=== PATIENT | female | born 1995 | race Caucasian/White ===

== ENCOUNTER 2016-11-04 08:51 | Emergency (ER) | payer OTHER ==
[2016-11-04 08:57] VITALS: RESP 16; TEMP 98.1
[2016-11-04] MEDS ORDERED: SODIUM CHLORIDE 0.9% 500 ML IV STA (09:45)
--- NOTE | 2016-11-04 09:51 | ED ---
General Adult HPI - General Chief complaint: Allergic Reaction Stated complaint: poss allergic reaction, feet turning purple Time Seen by Provider: 11/04/16 09:09 Source: patient, RN notes reviewed, old records reviewed Mode of arrival: wheelchair Limitations: no limitations - History of Present Illness Initial comments: This is a 21-year-old female ER for evaluation. This patient presents for evaluation of leg numbness and tingling and pain. She has bilateral lower foot pain. She has history of Crohn's IBD and irritable bowel disease currently taking infusions from [facility]. Patient had recent infusion last week. She denies any fevers. No other issues. No recent nausea vomiting or diarrhea denies blood in her stool. Patient's that she's had leg pain and feet numbness and tingling on and off for 2 days but worsening last night. Her feet feel very cold bilaterally. - Related Data Home Medications Medication Instructions Recorded Confirmed inFLIXimab [Remicade] 500 mg IVPB Q56D 03/31/14 11/04/16 Medroxyprogesterone Acetate 150 mg IM Q90D 05/12/15 11/04/16 [Depo-Provera] HYDROcodone/APAP 5-325MG [[place] 1 tab PO Q8H PRN 11/04/16 11/04/16 5-325] Omeprazole 20 mg PO DAILY PRN 11/04/16 11/04/16 Previous Rx's Medication Instructions Recorded Ondansetron [Zofran] 4 mg PO Q8HR PRN #12 tab 05/13/15 Allergies Allergy/AdvReac Type Severity Reaction Status Date / Time amoxicillin trihydrate Allergy Unknown Verified 11/04/16 09:24 [From Augmentin] potassium clavulanate Allergy Unknown Verified 11/04/16 09:24 [From Augmentin] Review of Systems ROS Statement: Those systems with pertinent positive or pertinent negative responses have been documented in the HPI. ROS Other: All systems not noted in ROS Statement are negative. Past Medical History Additional Past Medical History / Comment(s): crohns, IBD, colitis History of Any Multi-Drug Resistant Organisms: MRSA Date of last positivie culture/infection: 2002 MDRO Source:: Hip Past Surgical History: No Surgical Hx Reported Additional Past Surgical History / Comment(s): PMH Chrons Past Psychological History: No Psychological Hx Reported Smoking Status: Never smoker Past Alcohol Use History: None Reported Past Drug Use History: None Reported General Exam - General Exam Comments Initial Comments: Sluggish capillary refill bilateral lower extremity Limitations: no limitations General appearance: alert, in no apparent distress Head exam: Present: atraumatic, normocephalic, normal inspection Eye exam: Present: normal appearance, PERRL, EOMI. Absent: scleral icterus, conjunctival injection, periorbital swelling ENT exam: Present: normal exam, mucous membranes moist Neck exam: Present: normal inspection. Absent: tenderness, meningismus, lymphadenopathy Respiratory exam: Present: normal lung sounds bilaterally. Absent: respiratory distress, wheezes, rales, rhonchi, stridor Cardiovascular Exam: Present: regular rate, normal rhythm, normal heart sounds. Absent: systolic murmur, diastolic murmur, rubs, gallop, clicks GI/Abdominal exam: Present: soft, normal bowel sounds. Absent: distended, tenderness, guarding, rebound, rigid Extremities exam: Present: normal inspection, full ROM, normal capillary refill. Absent: tenderness, pedal edema, joint swelling, calf tenderness Back exam: Present: normal inspection Neurological exam: Present: alert, oriented X3, CN II-XII intact Psychiatric exam: Present: normal affect, normal mood Skin exam: Present: warm, dry, intact, normal color. Absent: rash Course Vital Signs 11/04/16 11/04/16 08:53 10:55 Temperature 98.1 F Pulse Rate 88 70 Respiratory 16 16 Rate Blood Pressure 112/70 101/53 O2 Sat by Pulse 98 Oximetry Medical Decision Making - Medical Decision Making Plan and female seen and evaluated for feet coldness and pallor. Patient does have good Doppler pulses good palpable pulses on both feet. He will with his normal will follow up with family care for evaluation regarding possible medication reaction versus earlier and on syndrome - Lab Data Result diagrams: 11/04/16 10:05 11/04/16 10:05 Lab Results 11/04/16 11/04/16 11/04/16 Range/Units 10:05 10:05 10:05 WBC 8.8 (3.8-10.6) k/uL RBC 4.77 (3.80-5.40) m/uL Hgb 14.6 (11.4-16.0) gm/dL Hct 44.0 (34.0-46.0) % MCV 92.1 (80.0-100.0) fL MCH 30.6 (25.0-35.0) pg MCHC 33.2 (31.0-37.0) g/dL RDW 12.6 (11.5-15.5) % Plt Count 231 (150-450) k/uL Neutrophils % 63 % Lymphocytes % 30 % Monocytes % 4 % Eosinophils % 0 % Basophils % 0 % Neutrophils # 5.6 (1.3-7.7) k/uL Lymphocytes # 2.6 (1.0-4.8) k/uL Monocytes # 0.4 (0-1.0) k/uL Eosinophils # 0.0 (0-0.7) k/uL Basophils # 0.0 (0-0.2) k/uL PT 11.2 (9.0-12.0) sec INR 1.1 (<1.1) APTT 23.5 (22.0-30.0) sec Sodium 142 (137-145) mmol/L Potassium 4.1 (3.5-5.1) mmol/L Chloride 104 (98-107) mmol/L Carbon Dioxide 23 (22-30) mmol/L Anion Gap 15 mmol/L BUN 8 (7-17) mg/dL Creatinine 0.68 (0.52-1.04) mg/dL Est GFR (MDRD) Af Amer >60 (>60 ml/min/1.73 sqM) Est GFR (MDRD) Non-Af >60 (>60 ml/min/1.73 sqM) Glucose 84 (74-99) mg/dL Calcium 10.0 (8.4-10.2) mg/dL Magnesium 2.1 (1.6-2.3) mg/dL Total Bilirubin 0.7 (0.2-1.3) mg/dL AST 23 (14-36) U/L ALT 26 (9-52) U/L Alkaline Phosphatase 75 (38-126) U/L Total Protein 9.4 H (6.3-8.2) g/dL Albumin 4.9 (3.5-5.0) g/dL Blood Type Blood Type Recheck Antibody Screen Spec Expiration Date 11/04/16 Range/Units 10:05 WBC (3.8-10.6) k/uL RBC (3.80-5.40) m/uL Hgb (11.4-16.0) gm/dL Hct (34.0-46.0) % MCV (80.0-100.0) fL MCH (25.0-35.0) pg MCHC (31.0-37.0) g/dL RDW (11.5-15.5) % Plt Count (150-450) k/uL Neutrophils % % Lymphocytes % % Monocytes % % Eosinophils % % Basophils % % Neutrophils # (1.3-7.7) k/uL Lymphocytes # (1.0-4.8) k/uL Monocytes # (0-1.0) k/uL Eosinophils # (0-0.7) k/uL Basophils # (0-0.2) k/uL PT (9.0-12.0) sec INR (<1.1) APTT (22.0-30.0) sec Sodium (137-145) mmol/L Potassium (3.5-5.1) mmol/L Chloride (98-107) mmol/L Carbon Dioxide (22-30) mmol/L Anion Gap mmol/L BUN (7-17) mg/dL Creatinine (0.52-1.04) mg/dL Est GFR (MDRD) Af Amer (>60 ml/min/1.73 sqM) Est GFR (MDRD) Non-Af (>60 ml/min/1.73 sqM) Glucose (74-99) mg/dL Calcium (8.4-10.2) mg/dL Magnesium (1.6-2.3) mg/dL Total Bilirubin (0.2-1.3) mg/dL AST (14-36) U/L ALT (9-52) U/L Alkaline Phosphatase (38-126) U/L Total Protein (6.3-8.2) g/dL Albumin (3.5-5.0) g/dL Blood Type O Positive Blood Type Recheck No Antibody Screen NEGATIVE Spec Expiration Date 11/07/2016 - 2304 Disposition Clinical Impression: Paresthesia of foot, bilateral Disposition: HOME SELF-CARE Condition: Good Instructions: Paresthesia (ED) Referrals: Donavan Guzman DO [Primary Care Provider] - 1-2 days
[2016-11-04 10:25] LABS: Basophils % (A) 0 %; CH 31.3; CHCM 34.1; Eosinophils % (A) 0 %; HDW 2.04; HGB 14.6 gm/dL (11.4-16.0); Luc # (Auto) 0.19; Luc % (Auto) 2; Lymphocytes # (A) 2.6 k/uL (1.0-4.8); Lymphocytes % (A) 30 %; MCH 30.6 pg (25.0-35.0); MCHC 33.2 g/dL (31.0-37.0); MCV 92.1 fL (80.0-100.0); Mean Platelet Volume 7.4; Monocytes # (A) 0.4 k/uL (0-1.0); Monocytes % (A) 4 %; Neutrophils # (A) 5.6 k/uL (1.3-7.7); Neutrophils % (A) 63 %; RBC 4.77 m/uL (3.80-5.40); RDW 12.6 % (11.5-15.5); WBC 8.8 k/uL (3.8-10.6); WBC (Perox) 9.05
[2016-11-04 10:32] LABS: INR 1.1 (<1.1); Partial Thromboplastin Time 23.5 sec (22.0-30.0); Prothrombin Time 11.2 sec (9.0-12.0)
[2016-11-04 10:39] LABS: ALT 26 U/L (9-52); AST 23 U/L (14-36); Alkaline Phosphatase 75 U/L (38-126); Anion Gap 15 mmol/L; Blood Urea Nitrogen 8 mg/dL (7-17); Carbon Dioxide 23 mmol/L (22-30); Chloride 104 mmol/L (98-107); Glucose 84 mg/dL (74-99); Magnesium 2.1 mg/dL (1.6-2.3); Non-African American GFR(MDRD) >60 (>60 ml/min/1.73 sqM); Potassium 4.1 mmol/L (3.5-5.1); Sodium 142 mmol/L (137-145); Total Bilirubin 0.7 mg/dL (0.2-1.3); Total Protein 9.4 g/dL (6.3-8.2)
[2016-11-04 10:57] VITALS: BP 101/53; PULSE 70
== END 2016-11-04 10:56 | disposition home or self-care (01) ==
LOC: EC 08:51
DX: R20.8 Other disturbances of skin sensation (principal); K50.90 Crohn's disease, unspecified, without complications; K52.3 Indeterminate colitis; Z86.14 Personal history of Methicillin resistant Staphylococcus aureus infection; Z88.0 Allergy status to penicillin; Z79.899 Other long term (current) drug therapy
CPT/HCPCS: 36415; 80053; 83735; 85025; 85610; 85730; 86850; 86900; 86901; 96360; 99283

== ENCOUNTER 2017-03-14 18:55 | Emergency (ER) | payer OTHER ==
[2017-03-14] MEDS ORDERED: RX INFO: IV CONTRAST WAS GIVEN 1 EACH MISC MISCELLANE PRN (19:41)
[2017-03-14] MEDS ORDERED: SODIUM CHLORIDE 0.9% 1,000 ML IV STA (19:42)
[2017-03-14] MEDS ORDERED: FAMOTIDINE 20 MG/2 ML VIAL IV STA (19:42)
[2017-03-14] MEDS ORDERED: ONDANSETRON 4 MG/2 ML VIAL IVP STA (19:42)
[2017-03-14] MEDS ORDERED: HYDROmorphone 1 MG/ML 1 ML SYRINGE IVP STA (19:42)
[2017-03-14] MEDS ORDERED: KETOROLAC 30 MG/ML 1 ML VIAL IVP STA (19:42)
--- NOTE | 2017-03-14 19:45 | ED ---
General Adult HPI - General Chief complaint: Abdominal Pain Stated complaint: poss bowel obstruction Time Seen by Provider: 03/14/17 19:28 Source: patient, RN notes reviewed Mode of arrival: ambulatory Limitations: no limitations - History of Present Illness Initial comments: 21-year-old female presents to the emergency Department chief complaint of concern for obstruction. Patient suffers from Crohn's disease. She was discharged on Friday after small bowel obstruction at [facility]. Patient states today she started to develop lower abdominal pain nausea vomiting to the bowel movement this morning but has not passed gas since. Patient states it feels much like the obstruction that she was diagnosed with a week ago. Patient states that she did not know she had a fever prior to arrival. Patient states she's not been feeling well for the past few days. They're concerned due to the patient's symptoms so they thought that they should be seen. Patient denies any recent shortness of breath, chest pain, back pain, numbness or tingling, dysuria or hematuria, constipation or diarrhea , headaches or visual changes, or any other current symptoms. - Related Data Home Medications Medication Instructions Recorded Confirmed Medroxyprogesterone Acetate 150 mg IM Q90D 05/12/15 03/14/17 [Depo-Provera] Aspirin/Acetaminophen/Caffeine 2 tab PO ONCE PRN 03/14/17 03/14/17 [Excedrin Migraine Caplet] Budesonide [Entocort EC] 3 mg PO TID 03/14/17 03/14/17 Dicyclomine [Bentyl] 20 mg PO DAILY PRN 03/14/17 03/14/17 Fluticasone Nasal [place] [Flonase 1 spray EA NOSTRIL DAILY PRN 03/14/17 03/14/17 Nasal [place]] Loratadine [Claritin] 10 mg PO DAILY 03/14/17 03/14/17 Lurasidone [Latuda] 40 mg PO HS 03/14/17 03/14/17 Prednisone (Unknown Dose) 1 tab PO DAILY 03/14/17 03/14/17 diphenhydrAMINE HCL [Benadryl] 25 mg PO TID PRN 03/14/17 03/14/17 Previous Rx's Medication Instructions Recorded Ondansetron [Zofran] 4 mg PO Q8HR PRN #12 tab 05/13/15 Allergies Allergy/AdvReac Type Severity Reaction Status Date / Time amoxicillin trihydrate Allergy Rash/Hives Verified 03/14/17 20:36 [From Augmentin] potassium clavulanate Allergy Rash/Hives Verified 03/14/17 20:36 [From Augmentin] Review of Systems ROS Statement: Those systems with pertinent positive or pertinent negative responses have been documented in the HPI. ROS Other: All systems not noted in ROS Statement are negative. Past Medical History Additional Past Medical History / Comment(s): crohns, IBD, colitis History of Any Multi-Drug Resistant Organisms: MRSA Date of last positivie culture/infection: 2002 MDRO Source:: Hip Past Surgical History: No Surgical Hx Reported Additional Past Surgical History / Comment(s): wisdom teeth Past Psychological History: No Psychological Hx Reported Smoking Status: Never smoker Past Alcohol Use History: None Reported Past Drug Use History: None Reported General Exam - General Exam Comments Initial Comments: General: The patient is awake and alert, in no distress, and does not appear acutely ill. Eye: Pupils are equal, round and reactive to light, extra-ocular movements are intact; there is normal conjunctiva bilaterally. No signs of icterus. Ears, nose, mouth and throat: There are moist mucous membranes. Neck: The neck is supple, there is no tenderness. Cardiovascular: There is a regular rate and rhythm. No murmur, rub or gallop is appreciated. Respiratory: Lungs are clear to auscultation, respirations are non-labored, breath sounds are equal. No wheezes, stridor, rales, or rhonchi. Gastrointestinal: Hard and distended non-tender abdomen without masses or organomegaly noted. There is no rebound or guarding present. No CVA tenderness. Bowel sounds are unremarkable. Back: There is no tenderness to palpation in the midline. There is no obvious deformity. No rashes noted. Musculoskeletal: Normal ROM, no tenderness, There is no pedal edema. There is no calf tenderness or swelling. Sensation intact. Pulses equal bilaterally 2+. Neurological: CN II-XII intact, There are no obvious motor or sensory deficits. Coordination appears grossly intact. Speech is normal. Skin: Skin is warm and dry and no rashes or lesions are noted. Psychiatric: Cooperative, appropriate mood & affect, normal judgment. Limitations: no limitations Course Vital Signs 03/14/17 19:20 Temperature 101.7 F H Pulse Rate 117 H Respiratory 20 Rate Blood Pressure 111/70 O2 Sat by Pulse 98 Oximetry Medical Decision Making - Medical Decision Making 21-year-old female presents emergency Department chief complaint of abdominal pain nausea vomiting. Patient does have a history of small bowel obstruction that has resolved unless she was discharged on Friday. At this time CAT scan and blood work is reviewed. She does appear to have an elevated white blood cell count. However this is most likely due to steroid. This time patient is reassessed and abdomen is soft and nontender and she states that she is feeling better. At this time we will send the urine for culture. 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 We did discuss return parameters and all the patient's questions. She stated that she understood and she is in agreement with this plan. This time they will be discharged home. - Lab Data Result diagrams: 03/14/17 20:00 03/14/17 20:00 Lab Results 03/14/17 03/14/17 03/14/17 Range/Units 20:00 20:00 20:00 WBC 16.7 H (3.8-10.6) k/uL RBC 4.92 (3.80-5.40) m/uL Hgb 15.4 (11.4-16.0) gm/dL Hct 44.1 (34.0-46.0) % MCV 89.8 (80.0-100.0) fL MCH 31.4 (25.0-35.0) pg MCHC 35.0 (31.0-37.0) g/dL RDW 12.7 (11.5-15.5) % Plt Count 222 (150-450) k/uL Neutrophils % 83 % Lymphocytes % 10 % Monocytes % 6 % Eosinophils % 1 % Basophils % 0 % Neutrophils # 13.9 H (1.3-7.7) k/uL Lymphocytes # 1.6 (1.0-4.8) k/uL Monocytes # 0.9 (0-1.0) k/uL Eosinophils # 0.2 (0-0.7) k/uL Basophils # 0.0 (0-0.2) k/uL PT (9.0-12.0) sec INR (<1.2) APTT (22.0-30.0) sec Sodium 139 (137-145) mmol/L Potassium 4.0 (3.5-5.1) mmol/L Chloride 104 (98-107) mmol/L Carbon Dioxide 21 L (22-30) mmol/L Anion Gap 14 mmol/L BUN 8 (7-17) mg/dL Creatinine 0.70 (0.52-1.04) mg/dL Est GFR (MDRD) Af Amer >60 (>60 ml/min/1.73 sqM) Est GFR (MDRD) Non-Af >60 (>60 ml/min/1.73 sqM) Glucose 90 (74-99) mg/dL Plasma Lactic Acid Rehan (0.7-2.0) mmol/L Calcium 9.7 (8.4-10.2) mg/dL Phosphorus 3.8 (2.5-4.5) mg/dL Magnesium 2.0 (1.6-2.3) mg/dL Total Bilirubin 0.3 (0.2-1.3) mg/dL AST 17 (14-36) U/L ALT 30 (9-52) U/L Alkaline Phosphatase 91 (38-126) U/L Total Protein 8.4 H (6.3-8.2) g/dL Albumin 4.8 (3.5-5.0) g/dL Amylase 65 (30-110) U/L Lipase 73 (23-300) U/L Urine Color Urine Appearance (Clear) Urine pH (5.0-8.0) Ur Specific [place] (1.001-1.035) Urine Protein (Negative) Urine Glucose (UA) (Negative) Urine Ketones (Negative) Urine Blood (Negative) Urine Nitrite (Negative) Urine Bilirubin (Negative) Urine Urobilinogen (<2.0) mg/dL Ur Leukocyte Esterase (Negative) Urine RBC (0-5) /hpf Urine WBC (0-5) /hpf Ur Squamous Epith Cells (0-4) /hpf Urine Mucus (None) /hpf Urine HCG, Qual Not Detected (Not Detectd) 03/14/17 03/14/17 03/14/17 Range/Units 20:00 20:00 20:00 WBC (3.8-10.6) k/uL RBC (3.80-5.40) m/uL Hgb (11.4-16.0) gm/dL Hct (34.0-46.0) % MCV (80.0-100.0) fL MCH (25.0-35.0) pg MCHC (31.0-37.0) g/dL RDW (11.5-15.5) % Plt Count (150-450) k/uL Neutrophils % % Lymphocytes % % Monocytes % % Eosinophils % % Basophils % % Neutrophils # (1.3-7.7) k/uL Lymphocytes # (1.0-4.8) k/uL Monocytes # (0-1.0) k/uL Eosinophils # (0-0.7) k/uL Basophils # (0-0.2) k/uL PT 10.6 (9.0-12.0) sec INR 1.1 (<1.2) APTT 23.7 (22.0-30.0) sec Sodium (137-145) mmol/L Potassium (3.5-5.1) mmol/L Chloride (98-107) mmol/L Carbon Dioxide (22-30) mmol/L Anion Gap mmol/L BUN (7-17) mg/dL Creatinine (0.52-1.04) mg/dL Est GFR (MDRD) Af Amer (>60 ml/min/1.73 sqM) Est GFR (MDRD) Non-Af (>60 ml/min/1.73 sqM) Glucose (74-99) mg/dL Plasma Lactic Acid Rehan 1.5 (0.7-2.0) mmol/L Calcium (8.4-10.2) mg/dL Phosphorus (2.5-4.5) mg/dL Magnesium (1.6-2.3) mg/dL Total Bilirubin (0.2-1.3) mg/dL AST (14-36) U/L ALT (9-52) U/L Alkaline Phosphatase (38-126) U/L Total Protein (6.3-8.2) g/dL Albumin (3.5-5.0) g/dL Amylase (30-110) U/L Lipase (23-300) U/L Urine Color Yellow Urine Appearance Clear (Clear) Urine pH 7.0 (5.0-8.0) Ur Specific [place] 1.014 (1.001-1.035) Urine Protein Negative (Negative) Urine Glucose (UA) Negative (Negative) Urine Ketones Negative (Negative) Urine Blood Trace H (Negative) Urine Nitrite Negative (Negative) Urine Bilirubin Negative (Negative) Urine Urobilinogen <2.0 (<2.0) mg/dL Ur Leukocyte Esterase Large H (Negative) Urine RBC 6 H (0-5) /hpf Urine WBC 38 H (0-5) /hpf Ur Squamous Epith Cells 4 (0-4) /hpf Urine Mucus Rare H (None) /hpf Urine HCG, Qual (Not Detectd) - Radiology Data Radiology results: report reviewed, image reviewed Disposition Clinical Impression: Abdominal pain Disposition: HOME SELF-CARE Condition: Stable Instructions: Abdominal Pain (ED) Additional Instructions: Please use medication as discussed. Please follow up with family doctor if symptoms have not improved over the next two days. Please return to the emergency room if your symptoms increase or worsen or for any other concerns. Referrals: Donavan Guzman DO [Primary Care Provider] - 1-2 days Time of Disposition: 21:17
[2017-03-14 20:17] LABS: Basophils % (A) 0 %; CH 30.8; CHCM 34.5; Eosinophils # (A) 0.2 k/uL (0-0.7); Eosinophils % (A) 1 %; HCT 44.1 % (34.0-46.0); HDW 2.26; HGB 15.4 gm/dL (11.4-16.0); Luc # (Auto) 0.14; Luc % (Auto) 1; Lymphocytes # (A) 1.6 k/uL (1.0-4.8); Lymphocytes % (A) 10 %; MCH 31.4 pg (25.0-35.0); MCV 89.8 fL (80.0-100.0); Mean Platelet Volume 7.4; Monocytes # (A) 0.9 k/uL (0-1.0); Monocytes % (A) 6 %; Neutrophils # (A) 13.9 k/uL (1.3-7.7); Neutrophils % (A) 83 %; RBC 4.92 m/uL (3.80-5.40); RDW 12.7 % (11.5-15.5); WBC 16.7 k/uL (3.8-10.6); WBC (Perox) 16.86
[2017-03-14 20:27] LABS: Appearance,Urine Clear (Clear); Bilirubin,Urine Negative (Negative); Glucose,Urine (UA) Negative (Negative); Ketones,Urine Negative (Negative); Protein,Urine Negative (Negative); Specific Gravity,Urine 1.014 (1.001-1.035)
[2017-03-14 20:28] LABS: ALT 30 U/L (9-52); AST 17 U/L (14-36); Alkaline Phosphatase 91 U/L (38-126); Amylase 65 U/L (30-110); Anion Gap 14 mmol/L; Blood Urea Nitrogen 8 mg/dL (7-17); Calcium 9.7 mg/dL (8.4-10.2); Carbon Dioxide 21 mmol/L (22-30); Chloride 104 mmol/L (98-107); Glucose 90 mg/dL (74-99); Leukocyte Esterase,Urine Large (Negative); Mucus,Urine Rare /hpf; Nitrite,Urine Negative (Negative); Non-African American GFR(MDRD) >60 (>60 ml/min/1.73 sqM); Particle Count 2832; Phosphorous 3.8 mg/dL (2.5-4.5); RBC,Urine 6 /hpf (0-5); Sodium 139 mmol/L (137-145); Squamous Epithelial Cell,Urine 4 /hpf (0-4); Total Bilirubin 0.3 mg/dL (0.2-1.3); Total Protein 8.4 g/dL (6.3-8.2); UA Billing (MACRO vs. MICRO) MICRO; Urobilinogen,Urine <2.0 mg/dL (<2.0); WBC,Urine 38 /hpf (0-5)
[2017-03-14 21:01] LABS: INR 1.1 (<1.2); Partial Thromboplastin Time 23.7 sec (22.0-30.0); Prothrombin Time 10.6 sec (9.0-12.0)
--- NOTE | 2017-03-14 21:03 | CT ---
EXAMINATION TYPE: CT abdomen pelvis w con DATE OF EXAM: 03/14/2017 COMPARISON: 12/21/2014 HISTORY: Generalized pain with nausea. Recent bowel obstruction CT DLP: 435.2 mGycm Automated exposure control for dose reduction was used. TECHNIQUE: Helical acquisition of images was performed from the lung bases through the pelvis. CONTRAST: Performed without Oral Contrast and with IV Contrast, patient injected with 100 mL of Omnipaque 300. FINDINGS: Lung bases are clear. There is no pleural effusion. Heart size is normal. Liver spleen pancreas appear normal. Bile ducts are not dilated. Gallbladder appears normal. There is no adrenal mass. Kidneys show satisfactory contrast opacification. There is no hydronephrosi s. There is no retroperitoneal adenopathy. There is no ascites. Bladder distends smoothly. I see no p elvic mass. There is no intestinal wall thickening. There are no dilated loops. Appendix is not seen. There is no sign of appendicitis. There is no sign of a hernia. Bony structures are intact. Uterus is retroverted. IMPRESSION: NEGATIVE CT SCAN OF THE ABDOMEN AND PELVIS. NO ADVERSE CHANGE COMPARED TO OLD EXAM. NO EVIDENCE OF IN FLAMMATORY BOWEL DISEASE.
[2017-03-14 21:19] VITALS: BP 101/59; PULSE 89; RESP 18; TEMP 98.2
== END 2017-03-14 21:29 | disposition home or self-care (01) ==
LOC: EC 18:55
DX: R10.30 Lower abdominal pain, unspecified (principal); D72.829 Elevated white blood cell count, unspecified; R11.2 Nausea with vomiting, unspecified; R50.9 Fever, unspecified; K50.90 Crohn's disease, unspecified, without complications; Z79.3 Long term (current) use of hormonal contraceptives; Z79.52 Long term (current) use of systemic steroids; Z79.899 Other long term (current) drug therapy; Z88.0 Allergy status to penicillin; Z87.19 Personal history of other diseases of the digestive system
CPT/HCPCS: 36415; 80053; 82150; 83605; 83690; 83735; 84100; 85025; 85610; 85730; 81001; 81025; 87040; 87086; 74177; 99284; 96374; 96375 ×3; 96361; J2405; J1885; J1170; Q9967

== ENCOUNTER 2017-11-19 22:09 | Emergency (ER) | payer OTHER ==
[2017-11-19 22:23] VITALS: RESP 18
[2017-11-19] MEDS ORDERED: METOCLOPRAMIDE 5 MG/ML 2 ML VIAL IVP STA (22:28)
[2017-11-19] MEDS ORDERED: SODIUM CHLORIDE 0.9% 1,000 ML IV STA (22:28)
[2017-11-19] MEDS ORDERED: MORPHINE SULFATE/PF 10MG/10ML VL IV STA (22:28)
[2017-11-19] MEDS ORDERED: RX INFO: IV CONTRAST WAS GIVEN 1 EACH MISC MISCELLANE PRN (22:28)
[2017-11-19] MEDS ORDERED: PANTOPRAZOLE 40 MG/10 ML VIAL IVP STA (22:28)
--- NOTE | 2017-11-19 22:32 | ED ---
General Adult HPI - General Chief complaint: Abdominal Pain Stated complaint: Abdominal pain Time Seen by Provider: 11/19/17 22:24 Source: patient, family, RN notes reviewed Mode of arrival: ambulatory Limitations: no limitations - History of Present Illness Initial comments: Patient is a pleasant 22-year-old female presenting to the emergency department complaining of abdominal discomfort. Symptoms started 2 days ago. Patient has discomfort somewhat in the epigastrium however more in the left lower quadrant. Patient has had some nausea without vomiting. Patient has had some diarrhea. Patient has had temperature at home up to 99. Patient does have a history of Crohn's disease. Patient does have a history of previous bowel resection secondary to obstruction. This was complicated with sepsis and patient had secondary resection because of this. - Related Data Home Medications Medication Instructions Recorded Confirmed Medroxyprogesterone Acetate 150 mg IM Q90D 05/12/15 11/19/17 [Depo-Provera] Fluticasone Nasal [place] [Flonase 1 spray EA NOSTRIL DAILY PRN 03/14/17 11/19/17 Nasal [place]] Loratadine [Claritin] 10 mg PO DAILY PRN 03/14/17 11/19/17 Dicyclomine [Bentyl] 10 mg PO BID 06/05/17 11/19/17 Lurasidone HCl [Latuda] 60 mg PO HS 06/05/17 11/19/17 Mirtazapine [Remeron] 15 mg PO HS 11/19/17 11/19/17 Omeprazole 40 mg PO DAILY 11/19/17 11/19/17 Previous Rx's Medication Instructions Recorded Hydrocodone/Acetaminophen [[place] 1 each PO Q4HR PRN #15 tab 11/20/17 5-325] Allergies Allergy/AdvReac Type Severity Reaction Status Date / Time adalimumab [From Humira] Allergy RASH/NAUSEA/VOMITING/JOINT Verified 11/19/17 22:44 PAIN amoxicillin trihydrate Allergy Rash/Hives Verified 11/19/17 22:44 [From Augmentin] potassium clavulanate Allergy Rash/Hives Verified 11/19/17 22:44 [From Augmentin] Review of Systems ROS Statement: Those systems with pertinent positive or pertinent negative responses have been documented in the HPI. ROS Other: All systems not noted in ROS Statement are negative. Constitutional: Reports: fever (Up to 99) Eyes: Denies: eye pain ENT: Denies: ear pain Respiratory: Denies: cough Cardiovascular: Denies: chest pain Endocrine: Denies: fatigue Gastrointestinal: Reports: abdominal pain, nausea, diarrhea. Denies: vomiting, constipation Genitourinary: Denies: dysuria Musculoskeletal: Denies: back pain Skin: Denies: rash Neurological: Denies: weakness Past Medical History Additional Past Medical History / Comment(s): crohns, IBD, colitis History of Any Multi-Drug Resistant Organisms: MRSA Date of last positivie culture/infection: 2002 MDRO Source:: Hip Additional Past Surgical History / Comment(s): wisdom teeth, bowel resection x 2 , sepsis Past Psychological History: No Psychological Hx Reported Smoking Status: Never smoker Past Alcohol Use History: Occasional Past Drug Use History: None Reported General Exam Limitations: no limitations General appearance: alert, in no apparent distress Head exam: Present: atraumatic Eye exam: Present: normal appearance, PERRL ENT exam: Present: normal oropharynx Neck exam: Present: normal inspection Respiratory exam: Present: normal lung sounds bilaterally Cardiovascular Exam: Present: regular rate, normal rhythm Expanded Peripheral pulses: 2+: Posterior Tibialis (R), Posterior Tibialis (L) GI/Abdominal exam: Present: soft, tenderness (Mild epigastric tenderness to palpation. Moderate left sided abdominal tenderness), guarding (Mild left-sided ), normal bowel sounds. Absent: distended, rebound, rigid, pulsatile mass Extremities exam: Present: normal inspection Neurological exam: Present: alert Psychiatric exam: Present: normal affect, normal mood Skin exam: Present: normal color Course Vital Signs 11/19/17 22:21 Temperature 98.4 F Pulse Rate 89 Respiratory 18 Rate Blood Pressure 114/69 O2 Sat by Pulse 98 Oximetry Medical Decision Making - Medical Decision Making Patient reevaluated and resting comfortably in bed. Patient is updated on results and is comfortable with discharge home. Mother does request patient have a few pain pills for home. - Lab Data Result diagrams: 11/19/17 22:56 11/19/17 22:56 Lab Results 11/19/17 11/19/17 11/19/17 Range/Units 22:56 22:56 23:03 WBC 8.5 (3.8-10.6) k/uL RBC 4.37 (3.80-5.40) m/uL Hgb 12.0 (11.4-16.0) gm/dL Hct 37.6 (34.0-46.0) % MCV 86.2 (80.0-100.0) fL MCH 27.4 (25.0-35.0) pg MCHC 31.8 (31.0-37.0) g/dL RDW 15.2 (11.5-15.5) % Plt Count 251 (150-450) k/uL Neutrophils % 57 % Lymphocytes % 32 % Monocytes % 6 % Eosinophils % 2 % Basophils % 1 % Neutrophils # 4.9 (1.3-7.7) k/uL Lymphocytes # 2.7 (1.0-4.8) k/uL Monocytes # 0.5 (0-1.0) k/uL Eosinophils # 0.2 (0-0.7) k/uL Basophils # 0.0 (0-0.2) k/uL PT (9.0-12.0) sec INR (<1.2) APTT (22.0-30.0) sec Sodium 142 (137-145) mmol/L Potassium 4.4 (3.5-5.1) mmol/L Chloride 108 H (98-107) mmol/L Carbon Dioxide 21 L (22-30) mmol/L Anion Gap 13 mmol/L BUN 11 (7-17) mg/dL Creatinine 0.50 L (0.52-1.04) mg/dL Est GFR (CKD-EPI)AfAm >90 (>60 ml/min/1.73 sqM) Est GFR (CKD-EPI)NonAf >90 (>60 ml/min/1.73 sqM) Glucose 89 (74-99) mg/dL Calcium 9.2 (8.4-10.2) mg/dL Total Bilirubin 0.2 (0.2-1.3) mg/dL AST 20 (14-36) U/L ALT 18 (9-52) U/L Alkaline Phosphatase 61 (38-126) U/L Total Protein 7.4 (6.3-8.2) g/dL Albumin 3.9 (3.5-5.0) g/dL Amylase 82 (30-110) U/L Lipase 167 (23-300) U/L Urine Color Light Yellow Urine Appearance Clear (Clear) Urine pH 6.0 (5.0-8.0) Ur Specific [place] 1.013 (1.001-1.035) Urine Protein Negative (Negative) Urine Glucose (UA) Negative (Negative) Urine Ketones Negative (Negative) Urine Blood Negative (Negative) Urine Nitrite Negative (Negative) Urine Bilirubin Negative (Negative) Urine Urobilinogen <2.0 (<2.0) mg/dL Ur Leukocyte Esterase Moderate H (Negative) Urine RBC 1 (0-5) /hpf Urine WBC 2 (0-5) /hpf Ur Squamous Epith Cells 2 (0-4) /hpf Urine Mucus Rare H (None) /hpf Urine HCG, Qual (Not Detectd) 11/19/17 11/19/17 Range/Units 23:03 23:19 WBC (3.8-10.6) k/uL RBC (3.80-5.40) m/uL Hgb (11.4-16.0) gm/dL Hct (34.0-46.0) % MCV (80.0-100.0) fL MCH (25.0-35.0) pg MCHC (31.0-37.0) g/dL RDW (11.5-15.5) % Plt Count (150-450) k/uL Neutrophils % % Lymphocytes % % Monocytes % % Eosinophils % % Basophils % % Neutrophils # (1.3-7.7) k/uL Lymphocytes # (1.0-4.8) k/uL Monocytes # (0-1.0) k/uL Eosinophils # (0-0.7) k/uL Basophils # (0-0.2) k/uL PT 9.6 (9.0-12.0) sec INR 1.0 (<1.2) APTT 21.6 L (22.0-30.0) sec Sodium (137-145) mmol/L Potassium (3.5-5.1) mmol/L Chloride (98-107) mmol/L Carbon Dioxide (22-30) mmol/L Anion Gap mmol/L BUN (7-17) mg/dL Creatinine (0.52-1.04) mg/dL Est GFR (CKD-EPI)AfAm (>60 ml/min/1.73 sqM) Est GFR (CKD-EPI)NonAf (>60 ml/min/1.73 sqM) Glucose (74-99) mg/dL Calcium (8.4-10.2) mg/dL Total Bilirubin (0.2-1.3) mg/dL AST (14-36) U/L ALT (9-52) U/L Alkaline Phosphatase (38-126) U/L Total Protein (6.3-8.2) g/dL Albumin (3.5-5.0) g/dL Amylase (30-110) U/L Lipase (23-300) U/L Urine Color Urine Appearance (Clear) Urine pH (5.0-8.0) Ur Specific [place] (1.001-1.035) Urine Protein (Negative) Urine Glucose (UA) (Negative) Urine Ketones (Negative) Urine Blood (Negative) Urine Nitrite (Negative) Urine Bilirubin (Negative) Urine Urobilinogen (<2.0) mg/dL Ur Leukocyte Esterase (Negative) Urine RBC (0-5) /hpf Urine WBC (0-5) /hpf Ur Squamous Epith Cells (0-4) /hpf Urine Mucus (None) /hpf Urine HCG, Qual Not Detected (Not Detectd) - Radiology Data Radiology results: report reviewed (Computed tomography scan abdomen pelvis shows previous surgery. Clearing of previous inflammatory changes. No evidence of obstruction. No free air or fluid.) Disposition Clinical Impression: Abdominal pain Disposition: HOME SELF-CARE Condition: Stable Instructions: Abdominal Pain (ED) Additional Instructions: Please follow-up with your primary care physician as well as fur blower operator and surgeon in the next couple days for recheck. Return for fever, vomiting, increased pain, worsening symptoms or other concerns. Prescriptions: Hydrocodone/Acetaminophen [[place] 5-325] 1 each PO Q4HR PRN #15 tab PRN Reason: Pain Referrals: Donavan Guzman DO [Primary Care Provider] - 1-2 days Time of Disposition: 00:15
[2017-11-19 23:11] LABS: Basophils % (A) 1 %; Eosinophils # (A) 0.2 k/uL (0-0.7); Eosinophils % (A) 2 %; HCT 37.6 % (34.0-46.0); Lymphocytes # (A) 2.7 k/uL (1.0-4.8); Lymphocytes % (A) 32 %; MCH 27.4 pg (25.0-35.0); MCHC 31.8 g/dL (31.0-37.0); MCV 86.2 fL (80.0-100.0); Mean Platelet Volume 7.8; Monocytes # (A) 0.5 k/uL (0-1.0); Monocytes % (A) 6 %; Neutrophils # (A) 4.9 k/uL (1.3-7.7); Neutrophils % (A) 57 %; Platelet Count 251 k/uL (150-450); RBC 4.37 m/uL (3.80-5.40); RDW 15.2 % (11.5-15.5); WBC 8.5 k/uL (3.8-10.6)
[2017-11-19 23:14] LABS: Appearance,Urine Clear (Clear); Bilirubin,Urine Negative (Negative); Blood,Urine Negative (Negative); Color,Urine Light Yellow; Glucose,Urine (UA) Negative (Negative); Ketones,Urine Negative (Negative); Leukocyte Esterase,Urine Moderate (Negative); Mucus,Urine Rare /hpf; Nitrite,Urine Negative (Negative); Protein,Urine Negative (Negative); RBC,Urine 1 /hpf (0-5); Specific Gravity,Urine 1.013 (1.001-1.035); Squamous Epithelial Cell,Urine 2 /hpf (0-4); Urobilinogen,Urine <2.0 mg/dL (<2.0); WBC,Urine 2 /hpf (0-5)
[2017-11-19 23:20] LABS: ALT 18 U/L (9-52); AST 20 U/L (14-36); Albumin 3.9 g/dL (3.5-5.0); Alkaline Phosphatase 61 U/L (38-126); Amylase 82 U/L (30-110); Anion Gap 13 mmol/L; Blood Urea Nitrogen 11 mg/dL (7-17); Calcium 9.2 mg/dL (8.4-10.2); Carbon Dioxide 21 mmol/L (22-30); Chloride 108 mmol/L (98-107); Glucose 89 mg/dL (74-99); Lipase 167 U/L (23-300); Potassium 4.4 mmol/L (3.5-5.1); Sodium 142 mmol/L (137-145); Total Bilirubin 0.2 mg/dL (0.2-1.3); Total Protein 7.4 g/dL (6.3-8.2)
[2017-11-19 23:41] LABS: Prothrombin Time 9.6 sec (9.0-12.0)
[2017-11-19 23:42] LABS: Partial Thromboplastin Time 21.6 sec (22.0-30.0)
--- NOTE | 2017-11-20 | CT ---
EXAMINATION TYPE: CT abdomen pelvis w con DATE OF EXAM: 11/19/2017 COMPARISON: 06/05/2017 HISTORY: Prior on synapse, abd pain, hx of Crohn's, IBS and colitis, and bowel resection x2, IV only CT DLP: 428.90 mGycm Automated exposure control for dose reduction was used. TECHNIQUE: Helical acquisition of images was performed from the lung bases through the pelvis. CONTRAST: Performed without Oral Contrast and with IV Contrast, patient injected with 100 mL of Isovue 300. FINDINGS: Lung bases are clear. There is no pleural effusion. There is no pericardial effusion. Liver spleen pancreas gallbladder appear normal. Bile ducts are not dilated. There is no adrenal mass . Kidneys show satisfactory contrast opacification. There is no hydronephrosis. There is no retroperi toneal adenopathy. There is no ascites. There are numerous surgical clips in the right lower quadrant with apparent resection of the right colon. There is no free fluid in the pelvis. Bladder distends s moothly. Uterus is tilted to the left side. I see no pelvic mass. I see no bony destructive process. IMPRESSION: THERE IS RIGHT SIDE ABDOMINAL SURGERY WITH RESECTION OF THE RIGHT COLON AND ILEOCOLIC ANASTOMOSIS. TH ERE IS CLEARING OF THE INFLAMMATORY CHANGES IN THE RIGHT MID ABDOMEN COMPARED TO OLD CT SCAN OF 06/05. NO EVIDENCE OF A BOWEL OBSTRUCTION. NO FREE AIR OR FLUID.
[2017-11-20 00:34] VITALS: BP 102/58; PULSE 75; TEMP 97.9
== END 2017-11-20 00:34 | disposition home or self-care (01) ==
LOC: EC 22:09
DX: R10.13 Epigastric pain (principal); R10.32 Left lower quadrant pain; R11.0 Nausea; R19.7 Diarrhea, unspecified; Z86.14 Personal history of Methicillin resistant Staphylococcus aureus infection; Z90.49 Acquired absence of other specified parts of digestive tract; Z88.0 Allergy status to penicillin; Z88.1 Allergy status to other antibiotic agents; Z88.8 Allergy status to other drugs, medicaments and biological substances; Z79.3 Long term (current) use of hormonal contraceptives; Z79.899 Other long term (current) drug therapy
CPT/HCPCS: 99284; 96374; 96375 ×2; 96361 ×2; 36415; 80053; 82150; 83690; 85025; 85610; 85730; 81001; 81025; 74177; J2765; C9113; Q9967; J2270

== ENCOUNTER 2017-12-21 11:51 | Emergency (ER) | payer OTHER ==
[2017-12-21 12:13] VITALS: TEMP 97.6
[2017-12-21] MEDS ORDERED: SODIUM CHLORIDE 0.9% 1,000 ML IV STA (12:54)
[2017-12-21] MEDS ORDERED: MORPHINE SULFATE 4 MG/0.8 ML SYRINGE (INJ) IVP STA (12:54)
[2017-12-21] MEDS ORDERED: ONDANSETRON 4 MG/2 ML VIAL IVP STA (12:54)
[2017-12-21 13:11] LABS: Basophils % (A) 0 %; Eosinophils # (A) 0.1 k/uL (0-0.7); Eosinophils % (A) 2 %; HCT 37.5 % (34.0-46.0); Lymphocytes # (A) 2.1 k/uL (1.0-4.8); Lymphocytes % (A) 43 %; MCH 27.7 pg (25.0-35.0); MCV 86.4 fL (80.0-100.0); Mean Platelet Volume 7.5; Monocytes # (A) 0.2 k/uL (0-1.0); Monocytes % (A) 5 %; Neutrophils # (A) 2.5 k/uL (1.3-7.7); Neutrophils % (A) 49 %; Platelet Count 231 k/uL (150-450); RBC 4.34 m/uL (3.80-5.40); RDW 13.7 % (11.5-15.5)
[2017-12-21 13:22] VITALS: RESP 16
[2017-12-21 13:22] LABS: ALT 17 U/L (9-52); AST 21 U/L (14-36); Albumin 3.9 g/dL (3.5-5.0); Alkaline Phosphatase 59 U/L (38-126); Amylase 65 U/L (30-110); Anion Gap 17 mmol/L; Blood Urea Nitrogen 10 mg/dL (7-17); Calcium 8.6 mg/dL (8.4-10.2); Carbon Dioxide 19 mmol/L (22-30); Chloride 112 mmol/L (98-107); Glucose 87 mg/dL (74-99); Lipase 63 U/L (23-300); Potassium 4.4 mmol/L (3.5-5.1); Sodium 148 mmol/L (137-145); Total Bilirubin 0.3 mg/dL (0.2-1.3); Total Protein 7.1 g/dL (6.3-8.2)
[2017-12-21 13:27] LABS: Bacteria,Urine Rare /hpf; Mucus,Urine Few /hpf; Squamous Epithelial Cell,Urine 5 /hpf (0-4); WBC,Urine 2 /hpf (0-5)
[2017-12-21 13:58] LABS: Bilirubin,Urine Negative (Negative); Blood,Urine Negative (Negative); Glucose,Urine (UA) Negative (Negative); Ketones,Urine Negative (Negative); Nitrite,Urine Negative (Negative); Urobilinogen,Urine <2.0 mg/dL (<2.0)
--- NOTE | 2017-12-21 13:58 | XR ---
EXAMINATION TYPE: XR KUB , 2 VIEWS DATE OF EXAM ORDERED: 12/21/2017 HISTORY: abdominal pain. COMPARISON: Previous study dated 05/23/2015. FINDINGS: Lung bases are clear. The abdominal gas pattern is normal. There is no evidence of obstruction or free air. No unusual calc ifications are seen. IMPRESSION: NORMAL ABDOMEN.
[2017-12-21 14:07] LABS: Color,Urine Yellow
[2017-12-21 14:08] LABS: Appearance,Urine Cloudy (Clear)
[2017-12-21 14:12] LABS: Leukocyte Esterase,Urine Trace (Negative); PH, Urine 5.5 (5.0-8.0); Protein,Urine Trace (Negative); Specific Gravity,Urine 1.023 (1.001-1.035)
[2017-12-21] MEDS ORDERED: DICYCLOMINE 10 MG/ML 2 ML AMP IM STA (14:14)
--- NOTE | 2017-12-21 14:14 | ED ---
Nausea/Vomiting/Diarrhea HPI - General Chief complaint: Nausea/Vomiting/Diarrhea Stated complaint: Crohn's flare Time Seen by Provider: 12/21/17 12:43 Source: patient Mode of arrival: ambulatory Limitations: no limitations - History of Present Illness Initial comments: 22-year-old female patient with past medical history significant for Crohn's colitis presented to the emergency department today for evaluation of increased abdominal pain and vomiting. Patient states that she has been having increased abdominal pain over the last month. Pain has worsened significantly over the last week. She describes the pain as sharp in nature and located mostly in the left lower quadrant. Patient states that she is unable to stop vomiting today. Unable to keep down any food or fluids. Patient denies any fever or chills. She states that she has been having diarrhea but denies any hematochezia or melena. She denies any hematuria, dysuria, urinary frequency, urinary urgency. She denies any chance of . Patient is currently taking 5 mg of prednisone daily. Patient denies any recent rash, shortness breath, chest pain, back pain, numbness, tingling, dizziness, weakness, headache, visual changes, or any other complaints. - Related Data Home Medications Medication Instructions Recorded Confirmed Loratadine [Claritin] 10 mg PO DAILY 03/14/17 12/21/17 Dicyclomine [Bentyl] 10 mg PO BID 06/05/17 12/21/17 Lurasidone HCl [Latuda] 60 mg PO HS 06/05/17 12/21/17 Mirtazapine [Remeron] 15 mg PO HS 11/19/17 12/21/17 Omeprazole 40 mg PO DAILY 11/19/17 12/21/17 predniSONE 5 mg PO DAILY 12/12/17 12/21/17 Previous Rx's Medication Instructions Recorded HYDROcodone/APAP 5-325MG [[place] 1 - 2 tab PO Q6HR PRN #12 tab 12/12/17 5-325] Sulfamethox-Tmp 800-160Mg [Bactrim 1 tab PO Q12HR 5 Days #10 tab 12/12/17 DS 800-160 mg] Ondansetron [Zofran ODT] 4 mg PO Q8HR PRN #10 tab 12/21/17 predniSONE 50 mg PO DAILY #5 tablet 12/21/17 Allergies Allergy/AdvReac Type Severity Reaction Status Date / Time adalimumab [From Humira] Allergy RASH/NAUSEA/VOMITING/JOINT Verified 12/21/17 12:12 PAIN amoxicillin trihydrate Allergy Rash/Hives Verified 12/21/17 12:12 [From Augmentin] potassium clavulanate Allergy Rash/Hives Verified 12/21/17 12:12 [From Augmentin] Review of Systems ROS Statement: Those systems with pertinent positive or pertinent negative responses have been documented in the HPI. ROS Other: All systems not noted in ROS Statement are negative. Past Medical History Past Medical History: No Reported History Additional Past Medical History / Comment(s): crohns, IBD, colitis History of Any Multi-Drug Resistant Organisms: MRSA Date of last positivie culture/infection: 2002 MDRO Source:: Hip Past Surgical History: No Surgical Hx Reported Additional Past Surgical History / Comment(s): wisdom teeth, bowel resection x 2 , sepsis Past Psychological History: Anxiety, Depression Smoking Status: Never smoker Past Alcohol Use History: None Reported Past Drug Use History: None Reported General Exam Limitations: no limitations General appearance: alert, other (This is a well-developed, well-nourished adult female patient in mild distress related to pain. Vital signs upon presentation are temperature 97.6F, pulse 101, respirations 18, blood pressure 108/74, pulse ox 98% on room air.) Eye exam: Present: normal appearance, PERRL, EOMI. Absent: scleral icterus, conjunctival injection, periorbital swelling ENT exam: Present: normal exam, normal oropharynx, mucous membranes moist Respiratory exam: Present: normal lung sounds bilaterally. Absent: respiratory distress, wheezes, rales, rhonchi, stridor Cardiovascular Exam: Present: regular rate, normal rhythm, normal heart sounds. Absent: systolic murmur, diastolic murmur, rubs, gallop, clicks GI/Abdominal exam: Present: soft, tenderness (Mild left lower quadrant tenderness), normal bowel sounds. Absent: distended, guarding, rebound, rigid Neurological exam: Present: alert, oriented X3, CN II-XII intact Psychiatric exam: Present: normal affect, normal mood Skin exam: Present: warm, dry, intact, normal color. Absent: rash Course Vital Signs 12/21/17 12/21/17 12/21/17 12:10 13:21 14:34 Temperature 97.6 F Pulse Rate 101 H 84 86 Respiratory 18 16 16 Rate Blood Pressure 108/74 101/69 82/47 O2 Sat by Pulse 98 97 99 Oximetry Medical Decision Making - Medical Decision Making 22-year-old female patient was in to to the emergency department today for evaluation of increased abdominal pain, she has a history of Crohn's colitis. States her symptoms are consistent with her usual flareups. She is having pain mostly in left lower quadrant. Physical examination did reveal some mild left lower quadrant tenderness. Labs reviewed and white blood cell count is normal. Sodium is 148, chloride 112. Urinalysis showed cloudy urine appearance, trace protein, trace leukocyte esterase, 5 squamous epithelial cells, rare bacteria, few mucus, negative hCG. She is currently being treated with Bactrim. Urinary tract infection. Patient is feeling better after receiving fluids and medications here in the department. We will give her a burst of steroids 50 mg daily for the next 5 days. She is urged to continue taking her Bentyl. She is also given Zofran. She is instructed to follow-up with her GI specialist for recheck in 1-2 days patient is instructed to return here immediately for any new, worsening, or concerning symptoms. She verbalizes understanding and agrees with this plan. - Lab Data Result diagrams: 12/21/17 12:46 12/21/17 12:46 Lab Results 12/21/17 12/21/17 12/21/17 Range/Units 12:46 12:46 13:18 WBC 5.0 (3.8-10.6) k/uL RBC 4.34 (3.80-5.40) m/uL Hgb 12.0 (11.4-16.0) gm/dL Hct 37.5 (34.0-46.0) % MCV 86.4 (80.0-100.0) fL MCH 27.7 (25.0-35.0) pg MCHC 32.0 (31.0-37.0) g/dL RDW 13.7 (11.5-15.5) % Plt Count 231 (150-450) k/uL Neutrophils % 49 % Lymphocytes % 43 % Monocytes % 5 % Eosinophils % 2 % Basophils % 0 % Neutrophils # 2.5 (1.3-7.7) k/uL Lymphocytes # 2.1 (1.0-4.8) k/uL Monocytes # 0.2 (0-1.0) k/uL Eosinophils # 0.1 (0-0.7) k/uL Basophils # 0.0 (0-0.2) k/uL Sodium 148 H (137-145) mmol/L Potassium 4.4 (3.5-5.1) mmol/L Chloride 112 H (98-107) mmol/L Carbon Dioxide 19 L (22-30) mmol/L Anion Gap 17 mmol/L BUN 10 (7-17) mg/dL Creatinine 0.61 (0.52-1.04) mg/dL Est GFR (CKD-EPI)AfAm >90 (>60 ml/min/1.73 sqM) Est GFR (CKD-EPI)NonAf >90 (>60 ml/min/1.73 sqM) Glucose 87 (74-99) mg/dL Calcium 8.6 (8.4-10.2) mg/dL Total Bilirubin 0.3 (0.2-1.3) mg/dL AST 21 (14-36) U/L ALT 17 (9-52) U/L Alkaline Phosphatase 59 (38-126) U/L Total Protein 7.1 (6.3-8.2) g/dL Albumin 3.9 (3.5-5.0) g/dL Amylase 65 (30-110) U/L Lipase 63 (23-300) U/L Urine Color Urine Appearance (Clear) Urine pH (5.0-8.0) Ur Specific [place] (1.001-1.035) Urine Protein (Negative) Urine Glucose (UA) (Negative) Urine Ketones (Negative) Urine Blood (Negative) Urine Nitrite (Negative) Urine Bilirubin (Negative) Urine Urobilinogen (<2.0) mg/dL Ur Leukocyte Esterase (Negative) Urine WBC (0-5) /hpf Ur Squamous Epith Cells (0-4) /hpf Urine Bacteria (None) /hpf Urine Mucus (None) /hpf Urine HCG, Qual Not Detected (Not Detectd) 12/21/17 Range/Units 13:18 WBC (3.8-10.6) k/uL RBC (3.80-5.40) m/uL Hgb (11.4-16.0) gm/dL Hct (34.0-46.0) % MCV (80.0-100.0) fL MCH (25.0-35.0) pg MCHC (31.0-37.0) g/dL RDW (11.5-15.5) % Plt Count (150-450) k/uL Neutrophils % % Lymphocytes % % Monocytes % % Eosinophils % % Basophils % % Neutrophils # (1.3-7.7) k/uL Lymphocytes # (1.0-4.8) k/uL Monocytes # (0-1.0) k/uL Eosinophils # (0-0.7) k/uL Basophils # (0-0.2) k/uL Sodium (137-145) mmol/L Potassium (3.5-5.1) mmol/L Chloride (98-107) mmol/L Carbon Dioxide (22-30) mmol/L Anion Gap mmol/L BUN (7-17) mg/dL Creatinine (0.52-1.04) mg/dL Est GFR (CKD-EPI)AfAm (>60 ml/min/1.73 sqM) Est GFR (CKD-EPI)NonAf (>60 ml/min/1.73 sqM) Glucose (74-99) mg/dL Calcium (8.4-10.2) mg/dL Total Bilirubin (0.2-1.3) mg/dL AST (14-36) U/L ALT (9-52) U/L Alkaline Phosphatase (38-126) U/L Total Protein (6.3-8.2) g/dL Albumin (3.5-5.0) g/dL Amylase (30-110) U/L Lipase (23-300) U/L Urine Color Yellow Urine Appearance Cloudy H (Clear) Urine pH 5.5 (5.0-8.0) Ur Specific [place] 1.023 (1.001-1.035) Urine Protein Trace H (Negative) Urine Glucose (UA) Negative (Negative) Urine Ketones Negative (Negative) Urine Blood Negative (Negative) Urine Nitrite Negative (Negative) Urine Bilirubin Negative (Negative) Urine Urobilinogen <2.0 (<2.0) mg/dL Ur Leukocyte Esterase Trace H (Negative) Urine WBC 2 (0-5) /hpf Ur Squamous Epith Cells 5 H (0-4) /hpf Urine Bacteria Rare H (None) /hpf Urine Mucus Few H (None) /hpf Urine HCG, Qual (Not Detectd) - Radiology Data Radiology results: report reviewed, image reviewed KUB x-ray was obtained the abdominal gas pattern is normal. There is no evidence of obstruction or free air. No unusual calcifications are seen. Impression by Dr. Wynne shows normal abdomen. Disposition Clinical Impression: Exacerbation of Crohn's disease Disposition: HOME SELF-CARE Condition: Good Instructions: Crohn Disease (ED) Additional Instructions: Take medications as directed. Follow-up with her GI specialist and her primary care physician for reevaluation in 1-2 days. Return here immediately for any new, worsening, or concerning symptoms. Prescriptions: Ondansetron [Zofran ODT] 4 mg PO Q8HR PRN #10 tab PRN Reason: Nausea predniSONE 50 mg PO DAILY #5 tablet Is patient prescribed a controlled substance at d/c from ED?: No Referrals: Donavan Guzman DO [Primary Care Provider] - 1-2 days Time of Disposition: 14:14
[2017-12-21] MEDS ORDERED: methylPREDNISolone SOD SUCCI 125 MG/2 ML VIAL IV STA (14:15)
[2017-12-21 14:34] VITALS: BP 82/47; PULSE 86
== END 2017-12-21 14:52 | disposition home or self-care (01) ==
LOC: EC 11:51
DX: K50.90 Crohn's disease, unspecified, without complications (principal); F32.9 Major depressive disorder, single episode, unspecified; Z86.14 Personal history of Methicillin resistant Staphylococcus aureus infection; Z79.899 Other long term (current) drug therapy; Z79.52 Long term (current) use of systemic steroids; Z88.8 Allergy status to other drugs, medicaments and biological substances; Z88.0 Allergy status to penicillin
CPT/HCPCS: 36415; 80053; 82150; 83690; 85025; 81003; 81001; 81025; 74018; 99284; 96374; 96375 ×2; 96361; 96372; J0500; J2930; J2405; J2270

== ENCOUNTER → 2018-01-02 | Outpatient (CLI) | payer OTHER ==
[2018-01-02 13:23] VITALS: BP 109/66; PULSE 76; RESP 16; TEMP 98.6
== END | disposition home or self-care (01) ==
LOC: PROCWHC3 12:56
PROVIDERS: ATTEND Internal Medicine Infectious Disease
DX: K50.90 Crohn's disease, unspecified, without complications (principal)
CPT/HCPCS: 96523

== ENCOUNTER 2018-01-04 21:09 | Emergency (ER) | payer OTHER ==
[2018-01-04] MEDS ORDERED: SODIUM CHLORIDE 0.9% 1,000 ML IV ONE (21:58)
[2018-01-04] MEDS ORDERED: MORPHINE SULFATE 4 MG/ML SYRINGE IVP STA ×2 (21:58→23:45)
[2018-01-04] MEDS ORDERED: ONDANSETRON 4 MG/2 ML VIAL IVP STA (21:58)
--- NOTE | 2018-01-04 22:18 | ED ---
General Adult HPI - General Chief complaint: Allergic Reaction Stated complaint: med reaction Time Seen by Provider: 01/04/18 21:34 Source: patient, family Mode of arrival: ambulatory Limitations: no limitations - History of Present Illness Initial comments: 22-year-old female patient presents to the emergency department today for evaluation of right lower quadrant abdominal pain with vomiting and diarrhea. Patient has also been having low-grade fevers. States that symptoms started approximately 3 days ago after receiving an infusion of Stolera a medication for her Crohn's disease. Patient states that the pain in her right lower quadrant is the same as her usual Crohn's flareups. Patient has had two bowel resections previously and did have appendectomy as well during one of the surgeries. Patient states that she has chronic diarrhea. Patient states that she did have some hematochezia yesterday, states it was a very small amount streaking over the surface of the stool. Patient denies any cough, congestion, or sore throat. Denies any hematuria, dysuria, urinary frequency, or urinary urgency. Patient denies any recent rash, shortness breath, chest pain, back pain , numbness, tingling, dizziness, weakness, headache, visual changes, or any other complaints. - Related Data Home Medications Medication Instructions Recorded Confirmed Loratadine [Claritin] 10 mg PO DAILY 03/14/17 01/02/18 Dicyclomine [Bentyl] 10 mg PO BID 06/05/17 01/02/18 Lurasidone HCl [Latuda] 60 mg PO HS 06/05/17 01/02/18 Mirtazapine [Remeron] 15 mg PO HS 11/19/17 01/02/18 Omeprazole 40 mg PO DAILY 11/19/17 01/02/18 Ustekinumab [Stelara] 45 mg SQ 01/04/18 Previous Rx's Medication Instructions Recorded HYDROcodone/APAP 5-325MG [[place] 1 - 2 tab PO Q6HR PRN #12 tab 12/12/17 5-325] Ondansetron [Zofran ODT] 4 mg PO Q8HR PRN #10 tab 12/21/17 Hydrocodone/Acetaminophen [[place] 1 tab PO Q6HR PRN #12 tab 01/04/18 5-325] Allergies Allergy/AdvReac Type Severity Reaction Status Date / Time adalimumab [From Humira] Allergy RASH/NAUSEA/VOMITING/JOINT Verified 01/04/18 21:15 PAIN amoxicillin trihydrate Allergy Rash/Hives Verified 01/04/18 21:15 [From Augmentin] potassium clavulanate Allergy Rash/Hives Verified 01/04/18 21:15 [From Augmentin] Review of Systems ROS Statement: Those systems with pertinent positive or pertinent negative responses have been documented in the HPI. ROS Other: All systems not noted in ROS Statement are negative. Past Medical History Past Medical History: No Reported History Additional Past Medical History / Comment(s): crohns, IBD, colitis History of Any Multi-Drug Resistant Organisms: MRSA Date of last positivie culture/infection: 2002 MDRO Source:: Hip Past Surgical History: No Surgical Hx Reported Additional Past Surgical History / Comment(s): wisdom teeth, bowel resection x 2 , sepsis Past Psychological History: Anxiety, Depression Smoking Status: Never smoker Past Alcohol Use History: Occasional Past Drug Use History: None Reported General Exam Limitations: no limitations General appearance: alert, in no apparent distress, other (This is a well- developed, nourished adult female patient. Vital signs upon presentation are temperature 100.0F, pulse 91, respirations 20, blood pressure 120/78, pulse ox 98% on room air.) Eye exam: Present: normal appearance, PERRL, EOMI. Absent: scleral icterus, conjunctival injection, periorbital swelling ENT exam: Present: normal exam, normal oropharynx, mucous membranes moist Respiratory exam: Present: normal lung sounds bilaterally. Absent: respiratory distress, wheezes, rales, rhonchi, stridor Cardiovascular Exam: Present: regular rate, normal rhythm, normal heart sounds. Absent: systolic murmur, diastolic murmur, rubs, gallop, clicks GI/Abdominal exam: Present: soft, tenderness (Right lower quadrant tenderness), normal bowel sounds. Absent: distended, guarding, rebound, rigid Neurological exam: Present: alert, oriented X3, CN II-XII intact Psychiatric exam: Present: normal affect, normal mood Skin exam: Present: warm, dry, intact, normal color. Absent: rash Course Vital Signs 01/04/18 01/04/18 21:12 23:40 Temperature 100 F H 98.6 F Pulse Rate 91 72 Respiratory 20 16 Rate Blood Pressure 120/78 114/55 O2 Sat by Pulse 98 99 Oximetry Medical Decision Making - Medical Decision Making 22-year-old female patient presented to the emergency department today for evaluation of vomiting, right lower quadrant pain, and diarrhea following infusion of Stelara. Physical examination did reveal some mild right lower quadrant abdominal tenderness. Patient does have a history of Crohn's disease and states this is her usual pain location. Patient did receive IV fluids, nausea medication and pain medication here in the department. She is feeling somewhat improved. I did offer CT scanning for abdominal pain and tenderness however patient refuses at this time stating that her pain symptoms are consistent with her usual Crohn's flare. Patient also did have low-grade fever , we did perform labs which showed no elevated white blood cell count, urinalysis negative for infection. We did want to perform influenza testing however patient refused due to nasal passage issues. I we did discuss Stelara infusion as a possible cause for an increase in her symptoms. She is instructed to follow-up with the primary care physician as well as her cctv technician for further evaluation. We will provide a short course of [place] for pain management. She is advised to use these carefully. Return parameters discussed in detail. She verbalizes understanding and agrees with this plan. - Lab Data Result diagrams: 01/04/18 21:16 01/04/18 21:16 Lab Results 01/04/18 01/04/18 01/04/18 Range/Units 21:16 21:16 21:16 WBC 7.2 (3.8-10.6) k/uL RBC 4.44 (3.80-5.40) m/uL Hgb 12.6 (11.4-16.0) gm/dL Hct 38.1 (34.0-46.0) % MCV 85.9 (80.0-100.0) fL MCH 28.5 (25.0-35.0) pg MCHC 33.2 (31.0-37.0) g/dL RDW 13.0 (11.5-15.5) % Plt Count 222 (150-450) k/uL Neutrophils % 63 % Lymphocytes % 25 % Monocytes % 7 % Eosinophils % 2 % Basophils % 0 % Neutrophils # 4.6 (1.3-7.7) k/uL Lymphocytes # 1.8 (1.0-4.8) k/uL Monocytes # 0.5 (0-1.0) k/uL Eosinophils # 0.1 (0-0.7) k/uL Basophils # 0.0 (0-0.2) k/uL Sodium 144 (137-145) mmol/L Potassium 4.2 (3.5-5.1) mmol/L Chloride 108 H (98-107) mmol/L Carbon Dioxide 20 L (22-30) mmol/L Anion Gap 16 mmol/L BUN 9 (7-17) mg/dL Creatinine 0.80 (0.52-1.04) mg/dL Est GFR (CKD-EPI)AfAm >90 (>60 ml/min/1.73 sqM) Est GFR (CKD-EPI)NonAf >90 (>60 ml/min/1.73 sqM) Glucose 87 (74-99) mg/dL Plasma Lactic Acid Rehan 1.2 (0.7-2.0) mmol/L Calcium 9.4 (8.4-10.2) mg/dL Total Bilirubin 0.2 (0.2-1.3) mg/dL AST 21 (14-36) U/L ALT 27 (9-52) U/L Alkaline Phosphatase 61 (38-126) U/L Total Protein 7.6 (6.3-8.2) g/dL Albumin 4.2 (3.5-5.0) g/dL Amylase 80 (30-110) U/L Lipase 114 (23-300) U/L Urine Color Urine Appearance (Clear) Urine pH (5.0-8.0) Ur Specific [place] (1.001-1.035) Urine Protein (Negative) Urine Glucose (UA) (Negative) Urine Ketones (Negative) Urine Blood (Negative) Urine Nitrite (Negative) Urine Bilirubin (Negative) Urine Urobilinogen (<2.0) mg/dL Ur Leukocyte Esterase (Negative) Urine RBC (0-5) /hpf Urine WBC (0-5) /hpf Ur Squamous Epith Cells (0-4) /hpf Urine HCG, Qual (Not Detectd) 01/04/18 01/04/18 Range/Units 21:16 21:16 WBC (3.8-10.6) k/uL RBC (3.80-5.40) m/uL Hgb (11.4-16.0) gm/dL Hct (34.0-46.0) % MCV (80.0-100.0) fL MCH (25.0-35.0) pg MCHC (31.0-37.0) g/dL RDW (11.5-15.5) % Plt Count (150-450) k/uL Neutrophils % % Lymphocytes % % Monocytes % % Eosinophils % % Basophils % % Neutrophils # (1.3-7.7) k/uL Lymphocytes # (1.0-4.8) k/uL Monocytes # (0-1.0) k/uL Eosinophils # (0-0.7) k/uL Basophils # (0-0.2) k/uL Sodium (137-145) mmol/L Potassium (3.5-5.1) mmol/L Chloride (98-107) mmol/L Carbon Dioxide (22-30) mmol/L Anion Gap mmol/L BUN (7-17) mg/dL Creatinine (0.52-1.04) mg/dL Est GFR (CKD-EPI)AfAm (>60 ml/min/1.73 sqM) Est GFR (CKD-EPI)NonAf (>60 ml/min/1.73 sqM) Glucose (74-99) mg/dL Plasma Lactic Acid Rehan (0.7-2.0) mmol/L Calcium (8.4-10.2) mg/dL Total Bilirubin (0.2-1.3) mg/dL AST (14-36) U/L ALT (9-52) U/L Alkaline Phosphatase (38-126) U/L Total Protein (6.3-8.2) g/dL Albumin (3.5-5.0) g/dL Amylase (30-110) U/L Lipase (23-300) U/L Urine Color Light Yellow Urine Appearance Clear (Clear) Urine pH 6.0 (5.0-8.0) Ur Specific [place] 1.013 (1.001-1.035) Urine Protein Negative (Negative) Urine Glucose (UA) Negative (Negative) Urine Ketones Negative (Negative) Urine Blood Negative (Negative) Urine Nitrite Negative (Negative) Urine Bilirubin Negative (Negative) Urine Urobilinogen <2.0 (<2.0) mg/dL Ur Leukocyte Esterase Small H (Negative) Urine RBC 1 (0-5) /hpf Urine WBC 2 (0-5) /hpf Ur Squamous Epith Cells 1 (0-4) /hpf Urine HCG, Qual Not Detected (Not Detectd) - Radiology Data Radiology results: report reviewed, image reviewed Two-view x-ray of the abdomen shows bowel gas pattern is normal. No sign of intestinal obstruction or pneumoperitoneum. Fecal pattern is normal. Lung bases are clear. There are no pathologic calcifications over the kidneys. Impression by Dr. Sanford shows nonacute abdomen with no change. Disposition Clinical Impression: Crohn's colitis, Medication side effects Disposition: HOME SELF-CARE Condition: Good Instructions: Crohn Disease (ED), Acute Nausea and Vomiting (ED) Additional Instructions: Increase fluids. Follow-up with her GI specialist as soon as possible. Take medications as directed. Use opiate medication with caution. Return here immediately for any new, worsening, or concerning symptoms. Prescriptions: Hydrocodone/Acetaminophen [[place] 5-325] 1 tab PO Q6HR PRN #12 tab PRN Reason: Pain Is patient prescribed a controlled substance at d/c from ED?: Yes When asked, does pt state using other controlled substances?: No Referrals: Donavan Guzman DO [Primary Care Provider] - 1-2 days Time of Disposition: 23:46
[2018-01-04 22:37] LABS: Appearance,Urine Clear (Clear); Bilirubin,Urine Negative (Negative); Blood,Urine Negative (Negative); Color,Urine Light Yellow; Glucose,Urine (UA) Negative (Negative); Ketones,Urine Negative (Negative); Leukocyte Esterase,Urine Small (Negative); Nitrite,Urine Negative (Negative); Protein,Urine Negative (Negative); RBC,Urine 1 /hpf (0-5); Specific Gravity,Urine 1.013 (1.001-1.035); Squamous Epithelial Cell,Urine 1 /hpf (0-4); Urobilinogen,Urine <2.0 mg/dL (<2.0); WBC,Urine 2 /hpf (0-5)
[2018-01-04 22:39] LABS: Basophils % (A) 0 %; Eosinophils # (A) 0.1 k/uL (0-0.7); Eosinophils % (A) 2 %; HCT 38.1 % (34.0-46.0); HGB 12.6 gm/dL (11.4-16.0); Lymphocytes # (A) 1.8 k/uL (1.0-4.8); Lymphocytes % (A) 25 %; MCH 28.5 pg (25.0-35.0); MCHC 33.2 g/dL (31.0-37.0); MCV 85.9 fL (80.0-100.0); Monocytes # (A) 0.5 k/uL (0-1.0); Monocytes % (A) 7 %; Neutrophils # (A) 4.6 k/uL (1.3-7.7); Neutrophils % (A) 63 %; Platelet Count 222 k/uL (150-450); RBC 4.44 m/uL (3.80-5.40); WBC 7.2 k/uL (3.8-10.6)
[2018-01-04 22:42] LABS: ALT 27 U/L (9-52); AST 21 U/L (14-36); Albumin 4.2 g/dL (3.5-5.0); Alkaline Phosphatase 61 U/L (38-126); Amylase 80 U/L (30-110); Anion Gap 16 mmol/L; Blood Urea Nitrogen 9 mg/dL (7-17); Calcium 9.4 mg/dL (8.4-10.2); Carbon Dioxide 20 mmol/L (22-30); Chloride 108 mmol/L (98-107); Glucose 87 mg/dL (74-99); Lipase 114 U/L (23-300); Potassium 4.2 mmol/L (3.5-5.1); Sodium 144 mmol/L (137-145); Total Bilirubin 0.2 mg/dL (0.2-1.3); Total Protein 7.6 g/dL (6.3-8.2)
--- NOTE | 2018-01-04 23:07 | XR ---
EXAMINATION TYPE: XR KUB DATE OF EXAM: 01/04/2018 COMPARISON: 12/21/2017 HISTORY: Right lower quadrant pain TECHNIQUE: 2 views FINDINGS: Bowel gas pattern is normal. There is no sign of intestinal obstruction or pneumoperitoneum . Fecal pattern is normal. Lung bases are clear. There are no pathologic calcifications over the kidn eys. IMPRESSION: Nonacute abdomen. No change.
[2018-01-04 23:41] VITALS: BP 114/55; PULSE 72; RESP 16; TEMP 98.6
== END 2018-01-05 00:09 | disposition home or self-care (01) ==
LOC: EC 21:09
DX: K50.10 Crohn's disease of large intestine without complications (principal); T50.995A Adverse effect of other drugs, medicaments and biological substances, initial encounter; F32.9 Major depressive disorder, single episode, unspecified; Z79.899 Other long term (current) drug therapy; Z88.0 Allergy status to penicillin; Z88.8 Allergy status to other drugs, medicaments and biological substances; Z86.14 Personal history of Methicillin resistant Staphylococcus aureus infection; Z90.49 Acquired absence of other specified parts of digestive tract
CPT/HCPCS: 36415; 80053; 82150; 83605; 83690; 85025; 81001; 81025; 87040; 87086; 74018; 99284; 96374; 96375; 96376; 96361; J2270; J2405

== ENCOUNTER 2018-02-08 21:50 | Emergency (ER) | payer OTHER ==
[2018-02-08] MEDS ORDERED: HYDROmorphone 0.5 MG/0.5 ML SYRINGE IVP STA ×2 (22:40→23:50)
[2018-02-08] MEDS ORDERED: ONDANSETRON 4 MG/2 ML VIAL IVP STA (22:40)
[2018-02-08] MEDS ORDERED: methylPREDNISolone SOD SUCCI 125 MG/2 ML VIAL IV STA (22:40)
--- NOTE | 2018-02-08 22:40 | ED ---
General Adult HPI - General Chief complaint: Abdominal Pain Stated complaint: GI Bleed Time Seen by Provider: 02/08/18 22:00 Source: patient, RN notes reviewed Mode of arrival: ambulatory Limitations: no limitations - History of Present Illness Initial comments: This is a 22-year-old female who has Crohn's disease. Patient has had multiple surgeries removing part of her intestines. 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 Patient is on a immunologic and steroids at this time. Patient comes in today with significant right upper quadrant abdominal pain and epigastric abdominal pain. Patient also is having blood per rectum she 's had 5 bloody bowel movements. Patient denies any fever chills. Patient states she gets all of her treatment at which is where she like to go if she needs to be admitted today. Patient denies any nausea vomiting. - Related Data Home Medications Medication Instructions Recorded Confirmed Loratadine [Claritin] 10 mg PO DAILY 03/14/17 01/02/18 Dicyclomine [Bentyl] 10 mg PO BID 06/05/17 01/02/18 Lurasidone HCl [Latuda] 60 mg PO HS 06/05/17 01/02/18 Mirtazapine [Remeron] 15 mg PO HS 11/19/17 01/02/18 Omeprazole 40 mg PO DAILY 11/19/17 01/02/18 Ustekinumab [Stelara] 45 mg SQ 01/04/18 Previous Rx's Medication Instructions Recorded HYDROcodone/APAP 5-325MG [[place] 1 - 2 tab PO Q6HR PRN #12 tab 12/12/17 5-325] Ondansetron [Zofran ODT] 4 mg PO Q8HR PRN #10 tab 12/21/17 Hydrocodone/Acetaminophen [[place] 1 tab PO Q6HR PRN #12 tab 01/04/18 5-325] Allergies Allergy/AdvReac Type Severity Reaction Status Date / Time adalimumab [From Humira] Allergy RASH/NAUSEA/VOMITING/JOINT Verified 02/08/18 22:01 PAIN amoxicillin trihydrate Allergy Rash/Hives Verified 02/08/18 22:01 [From Augmentin] potassium clavulanate Allergy Rash/Hives Verified 02/08/18 22:01 [From Augmentin] Review of Systems ROS Statement: Those systems with pertinent positive or pertinent negative responses have been documented in the HPI. ROS Other: All systems not noted in ROS Statement are negative. Past Medical History Past Medical History: No Reported History Additional Past Medical History / Comment(s): crohns, IBD, colitis History of Any Multi-Drug Resistant Organisms: MRSA Date of last positivie culture/infection: 2002 MDRO Source:: Hip Past Surgical History: Bowel Resection Additional Past Surgical History / Comment(s): wisdom teeth, bowel resection x 2 , sepsis Past Psychological History: Anxiety, Depression Smoking Status: Never smoker Past Alcohol Use History: Occasional Past Drug Use History: None Reported General Exam - General Exam Comments Initial Comments: GENERAL: Patient is well-developed and well-nourished. Patient is nontoxic and well- hydrated and is in moderate distress. ENT: Neck is soft and supple. No significant lymphadenopathy is noted. Oropharynx is clear. Moist mucous membranes. Neck has full range of motion without eliciting any pain. EYES: The sclera were anicteric and conjunctiva were pink and moist. Extraocular movements were intact and pupils were equal round and reactive to light. Eyelids were unremarkable. PULMONARY: Unlabored respirations. Good breath sounds bilaterally. No audible rales rhonchi or wheezing was noted. CARDIOVASCULAR: There is a regular rate and rhythm without any murmurs gallops or rubs. ABDOMEN: Abdomen is tender in the right upper and epigastric area.. No palpable organomegaly was noted. There is no palpable pulsatile mass. SKIN: Skin is clear with no lesions or rashes and otherwise unremarkable. NEUROLOGIC: Patient is alert and oriented x3. Cranial nerves II through XII are grossly intact. Motor and sensory are also intact. Normal speech, volume and content. Symmetrical smile. MUSCULOSKELETAL: Normal extremities with adequate strength and full range of motion. No lower extremity swelling or edema. No calf tenderness. LYMPHATICS: No significant lymphadenopathy is noted PSYCHIATRIC: Normal psychiatric evaluation. Normal interpersonal interactions appears functionally intact in deals appropriately with others. No signs of depression. No signs of anxiety. Limitations: no limitations Course Vital Signs 02/08/18 02/08/18 02/08/18 21:59 22:58 23:49 Temperature 98.7 F Pulse Rate 94 97 78 Respiratory 20 17 18 Rate Blood Pressure 127/83 109/59 101/64 O2 Sat by Pulse 99 97 98 Oximetry Medical Decision Making - Medical Decision Making KUB shows no acute abnormality. Patient continues to have some bloody bowel movement. After the pain medication patient felt a little bit better. I spoke with Soto Ferreira in a Dr. Galeas he agreed to accept the patient. - Lab Data Result diagrams: 02/08/18 22:41 02/08/18 22:41 Lab Results 02/08/18 02/08/18 02/08/18 Range/Units 22:41 22:41 22:41 WBC 14.4 H (3.8-10.6) k/uL RBC 4.05 (3.80-5.40) m/uL Hgb 11.2 L (11.4-16.0) gm/dL Hct 34.7 (34.0-46.0) % MCV 85.7 (80.0-100.0) fL MCH 27.8 (25.0-35.0) pg MCHC 32.4 (31.0-37.0) g/dL RDW 14.5 (11.5-15.5) % Plt Count 290 (150-450) k/uL Neutrophils % 56 % Lymphocytes % 35 % Monocytes % 6 % Eosinophils % 1 % Basophils % 0 % Neutrophils # 8.1 H (1.3-7.7) k/uL Lymphocytes # 5.0 H (1.0-4.8) k/uL Monocytes # 0.9 (0-1.0) k/uL Eosinophils # 0.1 (0-0.7) k/uL Basophils # 0.0 (0-0.2) k/uL Manual Slide Review Performed PT (9.0-12.0) sec INR (<1.2) APTT (22.0-30.0) sec Sodium 139 (137-145) mmol/L Potassium 4.0 (3.5-5.1) mmol/L Chloride 105 (98-107) mmol/L Carbon Dioxide 22 (22-30) mmol/L Anion Gap 12 mmol/L BUN 14 (7-17) mg/dL Creatinine 0.70 (0.52-1.04) mg/dL Est GFR (CKD-EPI)AfAm >90 (>60 ml/min/1.73 sqM) Est GFR (CKD-EPI)NonAf >90 (>60 ml/min/1.73 sqM) Glucose 89 (74-99) mg/dL Calcium 8.8 (8.4-10.2) mg/dL Total Bilirubin 0.1 L (0.2-1.3) mg/dL AST 16 (14-36) U/L ALT 31 (9-52) U/L Alkaline Phosphatase 55 (38-126) U/L Total Protein 6.5 (6.3-8.2) g/dL Albumin 3.6 (3.5-5.0) g/dL Amylase 65 (30-110) U/L Lipase 67 (23-300) U/L Urine Color Urine Appearance (Clear) Urine pH (5.0-8.0) Ur Specific [place] (1.001-1.035) Urine Protein (Negative) Urine Glucose (UA) (Negative) Urine Ketones (Negative) Urine Blood (Negative) Urine Nitrite (Negative) Urine Bilirubin (Negative) Urine Urobilinogen (<2.0) mg/dL Ur Leukocyte Esterase (Negative) Urine RBC (0-5) /hpf Urine WBC (0-5) /hpf Ur Squamous Epith Cells (0-4) /hpf Urine Mucus (None) /hpf Stool Occult Blood Positive H (Negative) 02/08/18 02/08/18 Range/Units 22:41 23:10 WBC (3.8-10.6) k/uL RBC (3.80-5.40) m/uL Hgb (11.4-16.0) gm/dL Hct (34.0-46.0) % MCV (80.0-100.0) fL MCH (25.0-35.0) pg MCHC (31.0-37.0) g/dL RDW (11.5-15.5) % Plt Count (150-450) k/uL Neutrophils % % Lymphocytes % % Monocytes % % Eosinophils % % Basophils % % Neutrophils # (1.3-7.7) k/uL Lymphocytes # (1.0-4.8) k/uL Monocytes # (0-1.0) k/uL Eosinophils # (0-0.7) k/uL Basophils # (0-0.2) k/uL Manual Slide Review PT 9.8 (9.0-12.0) sec INR 1.0 (<1.2) APTT 21.6 L (22.0-30.0) sec Sodium (137-145) mmol/L Potassium (3.5-5.1) mmol/L Chloride (98-107) mmol/L Carbon Dioxide (22-30) mmol/L Anion Gap mmol/L BUN (7-17) mg/dL Creatinine (0.52-1.04) mg/dL Est GFR (CKD-EPI)AfAm (>60 ml/min/1.73 sqM) Est GFR (CKD-EPI)NonAf (>60 ml/min/1.73 sqM) Glucose (74-99) mg/dL Calcium (8.4-10.2) mg/dL Total Bilirubin (0.2-1.3) mg/dL AST (14-36) U/L ALT (9-52) U/L Alkaline Phosphatase (38-126) U/L Total Protein (6.3-8.2) g/dL Albumin (3.5-5.0) g/dL Amylase (30-110) U/L Lipase (23-300) U/L Urine Color Yellow Urine Appearance Clear (Clear) Urine pH 6.5 (5.0-8.0) Ur Specific [place] 1.019 (1.001-1.035) Urine Protein Negative (Negative) Urine Glucose (UA) Negative (Negative) Urine Ketones Negative (Negative) Urine Blood Negative (Negative) Urine Nitrite Negative (Negative) Urine Bilirubin Negative (Negative) Urine Urobilinogen <2.0 (<2.0) mg/dL Ur Leukocyte Esterase Moderate H (Negative) Urine RBC <1 (0-5) /hpf Urine WBC 6 H (0-5) /hpf Ur Squamous Epith Cells 1 (0-4) /hpf Urine Mucus Rare H (None) /hpf Stool Occult Blood (Negative) Disposition Clinical Impression: Exacerbation of Crohn's disease, Rectal bleeding Disposition: OTHER INSTITUTION NOT DEFINED Referrals: Donavan Guzman DO [Primary Care Provider] - 1-2 days Time of Disposition: 23:50 - Out of Hospital Transfer - Req. Specs Out of Hospital Transfer - Requested Specifics: Other Emergency Center ([facility])
[2018-02-08 22:53] LABS: Basophils % (A) 0 %; Eosinophils # (A) 0.1 k/uL (0-0.7); Eosinophils % (A) 1 %; HCT 34.7 % (34.0-46.0); HGB 11.2 gm/dL (11.4-16.0); Lymphocytes % (A) 35 %; MCH 27.8 pg (25.0-35.0); MCHC 32.4 g/dL (31.0-37.0); MCV 85.7 fL (80.0-100.0); Monocytes # (A) 0.9 k/uL (0-1.0); Monocytes % (A) 6 %; Neutrophils # (A) 8.1 k/uL (1.3-7.7); Neutrophils % (A) 56 %; Platelet Count 290 k/uL (150-450); RBC 4.05 m/uL (3.80-5.40); RDW 14.5 % (11.5-15.5); WBC 14.4 k/uL (3.8-10.6)
[2018-02-08 23:13] LABS: ALT 31 U/L (9-52); AST 16 U/L (14-36); Albumin 3.6 g/dL (3.5-5.0); Alkaline Phosphatase 55 U/L (38-126); Amylase 65 U/L (30-110); Anion Gap 12 mmol/L; Blood Urea Nitrogen 14 mg/dL (7-17); Calcium 8.8 mg/dL (8.4-10.2); Carbon Dioxide 22 mmol/L (22-30); Chloride 105 mmol/L (98-107); Glucose 89 mg/dL (74-99); Lipase 67 U/L (23-300); Sodium 139 mmol/L (137-145); Total Bilirubin 0.1 mg/dL (0.2-1.3); Total Protein 6.5 g/dL (6.3-8.2)
[2018-02-08 23:23] LABS: Appearance,Urine Clear (Clear); Bilirubin,Urine Negative (Negative); Blood,Urine Negative (Negative); Color,Urine Yellow; Glucose,Urine (UA) Negative (Negative); Ketones,Urine Negative (Negative); Leukocyte Esterase,Urine Moderate (Negative); Mucus,Urine Rare /hpf; Nitrite,Urine Negative (Negative); PH, Urine 6.5 (5.0-8.0); Protein,Urine Negative (Negative); RBC,Urine <1 /hpf (0-5); Specific Gravity,Urine 1.019 (1.001-1.035); Squamous Epithelial Cell,Urine 1 /hpf (0-4); Urobilinogen,Urine <2.0 mg/dL (<2.0); WBC,Urine 6 /hpf (0-5)
--- NOTE | 2018-02-08 23:27 | XR ---
EXAMINATION TYPE: XR KUB DATE OF EXAM: 02/08/2018 COMPARISON: 01/04/2018 HISTORY: Abdominal pain TECHNIQUE: 2 views FINDINGS: 2 upright views were obtained that show no sign of intestinal obstruction or pneumoperitone um. Fecal pattern is normal. There is no evidence of a mass. Lung bases are clear. There are no patho logic calcifications. IMPRESSION: Nonacute abdomen. No change.
[2018-02-08 23:28] LABS: Prothrombin Time 9.8 sec (9.0-12.0)
[2018-02-08 23:31] LABS: Partial Thromboplastin Time 21.6 sec (22.0-30.0)
[2018-02-08 23:50] VITALS: RESP 18
[2018-02-09 01:07] VITALS: BP 110/65; PULSE 90; TEMP 98
== END 2018-02-09 01:08 | disposition other institution (70) ==
LOC: EC 21:50
DX: K50.911 Crohn's disease, unspecified, with rectal bleeding (principal); F41.9 Anxiety disorder, unspecified; F32.9 Major depressive disorder, single episode, unspecified; Z86.14 Personal history of Methicillin resistant Staphylococcus aureus infection; Z87.19 Personal history of other diseases of the digestive system; Z79.899 Other long term (current) drug therapy; Z88.0 Allergy status to penicillin; Z88.8 Allergy status to other drugs, medicaments and biological substances
CPT/HCPCS: 36415; 80053; 82150; 83690; 85025; 85610; 85730; 82272; 81001; 74018; 99285; 96374; 96375 ×2; 96376; J2930; J2405; J1170

== ENCOUNTER 2018-03-10 18:15 | Emergency (ER) | payer OTHER ==
[2018-03-10 19:35] VITALS: BP 111/68; PULSE 91; RESP 20; TEMP 99.3
[2018-03-10 21:43] LABS: Appearance,Urine Cloudy (Clear); Bilirubin,Urine Negative (Negative); Blood,Urine Negative (Negative); Color,Urine Light Yellow; Glucose,Urine (UA) Negative (Negative); Ketones,Urine Negative (Negative); Leukocyte Esterase,Urine Large (Negative); Mucus,Urine Rare /hpf; Nitrite,Urine Negative (Negative); Protein,Urine Negative (Negative); RBC,Urine 7 /hpf (0-5); Specific Gravity,Urine 1.012 (1.001-1.035); Squamous Epithelial Cell,Urine 3 /hpf (0-4); Urobilinogen,Urine <2.0 mg/dL (<2.0); WBC,Urine 79 /hpf (0-5)
[2018-03-10] MEDS ORDERED: SODIUM CHLORIDE 0.9% 1,000 ML IV STA (21:48)
[2018-03-10] MEDS ORDERED: ONDANSETRON 4 MG/2 ML VIAL IVP STA (21:48)
[2018-03-10] MEDS ORDERED: MORPHINE SULFATE 4 MG/ML SYRINGE IVP STA (21:48)
[2018-03-10 22:03] LABS: Basophils % (A) 0 %; Eosinophils # (A) 0.1 k/uL (0-0.7); Eosinophils % (A) 1 %; HGB 12.4 gm/dL (11.4-16.0); Lymphocytes # (A) 2.1 k/uL (1.0-4.8); Lymphocytes % (A) 24 %; MCH 28.6 pg (25.0-35.0); MCHC 31.9 g/dL (31.0-37.0); MCV 89.4 fL (80.0-100.0); Mean Platelet Volume 7.1; Monocytes # (A) 0.5 k/uL (0-1.0); Monocytes % (A) 6 %; Neutrophils # (A) 5.8 k/uL (1.3-7.7); Neutrophils % (A) 66 %; Platelet Count 233 k/uL (150-450); RBC 4.36 m/uL (3.80-5.40); RDW 15.7 % (11.5-15.5); WBC 8.8 k/uL (3.8-10.6)
--- NOTE | 2018-03-10 22:15 | ED ---
General Adult HPI - General Chief complaint: Abdominal Pain Stated complaint: Abd Pain Time Seen by Provider: 03/10/18 21:18 Source: patient, RN notes reviewed Mode of arrival: ambulatory Limitations: no limitations - History of Present Illness Initial comments: 22-year-old female since to the emergency department for a chief complaint of left lower quadrant pain 3 months. Patient states the pain has been on and off. Patient states today the pain worsened in the past 3 days. - Related Data Home Medications Medication Instructions Recorded Confirmed Loratadine [Claritin] 10 mg PO HS 03/14/17 03/10/18 Dicyclomine [Bentyl] 10 mg PO HS 06/05/17 03/10/18 Lurasidone HCl [Latuda] 60 mg PO HS 06/05/17 03/10/18 Mirtazapine [Remeron] 15 mg PO HS 11/19/17 03/10/18 Omeprazole 40 mg PO HS 11/19/17 03/10/18 Ustekinumab [Stelara] 45 mg SQ Q56D 01/04/18 03/10/18 HYDROcodone/APAP 10-325MG [[place] 1 tab PO HS PRN 03/10/18 03/10/18 10-325] Medroxyprogesterone Acetate 150 mg IM Q90D 03/10/18 03/10/18 [Depo-Provera] Previous Rx's Medication Instructions Recorded Ondansetron [Zofran ODT] 4 mg PO Q8HR PRN #10 tab 12/21/17 Allergies Allergy/AdvReac Type Severity Reaction Status Date / Time adalimumab [From Humira] Allergy RASH/NAUSEA/VOMITING/JOINT Verified 03/10/18 19:25 PAIN amoxicillin trihydrate Allergy Rash/Hives Verified 03/10/18 19:25 [From Augmentin] potassium clavulanate Allergy Rash/Hives Verified 03/10/18 19:25 [From Augmentin] Review of Systems ROS Statement: Those systems with pertinent positive or pertinent negative responses have been documented in the HPI. ROS Other: All systems not noted in ROS Statement are negative. Past Medical History Past Medical History: No Reported History Additional Past Medical History / Comment(s): crohns, IBD, colitis History of Any Multi-Drug Resistant Organisms: MRSA Date of last positivie culture/infection: 2002 MDRO Source:: Hip Past Surgical History: Bowel Resection Additional Past Surgical History / Comment(s): wisdom teeth, bowel resection x 2 , sepsis Past Psychological History: Anxiety, Depression Smoking Status: Never smoker Past Alcohol Use History: Occasional Past Drug Use History: None Reported General Exam Limitations: no limitations Course Vital Signs 03/10/18 03/10/18 18:21 19:33 Temperature 99.8 F H 99.3 F Pulse Rate 105 H 91 Respiratory 18 20 Rate Blood Pressure 109/74 111/68 O2 Sat by Pulse 96 98 Oximetry Medical Decision Making - Medical Decision Making Chart was completed on paper due to down time - Lab Data Result diagrams: 03/10/18 21:20 03/10/18 21:19 Lab Results 03/10/18 03/10/18 03/10/18 Range/Units 21:05 21:05 21:19 WBC (3.8-10.6) k/uL RBC (3.80-5.40) m/uL Hgb (11.4-16.0) gm/dL Hct (34.0-46.0) % MCV (80.0-100.0) fL MCH (25.0-35.0) pg MCHC (31.0-37.0) g/dL RDW (11.5-15.5) % Plt Count (150-450) k/uL Neutrophils % % Lymphocytes % % Monocytes % % Eosinophils % % Basophils % % Neutrophils # (1.3-7.7) k/uL Lymphocytes # (1.0-4.8) k/uL Monocytes # (0-1.0) k/uL Eosinophils # (0-0.7) k/uL Basophils # (0-0.2) k/uL Sodium 138 (137-145) mmol/L Potassium 4.2 (3.5-5.1) mmol/L Chloride 106 (98-107) mmol/L Carbon Dioxide 23 (22-30) mmol/L Anion Gap 9 mmol/L BUN 12 (7-17) mg/dL Creatinine 0.68 (0.52-1.04) mg/dL Est GFR (CKD-EPI)AfAm >90 (>60 ml/min/1.73 sqM) Est GFR (CKD-EPI)NonAf >90 (>60 ml/min/1.73 sqM) Glucose 82 (74-99) mg/dL Calcium 8.9 (8.4-10.2) mg/dL Total Bilirubin 0.1 L (0.2-1.3) mg/dL AST 18 (14-36) U/L ALT 34 (9-52) U/L Alkaline Phosphatase 57 (38-126) U/L Total Protein 6.5 (6.3-8.2) g/dL Albumin 3.7 (3.5-5.0) g/dL Amylase 69 (30-110) U/L Lipase 109 (23-300) U/L Urine Color Light Yellow Urine Appearance Cloudy H (Clear) Urine pH 7.0 (5.0-8.0) Ur Specific [place] 1.012 (1.001-1.035) Urine Protein Negative (Negative) Urine Glucose (UA) Negative (Negative) Urine Ketones Negative (Negative) Urine Blood Negative (Negative) Urine Nitrite Negative (Negative) Urine Bilirubin Negative (Negative) Urine Urobilinogen <2.0 (<2.0) mg/dL Ur Leukocyte Esterase Large H (Negative) Urine RBC 7 H (0-5) /hpf Urine WBC 79 H (0-5) /hpf Ur Squamous Epith Cells 3 (0-4) /hpf Urine Mucus Rare H (None) /hpf Urine HCG, Qual Not Detected (Not Detectd) 03/10/18 Range/Units 21:20 WBC 8.8 (3.8-10.6) k/uL RBC 4.36 (3.80-5.40) m/uL Hgb 12.4 (11.4-16.0) gm/dL Hct 39.0 (34.0-46.0) % MCV 89.4 (80.0-100.0) fL MCH 28.6 (25.0-35.0) pg MCHC 31.9 (31.0-37.0) g/dL RDW 15.7 H (11.5-15.5) % Plt Count 233 (150-450) k/uL Neutrophils % 66 % Lymphocytes % 24 % Monocytes % 6 % Eosinophils % 1 % Basophils % 0 % Neutrophils # 5.8 (1.3-7.7) k/uL Lymphocytes # 2.1 (1.0-4.8) k/uL Monocytes # 0.5 (0-1.0) k/uL Eosinophils # 0.1 (0-0.7) k/uL Basophils # 0.0 (0-0.2) k/uL Sodium (137-145) mmol/L Potassium (3.5-5.1) mmol/L Chloride (98-107) mmol/L Carbon Dioxide (22-30) mmol/L Anion Gap mmol/L BUN (7-17) mg/dL Creatinine (0.52-1.04) mg/dL Est GFR (CKD-EPI)AfAm (>60 ml/min/1.73 sqM) Est GFR (CKD-EPI)NonAf (>60 ml/min/1.73 sqM) Glucose (74-99) mg/dL Calcium (8.4-10.2) mg/dL Total Bilirubin (0.2-1.3) mg/dL AST (14-36) U/L ALT (9-52) U/L Alkaline Phosphatase (38-126) U/L Total Protein (6.3-8.2) g/dL Albumin (3.5-5.0) g/dL Amylase (30-110) U/L Lipase (23-300) U/L Urine Color Urine Appearance (Clear) Urine pH (5.0-8.0) Ur Specific [place] (1.001-1.035) Urine Protein (Negative) Urine Glucose (UA) (Negative) Urine Ketones (Negative) Urine Blood (Negative) Urine Nitrite (Negative) Urine Bilirubin (Negative) Urine Urobilinogen (<2.0) mg/dL Ur Leukocyte Esterase (Negative) Urine RBC (0-5) /hpf Urine WBC (0-5) /hpf Ur Squamous Epith Cells (0-4) /hpf Urine Mucus (None) /hpf Urine HCG, Qual (Not Detectd) Disposition Clinical Impression: Urinary tract infection, Abdominal pain Disposition: HOME SELF-CARE Condition: Poor Is patient prescribed a controlled substance at d/c from ED?: No Referrals: Donavan Guzman DO [Primary Care Provider] - 1-2 days Time of Disposition: 17:18
[2018-03-10 22:17] LABS: ALT 34 U/L (9-52); AST 18 U/L (14-36); Albumin 3.7 g/dL (3.5-5.0); Alkaline Phosphatase 57 U/L (38-126); Amylase 69 U/L (30-110); Anion Gap 9 mmol/L; Blood Urea Nitrogen 12 mg/dL (7-17); Calcium 8.9 mg/dL (8.4-10.2); Carbon Dioxide 23 mmol/L (22-30); Chloride 106 mmol/L (98-107); Glucose 82 mg/dL (74-99); Lipase 109 U/L (23-300); Potassium 4.2 mmol/L (3.5-5.1); Sodium 138 mmol/L (137-145); Total Bilirubin 0.1 mg/dL (0.2-1.3); Total Protein 6.5 g/dL (6.3-8.2)
--- NOTE | 2018-03-11 16:05 | CT ---
EXAM: CT Abdomen and Pelvis With Intravenous Contrast CLINICAL HISTORY: RLQ abd pain, Crohn's flare up, Mdz958/100ml, hx: bowel resection, DLP: 695.40 TECHNIQUE: Axial computed tomography images of the abdomen and pelvis with intravenous contrast. CTDI is 18.40 mGy and DLP is 695.40 mGy-cm. This CT exam was performed using one or more of the following dose reduction techniques: automated exposure control, adjustment of the mA and/or kV according to patient size, and/or use of iterative reconstruction technique. COMPARISON: CT abdomen/pelvis on 11/19/2017 FINDINGS: Liver: Hepatic steatosis. Stable mild hepatomegaly. No focal lesion. Spleen: Normal. No focal lesion. Gallbladder: Normal. No stones or biliary dilatation. Pancreas: Normal. No mass. Adrenal glands: Normal. No mass. Kidneys: Normal. No hydronephrosis or stone. No mass. Bowel: Ileal colostomy changes are again noted. No bowel obstruction. Mild prominence of the wall of the distal ileum near the anastomosis may be accentuated by underdistention, but may represent area of active inflammation in the setting of Crohn's disease. Urinary bladder: Mild prominence of the bladder wall. Reproductive organs: Normal. Muscles: No mass. Subcutaneous tissues: Diastases of the rectus abdominis muscles with mild protrusion of bowel. Postsurgical changes of the anterior abdominal wall. Peritoneal space: Normal. No free fluid. Lymph nodes: Similar mildly prominent mesenteric lymph nodes are nonspecific but may be reactive. Vessels: Normal. No aneurysm or dissection. Bones: Normal. No acute fracture or bony lesion. Lung bases: Minimal dependent atelectasis bilaterally. IMPRESSION: 1. Mild prominence of the wall of the distal ileum near the anastomosis may be accentuated by underdistention, but may represent area of active inflammation in the setting of Crohn's disease. 2. No bowel obstruction. 3. Mild nonspecific prominence of the bladder wall. Please correlate with urinalysis if concerned for cystitis.
== END 2018-03-11 01:11 | disposition home or self-care (01) ==
LOC: EC 18:15
DX: K50.90 Crohn's disease, unspecified, without complications (principal); N39.0 Urinary tract infection, site not specified; F32.9 Major depressive disorder, single episode, unspecified; F41.9 Anxiety disorder, unspecified; Z86.14 Personal history of Methicillin resistant Staphylococcus aureus infection; Z79.3 Long term (current) use of hormonal contraceptives; Z79.899 Other long term (current) drug therapy; Z88.0 Allergy status to penicillin; Z88.8 Allergy status to other drugs, medicaments and biological substances
CPT/HCPCS: 99284; 96374; 96375; 36415; 80053; 82150; 83690; 85025; 81001; 81025; 87086; 74177; J2270; J2405; Q9967

== ENCOUNTER → 2018-04-02 | Outpatient (CLI) | payer OTHER ==
[2018-04-02 11:48] VITALS: BP 106/73; PULSE 74; BMI 26.6
--- NOTE | 2018-04-02 12:26 | P.GSHP ---
History of Present Illness H&P Date: 04/02/18 Chief Complaint: patient complains of lumpy breast The patient is a 22-year-old white female who presents with a complaint of a lumpy feeling in bilateral breasts. Additionally the breasts feel tender in this is not cyclical in nature. The patient has no dominant discrete lumps in her breasts. She has no history of any trauma to her breast. She has no history of any infection in her breast. She has no history of any nipple discharge or changes of concern. The patient drinks one cup of coffee per day or if not may have a cold. The patient does not smoke however lives with her mother who does smoke. The patient does not eat chocolate. family history: 1. Mother: Cervical cancer 2. Maternal grandmother: Breast cancer stage IV menarche: 12 : none BCP: depo provera shot to regulate periods hormones: none Past surgical history: 1. Colon resection 2 for Crohn's disease Past medical history: 1. Crohn's disease with multiple prior hospital admissions, [facility] 2. IBD Medications: 1. steriods 2. antidepressants 3. clariton Social history: Smoking: Negative Alcohol: Occasional Drugs: Negative - Constitutional Constitutional: Reports sweats - EENT Eyes: denies blurred vision, denies pain Ears: deny: tinnitus Ears, nose, mouth and throat: Reports headache, Denies sore throat - Breasts Breasts: bilateral: as per HPI - Cardiovascular Cardiovascular: Denies chest pain, Denies shortness of breath - Respiratory Respiratory: Denies cough, Denies 7 - Gastrointestinal Gastrointestinal: Reports as per HPI - Genitourinary (Female) Comment: does not have periods secondary to DEPO, used to have heavy bleeding - Menstruation Comment: on depo - Musculoskeletal Comment: arthritis in hands - Integumentary Integumentary: Denies pruritus, Denies rash - Neurological Neurological: Denies numbness, Denies weakness - Psychiatric Psychiatric: Reports anxiety, Reports depression - Endocrine Endocrine: Reports weight change - Hematologic/Lymphatic Comment: none - Allergic/Immunologic Comment: none Past Medical History Past Medical History: No Reported History Additional Past Medical History / Comment(s): crohns, IBD, colitis History of Any Multi-Drug Resistant Organisms: MRSA Date of last positivie culture/infection: 2002 MDRO Source:: Hip Past Surgical History: Bowel Resection Additional Past Surgical History / Comment(s): wisdom teeth, bowel resection x 2 , sepsis Past Psychological History: Anxiety, Depression Smoking Status: Never smoker Past Alcohol Use History: Occasional Past Drug Use History: None Reported Medications and Allergies Home Medications Medication Instructions Recorded Confirmed Type Loratadine [Claritin] 10 mg PO HS 03/14/17 04/02/18 History Dicyclomine [Bentyl] 10 mg PO HS 06/05/17 04/02/18 History Lurasidone HCl [Latuda] 60 mg PO HS 06/05/17 04/02/18 History Mirtazapine [Remeron] 15 mg PO HS 11/19/17 04/02/18 History Omeprazole 40 mg PO HS 11/19/17 04/02/18 History Ondansetron [Zofran ODT] 4 mg PO Q8HR PRN #10 tab 12/21/17 04/02/18 Rx Ustekinumab [Stelara] 45 mg SQ Q56D 01/04/18 04/02/18 History HYDROcodone/APAP 10-325MG [[place] 1 tab PO HS PRN 03/10/18 04/02/18 History 10-325] Medroxyprogesterone Acetate 150 mg IM Q90D 03/10/18 04/02/18 History [Depo-Provera] Allergies Allergy/AdvReac Type Severity Reaction Status Date / Time adalimumab [From Humira] Allergy RASH/NAUSEA/VOMITING/JOINT Verified 03/10/18 19:25 PAIN amoxicillin trihydrate Allergy Rash/Hives Verified 03/10/18 19:25 [From Augmentin] potassium clavulanate Allergy Rash/Hives Verified 03/10/18 19:25 [From Augmentin] Surgical - Exam Vital Signs Pulse BP Pulse Ox 74 106/73 98 04/02/18 11:43 04/02/18 11:43 04/02/18 11:43 - General obese - Eyes normal ocular movement, no icteric - ENT no hearing loss, no congestion - Neck no masses, trachea midline - Respiratory normal respiratory effort, clear to auscultation - Cardiovascular Rhythm: regular Heart Sounds: normal: S1, S2 - Abdomen Abdomen: soft, non tender, no guarding, no rigid, no rebound - Neurologic no disoriented, no combative - Musculoskeletal normal gait, normal posture - Psychiatric oriented to time, oriented to person, oriented to place, speech is normal, memory intact Breast examination: Right breast: Multiple positional exam no dominant masses or nodules of concern Right axilla: No adenopathy of concern Left breast: Multi-positional exam the dominant masses or nodules of concern Left axilla: No adenopathy of concern Both breasts are full and consistent with fibrocystic changes but no dominant masses were appreciated Assessment and Plan Assessment: Impression/plan: 1. Bilateral fibrocystic breast changes 2. Inflammatory bowel disease/Crohn's status post colon resection 2 3. Irritable bowel syndrome 4. Patient on steroids and biologic for Crohn's disease Plan: 1. Review ultrasound of the breast if this shows fibrocystic change continue follow conservatively 2. Have discussed the effective caffeine and nicotine on fibrocystic disease and patient is aware 3. Continued management of inflammatory bowel disease as per medicine CC: Dr. Guzman
== END ==
LOC: WWCWWP 11:00
PROVIDERS: ATTEND Surgery
DX: Z53.9 Procedure and treatment not carried out, unspecified reason (principal)

== ENCOUNTER → 2018-04-02 | Outpatient (CLI) | payer OTHER ==
--- NOTE | 2018-04-02 16:04 | USB ---
Reason for exam: screening (asymptomatic). History: Taking hormonal contraceptives. Physical Findings: Nurse did not find any significant physical abnormalities on exam. US Breast BILAT Bilateral complete breast ultrasound includes all four quadrants, the retroareolar region and axilla. Finding demonstrates a 0..5 x 0.6 x 0.6 cm oval hypoechoic lesion with inhancement post nipple in the right breast to small to characterize. These results were verbally communicated with the patient and result sheet given to the patient on 04/02/18 ASSESSMENT: Probably benign, BI-RAD 3 RECOMMENDATION: Ultrasound of the right breast in 3 months. Ultrasound of the right breast in 3-6 months. Manage on a clinical basis "fatty tumors bilateral breast"
== END | disposition home or self-care (01) ==
LOC: RADUSWWP 10:58
PROVIDERS: ATTEND Surgery
DX: N63.0 Unspecified lump in unspecified breast (principal)

== ENCOUNTER 2018-04-09 03:32 | Emergency (ER) | payer OTHER ==
--- NOTE | 2018-04-09 03:44 | ED ---
General Adult HPI - General Chief complaint: Nausea/Vomiting/Diarrhea Stated complaint: CROHNS FLARE Time Seen by Provider: 04/09/18 03:44 Source: patient Mode of arrival: ambulatory Limitations: no limitations - History of Present Illness Initial comments: Toy 2-year-old female with history of Crohn's with 2 bowel resections in the past presenting today with persistent nausea, vomiting and diarrhea. Patient reports that she has been experiencing intermittent nausea vomiting diarrhea for approximately year but over the past 3 days it has gotten acutely worse. She reports that she has vomited after every meal. She feels as though her stomach is inflamed, she states that this is similar to previous episodes of gastritis great. Rest is concerned that she is becoming dehydrated because she is not able to keep anything down. She rates her abdominal pain is an 8 out of 10, worse in the epigastrium, worse after vomiting. She has not identified any relieving factors. She has tried to sleep but the pain kept her awake throughout the night which prompted her come to the ER for evaluation. Patient follows closely with gastroenterology Dr. Nicholas at [facility] she reports that since she has had 4 CT scans in a colonoscopy due to the progressively worsening pain with no definitive diagnosis aside from Crohn's exacerbation. She is currently getting injections of medication for Crohn's and based on her last biopsy told that her medication seems to be working well. - Related Data Home Medications Medication Instructions Recorded Confirmed Loratadine [Claritin] 10 mg PO HS 03/14/17 04/02/18 Dicyclomine [Bentyl] 10 mg PO HS 06/05/17 04/02/18 Lurasidone HCl [Latuda] 60 mg PO HS 06/05/17 04/02/18 Mirtazapine [Remeron] 15 mg PO HS 11/19/17 04/02/18 Omeprazole 40 mg PO HS 11/19/17 04/02/18 Ustekinumab [Stelara] 45 mg SQ Q56D 01/04/18 04/02/18 HYDROcodone/APAP 10-325MG [[place] 1 tab PO HS PRN 03/10/18 04/02/18 10-325] Medroxyprogesterone Acetate 150 mg IM Q90D 03/10/18 04/02/18 [Depo-Provera] Previous Rx's Medication Instructions Recorded Ondansetron [Zofran ODT] 4 mg PO Q8HR PRN #10 tab 12/21/17 Allergies Allergy/AdvReac Type Severity Reaction Status Date / Time adalimumab [From Humira] Allergy RASH/NAUSEA/VOMITING/JOINT Verified 04/09/18 03:39 PAIN amoxicillin trihydrate Allergy Rash/Hives Verified 04/09/18 03:39 [From Augmentin] potassium clavulanate Allergy Rash/Hives Verified 04/09/18 03:39 [From Augmentin] Review of Systems ROS Statement: Those systems with pertinent positive or pertinent negative responses have been documented in the HPI. ROS Other: All systems not noted in ROS Statement are negative. Past Medical History Past Medical History: No Reported History Additional Past Medical History / Comment(s): crohns, IBD, colitis History of Any Multi-Drug Resistant Organisms: MRSA Date of last positivie culture/infection: 2002 MDRO Source:: Hip Past Surgical History: Bowel Resection Additional Past Surgical History / Comment(s): wisdom teeth, bowel resection x 2 , sepsis Past Psychological History: Anxiety, Depression Smoking Status: Never smoker Past Alcohol Use History: Occasional Past Drug Use History: None Reported General Exam Limitations: no limitations General appearance: alert, other Head exam: Present: atraumatic (Appears uncomfortable), normocephalic Eye exam: Present: PERRL ENT exam: Present: normal exam Neck exam: Present: normal inspection Respiratory exam: Absent: respiratory distress Cardiovascular Exam: Present: regular rate, normal rhythm GI/Abdominal exam: Present: distended, tenderness, normal bowel sounds, other ( Well healed surgical incision in the midline). Absent: guarding, rebound, rigid Rectal exam: Present: deferred Extremities exam: Present: normal inspection Back exam: Present: normal inspection Neurological exam: Present: alert, oriented X3 Psychiatric exam: Present: flat affect Skin exam: Present: warm, dry Course Vital Signs 04/09/18 04/09/18 03:37 06:33 Temperature 98.4 F 98.2 F Pulse Rate 97 76 Respiratory 20 18 Rate Blood Pressure 111/75 114/67 O2 Sat by Pulse 97 97 Oximetry Medical Decision Making - Medical Decision Making Patient was seen and evaluated, history is obtained from the patient as well as her mother bedside. Patient with chronic abdominal pain nausea and vomiting, 3 days of nausea, vomiting and diarrhea. Patient has been evaluated multiple times over the past 4 months, she has had multiple CT scans in a colonoscopy. Her symptoms have all been attributed to Crohn's with Kg colonoscopy and biopsy was told that it 's under better control than previous. Patient has been compliant with her injection medication. Labs reveal leukocytosis with a white count of 11, no other significant Abnormalities, liver profile lipase were normal X-ray reveals no acute evidence of bowel obstruction Results were discussed with the patient and her mother, patient expresses understanding that there are no acute findings. I offered a computed tomography scan however I discussed the risks and benefits of repeated radiation , patient states that her pain is significantly improved after medications and she does not feel there is any indication for CT scanning. Patient is resting comfortably. All questions pertaining to care were answered the best my ability, patient was discharged home. Patient was given referral for multiple gastroenterologists so she can seek a second opinion. In addition I discussed with the patient importance of following up with a pain management doctor and having a multifocal approach to pain management. I discussed with the patient the incidence of depression and patients with chronic disease, patient does seem to have a flat affect and admits to feeling overwhelming. Patient admits to significant stress. - Lab Data Result diagrams: 04/09/18 04:30 04/09/18 04:30 Lab Results 04/09/18 04/09/18 04/09/18 Range/Units 03:45 03:45 04:30 WBC 11.0 H (3.8-10.6) k/uL RBC 4.68 (3.80-5.40) m/uL Hgb 13.5 (11.4-16.0) gm/dL Hct 39.9 (34.0-46.0) % MCV 85.2 (80.0-100.0) fL MCH 28.8 (25.0-35.0) pg MCHC 33.8 (31.0-37.0) g/dL RDW 14.4 (11.5-15.5) % Plt Count 250 (150-450) k/uL Neutrophils % 75 % Lymphocytes % 18 % Monocytes % 5 % Eosinophils % 1 % Basophils % 0 % Neutrophils # 8.3 H (1.3-7.7) k/uL Lymphocytes # 1.9 (1.0-4.8) k/uL Monocytes # 0.5 (0-1.0) k/uL Eosinophils # 0.2 (0-0.7) k/uL Basophils # 0.0 (0-0.2) k/uL Sodium (137-145) mmol/L Potassium (3.5-5.1) mmol/L Chloride (98-107) mmol/L Carbon Dioxide (22-30) mmol/L Anion Gap mmol/L BUN (7-17) mg/dL Creatinine (0.52-1.04) mg/dL Est GFR (CKD-EPI)AfAm (>60 ml/min/1.73 sqM) Est GFR (CKD-EPI)NonAf (>60 ml/min/1.73 sqM) Glucose (74-99) mg/dL Calcium (8.4-10.2) mg/dL Total Bilirubin (0.2-1.3) mg/dL AST (14-36) U/L ALT (9-52) U/L Alkaline Phosphatase (38-126) U/L Total Protein (6.3-8.2) g/dL Albumin (3.5-5.0) g/dL Lipase (23-300) U/L Urine Color Yellow Urine Appearance Clear (Clear) Urine pH 5.5 (5.0-8.0) Ur Specific [place] 1.019 (1.001-1.035) Urine Protein Negative (Negative) Urine Glucose (UA) Negative (Negative) Urine Ketones Negative (Negative) Urine Blood Negative (Negative) Urine Nitrite Negative (Negative) Urine Bilirubin Negative (Negative) Urine Urobilinogen <2.0 (<2.0) mg/dL Ur Leukocyte Esterase Negative (Negative) Urine HCG, Qual Not Detected (Not Detectd) 04/09/18 Range/Units 04:30 WBC (3.8-10.6) k/uL RBC (3.80-5.40) m/uL Hgb (11.4-16.0) gm/dL Hct (34.0-46.0) % MCV (80.0-100.0) fL MCH (25.0-35.0) pg MCHC (31.0-37.0) g/dL RDW (11.5-15.5) % Plt Count (150-450) k/uL Neutrophils % % Lymphocytes % % Monocytes % % Eosinophils % % Basophils % % Neutrophils # (1.3-7.7) k/uL Lymphocytes # (1.0-4.8) k/uL Monocytes # (0-1.0) k/uL Eosinophils # (0-0.7) k/uL Basophils # (0-0.2) k/uL Sodium 139 (137-145) mmol/L Potassium 4.0 (3.5-5.1) mmol/L Chloride 110 H (98-107) mmol/L Carbon Dioxide 18 L (22-30) mmol/L Anion Gap 11 mmol/L BUN 12 (7-17) mg/dL Creatinine 0.70 (0.52-1.04) mg/dL Est GFR (CKD-EPI)AfAm >90 (>60 ml/min/1.73 sqM) Est GFR (CKD-EPI)NonAf >90 (>60 ml/min/1.73 sqM) Glucose 92 (74-99) mg/dL Calcium 9.1 (8.4-10.2) mg/dL Total Bilirubin <0.1 L (0.2-1.3) mg/dL AST 16 (14-36) U/L ALT 23 (9-52) U/L Alkaline Phosphatase 57 (38-126) U/L Total Protein 6.8 (6.3-8.2) g/dL Albumin 3.7 (3.5-5.0) g/dL Lipase 120 (23-300) U/L Urine Color Urine Appearance (Clear) Urine pH (5.0-8.0) Ur Specific [place] (1.001-1.035) Urine Protein (Negative) Urine Glucose (UA) (Negative) Urine Ketones (Negative) Urine Blood (Negative) Urine Nitrite (Negative) Urine Bilirubin (Negative) Urine Urobilinogen (<2.0) mg/dL Ur Leukocyte Esterase (Negative) Urine HCG, Qual (Not Detectd) Disposition Clinical Impression: Abdominal pain, Nausea vomiting and diarrhea Disposition: HOME SELF-CARE Instructions: Acute Nausea and Vomiting (ED), Abdominal Pain (ED) Is patient prescribed a controlled substance at d/c from ED?: No Referrals: Donavan Guzman DO [Primary Care Provider] - 1-2 days Debby Krishnamurthy MD [REFERRING] - 1-2 days Cosmo Menezes DO [REFERRING] - 1-2 days Junior Baron MD [REFERRING] - 1-2 days Josseline Delgadillo MD [STAFF PHYSICIAN] - 1-2 days Time of Disposition: 06:04
[2018-04-09 04:08] LABS: Appearance,Urine Clear (Clear); Bilirubin,Urine Negative (Negative); Blood,Urine Negative (Negative); Color,Urine Yellow; Glucose,Urine (UA) Negative (Negative); Ketones,Urine Negative (Negative); Leukocyte Esterase,Urine Negative (Negative); Nitrite,Urine Negative (Negative); PH, Urine 5.5 (5.0-8.0); Protein,Urine Negative (Negative); Specific Gravity,Urine 1.019 (1.001-1.035); Urobilinogen,Urine <2.0 mg/dL (<2.0)
[2018-04-09] MEDS ORDERED: MORPHINE SULFATE 4 MG/ML SYRINGE IV STA (04:11)
[2018-04-09] MEDS ORDERED: ONDANSETRON 4 MG/2 ML VIAL IVP STA (04:11)
[2018-04-09] MEDS ORDERED: SODIUM CHLORIDE 0.9% 1,000 ML IV STA (04:11)
[2018-04-09] MEDS ORDERED: DICYCLOMINE 10 MG CAP PO STA (04:11)
[2018-04-09] MEDS ORDERED: FAMOTIDINE 20 MG/2 ML VIAL IV STA (04:11)
[2018-04-09 05:01] LABS: Basophils % (A) 0 %; Eosinophils # (A) 0.2 k/uL (0-0.7); Eosinophils % (A) 1 %; HCT 39.9 % (34.0-46.0); HGB 13.5 gm/dL (11.4-16.0); Lymphocytes # (A) 1.9 k/uL (1.0-4.8); Lymphocytes % (A) 18 %; MCH 28.8 pg (25.0-35.0); MCHC 33.8 g/dL (31.0-37.0); MCV 85.2 fL (80.0-100.0); Monocytes # (A) 0.5 k/uL (0-1.0); Monocytes % (A) 5 %; Neutrophils # (A) 8.3 k/uL (1.3-7.7); Neutrophils % (A) 75 %; Platelet Count 250 k/uL (150-450); RBC 4.68 m/uL (3.80-5.40); RDW 14.4 % (11.5-15.5)
[2018-04-09 05:09] LABS: ALT 23 U/L (9-52); AST 16 U/L (14-36); Albumin 3.7 g/dL (3.5-5.0); Alkaline Phosphatase 57 U/L (38-126); Anion Gap 11 mmol/L; Blood Urea Nitrogen 12 mg/dL (7-17); Calcium 9.1 mg/dL (8.4-10.2); Carbon Dioxide 18 mmol/L (22-30); Chloride 110 mmol/L (98-107); Glucose 92 mg/dL (74-99); Lipase 120 U/L (23-300); Sodium 139 mmol/L (137-145); Total Bilirubin <0.1 mg/dL (0.2-1.3); Total Protein 6.8 g/dL (6.3-8.2)
--- NOTE | 2018-04-09 05:54 | XR ---
EXAM: XR Abdomen, 1 View CLINICAL HISTORY: XR Reason: pain TECHNIQUE: Frontal upright views of the abdomen. COMPARISON: CT 03/10/18, XR 02/08/18 FINDINGS: Intraperitoneal space: No free air. Gastrointestinal tract: Air-fluid levels within the colon which may reflect a degree of diarrhea. No abnormal dilatation. Bones/joints: Unremarkable. IMPRESSION: Air-fluid levels within the colon which may reflect a degree of diarrhea. No abnormal dilatation.
[2018-04-09] MEDS ORDERED: MORPHINE SULFATE 4 MG/ML SYRINGE IVP STA (06:03)
[2018-04-09 07:01] VITALS: BP 114/67; PULSE 76; RESP 18; TEMP 98.2
== END 2018-04-09 06:33 | disposition home or self-care (01) ==
LOC: EC 03:32
DX: R10.13 Epigastric pain (principal); G89.29 Other chronic pain; R11.2 Nausea with vomiting, unspecified; R19.7 Diarrhea, unspecified; D72.829 Elevated white blood cell count, unspecified; K50.90 Crohn's disease, unspecified, without complications; F41.9 Anxiety disorder, unspecified; F32.9 Major depressive disorder, single episode, unspecified; Z79.899 Other long term (current) drug therapy; Z88.0 Allergy status to penicillin; Z88.8 Allergy status to other drugs, medicaments and biological substances; Z86.14 Personal history of Methicillin resistant Staphylococcus aureus infection; Z98.890 Other specified postprocedural states
CPT/HCPCS: 99284; 96374; 96375 ×2; 96376; 96361; 36415; 80053; 83690; 85025; 81003; 81025; 74018; J2270; J2405

== ENCOUNTER 2018-04-10 21:52 | Emergency (ER) | payer OTHER ==
[2018-04-10 22:12] VITALS: BP 125/89; PULSE 84; RESP 20; TEMP 99
[2018-04-10] MEDS ORDERED: MORPHINE SULFATE 4 MG/ML SYRINGE IV STA (23:37)
[2018-04-10] MEDS ORDERED: SODIUM CHLORIDE 0.9% 1,000 ML IV STA (23:37)
[2018-04-10] MEDS ORDERED: diphenhydrAMINE 50 MG/ML 1 ML VIAL IVP STA (23:37)
[2018-04-10] MEDS ORDERED: METOCLOPRAMIDE 5 MG/ML 2 ML VIAL IVP STA (23:37)
--- NOTE | 2018-04-10 23:44 | ED ---
Abdominal Pain HPI - General Chief Complaint: Abdominal Pain Stated Complaint: Vomiting Time Seen by Provider: 04/10/18 23:02 Source: patient, family, RN notes reviewed Mode of arrival: ambulatory Limitations: no limitations - History of Present Illness Initial Comments: This is a 22-year-old female with history of Crohn's disease and 2 bowel resections who presents to the emergency department with chief complaint of abdominal pain, nausea and vomiting. Patient was seen here in the emergency department a couple of days ago. She was discharged home and given referrals to multiple other gastroenterologists for a second opinion for chronic pain. She was also referred to chronic pain specialists. Patient reports that when she got home on she slept for most of the day. She states that she was feeling well and was keeping down food and water. She states that when she woke up today she ate a muffin and coffee. She states that she was called in early to work which caught her off guard. She states she does not believe she had enough time to rest. She states that throughout the entire day today she has been vomiting. She reports mid abdominal pain which is where her pain it normally is. She denies any worsening of pain since being seen here a couple of days ago. She states that she tried to take a Zofran and a [place] but threw them back up this evening. She denies fevers or chills, chest pain or shortness of breath, diarrhea. She states that she has not had a bowel movement in the last couple of days but states she believes this is because she has not been eating any solid foods. Patient does see a warehouse checker at [facility] and receives Stelara injections every 8 weeks. - Related Data Home Medications Medication Instructions Recorded Confirmed Loratadine [Claritin] 10 mg PO HS 03/14/17 04/10/18 Dicyclomine [Bentyl] 10 mg PO HS 06/05/17 04/10/18 Lurasidone HCl [Latuda] 60 mg PO HS 06/05/17 04/10/18 Mirtazapine [Remeron] 15 mg PO HS 11/19/17 04/10/18 Omeprazole 40 mg PO HS 11/19/17 04/10/18 Ustekinumab [Stelara] 45 mg SQ Q56D 01/04/18 04/10/18 HYDROcodone/APAP 10-325MG [[place] 1 tab PO HS PRN 03/10/18 04/10/18 10-325] Medroxyprogesterone Acetate 150 mg IM Q90D 03/10/18 04/10/18 [Depo-Provera] Previous Rx's Medication Instructions Recorded Ondansetron [Zofran ODT] 4 mg PO Q8HR PRN #10 tab 12/21/17 Metoclopramide HCl [Reglan] 10 mg PO Q6HR PRN #20 tablet 04/11/18 Allergies Allergy/AdvReac Type Severity Reaction Status Date / Time adalimumab [From Humira] Allergy RASH/NAUSEA/VOMITING/JOINT Verified 04/10/18 22:11 PAIN amoxicillin trihydrate Allergy Rash/Hives Verified 04/10/18 22:11 [From Augmentin] potassium clavulanate Allergy Rash/Hives Verified 04/10/18 22:11 [From Augmentin] Review of Systems ROS Statement: Those systems with pertinent positive or pertinent negative responses have been documented in the HPI. ROS Other: All systems not noted in ROS Statement are negative. Past Medical History Past Medical History: No Reported History Additional Past Medical History / Comment(s): crohns, IBD, colitis History of Any Multi-Drug Resistant Organisms: MRSA Date of last positivie culture/infection: 2002 MDRO Source:: Hip Past Surgical History: Bowel Resection Additional Past Surgical History / Comment(s): wisdom teeth, bowel resection x 2 , sepsis Past Psychological History: Anxiety, Depression Smoking Status: Never smoker Past Alcohol Use History: Occasional Past Drug Use History: None Reported General Exam - General Exam Comments Initial Comments: General: Awake and alert, well-developed; in no apparent distress. HEENT: Head atraumatic, normocephalic. Pupils are equal, round and reactive to light. Extraocular movements intact. Oropharynx moist without erythema or exudate. Neck: Supple. Normal ROM. Cardiovascular: Regular rate and rhythm. No murmurs, rubs or gallops. Chest symmetrical. Respiratory: Lungs clear to auscultation bilaterally. No wheezes, rales or rhonchi. Normal respiratory effort with no use of accessory muscles. Abdomen: Firm, mildly distended. Longitudinal scar noted to the mid abdomen. There is tenderness on palpation of periumbilical, epigastric and left lower quadrant abdomen. No rigidity or rebound. Normal bowel sounds within the left side of the abdomen. Musculoskeletal: Normal ROM, no tenderness bilateral upper and lower extremities. Skin: [place], warm and dry without rashes or lesions. Neurological: Alert and oriented x3. CN II-XII grossly intact. Speech is fluent and answers are appropriate. No focal neuro deficits. Psychiatric: Normal mood and affect. No overt signs of depression or anxiety noted. Limitations: no limitations Course Vital Signs 04/10/18 22:09 Temperature 99 F Pulse Rate 84 Respiratory 20 Rate Blood Pressure 125/89 O2 Sat by Pulse 100 Oximetry Medical Decision Making - Medical Decision Making This is a 22-year-old female with history of Crohn's disease who presents to the emergency department with chief complaint of abdominal pain and vomiting. CBC and CMP revealed no acute abnormalities. UA is contaminated and sent for a culture. This is pending. Patient denies any urinary symptoms including dysuria, hematuria or increased frequency. Patient was given IV fluids, antiemetics and pain medication in the emergency department. She reports significant improvement in her symptoms. She is ready to be discharged home. Vital signs have been stable and she is in no acute distress. Patient will be discharged home at this time. She will be provided with a prescription for Reglan. She is in agreement with plan and voices understanding. All questions answered. - Lab Data Result diagrams: 04/10/18 23:54 04/10/18 23:54 Lab Results 04/10/18 04/10/18 04/10/18 Range/Units 23:54 23:54 23:54 WBC 8.5 (3.8-10.6) k/uL RBC 4.71 (3.80-5.40) m/uL Hgb 13.4 (11.4-16.0) gm/dL Hct 40.2 (34.0-46.0) % MCV 85.5 (80.0-100.0) fL MCH 28.4 (25.0-35.0) pg MCHC 33.3 (31.0-37.0) g/dL RDW 14.5 (11.5-15.5) % Plt Count 236 (150-450) k/uL Neutrophils % 64 % Lymphocytes % 27 % Monocytes % 6 % Eosinophils % 2 % Basophils % 0 % Neutrophils # 5.4 (1.3-7.7) k/uL Lymphocytes # 2.3 (1.0-4.8) k/uL Monocytes # 0.5 (0-1.0) k/uL Eosinophils # 0.2 (0-0.7) k/uL Basophils # 0.0 (0-0.2) k/uL Sodium 140 (137-145) mmol/L Potassium 4.3 (3.5-5.1) mmol/L Chloride 109 H (98-107) mmol/L Carbon Dioxide 19 L (22-30) mmol/L Anion Gap 12 mmol/L BUN 7 (7-17) mg/dL Creatinine 0.60 (0.52-1.04) mg/dL Est GFR (CKD-EPI)AfAm >90 (>60 ml/min/1.73 sqM) Est GFR (CKD-EPI)NonAf >90 (>60 ml/min/1.73 sqM) Glucose 77 (74-99) mg/dL Calcium 9.9 (8.4-10.2) mg/dL Total Bilirubin 0.5 (0.2-1.3) mg/dL AST 32 (14-36) U/L ALT 25 (9-52) U/L Alkaline Phosphatase 73 (38-126) U/L Total Protein 8.1 (6.3-8.2) g/dL Albumin 4.6 (3.5-5.0) g/dL Amylase 71 (30-110) U/L Lipase 73 (23-300) U/L Urine Color Light Yellow Urine Appearance Cloudy H (Clear) Urine pH 5.5 (5.0-8.0) Ur Specific [place] 1.011 (1.001-1.035) Urine Protein Trace H (Negative) Urine Glucose (UA) Negative (Negative) Urine Ketones Negative (Negative) Urine Blood Small H (Negative) Urine Nitrite Negative (Negative) Urine Bilirubin Negative (Negative) Urine Urobilinogen <2.0 (<2.0) mg/dL Ur Leukocyte Esterase Large H (Negative) Urine RBC 3 (0-5) /hpf Urine WBC >182 H (0-5) /hpf Ur Squamous Epith Cells 16 H (0-4) /hpf Urine Mucus Rare H (None) /hpf Urine HCG, Qual (Not Detectd) 04/10/18 Range/Units 23:54 WBC (3.8-10.6) k/uL RBC (3.80-5.40) m/uL Hgb (11.4-16.0) gm/dL Hct (34.0-46.0) % MCV (80.0-100.0) fL MCH (25.0-35.0) pg MCHC (31.0-37.0) g/dL RDW (11.5-15.5) % Plt Count (150-450) k/uL Neutrophils % % Lymphocytes % % Monocytes % % Eosinophils % % Basophils % % Neutrophils # (1.3-7.7) k/uL Lymphocytes # (1.0-4.8) k/uL Monocytes # (0-1.0) k/uL Eosinophils # (0-0.7) k/uL Basophils # (0-0.2) k/uL Sodium (137-145) mmol/L Potassium (3.5-5.1) mmol/L Chloride (98-107) mmol/L Carbon Dioxide (22-30) mmol/L Anion Gap mmol/L BUN (7-17) mg/dL Creatinine (0.52-1.04) mg/dL Est GFR (CKD-EPI)AfAm (>60 ml/min/1.73 sqM) Est GFR (CKD-EPI)NonAf (>60 ml/min/1.73 sqM) Glucose (74-99) mg/dL Calcium (8.4-10.2) mg/dL Total Bilirubin (0.2-1.3) mg/dL AST (14-36) U/L ALT (9-52) U/L Alkaline Phosphatase (38-126) U/L Total Protein (6.3-8.2) g/dL Albumin (3.5-5.0) g/dL Amylase (30-110) U/L Lipase (23-300) U/L Urine Color Urine Appearance (Clear) Urine pH (5.0-8.0) Ur Specific [place] (1.001-1.035) Urine Protein (Negative) Urine Glucose (UA) (Negative) Urine Ketones (Negative) Urine Blood (Negative) Urine Nitrite (Negative) Urine Bilirubin (Negative) Urine Urobilinogen (<2.0) mg/dL Ur Leukocyte Esterase (Negative) Urine RBC (0-5) /hpf Urine WBC (0-5) /hpf Ur Squamous Epith Cells (0-4) /hpf Urine Mucus (None) /hpf Urine HCG, Qual Not Detected (Not Detectd) Disposition Clinical Impression: Abdominal pain, Nausea and vomiting Disposition: HOME SELF-CARE Condition: Good Instructions: Acute Nausea and Vomiting (ED), Crohn Disease (ED), Chronic Abdominal Pain (ED) Additional Instructions: Please take medications as prescribed. Please follow up with primary care provider within 1-2 days. Return to emergency department if symptoms should worsen or any concerns arise. Prescriptions: Metoclopramide HCl [Reglan] 10 mg PO Q6HR PRN #20 tablet PRN Reason: Nausea And Vomiting Is patient prescribed a controlled substance at d/c from ED?: No Referrals: Donavan Guzman DO [Primary Care Provider] - 1-2 days Time of Disposition: 01:27
[2018-04-11 00:28] LABS: Basophils % (A) 0 %; Eosinophils # (A) 0.2 k/uL (0-0.7); Eosinophils % (A) 2 %; HCT 40.2 % (34.0-46.0); HGB 13.4 gm/dL (11.4-16.0); Lymphocytes # (A) 2.3 k/uL (1.0-4.8); Lymphocytes % (A) 27 %; MCH 28.4 pg (25.0-35.0); MCHC 33.3 g/dL (31.0-37.0); MCV 85.5 fL (80.0-100.0); Mean Platelet Volume 6.8; Monocytes # (A) 0.5 k/uL (0-1.0); Monocytes % (A) 6 %; Neutrophils # (A) 5.4 k/uL (1.3-7.7); Neutrophils % (A) 64 %; Platelet Count 236 k/uL (150-450); RBC 4.71 m/uL (3.80-5.40); RDW 14.5 % (11.5-15.5); WBC 8.5 k/uL (3.8-10.6)
[2018-04-11 00:31] LABS: Appearance,Urine Cloudy (Clear); Bilirubin,Urine Negative (Negative); Blood,Urine Small (Negative); Color,Urine Light Yellow; Glucose,Urine (UA) Negative (Negative); Ketones,Urine Negative (Negative); Leukocyte Esterase,Urine Large (Negative); Mucus,Urine Rare /hpf; Nitrite,Urine Negative (Negative); PH, Urine 5.5 (5.0-8.0); Protein,Urine Trace (Negative); RBC,Urine 3 /hpf (0-5); Specific Gravity,Urine 1.011 (1.001-1.035); Squamous Epithelial Cell,Urine 16 /hpf (0-4); Urobilinogen,Urine <2.0 mg/dL (<2.0); WBC,Urine >182 /hpf (0-5)
[2018-04-11 00:41] LABS: ALT 25 U/L (9-52); AST 32 U/L (14-36); Albumin 4.6 g/dL (3.5-5.0); Alkaline Phosphatase 73 U/L (38-126); Amylase 71 U/L (30-110); Anion Gap 12 mmol/L; Blood Urea Nitrogen 7 mg/dL (7-17); Calcium 9.9 mg/dL (8.4-10.2); Carbon Dioxide 19 mmol/L (22-30); Chloride 109 mmol/L (98-107); Glucose 77 mg/dL (74-99); Lipase 73 U/L (23-300); Sodium 140 mmol/L (137-145); Total Bilirubin 0.5 mg/dL (0.2-1.3); Total Protein 8.1 g/dL (6.3-8.2)
[2018-04-11 00:43] LABS: Potassium 4.3 mmol/L (3.5-5.1)
[2018-04-11] MEDS ORDERED: MORPHINE SULFATE 2 MG/ML SYRINGE IVP STA (01:21)
== END 2018-04-11 01:35 | disposition home or self-care (01) ==
LOC: EC 21:52
DX: R10.9 Unspecified abdominal pain (principal); R11.2 Nausea with vomiting, unspecified; F41.9 Anxiety disorder, unspecified; F32.9 Major depressive disorder, single episode, unspecified; Z87.19 Personal history of other diseases of the digestive system; Z86.14 Personal history of Methicillin resistant Staphylococcus aureus infection; Z79.3 Long term (current) use of hormonal contraceptives; Z79.899 Other long term (current) drug therapy; Z88.8 Allergy status to other drugs, medicaments and biological substances; Z88.0 Allergy status to penicillin
CPT/HCPCS: 36415; 80053; 82150; 83690; 85025; 81001; 81025; 87086; 99284; 96374; 96375 ×2; 96376; 96361; J2270 ×2; J1200; J2765

== ENCOUNTER 2018-04-11 17:55 | Observation (INO) | payer OTHER ==
[2018-04-11] MEDS ORDERED: SODIUM CHLORIDE 0.9% 500 ML IV STA (18:44)
[2018-04-11] MEDS ORDERED: METOCLOPRAMIDE 5 MG/ML 2 ML VIAL IVP STA (18:52)
[2018-04-11] MEDS ORDERED: diphenhydrAMINE 50 MG/ML 1 ML VIAL IVP STA (18:52)
--- NOTE | 2018-04-11 18:55 | ED ---
Abdominal Pain HPI - General Chief Complaint: Abdominal Pain Stated Complaint: NVD Source: patient Mode of arrival: ambulatory Limitations: no limitations - History of Present Illness Initial Comments: 22-year-old female presents with ongoing epigastric discomfort she's had for 1 month along with vomiting. Patient patient unable to eat or drink anything without it coming back up. Patient states she's been pounds in a month. Patient states this is different discomfort than her regular Crohn's discomfort. Patient states she did have a loose stool 3 days ago. No recorded fevers. No dysuria or back pain. Patient does see GI specialist she had a colonoscopy one month ago without any abnormalities. She's had 4 CT scans of her abdomen in the last 5 months. Patient states she has specialist is at [place]. Patient states he just tells her to take an antacid. Patient has been to the ER 3 visits this week for the same thing. Patient states the Reglan did help her yesterday. MD Complaint: abdominal pain Location: epigastric Quality: aching Consistency: constant Improves With: nothing Worsens With: nothing, eating Associated Symptoms: nausea, vomiting, diarrhea - Related Data Home Medications Medication Instructions Recorded Confirmed Loratadine [Claritin] 10 mg PO HS 03/14/17 04/10/18 Dicyclomine [Bentyl] 10 mg PO HS 06/05/17 04/10/18 Lurasidone HCl [Latuda] 60 mg PO HS 06/05/17 04/10/18 Mirtazapine [Remeron] 15 mg PO HS 11/19/17 04/10/18 Omeprazole 40 mg PO HS 11/19/17 04/10/18 Ustekinumab [Stelara] 45 mg SQ Q56D 01/04/18 04/10/18 HYDROcodone/APAP 10-325MG [[place] 1 tab PO HS PRN 03/10/18 04/10/18 10-325] Medroxyprogesterone Acetate 150 mg IM Q90D 03/10/18 04/10/18 [Depo-Provera] Previous Rx's Medication Instructions Recorded Ondansetron [Zofran ODT] 4 mg PO Q8HR PRN #10 tab 12/21/17 Metoclopramide HCl [Reglan] 10 mg PO Q6HR PRN #20 tablet 04/11/18 Allergies Allergy/AdvReac Type Severity Reaction Status Date / Time adalimumab [From Humira] Allergy RASH/NAUSEA/VOMITING/JOINT Verified 04/11/18 18:15 PAIN amoxicillin trihydrate Allergy Rash/Hives Verified 04/11/18 18:15 [From Augmentin] potassium clavulanate Allergy Rash/Hives Verified 04/11/18 18:15 [From Augmentin] Review of Systems ROS Statement: Those systems with pertinent positive or pertinent negative responses have been documented in the HPI. ROS Other: All systems not noted in ROS Statement are negative. Constitutional: Denies: fever Gastrointestinal: Reports: abdominal pain, nausea, vomiting. Denies: diarrhea Genitourinary: Denies: urgency, dysuria, frequency, hematuria Past Medical History Past Medical History: No Reported History Additional Past Medical History / Comment(s): crohns, IBD, colitis History of Any Multi-Drug Resistant Organisms: MRSA Date of last positivie culture/infection: 2002 MDRO Source:: Hip Past Surgical History: Bowel Resection Additional Past Surgical History / Comment(s): wisdom teeth, bowel resection x 2 , sepsis Past Psychological History: Anxiety, Depression Smoking Status: Never smoker Past Alcohol Use History: Occasional Past Drug Use History: None Reported General Exam Limitations: no limitations General appearance: alert, in no apparent distress Eye exam: Present: normal appearance, PERRL, EOMI. Absent: scleral icterus, conjunctival injection, periorbital swelling ENT exam: Present: normal exam, mucous membranes moist Respiratory exam: Present: normal lung sounds bilaterally. Absent: respiratory distress, wheezes, rales, rhonchi, stridor Cardiovascular Exam: Present: regular rate, normal rhythm, normal heart sounds. Absent: systolic murmur, diastolic murmur, rubs, gallop, clicks GI/Abdominal exam: Present: soft, tenderness (Epigastric), normal bowel sounds. Absent: distended, guarding, rebound, rigid Neurological exam: Present: alert, oriented X3, CN II-XII intact Psychiatric exam: Present: normal affect, normal mood Skin exam: Present: warm, dry, intact, normal color. Absent: rash Course Vital Signs 04/11/18 04/11/18 18:15 19:33 Temperature 98.4 F 98.6 F Pulse Rate 98 98 Respiratory 18 16 Rate Blood Pressure 119/80 110/74 O2 Sat by Pulse 99 98 Oximetry Medical Decision Making - Medical Decision Making reviewed all labs , except awaiting h.pylori. pt feeling better after reglan and morphine. Discussed with Dr. Hughes. Patient pcp is dr. schmitt and will be admitted to dr. blanton. gi will be consulted as well. await urine culture from yesterday awaiting xray interpretation - Lab Data Result diagrams: 04/11/18 19:23 04/11/18 19:23 Lab Results 04/11/18 04/11/18 Range/Units 19:23 19:23 WBC 6.3 (3.8-10.6) k/uL RBC 4.72 (3.80-5.40) m/uL Hgb 13.4 (11.4-16.0) gm/dL Hct 41.2 (34.0-46.0) % MCV 87.3 (80.0-100.0) fL MCH 28.5 (25.0-35.0) pg MCHC 32.6 (31.0-37.0) g/dL RDW 14.6 (11.5-15.5) % Plt Count 240 (150-450) k/uL Neutrophils % 62 % Lymphocytes % 28 % Monocytes % 6 % Eosinophils % 3 % Basophils % 0 % Neutrophils # 3.8 (1.3-7.7) k/uL Lymphocytes # 1.7 (1.0-4.8) k/uL Monocytes # 0.4 (0-1.0) k/uL Eosinophils # 0.2 (0-0.7) k/uL Basophils # 0.0 (0-0.2) k/uL Sodium 140 (137-145) mmol/L Potassium 3.9 (3.5-5.1) mmol/L Chloride 111 H (98-107) mmol/L Carbon Dioxide 19 L (22-30) mmol/L Anion Gap 10 mmol/L BUN 10 (7-17) mg/dL Creatinine 0.74 (0.52-1.04) mg/dL Est GFR (CKD-EPI)AfAm >90 (>60 ml/min/1.73 sqM) Est GFR (CKD-EPI)NonAf >90 (>60 ml/min/1.73 sqM) Glucose 78 (74-99) mg/dL Calcium 9.3 (8.4-10.2) mg/dL Total Bilirubin 0.2 (0.2-1.3) mg/dL AST 25 (14-36) U/L ALT 29 (9-52) U/L Alkaline Phosphatase 68 (38-126) U/L Total Protein 7.0 (6.3-8.2) g/dL Albumin 3.9 (3.5-5.0) g/dL Disposition Clinical Impression: Intractable vomiting with nausea, Epigastric abdominal pain, Nausea and vomiting, Abdominal pain Disposition: ADMITTED IP TO THIS [facility] Condition: Fair Instructions: Acute Nausea and Vomiting (ED), Abdominal Pain (ED) Referrals: Donavan Schmitt DO [Primary Care Provider] - 1-2 days
[2018-04-11] MEDS ORDERED: MORPHINE SULFATE 4 MG/ML SYRINGE IVP STA (19:36)
[2018-04-11 19:56] LABS: ALT 29 U/L (9-52); AST 25 U/L (14-36); Albumin 3.9 g/dL (3.5-5.0); Alkaline Phosphatase 68 U/L (38-126); Anion Gap 10 mmol/L; Blood Urea Nitrogen 10 mg/dL (7-17); Calcium 9.3 mg/dL (8.4-10.2); Carbon Dioxide 19 mmol/L (22-30); Chloride 111 mmol/L (98-107); Glucose 78 mg/dL (74-99); Potassium 3.9 mmol/L (3.5-5.1); Sodium 140 mmol/L (137-145); Total Bilirubin 0.2 mg/dL (0.2-1.3)
[2018-04-11 20:02] LABS: Basophils % (A) 0 %; Eosinophils # (A) 0.2 k/uL (0-0.7); Eosinophils % (A) 3 %; HCT 41.2 % (34.0-46.0); HGB 13.4 gm/dL (11.4-16.0); Lymphocytes # (A) 1.7 k/uL (1.0-4.8); Lymphocytes % (A) 28 %; MCH 28.5 pg (25.0-35.0); MCHC 32.6 g/dL (31.0-37.0); MCV 87.3 fL (80.0-100.0); Mean Platelet Volume 7.1; Monocytes # (A) 0.4 k/uL (0-1.0); Monocytes % (A) 6 %; Neutrophils # (A) 3.8 k/uL (1.3-7.7); Neutrophils % (A) 62 %; Platelet Count 240 k/uL (150-450); RBC 4.72 m/uL (3.80-5.40); RDW 14.6 % (11.5-15.5); WBC 6.3 k/uL (3.8-10.6)
[2018-04-11] MEDS ORDERED: ACETAMINOPHEN TAB 325 MG TAB PO PRN (20:16)
[2018-04-11] MEDS ORDERED: NALOXONE 0.4 MG/ML 1 ML VIAL IV PRN (20:16)
[2018-04-11] MEDS ORDERED: ONDANSETRON 4 MG/2 ML VIAL IVP PRN (20:16)
[2018-04-11] MEDS ORDERED: MORPHINE SULFATE 2 MG/ML SYRINGE IV PRN (20:16)
[2018-04-11] MEDS ORDERED: SODIUM CHLORIDE 0.9% 1,000 ML IV SCH (20:30)
[2018-04-11 21:24] VITALS: BMI 29.0
--- NOTE | 2018-04-11 21:50 | XR ---
EXAMINATION TYPE: XR abdomen 2V DATE OF EXAM: 04/11/2018 CLINICAL HISTORY: Generalized abdominal pain for one month with nausea and vomiting. TECHNIQUE: Supine and upright views of the abdomen are obtained. COMPARISON: CT abdomen and pelvis March 10, 2018. Most recent abdominal x-ray April 09, 2018 FINDINGS: Scattered gas is seen in non-distended stomach and small bowel loops. Gas is seen in non- distended colon. Interval improvement in colonic air fluid levels. There is no visceromegaly, pneumop eritoneum, or abnormal calcification appreciated. The lung bases are clear and the osseous structur es are intact. IMPRESSION: Overall nonobstructive bowel gas pattern currently.
[2018-04-12] MEDS: MORPHINE SULFATE 2 MG/ML SYRINGE IV PRN ×4 (00:16→13:27)
[2018-04-12 08:08] VITALS: PULSE 66; TEMP 98.3
[2018-04-12 12:29] VITALS: BP 94/58; RESP 16
--- NOTE | 2018-04-12 19:33 | P.HPIM ---
History of Present Illness H&P Date: 04/12/18 Chief Complaint: Abdominal pain Patient is a 28-year-old female with known history of Crohn's disease diagnosed at age 10 came to ER with complaints of abdominal discomfort mainly in the upper abdomen for the past 1 month. Patient says that she had diarrhea about 3 days back. Currently patient denied any bowel movement for the past 3 days. Patient had last colonoscopy 2 months ago without any abnormality.. Patient has been having nausea and vomiting and unable to drink or eat and presented to ER for further evaluation. Denied any fever or chills. No dysuria. No compressive back pain or flank pain. Patient follows with GI physician in [facility]. She's had 4 CT scans of her abdomen in the last 5 months. Patient has been to the ER 3 visits this week for the same thing. Patient states the Reglan did help her yesterday. Patient is being continued on morphine for pain management and nothing by mouth. X-ray of the abdomen showed nonspecific bowel gas pattern Review of Systems Constitutional: Patient denies any fever or chills . No generalized weakness or weight loss. Abdomen: Agent does have abdominal pain nausea vomiting and diarrhea 2 days ago. Cardiovascular: Patient denies any chest pain or short of breath no palpitations. Respiratory: patient denied any cough is from production. No shortness of breath Neurologic: Patient denied any numbness or tingling headache. Musculoskeletal: Patient denies any complaints of joint swelling or deformity. Skin: Negative Psychiatric: Negative Endocrine: No heat or cold intolerance. No recent weight gain. Genitourinary: No dysuria or hematuria. All other 14 point ROS negative except the above Past Medical History Past Medical History: No Reported History Additional Past Medical History / Comment(s): crohns, IBD, colitis dx of crohns at age 10. History of Any Multi-Drug Resistant Organisms: MRSA Date of last positivie culture/infection: 2002 MDRO Source:: Hip Past Surgical History: Bowel Resection Additional Past Surgical History / Comment(s): wisdom teeth, bowel resection x 2 in 2017, sepsis after first surgery Past Psychological History: Anxiety, Depression Smoking Status: Never smoker Past Alcohol Use History: Occasional Past Drug Use History: None Reported - Past Family History Mother Family Medical History: Cancer Medications and Allergies Home Medications Medication Instructions Recorded Confirmed Type Loratadine [Claritin] 10 mg PO HS 03/14/17 04/12/18 History Dicyclomine [Bentyl] 10 mg PO HS 06/05/17 04/12/18 History Lurasidone HCl [Latuda] 60 mg PO HS 06/05/17 04/12/18 History Mirtazapine [Remeron] 15 mg PO HS 11/19/17 04/12/18 History Omeprazole 40 mg PO HS 11/19/17 04/12/18 History Ondansetron [Zofran ODT] 4 mg PO Q8HR PRN #10 tab 12/21/17 04/12/18 Rx Ustekinumab [Stelara] 45 mg SQ Q56D 01/04/18 04/12/18 History HYDROcodone/APAP 10-325MG [[place] 1 tab PO Q6HR PRN 03/10/18 04/12/18 History 10-325] Medroxyprogesterone Acetate 150 mg IM Q90D 03/10/18 04/12/18 History [Depo-Provera] Amitriptyline HCl 10 mg PO HS 04/11/18 04/12/18 History Metoclopramide HCl [Reglan] 10 mg PO Q6HR PRN #20 tablet 04/11/18 04/12/18 Rx Allergies Allergy/AdvReac Type Severity Reaction Status Date / Time adalimumab [From Humira] Allergy RASH/NAUSEA/VOMITING/JOINT Verified 04/12/18 12:05 PAIN amoxicillin trihydrate Allergy Rash/Hives Verified 04/12/18 12:05 [From Augmentin] potassium clavulanate Allergy Rash/Hives Verified 04/12/18 12:05 [From Augmentin] Physical Exam Vitals: Vital Signs Temp Pulse Pulse Resp BP BP Pulse Ox 04/12/18 07:50 98.3 F 66 19 100/67 97 04/12/18 00:30 98.1 F 87 20 107/71 100 04/11/18 21:13 98.2 F 72 18 118/79 100 04/11/18 20:37 80 16 103/65 98 04/11/18 19:33 98.6 F 98 16 110/74 98 04/11/18 18:15 98.4 F 98 18 119/80 99 Intake and Output 04/11/18 04/12/18 04/12/18 22:59 06:59 14:59 Intake Total 0 Output Total 700 Balance -700 0 Intake: Oral 0 Output: Urine 700 Other: # Voids 1 1 Weight 84.1 kg PHYSICAL EXAMINATION: Patient is lying in the bed comfortably, no acute distress, awake alert and oriented.. HEENT: Normocephalic. Neck is supple. Pupils reactive. Nostrils clear. Oral cavity is moist. Ears reveal no drainage. Neck reveals no JVD, carotid bruits, or thyromegaly. CHEST EXAMINATION: Trachea is central. Symmetrical expansion. Lung aquino clear to auscultation and percussion. CARDIAC: Normal S1, S2 with no gallops. No murmurs ABDOMEN: Soft. Mild epigastric tenderness. Bowel sounds normal. No organomegaly. No abdominal bruits. Extremities: reveal no edema. No clubbing or cyanosis Neurologically awake, alert, oriented x3 with well-coordinated movements. No focal deficits noted Skin: No rash or skin lesions. Psychiatric: Coperative. Nonsuicidal Musculoskeletal: No joint swelling or deformity. Normal range of motion. Results CBC & Chem 7: 04/11/18 19:23 04/11/18 19:23 Labs: Abnormal Lab Results - Last 24 Hours (Table) 04/11/18 Range/Units 19:23 Chloride 111 H (98-107) mmol/L Carbon Dioxide 19 L (22-30) mmol/L Thrombosis Risk Factor Assmnt - DVT/VTE Prophylaxis DVT/VTE Prophylaxis: Pharmacologic Prophylaxis ordered - Choose All That Apply Each Factor Represents 1 point: Obesity (BMI >25), Oral contraceptives or hormone replacement therapy Other Risk Factors: No Thrombosis Risk Factor Assessment Total Risk Factor Score: 2 Thrombosis Risk Factor Assessment Level: Low Risk Assessment and Plan Assessment: Abdominal pain mainly in the epigastric region. Gastritis versus Crohn's disease flare. Nausea vomiting and abdominal pain Anxiety and depression DVT prophylaxis Plan: Patient will be continued on pain management with morphine and nothing by mouth controlled with IV hydration and follow closely. GI has been consulted. Further recommendations based on clinical course. Time with Patient: Greater than 30
--- NOTE | 2018-04-12 19:36 | P.DS ---
Providers Date of admission: 04/11/18 20:19 Expected date of discharge: 04/12/18 Attending physician: Inocente Sheets Primary care physician: Donavan [facility] Course: Discharge diagnosis. Abdominal pain mainly in the epigastric region. Gastritis versus Crohn's disease flare. Improving clinically. Nausea vomiting and abdominal pain Anxiety and depression DVT prophylaxis Hospital course Patient is a 28-year-old female with known history of Crohn's disease diagnosed at age 10 came to ER with complaints of abdominal discomfort mainly in the upper abdomen for the past 1 month. Patient says that she had diarrhea about 3 days back. Currently patient denied any bowel movement for the past 3 days. Patient had last colonoscopy 2 months ago without any abnormality.. Patient has been having nausea and vomiting and unable to drink or eat and presented to ER for further evaluation. Denied any fever or chills. No dysuria. No compressive back pain or flank pain. Patient follows with GI physician in [facility]. She's had 4 CT scans of her abdomen in the last 5 months. Patient has been to the ER 3 visits this week for the same thing. Patient states the Reglan did help her yesterday. Patient is being continued on morphine for pain management and nothing by mouth. X-ray of the abdomen showed nonspecific bowel gas pattern Patient was continued on pain management with morphine and nothing by mouth controlled with IV hydration and follow closely. GI has been consulted. Patient will be continued on PPI and otherwise patient did improve clinically with about symptomatic management. Gastroenterology was consulted but patient refuses to take the recommendations from GI and wants to follow-up with her GI physician at [facility]. Otherwise patient did improve symptomatically and alert and oriented 3. Discussed with patient in detail regarding GI follow -up and continue taking her medications. Patient wants to be discharged and says that she will follow with her physician at [facility]. Discharge physical examination was done and vitals reviewed Patient Condition at Discharge: Fair Plan - Discharge Summary New Discharge Prescriptions: Continue Loratadine [Claritin] 10 mg PO HS Lurasidone HCl [Latuda] 60 mg PO HS Dicyclomine [Bentyl] 10 mg PO HS Mirtazapine [Remeron] 15 mg PO HS Omeprazole 40 mg PO HS Ondansetron [Zofran ODT] 4 mg PO Q8HR PRN #10 tab PRN Reason: Nausea Ustekinumab [Stelara] 45 mg SQ Q56D HYDROcodone/APAP 10-325MG [[place] 10-325] 1 tab PO Q6HR PRN PRN Reason: Pain Medroxyprogesterone Acetate [Depo-Provera] 150 mg IM Q90D Metoclopramide HCl [Reglan] 10 mg PO Q6HR PRN #20 tablet PRN Reason: Nausea And Vomiting Amitriptyline HCl 10 mg PO HS Discharge Medication List Loratadine [Claritin] 10 mg PO HS 03/14/17 [History] Dicyclomine [Bentyl] 10 mg PO HS 06/05/17 [History] Lurasidone HCl [Latuda] 60 mg PO HS 06/05/17 [History] Mirtazapine [Remeron] 15 mg PO HS 11/19/17 [History] Omeprazole 40 mg PO HS 11/19/17 [History] Ondansetron [Zofran ODT] 4 mg PO Q8HR PRN #10 tab 12/21/17 [Rx] Ustekinumab [Stelara] 45 mg SQ Q56D 01/04/18 [History] HYDROcodone/APAP 10-325MG [[place] 10-325] 1 tab PO Q6HR PRN 03/10/18 [History] Medroxyprogesterone Acetate [Depo-Provera] 150 mg IM Q90D 03/10/18 [History] Amitriptyline HCl 10 mg PO HS 04/11/18 [History] Metoclopramide HCl [Reglan] 10 mg PO Q6HR PRN #20 tablet 04/11/18 [Rx] Follow up Appointment(s)/Referral(s): Donavan Guzman DO [Primary Care Provider] - 1-2 days Patient Instructions/Handouts: Acute Nausea and Vomiting (ED), Abdominal Pain ( ED) Activity/Diet/Wound Care/Special Instructions: discharge home with family Follow up with your GI specialist at [facility] upon discharge. Last received Morphine 2mg iv at 1:30pm Discharge Disposition: HOME SELF-CARE
== END 2018-04-12 14:05 | disposition home or self-care (01) ==
LOC: EC 17:55 → 6PED 20:19
PROVIDERS: ADMIT Hospitalist; ATTEND Hospitalist
DX: R10.13 Epigastric pain (principal); R11.2 Nausea with vomiting, unspecified; K50.90 Crohn's disease, unspecified, without complications; F41.9 Anxiety disorder, unspecified; F32.9 Major depressive disorder, single episode, unspecified; E66.9 Obesity, unspecified; Z68.29 Body mass index [BMI] 29.0-29.9, adult; Z79.899 Other long term (current) drug therapy; Z88.0 Allergy status to penicillin; Z88.8 Allergy status to other drugs, medicaments and biological substances; Z86.14 Personal history of Methicillin resistant Staphylococcus aureus infection; Z86.19 Personal history of other infectious and parasitic diseases; Z87.19 Personal history of other diseases of the digestive system; Z80.9 Family history of malignant neoplasm, unspecified
CPT/HCPCS: 99285 ×2; 96374 ×2; 96375 ×4; 96361 ×2; 96376; 36415; 80053; 85025; 87040; 74019; G0378 ×2; J2270 ×2; J1200; J2765; J2405

== ENCOUNTER → 2018-05-27 | Outpatient (CLI) | payer OTHER ==
--- NOTE | 2018-05-27 17:43 | US ---
EXAMINATION TYPE: US venous doppler duplex LE DATE OF EXAM: 05/27/2018 5:26 PM COMPARISON: NONE CLINICAL HISTORY: M79.662 Pain in left lower leg, M79.661 Pain in rL. Bilateral ankle and foot swelli ng x 3 months while taking Biologic meds for Crohn's Disease. SIDE PERFORMED: Bilateral TECHNIQUE: The lower extremity deep venous system is examined utilizing real time linear array sonog luis with graded compression, doppler sonography and color-flow sonography. VESSELS IMAGED: Common Femoral Vein Deep Femoral Vein Greater Saphenous Vein * Femoral Vein Popliteal Vein Small Saphenous Vein * Proximal Calf Veins (* superficial vessels) Right Leg: Negative for DVT Left Leg: Negative for DVT IMPRESSION: No evidence of deep venous thrombosis in both legs.
== END | disposition home or self-care (01) ==
LOC: RADUSMAIN 16:56
PROVIDERS: ATTEND Internal Medicine Hematology & Oncology
DX: M79.662 Pain in left lower leg (principal)
CPT/HCPCS: 93970

== ENCOUNTER 2018-12-01 20:23 | Emergency (ER) | payer OTHER ==
[2018-12-01] MEDS ORDERED: SODIUM CHLORIDE 0.9% 1,000 ML IV STA ×2 (20:48)
[2018-12-01 21:19] LABS: Basophils # (A) 0.1 k/uL (0-0.2); Basophils % (A) 1 %; Eosinophils # (A) 0.2 k/uL (0-0.7); Eosinophils % (A) 3 %; HCT 38.2 % (34.0-46.0); HGB 12.8 gm/dL (11.4-16.0); Lymphocytes # (A) 2.9 k/uL (1.0-4.8); Lymphocytes % (A) 39 %; MCHC 33.6 g/dL (31.0-37.0); MCV 86.3 fL (80.0-100.0); Mean Platelet Volume 6.7; Monocytes # (A) 0.4 k/uL (0-1.0); Monocytes % (A) 5 %; Neutrophils # (A) 3.8 k/uL (1.3-7.7); Neutrophils % (A) 51 %; Platelet Count 254 k/uL (150-450); RBC 4.43 m/uL (3.80-5.40); RDW 12.4 % (11.5-15.5); WBC 7.5 k/uL (3.8-10.6)
[2018-12-01 21:27] LABS: Appearance,Urine Cloudy (Clear); Bacteria,Urine Rare /hpf; Bilirubin,Urine Negative (Negative); Blood,Urine Negative (Negative); Color,Urine Yellow; Glucose,Urine (UA) Negative (Negative); Ketones,Urine Negative (Negative); Leukocyte Esterase,Urine Large (Negative); Mucus,Urine Many /hpf; Nitrite,Urine Negative (Negative); Protein,Urine 1+ (Negative); RBC,Urine 10 /hpf (0-5); Specific Gravity,Urine 1.028 (1.001-1.035); Squamous Epithelial Cell,Urine 3 /hpf (0-4); Urobilinogen,Urine <2.0 mg/dL (<2.0); WBC,Urine 51 /hpf (0-5)
[2018-12-01 21:31] LABS: ALT 33 U/L (9-52); AST 19 U/L (14-36); Albumin 4.2 g/dL (3.5-5.0); Alkaline Phosphatase 105 U/L (38-126); Amylase 53 U/L (30-110); Anion Gap 12 mmol/L; Blood Urea Nitrogen 9 mg/dL (7-17); Calcium 9.4 mg/dL (8.4-10.2); Carbon Dioxide 21 mmol/L (22-30); Chloride 107 mmol/L (98-107); Glucose 93 mg/dL (74-99); Lipase 72 U/L (23-300); Potassium 3.3 mmol/L (3.5-5.1); Sodium 140 mmol/L (137-145); Total Bilirubin 0.2 mg/dL (0.2-1.3); Total Protein 7.3 g/dL (6.3-8.2)
[2018-12-01] MEDS ORDERED: HYDROmorphone 1 MG/ML 1 ML SYRINGE IVP STA ×2 (21:31→23:15)
[2018-12-01] MEDS ORDERED: ONDANSETRON 4 MG/2 ML VIAL IVP STA (21:32)
[2018-12-01 21:33] LABS: INR 0.9 (<1.2); Partial Thromboplastin Time 24.7 sec (22.0-30.0); Prothrombin Time 9.7 sec (9.0-12.0)
--- NOTE | 2018-12-01 22:22 | CT ---
EXAM: CT Abdomen and Pelvis With Intravenous Contrast CLINICAL HISTORY: Pain TECHNIQUE: Axial computed tomography images of the abdomen and pelvis with intravenous contrast. CTDI is 0.085, 0.085, 9.1, 7.9 mGy and DLP is 770. 9 mGy-cm. This CT exam was performed using one or more of the following dose reduction techniques: automated exposure control, adjustment of the mA and/or kV according to patient size, and/or use of iterative reconstruction technique. COMPARISON: CT abdomen and pelvis dated 11/19/2017 FINDINGS: Lung bases: Dependent atelectasis. ABDOMEN: Liver: Low-density lesion seen with the inferior aspect of the right hepatic lobe measuring up to 16 mm, which is nonspecific. Gallbladder and bile ducts: Gallbladder is surgically absent. Pancreas: Unremarkable. Spleen: Unremarkable. Adrenals: Unremarkable. Kidneys and ureters: Unremarkable. Stomach and bowel: Evidence of right hemicolectomy. Submucosal fat seen within the distal colon and rectum, which is nonspecific. PELVIS: Appendix: Evidence of prior appendectomy. Bladder: Unremarkable. Reproductive: Unremarkable as visualized. ABDOMEN and PELVIS: Intraperitoneal space: Unremarkable. Bones/joints: No acute fracture. No dislocation. Soft tissues: Unremarkable. Vasculature: Unremarkable. No abdominal aortic aneurysm. Lymph nodes: Unremarkable. IMPRESSION: No acute findings.
[2018-12-01] MEDS ORDERED: cefTRIAXone IN SWFI 1,000 MG/10 ML SYRINGE IVP STA (22:33)
--- NOTE | 2018-12-01 23:19 | ED ---
Abdominal Pain HPI - General Chief Complaint: Abdominal Pain Stated Complaint: Abd pain, Crohn's Time Seen by Provider: 12/01/18 20:39 Source: patient, family, RN notes reviewed, old records reviewed Mode of arrival: ambulatory Limitations: no limitations - History of Present Illness Initial Comments: Patient's 23-year-old female presents today with sudden onset of epigastric abdominal pain. Patient reports that she ate sushi campo and a cookie today. Symptoms started 1 hour prior to arrival. She was doubled over in pain. Brought in by her mother. Has a history of IBS and Crohn's. Multiple abdominal surgeries including colon resection. She mainly follows with physicians at [facility]. Patient reports over the past week she's been having some dysuria. She denies any associated fevers or chills. - Related Data Home Medications Medication Instructions Recorded Confirmed Lurasidone HCl [Latuda] 60 mg PO HS 06/05/17 12/01/18 Ustekinumab [Stelara] 45 mg SQ Q56D 01/04/18 12/01/18 HYDROcodone/APAP 10-325MG [[place] 1 tab PO Q6HR PRN 03/10/18 12/01/18 10-325] Medroxyprogesterone Acetate 150 mg IM Q90D 03/10/18 12/01/18 [Depo-Provera] Amitriptyline HCl 10 mg PO HS 04/11/18 12/01/18 Benztropine Mesylate [Cogentin] 1 mg PO BID 12/01/18 12/01/18 Melatonin 5 mg PO HS PRN 12/01/18 12/01/18 hydrOXYzine PAMOATE [Vistaril] 100 mg PO TID 12/01/18 12/01/18 Previous Rx's Medication Instructions Recorded Nitrofurantoin Monohyd/M-Cryst 100 mg PO Q12HR #14 cap 12/01/18 [Macrobid] Omeprazole [PriLOSEC] 40 mg PO DAILY #20 capsule. 12/01/18 Allergies Allergy/AdvReac Type Severity Reaction Status Date / Time adalimumab [From Humira] Allergy RASH/NAUSEA/VOMITING/JOINT Verified 12/01/18 20:30 PAIN amoxicillin trihydrate Allergy Rash/Hives Verified 12/01/18 20:30 [From Augmentin] potassium clavulanate Allergy Rash/Hives Verified 12/01/18 20:30 [From Augmentin] Review of Systems ROS Statement: Those systems with pertinent positive or pertinent negative responses have been documented in the HPI. ROS Other: All systems not noted in ROS Statement are negative. Past Medical History Past Medical History: No Reported History Additional Past Medical History / Comment(s): crohns, IBD, colitis dx of crohns at age 10. History of Any Multi-Drug Resistant Organisms: MRSA Date of last positivie culture/infection: 2002 MDRO Source:: Hip Past Surgical History: Bowel Resection Additional Past Surgical History / Comment(s): wisdom teeth, bowel resection x 2 in 2017, sepsis after first surgery Past Psychological History: Anxiety, Depression Smoking Status: Never smoker Past Alcohol Use History: Occasional Past Drug Use History: None Reported - Past Family History Mother Family Medical History: Cancer General Exam - General Exam Comments Initial Comments: 23 year old female, moderate distress. Limitations: no limitations Head exam: Present: atraumatic, normocephalic, normal inspection Eye exam: Present: normal appearance, PERRL, EOMI. Absent: scleral icterus, conjunctival injection, periorbital swelling ENT exam: Present: normal exam, mucous membranes moist Neck exam: Present: normal inspection. Absent: tenderness, meningismus, lymphadenopathy Respiratory exam: Present: normal lung sounds bilaterally. Absent: respiratory distress, wheezes, rales, rhonchi, stridor Cardiovascular Exam: Present: regular rate, normal rhythm, normal heart sounds. Absent: systolic murmur, diastolic murmur, rubs, gallop, clicks GI/Abdominal exam: Present: soft, tenderness (epigastric tenderness. ), normal bowel sounds. Absent: distended, guarding, rebound, rigid Extremities exam: Present: normal inspection, full ROM, normal capillary refill. Absent: tenderness, pedal edema, joint swelling, calf tenderness Back exam: Present: normal inspection Neurological exam: Present: alert, oriented X3, CN II-XII intact Psychiatric exam: Present: normal affect, normal mood Skin exam: Present: warm, dry, intact, normal color. Absent: rash Course Vital Signs 12/01/18 12/01/18 20:27 23:48 Temperature 98.2 F 98.0 F Pulse Rate 102 H 78 Respiratory 20 18 Rate Blood Pressure 133/84 118/73 O2 Sat by Pulse 97 98 Oximetry Medical Decision Making - Medical Decision Making 23-year-old female was return of acute epigastric abdominal pain. Patient at this time has growth plates. Bowel sounds are normal. Patient has been given IV fluids and pain medicine. Laboratory obtained. Patient urinalysis is positive for infection with greater than 50 white blood cells. Patient blood work was otherwise unremarkable. Due to patient's significant pain and appea ring in distress on arrival Patient did receive computed tomography scan. There is negative for any acute process. Patient for these results. Discussed following up with PCP and GI doctor. Discussed to be likely a gastric ulcer. Returning Patient with antibiotics for UTI as well as Prilosec for epigastric pain. - Lab Data Result diagrams: 12/01/18 21:05 12/01/18 21:05 Lab Results 12/01/18 12/01/18 12/01/18 Range/Units 21:05 21:05 21:05 WBC 7.5 (3.8-10.6) k/uL RBC 4.43 (3.80-5.40) m/uL Hgb 12.8 (11.4-16.0) gm/dL Hct 38.2 (34.0-46.0) % MCV 86.3 (80.0-100.0) fL MCH 29.0 (25.0-35.0) pg MCHC 33.6 (31.0-37.0) g/dL RDW 12.4 (11.5-15.5) % Plt Count 254 (150-450) k/uL Neutrophils % 51 % Lymphocytes % 39 % Monocytes % 5 % Eosinophils % 3 % Basophils % 1 % Neutrophils # 3.8 (1.3-7.7) k/uL Lymphocytes # 2.9 (1.0-4.8) k/uL Monocytes # 0.4 (0-1.0) k/uL Eosinophils # 0.2 (0-0.7) k/uL Basophils # 0.1 (0-0.2) k/uL PT 9.7 (9.0-12.0) sec INR 0.9 (<1.2) APTT 24.7 (22.0-30.0) sec Sodium 140 (137-145) mmol/L Potassium 3.3 L (3.5-5.1) mmol/L Chloride 107 (98-107) mmol/L Carbon Dioxide 21 L (22-30) mmol/L Anion Gap 12 mmol/L BUN 9 (7-17) mg/dL Creatinine 0.66 (0.52-1.04) mg/dL Est GFR (CKD-EPI)AfAm >90 (>60 ml/min/1.73 sqM) Est GFR (CKD-EPI)NonAf >90 (>60 ml/min/1.73 sqM) Glucose 93 (74-99) mg/dL Calcium 9.4 (8.4-10.2) mg/dL Total Bilirubin 0.2 (0.2-1.3) mg/dL AST 19 (14-36) U/L ALT 33 (9-52) U/L Alkaline Phosphatase 105 (38-126) U/L Total Protein 7.3 (6.3-8.2) g/dL Albumin 4.2 (3.5-5.0) g/dL Amylase 53 (30-110) U/L Lipase 72 (23-300) U/L Urine Color Urine Appearance (Clear) Urine pH (5.0-8.0) Ur Specific [place] (1.001-1.035) Urine Protein (Negative) Urine Glucose (UA) (Negative) Urine Ketones (Negative) Urine Blood (Negative) Urine Nitrite (Negative) Urine Bilirubin (Negative) Urine Urobilinogen (<2.0) mg/dL Ur Leukocyte Esterase (Negative) Urine RBC (0-5) /hpf Urine WBC (0-5) /hpf Ur Squamous Epith Cells (0-4) /hpf Urine Bacteria (None) /hpf Urine Mucus (None) /hpf Urine HCG, Qual (Not Detectd) 12/01/18 12/01/18 Range/Units 21:05 21:05 WBC (3.8-10.6) k/uL RBC (3.80-5.40) m/uL Hgb (11.4-16.0) gm/dL Hct (34.0-46.0) % MCV (80.0-100.0) fL MCH (25.0-35.0) pg MCHC (31.0-37.0) g/dL RDW (11.5-15.5) % Plt Count (150-450) k/uL Neutrophils % % Lymphocytes % % Monocytes % % Eosinophils % % Basophils % % Neutrophils # (1.3-7.7) k/uL Lymphocytes # (1.0-4.8) k/uL Monocytes # (0-1.0) k/uL Eosinophils # (0-0.7) k/uL Basophils # (0-0.2) k/uL PT (9.0-12.0) sec INR (<1.2) APTT (22.0-30.0) sec Sodium (137-145) mmol/L Potassium (3.5-5.1) mmol/L Chloride (98-107) mmol/L Carbon Dioxide (22-30) mmol/L Anion Gap mmol/L BUN (7-17) mg/dL Creatinine (0.52-1.04) mg/dL Est GFR (CKD-EPI)AfAm (>60 ml/min/1.73 sqM) Est GFR (CKD-EPI)NonAf (>60 ml/min/1.73 sqM) Glucose (74-99) mg/dL Calcium (8.4-10.2) mg/dL Total Bilirubin (0.2-1.3) mg/dL AST (14-36) U/L ALT (9-52) U/L Alkaline Phosphatase (38-126) U/L Total Protein (6.3-8.2) g/dL Albumin (3.5-5.0) g/dL Amylase (30-110) U/L Lipase (23-300) U/L Urine Color Yellow Urine Appearance Cloudy H (Clear) Urine pH 6.0 (5.0-8.0) Ur Specific [place] 1.028 (1.001-1.035) Urine Protein 1+ H (Negative) Urine Glucose (UA) Negative (Negative) Urine Ketones Negative (Negative) Urine Blood Negative (Negative) Urine Nitrite Negative (Negative) Urine Bilirubin Negative (Negative) Urine Urobilinogen <2.0 (<2.0) mg/dL Ur Leukocyte Esterase Large H (Negative) Urine RBC 10 H (0-5) /hpf Urine WBC 51 H (0-5) /hpf Ur Squamous Epith Cells 3 (0-4) /hpf Urine Bacteria Rare H (None) /hpf Urine Mucus Many H (None) /hpf Urine HCG, Qual Not Detected (Not Detectd) - Radiology Data Radiology results: report reviewed Normal CT abdomen and pelvis. Disposition Clinical Impression: Epigastric abdominal pain, UTI (urinary tract infection) Disposition: HOME SELF-CARE Condition: Good Instructions (If sedation given, give patient instructions): Abdominal Pain (ED) Additional Instructions: Advised to rest, increase fluid intake. Resume taking Prilosec. Take antibiotics as prescribed. Follow-up with your primary care doctor and GI specialist. Prescriptions: Nitrofurantoin Monohyd/M-Cryst [Macrobid] 100 mg PO Q12HR #14 cap Omeprazole [PriLOSEC] 40 mg PO DAILY #20 capsule.dr Is patient prescribed a controlled substance at d/c from ED?: No Referrals: Donavan Guzman DO [Primary Care Provider] - 1-2 days Time of Disposition: 23:16
[2018-12-01 23:49] VITALS: BP 118/73; PULSE 78; RESP 18; TEMP 98
== END 2018-12-01 23:49 | disposition home or self-care (01) ==
LOC: EC 20:23
DX: N39.0 Urinary tract infection, site not specified (principal); R10.13 Epigastric pain; F41.9 Anxiety disorder, unspecified; F32.9 Major depressive disorder, single episode, unspecified; Z86.14 Personal history of Methicillin resistant Staphylococcus aureus infection; Z90.49 Acquired absence of other specified parts of digestive tract; Z88.1 Allergy status to other antibiotic agents; Z88.8 Allergy status to other drugs, medicaments and biological substances; Z79.3 Long term (current) use of hormonal contraceptives; Z79.899 Other long term (current) drug therapy
CPT/HCPCS: 99285; 96374; 96375 ×2; 96376; 96361 ×3; 36415; 80053; 82150; 83690; 85025; 85610; 85730; 81001; 81025; 74177; J2405; J0696; J1170; Q9967

== ENCOUNTER 2019-03-07 16:42 | Emergency (ER) | payer OTHER ==
[2019-03-07] MEDS ORDERED: methylPREDNISolone SOD SUCCI 125 MG/2 ML VIAL IV STA (17:06)
[2019-03-07] MEDS ORDERED: MORPHINE SULFATE 4 MG/ML SYRINGE IVP STA ×2 (17:06→18:30)
[2019-03-07] MEDS ORDERED: ONDANSETRON 4 MG/2 ML VIAL IVP STA (17:06)
[2019-03-07] MEDS ORDERED: SODIUM CHLORIDE 0.9% 2,000 ML IV ONE (17:06)
--- NOTE | 2019-03-07 17:20 | ED ---
Abdominal Pain HPI - General Chief Complaint: Abdominal Pain Stated Complaint: Crohns Time Seen by Provider: 03/07/19 16:49 Source: patient, family Mode of arrival: ambulatory Limitations: no limitations - History of Present Illness Initial Comments: Patient is a 23-year-old female with a history of Crohn's disease who presents with a chief complaint of abdominal pain. This been going on for about a week however acutely worse starting yesterday. Patient states that she is unable to tolerate her oral medications secondary to nausea and vomiting. She has diarrhea about 3 times a day and states that there is blood and mucus in her stool. They cannot identify any inciting incidences. There are no aggravating or alleviating factors. Timing is constant. - Related Data Home Medications Medication Instructions Recorded Confirmed Ustekinumab [Stelara] 45 mg SQ Q56D 01/04/18 03/07/19 HYDROcodone/APAP 10-325MG [[place] 1 tab PO Q6HR PRN 03/10/18 03/07/19 10-325] Medroxyprogesterone Acetate 150 mg IM Q90D 03/10/18 03/07/19 [Depo-Provera] Amitriptyline HCl 10 mg PO HS 04/11/18 03/07/19 Benztropine Mesylate [Cogentin] 1 mg PO BID 12/01/18 03/07/19 Melatonin 5 mg PO HS PRN 12/01/18 03/07/19 hydrOXYzine PAMOATE [Vistaril] 100 mg PO TID 12/01/18 03/07/19 Lurasidone [Latuda] 80 mg PO HS 03/07/19 03/07/19 Previous Rx's Medication Instructions Recorded Ondansetron Odt [Zofran Odt] 4 mg PO Q8HR PRN #12 tab 03/07/19 predniSONE [Deltasone] 20 mg PO DAILY #12 tablet 03/07/19 Allergies Allergy/AdvReac Type Severity Reaction Status Date / Time adalimumab [From Humira] Allergy RASH/NAUSEA/VOMITING/JOINT Verified 03/07/19 17:24 PAIN amoxicillin trihydrate Allergy Rash/Hives Verified 03/07/19 17:24 [From Augmentin] potassium clavulanate Allergy Rash/Hives Verified 03/07/19 17:24 [From Augmentin] Review of Systems ROS Statement: Those systems with pertinent positive or pertinent negative responses have been documented in the HPI. ROS Other: All systems not noted in ROS Statement are negative. Constitutional: Denies: fever, chills Gastrointestinal: Reports: abdominal pain, nausea, vomiting, diarrhea, hematochezia Past Medical History Past Medical History: No Reported History Additional Past Medical History / Comment(s): crohns, IBD, colitis dx of crohns at age 10. History of Any Multi-Drug Resistant Organisms: MRSA Date of last positivie culture/infection: 2002 MDRO Source:: Hip Past Surgical History: Bowel Resection, Cholecystectomy Additional Past Surgical History / Comment(s): wisdom teeth, bowel resection x 2 in 2017, sepsis after first surgery Past Psychological History: Anxiety, Depression Smoking Status: Never smoker Past Alcohol Use History: Occasional, Rare Past Drug Use History: None Reported - Past Family History Mother Family Medical History: Cancer General Exam Limitations: no limitations General appearance: alert Head exam: Present: atraumatic, normocephalic Eye exam: Present: normal appearance ENT exam: Present: normal exam Neck exam: Present: normal inspection Respiratory exam: Present: normal lung sounds bilaterally. Absent: respiratory distress, wheezes Cardiovascular Exam: Present: regular rate, normal rhythm GI/Abdominal exam: Present: soft, tenderness. Absent: distended Rectal exam: Present: deferred Extremities exam: Present: normal inspection Back exam: Present: normal inspection Neurological exam: Present: alert, oriented X3 Psychiatric exam: Present: normal affect, normal mood Skin exam: Present: warm, dry, intact Course Vital Signs 03/07/19 16:43 Temperature 98.4 F Pulse Rate 72 Respiratory 18 Rate Blood Pressure 116/78 O2 Sat by Pulse 98 Oximetry Medical Decision Making - Medical Decision Making Patient with history of Crohn's disease presents with chief complaint of abdominal pain, nausea and vomiting, diarrhea. On initial evaluation, vitals are stable, patient is no acute distress. Patient to be evaluated with basic labs including liver profile and lipase, she'll be sent for a computed tomography scan of the abdomen and pelvis. She was given morphine, fluids, Zofran, and Solu-Medrol. 6:34 PM Patient is patient is unremarkable, no evidence of infection seen on laboratory urinalysis shows no evidence of urinary tract infection. X-rays are within normal limits, kidney function is adequate. Computed tomography scan of the abdomen and pelvis shows evidence of enterocolitis insistent with Crohn's flare. There is no evidence of abscess or free air. On reevaluation, the patient is feeling better. Patient given a by mouth challenge. Plan for discharge with a steroid burst, and nausea medication. Patient states that she has pain medic ation available to her at home. Patient was instructed to follow-up with GI and primary care in 1-2 days, return to the ED if symptoms worsen or change. - Lab Data Result diagrams: 03/07/19 17:23 03/07/19 17:23 Lab Results 03/07/19 03/07/19 03/07/19 Range/Units 17:23 17:23 17:23 WBC 5.9 (3.8-10.6) k/uL RBC 4.19 (3.80-5.40) m/uL Hgb 12.7 (11.4-16.0) gm/dL Hct 37.3 (34.0-46.0) % MCV 89.1 (80.0-100.0) fL MCH 30.2 (25.0-35.0) pg MCHC 33.9 (31.0-37.0) g/dL RDW 13.4 (11.5-15.5) % Plt Count 211 (150-450) k/uL Neutrophils % 49 % Lymphocytes % 39 % Monocytes % 6 % Eosinophils % 3 % Basophils % 1 % Neutrophils # 2.9 (1.3-7.7) k/uL Lymphocytes # 2.3 (1.0-4.8) k/uL Monocytes # 0.4 (0-1.0) k/uL Eosinophils # 0.2 (0-0.7) k/uL Basophils # 0.0 (0-0.2) k/uL Sodium 138 (137-145) mmol/L Potassium 4.3 (3.5-5.1) mmol/L Chloride 109 H (98-107) mmol/L Carbon Dioxide 19 L (22-30) mmol/L Anion Gap 10 mmol/L BUN 9 (7-17) mg/dL Creatinine 0.67 (0.52-1.04) mg/dL Est GFR (CKD-EPI)AfAm >90 (>60 ml/min/1.73 sqM) Est GFR (CKD-EPI)NonAf >90 (>60 ml/min/1.73 sqM) Glucose 85 (74-99) mg/dL Calcium 8.9 (8.4-10.2) mg/dL Total Bilirubin 0.3 (0.2-1.3) mg/dL AST 23 (14-36) U/L ALT 19 (9-52) U/L Alkaline Phosphatase 79 (38-126) U/L Total Protein 7.1 (6.3-8.2) g/dL Albumin 4.1 (3.5-5.0) g/dL Lipase 71 (23-300) U/L Urine Color Urine Appearance (Clear) Urine pH (5.0-8.0) Ur Specific [place] (1.001-1.035) Urine Protein (Negative) Urine Glucose (UA) (Negative) Urine Ketones (Negative) Urine Blood (Negative) Urine Nitrite (Negative) Urine Bilirubin (Negative) Urine Urobilinogen (<2.0) mg/dL Ur Leukocyte Esterase (Negative) Urine RBC (0-5) /hpf Urine WBC (0-5) /hpf Ur Squamous Epith Cells (0-4) /hpf Urine Mucus (None) /hpf Urine HCG, Qual Not Detected (Not Detectd) 03/07/19 Range/Units 17:23 WBC (3.8-10.6) k/uL RBC (3.80-5.40) m/uL Hgb (11.4-16.0) gm/dL Hct (34.0-46.0) % MCV (80.0-100.0) fL MCH (25.0-35.0) pg MCHC (31.0-37.0) g/dL RDW (11.5-15.5) % Plt Count (150-450) k/uL Neutrophils % % Lymphocytes % % Monocytes % % Eosinophils % % Basophils % % Neutrophils # (1.3-7.7) k/uL Lymphocytes # (1.0-4.8) k/uL Monocytes # (0-1.0) k/uL Eosinophils # (0-0.7) k/uL Basophils # (0-0.2) k/uL Sodium (137-145) mmol/L Potassium (3.5-5.1) mmol/L Chloride (98-107) mmol/L Carbon Dioxide (22-30) mmol/L Anion Gap mmol/L BUN (7-17) mg/dL Creatinine (0.52-1.04) mg/dL Est GFR (CKD-EPI)AfAm (>60 ml/min/1.73 sqM) Est GFR (CKD-EPI)NonAf (>60 ml/min/1.73 sqM) Glucose (74-99) mg/dL Calcium (8.4-10.2) mg/dL Total Bilirubin (0.2-1.3) mg/dL AST (14-36) U/L ALT (9-52) U/L Alkaline Phosphatase (38-126) U/L Total Protein (6.3-8.2) g/dL Albumin (3.5-5.0) g/dL Lipase (23-300) U/L Urine Color Yellow Urine Appearance Clear (Clear) Urine pH 5.5 (5.0-8.0) Ur Specific [place] 1.028 (1.001-1.035) Urine Protein Negative (Negative) Urine Glucose (UA) Negative (Negative) Urine Ketones Negative (Negative) Urine Blood Trace H (Negative) Urine Nitrite Negative (Negative) Urine Bilirubin Negative (Negative) Urine Urobilinogen <2.0 (<2.0) mg/dL Ur Leukocyte Esterase Negative (Negative) Urine RBC 1 (0-5) /hpf Urine WBC 2 (0-5) /hpf Ur Squamous Epith Cells <1 (0-4) /hpf Urine Mucus Few H (None) /hpf Urine HCG, Qual (Not Detectd) Disposition Clinical Impression: Crohn's colitis, Nausea and vomiting Disposition: HOME SELF-CARE Condition: Good Prescriptions: predniSONE [Deltasone] 20 mg PO DAILY #12 tablet Ondansetron Odt [Zofran Odt] 4 mg PO Q8HR PRN #12 tab PRN Reason: Nausea Is patient prescribed a controlled substance at d/c from ED?: No Referrals: Donavan Guzman DO [Primary Care Provider] - 1-2 days
[2019-03-07 17:44] LABS: Appearance,Urine Clear (Clear); Basophils % (A) 1 %; Bilirubin,Urine Negative (Negative); Blood,Urine Trace (Negative); Color,Urine Yellow; Eosinophils # (A) 0.2 k/uL (0-0.7); Eosinophils % (A) 3 %; Glucose,Urine (UA) Negative (Negative); HCT 37.3 % (34.0-46.0); HGB 12.7 gm/dL (11.4-16.0); Ketones,Urine Negative (Negative); Leukocyte Esterase,Urine Negative (Negative); Lymphocytes # (A) 2.3 k/uL (1.0-4.8); Lymphocytes % (A) 39 %; MCH 30.2 pg (25.0-35.0); MCHC 33.9 g/dL (31.0-37.0); MCV 89.1 fL (80.0-100.0); Mean Platelet Volume 7.6; Monocytes # (A) 0.4 k/uL (0-1.0); Monocytes % (A) 6 %; Mucus,Urine Few /hpf; Neutrophils # (A) 2.9 k/uL (1.3-7.7); Neutrophils % (A) 49 %; Nitrite,Urine Negative (Negative); PH, Urine 5.5 (5.0-8.0); Platelet Count 211 k/uL (150-450); Protein,Urine Negative (Negative); RBC 4.19 m/uL (3.80-5.40); RBC,Urine 1 /hpf (0-5); RDW 13.4 % (11.5-15.5); Specific Gravity,Urine 1.028 (1.001-1.035); Squamous Epithelial Cell,Urine <1 /hpf (0-4); Urobilinogen,Urine <2.0 mg/dL (<2.0); WBC 5.9 k/uL (3.8-10.6); WBC,Urine 2 /hpf (0-5)
[2019-03-07 17:50] LABS: ALT 19 U/L (9-52); AST 23 U/L (14-36); African American GFR (CKD) >90 (>60 ml/min/1.73 sqM); Albumin 4.1 g/dL (3.5-5.0); Alkaline Phosphatase 79 U/L (38-126); Anion Gap 10 mmol/L; Blood Urea Nitrogen 9 mg/dL (7-17); Calcium 8.9 mg/dL (8.4-10.2); Carbon Dioxide 19 mmol/L (22-30); Chloride 109 mmol/L (98-107); Glucose 85 mg/dL (74-99); Lipase 71 U/L (23-300); Potassium 4.3 mmol/L (3.5-5.1); Sodium 138 mmol/L (137-145); Total Bilirubin 0.3 mg/dL (0.2-1.3); Total Protein 7.1 g/dL (6.3-8.2)
--- NOTE | 2019-03-07 18:13 | CT ---
EXAMINATION TYPE: CT abdomen pelvis w con DATE OF EXAM: 03/07/2019 HISTORY: Lower abdominal pain. History of Crohn's Disease. CT DLP: 802.2mGycm Automated Exposure Control for Dose Reduction was Utilized. CONTRAST: CT scan of the abdomen and pelvis is performed without oral but with IV Contrast, patient injected wi th 100ml mL of Isovue 300. COMPARISON: CT abdomen and pelvis December 01, 2018 FINDINGS: LUNG BASES: Stable tiny pericardial effusion axial image 10 right inferior aspect. LIVER/GB: Gallbladder is not seen and presumed surgically absent. Roughly 1.7 cm low-density lesion i nferior right hepatic lobe with slight central filling favors small hemangioma but is nonspecific. It is stable in size from prior. PANCREAS: No significant abnormality is seen. SPLEEN: No significant abnormality is seen. ADRENALS: No significant abnormality is seen. KIDNEYS: No significant abnormality is seen. BOWEL: Evaluation of bowel is suboptimal secondary to lack of enteric contrast. Stomach is not greatl y distended. There is no suspicious small or large bowel dilatation. There are surgical sutures from right-sided hemicolectomy and the side bowel anastomosis with neoterminal ileum. Mild wall thickening is present at this level coronal image 25. Mild wall thickening in the sigmoid rectal colon is seen. Small bowel loops in the left abdomen show mild wall thickening. Differential includes product of po or distention versus enteritis/colitis. UTERUS/ADNEXA: No gross abnormality seen. LYMPH NODES: No greater than 1cm abdominal or pelvic lymph nodes are appreciated. OSSEOUS STRUCTURES: No significant abnormality is seen. OTHER: No significant additional abnormality is seen. IMPRESSION: Suboptimal study cannot exclude multifocal mild uncomplicated acute enterocolitis includi ng involvement of the neoterminal ileum. Correlate clinically.
[2019-03-07 19:21] VITALS: BP 116/69; PULSE 74; RESP 17; TEMP 98
== END 2019-03-07 19:46 | disposition home or self-care (01) ==
LOC: EC 16:42
DX: K50.10 Crohn's disease of large intestine without complications (principal); R11.2 Nausea with vomiting, unspecified; F32.9 Major depressive disorder, single episode, unspecified; Z79.899 Other long term (current) drug therapy; Z88.0 Allergy status to penicillin; Z88.8 Allergy status to other drugs, medicaments and biological substances
CPT/HCPCS: 36415; 80053; 83690; 85025; 81001; 81025; 74177; 99284; 96374; 96375 ×2; 96376; 96361 ×2; J2270; J2930; J2405; Q9967

== ENCOUNTER 2019-04-15 16:51 | Emergency (ER) | payer OTHER ==
[2019-04-15] MEDS ORDERED: SODIUM CHLORIDE 0.9% 500 ML 500 ML IV STA (17:15)
[2019-04-15] MEDS ORDERED: MORPHINE SULFATE 4 MG/ML SYRINGE IV STA (17:15)
[2019-04-15] MEDS ORDERED: SODIUM CHLORIDE 0.9% 1,000 ML IV STA ×2 (17:15)
[2019-04-15] MEDS ORDERED: ONDANSETRON 4 MG/2 ML VIAL IVP STA (17:15)
[2019-04-15] MEDS ORDERED: PANTOPRAZOLE 40 MG/10 ML VIAL IVP STA (17:15)
[2019-04-15] MEDS ORDERED: DIAZEPAM 5 MG/ML 2 ML INJ IVP STA (17:16)
[2019-04-15 18:02] LABS: Basophils # (A) 0.1 k/uL (0-0.2); Basophils % (A) 1 %; Eosinophils # (A) 0.2 k/uL (0-0.7); Eosinophils % (A) 3 %; HCT 42.5 % (34.0-46.0); HGB 14.1 gm/dL (11.4-16.0); Lymphocytes # (A) 2.6 k/uL (1.0-4.8); Lymphocytes % (A) 43 %; MCH 29.8 pg (25.0-35.0); MCHC 33.1 g/dL (31.0-37.0); Mean Platelet Volume 6.8; Monocytes # (A) 0.3 k/uL (0-1.0); Monocytes % (A) 5 %; Neutrophils # (A) 2.8 k/uL (1.3-7.7); Neutrophils % (A) 47 %; Platelet Count 272 k/uL (150-450); RBC 4.73 m/uL (3.80-5.40); RDW 12.3 % (11.5-15.5)
[2019-04-15 18:09] LABS: ALT 29 U/L (9-52); AST 27 U/L (14-36); African American GFR (CKD) >90 (>60 ml/min/1.73 sqM); Albumin 4.6 g/dL (3.5-5.0); Alkaline Phosphatase 79 U/L (38-126); Amylase 68 U/L (30-110); Anion Gap 13 mmol/L; Blood Urea Nitrogen 6 mg/dL (7-17); Calcium 9.7 mg/dL (8.4-10.2); Carbon Dioxide 23 mmol/L (22-30); Chloride 106 mmol/L (98-107); Creatine Kinase 102 U/L (30-135); Glucose 82 mg/dL (74-99); Magnesium 2.3 mg/dL (1.6-2.3); Phosphorus 4.4 mg/dL (2.5-4.5); Potassium 3.9 mmol/L (3.5-5.1); Sodium 142 mmol/L (137-145); Total Bilirubin 0.2 mg/dL (0.2-1.3)
--- NOTE | 2019-04-15 18:45 | ED ---
Abdominal Pain HPI - General Chief Complaint: Abdominal Pain Stated Complaint: Crohns flare up Time Seen by Provider: 04/15/19 17:04 Source: patient, RN notes reviewed, old records reviewed Mode of arrival: ambulatory Limitations: no limitations - History of Present Illness Initial Comments: This is a 23-year-old female the ER for evaluation. Patient resents today for evaluation regards to history of colitis) disease and Crohn's pain. Abdominal pain severe. Patient's going to multiple medication treatments multiple resection secondary to Crohn's. Hasn't slept in today secondary to severe pain is taking and tolerating pain medication at home is no help. Denies fevers. Bowel movements are her bowel movements are always loose. Patient is GI scheduled for colonoscopy in 2 weeks MD Complaint: abdominal pain -: days(s) Location: diffuse, LUQ, epigastric, suprapubic Radiation: LUQ Severity: severe Severity scale (1-10): 10 Quality: cramping, stabbing, aching, fullness Consistency: constant Improves With: nothing Worsens With: nothing Associated Symptoms: nausea, vomiting, diarrhea Treatments Prior to Arrival: prescription analgesics - Related Data Home Medications Medication Instructions Recorded Confirmed Ustekinumab [Stelara] 45 mg SQ Q56D 01/04/18 04/15/19 Medroxyprogesterone Acetate 150 mg IM Q90D 03/10/18 04/15/19 [Depo-Provera] Amitriptyline HCl 20 mg PO HS 04/11/18 04/15/19 Benztropine Mesylate [Cogentin] 1.5 mg PO BID 12/01/18 04/15/19 Melatonin 10 mg PO HS PRN 12/01/18 04/15/19 hydrOXYzine PAMOATE [Vistaril] 100 mg PO TID 12/01/18 04/15/19 Lurasidone [Latuda] 80 mg PO HS 03/07/19 04/15/19 Vitamin C/Biotin [Hair, Skin and 1 tab PO DAILY 04/15/19 04/15/19 Nails] oxyCODONE HCL/ACETAMINOPHEN 1 tab PO Q4HR PRN 04/15/19 04/15/19 [Percocet 10-325 mg] Previous Rx's Medication Instructions Recorded Ondansetron Odt [Zofran Odt] 4 mg PO Q8HR PRN #12 tab 03/07/19 Allergies Allergy/AdvReac Type Severity Reaction Status Date / Time adalimumab [From Humira] Allergy RASH/NAUSEA/VOMITING/JOINT Verified 04/15/19 18:32 PAIN amoxicillin trihydrate Allergy Rash/Hives Verified 04/15/19 18:32 [From Augmentin] potassium clavulanate Allergy Rash/Hives Verified 04/15/19 18:32 [From Augmentin] Review of Systems ROS Statement: Those systems with pertinent positive or pertinent negative responses have been documented in the HPI. ROS Other: All systems not noted in ROS Statement are negative. Past Medical History Past Medical History: No Reported History Additional Past Medical History / Comment(s): crohns, IBD, colitis dx of crohns at age 10. History of Any Multi-Drug Resistant Organisms: MRSA Date of last positivie culture/infection: 2002 MDRO Source:: Hip Past Surgical History: Bowel Resection, Cholecystectomy Additional Past Surgical History / Comment(s): wisdom teeth, bowel resection x 2 in 2017, sepsis after first surgery Past Psychological History: Anxiety, Depression Smoking Status: Never smoker Past Alcohol Use History: Occasional, Rare Past Drug Use History: None Reported - Past Family History Mother Family Medical History: Cancer General Exam Limitations: no limitations General appearance: alert, in no apparent distress Head exam: Present: atraumatic, normocephalic, normal inspection Eye exam: Present: normal appearance, PERRL, EOMI. Absent: scleral icterus, conjunctival injection, periorbital swelling ENT exam: Present: normal exam, mucous membranes moist Neck exam: Present: normal inspection. Absent: tenderness, meningismus, lymphadenopathy Respiratory exam: Present: normal lung sounds bilaterally. Absent: respiratory distress, wheezes, rales, rhonchi, stridor Cardiovascular Exam: Present: regular rate, normal rhythm, normal heart sounds. Absent: systolic murmur, diastolic murmur, rubs, gallop, clicks GI/Abdominal exam: Present: soft, tenderness (Patient does have significant left sided abdominal tenderness), normal bowel sounds. Absent: distended, guarding, rebound, rigid Extremities exam: Present: normal inspection, full ROM, normal capillary refill. Absent: tenderness, pedal edema, joint swelling, calf tenderness Back exam: Present: normal inspection Neurological exam: Present: alert, oriented X3, CN II-XII intact Psychiatric exam: Present: normal affect, normal mood Skin exam: Present: warm, dry, intact, normal color. Absent: rash Course Vital Signs 04/15/19 17:00 Temperature 98.4 F Pulse Rate 74 Respiratory 20 Rate Blood Pressure 114/73 O2 Sat by Pulse 99 Oximetry - Reevaluation(s) Reevaluation #1: 04/15/19 18:44 Medical records reviewed Reevaluation #2: 04/15/19 18:44 Pain is controlled Medical Decision Making - Medical Decision Making 23 female the ER for evaluation resents today for evaluation of severe Crohn's and Crohn's colitis. X-ray showed no structural lab values are within normal limits pain is controlled patient can be discharged - Lab Data Result diagrams: 04/15/19 17:50 04/15/19 17:50 Lab Results 04/15/19 04/15/19 04/15/19 Range/Units 17:50 17:50 17:50 WBC 6.0 (3.8-10.6) k/uL RBC 4.73 (3.80-5.40) m/uL Hgb 14.1 (11.4-16.0) gm/dL Hct 42.5 (34.0-46.0) % MCV 90.0 (80.0-100.0) fL MCH 29.8 (25.0-35.0) pg MCHC 33.1 (31.0-37.0) g/dL RDW 12.3 (11.5-15.5) % Plt Count 272 (150-450) k/uL Neutrophils % 47 % Lymphocytes % 43 % Monocytes % 5 % Eosinophils % 3 % Basophils % 1 % Neutrophils # 2.8 (1.3-7.7) k/uL Lymphocytes # 2.6 (1.0-4.8) k/uL Monocytes # 0.3 (0-1.0) k/uL Eosinophils # 0.2 (0-0.7) k/uL Basophils # 0.1 (0-0.2) k/uL Sodium 142 (137-145) mmol/L Potassium 3.9 (3.5-5.1) mmol/L Chloride 106 (98-107) mmol/L Carbon Dioxide 23 (22-30) mmol/L Anion Gap 13 mmol/L BUN 6 L (7-17) mg/dL Creatinine 0.59 (0.52-1.04) mg/dL Est GFR (CKD-EPI)AfAm >90 (>60 ml/min/1.73 sqM) Est GFR (CKD-EPI)NonAf >90 (>60 ml/min/1.73 sqM) Glucose 82 (74-99) mg/dL Plasma Lactic Acid Rehan 1.2 (0.7-2.0) mmol/L Calcium 9.7 (8.4-10.2) mg/dL Phosphorus 4.4 (2.5-4.5) mg/dL Magnesium 2.3 (1.6-2.3) mg/dL Total Bilirubin 0.2 (0.2-1.3) mg/dL AST 27 (14-36) U/L ALT 29 (9-52) U/L Alkaline Phosphatase 79 (38-126) U/L Creatine Kinase 102 (30-135) U/L Total Protein 8.0 (6.3-8.2) g/dL Albumin 4.6 (3.5-5.0) g/dL Amylase 68 (30-110) U/L Lipase 108 (23-300) U/L - Radiology Data Radiology results: report reviewed (X-ray and ulcers chest x-rays negative for acute disease), image reviewed Disposition Clinical Impression: Intractable vomiting with nausea, Nausea and vomiting, Abdominal pain Disposition: HOME SELF-CARE Condition: Fair Instructions (If sedation given, give patient instructions): Abdominal Pain (ED) Is patient prescribed a controlled substance at d/c from ED?: No Referrals: Donavan Guzman DO [Primary Care Provider] - 1-2 days
[2019-04-15 19:01] LABS: Appearance,Urine Clear (Clear); Bacteria,Urine Rare /hpf; Bilirubin,Urine Negative (Negative); Blood,Urine Negative (Negative); Color,Urine Light Yellow; Glucose,Urine (UA) Negative (Negative); Ketones,Urine Negative (Negative); Leukocyte Esterase,Urine Large (Negative); Nitrite,Urine Negative (Negative); PH, Urine 6.5 (5.0-8.0); Protein,Urine Negative (Negative); RBC,Urine 1 /hpf (0-5); Specific Gravity,Urine 1.006 (1.001-1.035); Squamous Epithelial Cell,Urine 3 /hpf (0-4); Urobilinogen,Urine <2.0 mg/dL (<2.0); WBC,Urine 28 /hpf (0-5)
--- NOTE | 2019-04-15 19:09 | XR ---
EXAMINATION TYPE: XR abdomen acute w cxr DATE OF EXAM: 04/15/2019 COMPARISON: 04/11/2018 HISTORY: Abdominal pain TECHNIQUE: Chest x-ray and supine and upright abdomen FINDINGS: Heart and mediastinum are normal. Lungs are clear. Diaphragm is normal. Bony thorax appears normal. B owel gas pattern is normal. There is no sign of intestinal obstruction or pneumoperitoneum. There are surgical clips in the right mid abdomen. There are no pathologic calcifications over the kidneys. IMPRESSION: Nonacute abdomen. Normal chest. No change.
[2019-04-15] MEDS ORDERED: HYDROmorphone 0.5 MG/0.5 ML SYRINGE IVP STA (20:10)
[2019-04-15 20:32] VITALS: BP 111/68; PULSE 90; RESP 18; TEMP 98.2
== END 2019-04-15 20:28 | disposition home or self-care (01) ==
LOC: EC 16:51
DX: R11.2 Nausea with vomiting, unspecified (principal); R10.84 Generalized abdominal pain; R10.13 Epigastric pain; R10.12 Left upper quadrant pain; R10.30 Lower abdominal pain, unspecified; K50.90 Crohn's disease, unspecified, without complications; F32.9 Major depressive disorder, single episode, unspecified; Z79.899 Other long term (current) drug therapy; Z88.0 Allergy status to penicillin; Z88.1 Allergy status to other antibiotic agents; Z88.8 Allergy status to other drugs, medicaments and biological substances; Z90.49 Acquired absence of other specified parts of digestive tract
CPT/HCPCS: 36415; 80053; 82150; 82550; 83605; 83690; 83735; 84100; 85025; 81001; 74022; 99284; 96374; 96375 ×4; 96361 ×2; J2270; J3360; J2405; C9113; J1170

== ENCOUNTER 2019-05-28 22:17 | Emergency (ER) | payer MEDICARE, OTHER ==
[2019-05-28 22:31] VITALS: TEMP 98.1
[2019-05-28] MEDS ORDERED: ONDANSETRON 4 MG/2 ML VIAL IVP STA (23:56)
[2019-05-28] MEDS ORDERED: SODIUM CHLORIDE 0.9% 1,000 ML IV STA (23:56)
[2019-05-28] MEDS ORDERED: HYDROmorphone 1 MG/ML 1 ML SYRINGE IVP STA (23:56)
--- NOTE | 2019-05-29 00:23 | XR ---
EXAMINATION TYPE: XR KUB DATE OF EXAM: 05/29/2019 COMPARISON: 04/15/2019 HISTORY: Abdominal pain TECHNIQUE: 2 views upright FINDINGS: There is no sign of intestinal obstruction or pneumoperitoneum. Fecal pattern is normal. Lazara ng bases are clear. There are no pathologic calcifications. IMPRESSION: Nonacute abdomen. No change.
[2019-05-29 00:35] LABS: Basophils % (A) 1 %; Eosinophils # (A) 0.2 k/uL (0-0.7); Eosinophils % (A) 3 %; HCT 41.3 % (34.0-46.0); Lymphocytes # (A) 3.3 k/uL (1.0-4.8); Lymphocytes % (A) 44 %; MCH 30.6 pg (25.0-35.0); Mean Platelet Volume 6.5; Monocytes # (A) 0.4 k/uL (0-1.0); Monocytes % (A) 5 %; Neutrophils # (A) 3.4 k/uL (1.3-7.7); Neutrophils % (A) 45 %; Platelet Count 248 k/uL (150-450); RBC 4.59 m/uL (3.80-5.40); RDW 11.9 % (11.5-15.5); WBC 7.6 k/uL (3.8-10.6)
[2019-05-29 00:43] LABS: Appearance,Urine Cloudy (Clear); Bacteria,Urine Rare /hpf; Bilirubin,Urine Negative (Negative); Blood,Urine Negative (Negative); Color,Urine Yellow; Glucose,Urine (UA) Negative (Negative); Ketones,Urine Negative (Negative); Leukocyte Esterase,Urine Large (Negative); Mucus,Urine Moderate /hpf; Nitrite,Urine Negative (Negative); Protein,Urine 1+ (Negative); RBC,Urine 7 /hpf (0-5); Specific Gravity,Urine 1.034 (1.001-1.035); Squamous Epithelial Cell,Urine 5 /hpf (0-4); Urobilinogen,Urine <2.0 mg/dL (<2.0); WBC,Urine 16 /hpf (0-5)
--- NOTE | 2019-05-29 00:50 | ED ---
Abdominal Pain HPI - General Chief Complaint: Abdominal Pain Stated Complaint: crohns/uti Time Seen by Provider: 05/28/19 23:25 Source: patient Mode of arrival: ambulatory Limitations: no limitations - History of Present Illness Initial Comments: 24-year-old female patient with past medical history significant for Crohn's disease presents to the emergency department today for evaluation of increasing abdominal pain. Patient states she's been having a Crohn's flare since . States she is taking her Stelara as directed. States she is having some diarrhea. She denies any hematochezia or melena. States she has had some nausea but no vomiting. States she is currently being treated for urinary tract infection with Flagyl. She denies any fever or chills. States she does take Percocet for pain at home but doesn't seem to be helping. She denies any chance of . Patient denies any recent rash, shortness breath, chest pain, back pain, numbness, tingling, dizziness, weakness, hematuria, dysuria, urinary urgency, urinary frequency, headache, visual changes, or any other complaints. - Related Data Home Medications Medication Instructions Recorded Confirmed Ustekinumab [Stelara] 45 mg SQ Q56D 01/04/18 04/15/19 Medroxyprogesterone Acetate 150 mg IM Q90D 03/10/18 04/15/19 [Depo-Provera] Amitriptyline HCl 20 mg PO HS 04/11/18 04/15/19 Benztropine Mesylate [Cogentin] 1.5 mg PO BID 12/01/18 04/15/19 Melatonin 10 mg PO HS PRN 12/01/18 04/15/19 hydrOXYzine PAMOATE [Vistaril] 100 mg PO TID 12/01/18 04/15/19 Lurasidone [Latuda] 80 mg PO HS 03/07/19 04/15/19 Vitamin C/Biotin [Hair, Skin and 1 tab PO DAILY 04/15/19 04/15/19 Nails] oxyCODONE HCL/ACETAMINOPHEN 1 tab PO Q4HR PRN 04/15/19 04/15/19 [Percocet 10-325 mg] Previous Rx's Medication Instructions Recorded Ondansetron Odt [Zofran Odt] 4 mg PO Q8HR PRN #12 tab 03/07/19 Diazepam [Valium] 10 mg PO Q6H PRN 3 Days #12 tab 04/15/19 Cephalexin [Keflex] 500 mg PO Q6H #28 cap 05/29/19 Diazepam [Valium] 5 mg PO TID PRN 3 Days #9 tab 05/29/19 Allergies Allergy/AdvReac Type Severity Reaction Status Date / Time adalimumab [From Humira] Allergy RASH/NAUSEA/VOMITING/JOINT Verified 05/28/19 22:30 PAIN amoxicillin trihydrate Allergy Rash/Hives Verified 05/28/19 22:30 [From Augmentin] potassium clavulanate Allergy Rash/Hives Verified 05/28/19 22:30 [From Augmentin] Review of Systems ROS Statement: Those systems with pertinent positive or pertinent negative responses have been documented in the HPI. ROS Other: All systems not noted in ROS Statement are negative. Past Medical History Past Medical History: No Reported History Additional Past Medical History / Comment(s): crohns, IBD, colitis dx of crohns at age 10. History of Any Multi-Drug Resistant Organisms: MRSA Date of last positivie culture/infection: 2002 MDRO Source:: Hip Past Surgical History: Bowel Resection, Cholecystectomy Additional Past Surgical History / Comment(s): wisdom teeth, bowel resection x 2 in 2017, sepsis after first surgery Past Psychological History: Anxiety, Depression Smoking Status: Never smoker Past Alcohol Use History: Occasional, Rare Past Drug Use History: None Reported - Past Family History Mother Family Medical History: Cancer General Exam Limitations: no limitations General appearance: alert, in no apparent distress, other (This is a well- developed, well-nourished adult female patient in no acute distress. Vital signs upon presentation are temperature 98.1F, pulse 90, respirations 18, blood pressure 110/78, pulse ox 98% on room air.) Eye exam: Present: normal appearance, PERRL, EOMI. Absent: scleral icterus, conjunctival injection, periorbital swelling ENT exam: Present: normal exam, normal oropharynx, mucous membranes moist Respiratory exam: Present: normal lung sounds bilaterally. Absent: respiratory distress, wheezes, rales, rhonchi, stridor Cardiovascular Exam: Present: regular rate, normal rhythm, normal heart sounds. Absent: systolic murmur, diastolic murmur, rubs, gallop, clicks GI/Abdominal exam: Present: soft, tenderness (Generalized tenderness), normal bowel sounds. Absent: distended, guarding, rebound, rigid Neurological exam: Present: alert, oriented X3, CN II-XII intact Psychiatric exam: Present: normal affect, normal mood Skin exam: Present: warm, dry, intact, normal color. Absent: rash Course Vital Signs 05/28/19 05/29/19 22:27 02:49 Temperature 98.1 F Pulse Rate 90 80 Respiratory 18 16 Rate Blood Pressure 110/78 106/73 O2 Sat by Pulse 98 97 Oximetry Medical Decision Making - Medical Decision Making 24-year-old female patient presents to the emergency department today for evaluation of abdominal pain. She does have a history of Crohn's disease and states this is consistent with her usual Crohn's flares. She denies any hematochezia or melena. She is afebrile. She is taking the Holly currently. She is currently being treated for UTI with Flagyl. Labs reviewed and are unremarkable. ESR and CRP are negative. X-ray of the abdomen is unremarkable. She has normal white blood cell count. We did discuss results and findings. Patient still has evidence for UTI, we will change her antibiotic to Keflex. I did discuss admission for intractable pain, she declined stating she would rather go home. She'll be given another dose of pain medication and discharge to follow-up with her GI specialist for further evaluation. She is instructed to follow-up with her primary care physician for recheck in 1-2 days. Return parameters were discussed in detail. She verbalizes understanding and agrees with this plan. - Lab Data Result diagrams: 05/28/19 23:41 05/28/19 23:41 Lab Results 05/28/19 05/28/19 05/28/19 Range/Units 23:41 23:41 23:41 WBC 7.6 (3.8-10.6) k/uL RBC 4.59 (3.80-5.40) m/uL Hgb 14.0 (11.4-16.0) gm/dL Hct 41.3 (34.0-46.0) % MCV 90.0 (80.0-100.0) fL MCH 30.6 (25.0-35.0) pg MCHC 34.0 (31.0-37.0) g/dL RDW 11.9 (11.5-15.5) % Plt Count 248 (150-450) k/uL Neutrophils % 45 % Lymphocytes % 44 % Monocytes % 5 % Eosinophils % 3 % Basophils % 1 % Neutrophils # 3.4 (1.3-7.7) k/uL Lymphocytes # 3.3 (1.0-4.8) k/uL Monocytes # 0.4 (0-1.0) k/uL Eosinophils # 0.2 (0-0.7) k/uL Basophils # 0.0 (0-0.2) k/uL ESR 8 (0-20) mm/hr Sodium 137 (137-145) mmol/L Potassium 4.0 (3.5-5.1) mmol/L Chloride 102 (98-107) mmol/L Carbon Dioxide 22 (22-30) mmol/L Anion Gap 13 mmol/L BUN 9 (7-17) mg/dL Creatinine 0.82 (0.52-1.04) mg/dL Est GFR (CKD-EPI)AfAm >90 (>60 ml/min/1.73 sqM) Est GFR (CKD-EPI)NonAf >90 (>60 ml/min/1.73 sqM) Glucose 72 L (74-99) mg/dL Plasma Lactic Acid Rehan 1.5 (0.7-2.0) mmol/L Calcium 9.3 (8.4-10.2) mg/dL Total Bilirubin 0.7 (0.2-1.3) mg/dL AST 73 H (14-36) U/L ALT <6 L (9-52) U/L Alkaline Phosphatase 97 (38-126) U/L C-Reactive Protein <5.0 (<10.0) mg/L Total Protein 9.1 H (6.3-8.2) g/dL Albumin 5.0 (3.5-5.0) g/dL Amylase 133 H (30-110) U/L Lipase 207 (23-300) U/L Urine Color Urine Appearance (Clear) Urine pH (5.0-8.0) Ur Specific [place] (1.001-1.035) Urine Protein (Negative) Urine Glucose (UA) (Negative) Urine Ketones (Negative) Urine Blood (Negative) Urine Nitrite (Negative) Urine Bilirubin (Negative) Urine Urobilinogen (<2.0) mg/dL Ur Leukocyte Esterase (Negative) Urine RBC (0-5) /hpf Urine WBC (0-5) /hpf Ur Squamous Epith Cells (0-4) /hpf Urine Bacteria (None) /hpf Urine Mucus (None) /hpf Urine HCG, Qual (Not Detectd) 05/28/19 05/28/19 Range/Units 23:41 23:41 WBC (3.8-10.6) k/uL RBC (3.80-5.40) m/uL Hgb (11.4-16.0) gm/dL Hct (34.0-46.0) % MCV (80.0-100.0) fL MCH (25.0-35.0) pg MCHC (31.0-37.0) g/dL RDW (11.5-15.5) % Plt Count (150-450) k/uL Neutrophils % % Lymphocytes % % Monocytes % % Eosinophils % % Basophils % % Neutrophils # (1.3-7.7) k/uL Lymphocytes # (1.0-4.8) k/uL Monocytes # (0-1.0) k/uL Eosinophils # (0-0.7) k/uL Basophils # (0-0.2) k/uL ESR (0-20) mm/hr Sodium (137-145) mmol/L Potassium (3.5-5.1) mmol/L Chloride (98-107) mmol/L Carbon Dioxide (22-30) mmol/L Anion Gap mmol/L BUN (7-17) mg/dL Creatinine (0.52-1.04) mg/dL Est GFR (CKD-EPI)AfAm (>60 ml/min/1.73 sqM) Est GFR (CKD-EPI)NonAf (>60 ml/min/1.73 sqM) Glucose (74-99) mg/dL Plasma Lactic Acid Rehan (0.7-2.0) mmol/L Calcium (8.4-10.2) mg/dL Total Bilirubin (0.2-1.3) mg/dL AST (14-36) U/L ALT (9-52) U/L Alkaline Phosphatase (38-126) U/L C-Reactive Protein (<10.0) mg/L Total Protein (6.3-8.2) g/dL Albumin (3.5-5.0) g/dL Amylase (30-110) U/L Lipase (23-300) U/L Urine Color Yellow Urine Appearance Cloudy H (Clear) Urine pH 6.0 (5.0-8.0) Ur Specific [place] 1.034 (1.001-1.035) Urine Protein 1+ H (Negative) Urine Glucose (UA) Negative (Negative) Urine Ketones Negative (Negative) Urine Blood Negative (Negative) Urine Nitrite Negative (Negative) Urine Bilirubin Negative (Negative) Urine Urobilinogen <2.0 (<2.0) mg/dL Ur Leukocyte Esterase Large H (Negative) Urine RBC 7 H (0-5) /hpf Urine WBC 16 H (0-5) /hpf Ur Squamous Epith Cells 5 H (0-4) /hpf Urine Bacteria Rare H (None) /hpf Urine Mucus Moderate H (None) /hpf Urine HCG, Qual Not Detected (Not Detectd) - Radiology Data Radiology results: report reviewed, image reviewed Two-view x-ray of the abdomen is obtained. Report was reviewed in its entirety. Impression by Dr. Galvan shows nonacute abdomen. No change. Disposition Clinical Impression: Crohn's disease, Abdominal pain, UTI (urinary tract infection) Disposition: HOME SELF-CARE Condition: Good Instructions (If sedation given, give patient instructions): Urinary Tract Infection in Women (ED), Abdominal Pain (ED) Additional Instructions: Increase fluids. Rest. Take medications as directed. Follow-up with your primary care physician for recheck in 1-2 days. Return to the emergency department immediately for any new, worsening, or concerning symptoms. Prescriptions: Cephalexin [Keflex] 500 mg PO Q6H #28 cap Diazepam [Valium] 5 mg PO TID PRN 3 Days #9 tab PRN Reason: Muscle Spasm Is patient prescribed a controlled substance at d/c from ED?: Yes When asked, does pt state using other controlled substances?: Yes If prescribed controlled substance>3 days was MAPS reviewed?: Prescribed <3 Days Referrals: Donavan Guzman DO [Primary Care Provider] - 1-2 days Time of Disposition: 02:31
[2019-05-29] MEDS ORDERED: HYDROmorphone 1 MG/ML 1 ML SYRINGE IVP STA (00:52)
[2019-05-29 01:09] LABS: African American GFR (CKD) >90 (>60 ml/min/1.73 sqM); Amylase 133 U/L (30-110); Anion Gap 13 mmol/L; Blood Urea Nitrogen 9 mg/dL (7-17); Calcium 9.3 mg/dL (8.4-10.2); Carbon Dioxide 22 mmol/L (22-30); Chloride 102 mmol/L (98-107); Glucose 72 mg/dL (74-99); Non-African American GFR(CKD) >90 (>60 ml/min/1.73 sqM); Sodium 137 mmol/L (137-145)
[2019-05-29 01:12] LABS: Total Protein 9.1 g/dL (6.3-8.2)
[2019-05-29 01:13] LABS: AST 73 U/L (14-36); Alkaline Phosphatase 97 U/L (38-126); Total Bilirubin 0.7 mg/dL (0.2-1.3)
[2019-05-29 01:42] LABS: Erythrocyte Sedimentation Rate 8 mm/hr (0-20)
[2019-05-29 01:54] LABS: ALT <6 U/L (9-52); C Reactive Protein <5.0 mg/L (<10.0)
[2019-05-29] MEDS ORDERED: HYDROmorphone 0.5 MG/0.5 ML SYRINGE IVP STA (02:29)
[2019-05-29] MEDS ORDERED: DIAZEPAM 5 MG/ML 2 ML INJ IVP STA (02:29)
[2019-05-29 02:50] VITALS: BP 106/73; PULSE 80; RESP 16
== END 2019-05-29 02:52 | disposition home or self-care (01) ==
LOC: EC 22:17
DX: K50.90 Crohn's disease, unspecified, without complications (principal); N39.0 Urinary tract infection, site not specified; F41.9 Anxiety disorder, unspecified; F32.9 Major depressive disorder, single episode, unspecified; Z79.899 Other long term (current) drug therapy; Z88.0 Allergy status to penicillin; Z88.8 Allergy status to other drugs, medicaments and biological substances; Z98.890 Other specified postprocedural states; Z86.14 Personal history of Methicillin resistant Staphylococcus aureus infection; Z90.49 Acquired absence of other specified parts of digestive tract
CPT/HCPCS: 36415; 80053; 85652; 82150; 83605; 83690; 85025; 86140; 81001; 81025; 74018; 99284; 96374; 96375 ×2; 96376 ×2; 96361; J3360; J2405; J1170 ×2

== ENCOUNTER 2019-06-10 20:08 | Emergency (ER) | payer MEDICARE, OTHER ==
[2019-06-10 20:23] VITALS: RESP 18
[2019-06-10] MEDS ORDERED: SODIUM CHLORIDE 0.9% 1,000 ML IV STA (20:41)
[2019-06-10] MEDS ORDERED: HYDROmorphone 1 MG/ML 1 ML SYRINGE IVP STA (20:52)
[2019-06-10] MEDS ORDERED: ONDANSETRON 4 MG/2 ML VIAL IVP STA (20:52)
[2019-06-10 21:19] LABS: Basophils % (A) 0 %; Eosinophils # (A) 0.2 k/uL (0-0.7); Eosinophils % (A) 3 %; HCT 39.6 % (34.0-46.0); HGB 13.2 gm/dL (11.4-16.0); Lymphocytes # (A) 2.9 k/uL (1.0-4.8); Lymphocytes % (A) 45 %; MCHC 33.3 g/dL (31.0-37.0); Mean Platelet Volume 5.8; Monocytes # (A) 0.3 k/uL (0-1.0); Monocytes % (A) 5 %; Neutrophils # (A) 2.9 k/uL (1.3-7.7); Neutrophils % (A) 45 %; Platelet Count 274 k/uL (150-450); RDW 12.6 % (11.5-15.5); WBC 6.4 k/uL (3.8-10.6)
[2019-06-10 21:24] LABS: Appearance,Urine Clear (Clear); Bilirubin,Urine Negative (Negative); Blood,Urine Negative (Negative); Color,Urine Yellow; Glucose,Urine (UA) Negative (Negative); Ketones,Urine Negative (Negative); Leukocyte Esterase,Urine Trace (Negative); Mucus,Urine Many /hpf; Nitrite,Urine Negative (Negative); Protein,Urine Negative (Negative); RBC,Urine 2 /hpf (0-5); Specific Gravity,Urine 1.028 (1.001-1.035); Squamous Epithelial Cell,Urine 1 /hpf (0-4); Urobilinogen,Urine <2.0 mg/dL (<2.0); WBC,Urine 3 /hpf (0-5)
--- NOTE | 2019-06-10 21:25 | XR ---
EXAMINATION TYPE: XR KUB DATE OF EXAM: 06/10/2019 COMPARISON: NONE HISTORY: 05/29/2019 TECHNIQUE: 2 views upright FINDINGS: There is no sign of intestinal obstruction or pneumoperitoneum. Fecal pattern is normal. Lazara ng bases are clear. There are no pathologic calcifications over the kidneys. IMPRESSION: Nonacute abdomen. No change.
[2019-06-10 21:30] LABS: ALT 20 U/L (9-52); AST 24 U/L (14-36); African American GFR (CKD) >90 (>60 ml/min/1.73 sqM); Albumin 4.3 g/dL (3.5-5.0); Alkaline Phosphatase 73 U/L (38-126); Amylase 69 U/L (30-110); Anion Gap 12 mmol/L; Blood Urea Nitrogen 8 mg/dL (7-17); Calcium 9.4 mg/dL (8.4-10.2); Carbon Dioxide 23 mmol/L (22-30); Chloride 104 mmol/L (98-107); Glucose 87 mg/dL (74-99); Potassium 3.9 mmol/L (3.5-5.1); Sodium 139 mmol/L (137-145); Total Bilirubin 0.1 mg/dL (0.2-1.3); Total Protein 7.6 g/dL (6.3-8.2)
--- NOTE | 2019-06-10 21:34 | ED ---
General Adult HPI - General Chief complaint: Abdominal Pain Stated complaint: Chrons Flare up Time Seen by Provider: 06/10/19 20:27 Source: patient, RN notes reviewed Mode of arrival: wheelchair Limitations: no limitations - History of Present Illness Initial comments: 24-year-old female with a past medical history of Crohn's, IBD, presents to the emergency department for abdominal pain. Patient states her abdominal pain has been worsening since . States that today it worsened again. States it is mostly in her left lower quadrant. Patient states the pain is making her nauseous but denies vomiting. Patient states that she has had 2 colon resections and 2017 because of her Crohn's. Denies fevers or chills.Patient has no other complaints at this time including shortness of breath, chest pain, vomiting, headache, or visual changes. - Related Data Home Medications Medication Instructions Recorded Confirmed Ustekinumab [Stelara] 45 mg SQ Q56D 01/04/18 04/15/19 Medroxyprogesterone Acetate 150 mg IM Q90D 03/10/18 04/15/19 [Depo-Provera] Amitriptyline HCl 20 mg PO HS 04/11/18 04/15/19 Benztropine Mesylate [Cogentin] 1.5 mg PO BID 12/01/18 04/15/19 Melatonin 10 mg PO HS PRN 12/01/18 04/15/19 hydrOXYzine PAMOATE [Vistaril] 100 mg PO TID 12/01/18 04/15/19 Lurasidone [Latuda] 80 mg PO HS 03/07/19 04/15/19 Vitamin C/Biotin [Hair, Skin and 1 tab PO DAILY 04/15/19 04/15/19 Nails] oxyCODONE HCL/ACETAMINOPHEN 1 tab PO Q4HR PRN 04/15/19 04/15/19 [Percocet 10-325 mg] Previous Rx's Medication Instructions Recorded Ondansetron Odt [Zofran Odt] 4 mg PO Q8HR PRN #12 tab 03/07/19 Diazepam [Valium] 10 mg PO Q6H PRN 3 Days #12 tab 04/15/19 Cephalexin [Keflex] 500 mg PO Q6H #28 cap 05/29/19 Diazepam [Valium] 5 mg PO TID PRN 3 Days #9 tab 05/29/19 Allergies Allergy/AdvReac Type Severity Reaction Status Date / Time adalimumab [From Humira] Allergy RASH/NAUSEA/VOMITING/JOINT Verified 06/10/19 2 0:23 PAIN amoxicillin trihydrate Allergy Rash/Hives Verified 06/10/19 20:23 [From Augmentin] potassium clavulanate Allergy Rash/Hives Verified 06/10/19 20:23 [From Augmentin] Review of Systems ROS Statement: Those systems with pertinent positive or pertinent negative responses have been documented in the HPI. ROS Other: All systems not noted in ROS Statement are negative. Past Medical History Past Medical History: No Reported History Additional Past Medical History / Comment(s): crohns, IBD, colitis dx of crohns at age 10. History of Any Multi-Drug Resistant Organisms: MRSA Date of last positivie culture/infection: 2002 MDRO Source:: Hip Past Surgical History: Bowel Resection, Cholecystectomy Additional Past Surgical History / Comment(s): wisdom teeth, bowel resection x 2 in 2017, sepsis after first surgery Past Psychological History: Anxiety, Depression Smoking Status: Never smoker Past Alcohol Use History: Occasional, Rare Past Drug Use History: None Reported - Past Family History Mother Family Medical History: Cancer General Exam Limitations: no limitations General appearance: alert, in no apparent distress Head exam: Present: atraumatic, normocephalic, normal inspection Eye exam: Present: normal appearance, PERRL, EOMI. Absent: scleral icterus, conjunctival injection, periorbital swelling ENT exam: Present: normal exam, mucous membranes moist Neck exam: Present: normal inspection. Absent: tenderness, meningismus, lymphadenopathy Respiratory exam: Present: normal lung sounds bilaterally. Absent: respiratory distress, wheezes, rales, rhonchi, stridor Cardiovascular Exam: Present: regular rate, normal rhythm, normal heart sounds. Absent: systolic murmur, diastolic murmur, rubs, gallop, clicks GI/Abdominal exam: Present: soft, tenderness (mild generalized abdominal tenderness worse in the LLQ), normal bowel sounds. Absent: distended, guarding, rebound, rigid Neurological exam: Present: alert Course Vital Signs 06/10/19 20:20 Temperature 98.1 F Pulse Rate 88 Respiratory 18 Rate Blood Pressure 116/80 O2 Sat by Pulse 98 Oximetry Medical Decision Making - Medical Decision Making Vitals are stable. Patient is afebrile. CBC and CMP unremarkable. Urinalysis is negative. X-ray KUB shows a nonacute abdomen without change. Patient was given pain medication and did have some minimal improvement. I had a lengthy discussion with patient about performing a CAT scan versus watchful waiting. Patient states this feels different than her normal Crohn's flareup and she would like to have a CAT scan performed.CT of abdomen and pelvis shows a right sided a colectomy. Umbilical hernia contains anterior wall of the transverse colon. No evidence of bowel obstruction. No sign of acute abdomen or pelvis. No adverse change compared to old exam. Patient is aware of umbilical hernia and dates they're not recommending any surgical intervention at this time. Pain is not near hernia site. Patient's pain is currently controlled. Patient is feeling well enough to go home at this time. However she does agree to return to the ER if her pain is not manageable at home. She will follow-up with her setter out through [place]. - Lab Data Result diagrams: 06/10/19 21:10 06/10/19 21:10 Lab Results 06/10/19 06/10/19 06/10/19 Range/Units 21:10 21:10 21:10 WBC 6.4 (3.8-10.6) k/uL RBC 4.40 (3.80-5.40) m/uL Hgb 13.2 (11.4-16.0) gm/dL Hct 39.6 (34.0-46.0) % MCV 90.0 (80.0-100.0) fL MCH 30.0 (25.0-35.0) pg MCHC 33.3 (31.0-37.0) g/dL RDW 12.6 (11.5-15.5) % Plt Count 274 (150-450) k/uL Neutrophils % 45 % Lymphocytes % 45 % Monocytes % 5 % Eosinophils % 3 % Basophils % 0 % Neutrophils # 2.9 (1.3-7.7) k/uL Lymphocytes # 2.9 (1.0-4.8) k/uL Monocytes # 0.3 (0-1.0) k/uL Eosinophils # 0.2 (0-0.7) k/uL Basophils # 0.0 (0-0.2) k/uL Sodium 139 (137-145) mmol/L Potassium 3.9 (3.5-5.1) mmol/L Chloride 104 (98-107) mmol/L Carbon Dioxide 23 (22-30) mmol/L Anion Gap 12 mmol/L BUN 8 (7-17) mg/dL Creatinine 0.68 (0.52-1.04) mg/dL Est GFR (CKD-EPI)AfAm >90 (>60 ml/min/1.73 sqM) Est GFR (CKD-EPI)NonAf >90 (>60 ml/min/1.73 sqM) Glucose 87 (74-99) mg/dL Calcium 9.4 (8.4-10.2) mg/dL Total Bilirubin 0.1 L (0.2-1.3) mg/dL AST 24 (14-36) U/L ALT 20 (9-52) U/L Alkaline Phosphatase 73 (38-126) U/L Total Protein 7.6 (6.3-8.2) g/dL Albumin 4.3 (3.5-5.0) g/dL Amylase 69 (30-110) U/L Lipase 103 (23-300) U/L Urine Color Urine Appearance (Clear) Urine pH (5.0-8.0) Ur Specific [place] (1.001-1.035) Urine Protein (Negative) Urine Glucose (UA) (Negative) Urine Ketones (Negative) Urine Blood (Negative) Urine Nitrite (Negative) Urine Bilirubin (Negative) Urine Urobilinogen (<2.0) mg/dL Ur Leukocyte Esterase (Negative) Urine RBC (0-5) /hpf Urine WBC (0-5) /hpf Ur Squamous Epith Cells (0-4) /hpf Urine Mucus (None) /hpf Urine HCG, Qual Not Detected (Not Detectd) 06/10/19 Range/Units 21:10 WBC (3.8-10.6) k/uL RBC (3.80-5.40) m/uL Hgb (11.4-16.0) gm/dL Hct (34.0-46.0) % MCV (80.0-100.0) fL MCH (25.0-35.0) pg MCHC (31.0-37.0) g/dL RDW (11.5-15.5) % Plt Count (150-450) k/uL Neutrophils % % Lymphocytes % % Monocytes % % Eosinophils % % Basophils % % Neutrophils # (1.3-7.7) k/uL Lymphocytes # (1.0-4.8) k/uL Monocytes # (0-1.0) k/uL Eosinophils # (0-0.7) k/uL Basophils # (0-0.2) k/uL Sodium (137-145) mmol/L Potassium (3.5-5.1) mmol/L Chloride (98-107) mmol/L Carbon Dioxide (22-30) mmol/L Anion Gap mmol/L BUN (7-17) mg/dL Creatinine (0.52-1.04) mg/dL Est GFR (CKD-EPI)AfAm (>60 ml/min/1.73 sqM) Est GFR (CKD-EPI)NonAf (>60 ml/min/1.73 sqM) Glucose (74-99) mg/dL Calcium (8.4-10.2) mg/dL Total Bilirubin (0.2-1.3) mg/dL AST (14-36) U/L ALT (9-52) U/L Alkaline Phosphatase (38-126) U/L Total Protein (6.3-8.2) g/dL Albumin (3.5-5.0) g/dL Amylase (30-110) U/L Lipase (23-300) U/L Urine Color Yellow Urine Appearance Clear (Clear) Urine pH 6.0 (5.0-8.0) Ur Specific [place] 1.028 (1.001-1.035) Urine Protein Negative (Negative) Urine Glucose (UA) Negative (Negative) Urine Ketones Negative (Negative) Urine Blood Negative (Negative) Urine Nitrite Negative (Negative) Urine Bilirubin Negative (Negative) Urine Urobilinogen <2.0 (<2.0) mg/dL Ur Leukocyte Esterase Trace H (Negative) Urine RBC 2 (0-5) /hpf Urine WBC 3 (0-5) /hpf Ur Squamous Epith Cells 1 (0-4) /hpf Urine Mucus Many H (None) /hpf Urine HCG, Qual (Not Detectd) Disposition Clinical Impression: Abdominal pain, Crohn's disease Disposition: HOME SELF-CARE Condition: Good Instructions (If sedation given, give patient instructions): Abdominal Pain (ED) Additional Instructions: Please take pain medications already prescribed to. Please follow-up with primary care as well as her setter out in 1-2 days. Return here to the emergency department if you have any worsening symptoms. Is patient prescribed a controlled substance at d/c from ED?: No Referrals: Donavan Guzman DO [Primary Care Provider] - 1-2 days Time of Disposition: 22:34
[2019-06-10] MEDS ORDERED: LORazepam 2 MG/ML INJ IV STA (21:40)
[2019-06-10] MEDS ORDERED: HYDROmorphone 0.5 MG/0.5 ML SYRINGE IVP STA ×2 (21:40→23:05)
--- NOTE | 2019-06-10 22:23 | CT ---
EXAMINATION TYPE: CT abdomen pelvis w con DATE OF EXAM: 06/10/2019 COMPARISON: 03/07/2019 HISTORY: Left lower quadrant abdominal pain. History of Crohn's disease. CT DLP: 894.7 mGycm Automated exposure control for dose reduction was used. TECHNIQUE: Helical acquisition of images was performed from the lung bases through the pelvis. CONTRAST: Performed without Oral Contrast and with IV Contrast, patient injected with 100ml mL of Isovue 300. FINDINGS: Lung bases are clear. There is no pleural effusion. Heart size is normal. Liver spleen stomach pancreas appear normal. Bile ducts are not dilated. Gallbladder is absent. There is no adrenal mass. Kidneys show satisfactory contrast opacification. There is no hydronephrosi s. Ureters are not dilated. There is no retroperitoneal adenopathy. Bladder distends smoothly. There is no free fluid in the pelvis. There is no inguinal hernia. There is no evidence of a bowel obstruction. There is no mesenteric edema. There is apparent right he micolectomy with no evidence of obstruction at the anastomosis. There is retained fecal material in t he transverse colon. There is broad-based umbilical hernia that contains anterior wall of the transve rse colon. There is no mesenteric edema. There is no ascites or free air. Lumbar spine is intact. Bony pelvis ap pears intact. I see no intestinal wall thickening. IMPRESSION: RIGHT-SIDED HEMICOLECTOMY. UMBILICAL HERNIA CONTAINS ANTERIOR WALL OF THE TRANSVERSE COLON. NO EVIDEN CE OF A BOWEL OBSTRUCTION. NO SIGN OF ACUTE ABDOMEN AND PELVIS. NO ADVERSE CHANGE COMPARED TO OLD EXA M.
[2019-06-10 23:04] VITALS: BP 107/68; PULSE 92; TEMP 98.2
== END 2019-06-10 23:14 | disposition home or self-care (01) ==
LOC: EC 20:08
DX: K50.90 Crohn's disease, unspecified, without complications (principal); K42.9 Umbilical hernia without obstruction or gangrene; F41.9 Anxiety disorder, unspecified; F32.9 Major depressive disorder, single episode, unspecified; Z86.14 Personal history of Methicillin resistant Staphylococcus aureus infection; Z86.19 Personal history of other infectious and parasitic diseases; Z87.19 Personal history of other diseases of the digestive system; Z90.49 Acquired absence of other specified parts of digestive tract; Z98.890 Other specified postprocedural states; Z79.52 Long term (current) use of systemic steroids; Z79.899 Other long term (current) drug therapy; Z88.0 Allergy status to penicillin; Z88.8 Allergy status to other drugs, medicaments and biological substances
CPT/HCPCS: 99284; 96374; 96375 ×2; 96376 ×2; 96361 ×2; 36415; 80053; 82150; 83690; 85025; 81001; 81025; 74018; 74177; J2060; J2405; J1170 ×2; Q9967

== ENCOUNTER 2019-06-29 17:19 | Emergency (ER) | payer MEDICARE, OTHER ==
[2019-06-29 17:31] VITALS: TEMP 98.6
[2019-06-29] MEDS ORDERED: HYDROmorphone 1 MG/ML 1 ML SYRINGE IVP STA (17:55)
[2019-06-29] MEDS ORDERED: SODIUM CHLORIDE 0.9% 1,000 ML IV STA (17:55)
--- NOTE | 2019-06-29 18:53 | ED ---
General Adult HPI - General Chief complaint: Abdominal Pain Stated complaint: Crohn's flare Time Seen by Provider: 06/29/19 17:44 Source: patient, RN notes reviewed, old records reviewed Mode of arrival: ambulatory Limitations: no limitations - History of Present Illness Initial comments: 44-year-old female patient presents to ED complaining of evaluation of left lower quadrant/adnexal pain. Patient reports this was has ongoing for approximately one week. Patient for this she was admitted to [facility] for approximate 4 days for intractable nausea vomiting abdominal pain. Patient does have a history of Crohn's. Patient reports that she had a CAT scan which displayed some mild bowel thickening. Patient was that she has had nausea without emesis was diarrhea. Patient was tested for C. diff which was negative. Patient for the symptoms are the same for which she was admitted [place]. Have not improved. Systemic: Pt denies fatigue, fever/chills, rash. Pt denies weakness, night sweats, weight loss. Neuro: Pt denies headache, visual disturbances, syncope or pre-syncope. HEENT: Pt denies ocular discharge or irritation, otalgia, rhinorrhea, pharyngitis or notable lymphadenopathy. Cardiopulmonary: Pt denies chest pain, SOB, heart palpitations, dyspnea on exertion. : Pt denies dysuria, burning w/ urination, frequency/urgency. Denies new onset urinary or bowel incontinence. MSK: Pt denies myalgia, loss of strength or function in extremities. Neuro: Pt denies new onset weakness, paresthesias. - Related Data Home Medications Medication Instructions Recorded Confirmed Ustekinumab [Stelara] 45 mg SQ Q56D 01/04/18 04/15/19 Medroxyprogesterone Acetate 150 mg IM Q90D 03/10/18 04/15/19 [Depo-Provera] Amitriptyline HCl 20 mg PO HS 04/11/18 04/15/19 Benztropine Mesylate [Cogentin] 1.5 mg PO BID 12/01/18 04/15/19 Melatonin 10 mg PO HS PRN 12/01/18 04/15/19 hydrOXYzine PAMOATE [Vistaril] 100 mg PO TID 12/01/18 04/15/19 Lurasidone [Latuda] 80 mg PO HS 03/07/19 04/15/19 Vitamin C/Biotin [Hair, Skin and 1 tab PO DAILY 04/15/19 04/15/19 Nails] oxyCODONE HCL/ACETAMINOPHEN 1 tab PO Q4HR PRN 04/15/19 04/15/19 [Percocet 10-325 mg] Previous Rx's Medication Instructions Recorded Ondansetron Odt [Zofran Odt] 4 mg PO Q8HR PRN #12 tab 03/07/19 Diazepam [Valium] 10 mg PO Q6H PRN 3 Days #12 tab 04/15/19 Cephalexin [Keflex] 500 mg PO Q6H #28 cap 05/29/19 Diazepam [Valium] 5 mg PO TID PRN 3 Days #9 tab 05/29/19 Allergies Allergy/AdvReac Type Severity Reaction Status Date / Time adalimumab [From Humira] Allergy RASH/NAUSEA/VOMITING/JOINT Verified 06/29/19 17:31 PAIN amoxicillin trihydrate Allergy Rash/Hives Verified 06/29/19 17:31 [From Augmentin] potassium clavulanate Allergy Rash/Hives Verified 06/29/19 17:31 [From Augmentin] Review of Systems ROS Statement: Those systems with pertinent positive or pertinent negative responses have been documented in the HPI. ROS Other: All systems not noted in ROS Statement are negative. Past Medical History Past Medical History: No Reported History Additional Past Medical History / Comment(s): crohns, IBD, colitis dx of crohns at age 10. History of Any Multi-Drug Resistant Organisms: MRSA Date of last positivie culture/infection: 2002 MDRO Source:: Hip Past Surgical History: Bowel Resection, Cholecystectomy Additional Past Surgical History / Comment(s): wisdom teeth, bowel resection x 2 in 2017, sepsis after first surgery Past Psychological History: Anxiety, Depression Smoking Status: Never smoker Past Alcohol Use History: Occasional, Rare Past Drug Use History: None Reported - Past Family History Mother Family Medical History: Cancer General Exam - General Exam Comments Initial Comments: Constitutional: NAD, AOX3, Pt has pleasant affect. HEENT: NC/AT, trachea midline, neck supple, no lymphadenopathy. Posterior pharynx non erythematous, without exudates. External ears appear normal, without discharge. Mucous membranes moist. Eyes PERRLA, EOM intact. There is no scleral icterus. No pallor noted. Cardiopulmonary: RRR, no murmurs, rubs or gallops, no JVD noted. Lungs CTAB in anterior and posterior aquino. No peripheral edema. Abdominal exam: Abdomen soft and non-distended. Abdomen mildly tender to palpation left lower quadrant/adnexal region.. Bowel sounds active in LLQ. No hepatosplenomegaly. No ecchymosis Neuro: CN II-XII grossly intact. No nuchal rigidity. No raccon eyes, no byers sign, no hemotympanum. No cervical spinal tenderness. MSK: No posterior calf tenderness bilaterally, homans sign negative bilaterally. Posterior tibialis and radial pulse +2 bilaterally. Sensation intact in upper and lower extremities. Full active ROM in upper and lower extremities, 5/5 stregnth. Limitations: no limitations Course Vital Signs 06/29/19 06/29/19 06/29/19 17:26 18:56 19:57 Temperature 98.6 F Pulse Rate 91 93 Pulse Rate [ 88 Pulse Oximetery ] Respiratory 20 18 Rate Blood Pressure 132/94 122/82 O2 Sat by Pulse 99 98 Oximetry Medical Decision Making - Medical Decision Making 44-year-old female patient presents to ED complaining of evaluation of left lower quadrant/adnexal pain. Patient reports this was has ongoing for approximately one week. Patient for this she was admitted to [facility] for approximate 4 days for intractable nausea vomiting abdominal pain. Patient does have a history of Crohn's. Patient reports that she had a CAT scan which displayed some mild bowel thickening. Patient was that she has had nausea without emesis was diarrhea. Patient was tested for C. diff which was negative. Patient for the symptoms are the same for which she was admitted [place]. Have not improved. Patient vital signs are stable, afebrile. Physical exam displayed left lower quadrant/left adnexal pain. Laboratory Investigations nonimmpressive. Troponin is negative. UA will be cultured. Chest x-ray negative. Ultrasound transvaginal displayed small amount of free fluid in pelvis, physiologic. No evidence of torsion. Multiple left ovarian cysts noted. etiology of patient's discomfort could be ovarian cysts. Patient will be discharged with OB follow-up and return precautions. She declines further imaging including CAT scan due to radiation burden. Case discussed with Dr. Cadet. - Lab Data Result diagrams: 06/29/19 18:02 06/29/19 18:02 Lab Results 06/29/19 06/29/19 06/29/19 Range/Units 18:02 18:02 18:02 WBC 8.7 (3.8-10.6) k/uL RBC 4.71 (3.80-5.40) m/uL Hgb 14.0 (11.4-16.0) gm/dL Hct 42.0 (34.0-46.0) % MCV 89.0 (80.0-100.0) fL MCH 29.7 (25.0-35.0) pg MCHC 33.4 (31.0-37.0) g/dL RDW 13.2 (11.5-15.5) % Plt Count 266 (150-450) k/uL Neutrophils % 58 % Lymphocytes % 31 % Monocytes % 5 % Eosinophils % 2 % Basophils % 0 % Neutrophils # 5.1 (1.3-7.7) k/uL Lymphocytes # 2.7 (1.0-4.8) k/uL Monocytes # 0.5 (0-1.0) k/uL Eosinophils # 0.2 (0-0.7) k/uL Basophils # 0.0 (0-0.2) k/uL Sodium 139 (137-145) mmol/L Potassium 3.6 (3.5-5.1) mmol/L Chloride 107 (98-107) mmol/L Carbon Dioxide 18 L (22-30) mmol/L Anion Gap 14 mmol/L BUN 11 (7-17) mg/dL Creatinine 0.68 (0.52-1.04) mg/dL Est GFR (CKD-EPI)AfAm >90 (>60 ml/min/1.73 sqM) Est GFR (CKD-EPI)NonAf >90 (>60 ml/min/1.73 sqM) Glucose 89 (74-99) mg/dL Plasma Lactic Acid Rehan (0.7-2.0) mmol/L Calcium 9.2 (8.4-10.2) mg/dL Total Bilirubin 0.5 (0.2-1.3) mg/dL AST 29 (14-36) U/L ALT 7 L (9-52) U/L Alkaline Phosphatase 96 (38-126) U/L Troponin I (0.000-0.034) ng/mL Total Protein 7.7 (6.3-8.2) g/dL Albumin 4.4 (3.5-5.0) g/dL Lipase 95 (23-300) U/L Urine Color Urine Appearance (Clear) Urine pH (5.0-8.0) Ur Specific [place] (1.001-1.035) Urine Protein (Negative) Urine Glucose (UA) (Negative) Urine Ketones (Negative) Urine Blood (Negative) Urine Nitrite (Negative) Urine Bilirubin (Negative) Urine Urobilinogen (<2.0) mg/dL Ur Leukocyte Esterase (Negative) Urine RBC (0-5) /hpf Urine WBC (0-5) /hpf Ur Squamous Epith Cells (0-4) /hpf Amorphous Sediment (None) /hpf Urine Mucus (None) /hpf Urine HCG, Qual Not Detected (Not Detectd) 06/29/19 06/29/19 06/29/19 Range/Units 18:02 18:02 18:02 WBC (3.8-10.6) k/uL RBC (3.80-5.40) m/uL Hgb (11.4-16.0) gm/dL Hct (34.0-46.0) % MCV (80.0-100.0) fL MCH (25.0-35.0) pg MCHC (31.0-37.0) g/dL RDW (11.5-15.5) % Plt Count (150-450) k/uL Neutrophils % % Lymphocytes % % Monocytes % % Eosinophils % % Basophils % % Neutrophils # (1.3-7.7) k/uL Lymphocytes # (1.0-4.8) k/uL Monocytes # (0-1.0) k/uL Eosinophils # (0-0.7) k/uL Basophils # (0-0.2) k/uL Sodium (137-145) mmol/L Potassium (3.5-5.1) mmol/L Chloride (98-107) mmol/L Carbon Dioxide (22-30) mmol/L Anion Gap mmol/L BUN (7-17) mg/dL Creatinine (0.52-1.04) mg/dL Est GFR (CKD-EPI)AfAm (>60 ml/min/1.73 sqM) Est GFR (CKD-EPI)NonAf (>60 ml/min/1.73 sqM) Glucose (74-99) mg/dL Plasma Lactic Acid Rehan 1.3 (0.7-2.0) mmol/L Calcium (8.4-10.2) mg/dL Total Bilirubin (0.2-1.3) mg/dL AST (14-36) U/L ALT (9-52) U/L Alkaline Phosphatase (38-126) U/L Troponin I <0.012 (0.000-0.034) ng/mL Total Protein (6.3-8.2) g/dL Albumin (3.5-5.0) g/dL Lipase (23-300) U/L Urine Color Yellow Urine Appearance Clear (Clear) Urine pH 6.0 (5.0-8.0) Ur Specific [place] 1.026 (1.001-1.035) Urine Protein Trace H (Negative) Urine Glucose (UA) Negative (Negative) Urine Ketones Negative (Negative) Urine Blood Negative (Negative) Urine Nitrite Negative (Negative) Urine Bilirubin Negative (Negative) Urine Urobilinogen <2.0 (<2.0) mg/dL Ur Leukocyte Esterase Small H (Negative) Urine RBC 2 (0-5) /hpf Urine WBC 6 H (0-5) /hpf Ur Squamous Epith Cells 3 (0-4) /hpf Amorphous Sediment Rare H (None) /hpf Urine Mucus Few H (None) /hpf Urine HCG, Qual (Not Detectd) - EKG Data -: EKG Interpreted by Me (and Dr. Cadet ) EKG Comments: Ventricular rate 83, when necessary for 144, curiously 6, QT/QTc 386 is 453. Normal sensory rhythm, right atrial enlargement, borderline EKG, no concern for acute ischemia. Disposition Clinical Impression: Abdominal pain, Ovarian cyst Disposition: HOME SELF-CARE Condition: Stable Instructions (If sedation given, give patient instructions): Ovarian Cyst (ED) Additional Instructions: Follow-up with primary care provider, GI and [facility]. Return to ER if condition worsens. Is patient prescribed a controlled substance at d/c from ED?: No Referrals: Donavan Guzman DO [Primary Care Provider] - 1-2 days Lia Malhotra DO [Doctor of Osteopathic Medicine] - 1-2 days
[2019-06-29 18:57] LABS: Amorphous Sediment,Urine Rare /hpf; Appearance,Urine Clear (Clear); Bilirubin,Urine Negative (Negative); Blood,Urine Negative (Negative); Color,Urine Yellow; Glucose,Urine (UA) Negative (Negative); Ketones,Urine Negative (Negative); Leukocyte Esterase,Urine Small (Negative); Mucus,Urine Few /hpf; Nitrite,Urine Negative (Negative); Protein,Urine Trace (Negative); RBC,Urine 2 /hpf (0-5); Specific Gravity,Urine 1.026 (1.001-1.035); Squamous Epithelial Cell,Urine 3 /hpf (0-4); Urobilinogen,Urine <2.0 mg/dL (<2.0); WBC,Urine 6 /hpf (0-5)
[2019-06-29 19:02] LABS: Basophils % (A) 0 %; Eosinophils # (A) 0.2 k/uL (0-0.7); Eosinophils % (A) 2 %; Lymphocytes # (A) 2.7 k/uL (1.0-4.8); Lymphocytes % (A) 31 %; MCH 29.7 pg (25.0-35.0); MCHC 33.4 g/dL (31.0-37.0); Mean Platelet Volume 6.3; Monocytes # (A) 0.5 k/uL (0-1.0); Monocytes % (A) 5 %; Neutrophils # (A) 5.1 k/uL (1.3-7.7); Neutrophils % (A) 58 %; Platelet Count 266 k/uL (150-450); RBC 4.71 m/uL (3.80-5.40); RDW 13.2 % (11.5-15.5); WBC 8.7 k/uL (3.8-10.6)
--- NOTE | 2019-06-29 19:02 | XR ---
EXAMINATION TYPE: XR chest 2V DATE OF EXAM: 06/29/2019 COMPARISON: 04/15/2019 HISTORY: Abdominal pain TECHNIQUE: Frontal and lateral views of the chest are obtained. FINDINGS: Heart and mediastinum are normal. Lungs are clear. Diaphragm is normal. Bony thorax appear s normal. IMPRESSION: Normal chest. No change.
[2019-06-29 19:13] LABS: ALT 7 U/L (9-52); AST 29 U/L (14-36); African American GFR (CKD) >90 (>60 ml/min/1.73 sqM); Albumin 4.4 g/dL (3.5-5.0); Alkaline Phosphatase 96 U/L (38-126); Anion Gap 14 mmol/L; Blood Urea Nitrogen 11 mg/dL (7-17); Calcium 9.2 mg/dL (8.4-10.2); Carbon Dioxide 18 mmol/L (22-30); Chloride 107 mmol/L (98-107); Glucose 89 mg/dL (74-99); Potassium 3.6 mmol/L (3.5-5.1); Sodium 139 mmol/L (137-145); Total Bilirubin 0.5 mg/dL (0.2-1.3); Total Protein 7.7 g/dL (6.3-8.2)
[2019-06-29] MEDS ORDERED: HYDROmorphone 0.5 MG/0.5 ML SYRINGE IVP STA (19:55)
[2019-06-29 19:57] VITALS: BP 122/82; PULSE 93; RESP 18
--- NOTE | 2019-06-29 20:16 | US ---
EXAMINATION TYPE: US transvaginal DATE OF EXAM: 06/29/2019 COMPARISON: CT 2019 CLINICAL HISTORY: left adnexal pain . Left adnexal pain since December. Depo shot. LMP 2016. . TECHNIQUE: Transvaginal (TV). Date of LMP: 2016 EXAM MEASUREMENTS: Uterus: 5.3 x 3.6 x 2.1 cm Endometrial Stripe: 0.29 cm Right Ovary: not seen Left Ovary: 2.6 x 1.4 x 1.3 cm 1. Uterus: Retroverted. Appears heterogeneous. Difficult to see endometrium. Hypoechoic area seen me asurin.7 x 0.4 x 0.5 cm. Appears to be anechoic fluid in cervix area. Prominent peripheral vessel s. 2. Endometrium: Difficult to visualize. 3. Right Ovary: not seen 4. Left Ovary: Area measured is posterior to the uterus that appears to be the left ovary. Anechoic areas seen within. Largest measures: 1.3 x 1.0 x 0.9 cm. Spectral, color and waveform doppler imaging shows arterial and venous flow within the left ovary. 5. Bilateral Adnexa: appear wnl 6. Posterior cul-de-sac: fluid seen IMPRESSION: Small amount of free fluid in the pelvis could be physiologic. No evidence of ovarian tor herbert. No endometrial mass.
== END 2019-06-29 21:04 | disposition home or self-care (01) ==
LOC: EC 17:19
DX: N83.202 Unspecified ovarian cyst, left side (principal); R11.0 Nausea; K50.90 Crohn's disease, unspecified, without complications; F32.9 Major depressive disorder, single episode, unspecified; F41.9 Anxiety disorder, unspecified; Z88.0 Allergy status to penicillin; Z88.8 Allergy status to other drugs, medicaments and biological substances; Z79.3 Long term (current) use of hormonal contraceptives; Z79.899 Other long term (current) drug therapy; Z86.14 Personal history of Methicillin resistant Staphylococcus aureus infection; Z90.49 Acquired absence of other specified parts of digestive tract; Z53.29 Procedure and treatment not carried out because of patient's decision for other reasons
CPT/HCPCS: 99285; 96374; 96376; 96361; 36415; 93005; 80053; 83605; 83690; 84484; 85025; 81001; 81025; 71046; 93976; 76830; J1170 ×2

== ENCOUNTER 2019-09-17 19:38 | Emergency (ER) | payer MEDICARE, OTHER ==
[2019-09-17] MEDS ORDERED: SODIUM CHLORIDE 0.9% 1,000 ML IV ONE (19:58)
[2019-09-17] MEDS ORDERED: HYDROmorphone 1 MG/ML 1 ML SYRINGE IVP STA ×2 (19:58→23:04)
[2019-09-17] MEDS ORDERED: ONDANSETRON 4 MG/2 ML VIAL IVP STA (19:58)
[2019-09-17 21:16] LABS: Appearance,Urine Clear (Clear); Bacteria,Urine Rare /hpf; Bilirubin,Urine Negative (Negative); Blood,Urine Negative (Negative); Color,Urine Yellow; Glucose,Urine (UA) Negative (Negative); Ketones,Urine Negative (Negative); Leukocyte Esterase,Urine Moderate (Negative); Mucus,Urine Many /hpf; Nitrite,Urine Negative (Negative); PH, Urine 5.5 (5.0-8.0); Protein,Urine Trace (Negative); RBC,Urine 8 /hpf (0-5); Specific Gravity,Urine 1.043 (1.001-1.035); Squamous Epithelial Cell,Urine 1 /hpf (0-4); Urobilinogen,Urine <2.0 mg/dL (<2.0); WBC,Urine 11 /hpf (0-5)
--- NOTE | 2019-09-17 21:35 | ED ---
General Adult HPI - General Chief complaint: Nausea/Vomiting/Diarrhea Stated complaint: Chrons flare up, vomiting Time Seen by Provider: 09/17/19 19:48 Source: patient Mode of arrival: ambulatory Limitations: no limitations - History of Present Illness Initial comments: 24-year-old female patient with past medical history significant for Crohn's disease presents to the emergency department today for evaluation of severe abdominal pain and vomiting. Patient states that she has been having symptoms with her Crohn's since November. States that she was diagnosed with C. diff in June. States that she has taken antibiotics for this however she feels that maybe have returned given an increase in her diarrhea. States that she has been having severe left lower quadrant abdominal pain. She is also reporting multiple episodes of diarrhea with presence of blood. She is also reporting fevers as high as 101.6F this week. States that she has been having nausea and vomiting for the last 7 days. States she is now unable to keep down any food or fluids. States that she has had partial bowel obstruction in the past. Patient denies any recent rash, shortness breath, chest pain, back pain, numbness, tingling, dizziness, weakness, hematuria, dysuria, urinary urgency, urinary frequency, headache, visual changes, or any other complaints. - Related Data Home Medications Medication Instructions Recorded Confirmed Ustekinumab [Stelara] 45 mg SQ Q56D 01/04/18 04/15/19 Medroxyprogesterone Acetate 150 mg IM Q90D 03/10/18 04/15/19 [Depo-Provera] Amitriptyline HCl 20 mg PO HS 04/11/18 04/15/19 Benztropine Mesylate [Cogentin] 1.5 mg PO BID 12/01/18 04/15/19 Melatonin 10 mg PO HS PRN 12/01/18 04/15/19 hydrOXYzine PAMOATE [Vistaril] 100 mg PO TID 12/01/18 04/15/19 Lurasidone [Latuda] 80 mg PO HS 03/07/19 04/15/19 Vitamin C/Biotin [Hair, Skin and 1 tab PO DAILY 04/15/19 04/15/19 Nails] oxyCODONE HCL/ACETAMINOPHEN 1 tab PO Q4HR PRN 04/15/19 04/15/19 [Percocet 10-325 mg] Previous Rx's Medication Instructions Recorded Ondansetron Odt [Zofran Odt] 4 mg PO Q8HR PRN #12 tab 03/07/19 Diazepam [Valium] 10 mg PO Q6H PRN 3 Days #12 tab 04/15/19 Cephalexin [Keflex] 500 mg PO Q6H #28 cap 05/29/19 Diazepam [Valium] 5 mg PO TID PRN 3 Days #9 tab 05/29/19 Allergies Allergy/AdvReac Type Severity Reaction Status Date / Time adalimumab [From Humira] Allergy RASH/NAUSEA/VOMITING/JOINT Verified 06/29/19 17:31 PAIN amoxicillin trihydrate Allergy Rash/Hives Verified 06/29/19 17:31 [From Augmentin] potassium clavulanate Allergy Rash/Hives Verified 06/29/19 17:31 [From Augmentin] Review of Systems ROS Statement: Those systems with pertinent positive or pertinent negative responses have been documented in the HPI. ROS Other: All systems not noted in ROS Statement are negative. Past Medical History Past Medical History: No Reported History Additional Past Medical History / Comment(s): crohns, IBD, colitis dx of crohns at age 10. History of Any Multi-Drug Resistant Organisms: MRSA Date of last positivie culture/infection: 2002 MDRO Source:: Hip Past Surgical History: Bowel Resection, Cholecystectomy Additional Past Surgical History / Comment(s): wisdom teeth, bowel resection x 2 in 2017, sepsis after first surgery Past Psychological History: Anxiety, Depression Smoking Status: Never smoker Past Alcohol Use History: Occasional, Rare Past Drug Use History: None Reported - Past Family History Mother Family Medical History: Cancer General Exam Limitations: no limitations General appearance: alert, in no apparent distress, other (This is a well- developed, well-nourished adult female patient in no acute distress. Vital signs upon presentation are temperature 99.6F, pulse 105, respirations 20, bloo d pressure 123/78, pulse ox 98% on room air.) Eye exam: Present: normal appearance, PERRL, EOMI. Absent: scleral icterus, conjunctival injection, periorbital swelling ENT exam: Present: normal exam, normal oropharynx, mucous membranes moist Respiratory exam: Present: normal lung sounds bilaterally. Absent: respiratory distress, wheezes, rales, rhonchi, stridor Cardiovascular Exam: Present: regular rate, normal rhythm, normal heart sounds. Absent: systolic murmur, diastolic murmur, rubs, gallop, clicks GI/Abdominal exam: Present: soft, tenderness (Generalized worse over the left lower quadrant), normal bowel sounds. Absent: distended, guarding, rebound, rigid Neurological exam: Present: alert, oriented X3, CN II-XII intact Psychiatric exam: Present: normal affect, normal mood Skin exam: Present: warm, dry, intact, normal color. Absent: rash Course Vital Signs 09/17/19 09/17/19 19:40 23:07 Temperature 99.6 F 97.9 F Pulse Rate 105 H 91 Respiratory 20 16 Rate Blood Pressure 123/78 114/78 O2 Sat by Pulse 98 100 Oximetry Medical Decision Making - Medical Decision Making 24-year-old female patient with past history significant for Crohn's disease and partial bowel obstruction presents to the emergency department today for evaluation of severe abdominal pain and vomiting. Patient is unable to keep down any food or fluids. Physical examination did reveal exquisite left lower quadrant tenderness. Labs reviewed and were unremarkable. White blood cell count is normal. Lactic acid is negative. CT abdomen and pelvis was obtained and showed no acute abdomen abnormalities. Did discuss findings and results with the patient. Shows feel better after receiving IV nausea and pain medication here. She'll be discharged follow up with her primary care physician or GI specialist for further evaluation as soon as possible. She verbalizes understanding and agrees with this plan. - Lab Data Result diagrams: 09/17/19 21:19 09/17/19 21:19 Lab Results 09/17/19 09/17/19 09/17/19 Range/Units 20:28 20:28 21:19 WBC 7.6 (3.8-10.6) k/uL RBC 4.00 (3.80-5.40) m/uL Hgb 12.2 (11.4-16.0) gm/dL Hct 36.8 (34.0-46.0) % MCV 92.1 (80.0-100.0) fL MCH 30.5 (25.0-35.0) pg MCHC 33.1 (31.0-37.0) g/dL RDW 13.0 (11.5-15.5) % Plt Count 246 (150-450) k/uL Neutrophils % 50 % Lymphocytes % 39 % Monocytes % 7 % Eosinophils % 1 % Basophils % 1 % Neutrophils # 3.7 (1.3-7.7) k/uL Lymphocytes # 2.9 (1.0-4.8) k/uL Monocytes # 0.6 (0-1.0) k/uL Eosinophils # 0.1 (0-0.7) k/uL Basophils # 0.0 (0-0.2) k/uL Sodium (137-145) mmol/L Potassium (3.5-5.1) mmol/L Chloride (98-107) mmol/L Carbon Dioxide (22-30) mmol/L Anion Gap mmol/L BUN (7-17) mg/dL Creatinine (0.52-1.04) mg/dL Est GFR (CKD-EPI)AfAm (>60 ml/min/1.73 sqM) Est GFR (CKD-EPI)NonAf (>60 ml/min/1.73 sqM) Glucose (74-99) mg/dL Plasma Lactic Acid Rehan (0.7-2.0) mmol/L Calcium (8.4-10.2) mg/dL Total Bilirubin (0.2-1.3) mg/dL AST (14-36) U/L ALT (4-34) U/L Alkaline Phosphatase (38-126) U/L Total Protein (6.3-8.2) g/dL Albumin (3.5-5.0) g/dL Lipase (23-300) U/L Urine Color Yellow Urine Appearance Clear (Clear) Urine pH 5.5 (5.0-8.0) Ur Specific [place] 1.043 H (1.001-1.035) Urine Protein Trace H (Negative) Urine Glucose (UA) Negative (Negative) Urine Ketones Negative (Negative) Urine Blood Negative (Negative) Urine Nitrite Negative (Negative) Urine Bilirubin Negative (Negative) Urine Urobilinogen <2.0 (<2.0) mg/dL Ur Leukocyte Esterase Moderate H (Negative) Urine RBC 8 H (0-5) /hpf Urine WBC 11 H (0-5) /hpf Ur Squamous Epith Cells 1 (0-4) /hpf Urine Bacteria Rare H (None) /hpf Urine Mucus Many H (None) /hpf Urine HCG, Qual Not Detected (Not Detectd) 01/24/20 01/24/20 Range/Units 21:19 21:19 WBC (3.8-10.6) k/uL RBC (3.80-5.40) m/uL Hgb (11.4-16.0) gm/dL Hct (34.0-46.0) % MCV (80.0-100.0) fL MCH (25.0-35.0) pg MCHC (31.0-37.0) g/dL RDW (11.5-15.5) % Plt Count (150-450) k/uL Neutrophils % % Lymphocytes % % Monocytes % % Eosinophils % % Basophils % % Neutrophils # (1.3-7.7) k/uL Lymphocytes # (1.0-4.8) k/uL Monocytes # (0-1.0) k/uL Eosinophils # (0-0.7) k/uL Basophils # (0-0.2) k/uL Sodium 139 (137-145) mmol/L Potassium 4.2 (3.5-5.1) mmol/L Chloride 109 H (98-107) mmol/L Carbon Dioxide 20 L (22-30) mmol/L Anion Gap 10 mmol/L BUN 9 (7-17) mg/dL Creatinine 0.63 (0.52-1.04) mg/dL Est GFR (CKD-EPI)AfAm >90 (>60 ml/min/1.73 sqM) Est GFR (CKD-EPI)NonAf >90 (>60 ml/min/1.73 sqM) Glucose 80 (74-99) mg/dL Plasma Lactic Acid Rehan 1.1 (0.7-2.0) mmol/L Calcium 8.7 (8.4-10.2) mg/dL Total Bilirubin 0.3 (0.2-1.3) mg/dL AST 21 (14-36) U/L ALT 18 (4-34) U/L Alkaline Phosphatase 59 (38-126) U/L Total Protein 6.9 (6.3-8.2) g/dL Albumin 3.9 (3.5-5.0) g/dL Lipase 45 (23-300) U/L Urine Color Urine Appearance (Clear) Urine pH (5.0-8.0) Ur Specific [place] (1.001-1.035) Urine Protein (Negative) Urine Glucose (UA) (Negative) Urine Ketones (Negative) Urine Blood (Negative) Urine Nitrite (Negative) Urine Bilirubin (Negative) Urine Urobilinogen (<2.0) mg/dL Ur Leukocyte Esterase (Negative) Urine RBC (0-5) /hpf Urine WBC (0-5) /hpf Ur Squamous Epith Cells (0-4) /hpf Urine Bacteria (None) /hpf Urine Mucus (None) /hpf Urine HCG, Qual (Not Detectd) - Radiology Data Radiology results: report reviewed, image reviewed CT abdomen and pelvis with contrast was obtained. Report was reviewed in its entirety. Impression by Dr. Sanfodr shows postsurgical changes with apparent right hemicolectomy. No evidence of bowel obstruction. I do not see evidence for inflammatory bowel disease. No significant change compared to old exam. Disposition Clinical Impression: Abdominal pain, Vomiting Disposition: HOME SELF-CARE Condition: Good Instructions (If sedation given, give patient instructions): Acute Nausea and Vomiting (ED), Abdominal Pain (ED) Additional Instructions: Take medications as directed. Start clear liquid diet and advance as tolerated. Follow-up with your primary care physician and GI specialist for further evaluation as soon as possible. Return to the emergency department for any othe r new, worsening, or concerning symptoms. Is patient prescribed a controlled substance at d/c from ED?: No Referrals: Donavan Guzman DO [Primary Care Provider] - 1-2 days Time of Disposition: 23:06
[2019-09-17 22:05] LABS: Basophils % (A) 1 %; Eosinophils # (A) 0.1 k/uL (0-0.7); Eosinophils % (A) 1 %; HCT 36.8 % (34.0-46.0); HGB 12.2 gm/dL (11.4-16.0); Lymphocytes # (A) 2.9 k/uL (1.0-4.8); Lymphocytes % (A) 39 %; MCH 30.5 pg (25.0-35.0); MCHC 33.1 g/dL (31.0-37.0); MCV 92.1 fL (80.0-100.0); Mean Platelet Volume 7.4; Monocytes # (A) 0.6 k/uL (0-1.0); Monocytes % (A) 7 %; Neutrophils # (A) 3.7 k/uL (1.3-7.7); Neutrophils % (A) 50 %; Platelet Count 246 k/uL (150-450); WBC 7.6 k/uL (3.8-10.6)
[2019-09-17 22:16] LABS: ALT 18 U/L (4-34); AST 21 U/L (14-36); African American GFR (CKD) >90 (>60 ml/min/1.73 sqM); Albumin 3.9 g/dL (3.5-5.0); Alkaline Phosphatase 59 U/L (38-126); Anion Gap 10 mmol/L; Blood Urea Nitrogen 9 mg/dL (7-17); Calcium 8.7 mg/dL (8.4-10.2); Carbon Dioxide 20 mmol/L (22-30); Chloride 109 mmol/L (98-107); Glucose 80 mg/dL (74-99); Non-African American GFR(CKD) >90 (>60 ml/min/1.73 sqM); Potassium 4.2 mmol/L (3.5-5.1); Sodium 139 mmol/L (137-145); Total Bilirubin 0.3 mg/dL (0.2-1.3); Total Protein 6.9 g/dL (6.3-8.2)
--- NOTE | 2019-09-17 22:45 | CT ---
EXAMINATION TYPE: CT abdomen pelvis w con DATE OF EXAM: 09/17/2019 COMPARISON: 06/10/2019 HISTORY: abd pain hx chrons CT DLP: 970 mGycm Automated exposure control for dose reduction was used. CONTRAST: Performed with IV Contrast, patient injected with 100 mL of Isovue 300. Multiple axial sections were obtained from the diaphragm to the floor the pelvis with intravenous con trast. FINDINGS: Lung bases are clear. There is no pleural effusion. Heart size is normal. There is no pericardial eff usion. Stomach is intact. Liver spleen pancreas appear normal. Bile ducts are not dilated. There is no adren al mass. Kidneys show satisfactory contrast opacification. There is no hydronephrosis. Ureters are no t dilated. There is no retroperitoneal adenopathy. Bladder distends smoothly. There is no inguinal he rnia. Uterus is small. There is no evidence of a pelvic mass. There are surgical clips in the right mid abdomen. There is broad-based umbilical hernia that contain s transverse colon bowel. There is no sign of a bowel obstruction. There appears to be right hemicole ctomy. There is no ascites. There is no free air. Lumbar spine is intact. Bony pelvis appears intact. IMPRESSION: Postsurgical changes with apparent right hemicolectomy. No evidence of a bowel obstruction. I do not see evidence for inflammatory bowel disease. No significant change compared to old exam.
[2019-09-17 23:07] VITALS: BP 114/78; PULSE 91; RESP 16; TEMP 97.9
== END 2019-09-17 23:53 | disposition home or self-care (01) ==
LOC: EC 19:38
DX: R10.32 Left lower quadrant pain (principal); R11.10 Vomiting, unspecified; R19.7 Diarrhea, unspecified; F32.9 Major depressive disorder, single episode, unspecified; Z79.899 Other long term (current) drug therapy; Z88.0 Allergy status to penicillin; Z88.1 Allergy status to other antibiotic agents; Z88.8 Allergy status to other drugs, medicaments and biological substances
CPT/HCPCS: 36415; 80053; 83605; 83690; 85025; 81001; 81025; 87040; 87086; 74177; 99284; 96374; 96375; 96376; 96361; J2405; J1170; Q9967

== ENCOUNTER 2019-10-04 18:59 | Emergency (ER) | payer MEDICARE, OTHER ==
[2019-10-04] MEDS ORDERED: SODIUM CHLORIDE 0.9% 1,000 ML IV STA (19:50)
[2019-10-04] MEDS ORDERED: HYDROmorphone 1 MG/ML 1 ML SYRINGE IVP STA (19:50)
[2019-10-04] MEDS ORDERED: ONDANSETRON 4 MG/2 ML VIAL IVP STA (19:50)
--- NOTE | 2019-10-04 20:11 | ED ---
Abdominal Pain HPI - General Chief Complaint: Abdominal Pain Stated Complaint: Crohns flare up Time Seen by Provider: 10/04/19 19:31 Source: patient Mode of arrival: ambulatory Limitations: no limitations - History of Present Illness Initial Comments: Patient is a 24-year-old female, with medical history of Crohn's, is any to emergency Department with complaints of abdominal pain, nausea, diarrhea times one week. Patient states she has been unable to take her steroids, pain medicine or Zofran medicine because she has been vomiting right back up. P atient has not been able to drink even a little bit of water. Patient continues to have diarrhea the past week as well. Patient was recently treated for C. diff. She was recently retested which was negative. She is not currently on any antibiotics. She states she does have an appointment with a specialist in one week but states this flareup is really bad and since she's not been able to take any of her medications for the past few days, so she came to the ER for pain control and nausea meds. She denies any fever, chest pain, shortness of breath. She has no other complaints at this time. Upon arrival to the ER her vitals are stable. - Related Data Home Medications Medication Instructions Recorded Confirmed Ustekinumab [Stelara] 45 mg SQ Q56D 01/04/18 04/15/19 Medroxyprogesterone Acetate 150 mg IM Q90D 03/10/18 04/15/19 [Depo-Provera] Amitriptyline HCl 20 mg PO HS 04/11/18 04/15/19 Benztropine Mesylate [Cogentin] 1.5 mg PO BID 12/01/18 04/15/19 Melatonin 10 mg PO HS PRN 12/01/18 04/15/19 hydrOXYzine PAMOATE [Vistaril] 100 mg PO TID 12/01/18 04/15/19 Lurasidone [Latuda] 80 mg PO HS 03/07/19 04/15/19 Vitamin C/Biotin [Hair, Skin and 1 tab PO DAILY 04/15/19 04/15/19 Nails] oxyCODONE HCL/ACETAMINOPHEN 1 tab PO Q4HR PRN 04/15/19 04/15/19 [Percocet 10-325 mg] Previous Rx's Medication Instructions Recorded Ondansetron Odt [Zofran Odt] 4 mg PO Q8HR PRN #12 tab 03/07/19 Diazepam [Valium] 10 mg PO Q6H PRN 3 Days #12 tab 04/15/19 Cephalexin [Keflex] 500 mg PO Q6H #28 cap 05/29/19 Diazepam [Valium] 5 mg PO TID PRN 3 Days #9 tab 05/29/19 Ondansetron Odt [Zofran Odt] 4 mg PO Q8HR PRN #15 tab 10/04/19 Allergies Allergy/AdvReac Type Severity Reaction Status Date / Time adalimumab [From Humira] Allergy RASH/NAUSEA/VOMITING/JOINT Verified 06/29/19 17:31 PAIN amoxicillin trihydrate Allergy Rash/Hives Verified 06/29/19 17:31 [From Augmentin] potassium clavulanate Allergy Rash/Hives Verified 06/29/19 17:31 [From Augmentin] Review of Systems ROS Statement: Those systems with pertinent positive or pertinent negative responses have been documented in the HPI. ROS Other: All systems not noted in ROS Statement are negative. Past Medical History Past Medical History: No Reported History Additional Past Medical History / Comment(s): crohns, IBD, colitis dx of crohns at age 10. History of Any Multi-Drug Resistant Organisms: MRSA Date of last positivie culture/infection: 2002 MDRO Source:: Hip Past Surgical History: Bowel Resection, Cholecystectomy Additional Past Surgical History / Comment(s): wisdom teeth, bowel resection x 2 in 2017, sepsis after first surgery Past Psychological History: Anxiety, Depression Smoking Status: Never smoker Past Alcohol Use History: None Reported Past Drug Use History: None Reported - Past Family History Mother Family Medical History: Cancer General Exam - General Exam Comments Initial Comments: GENERAL: Well-appearing, well-nourished and in no acute distress, but appears uncomfortable. HEAD: Atraumatic, normocephalic. EYES: Pupils equal round and reactive to light, extraocular movements intact, sclera anicteric, conjunctiva are normal. ENT: TMs normal, nares patent, oropharynx clear without exudates. Moist mucous membranes. NECK: Normal range of motion, supple without lymphadenopathy or JVD. LUNGS: Breath sounds clear to auscultation bilaterally and equal. No wheezes rales or rhonchi. HEART: Regular rate and rhythm without murmurs, rubs or gallops. ABDOMEN: Generalized abdominal tenderness, slightly increased in the lower abdomen region. Soft, hyperactive bowel sounds. No guarding, no rebound. No masses appreciated. : Deferred EXTREMITIES: Normal range of motion, no pitting or edema. No clubbing or cyanosis. NEUROLOGICAL: Normal speech, normal gait. PSYCH: Normal mood, normal affect. SKIN: Warm, Dry, normal turgor, no rashes or lesions noted. Limitations: no limitations Course Vital Signs 10/04/19 10/04/19 19:08 21:30 Temperature 98.9 F 98 F Pulse Rate 104 H 79 Respiratory 18 16 Rate Blood Pressure 113/75 112/68 O2 Sat by Pulse 99 100 Oximetry Medical Decision Making - Medical Decision Making Patient is a 24-year-old female presenting with a Crohn's flareup. Patient has been having nausea, vomiting material diarrhea for the past 3 days. Patient was given fluids, pain control, nausea medicines and reports improvement in her sym ptoms. Lab work shows no acute abnormalities today. She is requesting to be discharged. Patient will be sent home with Manpreet for her nausea and she will continue with her Joshua prescribed pain meds and steroids. She will follow up with the specialist. Return parameters were discussed with the patient she verbalized understanding. She is in agreement with this plan of care. - Lab Data Result diagrams: 10/04/19 20:06 10/04/19 20:06 Lab Results 10/04/19 10/04/19 10/04/19 Range/Units 20:06 20:06 20:06 WBC 6.3 (3.8-10.6) k/uL RBC 4.21 (3.80-5.40) m/uL Hgb 12.9 (11.4-16.0) gm/dL Hct 38.3 (34.0-46.0) % MCV 91.1 (80.0-100.0) fL MCH 30.8 (25.0-35.0) pg MCHC 33.8 (31.0-37.0) g/dL RDW 12.7 (11.5-15.5) % Plt Count 287 (150-450) k/uL Neutrophils % 54 % Lymphocytes % 36 % Monocytes % 5 % Eosinophils % 2 % Basophils % 1 % Neutrophils # 3.4 (1.3-7.7) k/uL Lymphocytes # 2.2 (1.0-4.8) k/uL Monocytes # 0.3 (0-1.0) k/uL Eosinophils # 0.1 (0-0.7) k/uL Basophils # 0.0 (0-0.2) k/uL Sodium 136 L (137-145) mmol/L Potassium 4.4 (3.5-5.1) mmol/L Chloride 106 (98-107) mmol/L Carbon Dioxide 23 (22-30) mmol/L Anion Gap 7 mmol/L BUN 10 (7-17) mg/dL Creatinine 0.55 (0.52-1.04) mg/dL Est GFR (CKD-EPI)AfAm >90 (>60 ml/min/1.73 sqM) Est GFR (CKD-EPI)NonAf >90 (>60 ml/min/1.73 sqM) Glucose 88 (74-99) mg/dL Calcium 9.1 (8.4-10.2) mg/dL Total Bilirubin 0.3 (0.2-1.3) mg/dL AST 30 (14-36) U/L ALT 22 (4-34) U/L Alkaline Phosphatase 66 (38-126) U/L Total Protein 7.2 (6.3-8.2) g/dL Albumin 4.2 (3.5-5.0) g/dL Urine Color Urine Appearance (Clear) Urine pH (5.0-8.0) Ur Specific [place] (1.001-1.035) Urine Protein (Negative) Urine Glucose (UA) (Negative) Urine Ketones (Negative) Urine Blood (Negative) Urine Nitrite (Negative) Urine Bilirubin (Negative) Urine Urobilinogen (<2.0) mg/dL Ur Leukocyte Esterase (Negative) Urine HCG, Qual Not Detected (Not Detectd) 10/04/19 Range/Units 20:06 WBC (3.8-10.6) k/uL RBC (3.80-5.40) m/uL Hgb (11.4-16.0) gm/dL Hct (34.0-46.0) % MCV (80.0-100.0) fL MCH (25.0-35.0) pg MCHC (31.0-37.0) g/dL RDW (11.5-15.5) % Plt Count (150-450) k/uL Neutrophils % % Lymphocytes % % Monocytes % % Eosinophils % % Basophils % % Neutrophils # (1.3-7.7) k/uL Lymphocytes # (1.0-4.8) k/uL Monocytes # (0-1.0) k/uL Eosinophils # (0-0.7) k/uL Basophils # (0-0.2) k/uL Sodium (137-145) mmol/L Potassium (3.5-5.1) mmol/L Chloride (98-107) mmol/L Carbon Dioxide (22-30) mmol/L Anion Gap mmol/L BUN (7-17) mg/dL Creatinine (0.52-1.04) mg/dL Est GFR (CKD-EPI)AfAm (>60 ml/min/1.73 sqM) Est GFR (CKD-EPI)NonAf (>60 ml/min/1.73 sqM) Glucose (74-99) mg/dL Calcium (8.4-10.2) mg/dL Total Bilirubin (0.2-1.3) mg/dL AST (14-36) U/L ALT (4-34) U/L Alkaline Phosphatase (38-126) U/L Total Protein (6.3-8.2) g/dL Albumin (3.5-5.0) g/dL Urine Color Yellow Urine Appearance Clear (Clear) Urine pH 7.5 (5.0-8.0) Ur Specific [place] 1.021 (1.001-1.035) Urine Protein Negative (Negative) Urine Glucose (UA) Negative (Negative) Urine Ketones Negative (Negative) Urine Blood Negative (Negative) Urine Nitrite Negative (Negative) Urine Bilirubin Negative (Negative) Urine Urobilinogen <2.0 (<2.0) mg/dL Ur Leukocyte Esterase Negative (Negative) Urine HCG, Qual (Not Detectd) Disposition Clinical Impression: Crohn's disease, Abdominal pain, Nausea and vomiting Disposition: HOME SELF-CARE Condition: Stable Instructions (If sedation given, give patient instructions): Crohn Disease (ED) Additional Instructions: Please return to the Emergency Department if symptoms worsen or any other concerns. Follow-up with specialist as discussed. Prescriptions: Ondansetron Odt [Zofran Odt] 4 mg PO Q8HR PRN #15 tab PRN Reason: Nausea Is patient prescribed a controlled substance at d/c from ED?: No Referrals: Donavan Guzman DO [Primary Care Provider] - 1-2 days
[2019-10-04 20:31] LABS: Appearance,Urine Clear (Clear); Bilirubin,Urine Negative (Negative); Blood,Urine Negative (Negative); Color,Urine Yellow; Glucose,Urine (UA) Negative (Negative); Ketones,Urine Negative (Negative); Leukocyte Esterase,Urine Negative (Negative); Nitrite,Urine Negative (Negative); PH, Urine 7.5 (5.0-8.0); Protein,Urine Negative (Negative); Specific Gravity,Urine 1.021 (1.001-1.035); Urobilinogen,Urine <2.0 mg/dL (<2.0)
[2019-10-04 20:32] LABS: Basophils % (A) 1 %; Eosinophils # (A) 0.1 k/uL (0-0.7); Eosinophils % (A) 2 %; HCT 38.3 % (34.0-46.0); HGB 12.9 gm/dL (11.4-16.0); Lymphocytes # (A) 2.2 k/uL (1.0-4.8); Lymphocytes % (A) 36 %; MCH 30.8 pg (25.0-35.0); MCHC 33.8 g/dL (31.0-37.0); MCV 91.1 fL (80.0-100.0); Mean Platelet Volume 7.4; Monocytes # (A) 0.3 k/uL (0-1.0); Monocytes % (A) 5 %; Neutrophils # (A) 3.4 k/uL (1.3-7.7); Neutrophils % (A) 54 %; Platelet Count 287 k/uL (150-450); RBC 4.21 m/uL (3.80-5.40); RDW 12.7 % (11.5-15.5); WBC 6.3 k/uL (3.8-10.6)
[2019-10-04 20:39] LABS: ALT 22 U/L (4-34); AST 30 U/L (14-36); African American GFR (CKD) >90 (>60 ml/min/1.73 sqM); Albumin 4.2 g/dL (3.5-5.0); Alkaline Phosphatase 66 U/L (38-126); Anion Gap 7 mmol/L; Blood Urea Nitrogen 10 mg/dL (7-17); Calcium 9.1 mg/dL (8.4-10.2); Carbon Dioxide 23 mmol/L (22-30); Chloride 106 mmol/L (98-107); Glucose 88 mg/dL (74-99); Non-African American GFR(CKD) >90 (>60 ml/min/1.73 sqM); Potassium 4.4 mmol/L (3.5-5.1); Sodium 136 mmol/L (137-145); Total Bilirubin 0.3 mg/dL (0.2-1.3); Total Protein 7.2 g/dL (6.3-8.2)
[2019-10-04 21:30] VITALS: BP 112/68; PULSE 79; RESP 16; TEMP 98
[2019-10-04] MEDS ORDERED: ONDANSETRON 4 MG ODT STARTER PACK 2 TAB BTL PO STA (21:37)
[2019-10-04] MEDS ORDERED: HYDROmorphone 0.5 MG/0.5 ML SYRINGE IVP STA (21:37)
== END 2019-10-04 21:58 | disposition home or self-care (01) ==
LOC: EC 18:59
DX: K50.90 Crohn's disease, unspecified, without complications (principal); F32.9 Major depressive disorder, single episode, unspecified; F41.9 Anxiety disorder, unspecified; Z88.0 Allergy status to penicillin; Z88.1 Allergy status to other antibiotic agents; Z88.8 Allergy status to other drugs, medicaments and biological substances; Z79.3 Long term (current) use of hormonal contraceptives; Z79.899 Other long term (current) drug therapy; Z86.14 Personal history of Methicillin resistant Staphylococcus aureus infection; Z90.49 Acquired absence of other specified parts of digestive tract
CPT/HCPCS: 36415; 80053; 85025; 81003; 81025; 99284; 96374; 96375; 96376; 96361 ×2; J2405; J1170 ×2; S0119

== ENCOUNTER 2019-10-07 20:26 | Emergency (ER) | payer MEDICARE, OTHER ==
[2019-10-07 20:42] VITALS: TEMP 98.7
[2019-10-07] MEDS ORDERED: methylPREDNISolone SOD SUCCI 125 MG/2 ML VIAL IV STA (21:36)
[2019-10-07] MEDS ORDERED: ONDANSETRON 4 MG/2 ML VIAL IVP STA (21:36)
[2019-10-07] MEDS ORDERED: SODIUM CHLORIDE 0.9% 1,000 ML IV STA (21:36)
[2019-10-07] MEDS ORDERED: HYDROmorphone 1 MG/ML 1 ML SYRINGE IVP STA ×2 (21:36→23:16)
--- NOTE | 2019-10-07 22:25 | ED ---
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 She is presenting with periumbilical abdominal pain, vomiting, and no stool for the past 3 days. She has history of obstruction, states he symptoms are similar to previous obstruction in the past. She denies fever or chills. Denies dysuria or hematuria. Denies possibility of . - Related Data Home Medications Medication Instructions Recorded Confirmed Ustekinumab [Stelara] 45 mg SQ Q56D 01/04/18 04/15/19 Medroxyprogesterone Acetate 150 mg IM Q90D 03/10/18 04/15/19 [Depo-Provera] Amitriptyline HCl 20 mg PO HS 04/11/18 04/15/19 Benztropine Mesylate [Cogentin] 1.5 mg PO BID 12/01/18 04/15/19 Melatonin 10 mg PO HS PRN 12/01/18 04/15/19 hydrOXYzine PAMOATE [Vistaril] 100 mg PO TID 12/01/18 04/15/19 Lurasidone [Latuda] 80 mg PO HS 03/07/19 04/15/19 Vitamin C/Biotin [Hair, Skin and 1 tab PO DAILY 04/15/19 04/15/19 Nails] oxyCODONE HCL/ACETAMINOPHEN 1 tab PO Q4HR PRN 04/15/19 04/15/19 [Percocet 10-325 mg] Previous Rx's Medication Instructions Recorded Ondansetron Odt [Zofran Odt] 4 mg PO Q8HR PRN #12 tab 03/07/19 Diazepam [Valium] 10 mg PO Q6H PRN 3 Days #12 tab 04/15/19 Cephalexin [Keflex] 500 mg PO Q6H #28 cap 05/29/19 Diazepam [Valium] 5 mg PO TID PRN 3 Days #9 tab 10/05/19 Ondansetron Odt [Zofran Odt] 4 mg PO Q8HR PRN #15 tab 10/04/19 Allergies Allergy/AdvReac Type Severity Reaction Status Date / Time adalimumab [From Humira] Allergy RASH/NAUSEA/VOMITING/JOINT Verified 10/07/19 20:41 PAIN amoxicillin trihydrate Allergy Rash/Hives Verified 10/07/19 20:41 [From Augmentin] potassium clavulanate Allergy Rash/Hives Verified 10/07/19 20:41 [From Augmentin] Review of Systems ROS Statement: Those systems with pertinent positive or pertinent negative responses have been documented in the HPI. ROS Other: All systems not noted in ROS Statement are negative. Past Medical History Past Medical History: No Reported History Additional Past Medical History / Comment(s): crohns, IBD, colitis dx of crohns at age 10. History of Any Multi-Drug Resistant Organisms: MRSA Date of last positivie culture/infection: 2002, Jul 2019 cdiff MDRO Source:: Hip Past Surgical History: Bowel Resection, Cholecystectomy Additional Past Surgical History / Comment(s): wisdom teeth, bowel resection x 2 in 2017, sepsis after first surgery Past Psychological History: Anxiety, Depression Smoking Status: Never smoker Past Alcohol Use History: None Reported Past Drug Use History: None Reported - Past Family History Mother Family Medical History: Cancer General Exam Limitations: no limitations General appearance: alert, in no apparent distress Head exam: Present: atraumatic, normocephalic Eye exam: Present: normal appearance, PERRL ENT exam: Present: normal exam, mucous membranes moist Neck exam: Present: normal inspection. Absent: tenderness, meningismus Respiratory exam: Present: normal lung sounds bilaterally. Absent: respiratory distress, wheezes Cardiovascular Exam: Present: regular rate, normal rhythm GI/Abdominal exam: Present: soft, tenderness. Absent: distended, guarding, rebound Extremities exam: Present: normal inspection, normal capillary refill. Absent: pedal edema Neurological exam: Present: alert, oriented X3, CN II-XII intact. Absent: motor sensory deficit Psychiatric exam: Present: normal affect, normal mood Skin exam: Present: warm, dry, intact. Absent: cyanosis, diaphoretic Course Vital Signs 10/07/19 20:39 Temperature 98.7 F Pulse Rate 86 Respiratory 16 Rate Blood Pressure 112/79 O2 Sat by Pulse 99 Oximetry Medical Decision Making - Medical Decision Making 24-year-old female history of Crohn's presenting for abdominal pain and nausea vomiting. Patient is nondistended, minimal generalized abdominal tenderness. Stable vitals. She has a normal CBC, normal CMP, normal urinalysis with no ketones, no lactic acidosis no signs of dehydration. X-ray negative for obstruction, there is some stool in the rectum and descending colon. After initial dose of steroids, antiemetics and pain control she is feeling much bett er. 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 She is currently on steroids 40 mg prednisone daily she will continue this. - Lab Data Result diagrams: 10/07/19 22:15 10/07/19 22:15 Lab Results 10/07/19 10/07/19 10/07/19 Range/Units 22:15 22:15 22:15 WBC 6.2 (3.8-10.6) k/uL RBC 4.26 (3.80-5.40) m/uL Hgb 12.9 (11.4-16.0) gm/dL Hct 38.5 (34.0-46.0) % MCV 90.5 (80.0-100.0) fL MCH 30.3 (25.0-35.0) pg MCHC 33.5 (31.0-37.0) g/dL RDW 12.4 (11.5-15.5) % Plt Count 281 (150-450) k/uL Neutrophils % 51 % Lymphocytes % 39 % Monocytes % 5 % Eosinophils % 3 % Basophils % 1 % Neutrophils # 3.1 (1.3-7.7) k/uL Lymphocytes # 2.4 (1.0-4.8) k/uL Monocytes # 0.3 (0-1.0) k/uL Eosinophils # 0.2 (0-0.7) k/uL Basophils # 0.0 (0-0.2) k/uL Sodium 139 (137-145) mmol/L Potassium 3.7 (3.5-5.1) mmol/L Chloride 104 (98-107) mmol/L Carbon Dioxide 24 (22-30) mmol/L Anion Gap 11 mmol/L BUN 7 (7-17) mg/dL Creatinine 0.63 (0.52-1.04) mg/dL Est GFR (CKD-EPI)AfAm >90 (>60 ml/min/1.73 sqM) Est GFR (CKD-EPI)NonAf >90 (>60 ml/min/1.73 sqM) Glucose 90 (74-99) mg/dL Plasma Lactic Acid Rehan (0.7-2.0) mmol/L Calcium 9.1 (8.4-10.2) mg/dL Total Bilirubin 0.2 (0.2-1.3) mg/dL AST 22 (14-36) U/L ALT 20 (4-34) U/L Alkaline Phosphatase 66 (38-126) U/L Total Protein 7.3 (6.3-8.2) g/dL Albumin 4.2 (3.5-5.0) g/dL Lipase 57 (23-300) U/L Urine Color Urine Appearance (Clear) Urine pH (5.0-8.0) Ur Specific [place] (1.001-1.035) Urine Protein (Negative) Urine Glucose (UA) (Negative) Urine Ketones (Negative) Urine Blood (Negative) Urine Nitrite (Negative) Urine Bilirubin (Negative) Urine Urobilinogen (<2.0) mg/dL Ur Leukocyte Esterase (Negative) Urine HCG, Qual Not Detected (Not Detectd) 10/07/19 10/07/19 Range/Units 22:15 22:15 WBC (3.8-10.6) k/uL RBC (3.80-5.40) m/uL Hgb (11.4-16.0) gm/dL Hct (34.0-46.0) % MCV (80.0-100.0) fL MCH (25.0-35.0) pg MCHC (31.0-37.0) g/dL RDW (11.5-15.5) % Plt Count (150-450) k/uL Neutrophils % % Lymphocytes % % Monocytes % % Eosinophils % % Basophils % % Neutrophils # (1.3-7.7) k/uL Lymphocytes # (1.0-4.8) k/uL Monocytes # (0-1.0) k/uL Eosinophils # (0-0.7) k/uL Basophils # (0-0.2) k/uL Sodium (137-145) mmol/L Potassium (3.5-5.1) mmol/L Chloride (98-107) mmol/L Carbon Dioxide (22-30) mmol/L Anion Gap mmol/L BUN (7-17) mg/dL Creatinine (0.52-1.04) mg/dL Est GFR (CKD-EPI)AfAm (>60 ml/min/1.73 sqM) Est GFR (CKD-EPI)NonAf (>60 ml/min/1.73 sqM) Glucose (74-99) mg/dL Plasma Lactic Acid Rehan 0.8 (0.7-2.0) mmol/L Calcium (8.4-10.2) mg/dL Total Bilirubin (0.2-1.3) mg/dL AST (14-36) U/L ALT (4-34) U/L Alkaline Phosphatase (38-126) U/L Total Protein (6.3-8.2) g/dL Albumin (3.5-5.0) g/dL Lipase (23-300) U/L Urine Color Yellow Urine Appearance Clear (Clear) Urine pH 5.5 (5.0-8.0) Ur Specific [place] 1.016 (1.001-1.035) Urine Protein Negative (Negative) Urine Glucose (UA) Negative (Negative) Urine Ketones Negative (Negative) Urine Blood Negative (Negative) Urine Nitrite Negative (Negative) Urine Bilirubin Negative (Negative) Urine Urobilinogen <2.0 (<2.0) mg/dL Ur Leukocyte Esterase Negative (Negative) Urine HCG, Qual (Not Detectd) Disposition Clinical Impression: Nausea and vomiting, Crohn's disease Disposition: HOME SELF-CARE Condition: Good Instructions (If sedation given, give patient instructions): Acute Nausea and Vomiting (ED), Crohn Disease (ED) Is patient prescribed a controlled substance at d/c from ED?: No Referrals: Donavan Guzman DO [Primary Care Provider] - 1-2 days Time of Disposition: 23:18
[2019-10-07 22:30] LABS: Appearance,Urine Clear (Clear); Bilirubin,Urine Negative (Negative); Blood,Urine Negative (Negative); Color,Urine Yellow; Glucose,Urine (UA) Negative (Negative); Ketones,Urine Negative (Negative); Leukocyte Esterase,Urine Negative (Negative); Nitrite,Urine Negative (Negative); PH, Urine 5.5 (5.0-8.0); Protein,Urine Negative (Negative); Specific Gravity,Urine 1.016 (1.001-1.035); Urobilinogen,Urine <2.0 mg/dL (<2.0)
[2019-10-07 22:32] LABS: Basophils % (A) 1 %; Eosinophils # (A) 0.2 k/uL (0-0.7); Eosinophils % (A) 3 %; HCT 38.5 % (34.0-46.0); HGB 12.9 gm/dL (11.4-16.0); Lymphocytes # (A) 2.4 k/uL (1.0-4.8); Lymphocytes % (A) 39 %; MCH 30.3 pg (25.0-35.0); MCHC 33.5 g/dL (31.0-37.0); MCV 90.5 fL (80.0-100.0); Mean Platelet Volume 7.3; Monocytes # (A) 0.3 k/uL (0-1.0); Monocytes % (A) 5 %; Neutrophils # (A) 3.1 k/uL (1.3-7.7); Neutrophils % (A) 51 %; Platelet Count 281 k/uL (150-450); RBC 4.26 m/uL (3.80-5.40); RDW 12.4 % (11.5-15.5); WBC 6.2 k/uL (3.8-10.6)
[2019-10-07 22:38] LABS: ALT 20 U/L (4-34); AST 22 U/L (14-36); African American GFR (CKD) >90 (>60 ml/min/1.73 sqM); Albumin 4.2 g/dL (3.5-5.0); Alkaline Phosphatase 66 U/L (38-126); Anion Gap 11 mmol/L; Blood Urea Nitrogen 7 mg/dL (7-17); Calcium 9.1 mg/dL (8.4-10.2); Carbon Dioxide 24 mmol/L (22-30); Chloride 104 mmol/L (98-107); Glucose 90 mg/dL (74-99); Non-African American GFR(CKD) >90 (>60 ml/min/1.73 sqM); Potassium 3.7 mmol/L (3.5-5.1); Sodium 139 mmol/L (137-145); Total Bilirubin 0.2 mg/dL (0.2-1.3); Total Protein 7.3 g/dL (6.3-8.2)
--- NOTE | 2019-10-07 22:38 | XR ---
EXAMINATION TYPE: XR KUB DATE OF EXAM: 10/07/2019 COMPARISON: 06/10/2019 HISTORY: Abdominal pain TECHNIQUE: 2 views upright FINDINGS: Bowel gas pattern is normal. There is no sign of intestinal obstruction or pneumoperitoneum . Fecal pattern is normal. Lung bases are clear. There are no pathologic calcifications over the kidn eys. There are probably some surgical clips in the right mid abdomen. IMPRESSION: Nonacute abdomen.
[2019-10-07 23:55] VITALS: BP 111/75; PULSE 77; RESP 18
== END 2019-10-08 00:09 | disposition home or self-care (01) ==
LOC: EC 20:26
DX: K50.90 Crohn's disease, unspecified, without complications (principal); R11.2 Nausea with vomiting, unspecified; F32.9 Major depressive disorder, single episode, unspecified; F41.9 Anxiety disorder, unspecified; Z88.0 Allergy status to penicillin; Z88.1 Allergy status to other antibiotic agents; Z88.8 Allergy status to other drugs, medicaments and biological substances; Z79.899 Other long term (current) drug therapy; Z90.49 Acquired absence of other specified parts of digestive tract; Z87.19 Personal history of other diseases of the digestive system; Z86.14 Personal history of Methicillin resistant Staphylococcus aureus infection
CPT/HCPCS: 99284; 96374; 96375 ×2; 96376; 96361 ×2; 36415; 80053; 83605; 83690; 85025; 81003; 81025; 74018; J2930; J2405; J1170

== ENCOUNTER 2019-11-14 21:25 | Emergency (ER) | payer MEDICARE, OTHER ==
[2019-11-14 21:34] VITALS: RESP 18
[2019-11-14] MEDS ORDERED: SODIUM CHLORIDE 0.9% 1,000 ML IV STA (21:39)
[2019-11-14 22:19] LABS: Amorphous Sediment,Urine Occasional /hpf; Appearance,Urine Cloudy (Clear); Bacteria,Urine Rare /hpf; Bilirubin,Urine Negative (Negative); Blood,Urine Negative (Negative); Color,Urine Yellow; Glucose,Urine (UA) Negative (Negative); Hyaline Casts,Urine 1 /lpf (0-2); Ketones,Urine Negative (Negative); Leukocyte Esterase,Urine Small (Negative); Mucus,Urine Rare /hpf; Nitrite,Urine Negative (Negative); Protein,Urine Trace (Negative); Specific Gravity,Urine 1.033 (1.001-1.035); Squamous Epithelial Cell,Urine 3 /hpf (0-4); Urobilinogen,Urine <2.0 mg/dL (<2.0); WBC,Urine 3 /hpf (0-5)
[2019-11-14] MEDS ORDERED: ONDANSETRON 4 MG/2 ML VIAL IVP STA (22:28)
[2019-11-14] MEDS ORDERED: methylPREDNISolone SOD SUCCI 125 MG/2 ML VIAL IV STA (22:28)
[2019-11-14] MEDS ORDERED: HYDROmorphone 0.5 MG/0.5 ML SYRINGE IVP STA ×2 (22:28→23:44)
--- NOTE | 2019-11-14 22:28 | ED ---
General Adult HPI - General Chief complaint: Abdominal Pain Stated complaint: Crohn's complications Time Seen by Provider: 11/14/19 21:38 Source: patient, RN notes reviewed Mode of arrival: ambulatory Limitations: no limitations - History of Present Illness Initial comments: 24-year-old female with a past medical history of Crohn's, IBD, colitis presents to the emergency department for a chief complaint of nausea and vomiting. Patient states she has been having nausea and vomiting for the past 3 weeks. States that this is been brownish red in color but denies any blood in the vomit. Patient states that she has been taking Zofran and Reglan at home without improvement. Patient is now for the past 4 days she has not had a bowel movement. States that before that she was having diarrhea. Patient has no other complaints at this time including shortness of breath, chest pain, headache, or visual changes. - Related Data Home Medications Medication Instructions Recorded Confirmed Ustekinumab [Stelara] 45 mg SQ Q56D 01/04/18 04/15/19 Medroxyprogesterone Acetate 150 mg IM Q90D 03/10/18 04/15/19 [Depo-Provera] Amitriptyline HCl 20 mg PO HS 04/11/18 04/15/19 Benztropine Mesylate [Cogentin] 1.5 mg PO BID 12/01/18 04/15/19 Melatonin 10 mg PO HS PRN 12/01/18 04/15/19 hydrOXYzine PAMOATE [Vistaril] 100 mg PO TID 12/01/18 04/15/19 Lurasidone [Latuda] 80 mg PO HS 03/07/19 04/15/19 Vitamin C/Biotin [Hair, Skin and 1 tab PO DAILY 04/15/19 04/15/19 Nails] oxyCODONE HCL/ACETAMINOPHEN 1 tab PO Q4HR PRN 04/15/19 04/15/19 [Percocet 10-325 mg] Previous Rx's Medication Instructions Recorded Ondansetron Odt [Zofran Odt] 4 mg PO Q8HR PRN #12 tab 03/07/19 Diazepam [Valium] 10 mg PO Q6H PRN 3 Days #12 tab 04/15/19 Cephalexin [Keflex] 500 mg PO Q6H #28 cap 05/29/19 Diazepam [Valium] 5 mg PO TID PRN 3 Days #9 tab 05/29/19 Ondansetron Odt [Zofran Odt] 4 mg PO Q8HR PRN #15 tab 10/04/19 Cephalexin [Keflex] 500 mg PO BID 5 Days #9 cap 10/17/19 predniSONE 50 mg PO DAILY #5 tablet 11/14/19 Allergies Allergy/AdvReac Type Severity Reaction Status Date / Time adalimumab [From Humira] Allergy RASH/NAUSEA/VOMITING/JOINT Verified 10/17/19 19:45 PAIN amoxicillin trihydrate Allergy Rash/Hives Verified 10/17/19 19:45 [From Augmentin] potassium clavulanate Allergy Rash/Hives Verified 10/17/19 19:45 [From Augmentin] Review of Systems ROS Statement: Those systems with pertinent positive or pertinent negative responses have been documented in the HPI. ROS Other: All systems not noted in ROS Statement are negative. Past Medical History Past Medical History: No Reported History Additional Past Medical History / Comment(s): crohns, IBD, colitis dx of crohns at age 10. History of Any Multi-Drug Resistant Organisms: MRSA Date of last positivie culture/infection: 2002, Jul 2019 cdiff MDRO Source:: Hip Past Surgical History: Bowel Resection, Cholecystectomy Additional Past Surgical History / Comment(s): wisdom teeth, bowel resection x 2 in 2017, sepsis after first surgery Past Psychological History: Anxiety, Depression Smoking Status: Never smoker Past Alcohol Use History: None Reported Past Drug Use History: None Reported - Past Family History Mother Family Medical History: Cancer General Exam Limitations: no limitations General appearance: alert, in no apparent distress Head exam: Present: atraumatic, normocephalic, normal inspection Eye exam: Present: normal appearance, PERRL, EOMI. Absent: scleral icterus, conjunctival injection, periorbital swelling ENT exam: Present: normal exam, mucous membranes moist Neck exam: Present: normal inspection, full ROM. Absent: tenderness, meningismus, lymphadenopathy Respiratory exam: Present: normal lung sounds bilaterally. Absent: respiratory distress, wheezes, rales, rhonchi, stridor Cardiovascular Exam: Present: regular rate, normal rhythm, normal heart sounds. Absent: systolic murmur, diastolic murmur, rubs, gallop, clicks GI/Abdominal exam: Present: soft, tenderness (minimal generalized abdominal tenderness), normal bowel sounds. Absent: distended, guarding, rebound, rigid Neurological exam: Present: alert Psychiatric exam: Present: normal affect, normal mood Course Vital Signs 11/14/19 21:29 Temperature 99.4 F Pulse Rate 110 H Respiratory 18 Rate Blood Pressure 129/89 O2 Sat by Pulse 99 Oximetry Medical Decision Making - Medical Decision Making Patient initially presents tachycardic but is in pain. This is likely secondary to pain. On abdominal exam patient does have some mild generalized abdominal tenderness. There is no guarding or rebound. CBC CMP unremarkable. White bl ood cell count is normal. Urinalysis is unremarkable as well. X-ray KUB shows a nonacute abdomen. No sign of intestinal obstruction or pneumoperitoneum. On review, patient does appear constipated on films. Patient was reevaluated after 1 dose of pain medications and is actually feeling much better. Abdomen was reevaluated and is now nontender. Patient currently taking stellara. She was given IV Solu-Medrol. I discussed inpatient versus outpatient treatment and given current epidemic patient prefers to be managed outpatient and she is feeling much better. However I did discuss strict return parameters if she has any worsening symptoms. She will be put on a few days of steroids at home. She will also take MiraLAX for constipation. She will follow up with her GI doctors out of [place]. She'll return here for any worsening symptoms. I discussed this case with attending Dr. Ramires who agrees with this assessment and treatment plan. - Lab Data Result diagrams: 11/14/19 22:22 11/14/19 22:22 Lab Results 11/14/19 11/14/19 11/14/19 Range/Units 22:10 22:10 : WBC 5.6 (3.8-10.6) k/uL RBC 3.90 (3.80-5.40) m/uL Hgb 11.8 (11.4-16.0) gm/dL Hct 35.5 (34.0-46.0) % MCV 90.9 (80.0-100.0) fL MCH 30.1 (25.0-35.0) pg MCHC 33.1 (31.0-37.0) g/dL RDW 12.0 (11.5-15.5) % Plt Count 259 (150-450) k/uL Neutrophils % 47 % Lymphocytes % 41 % Monocytes % 7 % Eosinophils % 2 % Basophils % 1 % Neutrophils # 2.6 (1.3-7.7) k/uL Lymphocytes # 2.3 (1.0-4.8) k/uL Monocytes # 0.4 (0-1.0) k/uL Eosinophils # 0.1 (0-0.7) k/uL Basophils # 0.0 (0-0.2) k/uL Sodium (137-145) mmol/L Potassium (3.5-5.1) mmol/L Chloride (98-107) mmol/L Carbon Dioxide (22-30) mmol/L Anion Gap mmol/L BUN (7-17) mg/dL Creatinine (0.52-1.04) mg/dL Est GFR (CKD-EPI)AfAm (>60 ml/min/1.73 sqM) Est GFR (CKD-EPI)NonAf (>60 ml/min/1.73 sqM) Glucose (74-99) mg/dL Plasma Lactic Acid Rehan (0.7-2.0) mmol/L Calcium (8.4-10.2) mg/dL Total Bilirubin (0.2-1.3) mg/dL AST (14-36) U/L ALT (4-34) U/L Alkaline Phosphatase (38-126) U/L Total Protein (6.3-8.2) g/dL Albumin (3.5-5.0) g/dL Amylase (30-110) U/L Lipase (23-300) U/L Urine Color Yellow Urine Appearance Cloudy H (Clear) Urine pH 6.0 (5.0-8.0) Ur Specific [place] 1.033 (1.001-1.035) Urine Protein Trace H (Negative) Urine Glucose (UA) Negative (Negative) Urine Ketones Negative (Negative) Urine Blood Negative (Negative) Urine Nitrite Negative (Negative) Urine Bilirubin Negative (Negative) Urine Urobilinogen <2.0 (<2.0) mg/dL Ur Leukocyte Esterase Small H (Negative) Urine WBC 3 (0-5) /hpf Ur Squamous Epith Cells 3 (0-4) /hpf Amorphous Sediment Occasional H (None) /hpf Urine Bacteria Rare H (None) /hpf Hyaline Casts 1 (0-2) /lpf Urine Mucus Rare H (None) /hpf Urine HCG, Qual Not Detected (Not Detectd) 11/14/19 11/14/19 Range/Units 22:22 22:22 WBC (3.8-10.6) k/uL RBC (3.80-5.40) m/uL Hgb (11.4-16.0) gm/dL Hct (34.0-46.0) % MCV (80.0-100.0) fL MCH (25.0-35.0) pg MCHC (31.0-37.0) g/dL RDW (11.5-15.5) % Plt Count (150-450) k/uL Neutrophils % % Lymphocytes % % Monocytes % % Eosinophils % % Basophils % % Neutrophils # (1.3-7.7) k/uL Lymphocytes # (1.0-4.8) k/uL Monocytes # (0-1.0) k/uL Eosinophils # (0-0.7) k/uL Basophils # (0-0.2) k/uL Sodium 136 L (137-145) mmol/L Potassium 3.7 (3.5-5.1) mmol/L Chloride 107 (98-107) mmol/L Carbon Dioxide 23 (22-30) mmol/L Anion Gap 6 mmol/L BUN 10 (7-17) mg/dL Creatinine 0.60 (0.52-1.04) mg/dL Est GFR (CKD-EPI)AfAm >90 (>60 ml/min/1.73 sqM) Est GFR (CKD-EPI)NonAf >90 (>60 ml/min/1.73 sqM) Glucose 84 (74-99) mg/dL Plasma Lactic Acid Rehan 0.9 (0.7-2.0) mmol/L Calcium 8.5 (8.4-10.2) mg/dL Total Bilirubin 0.1 L (0.2-1.3) mg/dL AST 22 (14-36) U/L ALT 21 (4-34) U/L Alkaline Phosphatase 59 (38-126) U/L Total Protein 6.6 (6.3-8.2) g/dL Albumin 3.8 (3.5-5.0) g/dL Amylase 49 (30-110) U/L Lipase 56 (23-300) U/L Urine Color Urine Appearance (Clear) Urine pH (5.0-8.0) Ur Specific [place] (1.001-1.035) Urine Protein (Negative) Urine Glucose (UA) (Negative) Urine Ketones (Negative) Urine Blood (Negative) Urine Nitrite (Negative) Urine Bilirubin (Negative) Urine Urobilinogen (<2.0) mg/dL Ur Leukocyte Esterase (Negative) Urine WBC (0-5) /hpf Ur Squamous Epith Cells (0-4) /hpf Amorphous Sediment (None) /hpf Urine Bacteria (None) /hpf Hyaline Casts (0-2) /lpf Urine Mucus (None) /hpf Urine HCG, Qual (Not Detectd) Disposition Clinical Impression: Abdominal pain, Nausea and vomiting Disposition: HOME SELF-CARE Condition: Good Instructions (If sedation given, give patient instructions): Abdominal Pain (ED) Additional Instructions: Please take steroid as directed. Increase MiraLAX as well. Follow-up with your GI doctors in one to 2 days. If you have any worsening symptoms return to the emergency department. Prescriptions: predniSONE 50 mg PO DAILY #5 tablet Is patient prescribed a controlled substance at d/c from ED?: No Referrals: Donavan Guzman DO [Primary Care Provider] - 1-2 days Time of Disposition: 23:31
[2019-11-14 22:47] LABS: Basophils % (A) 1 %; Eosinophils # (A) 0.1 k/uL (0-0.7); Eosinophils % (A) 2 %; HCT 35.5 % (34.0-46.0); HGB 11.8 gm/dL (11.4-16.0); Lymphocytes # (A) 2.3 k/uL (1.0-4.8); Lymphocytes % (A) 41 %; MCH 30.1 pg (25.0-35.0); MCHC 33.1 g/dL (31.0-37.0); MCV 90.9 fL (80.0-100.0); Mean Platelet Volume 7.2; Monocytes # (A) 0.4 k/uL (0-1.0); Monocytes % (A) 7 %; Neutrophils # (A) 2.6 k/uL (1.3-7.7); Neutrophils % (A) 47 %; Platelet Count 259 k/uL (150-450); WBC 5.6 k/uL (3.8-10.6)
[2019-11-14 22:59] LABS: ALT 21 U/L (4-34); AST 22 U/L (14-36); African American GFR (CKD) >90 (>60 ml/min/1.73 sqM); Albumin 3.8 g/dL (3.5-5.0); Alkaline Phosphatase 59 U/L (38-126); Amylase 49 U/L (30-110); Anion Gap 6 mmol/L; Blood Urea Nitrogen 10 mg/dL (7-17); Calcium 8.5 mg/dL (8.4-10.2); Carbon Dioxide 23 mmol/L (22-30); Chloride 107 mmol/L (98-107); Glucose 84 mg/dL (74-99); Non-African American GFR(CKD) >90 (>60 ml/min/1.73 sqM); Potassium 3.7 mmol/L (3.5-5.1); Sodium 136 mmol/L (137-145); Total Bilirubin 0.1 mg/dL (0.2-1.3); Total Protein 6.6 g/dL (6.3-8.2)
--- NOTE | 2019-11-14 23:08 | XR ---
EXAMINATION TYPE: XR KUB DATE OF EXAM: 11/14/2019 COMPARISON: 10/07/2019 HISTORY: Abdominal pain TECHNIQUE: 2 views upright FINDINGS: Bowel gas pattern is normal. There is no sign of intestinal obstruction or pneumoperitoneum . Fecal pattern is normal. Lung bases are clear. There are no pathologic calcifications. IMPRESSION: Nonacute abdomen. No change.
[2019-11-14 23:58] VITALS: BP 133/82; PULSE 97; TEMP 98.8
== END 2019-11-14 23:57 | disposition home or self-care (01) ==
LOC: EC 21:25
DX: K59.00 Constipation, unspecified (principal); R11.2 Nausea with vomiting, unspecified; R00.0 Tachycardia, unspecified; K58.9 Irritable bowel syndrome, unspecified; F41.9 Anxiety disorder, unspecified; F32.9 Major depressive disorder, single episode, unspecified; Z79.899 Other long term (current) drug therapy; Z79.3 Long term (current) use of hormonal contraceptives; Z88.8 Allergy status to other drugs, medicaments and biological substances; Z88.0 Allergy status to penicillin; Z88.1 Allergy status to other antibiotic agents; Z87.19 Personal history of other diseases of the digestive system; Z90.49 Acquired absence of other specified parts of digestive tract; Z86.14 Personal history of Methicillin resistant Staphylococcus aureus infection
CPT/HCPCS: 36415; 80053; 82150; 83605; 83690; 85025; 81001; 81025; 74018; 99284; 96374; 96375 ×2; 96376; 96361; J2930; J2405; J1170

== ENCOUNTER 2019-11-26 18:45 | Emergency (ER) | payer MEDICARE, OTHER ==
[2019-11-26] MEDS ORDERED: SODIUM CHLORIDE 0.9% 1,000 ML IV STA (19:10)
[2019-11-26] MEDS ORDERED: MORPHINE SULFATE 4 MG/ML SYRINGE IV STA (19:10)
[2019-11-26] MEDS ORDERED: PANTOPRAZOLE 40 MG/10 ML VIAL IVP STA (19:13)
[2019-11-26] MEDS ORDERED: diphenhydrAMINE 50 MG/ML 1 ML VIAL IVP STA (19:13)
--- NOTE | 2019-11-26 19:14 | ED ---
Abdominal Pain HPI - General Chief Complaint: Abdominal Pain Stated Complaint: Crohn's flare Time Seen by Provider: 11/26/19 18:55 Source: patient, old records reviewed Mode of arrival: ambulatory Limitations: no limitations - History of Present Illness Initial Comments: This is a 24-year-old female DF for evaluation of severe chronic abdominal pain nausea vomiting unable to keep down medications pain is persistent. No travel show sick contacts no fevers no blood in the urine no blood in stool no blood in the vomit. Abdominal pain is normal and chronic. She has been I be able take medications at home MD Complaint: abdominal pain, other (Symptoms similar to prior Crohn's exacerbations) -: week(s) Location: diffuse, epigastric, suprapubic Radiation: epigastric Migration to: no migration Severity: moderate Severity scale (1-10): 7 Consistency: constant Improves With: nothing Worsens With: nothing Associated Symptoms: nausea - Related Data Home Medications Medication Instructions Recorded Confirmed Ustekinumab [Stelara] 45 mg SQ Q56D 01/04/18 04/15/19 Medroxyprogesterone Acetate 150 mg IM Q90D 03/10/18 04/15/19 [Depo-Provera] Amitriptyline HCl 20 mg PO HS 04/11/18 04/15/19 Benztropine Mesylate [Cogentin] 1.5 mg PO BID 12/01/18 04/15/19 Melatonin 10 mg PO HS PRN 12/01/18 04/15/19 hydrOXYzine PAMOATE [Vistaril] 100 mg PO TID 12/01/18 04/15/19 Lurasidone [Latuda] 80 mg PO HS 03/07/19 04/15/19 Vitamin C/Biotin [Hair, Skin and 1 tab PO DAILY 04/15/19 04/15/19 Nails] oxyCODONE HCL/ACETAMINOPHEN 1 tab PO Q4HR PRN 04/15/19 04/15/19 [Percocet 10-325 mg] Previous Rx's Medication Instructions Recorded Ondansetron Odt [Zofran Odt] 4 mg PO Q8HR PRN #12 tab 03/07/19 Diazepam [Valium] 10 mg PO Q6H PRN 3 Days #12 tab 04/15/19 Cephalexin [Keflex] 500 mg PO Q6H #28 cap 05/29/19 Diazepam [Valium] 5 mg PO TID PRN 3 Days #9 tab 05/29/19 Ondansetron Odt [Zofran Odt] 4 mg PO Q8HR PRN #15 tab 10/04/19 Cephalexin [Keflex] 500 mg PO BID 5 Days #9 cap 10/17/19 predniSONE 50 mg PO DAILY #5 tablet 11/14/19 Allergies Allergy/AdvReac Type Severity Reaction Status Date / Time adalimumab [From Humira] Allergy RASH/NAUSEA/VOMITING/JOINT Verified 11/26/19 18:54 PAIN amoxicillin trihydrate Allergy Rash/Hives Verified 11/26/19 18:54 [From Augmentin] potassium clavulanate Allergy Rash/Hives Verified 11/26/19 18:54 [From Augmentin] Review of Systems ROS Statement: Those systems with pertinent positive or pertinent negative responses have been documented in the HPI. ROS Other: All systems not noted in ROS Statement are negative. Past Medical History Past Medical History: No Reported History Additional Past Medical History / Comment(s): crohns, IBD, colitis dx of crohns at age 10. History of Any Multi-Drug Resistant Organisms: MRSA Date of last positivie culture/infection: 2002, Jul 2019 cdiff MDRO Source:: Hip Past Surgical History: Bowel Resection, Cholecystectomy Additional Past Surgical History / Comment(s): wisdom teeth, bowel resection x 2 in 2017, sepsis after first surgery Past Psychological History: Anxiety, Depression Smoking Status: Never smoker Past Alcohol Use History: None Reported Past Drug Use History: None Reported - Past Family History Mother Family Medical History: Cancer General Exam Limitations: no limitations General appearance: alert, in no apparent distress Head exam: Present: atraumatic, normocephalic, normal inspection Eye exam: Present: normal appearance, PERRL, EOMI. Absent: scleral icterus, conjunctival injection, periorbital swelling ENT exam: Present: normal exam, mucous membranes moist Neck exam: Present: normal inspection. Absent: tenderness, meningismus, lymphadenopathy Respiratory exam: Present: normal lung sounds bilaterally. Absent: respiratory distress, wheezes, rales, rhonchi, stridor Cardiovascular Exam: Present: normal rhythm, tachycardia, normal heart sounds. Absent: systolic murmur, diastolic murmur, rubs, gallop, clicks GI/Abdominal exam: Present: soft, normal bowel sounds. Absent: distended, tenderness, guarding, rebound, rigid Extremities exam: Present: normal inspection, full ROM, normal capillary refill. Absent: tenderness, pedal edema, joint swelling, calf tenderness Back exam: Present: normal inspection Neurological exam: Present: alert, oriented X3, CN II-XII intact Psychiatric exam: Present: normal affect, normal mood Skin exam: Present: warm, dry, intact, normal color. Absent: rash Course Vital Signs 11/26/19 11/26/19 18:50 20:08 Temperature 99.0 F 98.3 F Pulse Rate 107 H 88 Respiratory 20 18 Rate Blood Pressure 130/94 118/87 O2 Sat by Pulse 97 98 Oximetry - Reevaluation(s) Reevaluation #1: 11/26/19 20:09 Medical record is reviewed Medical Decision Making - Lab Data Result diagrams: 11/26/19 21:13 11/26/19 21:13 Lab Results 11/26/19 11/26/19 11/26/19 Range/Units 21:13 21:13 21:13 WBC 9.4 (3.8-10.6) k/uL RBC 4.97 (3.80-5.40) m/uL Hgb 14.9 D (11.4-16.0) gm/dL Hct 43.8 (34.0-46.0) % MCV 88.1 (80.0-100.0) fL MCH 29.9 (25.0-35.0) pg MCHC 33.9 (31.0-37.0) g/dL RDW 11.9 (11.5-15.5) % Plt Count 293 (150-450) k/uL Neutrophils % 65 % Lymphocytes % 28 % Monocytes % 4 % Eosinophils % 2 % Basophils % 0 % Neutrophils # 6.1 (1.3-7.7) k/uL Lymphocytes # 2.6 (1.0-4.8) k/uL Monocytes # 0.4 (0-1.0) k/uL Eosinophils # 0.1 (0-0.7) k/uL Basophils # 0.0 (0-0.2) k/uL Sodium (137-145) mmol/L Potassium (3.5-5.1) mmol/L Chloride (98-107) mmol/L Carbon Dioxide (22-30) mmol/L Anion Gap mmol/L BUN (7-17) mg/dL Creatinine (0.52-1.04) mg/dL Est GFR (CKD-EPI)AfAm (>60 ml/min/1.73 sqM) Est GFR (CKD-EPI)NonAf (>60 ml/min/1.73 sqM) Glucose (74-99) mg/dL Calcium (8.4-10.2) mg/dL Total Bilirubin (0.2-1.3) mg/dL AST (14-36) U/L ALT (4-34) U/L Alkaline Phosphatase (38-126) U/L Total Protein (6.3-8.2) g/dL Albumin (3.5-5.0) g/dL Amylase (30-110) U/L Lipase (23-300) U/L Urine Color Yellow Urine Appearance Clear (Clear) Urine pH 5.5 (5.0-8.0) Ur Specific [place] 1.026 (1.001-1.035) Urine Protein Trace H (Negative) Urine Glucose (UA) Negative (Negative) Urine Ketones Negative (Negative) Urine Blood Negative (Negative) Urine Nitrite Negative (Negative) Urine Bilirubin Negative (Negative) Urine Urobilinogen <2.0 (<2.0) mg/dL Ur Leukocyte Esterase Large H (Negative) Urine RBC 1 (0-5) /hpf Urine WBC 4 (0-5) /hpf Ur Squamous Epith Cells 2 (0-4) /hpf Urine Bacteria Rare H (None) /hpf Urine Mucus Many H (None) /hpf Urine HCG, Qual Not Detected (Not Detectd) 11/26/19 Range/Units 21:13 WBC (3.8-10.6) k/uL RBC (3.80-5.40) m/uL Hgb (11.4-16.0) gm/dL Hct (34.0-46.0) % MCV (80.0-100.0) fL MCH (25.0-35.0) pg MCHC (31.0-37.0) g/dL RDW (11.5-15.5) % Plt Count (150-450) k/uL Neutrophils % % Lymphocytes % % Monocytes % % Eosinophils % % Basophils % % Neutrophils # (1.3-7.7) k/uL Lymphocytes # (1.0-4.8) k/uL Monocytes # (0-1.0) k/uL Eosinophils # (0-0.7) k/uL Basophils # (0-0.2) k/uL Sodium 138 (137-145) mmol/L Potassium 3.8 (3.5-5.1) mmol/L Chloride 103 (98-107) mmol/L Carbon Dioxide 25 (22-30) mmol/L Anion Gap 10 mmol/L BUN 7 (7-17) mg/dL Creatinine 0.72 (0.52-1.04) mg/dL Est GFR (CKD-EPI)AfAm >90 (>60 ml/min/1.73 sqM) Est GFR (CKD-EPI)NonAf >90 (>60 ml/min/1.73 sqM) Glucose 87 (74-99) mg/dL Calcium 9.6 (8.4-10.2) mg/dL Total Bilirubin 0.2 (0.2-1.3) mg/dL AST 31 (14-36) U/L ALT 26 (4-34) U/L Alkaline Phosphatase 81 (38-126) U/L Total Protein 8.4 H (6.3-8.2) g/dL Albumin 5.0 (3.5-5.0) g/dL Amylase 65 (30-110) U/L Lipase 79 (23-300) U/L Urine Color Urine Appearance (Clear) Urine pH (5.0-8.0) Ur Specific [place] (1.001-1.035) Urine Protein (Negative) Urine Glucose (UA) (Negative) Urine Ketones (Negative) Urine Blood (Negative) Urine Nitrite (Negative) Urine Bilirubin (Negative) Urine Urobilinogen (<2.0) mg/dL Ur Leukocyte Esterase (Negative) Urine RBC (0-5) /hpf Urine WBC (0-5) /hpf Ur Squamous Epith Cells (0-4) /hpf Urine Bacteria (None) /hpf Urine Mucus (None) /hpf Urine HCG, Qual (Not Detectd) Disposition Clinical Impression: Nausea and vomiting, Intractable vomiting with nausea, Abdominal pain, Epigastric abdominal pain, Crohn's disease Disposition: HOME SELF-CARE Condition: Good Instructions (If sedation given, give patient instructions): Abdominal Pain (ED) Is patient prescribed a controlled substance at d/c from ED?: No Referrals: Donavan Guzman DO [Primary Care Provider] - 1-2 days
[2019-11-26] MEDS ORDERED: HYDROmorphone 1 MG/ML 1 ML SYRINGE IVP STA ×2 (20:11→22:13)
[2019-11-26 20:17] VITALS: TEMP 98.3
[2019-11-26 21:31] LABS: Basophils % (A) 0 %; Eosinophils # (A) 0.1 k/uL (0-0.7); Eosinophils % (A) 2 %; HCT 43.8 % (34.0-46.0); Lymphocytes # (A) 2.6 k/uL (1.0-4.8); Lymphocytes % (A) 28 %; MCH 29.9 pg (25.0-35.0); MCHC 33.9 g/dL (31.0-37.0); MCV 88.1 fL (80.0-100.0); Mean Platelet Volume 7.1; Monocytes # (A) 0.4 k/uL (0-1.0); Monocytes % (A) 4 %; Neutrophils # (A) 6.1 k/uL (1.3-7.7); Neutrophils % (A) 65 %; Platelet Count 293 k/uL (150-450); RBC 4.97 m/uL (3.80-5.40); RDW 11.9 % (11.5-15.5); WBC 9.4 k/uL (3.8-10.6)
[2019-11-26 21:35] LABS: HGB 14.9 gm/dL (11.4-16.0)
[2019-11-26 21:36] LABS: Appearance,Urine Clear (Clear); Bacteria,Urine Rare /hpf; Bilirubin,Urine Negative (Negative); Blood,Urine Negative (Negative); Color,Urine Yellow; Glucose,Urine (UA) Negative (Negative); Ketones,Urine Negative (Negative); Leukocyte Esterase,Urine Large (Negative); Mucus,Urine Many /hpf; Nitrite,Urine Negative (Negative); PH, Urine 5.5 (5.0-8.0); Protein,Urine Trace (Negative); RBC,Urine 1 /hpf (0-5); Specific Gravity,Urine 1.026 (1.001-1.035); Squamous Epithelial Cell,Urine 2 /hpf (0-4); Urobilinogen,Urine <2.0 mg/dL (<2.0); WBC,Urine 4 /hpf (0-5)
[2019-11-26 21:43] LABS: ALT 26 U/L (4-34); AST 31 U/L (14-36); African American GFR (CKD) >90 (>60 ml/min/1.73 sqM); Alkaline Phosphatase 81 U/L (38-126); Amylase 65 U/L (30-110); Anion Gap 10 mmol/L; Blood Urea Nitrogen 7 mg/dL (7-17); Calcium 9.6 mg/dL (8.4-10.2); Carbon Dioxide 25 mmol/L (22-30); Chloride 103 mmol/L (98-107); Glucose 87 mg/dL (74-99); Non-African American GFR(CKD) >90 (>60 ml/min/1.73 sqM); Potassium 3.8 mmol/L (3.5-5.1); Sodium 138 mmol/L (137-145); Total Bilirubin 0.2 mg/dL (0.2-1.3); Total Protein 8.4 g/dL (6.3-8.2)
[2019-11-26 23:01] VITALS: BP 123/60; PULSE 64; RESP 16
== END 2019-11-26 23:14 | disposition home or self-care (01) ==
LOC: EC 18:45
DX: K50.90 Crohn's disease, unspecified, without complications (principal); R00.0 Tachycardia, unspecified; F32.9 Major depressive disorder, single episode, unspecified; F41.9 Anxiety disorder, unspecified; Z88.0 Allergy status to penicillin; Z88.8 Allergy status to other drugs, medicaments and biological substances; Z79.3 Long term (current) use of hormonal contraceptives; Z79.899 Other long term (current) drug therapy; Z86.14 Personal history of Methicillin resistant Staphylococcus aureus infection; Z90.49 Acquired absence of other specified parts of digestive tract
CPT/HCPCS: 36415; 80053; 82150; 83690; 85025; 81001; 81025; 99284; 96374; 96375 ×3; 96376; 96361 ×2; J2270; J1200; J1170; C9113

== ENCOUNTER 2019-12-06 18:46 | Emergency (ER) | payer MEDICARE, OTHER ==
[2019-12-06 18:55] VITALS: RESP 18
[2019-12-06] MEDS ORDERED: SODIUM CHLORIDE 0.9% 1,000 ML IV STA (19:21)
[2019-12-06] MEDS ORDERED: HYDROmorphone 1 MG/ML 1 ML SYRINGE IVP STA (19:21)
--- NOTE | 2019-12-06 19:59 | XR ---
EXAMINATION TYPE: XR KUB DATE OF EXAM: 12/06/2019 COMPARISON: 11/14/2019 HISTORY: Abdominal pain and vomiting TECHNIQUE: One view abdominal series FINDINGS: The osseous structures are intact. The bowel gas pattern is nonspecific. Occasional air-fluid levels are seen. Lung bases are clear. IMPRESSION: 1. Nonspecific abdomen. Occasional air-fluid levels can be seen with an ileus or enteritis correlate clinically.
[2019-12-06 20:25] LABS: Basophils % (A) 0 %; Eosinophils # (A) 0.2 k/uL (0-0.7); Eosinophils % (A) 4 %; HGB 13.2 gm/dL (11.4-16.0); Lymphocytes # (A) 2.2 k/uL (1.0-4.8); Lymphocytes % (A) 43 %; MCH 30.1 pg (25.0-35.0); MCHC 33.8 g/dL (31.0-37.0); MCV 88.9 fL (80.0-100.0); Mean Platelet Volume 7.1; Monocytes # (A) 0.3 k/uL (0-1.0); Monocytes % (A) 5 %; Neutrophils # (A) 2.3 k/uL (1.3-7.7); Neutrophils % (A) 45 %; Platelet Count 229 k/uL (150-450); RBC 4.38 m/uL (3.80-5.40); RDW 12.1 % (11.5-15.5); WBC 5.2 k/uL (3.8-10.6)
[2019-12-06 20:27] LABS: Appearance,Urine Clear (Clear); Bilirubin,Urine Negative (Negative); Blood,Urine Negative (Negative); Color,Urine Yellow; Glucose,Urine (UA) Negative (Negative); Ketones,Urine Negative (Negative); Leukocyte Esterase,Urine Small (Negative); Mucus,Urine Few /hpf; Nitrite,Urine Negative (Negative); PH, Urine 6.5 (5.0-8.0); Protein,Urine Negative (Negative); RBC,Urine <1 /hpf (0-5); Squamous Epithelial Cell,Urine <1 /hpf (0-4); Urobilinogen,Urine <2.0 mg/dL (<2.0); WBC,Urine 3 /hpf (0-5)
[2019-12-06 20:36] LABS: ALT 18 U/L (4-34); AST 25 U/L (14-36); African American GFR (CKD) >90 (>60 ml/min/1.73 sqM); Albumin 4.5 g/dL (3.5-5.0); Alkaline Phosphatase 72 U/L (38-126); Anion Gap 9 mmol/L; Blood Urea Nitrogen 8 mg/dL (7-17); Carbon Dioxide 22 mmol/L (22-30); Chloride 105 mmol/L (98-107); Glucose 85 mg/dL (74-99); Non-African American GFR(CKD) >90 (>60 ml/min/1.73 sqM); Potassium 3.9 mmol/L (3.5-5.1); Sodium 136 mmol/L (137-145); Total Bilirubin 0.2 mg/dL (0.2-1.3); Total Protein 7.5 g/dL (6.3-8.2)
[2019-12-06] MEDS ORDERED: HYDROmorphone 0.5 MG/0.5 ML SYRINGE IVP STA (21:15)
[2019-12-06] MEDS ORDERED: ONDANSETRON 4 MG/2 ML VIAL IVP STA (21:15)
[2019-12-06 21:29] VITALS: BP 112/69; PULSE 90; TEMP 98
--- NOTE | 2019-12-06 21:48 | ED ---
General Adult HPI - General Chief complaint: Abdominal Pain Stated complaint: Crohns symptoms Time Seen by Provider: 12/06/19 18:56 Source: patient, family, RN notes reviewed, old records reviewed Mode of arrival: ambulatory Limitations: no limitations - History of Present Illness Initial comments: 24-year-old female patient past history significant for Crohn's disease chronic abdominal pain presents to emergency department with chief complaint left lower quadrant abdominal pain. Patient reports that he does have chronic abdominal pain associated similar to that. Patient does report however that she has not had a bowel movement in approximately 5 days and did pass some blood while attempting no bowel movement. Denies any chance of being . Reports nausea and some mild emesis that is normal for the morning. Denies any other complaints. Systemic: Pt denies fatigue, fever/chills, rash. Pt denies weakness, night sweats, weight loss. Neuro: Pt denies headache, visual disturbances, syncope or pre-syncope. HEENT: Pt denies ocular discharge or irritation, otalgia, rhinorrhea, pharyngitis or notable lymphadenopathy. Cardiopulmonary: Pt denies chest pain, SOB, heart palpitations, dyspnea on exertion. : Pt denies dysuria, burning w/ urination, frequency/urgency. Denies new onset urinary or bowel incontinence. MSK: Pt denies myalgia, loss of strength or function in extremities. Neuro: Pt denies new onset weakness, paresthesias. - Related Data Home Medications Medication Instructions Recorded Confirmed Medroxyprogesterone Acetate 150 mg IM Q90D 03/10/18 12/06/19 [Depo-Provera] Amitriptyline HCl 20 mg PO HS 04/11/18 12/06/19 Lurasidone [Latuda] 80 mg PO HS 03/07/19 12/06/19 oxyCODONE HCL/ACETAMINOPHEN 1 tab PO QID 04/15/19 12/06/19 [Percocet 10-325 mg] Allergies Allergy/AdvReac Type Severity Reaction Status Date / Time adalimumab [From Humira] Allergy RASH/NAUSEA/VOMITING/JOINT Verified 11/26/19 18:54 PAIN amoxicillin trihydrate Allergy Rash/Hives Verified 11/26/19 18:54 [From Augmentin] potassium clavulanate Allergy Rash/Hives Verified 11/26/19 18:54 [From Augmentin] Review of Systems ROS Statement: Those systems with pertinent positive or pertinent negative responses have been documented in the HPI. ROS Other: All systems not noted in ROS Statement are negative. Past Medical History Past Medical History: No Reported History Additional Past Medical History / Comment(s): crohns, IBD, colitis dx of crohns at age 10. History of Any Multi-Drug Resistant Organisms: MRSA Date of last positivie culture/infection: 2002, Jul 2019 cdiff MDRO Source:: Hip Past Surgical History: Bowel Resection, Cholecystectomy Additional Past Surgical History / Comment(s): wisdom teeth, bowel resection x 2 in 2017, sepsis after first surgery Past Psychological History: Anxiety, Depression Smoking Status: Never smoker Past Alcohol Use History: None Reported Past Drug Use History: None Reported - Past Family History Mother Family Medical History: Cancer General Exam - General Exam Comments Initial Comments: Constitutional: NAD, AOX3, Pt has pleasant affect. HEENT: NC/AT, trachea midline, neck supple, no lymphadenopathy. Posterior pharynx non erythematous, without exudates. External ears appear normal, without discharge. Mucous membranes moist. Eyes PERRLA, EOM intact. There is no scleral icterus. No pallor noted. Cardiopulmonary: RRR, no murmurs, rubs or gallops, no JVD noted. Lungs CTAB in anterior and posterior aquino. No peripheral edema. Abdominal exam: Abdomen soft and non-distended. Abdomen mildly tender to palpation left lower quadrant region.. Bowel sounds active in LLQ. No hepatosple nomegaly. No ecchymosis Neuro: CN II-XII grossly intact. No nuchal rigidity. No raccon eyes, no byers sign, no hemotympanum. No cervical spinal tenderness. MSK: No posterior calf tenderness bilaterally, homans sign negative bilaterally. Posterior tibialis and radial pulse +2 bilaterally. Sensation intact in upper and lower extremities. Full active ROM in upper and lower extremities, 5/5 stregnth. Limitations: no limitations Course Vital Signs 12/06/19 12/06/19 18:49 21:29 Temperature 98.9 F 98 F Pulse Rate 112 H 90 Respiratory 18 18 Rate Blood Pressure 121/80 112/69 O2 Sat by Pulse 99 98 Oximetry Medical Decision Making - Medical Decision Making 24-year-old female patient past history significant for Crohn's disease chronic abdominal pain presents to emergency department with chief complaint left lower quadrant abdominal pain. Patient reports that he does have chronic abdominal pain associated similar to that. Patient does report however that she has not had a bowel movement in approximately 5 days and did pass some blood while attempting no bowel movement. Denies any chance of being . Reports dc sea and some mild emesis that is normal for the morning. Denies any other complaints. Patient felt signs are stable, afebrile. Physical exam displayed mild tenderness to left lower quadrant region. Laboratory investigations were obtained, noncompressive. KUB was obtained this displayed nonsurgical abdomen, occasional air-fluid levels can be seen with ileus or enteritis. Patient reports that she is feeling much improved. Shared decision making with patient, patient declined a rectal exam, declined advanced imaging, requests discharge at that she will return tomorrow if symptoms worsen. Patient recommended to follow up with her GI specialist as well as her primary care provider. Case discussed with Dr. Moran. - Lab Data Result diagrams: 12/06/19 20:05 12/06/19 20:05 Lab Results 12/06/19 12/06/19 12/06/19 Range/Units 20:05 20:05 20:05 WBC 5.2 (3.8-10.6) k/uL RBC 4.38 (3.80-5.40) m/uL Hgb 13.2 (11.4-16.0) gm/dL Hct 39.0 (34.0-46.0) % MCV 88.9 (80.0-100.0) fL MCH 30.1 (25.0-35.0) pg MCHC 33.8 (31.0-37.0) g/dL RDW 12.1 (11.5-15.5) % Plt Count 229 (150-450) k/uL Neutrophils % 45 % Lymphocytes % 43 % Monocytes % 5 % Eosinophils % 4 % Basophils % 0 % Neutrophils # 2.3 (1.3-7.7) k/uL Lymphocytes # 2.2 (1.0-4.8) k/uL Monocytes # 0.3 (0-1.0) k/uL Eosinophils # 0.2 (0-0.7) k/uL Basophils # 0.0 (0-0.2) k/uL Sodium 136 L (137-145) mmol/L Potassium 3.9 (3.5-5.1) mmol/L Chloride 105 (98-107) mmol/L Carbon Dioxide 22 (22-30) mmol/L Anion Gap 9 mmol/L BUN 8 (7-17) mg/dL Creatinine 0.69 (0.52-1.04) mg/dL Est GFR (CKD-EPI)AfAm >90 (>60 ml/min/1.73 sqM) Est GFR (CKD-EPI)NonAf >90 (>60 ml/min/1.73 sqM) Glucose 85 (74-99) mg/dL Plasma Lactic Acid Rehan 0.9 (0.7-2.0) mmol/L Calcium 9.0 (8.4-10.2) mg/dL Total Bilirubin 0.2 (0.2-1.3) mg/dL AST 25 (14-36) U/L ALT 18 (4-34) U/L Alkaline Phosphatase 72 (38-126) U/L Total Protein 7.5 (6.3-8.2) g/dL Albumin 4.5 (3.5-5.0) g/dL Lipase 145 (23-300) U/L Urine Color Urine Appearance (Clear) Urine pH (5.0-8.0) Ur Specific [place] (1.001-1.035) Urine Protein (Negative) Urine Glucose (UA) (Negative) Urine Ketones (Negative) Urine Blood (Negative) Urine Nitrite (Negative) Urine Bilirubin (Negative) Urine Urobilinogen (<2.0) mg/dL Ur Leukocyte Esterase (Negative) Urine RBC (0-5) /hpf Urine WBC (0-5) /hpf Ur Squamous Epith Cells (0-4) /hpf Urine Mucus (None) /hpf Urine HCG, Qual (Not Detectd) 12/06/19 12/06/19 Range/Units 20:05 20:05 WBC (3.8-10.6) k/uL RBC (3.80-5.40) m/uL Hgb (11.4-16.0) gm/dL Hct (34.0-46.0) % MCV (80.0-100.0) fL MCH (25.0-35.0) pg MCHC (31.0-37.0) g/dL RDW (11.5-15.5) % Plt Count (150-450) k/uL Neutrophils % % Lymphocytes % % Monocytes % % Eosinophils % % Basophils % % Neutrophils # (1.3-7.7) k/uL Lymphocytes # (1.0-4.8) k/uL Monocytes # (0-1.0) k/uL Eosinophils # (0-0.7) k/uL Basophils # (0-0.2) k/uL Sodium (137-145) mmol/L Potassium (3.5-5.1) mmol/L Chloride (98-107) mmol/L Carbon Dioxide (22-30) mmol/L Anion Gap mmol/L BUN (7-17) mg/dL Creatinine (0.52-1.04) mg/dL Est GFR (CKD-EPI)AfAm (>60 ml/min/1.73 sqM) Est GFR (CKD-EPI)NonAf (>60 ml/min/1.73 sqM) Glucose (74-99) mg/dL Plasma Lactic Acid Rehan (0.7-2.0) mmol/L Calcium (8.4-10.2) mg/dL Total Bilirubin (0.2-1.3) mg/dL AST (14-36) U/L ALT (4-34) U/L Alkaline Phosphatase (38-126) U/L Total Protein (6.3-8.2) g/dL Albumin (3.5-5.0) g/dL Lipase (23-300) U/L Urine Color Yellow Urine Appearance Clear (Clear) Urine pH 6.5 (5.0-8.0) Ur Specific [place] 1.020 (1.001-1.035) Urine Protein Negative (Negative) Urine Glucose (UA) Negative (Negative) Urine Ketones Negative (Negative) Urine Blood Negative (Negative) Urine Nitrite Negative (Negative) Urine Bilirubin Negative (Negative) Urine Urobilinogen <2.0 (<2.0) mg/dL Ur Leukocyte Esterase Small H (Negative) Urine RBC <1 (0-5) /hpf Urine WBC 3 (0-5) /hpf Ur Squamous Epith Cells <1 (0-4) /hpf Urine Mucus Few H (None) /hpf Urine HCG, Qual Not Detected (Not Detectd) Disposition Clinical Impression: Chronic abdominal pain Disposition: ADMITTED IP TO THIS [facility] Condition: Stable Instructions (If sedation given, give patient instructions): Abdominal Pain (ED) Additional Instructions: Follow-up with primary care provider tomorrow. Follow-up with GI consult tomorrow. Return to ER if condition worsens in any way. Is patient prescribed a controlled substance at d/c from ED?: No Referrals: Donavan Guzman DO [Primary Care Provider] - 1-2 days
== END 2019-12-06 22:24 | disposition other institution (70) ==
LOC: EC 18:46
DX: G89.29 Other chronic pain (principal); R10.32 Left lower quadrant pain; R11.2 Nausea with vomiting, unspecified; F41.9 Anxiety disorder, unspecified; F32.9 Major depressive disorder, single episode, unspecified; Z86.14 Personal history of Methicillin resistant Staphylococcus aureus infection; Z98.890 Other specified postprocedural states; Z90.49 Acquired absence of other specified parts of digestive tract; Z87.19 Personal history of other diseases of the digestive system; Z53.29 Procedure and treatment not carried out because of patient's decision for other reasons; Z79.3 Long term (current) use of hormonal contraceptives; Z79.891 Long term (current) use of opiate analgesic; Z79.899 Other long term (current) drug therapy; Z88.8 Allergy status to other drugs, medicaments and biological substances; Z88.0 Allergy status to penicillin
CPT/HCPCS: 36415; 80053; 83605; 83690; 85025; 81001; 81025; 74018; 99284; 96374; 96375; 96376; 96361 ×2; J2405; J1170 ×2

== ENCOUNTER 2019-12-08 20:19 | Emergency (ER) | payer MEDICARE, OTHER ==
[2019-12-08 20:28] VITALS: TEMP 99.1
--- NOTE | 2019-12-08 20:44 | ED ---
General Adult HPI - General Chief complaint: Abdominal Pain Stated complaint: Revisit Vomiting Time Seen by Provider: 12/08/19 20:35 Source: patient, RN notes reviewed Mode of arrival: ambulatory Limitations: no limitations - History of Present Illness Initial comments: 24-year-old female well-known to this emergency department for abdominal pain presents again for abdominal pain. Patient states that she felt better after her last ER visit but then started to have abdominal pain again. Patient states that she was seen by her GI doctor via teleconference and told to go to [place] if she was having pain because that's where he is located. However patient decided to come here instead. Patient is not having any significant diarrhea with blood or mucus. She is having vomiting with 8 episodes today. She has not had any fevers that she is aware of. Patient has had 2 CT scans in the past 3 months.Patient has no other complaints at this time including shortness of breath, chest pain, headache, or visual changes. - Related Data Home Medications Medication Instructions Recorded Confirmed Medroxyprogesterone Acetate 150 mg IM Q90D 03/10/18 12/06/19 [Depo-Provera] Amitriptyline HCl 10 mg PO BID 04/11/18 12/06/19 Lurasidone [Latuda] 80 mg PO HS 03/07/19 12/06/19 oxyCODONE HCL/ACETAMINOPHEN 1 tab PO QID 04/15/19 12/06/19 [Percocet 10-325 mg] Amphetamine [Adzenys Xr-Odt] 3.1 mg PO DAILY 12/06/19 12/06/19 Benztropine Mesylate [Cogentin] 2 mg PO BID 12/06/19 12/06/19 Dicyclomine HCl 10 mg PO TID PRN 12/06/19 12/06/19 FLUoxetine HCL 40 mg PO DAILY 12/06/19 12/06/19 Methocarbamol [Robaxin] 500 mg PO DAILY 12/06/19 12/06/19 Ustekinumab [Stelara] 90 mg IM Q56D 12/06/19 12/06/19 predniSONE [Deltasone] 20 mg PO DAILY 12/06/19 12/06/19 Allergies Allergy/AdvReac Type Severity Reaction Status Date / Time adalimumab [From Humira] Allergy RASH/NAUSEA/VOMITING/JOINT Verified 12/08/19 20:28 PAIN amoxicillin trihydrate Allergy Rash/Hives Verified 12/08/19 20:28 [From Augmentin] potassium clavulanate Allergy Rash/Hives Verified 12/08/19 20:28 [From Augmentin] Review of Systems ROS Statement: Those systems with pertinent positive or pertinent negative responses have been documented in the HPI. ROS Other: All systems not noted in ROS Statement are negative. Past Medical History Past Medical History: No Reported History Additional Past Medical History / Comment(s): crohns, IBD, colitis dx of crohns at age 10. History of Any Multi-Drug Resistant Organisms: C-DIFF, MRSA Date of last positivie culture/infection: 2002, Jul 2019 cdiff MDRO Source:: Hip Past Surgical History: Bowel Resection, Cholecystectomy Additional Past Surgical History / Comment(s): wisdom teeth, bowel resection x 2 in 2017, sepsis after first surgery Past Psychological History: Anxiety, Bipolar, Depression Smoking Status: Never smoker Past Alcohol Use History: None Reported Past Drug Use History: None Reported - Past Family History Mother Family Medical History: Cancer General Exam Limitations: no limitations General appearance: alert, in no apparent distress Head exam: Present: atraumatic, normocephalic, normal inspection Eye exam: Present: normal appearance, PERRL, EOMI. Absent: scleral icterus, conjunctival injection, periorbital swelling ENT exam: Present: normal exam, mucous membranes moist Neck exam: Present: normal inspection, full ROM. Absent: tenderness, meningismus, lymphadenopathy Respiratory exam: Present: normal lung sounds bilaterally. Absent: respiratory distress, wheezes, rales, rhonchi, stridor Cardiovascular Exam: Present: regular rate, normal rhythm, normal heart sounds. Absent: systolic murmur, diastolic murmur, rubs, gallop, clicks GI/Abdominal exam: Present: soft, tenderness (Generalized abdominal tenderness), normal bowel sounds. Absent: distended, guarding, rebound, rigid Neurological exam: Present: alert Course Vital Signs 12/08/19 20:24 Temperature 99.1 F Pulse Rate 108 H Respiratory 21 Rate Blood Pressure 131/90 O2 Sat by Pulse 100 Oximetry Medical Decision Making - Medical Decision Making CT from 2 months ago showed previous colon surgery. Terminal a, is increase in diameter slightly compared to the month before but the clinical significance was not clear. Diameter is 2.8 centimeters which is Normal. Vitals are stable. Patient is afebrile. She has generalized nonspecific abd ominal tenderness without guarding or rebound. X-ray KUB shows a nonacute abdomen. No change. Fecal pattern is normal. CBC is normal with a white blood cell count of 5.3. CMP is unremarkable. Urinalysis unremarkable. Patient was given pain medication and is feeling much better. Patient is agreeable to discharge. States that she will go to the hospital her doctor works out of if this happens again so she has continuity of care as he did recommend she went there. I did offer steroids but she states her doctor was very very upset when we gave her steroids a few months ago. She will be sure to follow up. - Lab Data Result diagrams: 12/08/19 21:45 12/08/19 21:45 Lab Results 12/08/19 12/08/19 12/08/19 Range/Units 21:30 21:30 21:45 WBC 5.3 (3.8-10.6) k/uL RBC 4.12 (3.80-5.40) m/uL Hgb 12.2 (11.4-16.0) gm/dL Hct 36.2 (34.0-46.0) % MCV 87.9 (80.0-100.0) fL MCH 29.6 (25.0-35.0) pg MCHC 33.7 (31.0-37.0) g/dL RDW 11.9 (11.5-15.5) % Plt Count 234 (150-450) k/uL Neutrophils % 51 % Lymphocytes % 38 % Monocytes % 6 % Eosinophils % 3 % Basophils % 0 % Neutrophils # 2.7 (1.3-7.7) k/uL Lymphocytes # 2.0 (1.0-4.8) k/uL Monocytes # 0.3 (0-1.0) k/uL Eosinophils # 0.2 (0-0.7) k/uL Basophils # 0.0 (0-0.2) k/uL Sodium (137-145) mmol/L Potassium (3.5-5.1) mmol/L Chloride (98-107) mmol/L Carbon Dioxide (22-30) mmol/L Anion Gap mmol/L BUN (7-17) mg/dL Creatinine (0.52-1.04) mg/dL Est GFR (CKD-EPI)AfAm (>60 ml/min/1.73 sqM) Est GFR (CKD-EPI)NonAf (>60 ml/min/1.73 sqM) Glucose (74-99) mg/dL Calcium (8.4-10.2) mg/dL Total Bilirubin (0.2-1.3) mg/dL AST (14-36) U/L ALT (4-34) U/L Alkaline Phosphatase (38-126) U/L Total Protein (6.3-8.2) g/dL Albumin (3.5-5.0) g/dL Amylase (30-110) U/L Lipase (23-300) U/L Urine Color Yellow Urine Appearance Clear (Clear) Urine pH 6.0 (5.0-8.0) Ur Specific [place] 1.030 (1.001-1.035) Urine Protein Trace H (Negative) Urine Glucose (UA) Negative (Negative) Urine Ketones Negative (Negative) Urine Blood Negative (Negative) Urine Nitrite Negative (Negative) Urine Bilirubin Negative (Negative) Urine Urobilinogen <2.0 (<2.0) mg/dL Ur Leukocyte Esterase Negative (Negative) Urine HCG, Qual Not Detected (Not Detectd) 12/08/19 Range/Units 21:45 WBC (3.8-10.6) k/uL RBC (3.80-5.40) m/uL Hgb (11.4-16.0) gm/dL Hct (34.0-46.0) % MCV (80.0-100.0) fL MCH (25.0-35.0) pg MCHC (31.0-37.0) g/dL RDW (11.5-15.5) % Plt Count (150-450) k/uL Neutrophils % % Lymphocytes % % Monocytes % % Eosinophils % % Basophils % % Neutrophils # (1.3-7.7) k/uL Lymphocytes # (1.0-4.8) k/uL Monocytes # (0-1.0) k/uL Eosinophils # (0-0.7) k/uL Basophils # (0-0.2) k/uL Sodium 137 (137-145) mmol/L Potassium 4.2 (3.5-5.1) mmol/L Chloride 107 (98-107) mmol/L Carbon Dioxide 21 L (22-30) mmol/L Anion Gap 9 mmol/L BUN 9 (7-17) mg/dL Creatinine 0.61 (0.52-1.04) mg/dL Est GFR (CKD-EPI)AfAm >90 (>60 ml/min/1.73 sqM) Est GFR (CKD-EPI)NonAf >90 (>60 ml/min/1.73 sqM) Glucose 83 (74-99) mg/dL Calcium 9.3 (8.4-10.2) mg/dL Total Bilirubin 0.3 (0.2-1.3) mg/dL AST 25 (14-36) U/L ALT 15 (4-34) U/L Alkaline Phosphatase 66 (38-126) U/L Total Protein 8.0 (6.3-8.2) g/dL Albumin 4.7 (3.5-5.0) g/dL Amylase 80 (30-110) U/L Lipase 199 (23-300) U/L Urine Color Urine Appearance (Clear) Urine pH (5.0-8.0) Ur Specific [place] (1.001-1.035) Urine Protein (Negative) Urine Glucose (UA) (Negative) Urine Ketones (Negative) Urine Blood (Negative) Urine Nitrite (Negative) Urine Bilirubin (Negative) Urine Urobilinogen (<2.0) mg/dL Ur Leukocyte Esterase (Negative) Urine HCG, Qual (Not Detectd) Disposition Clinical Impression: Abdominal pain Disposition: HOME SELF-CARE Condition: Good Instructions (If sedation given, give patient instructions): Abdominal Pain (ED) Additional Instructions: Please follow-up with your doctor as you were directed. If you have any worsening symptoms you can go to the hospital your doctor works out of or you can return here. Otherwise follow-up with primary care in 1-2 days. Is patient prescribed a controlled substance at d/c from ED?: No Referrals: Donavan Guzman DO [Primary Care Provider] - 1-2 days Time of Disposition: 22:53
[2019-12-08] MEDS ORDERED: SODIUM CHLORIDE 0.9% 2,000 ML IV STA (21:02)
[2019-12-08] MEDS ORDERED: ONDANSETRON 4 MG/2 ML VIAL IVP STA (21:02)
[2019-12-08] MEDS ORDERED: HYDROmorphone 1 MG/ML 1 ML SYRINGE IVP STA (21:02)
[2019-12-08 21:36] LABS: Appearance,Urine Clear (Clear); Bilirubin,Urine Negative (Negative); Blood,Urine Negative (Negative); Color,Urine Yellow; Glucose,Urine (UA) Negative (Negative); Ketones,Urine Negative (Negative); Leukocyte Esterase,Urine Negative (Negative); Nitrite,Urine Negative (Negative); Protein,Urine Trace (Negative); Urobilinogen,Urine <2.0 mg/dL (<2.0)
[2019-12-08 21:54] LABS: Basophils % (A) 0 %; Eosinophils # (A) 0.2 k/uL (0-0.7); Eosinophils % (A) 3 %; HCT 36.2 % (34.0-46.0); HGB 12.2 gm/dL (11.4-16.0); Lymphocytes % (A) 38 %; MCH 29.6 pg (25.0-35.0); MCHC 33.7 g/dL (31.0-37.0); MCV 87.9 fL (80.0-100.0); Mean Platelet Volume 7.7; Monocytes # (A) 0.3 k/uL (0-1.0); Monocytes % (A) 6 %; Neutrophils # (A) 2.7 k/uL (1.3-7.7); Neutrophils % (A) 51 %; Platelet Count 234 k/uL (150-450); RBC 4.12 m/uL (3.80-5.40); RDW 11.9 % (11.5-15.5); WBC 5.3 k/uL (3.8-10.6)
[2019-12-08 22:07] LABS: ALT 15 U/L (4-34); AST 25 U/L (14-36); African American GFR (CKD) >90 (>60 ml/min/1.73 sqM); Albumin 4.7 g/dL (3.5-5.0); Alkaline Phosphatase 66 U/L (38-126); Amylase 80 U/L (30-110); Anion Gap 9 mmol/L; Blood Urea Nitrogen 9 mg/dL (7-17); Calcium 9.3 mg/dL (8.4-10.2); Carbon Dioxide 21 mmol/L (22-30); Chloride 107 mmol/L (98-107); Glucose 83 mg/dL (74-99); Non-African American GFR(CKD) >90 (>60 ml/min/1.73 sqM); Potassium 4.2 mmol/L (3.5-5.1); Sodium 137 mmol/L (137-145); Total Bilirubin 0.3 mg/dL (0.2-1.3)
--- NOTE | 2019-12-08 22:17 | XR ---
EXAMINATION TYPE: XR KUB DATE OF EXAM: 12/08/2019 COMPARISON: 12/06/2019 HISTORY: Abdominal pain TECHNIQUE: 2 views upright FINDINGS: There is no sign of intestinal obstruction or pneumoperitoneum. Fecal pattern is normal. Th ere is no sign of a mass. There are no pathologic calcifications over the kidneys. IMPRESSION: Nonacute abdomen. No change.
[2019-12-08] MEDS ORDERED: HYDROmorphone 0.5 MG/0.5 ML SYRINGE IVP STA (22:57)
[2019-12-08 23:13] VITALS: BP 118/80; PULSE 88; RESP 18
== END 2019-12-08 23:20 | disposition home or self-care (01) ==
LOC: EC 20:19
DX: R10.9 Unspecified abdominal pain (principal); R10.817 Generalized abdominal tenderness; R11.10 Vomiting, unspecified; F31.9 Bipolar disorder, unspecified; F41.9 Anxiety disorder, unspecified; Z79.891 Long term (current) use of opiate analgesic; Z79.3 Long term (current) use of hormonal contraceptives; Z79.899 Other long term (current) drug therapy; Z88.0 Allergy status to penicillin; Z88.8 Allergy status to other drugs, medicaments and biological substances; Z88.1 Allergy status to other antibiotic agents; Z87.19 Personal history of other diseases of the digestive system; Z90.49 Acquired absence of other specified parts of digestive tract; Z86.14 Personal history of Methicillin resistant Staphylococcus aureus infection
CPT/HCPCS: 36415; 80053; 82150; 83690; 85025; 81003; 81025; 74018; 99284; 96374; 96375; 96376; 96361; J2405; J1170 ×2

== ENCOUNTER 2020-01-15 22:06 | Emergency (ER) | payer MEDICARE, OTHER ==
[2020-01-15] MEDS ORDERED: SODIUM CHLORIDE 0.9% 1,000 ML IV STA (22:31)
[2020-01-15 23:28] LABS: Basophils % (A) 1 %; Eosinophils # (A) 0.2 k/uL (0-0.7); Eosinophils % (A) 5 %; HCT 34.7 % (34.0-46.0); HGB 11.5 gm/dL (11.4-16.0); Lymphocytes % (A) 46 %; MCH 29.1 pg (25.0-35.0); MCHC 33.2 g/dL (31.0-37.0); Mean Platelet Volume 7.9; Monocytes # (A) 0.3 k/uL (0-1.0); Monocytes % (A) 7 %; Neutrophils # (A) 1.7 k/uL (1.3-7.7); Neutrophils % (A) 39 %; Platelet Count 205 k/uL (150-450); RBC 3.95 m/uL (3.80-5.40); RDW 12.7 % (11.5-15.5); WBC 4.3 k/uL (3.8-10.6)
[2020-01-15] MEDS ORDERED: HYDROmorphone 0.5 MG/0.5 ML SYRINGE IVP STA (23:31)
[2020-01-15] MEDS ORDERED: ONDANSETRON 4 MG/2 ML VIAL IVP STA (23:31)
[2020-01-15 23:36] LABS: MCV 87.7 fL (80.0-100.0)
[2020-01-15 23:39] LABS: ALT 57 U/L (4-34); AST 56 U/L (14-36); African American GFR (CKD) >90 (>60 ml/min/1.73 sqM); Albumin 3.9 g/dL (3.5-5.0); Alkaline Phosphatase 54 U/L (38-126); Amylase 72 U/L (30-110); Anion Gap 8 mmol/L; Blood Urea Nitrogen 9 mg/dL (7-17); Calcium 8.9 mg/dL (8.4-10.2); Carbon Dioxide 25 mmol/L (22-30); Chloride 105 mmol/L (98-107); Glucose 85 mg/dL (74-99); Non-African American GFR(CKD) >90 (>60 ml/min/1.73 sqM); Partial Thromboplastin Time 24.9 sec (22.0-30.0); Potassium 3.6 mmol/L (3.5-5.1); Prothrombin Time 10.5 sec (9.0-12.0); Sodium 138 mmol/L (137-145); Total Bilirubin 0.2 mg/dL (0.2-1.3); Total Protein 6.9 g/dL (6.3-8.2)
[2020-01-16] MEDS ORDERED: HYDROmorphone 0.5 MG/0.5 ML SYRINGE IVP STA ×2 (00:33→01:54)
--- NOTE | 2020-01-16 00:35 | XR ---
EXAMINATION TYPE: XR KUB DATE OF EXAM: 01/16/2020 COMPARISON: 12/08/2019 HISTORY: Abdominal pain TECHNIQUE: 2 views upright FINDINGS: There is no sign of intestinal obstruction or pneumoperitoneum. Fecal pattern is normal. Th ere are no pathologic calcifications. Lung bases are clear. Bony structures are intact. There is no s ign of a mass. IMPRESSION: Nonacute abdomen. No change.
--- NOTE | 2020-01-16 00:50 | ED ---
General Adult HPI - General Chief complaint: Abdominal Pain Stated complaint: Abdominal Pain Time Seen by Provider: 01/15/20 22:30 Source: patient, RN notes reviewed Mode of arrival: ambulatory Limitations: no limitations - History of Present Illness Initial comments: 24-year-old female well-known to this emergency Department with a past medical history of Crohn's, IBD, colitis presents to the emergency department for a chief complaint of abdominal pain 12 weeks. Patient states she has had generalized lower abdominal pain. States her specialist is out of [facility] and she has discussed this with him several times. Patient states she had an en doscopy performed and the lesion was found in her stomach. Patient states that she is also supposed to have a colonoscopy performed outpatient in the near future. Patient states her pain worsen tonight. She passed blood rectally as well. Patient was also vomiting earlier today. She denies fevers.Patient has no other complaints at this time including shortness of breath, chest pain, headache, or visual changes. - Related Data Home Medications Medication Instructions Recorded Confirmed Medroxyprogesterone Acetate 150 mg IM Q90D 03/10/18 12/06/19 [Depo-Provera] Amitriptyline HCl 10 mg PO BID 04/11/18 12/06/19 Lurasidone [Latuda] 80 mg PO HS 03/07/19 12/06/19 oxyCODONE HCL/ACETAMINOPHEN 1 tab PO QID 04/15/19 12/06/19 [Percocet 10-325 mg] Amphetamine [Adzenys Xr-Odt] 3.1 mg PO DAILY 12/06/19 12/06/19 Benztropine Mesylate [Cogentin] 2 mg PO BID 12/06/19 12/06/19 Dicyclomine HCl 10 mg PO TID PRN 12/06/19 12/06/19 FLUoxetine HCL 40 mg PO DAILY 12/06/19 12/06/19 Methocarbamol [Robaxin] 500 mg PO DAILY 12/06/19 12/06/19 Ustekinumab [Stelara] 90 mg IM Q56D 12/06/19 12/06/19 predniSONE [Deltasone] 20 mg PO DAILY 12/06/19 12/06/19 Allergies Allergy/AdvReac Type Severity Reaction Status Date / Time adalimumab [From Humira] Allergy RASH/NAUSEA/VOMITING/JOINT Verified 01/15/20 22:17 PAIN amoxicillin trihydrate Allergy Rash/Hives Verified 01/15/20 22:17 [From Augmentin] potassium clavulanate Allergy Rash/Hives Verified 01/15/20 22:17 [From Augmentin] Review of Systems ROS Statement: Those systems with pertinent positive or pertinent negative responses have been documented in the HPI. ROS Other: All systems not noted in ROS Statement are negative. Past Medical History Past Medical History: No Reported History Additional Past Medical History / Comment(s): crohns, IBD, colitis dx of crohns at age 10. History of Any Multi-Drug Resistant Organisms: C-DIFF, MRSA Date of last positivie culture/infection: 2002, Jul 2019 cdiff MDRO Source:: Hip Past Surgical History: Bowel Resection, Cholecystectomy Additional Past Surgical History / Comment(s): wisdom teeth, bowel resection x 2 in 2017, sepsis after first surgery Past Psychological History: Anxiety, Bipolar, Depression Smoking Status: Never smoker Past Alcohol Use History: None Reported Past Drug Use History: None Reported - Past Family History Mother Family Medical History: Cancer General Exam Limitations: no limitations General appearance: alert, in no apparent distress Head exam: Present: atraumatic, normocephalic, normal inspection Eye exam: Present: normal appearance, PERRL, EOMI. Absent: scleral icterus, conjunctival injection, periorbital swelling ENT exam: Present: normal exam, mucous membranes moist Neck exam: Present: normal inspection, full ROM. Absent: tenderness, meningismus, lymphadenopathy Respiratory exam: Present: normal lung sounds bilaterally. Absent: respiratory distress, wheezes, rales, rhonchi, stridor Cardiovascular Exam: Present: regular rate, normal rhythm, normal heart sounds. Absent: systolic murmur, diastolic murmur, rubs, gallop, clicks GI/Abdominal exam: Present: soft, tenderness (Generalized lower abdominal tenderness without rebound tenderness. No upper abdominal tenderness.), normal bowel sounds. Absent: distended, guarding, rebound, rigid Neurological exam: Present: alert Course Vital Signs 01/15/20 01/15/20 22:13 23:52 Temperature 98.8 F Pulse Rate 114 H 87 Respiratory 16 19 Rate Blood Pressure 123/72 97/60 O2 Sat by Pulse 97 99 Oximetry Medical Decision Making - Medical Decision Making Vitals are stable. Patient has mild abdominal tenderness in the lower abdomen. CBC CMP is unremarkable. Amylase and lipase are normal. Patient is complaining of some rectal bleeding that is likely associated with her Crohn's however she states her GI specialist from [facility] does not want her to be taking steroids. X-ray KUB shows a nonacute abdomen. No change. Patient was given Dilaudid and is feeling much better. States that she thinks that she doesn't take her pain medications and her pain starts and then it gets too hard to manage that if she comes any gets Dilaudid it breaks the cycle. At this time patient is agreeable to discharge home as she is feeling much better. Passed by mouth challenge test. She will return with any worsening symptoms or go to [facility] were specialist is. She will follow up with her specialist on Friday. - Lab Data Result diagrams: 01/15/20 23:15 01/15/20 23:15 Lab Results 01/15/20 01/15/20 01/15/20 Range/Units 23:15 23:15 23:15 WBC 4.3 (3.8-10.6) k/uL RBC 3.95 (3.80-5.40) m/uL Hgb 11.5 (11.4-16.0) gm/dL Hct 34.7 (34.0-46.0) % MCV 87.7 D (80.0-100.0) fL MCH 29.1 (25.0-35.0) pg MCHC 33.2 (31.0-37.0) g/dL RDW 12.7 (11.5-15.5) % Plt Count 205 (150-450) k/uL Neutrophils % 39 % Lymphocytes % 46 % Monocytes % 7 % Eosinophils % 5 % Basophils % 1 % Neutrophils # 1.7 (1.3-7.7) k/uL Lymphocytes # 2.0 (1.0-4.8) k/uL Monocytes # 0.3 (0-1.0) k/uL Eosinophils # 0.2 (0-0.7) k/uL Basophils # 0.0 (0-0.2) k/uL PT 10.5 (9.0-12.0) sec INR 1.0 (<1.2) APTT 24.9 (22.0-30.0) sec Sodium 138 (137-145) mmol/L Potassium 3.6 (3.5-5.1) mmol/L Chloride 105 (98-107) mmol/L Carbon Dioxide 25 (22-30) mmol/L Anion Gap 8 mmol/L BUN 9 (7-17) mg/dL Creatinine 0.64 (0.52-1.04) mg/dL Est GFR (CKD-EPI)AfAm >90 (>60 ml/min/1.73 sqM) Est GFR (CKD-EPI)NonAf >90 (>60 ml/min/1.73 sqM) Glucose 85 (74-99) mg/dL Calcium 8.9 (8.4-10.2) mg/dL Total Bilirubin 0.2 (0.2-1.3) mg/dL AST 56 H (14-36) U/L ALT 57 H (4-34) U/L Alkaline Phosphatase 54 (38-126) U/L Total Protein 6.9 (6.3-8.2) g/dL Albumin 3.9 (3.5-5.0) g/dL Amylase 72 (30-110) U/L Lipase 232 (23-300) U/L HCG, Qual 01/15/20 Range/Units 23:59 WBC (3.8-10.6) k/uL RBC (3.80-5.40) m/uL Hgb (11.4-16.0) gm/dL Hct (34.0-46.0) % MCV (80.0-100.0) fL MCH (25.0-35.0) pg MCHC (31.0-37.0) g/dL RDW (11.5-15.5) % Plt Count (150-450) k/uL Neutrophils % % Lymphocytes % % Monocytes % % Eosinophils % % Basophils % % Neutrophils # (1.3-7.7) k/uL Lymphocytes # (1.0-4.8) k/uL Monocytes # (0-1.0) k/uL Eosinophils # (0-0.7) k/uL Basophils # (0-0.2) k/uL PT (9.0-12.0) sec INR (<1.2) APTT (22.0-30.0) sec Sodium (137-145) mmol/L Potassium (3.5-5.1) mmol/L Chloride (98-107) mmol/L Carbon Dioxide (22-30) mmol/L Anion Gap mmol/L BUN (7-17) mg/dL Creatinine (0.52-1.04) mg/dL Est GFR (CKD-EPI)AfAm (>60 ml/min/1.73 sqM) Est GFR (CKD-EPI)NonAf (>60 ml/min/1.73 sqM) Glucose (74-99) mg/dL Calcium (8.4-10.2) mg/dL Total Bilirubin (0.2-1.3) mg/dL AST (14-36) U/L ALT (4-34) U/L Alkaline Phosphatase (38-126) U/L Total Protein (6.3-8.2) g/dL Albumin (3.5-5.0) g/dL Amylase (30-110) U/L Lipase (23-300) U/L HCG, Qual Not Detected Disposition Clinical Impression: Abdominal pain Disposition: HOME SELF-CARE Condition: Good Instructions (If sedation given, give patient instructions): Abdominal Pain (ED) Additional Instructions: Please drink plenty of fluids. Follow-up with your GI specialist in 1-2 days. Return to the emergency room for any worsening symptoms. Is patient prescribed a controlled substance at d/c from ED?: No Referrals: Donavan Guzman DO [Primary Care Provider] - 1-2 days Time of Disposition: 01:49
[2020-01-16] MEDS ORDERED: SODIUM CHLORIDE 0.9% 1,000 ML IV STA (01:08)
[2020-01-16 02:07] VITALS: BP 110/79; PULSE 91; RESP 18; TEMP 98.2
== END 2020-01-16 02:06 | disposition home or self-care (01) ==
LOC: EC 22:06
DX: R10.30 Lower abdominal pain, unspecified (principal); R11.10 Vomiting, unspecified; K62.5 Hemorrhage of anus and rectum; K50.90 Crohn's disease, unspecified, without complications; F41.9 Anxiety disorder, unspecified; F31.9 Bipolar disorder, unspecified; Z79.899 Other long term (current) drug therapy; Z88.0 Allergy status to penicillin; Z88.1 Allergy status to other antibiotic agents; Z88.8 Allergy status to other drugs, medicaments and biological substances; Z90.49 Acquired absence of other specified parts of digestive tract
CPT/HCPCS: 36415; 80053; 82150; 83690; 85025; 85610; 85730; 84703; 74018; 99284; 96374; 96375; 96376 ×2; 96361 ×2; J2405; J1170 ×2

== ENCOUNTER 2020-02-06 21:11 | Emergency (ER) | payer MEDICARE, OTHER ==
[2020-02-06] MEDS ORDERED: HYDROmorphone 1 MG/ML 1 ML SYRINGE IVP STA (22:55)
[2020-02-06 23:10] LABS: Basophils % (A) 1 %; Eosinophils # (A) 0.1 k/uL (0-0.7); Eosinophils % (A) 1 %; HCT 37.8 % (34.0-46.0); HGB 12.3 gm/dL (11.4-16.0); Lymphocytes # (A) 2.4 k/uL (1.0-4.8); Lymphocytes % (A) 38 %; MCH 28.5 pg (25.0-35.0); MCHC 32.5 g/dL (31.0-37.0); MCV 87.5 fL (80.0-100.0); Mean Platelet Volume 7.7; Monocytes # (A) 0.3 k/uL (0-1.0); Monocytes % (A) 5 %; Neutrophils # (A) 3.3 k/uL (1.3-7.7); Neutrophils % (A) 53 %; Platelet Count 242 k/uL (150-450); RBC 4.32 m/uL (3.80-5.40); RDW 12.8 % (11.5-15.5); WBC 6.3 k/uL (3.8-10.6)
[2020-02-06 23:16] LABS: Appearance,Urine Clear (Clear); Bilirubin,Urine Negative (Negative); Blood,Urine Negative (Negative); Color,Urine Yellow; Glucose,Urine (UA) Negative (Negative); Ketones,Urine Trace (Negative); Leukocyte Esterase,Urine Moderate (Negative); Mucus,Urine Many /hpf; Nitrite,Urine Negative (Negative); PH, Urine 5.5 (5.0-8.0); Protein,Urine Negative (Negative); RBC,Urine <1 /hpf (0-5); Specific Gravity,Urine 1.015 (1.001-1.035); Squamous Epithelial Cell,Urine 1 /hpf (0-4); Urobilinogen,Urine <2.0 mg/dL (<2.0); WBC,Urine 7 /hpf (0-5)
[2020-02-07 00:13] VITALS: RESP 17
[2020-02-07] MEDS ORDERED: HYDROmorphone 1 MG/ML 1 ML SYRINGE IVP STA (00:55)
[2020-02-07] MEDS ORDERED: SODIUM CHLORIDE 0.9% 1,000 ML IV ONE (00:55)
[2020-02-07 01:24] LABS: ALT 22 U/L (4-34); AST 28 U/L (14-36); African American GFR (CKD) >90 (>60 ml/min/1.73 sqM); Alkaline Phosphatase 54 U/L (38-126); Anion Gap 8 mmol/L; Blood Urea Nitrogen 7 mg/dL (7-17); Calcium 9.3 mg/dL (8.4-10.2); Carbon Dioxide 21 mmol/L (22-30); Chloride 109 mmol/L (98-107); Glucose 87 mg/dL (74-99); Non-African American GFR(CKD) >90 (>60 ml/min/1.73 sqM); Potassium 3.8 mmol/L (3.5-5.1); Sodium 138 mmol/L (137-145); Total Bilirubin 0.3 mg/dL (0.2-1.3); Total Protein 7.2 g/dL (6.3-8.2)
--- NOTE | 2020-02-07 01:57 | ED ---
General Adult HPI - General Chief complaint: Abdominal Pain Stated complaint: Crohns Flare,Vomiting Time Seen by Provider: 02/06/20 21:22 Source: patient, RN notes reviewed, old records reviewed Mode of arrival: ambulatory Limitations: no limitations - History of Present Illness Initial comments: 24-year-old female patient well known to this emergency department presents to ED for evaluation of left lower quadrant abdominal pain. Patient reports that this pain is identical to the chronic abdominal pain that she always has. Denies any new or concerning features. Denies any other complaints at this time. Systemic: Pt denies fatigue, fever/chills, rash. Pt denies weakness, night sweats, weight loss. Neuro: Pt denies headache, visual disturbances, syncope or pre-syncope. HEENT: Pt denies ocular discharge or irritation, otalgia, rhinorrhea, phary ngitis or notable lymphadenopathy. Cardiopulmonary: Pt denies chest pain, SOB, heart palpitations, dyspnea on exertion. Abdominal/GI: Pt denies n/v/d. : Pt denies dysuria, burning w/ urination, frequency/urgency. Denies new onset urinary or bowel incontinence. MSK: Pt denies myalgia, loss of strength or function in extremities. Neuro: Pt denies new onset weakness, paresthesias. - Related Data Home Medications Medication Instructions Recorded Confirmed Medroxyprogesterone Acetate 150 mg IM Q90D 03/10/18 12/06/19 [Depo-Provera] Amitriptyline HCl 10 mg PO BID 04/11/18 12/06/19 Lurasidone [Latuda] 80 mg PO HS 03/07/19 12/06/19 oxyCODONE HCL/ACETAMINOPHEN 1 tab PO QID 04/15/19 12/06/19 [Percocet 10-325 mg] Amphetamine [Adzenys Xr-Odt] 3.1 mg PO DAILY 12/06/19 12/06/19 Benztropine Mesylate [Cogentin] 2 mg PO BID 12/06/19 12/06/19 Dicyclomine HCl 10 mg PO TID PRN 12/06/19 12/06/19 FLUoxetine HCL 40 mg PO DAILY 12/06/19 12/06/19 Methocarbamol [Robaxin] 500 mg PO DAILY 12/06/19 12/06/19 Ustekinumab [Stelara] 90 mg IM Q56D 12/06/19 12/06/19 predniSONE [Deltasone] 20 mg PO DAILY 12/06/19 12/06/19 Previous Rx's Medication Instructions Recorded Cephalexin [Keflex] 500 mg PO Q12HR 10 Days #20 cap 02/07/20 Allergies Allergy/AdvReac Type Severity Reaction Status Date / Time adalimumab [From Humira] Allergy RASH/NAUSEA/VOMITING/JOINT Verified 02/06/20 21:17 PAIN amoxicillin trihydrate Allergy Rash/Hives Verified 02/06/20 21:17 [From Augmentin] potassium clavulanate Allergy Rash/Hives Verified 02/06/20 21:17 [From Augmentin] Review of Systems ROS Statement: Those systems with pertinent positive or pertinent negative responses have been documented in the HPI. ROS Other: All systems not noted in ROS Statement are negative. Past Medical History Past Medical History: No Reported History Additional Past Medical History / Comment(s): crohns, IBD, colitis dx of crohns at age 10. History of Any Multi-Drug Resistant Organisms: C-DIFF, MRSA Date of last positivie culture/infection: 2002, Jul 2019 cdiff MDRO Source:: Hip Past Surgical History: Bowel Resection, Cholecystectomy Additional Past Surgical History / Comment(s): wisdom teeth, bowel resection x 2 in 2017, sepsis after first surgery Past Psychological History: Anxiety, Bipolar, Depression Smoking Status: Never smoker Past Alcohol Use History: None Reported Past Drug Use History: None Reported - Past Family History Mother Family Medical History: Cancer General Exam - General Exam Comments Initial Comments: Constitutional: NAD, AOX3, Pt has pleasant affect. HEENT: NC/AT, trachea midline, neck supple, no lymphadenopathy. External ears appear normal, without discharge. Mucous membranes moist. Eyes PERRLA, EOM intact. There is no scleral icterus. No pallor noted. Cardiopulmonary: RRR, no murmurs, rubs or gallops, no JVD noted. Lungs CTAB in anterior and posterior aquino. No peripheral edema. Abdominal exam: Abdomen soft and non-distended. Abdomen mildly tender to palpation left lower quadrant. Bowel sounds active in LLQ. No hepatosplenomeg stefan. No ecchymosis Neuro: CN II-XII grossly intact. No nuchal rigidity. No raccon eyes, no byers sign, no hemotympanum. No cervical spinal tenderness. MSK: Full active ROM in upper and lower extremities, 5/5 stregnth. Limitations: no limitations Course Vital Signs 02/06/20 02/07/20 21:13 00:10 Temperature 98.5 F 98.2 F Pulse Rate 110 H 95 Respiratory 18 17 Rate Blood Pressure 124/84 109/71 O2 Sat by Pulse 100 98 Oximetry Medical Decision Making - Medical Decision Making 24-year-old female patient presents to clinic chronic abdominal pain. Left lower quadrant nature. Patient will signs are stable, afebrile. Physical exam for left lower quadrant tenderness. UA displayed mild urinary tract infection. Otherwise laboratory investigations are stable. Patient was this pain is identical to what she has had in the past. Shared decision-making no imaging will be obtained. 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 Case discussed with Dr. Ca. - Lab Data Result diagrams: 02/06/20 22:53 02/07/20 00:41 Lab Results 02/06/20 02/06/20 02/06/20 Range/Units 22:53 22:53 22:53 WBC 6.3 (3.8-10.6) k/uL RBC 4.32 (3.80-5.40) m/uL Hgb 12.3 (11.4-16.0) gm/dL Hct 37.8 (34.0-46.0) % MCV 87.5 (80.0-100.0) fL MCH 28.5 (25.0-35.0) pg MCHC 32.5 (31.0-37.0) g/dL RDW 12.8 (11.5-15.5) % Plt Count 242 (150-450) k/uL Neutrophils % 53 % Lymphocytes % 38 % Monocytes % 5 % Eosinophils % 1 % Basophils % 1 % Neutrophils # 3.3 (1.3-7.7) k/uL Lymphocytes # 2.4 (1.0-4.8) k/uL Monocytes # 0.3 (0-1.0) k/uL Eosinophils # 0.1 (0-0.7) k/uL Basophils # 0.0 (0-0.2) k/uL Sodium (137-145) mmol/L Potassium (3.5-5.1) mmol/L Chloride (98-107) mmol/L Carbon Dioxide (22-30) mmol/L Anion Gap mmol/L BUN (7-17) mg/dL Creatinine (0.52-1.04) mg/dL Est GFR (CKD-EPI)AfAm (>60 ml/min/1.73 sqM) Est GFR (CKD-EPI)NonAf (>60 ml/min/1.73 sqM) Glucose (74-99) mg/dL Plasma Lactic Acid Rehan (0.7-2.0) mmol/L Calcium (8.4-10.2) mg/dL Total Bilirubin (0.2-1.3) mg/dL AST (14-36) U/L ALT (4-34) U/L Alkaline Phosphatase (38-126) U/L Total Protein (6.3-8.2) g/dL Albumin (3.5-5.0) g/dL Lipase (23-300) U/L Urine Color Yellow Urine Appearance Clear (Clear) Urine pH 5.5 (5.0-8.0) Ur Specific [place] 1.015 (1.001-1.035) Urine Protein Negative (Negative) Urine Glucose (UA) Negative (Negative) Urine Ketones Trace H (Negative) Urine Blood Negative (Negative) Urine Nitrite Negative (Negative) Urine Bilirubin Negative (Negative) Urine Urobilinogen <2.0 (<2.0) mg/dL Ur Leukocyte Esterase Moderate H (Negative) Urine RBC <1 (0-5) /hpf Urine WBC 7 H (0-5) /hpf Ur Squamous Epith Cells 1 (0-4) /hpf Urine Mucus Many H (None) /hpf Urine HCG, Qual Not Detected (Not Detectd) 02/07/20 02/07/20 Range/Units 00:41 00:41 WBC (3.8-10.6) k/uL RBC (3.80-5.40) m/uL Hgb (11.4-16.0) gm/dL Hct (34.0-46.0) % MCV (80.0-100.0) fL MCH (25.0-35.0) pg MCHC (31.0-37.0) g/dL RDW (11.5-15.5) % Plt Count (150-450) k/uL Neutrophils % % Lymphocytes % % Monocytes % % Eosinophils % % Basophils % % Neutrophils # (1.3-7.7) k/uL Lymphocytes # (1.0-4.8) k/uL Monocytes # (0-1.0) k/uL Eosinophils # (0-0.7) k/uL Basophils # (0-0.2) k/uL Sodium 138 (137-145) mmol/L Potassium 3.8 (3.5-5.1) mmol/L Chloride 109 H (98-107) mmol/L Carbon Dioxide 21 L (22-30) mmol/L Anion Gap 8 mmol/L BUN 7 (7-17) mg/dL Creatinine 0.52 (0.52-1.04) mg/dL Est GFR (CKD-EPI)AfAm >90 (>60 ml/min/1.73 sqM) Est GFR (CKD-EPI)NonAf >90 (>60 ml/min/1.73 sqM) Glucose 87 (74-99) mg/dL Plasma Lactic Acid Rehan 0.7 (0.7-2.0) mmol/L Calcium 9.3 (8.4-10.2) mg/dL Total Bilirubin 0.3 (0.2-1.3) mg/dL AST 28 (14-36) U/L ALT 22 (4-34) U/L Alkaline Phosphatase 54 (38-126) U/L Total Protein 7.2 (6.3-8.2) g/dL Albumin 4.0 (3.5-5.0) g/dL Lipase 274 (23-300) U/L Urine Color Urine Appearance (Clear) Urine pH (5.0-8.0) Ur Specific [place] (1.001-1.035) Urine Protein (Negative) Urine Glucose (UA) (Negative) Urine Ketones (Negative) Urine Blood (Negative) Urine Nitrite (Negative) Urine Bilirubin (Negative) Urine Urobilinogen (<2.0) mg/dL Ur Leukocyte Esterase (Negative) Urine RBC (0-5) /hpf Urine WBC (0-5) /hpf Ur Squamous Epith Cells (0-4) /hpf Urine Mucus (None) /hpf Urine HCG, Qual (Not Detectd) Disposition Clinical Impression: Chronic abdominal pain, UTI (urinary tract infection) Disposition: HOME SELF-CARE Condition: Stable Instructions (If sedation given, give patient instructions): Abdominal Pain (ED) Additional Instructions: Follow-up with primary care provider and filler shredding machine loader tomorrow. Return to ER if condition worsens. Prescriptions: Cephalexin [Keflex] 500 mg PO Q12HR 10 Days #20 cap Is patient prescribed a controlled substance at d/c from ED?: No Referrals: Donavan Guzman DO [Primary Care Provider] - 1-2 days
[2020-02-07 02:19] VITALS: BP 104/71; PULSE 76; TEMP 98.6
== END 2020-02-07 02:21 | disposition home or self-care (01) ==
LOC: EC 21:11
DX: N39.0 Urinary tract infection, site not specified (principal); G89.29 Other chronic pain; F31.9 Bipolar disorder, unspecified; F41.9 Anxiety disorder, unspecified; K58.9 Irritable bowel syndrome, unspecified; Z79.899 Other long term (current) drug therapy; Z86.14 Personal history of Methicillin resistant Staphylococcus aureus infection; Z88.0 Allergy status to penicillin; Z88.1 Allergy status to other antibiotic agents; Z88.8 Allergy status to other drugs, medicaments and biological substances; Z90.49 Acquired absence of other specified parts of digestive tract; Z98.890 Other specified postprocedural states
CPT/HCPCS: 36415; 80053; 83605; 83690; 85025; 81001; 81025; 99284; 96365; 96375; 96376; 96361; J0696; J1170 ×2

== ENCOUNTER 2020-06-17 23:56 | Emergency (ER) | payer MEDICARE, OTHER ==
[2020-06-18] MEDS ORDERED: ONDANSETRON 4 MG/2 ML VIAL IVP STA (00:21)
[2020-06-18] MEDS ORDERED: HYDROmorphone 1 MG/ML 1 ML SYRINGE IVP STA ×2 (00:21→02:28)
[2020-06-18] MEDS ORDERED: SODIUM CHLORIDE 0.9% 1,000 ML IV STA ×2 (00:21)
--- NOTE | 2020-06-18 00:29 | ED ---
Abdominal Pain HPI - General Chief Complaint: Abdominal Pain Stated Complaint: Abdominal pain Time Seen by Provider: 06/18/20 00:08 Source: patient, family, RN notes reviewed, old records reviewed Mode of arrival: wheelchair Limitations: no limitations - History of Present Illness Initial Comments: Patient is a 25-year-old female history of Crohn's disease who presents emergency department today for chief complaint of refill of her pain medication. Patient was discharged from [facility] one week ago on oral liquid Dilaudid every 4 hours for pain management. She receives TPN throughPICC line every 12 hours. She states that she was diagnosed with a bowel obstruction [facility] and had a bowel dilation procedure completed. She reports that she's had no further vomiting. She reports she's had 7 loose her stools today. Patient reports that she has followed with multiple specialist regards to her Crohn's disease and is going to [facility] on June 26. Patient's mother reports that the main reason they are here is to have a refill of pain medication until she can see her primary care doctor on Friday. - Related Data Home Medications Medication Instructions Recorded Confirmed Medroxyprogesterone Acetate 150 mg IM Q90D 03/10/18 05/17/20 [Depo-Provera] Amitriptyline HCl 20 mg PO HS 04/11/18 05/17/20 Lurasidone [Latuda] 80 mg PO HS 03/07/19 05/17/20 Benztropine Mesylate [Cogentin] 2 mg PO BID 12/06/19 05/17/20 Ustekinumab [Stelara] 90 mg IM Q56D 12/06/19 05/17/20 Amphetamine [Adzenys Xr-Odt] 6.3 mg PO DAILY 05/17/20 05/17/20 Bisacodyl 5 mg PO BID PRN 05/17/20 05/17/20 Buprenorphine HCl [Belbuca] 300 mcg BC Q12H 05/17/20 05/17/20 Dicyclomine [Bentyl] 10 mg PO BID 05/17/20 05/17/20 FLUoxetine HCL [PROzac Weekly] 90 mg PO WE 05/17/20 05/17/20 Fluticasone Nasal [place] [Flonase 1 spray EA NOSTRIL DAILY 05/17/20 05/17/20 Nasal [place]] Loratadine [Claritin] 10 mg PO DAILY 05/17/20 05/17/20 Metoclopramide HCl [Reglan] 10 mg PO Q6H PRN 05/17/20 05/17/20 Na Phos,M-B/Na Phos,Di-Ba [Fleet 133 ml RECTAL DAILY PRN 05/17/20 05/17/20 Adult] Omeprazole [PriLOSEC] 40 mg PO HS 05/17/20 05/17/20 Ondansetron [Zofran ODT] 4 mg PO Q8HR PRN 05/17/20 05/17/20 Vitamin C/Biotin [Hair, Skin and 2 tab PO HS 05/17/20 05/17/20 Nails] hydrOXYzine pamoate [Vistaril] 100 mg PO TID PRN 05/17/20 05/17/20 oxyCODONE HCL/ACETAMINOPHEN 1 tab PO TID 05/17/20 05/17/20 [Percocet 7.5-325 mg] Previous Rx's Medication Instructions Recorded Acetaminophen/Codeine Liquid 10 ml PO Q4H PRN 3 Days #180 ml 06/18/20 [Tylenol w/codeine Elixir] Allergies Allergy/AdvReac Type Severity Reaction Status Date / Time adalimumab [From Humira] Allergy RASH/NAUSEA/VOMITING/JOINT Verified 06/18/20 00:02 PAIN amoxicillin trihydrate Allergy Rash/Hives Verified 06/18/20 00:02 [From Augmentin] potassium clavulanate Allergy Rash/Hives Verified 06/18/20 00:02 [From Augmentin] Review of Systems ROS Statement: Those systems with pertinent positive or pertinent negative responses have been documented in the HPI. ROS Other: All systems not noted in ROS Statement are negative. Past Medical History Past Medical History: No Reported History Additional Past Medical History / Comment(s): crohns, IBD, colitis dx of crohns at age 10. History of Any Multi-Drug Resistant Organisms: C-DIFF, MRSA Date of last positivie culture/infection: 2002, Jul 2019 cdiff MDRO Source:: Hip Past Surgical History: Bowel Resection, Cholecystectomy Additional Past Surgical History / Comment(s): wisdom teeth, bowel resection x 2 in 2017, sepsis after first surgery Past Anesthesia/Blood Transfusion Reactions: No Reported Reaction Past Psychological History: Anxiety, Bipolar, Depression, PTSD Smoking Status: Never smoker Past Alcohol Use History: None Reported Past Drug Use History: None Reported - Past Family History Mother Family Medical History: Cancer Father Family Medical History: No Reported History General Exam - General Exam Comments Initial Comments: 25 year old female, moderate discomfort. Limitations: no limitations General appearance: alert, in no apparent distress Head exam: Present: atraumatic, normocephalic, normal inspection Eye exam: Present: normal appearance, PERRL, EOMI. Absent: scleral icterus, conjunctival injection, periorbital swelling ENT exam: Present: normal exam, mucous membranes moist Neck exam: Present: normal inspection. Absent: tenderness, meningismus, lym phadenopathy Respiratory exam: Present: normal lung sounds bilaterally. Absent: respiratory distress, wheezes, rales, rhonchi, stridor Cardiovascular Exam: Present: regular rate, normal rhythm, normal heart sounds. Absent: systolic murmur, diastolic murmur, rubs, gallop, clicks GI/Abdominal exam: Present: soft, tenderness (left lower quadrant tenderness), normal bowel sounds, other (scar over mid abdomen). Absent: distended, guarding, rebound, rigid Extremities exam: Present: normal inspection, full ROM, normal capillary refill. Absent: tenderness, pedal edema, joint swelling, calf tenderness Back exam: Present: normal inspection, full ROM Neurological exam: Present: alert, oriented X3, CN II-XII intact Psychiatric exam: Present: normal affect, normal mood Skin exam: Present: warm, dry, intact, normal color. Absent: rash Course Vital Signs 06/17/20 23:57 Temperature 98.9 F Pulse Rate 110 H Respiratory 20 Rate Blood Pressure 113/78 O2 Sat by Pulse 100 Oximetry - Reevaluation(s) Reevaluation #1: 06/18/20 01:54 Patient was reevaluated and resting comfortably in bed. Patient sitting on phone. Appears in no distress. Medical Decision Making - Medical Decision Making 25-year-old female presents to the ER for evaluation for chronic abdominal pain related to Crohn's and being out of her current medication of liquid Dilaudid. She was recently hospitalized at [facility] for 3 weeks and discharged last week. She does have a PICC line receiving TPN. Patient mother was requesting PICC line dressing change. This was completed and appears well. Patienthad lab work obtained today she did have some episodes of diarrhea. She reported occasionally seeing blood. However patient's hemoglobin is stable at this timeat 10.6. Last week and 7.7. Patient was reevaluated and resting in bed appears in no distress. Discussed Patient is follow-up with primary care doctor for further pain management prescriptions and following up with her GI specialist. She does have an appointment with the [facility] in June. - Lab Data Result diagrams: 06/18/20 00:44 06/18/20 00:44 Lab Results 06/18/20 06/18/20 06/18/20 Range/Units 00:44 00:44 00:44 WBC 6.7 (3.8-10.6) k/uL RBC 3.74 L (3.80-5.40) m/uL Hgb 10.6 L (11.4-16.0) gm/dL Hct 34.8 (34.0-46.0) % MCV 92.9 (80.0-100.0) fL MCH 28.2 (25.0-35.0) pg MCHC 30.4 L (31.0-37.0) g/dL RDW 15.2 (11.5-15.5) % Plt Count 278 (150-450) k/uL Neutrophils % 66 % Lymphocytes % 26 % Monocytes % 6 % Eosinophils % 1 % Basophils % 0 % Neutrophils # 4.4 (1.3-7.7) k/uL Lymphocytes # 1.8 (1.0-4.8) k/uL Monocytes # 0.4 (0-1.0) k/uL Eosinophils # 0.1 (0-0.7) k/uL Basophils # 0.0 (0-0.2) k/uL Sodium 138 (137-145) mmol/L Potassium 3.5 (3.5-5.1) mmol/L Chloride 109 H (98-107) mmol/L Carbon Dioxide 23 (22-30) mmol/L Anion Gap 6 mmol/L BUN 12 (7-17) mg/dL Creatinine 0.63 (0.52-1.04) mg/dL Est GFR (CKD-EPI)AfAm >90 (>60 ml/min/1.73 sqM) Est GFR (CKD-EPI)NonAf >90 (>60 ml/min/1.73 sqM) Glucose 94 (74-99) mg/dL Calcium 8.8 (8.4-10.2) mg/dL Total Bilirubin 0.2 (0.2-1.3) mg/dL AST 15 (14-36) U/L ALT 14 (4-34) U/L Alkaline Phosphatase 60 (38-126) U/L Total Protein 6.2 L (6.3-8.2) g/dL Albumin 3.3 L (3.5-5.0) g/dL Amylase 44 (30-110) U/L Lipase 77 (23-300) U/L Urine Color Light Yellow Urine Appearance Clear (Clear) Urine pH 8.0 (5.0-8.0) Ur Specific [place] 1.008 (1.001-1.035) Urine Protein Negative (Negative) Urine Glucose (UA) Negative (Negative) Urine Ketones Negative (Negative) Urine Blood Negative (Negative) Urine Nitrite Negative (Negative) Urine Bilirubin Negative (Negative) Urine Urobilinogen <2.0 (<2.0) mg/dL Ur Leukocyte Esterase Negative (Negative) Disposition Clinical Impression: Crohn disease, Chronic abdominal pain Disposition: HOME SELF-CARE Condition: Stable Instructions (If sedation given, give patient instructions): Crohn Disease (ED) Additional Instructions: Pt advised to follow-up with your primary care physician. Return to the emergency department if any alarming signs or symptoms occur. Prescriptions: Acetaminophen/Codeine Liquid [Tylenol w/codeine Elixir] 10 ml PO Q4H PRN 3 Days #180 ml PRN Reason: Pain Is patient prescribed a controlled substance at d/c from ED?: Yes When asked, does pt state using other controlled substances?: Yes If prescribed controlled substance>3 days was MAPS reviewed?: Prescribed <3 Days If opioid is for acute pain is fill amount 7 days or less?: Yes If Rx opioid, was Start Talking consent form obtained?: Yes Referrals: Donavan Guzman DO [Primary Care Provider] - 1-2 days Time of Disposition: 01:56
[2020-06-18 00:54] LABS: Basophils % (A) 0 %; Eosinophils # (A) 0.1 k/uL (0-0.7); Eosinophils % (A) 1 %; HCT 34.8 % (34.0-46.0); HGB 10.6 gm/dL (11.4-16.0); Lymphocytes # (A) 1.8 k/uL (1.0-4.8); Lymphocytes % (A) 26 %; MCH 28.2 pg (25.0-35.0); MCHC 30.4 g/dL (31.0-37.0); MCV 92.9 fL (80.0-100.0); Monocytes # (A) 0.4 k/uL (0-1.0); Monocytes % (A) 6 %; Neutrophils # (A) 4.4 k/uL (1.3-7.7); Neutrophils % (A) 66 %; Platelet Count 278 k/uL (150-450); RBC 3.74 m/uL (3.80-5.40); RDW 15.2 % (11.5-15.5); WBC 6.7 k/uL (3.8-10.6)
[2020-06-18 00:55] LABS: Appearance,Urine Clear (Clear); Bilirubin,Urine Negative (Negative); Blood,Urine Negative (Negative); Color,Urine Light Yellow; Glucose,Urine (UA) Negative (Negative); Ketones,Urine Negative (Negative); Leukocyte Esterase,Urine Negative (Negative); Nitrite,Urine Negative (Negative); Protein,Urine Negative (Negative); Specific Gravity,Urine 1.008 (1.001-1.035); Urobilinogen,Urine <2.0 mg/dL (<2.0)
[2020-06-18 01:02] LABS: ALT 14 U/L (4-34); AST 15 U/L (14-36); African American GFR (CKD) >90 (>60 ml/min/1.73 sqM); Albumin 3.3 g/dL (3.5-5.0); Alkaline Phosphatase 60 U/L (38-126); Amylase 44 U/L (30-110); Anion Gap 6 mmol/L; Blood Urea Nitrogen 12 mg/dL (7-17); Calcium 8.8 mg/dL (8.4-10.2); Carbon Dioxide 23 mmol/L (22-30); Chloride 109 mmol/L (98-107); Glucose 94 mg/dL (74-99); Non-African American GFR(CKD) >90 (>60 ml/min/1.73 sqM); Potassium 3.5 mmol/L (3.5-5.1); Sodium 138 mmol/L (137-145); Total Bilirubin 0.2 mg/dL (0.2-1.3); Total Protein 6.2 g/dL (6.3-8.2)
[2020-06-18 03:11] VITALS: BP 95/64; PULSE 91; RESP 18; TEMP 98.6
== END 2020-06-18 03:12 | disposition home or self-care (01) ==
LOC: EC 23:56
DX: K50.90 Crohn's disease, unspecified, without complications (principal); G89.29 Other chronic pain; F41.9 Anxiety disorder, unspecified; F43.10 Post-traumatic stress disorder, unspecified; F31.9 Bipolar disorder, unspecified; Z79.891 Long term (current) use of opiate analgesic; Z79.3 Long term (current) use of hormonal contraceptives; Z79.899 Other long term (current) drug therapy; Z79.51 Long term (current) use of inhaled steroids; Z88.8 Allergy status to other drugs, medicaments and biological substances; Z88.0 Allergy status to penicillin; Z88.1 Allergy status to other antibiotic agents; Z90.49 Acquired absence of other specified parts of digestive tract
CPT/HCPCS: 36415; 80053; 82150; 83690; 85025; 81003; 99284; 96374; 96375; 96376; 96361 ×2; J2405; J1170

== ENCOUNTER → 2020-07-31 | Outpatient (CLI) | payer MEDICARE, OTHER ==
[2020-07-31 16:57] LABS: Basophils % (A) 1 %; Eosinophils # (A) 0.1 k/uL (0-0.7); Eosinophils % (A) 1 %; HCT 40.3 % (34.0-46.0); HGB 13.2 gm/dL (11.4-16.0); Lymphocytes # (A) 1.6 k/uL (1.0-4.8); Lymphocytes % (A) 32 %; MCH 30.1 pg (25.0-35.0); MCHC 32.7 g/dL (31.0-37.0); Mean Platelet Volume 8.4; Monocytes # (A) 0.3 k/uL (0-1.0); Monocytes % (A) 6 %; Neutrophils # (A) 2.9 k/uL (1.3-7.7); Neutrophils % (A) 58 %; Platelet Count 176 k/uL (150-450); RBC 4.38 m/uL (3.80-5.40); RDW 13.7 % (11.5-15.5); WBC 4.9 k/uL (3.8-10.6)
[2020-07-31 17:26] LABS: ALT 113 U/L (4-34); AST 65 U/L (14-36); African American GFR (CKD) >90 (>60 ml/min/1.73 sqM); Albumin 4.3 g/dL (3.5-5.0); Albumin/Globulin Ratio 1.2; Alkaline Phosphatase 57 U/L (38-126); Anion Gap 10 mmol/L; Blood Urea Nitrogen 12 mg/dL (7-17); Calcium 9.3 mg/dL (8.4-10.2); Carbon Dioxide 22 mmol/L (22-30); Chloride 109 mmol/L (98-107); Globulin 3.7 g/dL; Glucose 100 mg/dL (74-99); Non-African American GFR(CKD) >90 (>60 ml/min/1.73 sqM); Phosphorus 3.5 mg/dL (2.5-4.5); Potassium 4.3 mmol/L (3.5-5.1); Sodium 141 mmol/L (137-145); Total Bilirubin 0.3 mg/dL (0.2-1.3); Triglycerides 65 mg/dL (<150)
== END | disposition home or self-care (01) ==
LOC: LABWHC1 16:02
PROVIDERS: ATTEND Colon & Rectal Surgery
DX: K50.90 Crohn's disease, unspecified, without complications (principal)
CPT/HCPCS: 36415; 80053; 83735; 84100; 84478; 85025

== ENCOUNTER 2020-08-07 22:27 | Emergency (ER) | payer MEDICARE, OTHER ==
[2020-08-07 22:33] VITALS: TEMP 98.5
--- NOTE | 2020-08-07 22:57 | ED ---
General Adult HPI - General Chief complaint: Recheck/Abnormal Lab/Rx Stated complaint: Lump by port Time Seen by Provider: 08/07/20 22:38 Source: patient Mode of arrival: ambulatory Limitations: no limitations - History of Present Illness Initial comments: This patient is 25-year-old woman has a Mediport placement for TPN, states that tonight when she flushed the port she experienced pain to the right side of her neck, and was concerned that there may be some thrombosis related to the port. She previously had a PICC line in the left arm which became thrombosed requiring changing her to the port. Patient states she has been on eliquis and is taking it as directed. She has not noted chest pain, palpitations, dyspnea, cough or hemoptysis, lightheadedness or syncope. -: hour(s) Location: neck Radiation: non-radiation Quality: aching Consistency: constant Improves with: none Worsens with: none Associated Symptoms: denies other symptoms Treatments Prior to Arrival: none - Related Data Home Medications Medication Instructions Recorded Confirmed Medroxyprogesterone Acetate 150 mg IM Q90D 03/10/18 08/07/20 [Depo-Provera] Amitriptyline HCl 20 mg PO HS 04/11/18 08/07/20 Lurasidone [Latuda] 80 mg PO HS 03/07/19 08/07/20 Benztropine Mesylate [Cogentin] 2 mg PO BID PRN 12/06/19 08/07/20 Ustekinumab [Stelara] 90 mg IM Q56D 12/06/19 08/07/20 Amphetamine [Adzenys Xr-Odt] 6.3 mg PO DAILY 05/17/20 08/07/20 Bisacodyl 5 mg PO BID PRN 05/17/20 08/07/20 Buprenorphine HCl [Belbuca] 300 mcg BUCCAL Q12H 05/17/20 08/07/20 Dicyclomine [Bentyl] 10 mg PO QID PRN 05/17/20 08/07/20 FLUoxetine HCL [PROzac Weekly] 90 mg PO WE 05/17/20 08/07/20 Fluticasone Nasal [place] [Flonase 1 spray EA NOSTRIL DAILY PRN 05/17/20 08/07/20 Nasal [place]] Loratadine [Claritin] 10 mg PO DAILY PRN 05/17/20 08/07/20 Metoclopramide HCl [Reglan] 10 mg PO Q6H PRN 05/17/20 08/07/20 Na Phos,M-B/Na Phos,Di-Ba [Fleet 133 ml RECTAL DAILY PRN 05/17/20 08/07/20 Adult] Omeprazole [PriLOSEC] 40 mg PO HS 05/17/20 08/07/20 Ondansetron [Zofran ODT] 4 mg PO Q8HR PRN 05/17/20 08/07/20 Vitamin C/Biotin [Hair, Skin and 2 tab PO HS 05/17/20 08/07/20 Nails] hydrOXYzine pamoate [Vistaril] 100 mg PO TID PRN 05/17/20 08/07/20 oxyCODONE HCL/ACETAMINOPHEN 1 tab PO TID PRN 05/17/20 08/07/20 [Percocet 7.5-325 mg] Apixaban [Eliquis] 5 mg PO BID 08/07/20 08/07/20 Gabapentin Solution 250mg/5ml 1,000 mg PO Q6H PRN 08/07/20 08/07/20 Allergies Allergy/AdvReac Type Severity Reaction Status Date / Time adalimumab [From Humira] Allergy RASH/NAUSEA/VOMITING/JOINT Verified 08/07/20 23:32 PAIN amoxicillin trihydrate Allergy Rash/Hives Verified 08/07/20 23:32 [From Augmentin] potassium clavulanate Allergy Rash/Hives Verified 08/07/20 23:32 [From Augmentin] Review of Systems ROS Statement: Those systems with pertinent positive or pertinent negative responses have been documented in the HPI. ROS Other: All systems not noted in ROS Statement are negative. Constitutional: Denies: fever, chills Respiratory: Denies: cough, dyspnea Cardiovascular: Denies: chest pain, palpitations, orthopnea, syncope Gastrointestinal: Denies: abdominal pain, vomiting, diarrhea Genitourinary: Denies: dysuria, hematuria Musculoskeletal: Denies: back pain Skin: Denies: rash Neurological: Denies: headache, weakness, numbness Past Medical History Past Medical History: No Reported History Additional Past Medical History / Comment(s): crohns, IBD, colitis dx of crohns at age 10. History of Any Multi-Drug Resistant Organisms: C-DIFF, MRSA Date of last positivie culture/infection: 2002, Jul 2019 cdiff MDRO Source:: Hip Past Surgical History: Bowel Resection, Cholecystectomy Additional Past Surgical History / Comment(s): wisdom teeth, bowel resection x 2 in 2017, sepsis after first surgery Past Anesthesia/Blood Transfusion Reactions: No Reported Reaction Past Psychological History: Anxiety, Bipolar, Depression, PTSD Smoking Status: Never smoker Past Alcohol Use History: None Reported Past Drug Use History: None Reported - Past Family History Mother Family Medical History: Cancer Father Family Medical History: No Reported History General Exam Limitations: no limitations General appearance: alert, in no apparent distress Head exam: Present: atraumatic, normocephalic Eye exam: Present: normal appearance. Absent: scleral icterus, conjunctival injection Neck exam: Present: normal inspection, full ROM. Absent: tenderness, lymphadenopathy Respiratory exam: Present: normal lung sounds bilaterally. Absent: respiratory distress, wheezes, rales, rhonchi, stridor, accessory muscle use Cardiovascular Exam: Present: regular rate, normal rhythm, normal heart sounds. Absent: systolic murmur, diastolic murmur, rubs, gallop Extremities exam: Present: normal inspection, normal capillary refill. Absent: pedal edema, calf tenderness Back exam: Present: normal inspection Skin exam: Present: warm, dry, intact, normal color. Absent: rash Course Vital Signs 08/07/20 22:30 Temperature 98.5 F Pulse Rate 100 Respiratory 20 Rate Blood Pressure 126/83 O2 Sat by Pulse 97 Oximetry Disposition Clinical Impression: Neck pain Disposition: HOME SELF-CARE Condition: Good Instructions (If sedation given, give patient instructions): Neck Pain (ED) Is patient prescribed a controlled substance at d/c from ED?: No Referrals: None,Stated [Primary Care Provider] - 1-2 days
--- NOTE | 2020-08-07 23:35 | CT ---
EXAMINATION TYPE: CT chest angio for PE DATE OF EXAM: 08/07/2020 COMPARISON: None HISTORY: R/O PE CT DLP: 251.80 mGycm Automated exposure control for dose reduction was used. CONTRAST: Performed with IV Contrast, patient injected with 50 mL of Isovue 370. There are 3-D post processed images. The lungs are clear of consolidation. There is no evidence of a pulmonary mass. There is no pleural e ffusion. Heart size is normal. There is no pericardial effusion. There is no mediastinal adenopathy. There are no hilar masses. There is normal contrast opacification of the pulmonary arteries. There are no filling defects. The t horacic spine is intact. There is no compression fracture. IMPRESSION: Negative exam. No evidence of pulmonary embolism.
[2020-08-07] MEDS ORDERED: HYDROcodone/APAP 5-325MG 1 EACH TAB PO STA (23:44)
--- NOTE | 2020-08-08 00:49 | US ---
EXAM: US Duplex Right Upper Extremity Veins CLINICAL HISTORY: ITS. REASON US Reason: possible thrombosis TECHNIQUE: Real-time duplex ultrasound scan of the right upper extremity veins integrating B-mode two-dimensional vascular structure, Doppler spectral analysis, color flow Doppler imaging and compression. COMPARISON: No relevant prior studies available. FINDINGS: Deep veins: Unremarkable. No DVT in the internal jugular, subclavian, axillary, or brachial veins. The veins demonstrate normal color flow, are normally compressible, with normal phasic flow and/or augmentation response. Superficial veins: Unremarkable. No thrombus in the visualized basilic and cephalic veins. IMPRESSION: No right arm venous thrombosis.
[2020-08-08 01:05] VITALS: BP 103/66; PULSE 86; RESP 16
== END 2020-08-08 01:05 | disposition home or self-care (01) ==
LOC: EC 22:27
DX: M54.2 Cervicalgia (principal); K50.90 Crohn's disease, unspecified, without complications; F41.9 Anxiety disorder, unspecified; F32.9 Major depressive disorder, single episode, unspecified; F43.10 Post-traumatic stress disorder, unspecified; Z79.899 Other long term (current) drug therapy; Z79.01 Long term (current) use of anticoagulants; Z79.3 Long term (current) use of hormonal contraceptives; Z88.0 Allergy status to penicillin; Z88.1 Allergy status to other antibiotic agents; Z88.8 Allergy status to other drugs, medicaments and biological substances; Z86.14 Personal history of Methicillin resistant Staphylococcus aureus infection
CPT/HCPCS: 93971; 71275; 99283; Q9967

== ENCOUNTER 2020-08-20 00:39 | Emergency (ER) | payer MEDICARE, OTHER ==
[2020-08-20] MEDS ORDERED: SODIUM CHLORIDE 0.9% 1,000 ML IV STA (01:19)
[2020-08-20] MEDS ORDERED: ONDANSETRON 4 MG/2 ML VIAL IVP STA (01:19)
[2020-08-20] MEDS ORDERED: PANTOPRAZOLE 40 MG/10 ML VIAL IVP STA (01:19)
[2020-08-20] MEDS ORDERED: HYDROmorphone 1 MG/ML 1 ML SYRINGE IVP STA (01:21)
--- NOTE | 2020-08-20 01:38 | ED ---
GI Bleed HPI - General Chief complaint: GI Bleed Stated complaint: Vomiting Blood Time Seen by Provider: 08/20/20 01:05 Source: patient Mode of arrival: wheelchair Limitations: no limitations - History of Present Illness Initial comments: Patient is a 25-year-old female with history of Crohn's, presenting to the emergency Department with complaints of possible GI bleed. Patient states she has been on eliquis for the last 3 weeks secondary to a blood clot from a PICC line in her right arm. Patient now has a MediPort. Patient states for the last 2 weeks she has been having blood in her vomit. Patient states she does have Crohn's and will sometimes gets nausea and vomiting. She does not normally have the blood in there. Patient states also for the last 3 days she has been having bowel movements of bright red and dark red blood in her stools. She states she has not been able to eat or drink, she has been doing TPN through her port. Patient states she is also been under more stress as she just recently lost her grandmother yesterday. Patient denies any chest pain, shortness of breath. She states her abdominal pain is mostly right-sided and is her normal amount of pain during flareups. She states she is currently nauseous. She states she does have Percocet that home for her pain however she has not been able to keep them down secondary to the vomiting. Patient has no further complaints at this time. Patient is afebrile upon arrival, pulse is 125, rest of vitals are normal. - Related Data Home Medications Medication Instructions Recorded Confirmed Medroxyprogesterone Acetate 150 mg IM Q90D 03/10/18 08/07/20 [Depo-Provera] Amitriptyline HCl 20 mg PO HS 04/11/18 08/07/20 Lurasidone [Latuda] 80 mg PO HS 03/07/19 08/07/20 Benztropine Mesylate [Cogentin] 2 mg PO BID PRN 12/06/19 08/07/20 Ustekinumab [Stelara] 90 mg IM Q56D 12/06/19 08/07/20 Amphetamine [Adzenys Xr-Odt] 6.3 mg PO DAILY 05/17/20 08/07/20 Bisacodyl 5 mg PO BID PRN 05/17/20 08/07/20 Buprenorphine HCl [Belbuca] 300 mcg BUCCAL Q12H 05/17/20 08/07/20 Dicyclomine [Bentyl] 10 mg PO QID PRN 05/17/20 08/07/20 FLUoxetine HCL [PROzac Weekly] 90 mg PO WE 05/17/20 08/07/20 Fluticasone Nasal [place] [Flonase 1 spray EA NOSTRIL DAILY PRN 05/17/20 08/07/20 Nasal [place]] Loratadine [Claritin] 10 mg PO DAILY PRN 05/17/20 08/07/20 Metoclopramide HCl [Reglan] 10 mg PO Q6H PRN 05/17/20 08/07/20 Na Phos,M-B/Na Phos,Di-Ba [Fleet 133 ml RECTAL DAILY PRN 05/17/20 08/07/20 Adult] Omeprazole [PriLOSEC] 40 mg PO HS 05/17/20 08/07/20 Ondansetron [Zofran ODT] 4 mg PO Q8HR PRN 05/17/20 08/07/20 Vitamin C/Biotin [Hair, Skin and 2 tab PO HS 05/17/20 08/07/20 Nails] hydrOXYzine pamoate [Vistaril] 100 mg PO TID PRN 05/17/20 08/07/20 oxyCODONE HCL/ACETAMINOPHEN 1 tab PO TID PRN 05/17/20 08/07/20 [Percocet 7.5-325 mg] Apixaban [Eliquis] 5 mg PO BID 08/07/20 08/07/20 Gabapentin Solution 250mg/5ml 1,000 mg PO Q6H PRN 08/07/20 08/07/20 Previous Rx's Medication Instructions Recorded Cephalexin [Keflex] 500 mg PO BID 5 Days #10 cap 08/20/20 Pantoprazole [Protonix] 40 mg PO DAILY 14 Days #14 08/20/20 tablet.dr Allergies Allergy/AdvReac Type Severity Reaction Status Date / Time adalimumab [From Humira] Allergy RASH/NAUSEA/VOMITING/JOINT Verified 08/20/20 00:48 PAIN amoxicillin trihydrate Allergy Rash/Hives Verified 08/20/20 00:48 [From Augmentin] potassium clavulanate Allergy Rash/Hives Verified 08/20/20 00:48 [From Augmentin] Review of Systems ROS Statement: Those systems with pertinent positive or pertinent negative responses have been documented in the HPI. ROS Other: All systems not noted in ROS Statement are negative. Past Medical History Past Medical History: No Reported History Additional Past Medical History / Comment(s): crohns, IBD, colitis dx of crohns at age 10. History of Any Multi-Drug Resistant Organisms: C-DIFF, MRSA Date of last positivie culture/infection: 2002, Jul 2019 cdiff MDRO Source:: Hip Past Surgical History: Bowel Resection, Cholecystectomy Additional Past Surgical History / Comment(s): wisdom teeth, bowel resection x 2 in 2017, sepsis after first surgery Past Anesthesia/Blood Transfusion Reactions: No Reported Reaction Past Psychological History: Anxiety, Bipolar, Depression, PTSD Smoking Status: Never smoker Past Alcohol Use History: None Reported Past Drug Use History: None Reported - Past Family History Mother Family Medical History: Cancer Father Family Medical History: No Reported History General Exam - General Exam Comments Initial Comments: GENERAL: Patient is well-developed and well-nourished. Patient is nontoxic and in no mild distress. HEAD: Atraumatic, normocephalic. EYES: Pupils equal round and reactive to light, extraocular movements intact, sclera anicteric, conjunctiva are normal. Eyelids were unremarkable. ENT: TMs normal, nares patent, oropharynx clear without exudates. Moist mucous membranes. NECK: Normal range of motion, supple without lymphadenopathy or JVD. LUNGS: Unlabored respirations. Breath sounds clear to auscultation bilaterally and equal. No wheezes rales or rhonchi. HEART: Regular rate and rhythm without murmurs, rubs or gallops. ABDOMEN: Tender to palpation of the right side of the abdomen. Soft, normoactive bowel sounds. No guarding, no rebound. No masses appreciated. : Deferred MUSCULOSKELETAL: Normal extremities with adequate strength and normal range of motion, no pitting or edema. No clubbing or cyanosis. NEUROLOGICAL: Patient is alert and oriented x 3. Motor and sensory are also intact. Cranial nerves II through XII grossly intact. Symmetrical smile. Normal speech, normal gait. PSYCH: Normal mood, normal affect. SKIN: Warm, Dry, normal turgor, no rashes or lesions noted. Limitations: no limitations Course Vital Signs 08/20/20 08/20/20 08/20/20 00:45 01:55 03:29 Temperature 98.9 F 98.3 F 98.2 F Pulse Rate 125 H 88 82 Respiratory 20 16 16 Rate Blood Pressure 122/81 111/73 118/61 O2 Sat by Pulse 98 97 97 Oximetry Medical Decision Making - Medical Decision Making Patient is a 25-year-old female, well-known to this ER, with history of Crohn's, presenting to the emergency Department with complaints of intermittent hematemisis as well as blood in her stool. She is currently on Eliquis secondary to blood clot in her arm. She currently has a MediPort. She did arrive tachycardia at 125, respiratory vitals were normal. She has generalized abdominal discomfort which is normal for her. She does take Percocet at home but states she is unable to keep them down secondary to the vomiting. Her labs are unremarkable, normal white count, normal lactic acid. Her urine does reveal evidence of a UTI, 75 WBCs and bacteria. A urine culture is pending, urine hCG is not detected. Patient received fluids, Protonix, pain control. I did give her dose of Keflex as well. Patient reports improvement in her symptoms. She has had no active rectal bleeding at this time. I discussed the patient she is to follow-up with her GI doctor. I will start her on Protonix as well as Keflex for her UTI. She is in agreement with this plan of care. She is stable for discharge. Return parameters were discussed with the patient she verbalized understanding. Case discussed with Dr. Leon. - Lab Data Result diagrams: 08/20/20 01:25 08/20/20 01:25 Lab Results 08/20/20 08/20/20 08/20/20 Range/Units 01:25 01:25 01:25 WBC 6.1 (3.8-10.6) k/uL RBC 3.85 (3.80-5.40) m/uL Hgb 12.0 (11.4-16.0) gm/dL Hct 34.8 (34.0-46.0) % MCV 90.3 (80.0-100.0) fL MCH 31.1 (25.0-35.0) pg MCHC 34.4 (31.0-37.0) g/dL RDW 13.1 (11.5-15.5) % Plt Count 193 (150-450) k/uL MPV 7.2 Neutrophils % 52 % Lymphocytes % 37 % Monocytes % 7 % Eosinophils % 1 % Basophils % 1 % Neutrophils # 3.2 (1.3-7.7) k/uL Lymphocytes # 2.2 (1.0-4.8) k/uL Monocytes # 0.4 (0-1.0) k/uL Eosinophils # 0.1 (0-0.7) k/uL Basophils # 0.1 (0-0.2) k/uL PT 10.9 (9.0-12.0) sec INR 1.1 (<1.2) APTT 26.2 (22.0-30.0) sec Sodium 137 (137-145) mmol/L Potassium 3.7 (3.5-5.1) mmol/L Chloride 106 (98-107) mmol/L Carbon Dioxide 26 (22-30) mmol/L Anion Gap 5 mmol/L BUN 18 H (7-17) mg/dL Creatinine 0.82 (0.52-1.04) mg/dL Est GFR (CKD-EPI)AfAm >90 (>60 ml/min/1.73 sqM) Est GFR (CKD-EPI)NonAf >90 (>60 ml/min/1.73 sqM) Glucose 74 (74-99) mg/dL Plasma Lactic Acid Rehan (0.7-2.0) mmol/L Calcium 9.1 (8.4-10.2) mg/dL Total Bilirubin 0.2 (0.2-1.3) mg/dL AST 21 (14-36) U/L ALT 13 (4-34) U/L Alkaline Phosphatase 47 (38-126) U/L Total Protein 6.9 (6.3-8.2) g/dL Albumin 3.8 (3.5-5.0) g/dL Urine Color Urine Appearance (Clear) Urine pH (5.0-8.0) Ur Specific [place] (1.001-1.035) Urine Protein (Negative) Urine Glucose (UA) (Negative) Urine Ketones (Negative) Urine Blood (Negative) Urine Nitrite (Negative) Urine Bilirubin (Negative) Urine Urobilinogen (<2.0) mg/dL Ur Leukocyte Esterase (Negative) Urine RBC (0-5) /hpf Urine WBC (0-5) /hpf Ur Squamous Epith Cells (0-4) /hpf Urine Bacteria (None) /hpf Hyaline Casts (0-2) /lpf Urine Mucus (None) /hpf Urine HCG, Qual (Not Detectd) Blood Type Blood Type Recheck Bld Type Recheck Status Antibody Screen Spec Expiration Date 08/20/20 08/20/20 08/20/20 Range/Units 01:25 01:30 02:30 WBC (3.8-10.6) k/uL RBC (3.80-5.40) m/uL Hgb (11.4-16.0) gm/dL Hct (34.0-46.0) % MCV (80.0-100.0) fL MCH (25.0-35.0) pg MCHC (31.0-37.0) g/dL RDW (11.5-15.5) % Plt Count (150-450) k/uL MPV Neutrophils % % Lymphocytes % % Monocytes % % Eosinophils % % Basophils % % Neutrophils # (1.3-7.7) k/uL Lymphocytes # (1.0-4.8) k/uL Monocytes # (0-1.0) k/uL Eosinophils # (0-0.7) k/uL Basophils # (0-0.2) k/uL PT (9.0-12.0) sec INR (<1.2) APTT (22.0-30.0) sec Sodium (137-145) mmol/L Potassium (3.5-5.1) mmol/L Chloride (98-107) mmol/L Carbon Dioxide (22-30) mmol/L Anion Gap mmol/L BUN (7-17) mg/dL Creatinine (0.52-1.04) mg/dL Est GFR (CKD-EPI)AfAm (>60 ml/min/1.73 sqM) Est GFR (CKD-EPI)NonAf (>60 ml/min/1.73 sqM) Glucose (74-99) mg/dL Plasma Lactic Acid Rehan 0.8 (0.7-2.0) mmol/L Calcium (8.4-10.2) mg/dL Total Bilirubin (0.2-1.3) mg/dL AST (14-36) U/L ALT (4-34) U/L Alkaline Phosphatase (38-126) U/L Total Protein (6.3-8.2) g/dL Albumin (3.5-5.0) g/dL Urine Color Urine Appearance (Clear) Urine pH (5.0-8.0) Ur Specific [place] (1.001-1.035) Urine Protein (Negative) Urine Glucose (UA) (Negative) Urine Ketones (Negative) Urine Blood (Negative) Urine Nitrite (Negative) Urine Bilirubin (Negative) Urine Urobilinogen (<2.0) mg/dL Ur Leukocyte Esterase (Negative) Urine RBC (0-5) /hpf Urine WBC (0-5) /hpf Ur Squamous Epith Cells (0-4) /hpf Urine Bacteria (None) /hpf Hyaline Casts (0-2) /lpf Urine Mucus (None) /hpf Urine HCG, Qual Not Detected (Not Detectd) Blood Type O Positive Blood Type Recheck O Pos Bld Type Recheck Status No Antibody Screen NEGATIVE Spec Expiration Date 08/23/2020232908/20/20 Range/Units 02:44 WBC (3.8-10.6) k/uL RBC (3.80-5.40) m/uL Hgb (11.4-16.0) gm/dL Hct (34.0-46.0) % MCV (80.0-100.0) fL MCH (25.0-35.0) pg MCHC (31.0-37.0) g/dL RDW (11.5-15.5) % Plt Count (150-450) k/uL MPV Neutrophils % % Lymphocytes % % Monocytes % % Eosinophils % % Basophils % % Neutrophils # (1.3-7.7) k/uL Lymphocytes # (1.0-4.8) k/uL Monocytes # (0-1.0) k/uL Eosinophils # (0-0.7) k/uL Basophils # (0-0.2) k/uL PT (9.0-12.0) sec INR (<1.2) APTT (22.0-30.0) sec Sodium (137-145) mmol/L Potassium (3.5-5.1) mmol/L Chloride (98-107) mmol/L Carbon Dioxide (22-30) mmol/L Anion Gap mmol/L BUN (7-17) mg/dL Creatinine (0.52-1.04) mg/dL Est GFR (CKD-EPI)AfAm (>60 ml/min/1.73 sqM) Est GFR (CKD-EPI)NonAf (>60 ml/min/1.73 sqM) Glucose (74-99) mg/dL Plasma Lactic Acid Rehan (0.7-2.0) mmol/L Calcium (8.4-10.2) mg/dL Total Bilirubin (0.2-1.3) mg/dL AST (14-36) U/L ALT (4-34) U/L Alkaline Phosphatase (38-126) U/L Total Protein (6.3-8.2) g/dL Albumin (3.5-5.0) g/dL Urine Color Yellow Urine Appearance Cloudy H (Clear) Urine pH 6.0 (5.0-8.0) Ur Specific [place] 1.016 (1.001-1.035) Urine Protein Negative (Negative) Urine Glucose (UA) Negative (Negative) Urine Ketones Negative (Negative) Urine Blood Negative (Negative) Urine Nitrite Negative (Negative) Urine Bilirubin Negative (Negative) Urine Urobilinogen <2.0 (<2.0) mg/dL Ur Leukocyte Esterase Large H (Negative) Urine RBC 2 (0-5) /hpf Urine WBC 75 H (0-5) /hpf Ur Squamous Epith Cells 9 H (0-4) /hpf Urine Bacteria Rare H (None) /hpf Hyaline Casts 1 (0-2) /lpf Urine Mucus Occasional H (None) /hpf Urine HCG, Qual (Not Detectd) Blood Type Blood Type Recheck Bld Type Recheck Status Antibody Screen Spec Expiration Date Disposition Clinical Impression: Nausea and vomiting, Abdominal pain, Crohn disease, UTI (urinary tract infection) Disposition: HOME SELF-CARE Condition: Stable Instructions (If sedation given, give patient instructions): Abdominal Pain (ED) Additional Instructions: Please return to the Emergency Department if symptoms worsen or any other concerns. Follow-up with your regular doctors. Take Protonix daily as discussed. Prescriptions: Cephalexin [Keflex] 500 mg PO BID 5 Days #10 cap Pantoprazole [Protonix] 40 mg PO DAILY 14 Days #14 tablet.dr Is patient prescribed a controlled substance at d/c from ED?: No Referrals: Charlotte Slade MD [Primary Care Provider] - 1-2 days
[2020-08-20 01:53] LABS: Basophils # (A) 0.1 k/uL (0-0.2); Basophils % (A) 1 %; Eosinophils # (A) 0.1 k/uL (0-0.7); Eosinophils % (A) 1 %; HCT 34.8 % (34.0-46.0); Lymphocytes # (A) 2.2 k/uL (1.0-4.8); Lymphocytes % (A) 37 %; MCH 31.1 pg (25.0-35.0); MCHC 34.4 g/dL (31.0-37.0); MCV 90.3 fL (80.0-100.0); Mean Platelet Volume 7.2; Monocytes # (A) 0.4 k/uL (0-1.0); Monocytes % (A) 7 %; Neutrophils # (A) 3.2 k/uL (1.3-7.7); Neutrophils % (A) 52 %; Platelet Count 193 k/uL (150-450); RBC 3.85 m/uL (3.80-5.40); RDW 13.1 % (11.5-15.5); WBC 6.1 k/uL (3.8-10.6)
[2020-08-20 02:01] LABS: INR 1.1 (<1.2); Partial Thromboplastin Time 26.2 sec (22.0-30.0); Prothrombin Time 10.9 sec (9.0-12.0)
[2020-08-20 02:04] LABS: ALT 13 U/L (4-34); AST 21 U/L (14-36); African American GFR (CKD) >90 (>60 ml/min/1.73 sqM); Albumin 3.8 g/dL (3.5-5.0); Alkaline Phosphatase 47 U/L (38-126); Anion Gap 5 mmol/L; Blood Urea Nitrogen 18 mg/dL (7-17); Calcium 9.1 mg/dL (8.4-10.2); Carbon Dioxide 26 mmol/L (22-30); Chloride 106 mmol/L (98-107); Glucose 74 mg/dL (74-99); Non-African American GFR(CKD) >90 (>60 ml/min/1.73 sqM); Potassium 3.7 mmol/L (3.5-5.1); Sodium 137 mmol/L (137-145); Total Bilirubin 0.2 mg/dL (0.2-1.3); Total Protein 6.9 g/dL (6.3-8.2)
[2020-08-20 02:33] VITALS: RESP 16
[2020-08-20] MEDS ORDERED: HYDROmorphone 0.5 MG/0.5 ML SYRINGE IVP STA (03:06)
[2020-08-20 03:15] LABS: Appearance,Urine Cloudy (Clear); Bacteria,Urine Rare /hpf; Bilirubin,Urine Negative (Negative); Blood,Urine Negative (Negative); Color,Urine Yellow; Glucose,Urine (UA) Negative (Negative); Hyaline Casts,Urine 1 /lpf (0-2); Ketones,Urine Negative (Negative); Leukocyte Esterase,Urine Large (Negative); Mucus,Urine Occasional /hpf; Nitrite,Urine Negative (Negative); Protein,Urine Negative (Negative); RBC,Urine 2 /hpf (0-5); Specific Gravity,Urine 1.016 (1.001-1.035); Squamous Epithelial Cell,Urine 9 /hpf (0-4); Urobilinogen,Urine <2.0 mg/dL (<2.0); WBC,Urine 75 /hpf (0-5)
[2020-08-20] MEDS ORDERED: CEPHALEXIN 500 MG CAP PO STA (03:21)
[2020-08-20 03:45] VITALS: BP 118/61; PULSE 82; TEMP 98.2
== END 2020-08-20 03:29 | disposition home or self-care (01) ==
LOC: EC 00:39
DX: K50.90 Crohn's disease, unspecified, without complications (principal); N39.0 Urinary tract infection, site not specified; Z32.02 Encounter for pregnancy test, result negative; F41.9 Anxiety disorder, unspecified; F31.9 Bipolar disorder, unspecified; Z79.01 Long term (current) use of anticoagulants; Z79.899 Other long term (current) drug therapy; Z88.8 Allergy status to other drugs, medicaments and biological substances; Z88.0 Allergy status to penicillin; Z88.1 Allergy status to other antibiotic agents; Z90.49 Acquired absence of other specified parts of digestive tract
CPT/HCPCS: 36415; 86900; 86901; 80053; 83605; 85025; 85610; 85730; 86850; 81001; 81025; 87086; 99284; 96374; 96375 ×2; 96376; 96361; J2405; J1170 ×2; C9113

== ENCOUNTER 2020-08-21 15:53 | Emergency (ER) | payer MEDICARE, OTHER ==
[2020-08-21] MEDS ORDERED: SODIUM CHLORIDE 0.9% 500 ML 500 ML IV STA (16:56)
[2020-08-21] MEDS ORDERED: ONDANSETRON 4 MG/2 ML VIAL IVP STA (16:56)
[2020-08-21] MEDS ORDERED: HYDROmorphone 1 MG/ML 1 ML SYRINGE IVP STA ×3 (16:56→20:22)
--- NOTE | 2020-08-21 17:08 | ED ---
Recheck HPI - General Chief Complaint: Recheck/Abnormal Lab/Rx Stated Complaint: port problems Time Seen by Provider: 08/21/20 16:16 Source: patient Mode of arrival: ambulatory Limitations: no limitations - History of Present Illness Initial Comments: 25-year-old female patient with past medical history significant for Crohn's disease presents to the emergency department today for evaluation of vomiting and abdominal pain. Patient states she is having pain to the right lower quadrant abdomen. States she has been having fevers at home as high as 101.7F. States she's been vomiting and unable to keep down food, fluid, or medication for the last 5 days. She has also been having increased GI bleeding, reporting bright red blood in her stool. Patient states that she does generally take Stalera, but her dosing has been off since a three week admission to the hospital. Patient denies any recent rash, cough, shortness of breath, chest pain, back pain, numbness, tingling, dizziness, weakness, hematuria, dysuria, urinary urgency, urinary frequency, headache, visual changes, or any other complaints. - Related Data Home Medications Medication Instructions Recorded Confirmed Medroxyprogesterone Acetate 150 mg IM Q90D 03/10/18 08/21/20 [Depo-Provera] Amitriptyline HCl 20 mg PO HS 04/11/18 08/21/20 Lurasidone [Latuda] 80 mg PO HS 03/07/19 08/21/20 Benztropine Mesylate [Cogentin] 2 mg PO BID PRN 12/06/19 08/21/20 Ustekinumab [Stelara] 90 mg IM Q56D 12/06/19 08/21/20 Amphetamine [Adzenys Xr-Odt] 6.3 mg PO DAILY 05/17/20 08/21/20 Bisacodyl 5 mg PO BID PRN 05/17/20 08/21/20 Buprenorphine HCl [Belbuca] 300 mcg BUCCAL Q12H 05/17/20 08/21/20 Dicyclomine [Bentyl] 10 mg PO QID PRN 05/17/20 08/21/20 FLUoxetine HCL [PROzac Weekly] 90 mg PO WE 05/17/20 08/21/20 Fluticasone Nasal [place] [Flonase 1 spray EA NOSTRIL DAILY PRN 05/17/20 08/21/20 Nasal [place]] Loratadine [Claritin] 10 mg PO DAILY PRN 05/17/20 08/21/20 Metoclopramide HCl [Reglan] 10 mg PO Q6H PRN 05/17/20 08/21/20 Na Phos,M-B/Na Phos,Di-Ba [Fleet 133 ml RECTAL DAILY PRN 05/17/20 08/21/20 Adult] Omeprazole [PriLOSEC] 40 mg PO HS 05/17/20 08/21/20 Ondansetron [Zofran ODT] 4 mg PO Q8HR PRN 05/17/20 08/21/20 Vitamin C/Biotin [Hair, Skin and 2 tab PO HS 05/17/20 08/21/20 Nails] hydrOXYzine pamoate [Vistaril] 100 mg PO TID PRN 05/17/20 08/21/20 oxyCODONE HCL/ACETAMINOPHEN 1 tab PO TID PRN 05/17/20 08/21/20 [Percocet 7.5-325 mg] Apixaban [Eliquis] 5 mg PO BID 08/07/20 08/21/20 Gabapentin Solution 250mg/5ml 1,000 mg PO Q6H PRN 08/07/20 08/21/20 Previous Rx's Medication Instructions Recorded Cephalexin [Keflex] 500 mg PO BID 5 Days #10 cap 08/20/20 Pantoprazole [Protonix] 40 mg PO DAILY 14 Days #14 08/20/20 tablet.dr Allergies Allergy/AdvReac Type Severity Reaction Status Date / Time adalimumab [From Humira] Allergy RASH/NAUSEA/VOMITING/JOINT Verified 08/21/20 17:25 PAIN amoxicillin trihydrate Allergy Rash/Hives Verified 08/21/20 17:25 [From Augmentin] potassium clavulanate Allergy Rash/Hives Verified 08/21/20 17:25 [From Augmentin] Review of Systems ROS Statement: Those systems with pertinent positive or pertinent negative responses have been documented in the HPI. ROS Other: All systems not noted in ROS Statement are negative. Past Medical History Past Medical History: No Reported History Additional Past Medical History / Comment(s): crohns, IBD, colitis dx of crohns at age 10. History of Any Multi-Drug Resistant Organisms: C-DIFF, MRSA Date of last positivie culture/infection: 2002, Jul 2019 cdiff MDRO Source:: Hip Past Surgical History: Bowel Resection, Cholecystectomy Additional Past Surgical History / Comment(s): wisdom teeth, bowel resection x 2 in 2017, sepsis after first surgery Past Anesthesia/Blood Transfusion Reactions: No Reported Reaction Past Psychological History: Anxiety, Bipolar, Depression, PTSD Smoking Status: Never smoker Past Alcohol Use History: None Reported Past Drug Use History: None Reported - Past Family History Mother Family Medical History: Cancer Father Family Medical History: No Reported History General Exam Limitations: no limitations General appearance: alert, in no apparent distress, other (Physical well- developed, well-nourished adult female patient in no acute distress. Vital sign s upon presentation to 98.0F, pulse 106, respirations 16, blood pressure 117/69, pulse ox 100% on room air.) Respiratory exam: Present: normal lung sounds bilaterally. Absent: respiratory distress, wheezes, rales, rhonchi, stridor Cardiovascular Exam: Present: regular rate, normal rhythm, normal heart sounds. Absent: systolic murmur, diastolic murmur, rubs, gallop, clicks GI/Abdominal exam: Present: soft, tenderness (Right lower quadrant), normal bowel sounds. Absent: distended, guarding, rebound, rigid Neurological exam: Present: alert, oriented X3, CN II-XII intact Psychiatric exam: Present: normal affect, normal mood Skin exam: Present: warm, dry, intact, normal color. Absent: rash Course Vital Signs 08/21/20 08/21/20 16:01 18:58 Temperature 98.0 F Pulse Rate 106 H 88 Respiratory 16 18 Rate Blood Pressure 117/69 111/78 O2 Sat by Pulse 100 100 Oximetry Medical Decision Making - Medical Decision Making 35-year-old female patient with past medical history significant for Crohn's disease generally maintained on Stalera, presents to the emergency department today for evaluation of increased right lower quadrant pain, GI bleed, and problems with her Mediport. Physical examination did reveal right lower rosa drant tenderness. Labs reviewed and revealed normal hemoglobin. No other abnormal labs. No imaging was performed as patient has had multiple CT scans. She did give IV pain meds and nausea medication. Plan was to admit to the hospital the patient does see GI specialty actually [facility] and requested to be transferred there has not for her Mediport was placed also. I did discuss the case with Dr. Appiah covering for Dr. Briscoe who will see the patient when admitted. Dr. Ross is accepting to their emergency department. - Lab Data Result diagrams: 08/21/20 17:23 08/21/20 17:23 Lab Results 08/21/20 08/21/20 08/21/20 Range/Units 17:23 17:23 17:23 WBC 3.4 L (3.8-10.6) k/uL RBC 4.26 (3.80-5.40) m/uL Hgb 13.3 (11.4-16.0) gm/dL Hct 38.9 (34.0-46.0) % MCV 91.4 (80.0-100.0) fL MCH 31.2 (25.0-35.0) pg MCHC 34.1 (31.0-37.0) g/dL RDW 12.9 (11.5-15.5) % Plt Count 184 (150-450) k/uL MPV 7.1 Neutrophils % 54 % Lymphocytes % 37 % Monocytes % 5 % Eosinophils % 1 % Basophils % 1 % Neutrophils # 1.8 (1.3-7.7) k/uL Lymphocytes # 1.3 (1.0-4.8) k/uL Monocytes # 0.2 (0-1.0) k/uL Eosinophils # 0.0 (0-0.7) k/uL Basophils # 0.0 (0-0.2) k/uL PT (9.0-12.0) sec INR (<1.2) APTT (22.0-30.0) sec Sodium 138 (137-145) mmol/L Potassium 4.5 (3.5-5.1) mmol/L Chloride 108 H (98-107) mmol/L Carbon Dioxide 24 (22-30) mmol/L Anion Gap 6 mmol/L BUN 16 (7-17) mg/dL Creatinine 0.71 (0.52-1.04) mg/dL Est GFR (CKD-EPI)AfAm >90 (>60 ml/min/1.73 sqM) Est GFR (CKD-EPI)NonAf >90 (>60 ml/min/1.73 sqM) Glucose 87 (74-99) mg/dL Plasma Lactic Acid Rehan 1.2 (0.7-2.0) mmol/L Calcium 9.1 (8.4-10.2) mg/dL Total Bilirubin 0.3 (0.2-1.3) mg/dL AST 20 (14-36) U/L ALT 13 (4-34) U/L Alkaline Phosphatase 53 (38-126) U/L Total Protein 7.4 (6.3-8.2) g/dL Albumin 4.1 (3.5-5.0) g/dL Lipase 46 (23-300) U/L Urine Color Urine Appearance (Clear) Urine pH (5.0-8.0) Ur Specific [place] (1.001-1.035) Urine Protein (Negative) Urine Glucose (UA) (Negative) Urine Ketones (Negative) Urine Blood (Negative) Urine Nitrite (Negative) Urine Bilirubin (Negative) Urine Urobilinogen (<2.0) mg/dL Ur Leukocyte Esterase (Negative) 08/21/20 08/21/20 Range/Units 17:58 18:29 WBC (3.8-10.6) k/uL RBC (3.80-5.40) m/uL Hgb (11.4-16.0) gm/dL Hct (34.0-46.0) % MCV (80.0-100.0) fL MCH (25.0-35.0) pg MCHC (31.0-37.0) g/dL RDW (11.5-15.5) % Plt Count (150-450) k/uL MPV Neutrophils % % Lymphocytes % % Monocytes % % Eosinophils % % Basophils % % Neutrophils # (1.3-7.7) k/uL Lymphocytes # (1.0-4.8) k/uL Monocytes # (0-1.0) k/uL Eosinophils # (0-0.7) k/uL Basophils # (0-0.2) k/uL PT 10.2 (9.0-12.0) sec INR 1.0 (<1.2) APTT 25.3 (22.0-30.0) sec Sodium (137-145) mmol/L Potassium (3.5-5.1) mmol/L Chloride (98-107) mmol/L Carbon Dioxide (22-30) mmol/L Anion Gap mmol/L BUN (7-17) mg/dL Creatinine (0.52-1.04) mg/dL Est GFR (CKD-EPI)AfAm (>60 ml/min/1.73 sqM) Est GFR (CKD-EPI)NonAf (>60 ml/min/1.73 sqM) Glucose (74-99) mg/dL Plasma Lactic Acid Rehan (0.7-2.0) mmol/L Calcium (8.4-10.2) mg/dL Total Bilirubin (0.2-1.3) mg/dL AST (14-36) U/L ALT (4-34) U/L Alkaline Phosphatase (38-126) U/L Total Protein (6.3-8.2) g/dL Albumin (3.5-5.0) g/dL Lipase (23-300) U/L Urine Color Light Yellow Urine Appearance Clear (Clear) Urine pH 7.0 (5.0-8.0) Ur Specific [place] 1.008 (1.001-1.035) Urine Protein Negative (Negative) Urine Glucose (UA) Negative (Negative) Urine Ketones Negative (Negative) Urine Blood Negative (Negative) Urine Nitrite Negative (Negative) Urine Bilirubin Negative (Negative) Urine Urobilinogen <2.0 (<2.0) mg/dL Ur Leukocyte Esterase Negative (Negative) Disposition Clinical Impression: Abdominal pain, GI bleed Disposition: OTHER INSTITUTION NOT DEFINED Condition: Serious Referrals: Charlotte Slade MD [Primary Care Provider] - 1-2 days - Out of Hospital Transfer - Req. Specs Out of Hospital Transfer - Requested Specifics: Other Emergency Center ([facility]
[2020-08-21 17:38] LABS: Basophils % (A) 1 %; Eosinophils % (A) 1 %; HCT 38.9 % (34.0-46.0); HGB 13.3 gm/dL (11.4-16.0); Lymphocytes # (A) 1.3 k/uL (1.0-4.8); Lymphocytes % (A) 37 %; MCH 31.2 pg (25.0-35.0); MCHC 34.1 g/dL (31.0-37.0); MCV 91.4 fL (80.0-100.0); Mean Platelet Volume 7.1; Monocytes # (A) 0.2 k/uL (0-1.0); Monocytes % (A) 5 %; Neutrophils # (A) 1.8 k/uL (1.3-7.7); Neutrophils % (A) 54 %; Platelet Count 184 k/uL (150-450); RBC 4.26 m/uL (3.80-5.40); RDW 12.9 % (11.5-15.5); WBC 3.4 k/uL (3.8-10.6)
[2020-08-21 17:49] LABS: ALT 13 U/L (4-34); AST 20 U/L (14-36); African American GFR (CKD) >90 (>60 ml/min/1.73 sqM); Albumin 4.1 g/dL (3.5-5.0); Alkaline Phosphatase 53 U/L (38-126); Anion Gap 6 mmol/L; Blood Urea Nitrogen 16 mg/dL (7-17); Calcium 9.1 mg/dL (8.4-10.2); Carbon Dioxide 24 mmol/L (22-30); Chloride 108 mmol/L (98-107); Glucose 87 mg/dL (74-99); Lipase 46 U/L (23-300); Non-African American GFR(CKD) >90 (>60 ml/min/1.73 sqM); Potassium 4.5 mmol/L (3.5-5.1); Sodium 138 mmol/L (137-145); Total Bilirubin 0.3 mg/dL (0.2-1.3); Total Protein 7.4 g/dL (6.3-8.2)
[2020-08-21 18:39] LABS: Partial Thromboplastin Time 25.3 sec (22.0-30.0); Prothrombin Time 10.2 sec (9.0-12.0)
[2020-08-21 18:52] LABS: Appearance,Urine Clear (Clear); Bilirubin,Urine Negative (Negative); Blood,Urine Negative (Negative); Color,Urine Light Yellow; Glucose,Urine (UA) Negative (Negative); Ketones,Urine Negative (Negative); Leukocyte Esterase,Urine Negative (Negative); Nitrite,Urine Negative (Negative); Protein,Urine Negative (Negative); Specific Gravity,Urine 1.008 (1.001-1.035); Urobilinogen,Urine <2.0 mg/dL (<2.0)
[2020-08-21 20:24] VITALS: BP 113/76; PULSE 76; TEMP 98.2
[2020-08-21 21:35] VITALS: RESP 18
== END 2020-08-21 21:50 | disposition other institution (70) ==
LOC: EC 15:53
DX: K92.2 Gastrointestinal hemorrhage, unspecified (principal); R10.31 Right lower quadrant pain; F41.9 Anxiety disorder, unspecified; F31.9 Bipolar disorder, unspecified; F43.10 Post-traumatic stress disorder, unspecified; Z79.899 Other long term (current) drug therapy; Z88.0 Allergy status to penicillin; Z88.1 Allergy status to other antibiotic agents; Z88.8 Allergy status to other drugs, medicaments and biological substances; Z86.14 Personal history of Methicillin resistant Staphylococcus aureus infection; Z90.49 Acquired absence of other specified parts of digestive tract
CPT/HCPCS: 36415; 80053; 83605; 83690; 85025; 85610; 85730; 81003; 99284; 96374; 96375; 96376 ×2; 96361; J2405; J1170

== ENCOUNTER 2020-09-19 19:23 | Emergency (ER) | payer MEDICARE, OTHER ==
[2020-09-19] MEDS ORDERED: METOCLOPRAMIDE 5 MG/ML 2 ML VIAL IVP STA (19:55)
[2020-09-19] MEDS ORDERED: HYDROmorphone 1 MG/ML 1 ML SYRINGE IVP STA (19:55)
[2020-09-19] MEDS ORDERED: PANTOPRAZOLE 40 MG/10 ML VIAL IVP STA (19:55)
[2020-09-19] MEDS ORDERED: SODIUM CHLORIDE 0.9% 1,000 ML IV STA (19:55)
--- NOTE | 2020-09-19 20:07 | ED ---
General Adult HPI - General Chief complaint: Chest Pain Stated complaint: Chest pain,SOB Time Seen by Provider: 09/19/20 19:34 Source: patient, family Mode of arrival: wheelchair Limitations: no limitations - History of Present Illness Initial comments: Patient is a 25-year-old female, history of Crohn's, presenting to the emergency Department with complaints of chest pressure, epigastric pain as well as nausea and vomiting 2 days. Patient currently receives treatment with Stelara for Chron's, currently has a port in the right upper chest. Patient states she has been nauseous and vomiting and unable to keep her medicines down. Patient is on eliquis for a previous blood clot in her arm. She is also currently on doxycycline for a skin infection around her port, she is currently on day 5 of this. Patient states she does have a history of sepsis and wants to make sure she does not have any other source of infection as well as one to get this chest pain investigated as well. She denies history of heart disease. She denies history of having a PE. She states she is having abdominal pain but that is normal with her Crohn's disease. She denies any dysuria. She denies being this time. She states she did take her regular pain medicine, Percocet this morning but feels like she threw it right back up. She did take Zofran abo ut 4 hours ago without relief of her symptoms. She denies any fevers today but states she has been having intermittent ones at home. She has no further complaints at this time. Upon arrival to the ER, her vital signs are stable. - Related Data Home Medications Medication Instructions Recorded Confirmed Medroxyprogesterone Acetate 150 mg IM Q90D 03/10/18 08/21/20 [Depo-Provera] Amitriptyline HCl 20 mg PO HS 04/11/18 08/21/20 Lurasidone [Latuda] 80 mg PO HS 03/07/19 08/21/20 Benztropine Mesylate [Cogentin] 2 mg PO BID PRN 12/06/19 08/21/20 Ustekinumab [Stelara] 90 mg IM Q56D 12/06/19 08/21/20 Amphetamine [Adzenys Xr-Odt] 6.3 mg PO DAILY 05/17/20 08/21/20 Bisacodyl 5 mg PO BID PRN 05/17/20 08/21/20 Buprenorphine HCl [Belbuca] 300 mcg BUCCAL Q12H 05/17/20 08/21/20 Dicyclomine [Bentyl] 10 mg PO QID PRN 05/17/20 08/21/20 FLUoxetine HCL [PROzac Weekly] 90 mg PO WE 05/17/20 08/21/20 Fluticasone Nasal [place] [Flonase 1 spray EA NOSTRIL DAILY PRN 05/17/20 08/21/20 Nasal [place]] Loratadine [Claritin] 10 mg PO DAILY PRN 05/17/20 08/21/20 Metoclopramide HCl [Reglan] 10 mg PO Q6H PRN 05/17/20 08/21/20 Na Phos,M-B/Na Phos,Di-Ba [Fleet 133 ml RECTAL DAILY PRN 05/17/20 08/21/20 Adult] Omeprazole [PriLOSEC] 40 mg PO HS 05/17/20 08/21/20 Ondansetron [Zofran ODT] 4 mg PO Q8HR PRN 05/17/20 08/21/20 Vitamin C/Biotin [Hair, Skin and 2 tab PO HS 05/17/20 08/21/20 Nails] hydrOXYzine pamoate [Vistaril] 100 mg PO TID PRN 05/17/20 08/21/20 oxyCODONE HCL/ACETAMINOPHEN 1 tab PO TID PRN 05/17/20 08/21/20 [Percocet 7.5-325 mg] Apixaban [Eliquis] 5 mg PO BID 08/07/20 08/21/20 Gabapentin Solution 250mg/5ml 1,000 mg PO Q6H PRN 08/07/20 08/21/20 Previous Rx's Medication Instructions Recorded Cephalexin [Keflex] 500 mg PO BID 5 Days #10 cap 08/20/20 Pantoprazole [Protonix] 40 mg PO DAILY 14 Days #14 08/20/20 tablet. Metoclopramide [Reglan] 10 mg PO TID PRN #15 tab 09/19/20 Allergies Allergy/AdvReac Type Severity Reaction Status Date / Time adalimumab [From Humira] Allergy RASH/NAUSEA/VOMITING/JOINT Verified 09/19/20 19:31 PAIN amoxicillin trihydrate Allergy Rash/Hives Verified 09/19/20 19:31 [From Augmentin] potassium clavulanate Allergy Rash/Hives Verified 09/19/20 19:31 [From Augmentin] Review of Systems ROS Statement: Those systems with pertinent positive or pertinent negative responses have been documented in the HPI. ROS Other: All systems not noted in ROS Statement are negative. Past Medical History Past Medical History: No Reported History Additional Past Medical History / Comment(s): crohns, IBD, colitis dx of crohns at age 10. History of Any Multi-Drug Resistant Organisms: C-DIFF, MRSA Date of last positivie culture/infection: 2002, Jul 2019 cdiff MDRO Source:: Hip Past Surgical History: Bowel Resection, Cholecystectomy Additional Past Surgical History / Comment(s): wisdom teeth, bowel resection x 2 in 2017, sepsis after first surgery Past Anesthesia/Blood Transfusion Reactions: No Reported Reaction Past Psychological History: Anxiety, Bipolar, Depression, PTSD Smoking Status: Never smoker Past Alcohol Use History: None Reported Past Drug Use History: None Reported - Past Family History Mother Family Medical History: Cancer Father Family Medical History: No Reported History General Exam - General Exam Comments Initial Comments: GENERAL: Patient is well-developed and well-nourished. Patient is nontoxic and in mild distress. HEAD: Atraumatic, normocephalic. EYES: Pupils equal round and reactive to light, extraocular movements intact, sclera anicteric, conjunctiva are normal. Eyelids were unremarkable. ENT: TMs normal, nares patent, oropharynx clear without exudates. Moist mucous membranes. NECK: Normal range of motion, supple without lymphadenopathy or JVD. LUNGS: Unlabored respirations. Breath sounds clear to auscultation bilaterally and equal. No wheezes rales or rhonchi. HEART: Regular rate and rhythm without murmurs, rubs or gallops. ABDOMEN: Generalized abdominal tenderness on palpation, no specific area pain. Soft, normoactive bowel sounds. No guarding, no rebound. No masses appreciated. : Deferred MUSCULOSKELETAL: Normal extremities with adequate strength and normal range of motion, no pitting or edema. No clubbing or cyanosis. NEUROLOGICAL: Patient is alert and oriented x 3. Motor and sensory are also intact. Cranial nerves II through XII grossly intact. Symmetrical smile. Normal speech, normal gait. PSYCH: Normal mood, normal affect. SKIN: Warm, Dry, normal turgor, no rashes or lesions noted. Limitations: no limitations Course Vital Signs 09/19/20 09/19/20 19:29 21:01 Temperature 98.9 F Pulse Rate 100 78 Respiratory 20 20 Rate Blood Pressure 116/63 104/67 O2 Sat by Pulse 99 99 Oximetry EKG Findings - EKG Comments: EKG Findings:: Sinus tach with occasional PVCs, no signs of an acute process. Ventricular rate 105, MI interval 148, QT 360. Similar to previous EKG on 06/29/2019. Medical Decision Making - Medical Decision Making Patient is a 25-year-old female with history of Crohn's, presenting with chest pain, nausea and vomiting, epigastric pain has been increasing over the past 1-2 days. Her vital signs are stable upon arrival. EKG shows no acute process. Chest x-ray is clear. Labs are unremarkable, normal d-dimer, normal troponin. White count hemoglobin are stable. Urine shows no evidence of infection. Patient was given fluids, Protonix and pain control. She reports improvement in her symptoms. On reexamination she is sitting up comfortably playing on her phone. I discussed these findings with the patient. She is stable for discharge. [facility] as she states she is running low on this. She can follow-up with her regular doctor. I believe her chest pain is related to her nausea and vomiting. Patient is in agreement with this plan of care. Return parameters were discussed with the patient she verbalized understanding. Case discussed with Dr. Banks. - Lab Data Result diagrams: 09/19/20 19:57 09/19/20 19:57 Lab Results 09/19/20 09/19/20 09/19/20 Range/Units 19:57 19:57 19:57 WBC 7.6 (3.8-10.6) k/uL RBC 4.56 (3.80-5.40) m/uL Hgb 13.8 (11.4-16.0) gm/dL Hct 40.1 (34.0-46.0) % MCV 87.9 (80.0-100.0) fL MCH 30.4 (25.0-35.0) pg MCHC 34.5 (31.0-37.0) g/dL RDW 12.5 (11.5-15.5) % Plt Count 203 (150-450) k/uL MPV 6.9 Neutrophils % 50 % Lymphocytes % 41 % Monocytes % 5 % Eosinophils % 1 % Basophils % 1 % Neutrophils # 3.8 (1.3-7.7) k/uL Lymphocytes # 3.1 (1.0-4.8) k/uL Monocytes # 0.4 (0-1.0) k/uL Eosinophils # 0.1 (0-0.7) k/uL Basophils # 0.1 (0-0.2) k/uL PT 10.7 (9.0-12.0) sec INR 1.0 (<1.2) APTT 25.0 (22.0-30.0) sec D-Dimer (<0.60) mg/L FEU Sodium 139 (137-145) mmol/L Potassium 3.4 L (3.5-5.1) mmol/L Chloride 107 (98-107) mmol/L Carbon Dioxide 22 (22-30) mmol/L Anion Gap 10 mmol/L BUN 7 (7-17) mg/dL Creatinine 0.76 (0.52-1.04) mg/dL Est GFR (CKD-EPI)AfAm >90 (>60 ml/min/1.73 sqM) Est GFR (CKD-EPI)NonAf >90 (>60 ml/min/1.73 sqM) Glucose 86 (74-99) mg/dL Plasma Lactic Acid Rehan (0.7-2.0) mmol/L Calcium 9.6 (8.4-10.2) mg/dL Total Bilirubin 0.4 (0.2-1.3) mg/dL AST 20 (14-36) U/L ALT 12 (4-34) U/L Alkaline Phosphatase 70 (38-126) U/L Troponin I (0.000-0.034) ng/mL Total Protein 8.1 (6.3-8.2) g/dL Albumin 4.6 (3.5-5.0) g/dL Lipase 47 (23-300) U/L Urine Color Urine Appearance (Clear) Urine pH (5.0-8.0) Ur Specific [place] (1.001-1.035) Urine Protein (Negative) Urine Glucose (UA) (Negative) Urine Ketones (Negative) Urine Blood (Negative) Urine Nitrite (Negative) Urine Bilirubin (Negative) Urine Urobilinogen (<2.0) mg/dL Ur Leukocyte Esterase (Negative) Urine RBC (0-5) /hpf Urine WBC (0-5) /hpf Ur Squamous Epith Cells (0-4) /hpf Urine Mucus (None) /hpf Urine HCG, Qual (Not Detectd) 09/19/20 09/19/20 09/19/20 Range/Units 19:57 19:57 19:57 WBC (3.8-10.6) k/uL RBC (3.80-5.40) m/uL Hgb (11.4-16.0) gm/dL Hct (34.0-46.0) % MCV (80.0-100.0) fL MCH (25.0-35.0) pg MCHC (31.0-37.0) g/dL RDW (11.5-15.5) % Plt Count (150-450) k/uL MPV Neutrophils % % Lymphocytes % % Monocytes % % Eosinophils % % Basophils % % Neutrophils # (1.3-7.7) k/uL Lymphocytes # (1.0-4.8) k/uL Monocytes # (0-1.0) k/uL Eosinophils # (0-0.7) k/uL Basophils # (0-0.2) k/uL PT (9.0-12.0) sec INR (<1.2) APTT (22.0-30.0) sec D-Dimer 0.27 (<0.60) mg/L FEU Sodium (137-145) mmol/L Potassium (3.5-5.1) mmol/L Chloride (98-107) mmol/L Carbon Dioxide (22-30) mmol/L Anion Gap mmol/L BUN (7-17) mg/dL Creatinine (0.52-1.04) mg/dL Est GFR (CKD-EPI)AfAm (>60 ml/min/1.73 sqM) Est GFR (CKD-EPI)NonAf (>60 ml/min/1.73 sqM) Glucose (74-99) mg/dL Plasma Lactic Acid Rehan 1.0 (0.7-2.0) mmol/L Calcium (8.4-10.2) mg/dL Total Bilirubin (0.2-1.3) mg/dL AST (14-36) U/L ALT (4-34) U/L Alkaline Phosphatase (38-126) U/L Troponin I <0.012 (0.000-0.034) ng/mL Total Protein (6.3-8.2) g/dL Albumin (3.5-5.0) g/dL Lipase (23-300) U/L Urine Color Urine Appearance (Clear) Urine pH (5.0-8.0) Ur Specific [place] (1.001-1.035) Urine Protein (Negative) Urine Glucose (UA) (Negative) Urine Ketones (Negative) Urine Blood (Negative) Urine Nitrite (Negative) Urine Bilirubin (Negative) Urine Urobilinogen (<2.0) mg/dL Ur Leukocyte Esterase (Negative) Urine RBC (0-5) /hpf Urine WBC (0-5) /hpf Ur Squamous Epith Cells (0-4) /hpf Urine Mucus (None) /hpf Urine HCG, Qual (Not Detectd) 09/19/20 09/19/20 Range/Units 19:59 19:59 WBC (3.8-10.6) k/uL RBC (3.80-5.40) m/uL Hgb (11.4-16.0) gm/dL Hct (34.0-46.0) % MCV (80.0-100.0) fL MCH (25.0-35.0) pg MCHC (31.0-37.0) g/dL RDW (11.5-15.5) % Plt Count (150-450) k/uL MPV Neutrophils % % Lymphocytes % % Monocytes % % Eosinophils % % Basophils % % Neutrophils # (1.3-7.7) k/uL Lymphocytes # (1.0-4.8) k/uL Monocytes # (0-1.0) k/uL Eosinophils # (0-0.7) k/uL Basophils # (0-0.2) k/uL PT (9.0-12.0) sec INR (<1.2) APTT (22.0-30.0) sec D-Dimer (<0.60) mg/L FEU Sodium (137-145) mmol/L Potassium (3.5-5.1) mmol/L Chloride (98-107) mmol/L Carbon Dioxide (22-30) mmol/L Anion Gap mmol/L BUN (7-17) mg/dL Creatinine (0.52-1.04) mg/dL Est GFR (CKD-EPI)AfAm (>60 ml/min/1.73 sqM) Est GFR (CKD-EPI)NonAf (>60 ml/min/1.73 sqM) Glucose (74-99) mg/dL Plasma Lactic Acid Rehan (0.7-2.0) mmol/L Calcium (8.4-10.2) mg/dL Total Bilirubin (0.2-1.3) mg/dL AST (14-36) U/L ALT (4-34) U/L Alkaline Phosphatase (38-126) U/L Troponin I (0.000-0.034) ng/mL Total Protein (6.3-8.2) g/dL Albumin (3.5-5.0) g/dL Lipase (23-300) U/L Urine Color Yellow Urine Appearance Cloudy H (Clear) Urine pH 5.5 (5.0-8.0) Ur Specific [place] 1.031 (1.001-1.035) Urine Protein 1+ H (Negative) Urine Glucose (UA) Negative (Negative) Urine Ketones Negative (Negative) Urine Blood Negative (Negative) Urine Nitrite Negative (Negative) Urine Bilirubin Negative (Negative) Urine Urobilinogen <2.0 (<2.0) mg/dL Ur Leukocyte Esterase Moderate H (Negative) Urine RBC 1 (0-5) /hpf Urine WBC 2 (0-5) /hpf Ur Squamous Epith Cells 3 (0-4) /hpf Urine Mucus Many H (None) /hpf Urine HCG, Qual Not Detected (Not Detectd) Disposition Clinical Impression: Nausea and vomiting, Atypical chest pain, Abdominal pain Disposition: HOME SELF-CARE Condition: Stable Instructions (If sedation given, give patient instructions): Acute Nausea and Vomiting (ED) Additional Instructions: Please return to the Emergency Department if symptoms worsen or any other concer ns. Continue to increase fluid intake, take medications for additional nausea and vomiting as discussed. Follow up with your regular doctor. Prescriptions: Metoclopramide [Reglan] 10 mg PO TID PRN #15 tab PRN Reason: GERD Is patient prescribed a controlled substance at d/c from ED?: No Referrals: Kindsvater,Charlotte, MD [Primary Care Provider] - 1-2 days
[2020-09-19 20:13] LABS: Basophils # (A) 0.1 k/uL (0-0.2); Basophils % (A) 1 %; Eosinophils # (A) 0.1 k/uL (0-0.7); Eosinophils % (A) 1 %; HCT 40.1 % (34.0-46.0); HGB 13.8 gm/dL (11.4-16.0); Lymphocytes # (A) 3.1 k/uL (1.0-4.8); Lymphocytes % (A) 41 %; MCH 30.4 pg (25.0-35.0); MCHC 34.5 g/dL (31.0-37.0); MCV 87.9 fL (80.0-100.0); Mean Platelet Volume 6.9; Monocytes # (A) 0.4 k/uL (0-1.0); Monocytes % (A) 5 %; Neutrophils # (A) 3.8 k/uL (1.3-7.7); Neutrophils % (A) 50 %; Platelet Count 203 k/uL (150-450); RBC 4.56 m/uL (3.80-5.40); RDW 12.5 % (11.5-15.5); WBC 7.6 k/uL (3.8-10.6)
--- NOTE | 2020-09-19 20:18 | XR ---
EXAMINATION TYPE: XR chest 2V DATE OF EXAM: 09/19/2020 COMPARISON: 06/29/2019 HISTORY: Chest pain for 2 weeks TECHNIQUE: FINDINGS: Heart and mediastinum are normal. Lungs are clear. Diaphragm is normal. Bony thorax appears normal. There is right-sided central venous catheter with tip in the superior vena cava. IMPRESSION: Normal chest. No change.
[2020-09-19 20:23] LABS: ALT 12 U/L (4-34); AST 20 U/L (14-36); African American GFR (CKD) >90 (>60 ml/min/1.73 sqM); Albumin 4.6 g/dL (3.5-5.0); Alkaline Phosphatase 70 U/L (38-126); Anion Gap 10 mmol/L; Blood Urea Nitrogen 7 mg/dL (7-17); Calcium 9.6 mg/dL (8.4-10.2); Carbon Dioxide 22 mmol/L (22-30); Chloride 107 mmol/L (98-107); Glucose 86 mg/dL (74-99); Lipase 47 U/L (23-300); Non-African American GFR(CKD) >90 (>60 ml/min/1.73 sqM); Potassium 3.4 mmol/L (3.5-5.1); Sodium 139 mmol/L (137-145); Total Bilirubin 0.4 mg/dL (0.2-1.3); Total Protein 8.1 g/dL (6.3-8.2)
[2020-09-19 20:33] LABS: Appearance,Urine Cloudy (Clear); Bilirubin,Urine Negative (Negative); Blood,Urine Negative (Negative); Color,Urine Yellow; Glucose,Urine (UA) Negative (Negative); Ketones,Urine Negative (Negative); Leukocyte Esterase,Urine Moderate (Negative); Mucus,Urine Many /hpf; Nitrite,Urine Negative (Negative); PH, Urine 5.5 (5.0-8.0); Protein,Urine 1+ (Negative); RBC,Urine 1 /hpf (0-5); Specific Gravity,Urine 1.031 (1.001-1.035); Squamous Epithelial Cell,Urine 3 /hpf (0-4); Urobilinogen,Urine <2.0 mg/dL (<2.0); WBC,Urine 2 /hpf (0-5)
[2020-09-19 20:54] LABS: Prothrombin Time 10.7 sec (9.0-12.0)
[2020-09-19] MEDS ORDERED: HYDROmorphone 0.5 MG/0.5 ML SYRINGE IVP STA (21:26)
[2020-09-19 22:05] VITALS: BP 106/64; PULSE 82; RESP 18; TEMP 98.6
== END 2020-09-19 22:05 | disposition home or self-care (01) ==
LOC: EC 19:23
DX: R07.89 Other chest pain (principal); R11.2 Nausea with vomiting, unspecified; R10.13 Epigastric pain; F41.9 Anxiety disorder, unspecified; F31.9 Bipolar disorder, unspecified; F43.10 Post-traumatic stress disorder, unspecified; Z79.899 Other long term (current) drug therapy; Z88.0 Allergy status to penicillin; Z88.1 Allergy status to other antibiotic agents; Z88.8 Allergy status to other drugs, medicaments and biological substances; Z86.14 Personal history of Methicillin resistant Staphylococcus aureus infection; Z90.49 Acquired absence of other specified parts of digestive tract
CPT/HCPCS: 36415; 93005; 85379; 80053; 83605; 83690; 84484; 85025; 85610; 85730; 81001; 81025; 87040; 71046; 99285; 96374; 96375 ×2; 96376; 96361 ×2; J2765; J1170 ×2; C9113

== ENCOUNTER 2020-11-09 20:27 | Emergency (ER) | payer MEDICARE, OTHER ==
[2020-11-09 20:40] VITALS: TEMP 99.7
[2020-11-09] MEDS ORDERED: HYDROmorphone 1 MG/ML 1 ML SYRINGE IVP STA (21:34)
[2020-11-09] MEDS ORDERED: SODIUM CHLORIDE 0.9% 1,000 ML IV ONE (21:34)
[2020-11-09] MEDS ORDERED: ONDANSETRON 4 MG/2 ML VIAL IVP STA (21:35)
[2020-11-09] MEDS ORDERED: LORazepam 2 MG/ML INJ IV STA (21:35)
--- NOTE | 2020-11-09 21:35 | ED ---
Nausea/Vomiting/Diarrhea HPI - General Source: patient, family Mode of arrival: ambulatory Limitations: no limitations <Arlene Duenas - Last Filed: 11/11/20 19:02> <Arely Moranah Fortino - Last Filed: 11/12/20 10:15> - General Chief complaint: Nausea/Vomiting/Diarrhea Stated complaint: Vomiting Time Seen by Provider: 11/09/20 21:10 - History of Present Illness Initial comments: 25-year-old female to extensive past medical history including chronic Crohn's/ulcerative colitis, abdominal effusions visceral hyperanalgesia presenting to the ER today for cc of chest pain, nausea, vomiting, diarrhea. Patient states that she has had loose bowel movements for the past 2 weeks she states just prior to that she was having issues with constipation as well as urinary retention and was at [facility] for 4 days. Patient states abotu a week ago she began have excessive nausea and vomiting. Patient states that sometimes she gets these episodes where she cannot stop having diarrhea or vomiting. Patient states she has not been able to take her gabapentin Percocet amitrycline ,latuda Prozac Cogentin Vistaril or dicyclomine. Patient states that she has no had blood in her vomit nor her stools. Denies fevers. Patient states that in June 2020 she had blood clot secondary to a left arm PICC line. She denies pulmonary embolism. Patient states that she had the PICC line removed which was being used for TPN. Patient states that she also use a report that was removed about 3 weeks ago around the same time that her eliquis was discontinued. Patient states she did have a second PICC line placed at [facility] for 4 days for TPN at her last hospitalization approximately 3 weeks ago. States that this was removed prior to discharge. Patient states her colonoscopy at the hospitalization was overall unremarkable. Patient states that today she had chest pain that began while sitting at the table, she states she has had occasional chest pain since the port removal, but today it was worse and has since improved. Patient denies dyspnea, leg or arm swelling. Denies hemoptysis. Patient dneies pain with deep inspiration. Patient denies new or concernign abdominal pain. Patient appears nontoxic on arrival but HR is elevated. (Arlene Duenas) - Related Data Home Medications Medication Instructions Recorded Confirmed Medroxyprogesterone Acetate 150 mg IM Q90D 03/10/18 08/21/20 [Depo-Provera] Amitriptyline HCl 20 mg PO HS 04/11/18 08/21/20 Lurasidone [Latuda] 80 mg PO HS 03/07/19 08/21/20 Benztropine Mesylate [Cogentin] 2 mg PO BID PRN 12/06/19 08/21/20 Ustekinumab [Stelara] 90 mg IM Q56D 12/06/19 08/21/20 Amphetamine [Adzenys Xr-Odt] 6.3 mg PO DAILY 05/17/20 08/21/20 Bisacodyl 5 mg PO BID PRN 05/17/20 08/21/20 Buprenorphine HCl [Belbuca] 300 mcg BUCCAL Q12H 05/17/20 08/21/20 Dicyclomine [Bentyl] 10 mg PO QID PRN 05/17/20 08/21/20 FLUoxetine HCL [PROzac Weekly] 90 mg PO WE 05/17/20 08/21/20 Fluticasone Nasal [place] [Flonase 1 spray EA NOSTRIL DAILY PRN 05/17/20 08/21/20 Nasal [place]] Loratadine [Claritin] 10 mg PO DAILY PRN 05/17/20 08/21/20 Metoclopramide HCl [Reglan] 10 mg PO Q6H PRN 05/17/20 08/21/20 Na Phos,M-B/Na Phos,Di-Ba [Fleet 133 ml RECTAL DAILY PRN 05/17/20 08/21/20 Adult] Omeprazole [PriLOSEC] 40 mg PO HS 05/17/20 08/21/20 Ondansetron [Zofran ODT] 4 mg PO Q8HR PRN 05/17/20 08/21/20 Vitamin C/Biotin [Hair, Skin and 2 tab PO HS 05/17/20 08/21/20 Nails] hydrOXYzine pamoate [Vistaril] 100 mg PO TID PRN 05/17/20 08/21/20 oxyCODONE HCL/ACETAMINOPHEN 1 tab PO TID PRN 05/17/20 08/21/20 [Percocet 7.5-325 mg] Apixaban [Eliquis] 5 mg PO BID 08/07/20 08/21/20 Gabapentin Solution 250mg/5ml 1,000 mg PO Q6H PRN 08/07/20 08/21/20 Previous Rx's Medication Instructions Recorded Cephalexin [Keflex] 500 mg PO BID 5 Days #10 cap 08/20/20 Pantoprazole [Protonix] 40 mg PO DAILY 14 Days #14 08/20/20 tablet. Metoclopramide [Reglan] 10 mg PO TID PRN #15 tab 09/19/20 Cephalexin [Keflex] 500 mg PO Q6HR 7 Days #28 cap 11/09/20 Allergies Allergy/AdvReac Type Severity Reaction Status Date / Time adalimumab [From Humira] Allergy RASH/NAUSEA/VOMITING/JOINT Verified 11/11/20 21:16 PAIN amoxicillin trihydrate Allergy Rash/Hives Verified 11/11/20 21:16 [From Augmentin] potassium clavulanate Allergy Rash/Hives Verified 11/11/20 21:16 [From Augmentin] Review of Systems ROS Other: All systems not noted in ROS Statement are negative. <Arlene Duenas - Last Filed: 11/11/20 19:02> ROS Other: All systems not noted in ROS Statement are negative. <Ana Moran - Last Filed: 11/12/20 10:15> ROS Statement: Those systems with pertinent positive or pertinent negative responses have been documented in the HPI. Past Medical History Past Medical History: No Reported History Additional Past Medical History / Comment(s): crohns, IBD, colitis dx of crohns at age 10. History of Any Multi-Drug Resistant Organisms: C-DIFF, MRSA Date of last positivie culture/infection: 2002, Jul 2019 cdiff MDRO Source:: Hip Past Surgical History: Bowel Resection, Cholecystectomy Additional Past Surgical History / Comment(s): wisdom teeth, bowel resection x 2 in 2017, sepsis after first surgery, 2 PICC lines removed, Port removed Past Anesthesia/Blood Transfusion Reactions: No Reported Reaction Past Psychological History: Anxiety, Bipolar, Depression, PTSD Smoking Status: Never smoker Past Alcohol Use History: None Reported Past Drug Use History: None Reported - Past Family History Mother Family Medical History: Cancer Father Family Medical History: No Reported History <Arlene Duenas - Last Filed: 11/11/20 19:02> General Exam Limitations: no limitations <Arlene Duenas - Last Filed: 11/11/20 19:02> - General Exam Comments Initial Comments: General: The patient is awake and alert, in no distress, and does not appear acutely ill. Eye: Pupils are equal, round and reactive to light, extra-ocular movements are intact. No nystagmus. There is normal conjunctiva bilaterally. No signs of ic terus. Ears, nose, mouth and throat: There are moist mucous membranes and no oral lesions. Neck: The neck is supple, there is no tenderness or JVD. Cardiovascular: There is a regular rate and rhythm. No murmur, rub or gallop is appreciated. Respiratory: Lungs are clear to auscultation, respirations are non-labored, breath sounds are equal. No wheezes, stridor, rales, or rhonchi. Gastrointestinal: Soft, non-distended, diffuse mild abdominal tenderness, abdomen without masses or organomegaly noted. There is no rebound or guarding present. No CVA tenderness. Musculoskeletal: Normal ROM, no tenderness. Strength 5/5. Sensation intact. Radial and DP pulses equal bilaterally 2+. Neurological: A&O x 3. CN II-XII intact grossly, There are no obvious motor or sensory deficits. Coordination appears grossly intact. Speech is normal. Skin: Skin is warm and dry and no rashes or lesions are noted. Psychiatric: Cooperative, appropriate mood & affect, normal judgment. (Arlene Duenas) Course Vital Signs 11/09/20 11/10/20 11/10/20 20:33 00:53 01:33 Temperature 99.7 F H Pulse Rate 97 98 80 Respiratory 18 16 16 Rate Blood Pressure 135/86 100/57 86/48 O2 Sat by Pulse 99 98 98 Oximetry Medical Decision Making - Lab Data Result diagrams: 11/09/20 21:57 11/09/20 21:57 <Arlene Duenas - Last Filed: 11/11/20 19:02> - Lab Data Result diagrams: 11/09/20 21:57 11/09/20 21:57 <Ana Moran - Last Filed: 11/12/20 10:15> - Medical Decision Making Mild hypokalemia, otherwise labs WNL. Patient appears nontoxic. Patient refused imaging of abdomen stating no increased pain and had recent 2, CT scans within last month. Patient later endorsed back pain, and states she has recurrent UTIs. Afebrile. Urine concerning for infection. Patient would like to trial outpatient oral antibiotics and nausea/vomiting and pain controlled. return parameters discussed at length and case discussed with attending Dr. Moran. follow-up call 11/11/20 (Arlene Duenas) I was available for consultation in the emergency department. The history and physical exam were done by the midlevel provider. I was consulted for this patients care. I reviewed the case with the midlevel provider and based on their presentation of the patient, I agree with the assessment, medical decision making and plan of care as documented. Chart was dictated using [employer] dictation software. Attempts were made to correct any dictation errors however some typographical errors may persist. Patient was seen during a national state of emergency due to the Covid-19 p andemic. (Ana Moran) - Lab Data Lab Results 11/09/20 11/09/20 11/09/20 Range/Units 21:57 21:57 21:57 WBC 6.3 (3.8-10.6) k/uL RBC 4.47 (3.80-5.40) m/uL Hgb 13.6 (11.4-16.0) gm/dL Hct 39.5 (34.0-46.0) % MCV 88.4 (80.0-100.0) fL MCH 30.5 (25.0-35.0) pg MCHC 34.5 (31.0-37.0) g/dL RDW 13.0 (11.5-15.5) % Plt Count 260 (150-450) k/uL MPV 6.8 Neutrophils % 49 % Lymphocytes % 43 % Monocytes % 5 % Eosinophils % 1 % Basophils % 1 % Neutrophils # 3.1 (1.3-7.7) k/uL Lymphocytes # 2.7 (1.0-4.8) k/uL Monocytes # 0.3 (0-1.0) k/uL Eosinophils # 0.1 (0-0.7) k/uL Basophils # 0.0 (0-0.2) k/uL D-Dimer (<0.60) mg/L FEU Sodium 139 (137-145) mmol/L Potassium 3.2 L (3.5-5.1) mmol/L Chloride 104 (98-107) mmol/L Carbon Dioxide 25 (22-30) mmol/L Anion Gap 10 mmol/L BUN 13 (7-17) mg/dL Creatinine 0.74 (0.52-1.04) mg/dL Est GFR (CKD-EPI)AfAm >90 (>60 ml/min/1.73 sqM) Est GFR (CKD-EPI)NonAf >90 (>60 ml/min/1.73 sqM) Glucose 97 (74-99) mg/dL Plasma Lactic Acid Rehan 0.8 (0.7-2.0) mmol/L Calcium 9.7 (8.4-10.2) mg/dL Magnesium 2.3 (1.6-2.3) mg/dL Total Bilirubin 0.4 (0.2-1.3) mg/dL AST 20 (14-36) U/L ALT 16 (4-34) U/L Alkaline Phosphatase 68 (38-126) U/L Troponin I (0.000-0.034) ng/mL NT-Pro-B Natriuret Pep pg/mL Total Protein 8.2 (6.3-8.2) g/dL Albumin 4.8 (3.5-5.0) g/dL Urine Color Urine Appearance (Clear) Urine pH (5.0-8.0) Ur Specific [place] (1.001-1.035) Urine Protein (Negative) Urine Glucose (UA) (Negative) Urine Ketones (Negative) Urine Blood (Negative) Urine Nitrite (Negative) Urine Bilirubin (Negative) Urine Urobilinogen (<2.0) mg/dL Ur Leukocyte Esterase (Negative) Urine RBC (0-5) /hpf Urine WBC (0-5) /hpf Urine WBC Clumps (None) /hpf Ur Squamous Epith Cells (0-4) /hpf Urine Bacteria (None) /hpf Urine Mucus (None) /hpf Coronavirus (PCR) (Not Detectd) 11/09/20 11/09/20 11/09/20 Range/Units 21:57 21:57 21:57 WBC (3.8-10.6) k/uL RBC (3.80-5.40) m/uL Hgb (11.4-16.0) gm/dL Hct (34.0-46.0) % MCV (80.0-100.0) fL MCH (25.0-35.0) pg MCHC (31.0-37.0) g/dL RDW (11.5-15.5) % Plt Count (150-450) k/uL MPV Neutrophils % % Lymphocytes % % Monocytes % % Eosinophils % % Basophils % % Neutrophils # (1.3-7.7) k/uL Lymphocytes # (1.0-4.8) k/uL Monocytes # (0-1.0) k/uL Eosinophils # (0-0.7) k/uL Basophils # (0-0.2) k/uL D-Dimer 0.27 (<0.60) mg/L FEU Sodium (137-145) mmol/L Potassium (3.5-5.1) mmol/L Chloride (98-107) mmol/L Carbon Dioxide (22-30) mmol/L Anion Gap mmol/L BUN (7-17) mg/dL Creatinine (0.52-1.04) mg/dL Est GFR (CKD-EPI)AfAm (>60 ml/min/1.73 sqM) Est GFR (CKD-EPI)NonAf (>60 ml/min/1.73 sqM) Glucose (74-99) mg/dL Plasma Lactic Acid Rehan (0.7-2.0) mmol/L Calcium (8.4-10.2) mg/dL Magnesium (1.6-2.3) mg/dL Total Bilirubin (0.2-1.3) mg/dL AST (14-36) U/L ALT (4-34) U/L Alkaline Phosphatase (38-126) U/L Troponin I <0.012 (0.000-0.034) ng/mL NT-Pro-B Natriuret Pep pg/mL Total Protein (6.3-8.2) g/dL Albumin (3.5-5.0) g/dL Urine Color Urine Appearance (Clear) Urine pH (5.0-8.0) Ur Specific [place] (1.001-1.035) Urine Protein (Negative) Urine Glucose (UA) (Negative) Urine Ketones (Negative) Urine Blood (Negative) Urine Nitrite (Negative) Urine Bilirubin (Negative) Urine Urobilinogen (<2.0) mg/dL Ur Leukocyte Esterase (Negative) Urine RBC (0-5) /hpf Urine WBC (0-5) /hpf Urine WBC Clumps (None) /hpf Ur Squamous Epith Cells (0-4) /hpf Urine Bacteria (None) /hpf Urine Mucus (None) /hpf Coronavirus (PCR) Not Detected (Not Detectd) 11/09/20 11/09/20 Range/Units 21:57 23:14 WBC (3.8-10.6) k/uL RBC (3.80-5.40) m/uL Hgb (11.4-16.0) gm/dL Hct (34.0-46.0) % MCV (80.0-100.0) fL MCH (25.0-35.0) pg MCHC (31.0-37.0) g/dL RDW (11.5-15.5) % Plt Count (150-450) k/uL MPV Neutrophils % % Lymphocytes % % Monocytes % % Eosinophils % % Basophils % % Neutrophils # (1.3-7.7) k/uL Lymphocytes # (1.0-4.8) k/uL Monocytes # (0-1.0) k/uL Eosinophils # (0-0.7) k/uL Basophils # (0-0.2) k/uL D-Dimer (<0.60) mg/L FEU Sodium (137-145) mmol/L Potassium (3.5-5.1) mmol/L Chloride (98-107) mmol/L Carbon Dioxide (22-30) mmol/L Anion Gap mmol/L BUN (7-17) mg/dL Creatinine (0.52-1.04) mg/dL Est GFR (CKD-EPI)AfAm (>60 ml/min/1.73 sqM) Est GFR (CKD-EPI)NonAf (>60 ml/min/1.73 sqM) Glucose (74-99) mg/dL Plasma Lactic Acid Rehan (0.7-2.0) mmol/L Calcium (8.4-10.2) mg/dL Magnesium (1.6-2.3) mg/dL Total Bilirubin (0.2-1.3) mg/dL AST (14-36) U/L ALT (4-34) U/L Alkaline Phosphatase (38-126) U/L Troponin I (0.000-0.034) ng/mL NT-Pro-B Natriuret Pep 41 pg/mL Total Protein (6.3-8.2) g/dL Albumin (3.5-5.0) g/dL Urine Color Yellow Urine Appearance Turbid H (Clear) Urine pH 6.0 (5.0-8.0) Ur Specific [place] 1.028 (1.001-1.035) Urine Protein 2+ H (Negative) Urine Glucose (UA) Negative (Negative) Urine Ketones Negative (Negative) Urine Blood Trace H (Negative) Urine Nitrite Negative (Negative) Urine Bilirubin Negative (Negative) Urine Urobilinogen <2.0 (<2.0) mg/dL Ur Leukocyte Esterase Large H (Negative) Urine RBC 42 H (0-5) /hpf Urine WBC >182 H (0-5) /hpf Urine WBC Clumps Few H (None) /hpf Ur Squamous Epith Cells 23 H (0-4) /hpf Urine Bacteria Occasional H (None) /hpf Urine Mucus Many H (None) /hpf Coronavirus (PCR) (Not Detectd) Disposition Is patient prescribed a controlled substance at d/c from ED?: No Time of Disposition: 23:21 <Arlene Duenas - Last Filed: 11/11/20 19:02> <Ana Moran - Last Filed: 11/12/20 10:15> Clinical Impression: Vomiting, Diarrhea, Dehydration, Hypokalemia, Chronic abdominal pain, Chest discomfort, UTI (urinary tract infection) Disposition: HOME SELF-CARE Condition: Good Instructions (If sedation given, give patient instructions): Urinary Tract Infection in Women (ED), Acute Nausea and Vomiting (ED), Acute Diarrhea (ED) Additional Instructions: Please use medication as discussed. Please follow-up with family doctor in the next 2 days.. Please return to emergency room if the symptoms increase or worsen or for any other concerns. Prescriptions: Cephalexin [Keflex] 500 mg PO Q6HR 7 Days #28 cap Referrals: Charlotte Slade MD [Primary Care Provider] - 1-2 days
[2020-11-09] MEDS ORDERED: SODIUM CHLORIDE 0.9% 1,000 ML IV SCH (21:45)
[2020-11-09] MEDS ORDERED: CAPSAICIN 0.025% CREAM 60 GM TUBE TOPICAL SCH (22:00)
[2020-11-09 22:18] LABS: Basophils % (A) 1 %; Eosinophils # (A) 0.1 k/uL (0-0.7); Eosinophils % (A) 1 %; HCT 39.5 % (34.0-46.0); HGB 13.6 gm/dL (11.4-16.0); Lymphocytes # (A) 2.7 k/uL (1.0-4.8); Lymphocytes % (A) 43 %; MCH 30.5 pg (25.0-35.0); MCHC 34.5 g/dL (31.0-37.0); MCV 88.4 fL (80.0-100.0); Mean Platelet Volume 6.8; Monocytes # (A) 0.3 k/uL (0-1.0); Monocytes % (A) 5 %; Neutrophils # (A) 3.1 k/uL (1.3-7.7); Neutrophils % (A) 49 %; Platelet Count 260 k/uL (150-450); RBC 4.47 m/uL (3.80-5.40); WBC 6.3 k/uL (3.8-10.6)
[2020-11-09 22:26] LABS: ALT 16 U/L (4-34); AST 20 U/L (14-36); African American GFR (CKD) >90 (>60 ml/min/1.73 sqM); Albumin 4.8 g/dL (3.5-5.0); Alkaline Phosphatase 68 U/L (38-126); Anion Gap 10 mmol/L; Blood Urea Nitrogen 13 mg/dL (7-17); Calcium 9.7 mg/dL (8.4-10.2); Carbon Dioxide 25 mmol/L (22-30); Chloride 104 mmol/L (98-107); Glucose 97 mg/dL (74-99); Magnesium 2.3 mg/dL (1.6-2.3); Non-African American GFR(CKD) >90 (>60 ml/min/1.73 sqM); Potassium 3.2 mmol/L (3.5-5.1); Sodium 139 mmol/L (137-145); Total Bilirubin 0.4 mg/dL (0.2-1.3); Total Protein 8.2 g/dL (6.3-8.2)
[2020-11-09] MEDS ORDERED: POTASSIUM CHLORIDE ER 20 MEQ TAB.ER PO STA (22:54)
--- NOTE | 2020-11-09 23:13 | US ---
EXAMINATION TYPE: US renals and bladder DATE OF EXAM: 11/09/2020 COMPARISON: CT, Abd limited US CLINICAL HISTORY: back pain, retention. Back pain. EXAM MEASUREMENTS: Right Kidney: 10.8 x 4.2 x 3.4 cm Left Kidney: 11.0 x 4.6 4.8 cm Slightly limited due to gas and rib shadow. Right Kidney: No hydronephrosis or masses seen Left Kidney: No hydronephrosis or masses seen Bladder: Appears anechoic. Bilateral Jets seen: Yes IMPRESSION: Normal exam. No evidence of renal mass or obstruction. Normal urinary bladder.
[2020-11-09 23:32] LABS: Appearance,Urine Turbid (Clear); Bacteria,Urine Occasional /hpf; Bilirubin,Urine Negative (Negative); Blood,Urine Trace (Negative); Color,Urine Yellow; Glucose,Urine (UA) Negative (Negative); Ketones,Urine Negative (Negative); Leukocyte Esterase,Urine Large (Negative); Mucus,Urine Many /hpf; Nitrite,Urine Negative (Negative); Protein,Urine 2+ (Negative); RBC,Urine 42 /hpf (0-5); Specific Gravity,Urine 1.028 (1.001-1.035); Squamous Epithelial Cell,Urine 23 /hpf (0-4); Urobilinogen,Urine <2.0 mg/dL (<2.0); WBC,Urine >182 /hpf (0-5)
[2020-11-09] MEDS ORDERED: cefTRIAXone IN SWFI 1,000 MG/10 ML SYRINGE IVP ONE (23:45)
[2020-11-09] MEDS ORDERED: AMITRIPTYLINE HCL 10 MG TAB PO SCH (23:45)
[2020-11-10 00:55] VITALS: RESP 16
[2020-11-10 01:37] VITALS: BP 86/48; PULSE 80
== END 2020-11-10 01:37 | disposition home or self-care (01) ==
LOC: EC 20:27
DX: N39.0 Urinary tract infection, site not specified (principal); R07.89 Other chest pain; E86.0 Dehydration; E87.6 Hypokalemia; R19.7 Diarrhea, unspecified; Z90.49 Acquired absence of other specified parts of digestive tract
CPT/HCPCS: 99284 ×2; 96365 ×2; 96375 ×2; 96361 ×2; 51798; 36415; 93005; 85379; 83880; 80053; 83605; 83735; 84484; 85025; 81001; 87040; 87086; 87635; 76770; J2060; J2405; J0696; J1170; J1790

== ENCOUNTER 2020-11-11 21:11 | Emergency (ER) | payer MEDICARE, OTHER ==
[2020-11-11] MEDS ORDERED: ONDANSETRON 4 MG/2 ML VIAL IVP STA (21:33)
[2020-11-11] MEDS ORDERED: SODIUM CHLORIDE 0.9% 500 ML 500 ML IV STA (21:33)
[2020-11-11] MEDS ORDERED: SODIUM CHLORIDE 0.9% 1,000 ML IV STA (21:33)
[2020-11-11] MEDS ORDERED: HYDROmorphone 1 MG/ML 1 ML SYRINGE IVP STA (22:06)
--- NOTE | 2020-11-11 22:22 | ED ---
Abdominal Pain HPI - General Chief Complaint: Abdominal Pain Stated Complaint: Revisit Infection Time Seen by Provider: 11/11/20 21:26 Source: patient Mode of arrival: wheelchair - History of Present Illness Initial Comments: 25-year-old female presents to emergency Department chief complaint abdominal pain. Patient reports she was in emergency department 3 days ago and diagnosed with a urinary check infection. States she was discharged with oral antibiotics. Patient reports she is continuing to have nausea with multiple episodes of nonbloody bilious nonbloody vomiting. Patient reports not being able to tolerate by mouth intake. States she has not been able take her antibiotics. States she took Zofran and Reglan home with no improvement of symptoms. She does complain of lower abdominal pain which she reports is secondary to her Crohn's. However, she states there is right-sided flank pain as well that was there when she developed the UTI. Patient doesn't history of UTIs after she undergoes treatment for Crohn's. She reports typically she does not have any urinary symptoms. - Related Data Home Medications Medication Instructions Recorded Confirmed Medroxyprogesterone Acetate 150 mg IM Q90D 03/10/18 08/21/20 [Depo-Provera] Amitriptyline HCl 20 mg PO HS 04/11/18 08/21/20 Lurasidone [Latuda] 80 mg PO HS 03/07/19 08/21/20 Benztropine Mesylate [Cogentin] 2 mg PO BID PRN 12/06/19 08/21/20 Ustekinumab [Stelara] 90 mg IM Q56D 12/06/19 08/21/20 Amphetamine [Adzenys Xr-Odt] 6.3 mg PO DAILY 05/17/20 08/21/20 Bisacodyl 5 mg PO BID PRN 05/17/20 08/21/20 Buprenorphine HCl [Belbuca] 300 mcg BUCCAL Q12H 05/17/20 08/21/20 Dicyclomine [Bentyl] 10 mg PO QID PRN 05/17/20 08/21/20 FLUoxetine HCL [PROzac Weekly] 90 mg PO WE 05/17/20 08/21/20 Fluticasone Nasal [place] [Flonase 1 spray EA NOSTRIL DAILY PRN 05/17/20 08/21/20 Nasal [place]] Loratadine [Claritin] 10 mg PO DAILY PRN 05/17/20 08/21/20 Metoclopramide HCl [Reglan] 10 mg PO Q6H PRN 05/17/20 08/21/20 Na Phos,M-B/Na Phos,Di-Ba [Fleet 133 ml RECTAL DAILY PRN 05/17/20 08/21/20 Adult] Omeprazole [PriLOSEC] 40 mg PO HS 05/17/20 08/21/20 Ondansetron [Zofran ODT] 4 mg PO Q8HR PRN 05/17/20 08/21/20 Vitamin C/Biotin [Hair, Skin and 2 tab PO HS 05/17/20 08/21/20 Nails] hydrOXYzine pamoate [Vistaril] 100 mg PO TID PRN 05/17/20 08/21/20 oxyCODONE HCL/ACETAMINOPHEN 1 tab PO TID PRN 05/17/20 08/21/20 [Percocet 7.5-325 mg] Apixaban [Eliquis] 5 mg PO BID 08/07/20 08/21/20 Gabapentin Solution 250mg/5ml 1,000 mg PO Q6H PRN 08/07/20 08/21/20 Previous Rx's Medication Instructions Recorded Cephalexin [Keflex] 500 mg PO BID 5 Days #10 cap 08/20/20 Pantoprazole [Protonix] 40 mg PO DAILY 14 Days #14 08/20/20 tablet. Metoclopramide [Reglan] 10 mg PO TID PRN #15 tab 09/19/20 Cephalexin [Keflex] 500 mg PO Q6HR 7 Days #28 cap 11/09/20 Allergies Allergy/AdvReac Type Severity Reaction Status Date / Time adalimumab [From Humira] Allergy RASH/NAUSEA/VOMITING/JOINT Verified 11/11/20 21:16 PAIN amoxicillin trihydrate Allergy Rash/Hives Verified 11/11/20 21:16 [From Augmentin] potassium clavulanate Allergy Rash/Hives Verified 11/11/20 21:16 [From Augmentin] Review of Systems ROS Statement: Those systems with pertinent positive or pertinent negative responses have been documented in the HPI. ROS Other: All systems not noted in ROS Statement are negative. Past Medical History Past Medical History: No Reported History Additional Past Medical History / Comment(s): crohns, IBD, colitis dx of crohns at age 10. History of Any Multi-Drug Resistant Organisms: C-DIFF, MRSA Date of last positivie culture/infection: 2002, Jul 2019 cdiff MDRO Source:: Hip Past Surgical History: Bowel Resection, Cholecystectomy Additional Past Surgical History / Comment(s): wisdom teeth, bowel resection x 2 in 2017, sepsis after first surgery, 2 PICC lines removed, Port removed Past Anesthesia/Blood Transfusion Reactions: No Reported Reaction Past Psychological History: Anxiety, Bipolar, Depression, PTSD Smoking Status: Never smoker Past Alcohol Use History: None Reported Past Drug Use History: None Reported - Past Family History Mother Family Medical History: Cancer Father Family Medical History: No Reported History General Exam Limitations: no limitations General appearance: alert, in no apparent distress Head exam: Present: atraumatic, normocephalic, normal inspection Eye exam: Present: normal appearance, PERRL, EOMI Pupils: Present: normal accommodation ENT exam: Present: normal exam, normal oropharynx, mucous membranes moist, TM's normal bilaterally, normal external ear exam Neck exam: Present: normal inspection, full ROM. Absent: tenderness Respiratory exam: Present: normal lung sounds bilaterally. Absent: respiratory distress Cardiovascular Exam: Present: regular rate, normal rhythm, normal heart sounds GI/Abdominal exam: Present: soft. Absent: distended, tenderness, guarding Extremities exam: Present: normal inspection, full ROM, normal capillary refill. Absent: tenderness, pedal edema, joint swelling Back exam: Present: normal inspection, full ROM, tenderness, CVA tenderness (R) Neurological exam: Present: alert, oriented X3 Psychiatric exam: Present: normal affect, normal mood Skin exam: Present: warm, dry, intact, normal color Course Vital Signs 11/11/20 21:13 Temperature 98.8 F Pulse Rate 99 Respiratory 18 Rate Blood Pressure 124/84 O2 Sat by Pulse 100 Oximetry Medical Decision Making - Medical Decision Making 25-year-old female with history of Crohn's presents emergency Department with a chief complaint of abdominal pain. On physical examination, mild right CVA tenderness. And diffuse, mild abdominal tenderness. CBC CMP unremarkable. She is not . UA reveals improvement in the urinary tract infection. No signs of dehydration. Patient was given 1.5 L of IV fluids. Zofran and Dilaudid. On reevaluation, reports the nausea still persisted. She was given Compazine which helped resolve her symptoms. She was offered imaging, she declined. Patient feels comfortable going home. Strict return parameters were thoroughly discussed patient was sitting agreeable. Case discussed with Taya Ramos - Lab Data Result diagrams: 11/11/20 21:43 11/11/20 21:43 Lab Results 11/11/20 11/11/20 11/11/20 Range/Units 21:43 21:43 21:43 WBC 6.1 (3.8-10.6) k/uL RBC 4.03 (3.80-5.40) m/uL Hgb 12.3 (11.4-16.0) gm/dL Hct 36.1 (34.0-46.0) % MCV 89.6 (80.0-100.0) fL MCH 30.5 (25.0-35.0) pg MCHC 34.1 (31.0-37.0) g/dL RDW 13.8 (11.5-15.5) % Plt Count 206 (150-450) k/uL MPV 6.9 Neutrophils % (Manual) 39 % Lymphocytes % (Manual) 57 % Monocytes % (Manual) 3 % Eosinophils % (Manual) 1 % Neutrophils # (Manual) 2.38 (1.3-7.7) k/uL Lymphocytes # (Manual) 3.48 (1.0-4.8) k/uL Monocytes # (Manual) 0.18 (0-1.0) k/uL Eosinophils # (Manual) 0.06 (0-0.7) k/uL Nucleated RBCs 0 (0-0) /100 WBC Manual Slide Review Performed Anisocytosis (manual) Present Sodium 138 (137-145) mmol/L Potassium 3.7 (3.5-5.1) mmol/L Chloride 108 H (98-107) mmol/L Carbon Dioxide 21 L (22-30) mmol/L Anion Gap 9 mmol/L BUN 12 (7-17) mg/dL Creatinine 0.67 (0.52-1.04) mg/dL Est GFR (CKD-EPI)AfAm >90 (>60 ml/min/1.73 sqM) Est GFR (CKD-EPI)NonAf >90 (>60 ml/min/1.73 sqM) Glucose 83 (74-99) mg/dL Calcium 9.3 (8.4-10.2) mg/dL Total Bilirubin 0.5 (0.2-1.3) mg/dL AST 23 (14-36) U/L ALT 15 (4-34) U/L Alkaline Phosphatase 51 (38-126) U/L Total Protein 7.3 (6.3-8.2) g/dL Albumin 4.2 (3.5-5.0) g/dL Urine Color Yellow Urine Appearance Cloudy H (Clear) Urine pH 6.0 (5.0-8.0) Ur Specific [place] 1.034 (1.001-1.035) Urine Protein 1+ H (Negative) Urine Glucose (UA) Negative (Negative) Urine Ketones Negative (Negative) Urine Blood Negative (Negative) Urine Nitrite Negative (Negative) Urine Bilirubin Negative (Negative) Urine Urobilinogen <2.0 (<2.0) mg/dL Ur Leukocyte Esterase Moderate H (Negative) Urine RBC 5 (0-5) /hpf Urine WBC 37 H (0-5) /hpf Ur Squamous Epith Cells 6 H (0-4) /hpf Urine Bacteria Rare H (None) /hpf Hyaline Casts 243 H (0-2) /lpf Urine Mucus Many H (None) /hpf Urine HCG, Qual (Not Detectd) 11/11/20 Range/Units 21:43 WBC (3.8-10.6) k/uL RBC (3.80-5.40) m/uL Hgb (11.4-16.0) gm/dL Hct (34.0-46.0) % MCV (80.0-100.0) fL MCH (25.0-35.0) pg MCHC (31.0-37.0) g/dL RDW (11.5-15.5) % Plt Count (150-450) k/uL MPV Neutrophils % (Manual) % Lymphocytes % (Manual) % Monocytes % (Manual) % Eosinophils % (Manual) % Neutrophils # (Manual) (1.3-7.7) k/uL Lymphocytes # (Manual) (1.0-4.8) k/uL Monocytes # (Manual) (0-1.0) k/uL Eosinophils # (Manual) (0-0.7) k/uL Nucleated RBCs (0-0) /100 WBC Manual Slide Review Anisocytosis (manual) Sodium (137-145) mmol/L Potassium (3.5-5.1) mmol/L Chloride (98-107) mmol/L Carbon Dioxide (22-30) mmol/L Anion Gap mmol/L BUN (7-17) mg/dL Creatinine (0.52-1.04) mg/dL Est GFR (CKD-EPI)AfAm (>60 ml/min/1.73 sqM) Est GFR (CKD-EPI)NonAf (>60 ml/min/1.73 sqM) Glucose (74-99) mg/dL Calcium (8.4-10.2) mg/dL Total Bilirubin (0.2-1.3) mg/dL AST (14-36) U/L ALT (4-34) U/L Alkaline Phosphatase (38-126) U/L Total Protein (6.3-8.2) g/dL Albumin (3.5-5.0) g/dL Urine Color Urine Appearance (Clear) Urine pH (5.0-8.0) Ur Specific [place] (1.001-1.035) Urine Protein (Negative) Urine Glucose (UA) (Negative) Urine Ketones (Negative) Urine Blood (Negative) Urine Nitrite (Negative) Urine Bilirubin (Negative) Urine Urobilinogen (<2.0) mg/dL Ur Leukocyte Esterase (Negative) Urine RBC (0-5) /hpf Urine WBC (0-5) /hpf Ur Squamous Epith Cells (0-4) /hpf Urine Bacteria (None) /hpf Hyaline Casts (0-2) /lpf Urine Mucus (None) /hpf Urine HCG, Qual Not Detected (Not Detectd) Disposition Clinical Impression: Urinary tract infection, Nausea & vomiting Disposition: HOME SELF-CARE Condition: Stable Instructions (If sedation given, give patient instructions): Urinary Tract Infection in Women (ED) Additional Instructions: Continue taking your Keflex. Return to emergency department if symptoms worsen. Is patient prescribed a controlled substance at d/c from ED?: No Referrals: Charlotte Slade MD [Primary Care Provider] - 1-2 days Time of Disposition: 00:06
[2020-11-11 22:24] LABS: HCT 36.1 % (34.0-46.0); HGB 12.3 gm/dL (11.4-16.0); MCH 30.5 pg (25.0-35.0); MCHC 34.1 g/dL (31.0-37.0); MCV 89.6 fL (80.0-100.0); Mean Platelet Volume 6.9; Platelet Count 206 k/uL (150-450); RBC 4.03 m/uL (3.80-5.40); RDW 13.8 % (11.5-15.5); WBC 6.1 k/uL (3.8-10.6)
[2020-11-11 22:25] LABS: ALT 15 U/L (4-34); AST 23 U/L (14-36); African American GFR (CKD) >90 (>60 ml/min/1.73 sqM); Albumin 4.2 g/dL (3.5-5.0); Alkaline Phosphatase 51 U/L (38-126); Anion Gap 9 mmol/L; Blood Urea Nitrogen 12 mg/dL (7-17); Calcium 9.3 mg/dL (8.4-10.2); Carbon Dioxide 21 mmol/L (22-30); Chloride 108 mmol/L (98-107); Glucose 83 mg/dL (74-99); Non-African American GFR(CKD) >90 (>60 ml/min/1.73 sqM); Potassium 3.7 mmol/L (3.5-5.1); Sodium 138 mmol/L (137-145); Total Bilirubin 0.5 mg/dL (0.2-1.3); Total Protein 7.3 g/dL (6.3-8.2)
[2020-11-11] MEDS ORDERED: PROCHLORPERAZINE INJ 10 MG/2 ML VIAL IVP STA (22:56)
[2020-11-11 23:33] LABS: Anisocytosis (M) Present; Eosinophils # (M) 0.06 k/uL (0-0.7); Lymphocytes # (M) 3.48 k/uL (1.0-4.8); Monocytes # (M) 0.18 k/uL (0-1.0); Neutrophils # (M) 2.38 k/uL (1.3-7.7); Neutrophils % (M) 39 %; Nucleated Red Blood Cells 0 /100 WBC (0-0); Total Cells Counted 100
[2020-11-11 23:50] LABS: Appearance,Urine Cloudy (Clear); Bacteria,Urine Rare /hpf; Bilirubin,Urine Negative (Negative); Blood,Urine Negative (Negative); Color,Urine Yellow; Glucose,Urine (UA) Negative (Negative); Hyaline Casts,Urine 243 /lpf (0-2); Ketones,Urine Negative (Negative); Leukocyte Esterase,Urine Moderate (Negative); Mucus,Urine Many /hpf; Nitrite,Urine Negative (Negative); Protein,Urine 1+ (Negative); RBC,Urine 5 /hpf (0-5); Specific Gravity,Urine 1.034 (1.001-1.035); Squamous Epithelial Cell,Urine 6 /hpf (0-4); Urobilinogen,Urine <2.0 mg/dL (<2.0); WBC,Urine 37 /hpf (0-5)
[2020-11-12 00:39] VITALS: BP 90/55; PULSE 85; RESP 15; TEMP 97.7
== END 2020-11-12 00:13 | disposition home or self-care (01) ==
LOC: EC 21:11
DX: N39.0 Urinary tract infection, site not specified (principal); F32.9 Major depressive disorder, single episode, unspecified; Z90.49 Acquired absence of other specified parts of digestive tract
CPT/HCPCS: 36415; 80053; 85025; 81001; 81025; 87086; 99284; 96365; 96375; 96361; J0780; J2405; J1170

== ENCOUNTER → 2020-11-17 | Outpatient (CLI) | payer MEDICARE, OTHER ==
[~2020-11-17] MED LIST: SODIUM CHLORIDE 0.9% 500 ML 500 ML in EMPTY BAG 1 BAG IV PRN
[2020-11-17 09:31] VITALS: BP 107/73; PULSE 106; RESP 16; TEMP 99
[2020-11-17] MEDS: SODIUM CHLORIDE 0.9% 1,000 ML IV NR ×2 (10:05→11:19)
== END ==
LOC: PROCWHC3 09:08
PROVIDERS: ATTEND Family Medicine
DX: R11.2 Nausea with vomiting, unspecified (principal); K50.819 Crohn's disease of both small and large intestine with unspecified complications
CPT/HCPCS: 96360; 96361

== ENCOUNTER → 2020-12-12 | Outpatient (CLI) | payer MEDICARE, OTHER ==
[2020-12-12 12:48] VITALS: RESP 16
[2020-12-12] MEDS: SODIUM CHLORIDE 0.9% 1,000 ML IV SCH ×2 (12:50→14:20)
[2020-12-12 12:56] VITALS: BP 107/67; PULSE 62; TEMP 98.7
== END | disposition home or self-care (01) ==
LOC: PROCWHC3 12:33
PROVIDERS: ATTEND Family Medicine
DX: K50.819 Crohn's disease of both small and large intestine with unspecified complications (principal); R11.2 Nausea with vomiting, unspecified
CPT/HCPCS: 96360; 96361

== ENCOUNTER 2020-12-14 00:13 | Emergency (ER) | payer MEDICARE, OTHER ==
[2020-12-14 00:19] VITALS: TEMP 98.3
[2020-12-14] MEDS ORDERED: SODIUM CHLORIDE 0.9% 1,000 ML IV STA (00:37)
[2020-12-14] MEDS ORDERED: HYDROmorphone 1 MG/ML 1 ML SYRINGE IVP STA ×2 (00:37→02:52)
[2020-12-14] MEDS ORDERED: diphenhydrAMINE 50 MG/ML 1 ML VIAL IVP STA (00:38)
[2020-12-14] MEDS ORDERED: METOCLOPRAMIDE 5 MG/ML 2 ML VIAL IVP STA (00:38)
--- NOTE | 2020-12-14 00:49 | ED ---
Abdominal Pain HPI - General Chief Complaint: Abdominal Pain Stated Complaint: Abdominal Pain Time Seen by Provider: 12/14/20 00:23 Source: patient Mode of arrival: wheelchair Limitations: no limitations - History of Present Illness Initial Comments: 25 year-old female patient with past history significant for Crohn's disease presents to the emergency department for evaluation of right lower quadrant abdominal pain. Patient states pain started three days ago. States she has had persistent vomiting. Unable to keep her home medications down. Denies any fever or chills. States she has had diarrhea with some blood present. This is not unusual for her. She states that her pain is usually on the left side. Patient denies any recent rash, cough, shortness of breath, chest pain, constipation, back pain, numbness, tingling, dizziness, weakness, hematuria, dysuria, urinary urgency, urinary frequency, headache, visual changes, or any other complaints. - Related Data Home Medications Medication Instructions Recorded Confirmed Medroxyprogesterone Acetate 150 mg IM Q90D 03/10/18 11/17/20 [Depo-Provera] Amitriptyline HCl 20 mg PO HS 04/11/18 11/17/20 Lurasidone [Latuda] 80 mg PO HS 03/07/19 11/17/20 Benztropine Mesylate [Cogentin] 2 mg PO BID PRN 12/06/19 11/17/20 Ustekinumab [Stelara] 90 mg IM Q56D 12/06/19 11/17/20 Amphetamine [Adzenys Xr-Odt] 6.3 mg PO DAILY 05/17/20 11/17/20 Bisacodyl 5 mg PO BID PRN 05/17/20 11/17/20 Buprenorphine HCl [Belbuca] 300 mcg BUCCAL Q12H 05/17/20 11/17/20 Dicyclomine [Bentyl] 10 mg PO QID PRN 05/17/20 11/17/20 FLUoxetine HCL [PROzac Weekly] 90 mg PO WE 05/17/20 11/17/20 Fluticasone Nasal [place] [Flonase 1 spray EA NOSTRIL DAILY PRN 05/17/20 11/17/20 Nasal [place]] Loratadine [Claritin] 10 mg PO DAILY PRN 05/17/20 11/17/20 Metoclopramide HCl [Reglan] 10 mg PO Q6H PRN 05/17/20 11/17/20 Na Phos,M-B/Na Phos,Di-Ba [Fleet 133 ml RECTAL DAILY PRN 05/17/20 11/17/20 Adult] Omeprazole [PriLOSEC] 40 mg PO HS 05/17/20 11/17/20 Ondansetron [Zofran ODT] 4 mg PO Q8HR PRN 05/17/20 11/17/20 Vitamin C/Biotin [Hair, Skin and 2 tab PO HS 05/17/20 11/17/20 Nails] hydrOXYzine pamoate [Vistaril] 100 mg PO TID PRN 05/17/20 11/17/20 oxyCODONE HCL/ACETAMINOPHEN 1 tab PO TID PRN 05/17/20 11/17/20 [Percocet 7.5-325 mg] Apixaban [Eliquis] 5 mg PO BID 08/07/20 11/17/20 Gabapentin Solution 250mg/5ml 1,000 mg PO Q6H PRN 08/07/20 11/17/20 Previous Rx's Medication Instructions Recorded Cephalexin [Keflex] 500 mg PO BID 5 Days #10 cap 08/20/20 Pantoprazole [Protonix] 40 mg PO DAILY 14 Days #14 08/20/20 tablet. Metoclopramide [Reglan] 10 mg PO TID PRN #15 tab 09/19/20 cephALEXin [Keflex] 500 mg PO Q6HR 7 Days #28 cap 11/09/20 Cephalexin [Keflex] 500 mg PO Q6H #28 cap 12/14/20 Promethazine Suppository 25 mg RECTAL QID #28 supp 12/14/20 [Phenergan] Allergies Allergy/AdvReac Type Severity Reaction Status Date / Time adalimumab [From Humira] Allergy RASH/NAUSEA/VOMITING/JOINT Verified 12/14/20 00:19 PAIN amoxicillin trihydrate Allergy Rash/Hives Verified 12/14/20 00:19 [From Augmentin] potassium clavulanate Allergy Rash/Hives Verified 12/14/20 00:19 [From Augmentin] Review of Systems ROS Statement: Those systems with pertinent positive or pertinent negative responses have been documented in the HPI. ROS Other: All systems not noted in ROS Statement are negative. Past Medical History Past Medical History: No Reported History Additional Past Medical History / Comment(s): crohns, IBD, colitis dx of crohns at age 10. History of Any Multi-Drug Resistant Organisms: C-DIFF, MRSA Date of last positivie culture/infection: 2002, Jul 2019 cdiff MDRO Source:: Hip Past Surgical History: Bowel Resection, Cholecystectomy Additional Past Surgical History / Comment(s): wisdom teeth, bowel resection x 2 in 2017, sepsis after first surgery, 2 PICC lines removed, Port removed Past Anesthesia/Blood Transfusion Reactions: No Reported Reaction Past Psychological History: Anxiety, Bipolar, Depression, PTSD Smoking Status: Never smoker Past Alcohol Use History: None Reported Past Drug Use History: None Reported - Past Family History Mother Family Medical History: Cancer Father Family Medical History: No Reported History General Exam Limitations: no limitations General appearance: alert, in no apparent distress, other (Social well- developed, well-nourished adult female patient in distress related to pain. Vital signs upon presentation are temperature 98.3F, pulse 114, respirations 20, blood pressure 122/61, pulse ox 100% on room air.) Eye exam: Present: normal appearance, PERRL, EOMI. Absent: scleral icterus, conjunctival injection, periorbital swelling ENT exam: Present: normal exam, normal oropharynx, mucous membranes moist Respiratory exam: Present: normal lung sounds bilaterally. Absent: respiratory distress, wheezes, rales, rhonchi, stridor Cardiovascular Exam: Present: normal rhythm, tachycardia, normal heart sounds. Absent: systolic murmur, diastolic murmur, rubs, gallop, clicks GI/Abdominal exam: Present: soft, normal bowel sounds. Absent: distended, tenderness, guarding, rebound, rigid Neurological exam: Present: alert, oriented X3, CN II-XII intact Psychiatric exam: Present: normal affect, normal mood Skin exam: Present: warm, dry, intact, normal color. Absent: rash Course Vital Signs 12/14/20 00:14 Temperature 98.3 F Pulse Rate 114 H Respiratory 20 Rate Blood Pressure 122/61 O2 Sat by Pulse 100 Oximetry Medical Decision Making - Medical Decision Making 25 year-old female patient with past history significant for Crohn's disease with multiple bowel resections presents to the emergency department for evaluation of right lower quadrant abdominal pain. She has had appendectomy in the past. She is afebrile. Labs reviewed and are unremarkable. White blood cell count is normal, lactic acid negative. Urinalysis did show mild UTI. She'll be treated with antibiotics for this. She is given IV fluids and pain medication as well as nausea medication. Upon reevaluation reports persistent nausea and pain. We will give rectal suppository and additional IV dose of medicine but she'll be discharged to follow-up with her GI specialist and primary care physician for recheck in 1-2 days. Return parameters were discuss ed in detail. She verbalizes understanding and agrees with this plan. My attending is Dr. Leon. - Lab Data Result diagrams: 12/14/20 01:12/14/20 01: Lab Results 12/14/20 12/14/20 12/14/20 Range/Units 01:22 01: 01:22 WBC 8.7 (3.8-10.6) k/uL RBC 4.83 (3.80-5.40) m/uL Hgb 14.9 (11.4-16.0) gm/dL Hct 42.8 (34.0-46.0) % MCV 88.5 (80.0-100.0) fL MCH 30.8 (25.0-35.0) pg MCHC 34.8 (31.0-37.0) g/dL RDW 12.3 (11.5-15.5) % Plt Count 252 (150-450) k/uL MPV 7.0 Neutrophils % 51 % Lymphocytes % 41 % Monocytes % 4 % Eosinophils % 3 % Basophils % 1 % Neutrophils # 4.4 (1.3-7.7) k/uL Lymphocytes # 3.5 (1.0-4.8) k/uL Monocytes # 0.3 (0-1.0) k/uL Eosinophils # 0.2 (0-0.7) k/uL Basophils # 0.1 (0-0.2) k/uL Sodium (137-145) mmol/L Potassium (3.5-5.1) mmol/L Chloride (98-107) mmol/L Carbon Dioxide (22-30) mmol/L Anion Gap mmol/L BUN (7-17) mg/dL Creatinine (0.52-1.04) mg/dL Est GFR (CKD-EPI)AfAm (>60 ml/min/1.73 sqM) Est GFR (CKD-EPI)NonAf (>60 ml/min/1.73 sqM) Glucose (74-99) mg/dL Plasma Lactic Acid [place] (0.7-2.0) mmol/L Calcium (8.4-10.2) mg/dL Total Bilirubin (0.2-1.3) mg/dL AST (14-36) U/L ALT (4-34) U/L Alkaline Phosphatase (38-126) U/L Total Protein (6.3-8.2) g/dL Albumin (3.5-5.0) g/dL Lipase (23-300) U/L Urine Color Light Yellow Urine Appearance Clear (Clear) Urine pH 6.0 (5.0-8.0) Ur Specific [place] 1.010 (1.001-1.035) Urine Protein Negative (Negative) Urine Glucose (UA) Negative (Negative) Urine Ketones Negative (Negative) Urine Blood Negative (Negative) Urine Nitrite Negative (Negative) Urine Bilirubin Negative (Negative) Urine Urobilinogen <2.0 (<2.0) mg/dL Ur Leukocyte Esterase Large H (Negative) Urine RBC 1 (0-5) /hpf Urine WBC 26 H (0-5) /hpf Ur Squamous Epith Cells 1 (0-4) /hpf Urine Bacteria Rare H (None) /hpf Hyaline Casts 1 (0-2) /lpf Urine Mucus Few H (None) /hpf Urine HCG, Qual Not Detected (Not Detectd) 12/14/20 12/14/20 Range/Units 01:22 01:22 WBC (3.8-10.6) k/uL RBC (3.80-5.40) m/uL Hgb (11.4-16.0) gm/dL Hct (34.0-46.0) % MCV (80.0-100.0) fL MCH (25.0-35.0) pg MCHC (31.0-37.0) g/dL RDW (11.5-15.5) % Plt Count (150-450) k/uL MPV Neutrophils % % Lymphocytes % % Monocytes % % Eosinophils % % Basophils % % Neutrophils # (1.3-7.7) k/uL Lymphocytes # (1.0-4.8) k/uL Monocytes # (0-1.0) k/uL Eosinophils # (0-0.7) k/uL Basophils # (0-0.2) k/uL Sodium 138 (137-145) mmol/L Potassium 3.7 (3.5-5.1) mmol/L Chloride 104 (98-107) mmol/L Carbon Dioxide 22 (22-30) mmol/L Anion Gap 12 mmol/L BUN 7 (7-17) mg/dL Creatinine 0.79 (0.52-1.04) mg/dL Est GFR (CKD-EPI)AfAm >90 (>60 ml/min/1.73 sqM) Est GFR (CKD-EPI)NonAf >90 (>60 ml/min/1.73 sqM) Glucose 87 (74-99) mg/dL Plasma Lactic Acid Rehan 0.8 (0.7-2.0) mmol/L Calcium 10.0 (8.4-10.2) mg/dL Total Bilirubin 0.3 (0.2-1.3) mg/dL AST 24 (14-36) U/L ALT 16 (4-34) U/L Alkaline Phosphatase 72 (38-126) U/L Total Protein 8.3 H (6.3-8.2) g/dL Albumin 5.0 (3.5-5.0) g/dL Lipase 71 (23-300) U/L Urine Color Urine Appearance (Clear) Urine pH (5.0-8.0) Ur Specific [place] (1.001-1.035) Urine Protein (Negative) Urine Glucose (UA) (Negative) Urine Ketones (Negative) Urine Blood (Negative) Urine Nitrite (Negative) Urine Bilirubin (Negative) Urine Urobilinogen (<2.0) mg/dL Ur Leukocyte Esterase (Negative) Urine RBC (0-5) /hpf Urine WBC (0-5) /hpf Ur Squamous Epith Cells (0-4) /hpf Urine Bacteria (None) /hpf Hyaline Casts (0-2) /lpf Urine Mucus (None) /hpf Urine HCG, Qual (Not Detectd) - Radiology Data Radiology results: report reviewed, image reviewed Abdominal x-ray was obtained. Report was reviewed in its entirety. Impression by Dr. Valencia shows normal abdominal x-rays. Disposition Clinical Impression: Abdominal pain, UTI (urinary tract infection) Disposition: HOME SELF-CARE Condition: Good Instructions (If sedation given, give patient instructions): Abdominal Pain (ED) Additional Instructions: Complete antibiotic prescription in full. Use medications as directed. Follow up with your primary care physician for recheck in 1-2 days. Return for any new, worsening, or concerning symptoms. Prescriptions: Cephalexin [Keflex] 500 mg PO Q6H #28 cap Promethazine Suppository [Phenergan] 25 mg RECTAL QID #28 supp Is patient prescribed a controlled substance at d/c from ED?: No Referrals: Charlotte Slade MD [Primary Care Provider] - 1-2 days Time of Disposition: 02:55
--- NOTE | 2020-12-14 01:01 | XR ---
EXAM: XR Abdomen, 2 Views CLINICAL HISTORY: ITS.REASON XR Reason: abdominal pain TECHNIQUE: Frontal view of the abdomen/pelvis with upright view of the abdomen. COMPARISON: No relevant prior studies available. FINDINGS: Intraperitoneal space: No free air. Gastrointestinal tract: Unremarkable. Bones/joints: Unremarkable. IMPRESSION: Normal abdominal x-rays.
[2020-12-14 01:39] LABS: Basophils # (A) 0.1 k/uL (0-0.2); Basophils % (A) 1 %; Eosinophils # (A) 0.2 k/uL (0-0.7); Eosinophils % (A) 3 %; HCT 42.8 % (34.0-46.0); HGB 14.9 gm/dL (11.4-16.0); Lymphocytes # (A) 3.5 k/uL (1.0-4.8); Lymphocytes % (A) 41 %; MCH 30.8 pg (25.0-35.0); MCHC 34.8 g/dL (31.0-37.0); MCV 88.5 fL (80.0-100.0); Monocytes # (A) 0.3 k/uL (0-1.0); Monocytes % (A) 4 %; Neutrophils # (A) 4.4 k/uL (1.3-7.7); Neutrophils % (A) 51 %; Platelet Count 252 k/uL (150-450); RBC 4.83 m/uL (3.80-5.40); RDW 12.3 % (11.5-15.5); WBC 8.7 k/uL (3.8-10.6)
[2020-12-14 01:50] LABS: ALT 16 U/L (4-34); AST 24 U/L (14-36); African American GFR (CKD) >90 (>60 ml/min/1.73 sqM); Alkaline Phosphatase 72 U/L (38-126); Anion Gap 12 mmol/L; Blood Urea Nitrogen 7 mg/dL (7-17); Carbon Dioxide 22 mmol/L (22-30); Chloride 104 mmol/L (98-107); Glucose 87 mg/dL (74-99); Lipase 71 U/L (23-300); Non-African American GFR(CKD) >90 (>60 ml/min/1.73 sqM); Potassium 3.7 mmol/L (3.5-5.1); Sodium 138 mmol/L (137-145); Total Bilirubin 0.3 mg/dL (0.2-1.3); Total Protein 8.3 g/dL (6.3-8.2)
[2020-12-14 01:53] LABS: Appearance,Urine Clear (Clear); Bacteria,Urine Rare /hpf; Bilirubin,Urine Negative (Negative); Blood,Urine Negative (Negative); Color,Urine Light Yellow; Glucose,Urine (UA) Negative (Negative); Hyaline Casts,Urine 1 /lpf (0-2); Ketones,Urine Negative (Negative); Leukocyte Esterase,Urine Large (Negative); Mucus,Urine Few /hpf; Nitrite,Urine Negative (Negative); Protein,Urine Negative (Negative); RBC,Urine 1 /hpf (0-5); Squamous Epithelial Cell,Urine 1 /hpf (0-4); Urobilinogen,Urine <2.0 mg/dL (<2.0); WBC,Urine 26 /hpf (0-5)
[2020-12-14] MEDS ORDERED: CEPHALEXIN 500MG STARTER PACK 4 CAP BTL PO STA (02:52)
[2020-12-14] MEDS ORDERED: PROMETHAZINE SUPPOSITORY 25 MG SUPP RECTAL STA (02:52)
[2020-12-14 03:14] VITALS: BP 109/76; PULSE 96; RESP 18
== END 2020-12-14 03:15 | disposition home or self-care (01) ==
LOC: EC 00:13
DX: N39.0 Urinary tract infection, site not specified (principal); F41.9 Anxiety disorder, unspecified; F31.9 Bipolar disorder, unspecified; Z79.899 Other long term (current) drug therapy; Z79.01 Long term (current) use of anticoagulants; Z88.0 Allergy status to penicillin; Z88.1 Allergy status to other antibiotic agents; Z88.8 Allergy status to other drugs, medicaments and biological substances
CPT/HCPCS: 36415; 74018; 80053; 81001; 81025; 83605; 83690; 85025; 87086; 96361; 96374; 96375; 96376; 99284

== ENCOUNTER 2021-01-10 02:07 | Emergency (ER) | payer MEDICARE, OTHER ==
[2021-01-10 02:14] VITALS: TEMP 97.9
[2021-01-10] MEDS ORDERED: ONDANSETRON 4 MG/2 ML VIAL IVP STA (02:32)
[2021-01-10] MEDS ORDERED: SODIUM CHLORIDE 0.9% 1,000 ML IV STA ×2 (02:32)
[2021-01-10] MEDS ORDERED: SODIUM CHLORIDE 0.9% 500 ML 500 ML IV STA (02:32)
[2021-01-10] MEDS ORDERED: HYDROmorphone 1 MG/ML 1 ML SYRINGE IVP STA ×2 (02:34→04:51)
[2021-01-10] MEDS ORDERED: LORazepam 2 MG/ML INJ IV STA (02:34)
[2021-01-10] MEDS ORDERED: PANTOPRAZOLE 40 MG/10 ML VIAL IVP STA (02:34)
--- NOTE | 2021-01-10 02:35 | ED ---
Recheck HPI - General Chief Complaint: Abdominal Pain Stated Complaint: vomiting Time Seen by Provider: 01/10/21 02:10 Source: patient, RN notes reviewed, old records reviewed Mode of arrival: ambulatory Limitations: no limitations - History of Present Illness Initial Comments: 25-year-old female she presents for severe abdominal pain history of Crohn's disease. Patient concern for disease regarding of severe Crohn's. No recent travel history no sick contacts. Patient does have nausea vomiting currently. Patient does have diarrhea No blood in the stool. No fevers. MD Complaint: other (Severe abdominal pain) -: days(s) Returns Today for: persistent/worsening pain related to initial visit Symptoms Since Prior Visit: worsening pain Associated Symptoms: chest pain, abdominal pain Treatments Prior to Arrival: Given Pain Meds on - Related Data Home Medications Medication Instructions Recorded Confirmed Medroxyprogesterone Acetate 150 mg IM Q90D 03/10/18 01/05/21 [Depo-Provera] Amitriptyline HCl 20 mg PO HS 04/11/18 01/05/21 Lurasidone [Latuda] 80 mg PO HS 03/07/19 01/05/21 Benztropine Mesylate [Cogentin] 2 mg PO BID PRN 12/06/19 01/05/21 Ustekinumab [Stelara] 90 mg IM Q56D 12/06/19 01/05/21 Amphetamine [Adzenys Xr-Odt] 6.3 mg PO DAILY 05/17/20 01/05/21 Bisacodyl 5 mg PO BID PRN 05/17/20 01/05/21 Buprenorphine HCl [Belbuca] 300 mcg BUCCAL Q12H 05/17/20 01/05/21 Dicyclomine [Bentyl] 10 mg PO QID PRN 05/17/20 01/05/21 FLUoxetine HCL [PROzac Weekly] 90 mg PO WE 05/17/20 01/05/21 Fluticasone Nasal [place] [Flonase 1 spray EA NOSTRIL DAILY PRN 05/17/20 01/05/21 Nasal [place]] Loratadine [Claritin] 10 mg PO DAILY PRN 05/17/20 01/05/21 Metoclopramide HCl [Reglan] 10 mg PO Q6H PRN 05/17/20 01/05/21 Na Phos,M-B/Na Phos,Di-Ba [Fleet 133 ml RECTAL DAILY PRN 05/17/20 01/05/21 Adult] Omeprazole [PriLOSEC] 40 mg PO HS 05/17/20 01/05/21 Ondansetron [Zofran ODT] 4 mg PO Q8HR PRN 05/17/20 01/05/21 Vitamin C/Biotin [Hair, Skin and 2 tab PO HS 05/17/20 01/05/21 Nails] hydrOXYzine pamoate [Vistaril] 100 mg PO TID PRN 05/17/20 01/05/21 oxyCODONE HCL/ACETAMINOPHEN 1 tab PO TID PRN 05/17/20 01/05/21 [Percocet 7.5-325 mg] Apixaban [Eliquis] 5 mg PO BID 08/07/20 01/05/21 Gabapentin Solution 250mg/5ml 1,000 mg PO Q6H PRN 08/07/20 01/05/21 Previous Rx's Medication Instructions Recorded Cephalexin [Keflex] 500 mg PO BID 5 Days #10 cap 08/20/20 Pantoprazole [Protonix] 40 mg PO DAILY 14 Days #14 08/20/20 tablet. Metoclopramide [Reglan] 10 mg PO TID PRN #15 tab 09/19/20 cephALEXin [Keflex] 500 mg PO Q6HR 7 Days #28 cap 11/09/20 Cephalexin [Keflex] 500 mg PO Q6H #28 cap 12/14/20 Promethazine Suppository 25 mg RECTAL QID #28 supp 12/14/20 [Phenergan] Allergies Allergy/AdvReac Type Severity Reaction Status Date / Time adalimumab [From Humira] Allergy RASH/NAUSEA/VOMITING/JOINT Verified 01/10/21 02:14 PAIN amoxicillin trihydrate Allergy Rash/Hives Verified 01/10/21 02:14 [From Augmentin] potassium clavulanate Allergy Rash/Hives Verified 01/10/21 02:14 [From Augmentin] Review of Systems ROS Statement: Those systems with pertinent positive or pertinent negative responses have been documented in the HPI. ROS Other: All systems not noted in ROS Statement are negative. Past Medical History Past Medical History: No Reported History Additional Past Medical History / Comment(s): crohns, IBD, colitis dx of crohns at age 10. History of Any Multi-Drug Resistant Organisms: C-DIFF, MRSA Date of last positivie culture/infection: 2002, Jul 2019 cdiff MDRO Source:: Hip Past Surgical History: Bowel Resection, Cholecystectomy Additional Past Surgical History / Comment(s): wisdom teeth, bowel resection x 2 in 2017, sepsis after first surgery, 2 PICC lines removed, Port removed Past Anesthesia/Blood Transfusion Reactions: No Reported Reaction Past Psychological History: Anxiety, Bipolar, Depression, PTSD Smoking Status: Never smoker Past Alcohol Use History: None Reported Past Drug Use History: None Reported - Past Family History Mother Family Medical History: Cancer Father Family Medical History: No Reported History General Exam Limitations: no limitations General appearance: alert, in no apparent distress Head exam: Present: atraumatic, normocephalic, normal inspection Eye exam: Present: normal appearance, PERRL, EOMI. Absent: scleral icterus, conjunctival injection, periorbital swelling ENT exam: Present: normal exam, mucous membranes moist Neck exam: Present: normal inspection. Absent: tenderness, meningismus, lymphadenopathy Respiratory exam: Present: normal lung sounds bilaterally. Absent: respiratory distress, wheezes, rales, rhonchi, stridor Cardiovascular Exam: Present: regular rate, normal rhythm, normal heart sounds. Absent: systolic murmur, diastolic murmur, rubs, gallop, clicks GI/Abdominal exam: Present: soft, tenderness, normal bowel sounds. Absent: distended, guarding, rebound, rigid Extremities exam: Present: normal inspection, full ROM, normal capillary refill. Absent: tenderness, pedal edema, joint swelling, calf tenderness Back exam: Present: normal inspection Neurological exam: Present: alert, oriented X3, CN II-XII intact Psychiatric exam: Present: normal affect, normal mood Skin exam: Present: warm, dry, intact, normal color. Absent: rash Course Vital Signs 01/10/21 01/10/21 02:10 05:04 Temperature 97.9 F Pulse Rate 110 H 101 H Respiratory 24 18 Rate Blood Pressure 115/81 114/69 O2 Sat by Pulse 100 99 Oximetry - Reevaluation(s) Reevaluation #1: Medical record is reviewed Patient has significant improvement in symptoms here in the ER Spoke patient regarding findings at length and questions are answered Medical Decision Making - Medical Decision Making 25 female DF for evaluation patient presents today for evaluation of severe abdominal pain about pain nausea vomiting diarrhea Crohn's exacerbation. Symptoms improved and patient can be discharged home - Lab Data Result diagrams: 01/10/21 03:09 01/10/21 03:09 Lab Results 01/10/21 01/10/21 01/10/21 Range/Units 03:09 03:09 03:09 WBC 7.0 (3.8-10.6) k/uL RBC 5.14 (3.80-5.40) m/uL Hgb 15.0 (11.4-16.0) gm/dL Hct 45.7 (34.0-46.0) % MCV 88.8 (80.0-100.0) fL MCH 29.2 (25.0-35.0) pg MCHC 32.9 (31.0-37.0) g/dL RDW 12.9 (11.5-15.5) % Plt Count 303 (150-450) k/uL MPV 7.2 Neutrophils % 46 % Lymphocytes % 42 % Monocytes % 5 % Eosinophils % 3 % Basophils % 1 % Neutrophils # 3.2 (1.3-7.7) k/uL Lymphocytes # 3.0 (1.0-4.8) k/uL Monocytes # 0.4 (0-1.0) k/uL Eosinophils # 0.2 (0-0.7) k/uL Basophils # 0.1 (0-0.2) k/uL Sodium 136 L (137-145) mmol/L Potassium 4.4 (3.5-5.1) mmol/L Chloride 106 (98-107) mmol/L Carbon Dioxide 19 L (22-30) mmol/L Anion Gap 11 mmol/L BUN 12 (7-17) mg/dL Creatinine 0.61 (0.52-1.04) mg/dL Est GFR (CKD-EPI)AfAm >90 (>60 ml/min/1.73 sqM) Est GFR (CKD-EPI)NonAf >90 (>60 ml/min/1.73 sqM) Glucose 103 H (74-99) mg/dL Plasma Lactic Acid Rehan 1.2 (0.7-2.0) mmol/L Calcium 9.8 (8.4-10.2) mg/dL Phosphorus 4.3 (2.5-4.5) mg/dL Magnesium 2.0 (1.6-2.3) mg/dL Total Bilirubin 0.6 (0.2-1.3) mg/dL AST 38 H (14-36) U/L ALT 43 H (4-34) U/L Alkaline Phosphatase 74 (38-126) U/L Creatine Kinase 67 (30-135) U/L Troponin I (0.000-0.034) ng/mL Total Protein 8.2 (6.3-8.2) g/dL Albumin 5.0 (3.5-5.0) g/dL 01/10/21 Range/Units 03:09 WBC (3.8-10.6) k/uL RBC (3.80-5.40) m/uL Hgb (11.4-16.0) gm/dL Hct (34.0-46.0) % MCV (80.0-100.0) fL MCH (25.0-35.0) pg MCHC (31.0-37.0) g/dL RDW (11.5-15.5) % Plt Count (150-450) k/uL MPV Neutrophils % % Lymphocytes % % Monocytes % % Eosinophils % % Basophils % % Neutrophils # (1.3-7.7) k/uL Lymphocytes # (1.0-4.8) k/uL Monocytes # (0-1.0) k/uL Eosinophils # (0-0.7) k/uL Basophils # (0-0.2) k/uL Sodium (137-145) mmol/L Potassium (3.5-5.1) mmol/L Chloride (98-107) mmol/L Carbon Dioxide (22-30) mmol/L Anion Gap mmol/L BUN (7-17) mg/dL Creatinine (0.52-1.04) mg/dL Est GFR (CKD-EPI)AfAm (>60 ml/min/1.73 sqM) Est GFR (CKD-EPI)NonAf (>60 ml/min/1.73 sqM) Glucose (74-99) mg/dL Plasma Lactic Acid Rehan (0.7-2.0) mmol/L Calcium (8.4-10.2) mg/dL Phosphorus (2.5-4.5) mg/dL Magnesium (1.6-2.3) mg/dL Total Bilirubin (0.2-1.3) mg/dL AST (14-36) U/L ALT (4-34) U/L Alkaline Phosphatase (38-126) U/L Creatine Kinase (30-135) U/L Troponin I <0.012 (0.000-0.034) ng/mL Total Protein (6.3-8.2) g/dL Albumin (3.5-5.0) g/dL - Radiology Data Radiology results: report reviewed (X-ray abdominal series and chest is negative for acute disease), image reviewed Disposition Clinical Impression: Nausea and vomiting, Crohn disease, Intractable vomiting with nausea, Abdominal pain Disposition: HOME SELF-CARE Condition: Good Instructions (If sedation given, give patient instructions): Abdominal Pain (ED) Is patient prescribed a controlled substance at d/c from ED?: No Referrals: Charlotte Slade MD [Primary Care Provider] - 1-2 days
[2021-01-10 03:18] LABS: Basophils # (A) 0.1 k/uL (0-0.2); Basophils % (A) 1 %; Eosinophils # (A) 0.2 k/uL (0-0.7); Eosinophils % (A) 3 %; HCT 45.7 % (34.0-46.0); Lymphocytes % (A) 42 %; MCH 29.2 pg (25.0-35.0); MCHC 32.9 g/dL (31.0-37.0); MCV 88.8 fL (80.0-100.0); Mean Platelet Volume 7.2; Monocytes # (A) 0.4 k/uL (0-1.0); Monocytes % (A) 5 %; Neutrophils # (A) 3.2 k/uL (1.3-7.7); Neutrophils % (A) 46 %; Platelet Count 303 k/uL (150-450); RBC 5.14 m/uL (3.80-5.40); RDW 12.9 % (11.5-15.5)
[2021-01-10 03:31] LABS: ALT 43 U/L (4-34); AST 38 U/L (14-36); African American GFR (CKD) >90 (>60 ml/min/1.73 sqM); Alkaline Phosphatase 74 U/L (38-126); Anion Gap 11 mmol/L; Blood Urea Nitrogen 12 mg/dL (7-17); Calcium 9.8 mg/dL (8.4-10.2); Carbon Dioxide 19 mmol/L (22-30); Chloride 106 mmol/L (98-107); Creatine Kinase 67 U/L (30-135); Glucose 103 mg/dL (74-99); Non-African American GFR(CKD) >90 (>60 ml/min/1.73 sqM); Phosphorus 4.3 mg/dL (2.5-4.5); Potassium 4.4 mmol/L (3.5-5.1); Sodium 136 mmol/L (137-145); Total Bilirubin 0.6 mg/dL (0.2-1.3); Total Protein 8.2 g/dL (6.3-8.2)
--- NOTE | 2021-01-10 04:14 | XR ---
EXAM: XR Abdomen, 2 Views and XR Chest, 1 View CLINICAL HISTORY: ITS.REASON XR Reason: pain TECHNIQUE: Frontal view of the chest, frontal view of the abdomen/pelvis and upright or decubitus view of the abdomen. COMPARISON: No relevant prior studies available. FINDINGS: Lungs: No consolidation or mass. Pleural space: No effusion. Heart: No cardiomegaly. Mediastinum: Unremarkable. Intraperitoneal space: No free air. Gastrointestinal tract: Unremarkable. No dilation. Bones/joints: No acute fracture. No dislocation. IMPRESSION: No acute findings.
[2021-01-10 05:06] VITALS: BP 114/69; PULSE 101; RESP 18
== END 2021-01-10 05:06 | disposition home or self-care (01) ==
LOC: EC 02:07
DX: K50.90 Crohn's disease, unspecified, without complications (principal); F32.9 Major depressive disorder, single episode, unspecified; Z90.49 Acquired absence of other specified parts of digestive tract
CPT/HCPCS: 99284; 96374; 96375 ×3; 80053; 82550; 83605; 83735; 84100; 84484; 85025; 74022; 96376; 96361 ×2; J2060; J2405; J1170; C9113; 36415; 81241

== ENCOUNTER → 2021-01-31 | Outpatient (CLI) | payer MEDICARE, OTHER ==
[2021-01-31 19:35] LABS: Basophils # (A) 0.03 X 10*3/uL (0.00-0.10); Basophils % (A) 0.5 %; Eosinophils # (A) 0.08 X 10*3/uL (0.04-0.35); Eosinophils % (A) 1.4 %; HCT 39.9 % (37.2-46.3); Lymphocytes # (A) 2.43 X 10*3/uL (0.90-5.00); MCH 29.6 pg (27.0-32.0); MCHC 32.6 g/dL (32.0-37.0); MCV 90.9 fL (80.0-97.0); Mean Platelet Volume 11.1 fL (9.5-12.2); Monocytes # (A) 0.34 X 10*3/uL (0.20-1.00); Monocytes % (A) 5.9 %; Neutrophils # (A) 2.89 X 10*3/uL (1.80-7.70); Platelet Count 237 X 10*3/uL (140-440); RBC 4.39 X 10*6/uL (4.10-5.20); RDW 12.9 % (11.5-14.5); WBC 5.78 X 10*3/uL (4.50-10.00)
[2021-01-31 23:35] LABS: INR 0.99 (0.90-1.11); Partial Thromboplastin Time 26.2 sec (23.5-31.0); Prothrombin Time 10.8 sec (9.9-11.9)
[2021-02-02 10:16] LABS: Anti-Thrombin III Activity 107 % (79-109)
== END | disposition home or self-care (01) ==
LOC: LABWHC1 12:45
PROVIDERS: ATTEND Family Medicine
DX: Z83.2 Family history of diseases of the blood and blood-forming organs and certain disorders involving the immune mechanism (principal)
CPT/HCPCS: 36415; 81241; 85025; 85300; 85303; 85306; 85610; 85730

== ENCOUNTER 2021-02-02 19:19 | Emergency (ER) | payer MEDICARE, OTHER ==
[2021-02-02 19:33] VITALS: BP 114/87; PULSE 73; RESP 16; TEMP 98.2
--- NOTE | 2021-02-02 19:53 | ED ---
Abdominal Pain HPI - General Chief Complaint: Abdominal Pain Stated Complaint: Sangeetha's Flareup Time Seen by Provider: 02/02/21 19:36 Source: patient, RN notes reviewed Mode of arrival: wheelchair Limitations: no limitations - History of Present Illness Initial Comments: 25-year-old white female patient, alert and oriented 4, presents to the emergency room with complaints of nausea vomiting and diarrhea today. Patient states that has vomited 15 times with bile and mucus. Also having diarrhea that is watery with some mucus. Patient states has history of Crohn's and this is a Crohn's flare. PICC line placed yesterday for IV fluids twice a week. Patient had colon resection April 2017. Her GI doctor is Dr. Mazariegos out of [place]. She called him today and was told that she has an appointment for February 18 and if she is worse to come to the emergency room. Patient tried Zofran at home at 8 AM with no relief. Patient was seen here today and received 2 L of IV fluids however still has nausea vomiting with diarrhea and left lower quadrant pain. Patient denies any fevers, chest pain or shortness of breath. Patient does have chills, some dizziness but denies any syncopal episodes. MD Complaint: abdominal pain -: days(s) (2) Location: LLQ Radiation: none Severity: severe Severity scale (1-10): 8 Consistency: constant Improves With: nothing Worsens With: bowel movement, vomiting Context: recent surgery/procedure (PICC line placed yesterday right upper arm), other (Crohn's disease) Associated Symptoms: nausea, vomiting, diarrhea, chills Treatments Prior to Arrival: other (Zofran this morning at 8 AM; 2 L normal saline bolus today in the hospital) - Related Data Home Medications Medication Instructions Recorded Confirmed Medroxyprogesterone Acetate 150 mg IM Q90D 03/10/18 01/29/21 [Depo-Provera] Lurasidone [Latuda] 80 mg PO HS 03/07/19 01/29/21 Benztropine Mesylate [Cogentin] 2 mg PO BID PRN 12/06/19 01/29/21 Ustekinumab [Stelara] 90 mg IM Q56D 12/06/19 01/29/21 Amphetamine [Adzenys Xr-Odt] 6.3 mg PO DAILY 05/17/20 01/29/21 Dicyclomine [Bentyl] 10 mg PO QID PRN 05/17/20 01/29/21 FLUoxetine HCL [PROzac Weekly] 90 mg PO WE 05/17/20 01/29/21 Fluticasone Nasal [place] [Flonase 1 spray EA NOSTRIL DAILY PRN 05/17/20 01/29/21 Nasal [place]] Loratadine [Claritin] 10 mg PO DAILY PRN 05/17/20 01/29/21 Metoclopramide HCl [Reglan] 10 mg PO Q6H PRN 05/17/20 01/29/21 Na Phos,M-B/Na Phos,Di-Ba [Fleet 133 ml RECTAL DAILY PRN 05/17/20 01/29/21 Adult] Omeprazole [PriLOSEC] 40 mg PO HS 05/17/20 01/29/21 Ondansetron [Zofran ODT] 4 mg PO Q8HR PRN 05/17/20 01/29/21 Vitamin C/Biotin [Hair, Skin and 2 tab PO HS 05/17/20 01/29/21 Nails] hydrOXYzine pamoate [Vistaril] 100 mg PO TID PRN 05/17/20 01/29/21 oxyCODONE HCL/ACETAMINOPHEN 1 tab PO TID PRN 05/17/20 01/29/21 [Percocet 7.5-325 mg] Amitriptyline HCl 50 mg PO HS 01/24/21 01/29/21 Gabapentin [Neurontin] 400 mg PO DAILY 01/24/21 01/29/21 Previous Rx's Medication Instructions Recorded Pantoprazole [Protonix] 40 mg PO DAILY 14 Days #14 08/20/20 tablet. Metoclopramide [Reglan] 10 mg PO TID PRN #15 tab 09/19/20 Promethazine Suppository 25 mg RECTAL QID #28 supp 12/14/20 [Phenergan] Allergies Allergy/AdvReac Type Severity Reaction Status Date / Time adalimumab [From Humira] Allergy RASH/NAUSEA/VOMITING/JOINT Verified 02/02/21 19:33 PAIN amoxicillin trihydrate Allergy Rash/Hives Verified 02/02/21 19:33 [From Augmentin] potassium clavulanate Allergy Rash/Hives Verified 02/02/21 19:33 [From Augmentin] Review of Systems ROS Statement: Those systems with pertinent positive or pertinent negative responses have been documented in the HPI. ROS Other: All systems not noted in ROS Statement are negative. 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, MRSA Date of last positivie culture/infection: 2002, Jul 2019 cdiff MDRO Source:: Hip Past Surgical History: Bowel Resection, Cholecystectomy Additional Past Surgical History / Comment(s): wisdom teeth, bowel resection x 2 in 2017, sepsis after first surgery, 2 PICC lines removed, Port removed Past Anesthesia/Blood Transfusion Reactions: No Reported Reaction Past Psychological History: Anxiety, Bipolar, Depression, PTSD Smoking Status: Never smoker - Past Family History Mother Family Medical History: Cancer Father Family Medical History: No Reported History General Exam Limitations: no limitations General appearance: alert, in no apparent distress Head exam: Present: atraumatic, normocephalic, normal inspection Eye exam: Present: normal appearance, PERRL, EOMI. Absent: scleral icterus, conjunctival injection, nystagmus, periorbital swelling ENT exam: Present: normal exam, normal oropharynx, mucous membranes moist Neck exam: Present: normal inspection, full ROM. Absent: tenderness, meningismus, lymphadenopathy, thyromegaly Respiratory exam: Present: normal lung sounds bilaterally. Absent: respiratory distress, wheezes, rales, rhonchi, stridor, decreased breath sounds Cardiovascular Exam: Present: regular rate, normal rhythm, normal heart sounds. Absent: systolic murmur, diastolic murmur, rubs, gallop, clicks GI/Abdominal exam: Present: soft, tenderness (llq), normal bowel sounds, other (Midline abdominal scar). Absent: distended, guarding, rebound, rigid, pulsatil e mass Extremities exam: Present: normal inspection, full ROM, normal capillary refill. Absent: tenderness, pedal edema, joint swelling, calf tenderness Left General: Present: other (PICC line right upper arm, intact no signs of redness or erythema or swelling) Back exam: Present: normal inspection, full ROM. Absent: tenderness, CVA tenderness (R), CVA tenderness (L), muscle spasm, paraspinal tenderness, vertebral tenderness, rash noted Neurological exam: Present: alert, oriented X3, CN II-XII intact Psychiatric exam: Present: normal affect, normal mood Skin exam: Present: warm, dry, intact, normal color. Absent: rash, cyanosis, diaphoretic, erythema, petechiae, pallor, mottled Course Vital Signs 02/02/21 19:22 Temperature 98.2 F Pulse Rate 73 Respiratory 16 Rate Blood Pressure 114/87 O2 Sat by Pulse 100 Oximetry Medical Decision Making - Medical Decision Making afebrile and 98.2 heart rate of 73 and blood pressure is 114/87. Potassium is 3.5 her sodium is 137, white count is 5.6 hemoglobin and hematocrit is 12.3 and 35.7 respectively. Abdomen is soft with tenderness in the left lower quadrant consistent with her Crohn's flare. Patient states did receive relief with IV fluids and medications however the pain is starting to come back. Patient is agreeable to getting another dose of Dilaudid and discharged home. She states she has Percocet at home for pain along with Zofran and Phenergan suppositories for nausea vomiting.. She will follow-up with follow-up with her primary care doctor next week as scheduled. Case discussed with Dr. Leon - Lab Data Result diagrams: 02/02/21 19:53 02/02/21 19:53 Lab Results 02/02/21 02/02/21 02/02/21 Range/Units 19:53 19:53 19:53 WBC 5.6 (3.8-10.6) k/uL RBC 4.02 (3.80-5.40) m/uL Hgb 12.3 (11.4-16.0) gm/dL Hct 35.7 (34.0-46.0) % MCV 89.0 (80.0-100.0) fL MCH 30.7 (25.0-35.0) pg MCHC 34.5 (31.0-37.0) g/dL RDW 12.6 (11.5-15.5) % Plt Count 197 (150-450) k/uL MPV 7.3 Neutrophils % 44 % Lymphocytes % 44 % Monocytes % 6 % Eosinophils % 3 % Basophils % 1 % Neutrophils # 2.5 (1.3-7.7) k/uL Lymphocytes # 2.5 (1.0-4.8) k/uL Monocytes # 0.3 (0-1.0) k/uL Eosinophils # 0.2 (0-0.7) k/uL Basophils # 0.0 (0-0.2) k/uL Sodium 137 (137-145) mmol/L Potassium 3.5 (3.5-5.1) mmol/L Chloride 106 (98-107) mmol/L Carbon Dioxide 25 (22-30) mmol/L Anion Gap 6 mmol/L BUN 7 (7-17) mg/dL Creatinine 0.57 (0.52-1.04) mg/dL Est GFR (CKD-EPI)AfAm >90 (>60 ml/min/1.73 sqM) Est GFR (CKD-EPI)NonAf >90 (>60 ml/min/1.73 sqM) Glucose 92 (74-99) mg/dL Calcium 8.9 (8.4-10.2) mg/dL Total Bilirubin 0.2 (0.2-1.3) mg/dL AST 23 (14-36) U/L ALT 16 (4-34) U/L Alkaline Phosphatase 53 (38-126) U/L Total Protein 6.5 (6.3-8.2) g/dL Albumin 4.0 (3.5-5.0) g/dL Amylase 41 (30-110) U/L Lipase 30 (23-300) U/L Urine Color Yellow Urine Appearance Cloudy H (Clear) Urine pH 5.5 (5.0-8.0) Ur Specific [place] 1.035 (1.001-1.035) Urine Protein Trace H (Negative) Urine Glucose (UA) Negative (Negative) Urine Ketones Negative (Negative) Urine Blood Trace H (Negative) Urine Nitrite Negative (Negative) Urine Bilirubin Negative (Negative) Urine Urobilinogen <2.0 (<2.0) mg/dL Ur Leukocyte Esterase Moderate H (Negative) Urine RBC 1 (0-5) /hpf Urine WBC 5 (0-5) /hpf Ur Squamous Epith Cells 2 (0-4) /hpf Amorphous Sediment Rare H (None) /hpf Urine Bacteria Rare H (None) /hpf Hyaline Casts 1 (0-2) /lpf Urine Mucus Moderate H (None) /hpf Disposition Clinical Impression: Crohn's disease, Nausea and vomiting Disposition: HOME SELF-CARE Condition: Fair Additional Instructions: Take medication as previously prescribed, ice chips throughout the day to keep hydration. Follow-up with your primary care doctor in 1 week. Is patient prescribed a controlled substance at d/c from ED?: No Referrals: Charlotte Slade MD [Primary Care Provider] - 1-2 days Time of Disposition: 21:40
[2021-02-02] MEDS: METOCLOPRAMIDE 5 MG/ML 2 ML VIAL IVP STA (20:00)
[2021-02-02] MEDS: SODIUM CHLORIDE 0.9% 1,000 ML IV STA (20:01)
[2021-02-02] MEDS: HYDROmorphone 0.5 MG/0.5 ML SYRINGE IVP STA (20:02)
[2021-02-02 20:13] LABS: Basophils % (A) 1 %; Eosinophils # (A) 0.2 k/uL (0-0.7); Eosinophils % (A) 3 %; HCT 35.7 % (34.0-46.0); HGB 12.3 gm/dL (11.4-16.0); Lymphocytes # (A) 2.5 k/uL (1.0-4.8); Lymphocytes % (A) 44 %; MCH 30.7 pg (25.0-35.0); MCHC 34.5 g/dL (31.0-37.0); Mean Platelet Volume 7.3; Monocytes # (A) 0.3 k/uL (0-1.0); Monocytes % (A) 6 %; Neutrophils # (A) 2.5 k/uL (1.3-7.7); Neutrophils % (A) 44 %; Platelet Count 197 k/uL (150-450); RBC 4.02 m/uL (3.80-5.40); RDW 12.6 % (11.5-15.5); WBC 5.6 k/uL (3.8-10.6)
[2021-02-02 20:24] LABS: ALT 16 U/L (4-34); AST 23 U/L (14-36); African American GFR (CKD) >90 (>60 ml/min/1.73 sqM); Alkaline Phosphatase 53 U/L (38-126); Amylase 41 U/L (30-110); Anion Gap 6 mmol/L; Blood Urea Nitrogen 7 mg/dL (7-17); Calcium 8.9 mg/dL (8.4-10.2); Carbon Dioxide 25 mmol/L (22-30); Chloride 106 mmol/L (98-107); Glucose 92 mg/dL (74-99); Lipase 30 U/L (23-300); Non-African American GFR(CKD) >90 (>60 ml/min/1.73 sqM); Sodium 137 mmol/L (137-145); Total Bilirubin 0.2 mg/dL (0.2-1.3); Total Protein 6.5 g/dL (6.3-8.2)
[2021-02-02 20:25] LABS: Potassium 3.5 mmol/L (3.5-5.1)
--- NOTE | 2021-02-02 20:35 | XR ---
EXAMINATION TYPE: XR KUB DATE OF EXAM: 02/02/2021 COMPARISON: 01/10/2021 HISTORY: Abdominal pain TECHNIQUE: 2 views upright FINDINGS: There are a few intestinal fluid levels. There is no evidence of free air. Lung bases are c lear. There are no pathologic calcifications over the kidneys. Bony structures are intact. There is n o evidence of abdominal mass. IMPRESSION: There are some intestinal fluid levels that could relate to diarrhea or ileus. No free ai r. No dilated bowel seen.
[2021-02-02 20:58] LABS: Amorphous Sediment,Urine Rare /hpf; Appearance,Urine Cloudy (Clear); Bacteria,Urine Rare /hpf; Bilirubin,Urine Negative (Negative); Blood,Urine Trace (Negative); Color,Urine Yellow; Glucose,Urine (UA) Negative (Negative); Hyaline Casts,Urine 1 /lpf (0-2); Ketones,Urine Negative (Negative); Leukocyte Esterase,Urine Moderate (Negative); Mucus,Urine Moderate /hpf; Nitrite,Urine Negative (Negative); PH, Urine 5.5 (5.0-8.0); Protein,Urine Trace (Negative); RBC,Urine 1 /hpf (0-5); Specific Gravity,Urine 1.035 (1.001-1.035); Squamous Epithelial Cell,Urine 2 /hpf (0-4); Urobilinogen,Urine <2.0 mg/dL (<2.0); WBC,Urine 5 /hpf (0-5)
[2021-02-02] MEDS: HYDROmorphone 1 MG/ML 1 ML SYRINGE IVP STA (21:55)
== END 2021-02-02 22:05 | disposition home or self-care (01) ==
LOC: EC 19:19
DX: K50.90 Crohn's disease, unspecified, without complications (principal); R11.2 Nausea with vomiting, unspecified; F32.9 Major depressive disorder, single episode, unspecified; F41.9 Anxiety disorder, unspecified
CPT/HCPCS: 36415; 80053; 82150; 83690; 85025; 81001; 74018; 99284; 96374; 96375; 96376; 96361 ×2; J2765; J1170 ×2

== ENCOUNTER 2021-02-07 13:18 | Emergency (ER) | payer MEDICARE, OTHER ==
[2021-02-07 13:43] VITALS: TEMP 98.3
[2021-02-07] MEDS ORDERED: SODIUM CHLORIDE 0.9% 2,000 ML IV STA (14:32)
[2021-02-07] MEDS ORDERED: HYDROmorphone 1 MG/ML 1 ML SYRINGE IVP STA ×2 (14:33→15:52)
[2021-02-07 15:14] LABS: Basophils % (A) 1 %; Eosinophils # (A) 0.1 k/uL (0-0.7); Eosinophils % (A) 2 %; HCT 33.4 % (34.0-46.0); HGB 11.6 gm/dL (11.4-16.0); Lymphocytes # (A) 1.6 k/uL (1.0-4.8); Lymphocytes % (A) 32 %; MCH 30.8 pg (25.0-35.0); MCHC 34.8 g/dL (31.0-37.0); MCV 88.5 fL (80.0-100.0); Mean Platelet Volume 7.7; Monocytes # (A) 0.3 k/uL (0-1.0); Monocytes % (A) 5 %; Neutrophils % (A) 59 %; Platelet Count 176 k/uL (150-450); RBC 3.78 m/uL (3.80-5.40); RDW 12.8 % (11.5-15.5); WBC 5.1 k/uL (3.8-10.6)
[2021-02-07 15:16] LABS: ALT 13 U/L (4-34); AST 15 U/L (14-36); African American GFR (CKD) >90 (>60 ml/min/1.73 sqM); Albumin 3.4 g/dL (3.5-5.0); Alkaline Phosphatase 47 U/L (38-126); Anion Gap 6 mmol/L; Blood Urea Nitrogen 4 mg/dL (7-17); Calcium 8.8 mg/dL (8.4-10.2); Carbon Dioxide 25 mmol/L (22-30); Chloride 112 mmol/L (98-107); Glucose 89 mg/dL (74-99); Lipase 126 U/L (23-300); Non-African American GFR(CKD) >90 (>60 ml/min/1.73 sqM); Potassium 3.5 mmol/L (3.5-5.1); Sodium 143 mmol/L (137-145); Total Bilirubin <0.1 mg/dL (0.2-1.3); Total Protein 5.9 g/dL (6.3-8.2)
[2021-02-07 15:23] LABS: Appearance,Urine Cloudy (Clear); Bacteria,Urine Rare /hpf; Bilirubin,Urine Negative (Negative); Blood,Urine Negative (Negative); Color,Urine Light Yellow; Glucose,Urine (UA) Negative (Negative); Ketones,Urine Negative (Negative); Leukocyte Esterase,Urine Large (Negative); Mucus,Urine Rare /hpf; Nitrite,Urine Negative (Negative); PH, Urine 6.5 (5.0-8.0); Protein,Urine Negative (Negative); RBC,Urine 2 /hpf (0-5); Specific Gravity,Urine 1.009 (1.001-1.035); Squamous Epithelial Cell,Urine 8 /hpf (0-4); Urobilinogen,Urine <2.0 mg/dL (<2.0); WBC,Urine 76 /hpf (0-5)
--- NOTE | 2021-02-07 15:25 | ED ---
Abdominal Pain HPI - General Chief Complaint: Abdominal Pain Stated Complaint: Sangeetha's Flareup Time Seen by Provider: 02/07/21 14:13 Source: patient, RN notes reviewed Mode of arrival: ambulatory Limitations: no limitations - History of Present Illness Initial Comments: 25-year-old female presents emergency Department with chief complaint of abdominal pain, nausea vomiting diarrhea. Patient states she has Crohn's disease has had bowel resections in the past states that she is on still or states is not helping. She was chronic steroid dependent states that she's not respond steroids at this point. Patient states that she has a PICC line because she has twice weekly fluid infusions. She is scheduled see GI next week. Patient states that her nausea meds at home are not helping. Patient reports no fevers or chills. She states that she has no bleeding out of the usual for herself. - Related Data Home Medications Medication Instructions Recorded Confirmed Medroxyprogesterone Acetate 150 mg IM Q90D 03/10/18 01/29/21 [Depo-Provera] Lurasidone [Latuda] 80 mg PO HS 03/07/19 01/29/21 Benztropine Mesylate [Cogentin] 2 mg PO BID PRN 12/06/19 01/29/21 Ustekinumab [Stelara] 90 mg IM Q56D 12/06/19 01/29/21 Amphetamine [Adzenys Xr-Odt] 6.3 mg PO DAILY 05/17/20 01/29/21 Dicyclomine [Bentyl] 10 mg PO QID PRN 05/17/20 01/29/21 FLUoxetine HCL [PROzac Weekly] 90 mg PO WE 05/17/20 01/29/21 Fluticasone Nasal [place] [Flonase 1 spray EA NOSTRIL DAILY PRN 05/17/20 01/29/21 Nasal [place]] Loratadine [Claritin] 10 mg PO DAILY PRN 05/17/20 01/29/21 Metoclopramide HCl [Reglan] 10 mg PO Q6H PRN 05/17/20 01/29/21 Na Phos,M-B/Na Phos,Di-Ba [Fleet 133 ml RECTAL DAILY PRN 05/17/20 01/29/21 Adult] Omeprazole [PriLOSEC] 40 mg PO HS 05/17/20 01/29/21 Ondansetron [Zofran ODT] 4 mg PO Q8HR PRN 05/17/20 01/29/21 Vitamin C/Biotin [Hair, Skin and 2 tab PO HS 05/17/20 01/29/21 Nails] hydrOXYzine pamoate [Vistaril] 100 mg PO TID PRN 05/17/20 01/29/21 oxyCODONE HCL/ACETAMINOPHEN 1 tab PO TID PRN 05/17/20 01/29/21 [Percocet 7.5-325 mg] Amitriptyline HCl 50 mg PO HS 01/24/21 01/29/21 Gabapentin [Neurontin] 400 mg PO DAILY 01/24/21 01/29/21 Previous Rx's Medication Instructions Recorded Pantoprazole [Protonix] 40 mg PO DAILY 14 Days #14 08/20/20 tablet. Metoclopramide [Reglan] 10 mg PO TID PRN #15 tab 09/19/20 Promethazine Suppository 25 mg RECTAL QID #28 supp 12/14/20 [Phenergan] Prochlorperazine [Compazine] 10 mg PO Q8H #20 tab 02/07/21 Allergies Allergy/AdvReac Type Severity Reaction Status Date / Time adalimumab [From Humira] Allergy RASH/NAUSEA/VOMITING/JOINT Verified 02/07/21 13:43 PAIN amoxicillin trihydrate Allergy Rash/Hives Verified 02/07/21 13:43 [From Augmentin] potassium clavulanate Allergy Rash/Hives Verified 02/07/21 13:43 [From Augmentin] Review of Systems ROS Statement: Those systems with pertinent positive or pertinent negative responses have been documented in the HPI. ROS Other: All systems not noted in ROS Statement are negative. 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, MRSA Date of last positivie culture/infection: 2002, Jul 2019 cdiff MDRO Source:: Hip Past Surgical History: Bowel Resection, Cholecystectomy Additional Past Surgical History / Comment(s): wisdom teeth, bowel resection x 2 in 2017, sepsis after first surgery, 2 PICC lines removed, Port removed Past Anesthesia/Blood Transfusion Reactions: No Reported Reaction Past Psychological History: Anxiety, Bipolar, Depression, PTSD Smoking Status: Never smoker Past Alcohol Use History: None Reported - Past Family History Mother Family Medical History: Cancer Father Family Medical History: No Reported History General Exam Limitations: no limitations General appearance: alert, in no apparent distress Head exam: Present: atraumatic, normocephalic, normal inspection Respiratory exam: Present: normal lung sounds bilaterally. Absent: respiratory distress, wheezes, rales, rhonchi, stridor Cardiovascular Exam: Present: regular rate, normal rhythm, normal heart sounds. Absent: systolic murmur, diastolic murmur, rubs, gallop, clicks GI/Abdominal exam: Present: soft, tenderness, normal bowel sounds. Absent: distended, guarding, rebound, rigid Back exam: Absent: CVA tenderness (R), CVA tenderness (L) Course Vital Signs 02/07/21 02/07/21 13:39 15:28 Temperature 98.3 F Pulse Rate 97 83 Respiratory 20 18 Rate Blood Pressure 112/70 108/68 O2 Sat by Pulse 100 98 Oximetry Medical Decision Making - Medical Decision Making 25-year-old female presented from chief complaint of abdominal pain. Patient unable urinary tract infection. Patient has chronic abdominal issues related to her Crohn's. Patient was hydrated, given antiemetics and pain medication. Patient be discharged with follow-up with her GI physician. - Lab Data Result diagrams: 02/07/21 14:52 02/07/21 14:52 Lab Results 02/07/21 02/07/21 02/07/21 Range/Units 14:52 14:52 14:52 WBC 5.1 (3.8-10.6) k/uL RBC 3.78 L (3.80-5.40) m/uL Hgb 11.6 (11.4-16.0) gm/dL Hct 33.4 L (34.0-46.0) % MCV 88.5 (80.0-100.0) fL MCH 30.8 (25.0-35.0) pg MCHC 34.8 (31.0-37.0) g/dL RDW 12.8 (11.5-15.5) % Plt Count 176 (150-450) k/uL MPV 7.7 Neutrophils % 59 % Lymphocytes % 32 % Monocytes % 5 % Eosinophils % 2 % Basophils % 1 % Neutrophils # 3.0 (1.3-7.7) k/uL Lymphocytes # 1.6 (1.0-4.8) k/uL Monocytes # 0.3 (0-1.0) k/uL Eosinophils # 0.1 (0-0.7) k/uL Basophils # 0.0 (0-0.2) k/uL Sodium (137-145) mmol/L Potassium (3.5-5.1) mmol/L Chloride (98-107) mmol/L Carbon Dioxide (22-30) mmol/L Anion Gap mmol/L BUN (7-17) mg/dL Creatinine (0.52-1.04) mg/dL Est GFR (CKD-EPI)AfAm (>60 ml/min/1.73 sqM) Est GFR (CKD-EPI)NonAf (>60 ml/min/1.73 sqM) Glucose (74-99) mg/dL Plasma Lactic Acid Rehan (0.7-2.0) mmol/L Calcium (8.4-10.2) mg/dL Total Bilirubin (0.2-1.3) mg/dL AST (14-36) U/L ALT (4-34) U/L Alkaline Phosphatase (38-126) U/L Total Protein (6.3-8.2) g/dL Albumin (3.5-5.0) g/dL Lipase (23-300) U/L Urine Color Light Yellow Urine Appearance Cloudy H (Clear) Urine pH 6.5 (5.0-8.0) Ur Specific [place] 1.009 (1.001-1.035) Urine Protein Negative (Negative) Urine Glucose (UA) Negative (Negative) Urine Ketones Negative (Negative) Urine Blood Negative (Negative) Urine Nitrite Negative (Negative) Urine Bilirubin Negative (Negative) Urine Urobilinogen <2.0 (<2.0) mg/dL Ur Leukocyte Esterase Large H (Negative) Urine RBC 2 (0-5) /hpf Urine WBC 76 H (0-5) /hpf Ur Squamous Epith Cells 8 H (0-4) /hpf Urine Bacteria Rare H (None) /hpf Urine Mucus Rare H (None) /hpf Urine HCG, Qual Not Detected (Not Detectd) 06/16/21 06/16/21 Range/Units 14:52 14:52 WBC (3.8-10.6) k/uL RBC (3.80-5.40) m/uL Hgb (11.4-16.0) gm/dL Hct (34.0-46.0) % MCV (80.0-100.0) fL MCH (25.0-35.0) pg MCHC (31.0-37.0) g/dL RDW (11.5-15.5) % Plt Count (150-450) k/uL MPV Neutrophils % % Lymphocytes % % Monocytes % % Eosinophils % % Basophils % % Neutrophils # (1.3-7.7) k/uL Lymphocytes # (1.0-4.8) k/uL Monocytes # (0-1.0) k/uL Eosinophils # (0-0.7) k/uL Basophils # (0-0.2) k/uL Sodium 143 (137-145) mmol/L Potassium 3.5 (3.5-5.1) mmol/L Chloride 112 H (98-107) mmol/L Carbon Dioxide 25 (22-30) mmol/L Anion Gap 6 mmol/L BUN 4 L (7-17) mg/dL Creatinine 0.48 L (0.52-1.04) mg/dL Est GFR (CKD-EPI)AfAm >90 (>60 ml/min/1.73 sqM) Est GFR (CKD-EPI)NonAf >90 (>60 ml/min/1.73 sqM) Glucose 89 (74-99) mg/dL Plasma Lactic Acid Rehan 0.7 (0.7-2.0) mmol/L Calcium 8.8 (8.4-10.2) mg/dL Total Bilirubin <0.1 L (0.2-1.3) mg/dL AST 15 (14-36) U/L ALT 13 (4-34) U/L Alkaline Phosphatase 47 (38-126) U/L Total Protein 5.9 L (6.3-8.2) g/dL Albumin 3.4 L (3.5-5.0) g/dL Lipase 126 (23-300) U/L Urine Color Urine Appearance (Clear) Urine pH (5.0-8.0) Ur Specific [place] (1.001-1.035) Urine Protein (Negative) Urine Glucose (UA) (Negative) Urine Ketones (Negative) Urine Blood (Negative) Urine Nitrite (Negative) Urine Bilirubin (Negative) Urine Urobilinogen (<2.0) mg/dL Ur Leukocyte Esterase (Negative) Urine RBC (0-5) /hpf Urine WBC (0-5) /hpf Ur Squamous Epith Cells (0-4) /hpf Urine Bacteria (None) /hpf Urine Mucus (None) /hpf Urine HCG, Qual (Not Detectd) Disposition Clinical Impression: Crohn disease, Abdominal pain, Urinary tract infection Disposition: HOME SELF-CARE Condition: Stable Instructions (If sedation given, give patient instructions): Abdominal Pain (ED) Additional Instructions: Please return to the Emergency Department if symptoms worsen or any other concerns. Prescriptions: Prochlorperazine [Compazine] 10 mg PO Q8H #20 tab Is patient prescribed a controlled substance at d/c from ED?: No Referrals: Charlotte Slade MD [Primary Care Provider] - 1-2 days Time of Disposition: 15:54
[2021-02-07 15:29] VITALS: BP 108/68; PULSE 83; RESP 18
[2021-02-07] MEDS ORDERED: cefTRIAXone IN SWFI 1,000 MG/10 ML SYRINGE IVP STA (15:33)
[2021-02-07] MEDS ORDERED: diphenhydrAMINE 50 MG/ML 1 ML VIAL IVP STA (15:52)
== END 2021-02-07 16:30 | disposition home or self-care (01) ==
LOC: EC 13:18
DX: K50.90 Crohn's disease, unspecified, without complications (principal); N39.0 Urinary tract infection, site not specified; Z88.0 Allergy status to penicillin; Z88.8 Allergy status to other drugs, medicaments and biological substances; Z90.49 Acquired absence of other specified parts of digestive tract; Z79.899 Other long term (current) drug therapy
CPT/HCPCS: 36415; 80053; 83605; 83690; 85025; 81001; 81025; 87086; 99284; 96374; 96375; 96376; 96361; J1200; J0696; J1170; J1790

== ENCOUNTER 2021-02-10 22:02 | Emergency (ER) | payer MEDICARE, OTHER ==
[2021-02-10 22:11] VITALS: RESP 18; TEMP 98.2
[2021-02-10] MEDS ORDERED: SODIUM CHLORIDE 0.9% 1,000 ML IV STA (22:38)
[2021-02-10] MEDS ORDERED: METOCLOPRAMIDE 5 MG/ML 2 ML VIAL IVP STA (22:38)
[2021-02-10] MEDS ORDERED: HYDROmorphone 0.5 MG/0.5 ML SYRINGE IVP STA ×2 (22:38→23:38)
--- NOTE | 2021-02-10 22:44 | ED ---
Nausea/Vomiting/Diarrhea HPI - General Chief complaint: Nausea/Vomiting/Diarrhea Stated complaint: Abd pain, vomiting Time Seen by Provider: 02/10/21 22:24 Source: patient, family Mode of arrival: ambulatory Limitations: no limitations - History of Present Illness Initial comments: Patient is 25-year-old woman presenting with complaint of nausea, vomiting, generalized abdominal pain. The patient states this is consistent with her abdominal hyper algesia. The patient had developed some vomiting after she took medication given for urinary tract infection and then not able to keep down fluids or medication. MD complaint: nausea, vomiting, abdominal pain Onset/Timin -: days(s) Description of Vomiting: food contents Associated Abdominal Pain: Yes Location: diffuse Severity: moderate Quality: cramping Consistency: constant Improves with: none Worsens with: none Associated Symptoms: nausea/vomiting - Related Data Home Medications Medication Instructions Recorded Confirmed Medroxyprogesterone Acetate 150 mg IM Q90D 03/10/18 02/08/21 [Depo-Provera] Lurasidone [Latuda] 80 mg PO HS 03/07/19 02/08/21 Benztropine Mesylate [Cogentin] 2 mg PO BID PRN 12/06/19 02/08/21 Ustekinumab [Stelara] 90 mg IM Q56D 12/06/19 02/08/21 Amphetamine [Adzenys Xr-Odt] 6.3 mg PO DAILY 05/17/20 02/08/21 Dicyclomine [Bentyl] 10 mg PO QID PRN 05/17/20 02/08/21 FLUoxetine HCL [PROzac Weekly] 90 mg PO WE 05/17/20 02/08/21 Fluticasone Nasal [place] [Flonase 1 spray EA NOSTRIL DAILY PRN 05/17/20 02/08/21 Nasal [place]] Loratadine [Claritin] 10 mg PO DAILY PRN 05/17/20 02/08/21 Metoclopramide HCl [Reglan] 10 mg PO Q6H PRN 05/17/20 02/08/21 Na Phos,M-B/Na Phos,Di-Ba [Fleet 133 ml RECTAL DAILY PRN 05/17/20 02/08/21 Adult] Omeprazole [PriLOSEC] 40 mg PO HS 05/17/20 02/08/21 Ondansetron [Zofran ODT] 4 mg PO Q8HR PRN 05/17/20 02/08/21 Vitamin C/Biotin [Hair, Skin and 2 tab PO HS 05/17/20 02/08/21 Nails] hydrOXYzine pamoate [Vistaril] 100 mg PO TID PRN 05/17/20 02/08/21 oxyCODONE HCL/ACETAMINOPHEN 1 tab PO TID PRN 05/17/20 02/08/21 [Percocet 7.5-325 mg] Amitriptyline HCl 50 mg PO HS 01/24/21 02/08/21 Gabapentin [Neurontin] 400 mg PO DAILY 01/24/21 02/08/21 Previous Rx's Medication Instructions Recorded Pantoprazole [Protonix] 40 mg PO DAILY 14 Days #14 08/20/20 tablet. Metoclopramide [Reglan] 10 mg PO TID PRN #15 tab 09/19/20 Promethazine Suppository 25 mg RECTAL QID #28 supp 12/14/20 [Phenergan] Cephalexin [Keflex] 500 mg PO Q8HR #40 cap 02/07/21 Prochlorperazine [Compazine] 10 mg PO Q8H #20 tab 02/07/21 Allergies Allergy/AdvReac Type Severity Reaction Status Date / Time adalimumab [From Humira] Allergy RASH/NAUSEA/VOMITING/JOINT Verified 02/10/21 22:11 PAIN amoxicillin trihydrate Allergy Rash/Hives Verified 02/10/21 22:11 [From Augmentin] potassium clavulanate Allergy Rash/Hives Verified 02/10/21 22:11 [From Augmentin] Review of Systems ROS Statement: Those systems with pertinent positive or pertinent negative responses have been documented in the HPI. ROS Other: All systems not noted in ROS Statement are negative. Constitutional: Denies: fever, chills Respiratory: Denies: cough, dyspnea Cardiovascular: Denies: chest pain, palpitations, edema Gastrointestinal: Reports: abdominal pain, nausea, vomiting. Denies: diarrhea, constipation, melena, hematochezia Genitourinary: Denies: dysuria, hematuria Musculoskeletal: Denies: back pain Skin: Denies: rash Neurological: Denies: headache, weakness 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, MRSA Date of last positivie culture/infection: 2002, Jul 2019 cdiff MDRO Source:: Hip Past Surgical History: Bowel Resection, Cholecystectomy Additional Past Surgical History / Comment(s): wisdom teeth, bowel resection x 2 in 2017, sepsis after first surgery, 2 PICC lines removed, Port removed Past Anesthesia/Blood Transfusion Reactions: No Reported Reaction Past Psychological History: Anxiety, Bipolar, Depression, PTSD Smoking Status: Never smoker Past Alcohol Use History: None Reported Past Drug Use History: None Reported - Past Family History Mother Family Medical History: Cancer Father Family Medical History: No Reported History General Exam Limitations: no limitations General appearance: alert, in no apparent distress Head exam: Present: atraumatic, normocephalic Eye exam: Present: normal appearance ENT exam: Present: normal oropharynx, mucous membranes moist Respiratory exam: Present: normal lung sounds bilaterally. Absent: respiratory distress, wheezes, rales, rhonchi, stridor Cardiovascular Exam: Present: regular rate, normal rhythm, normal heart sounds. Absent: systolic murmur, diastolic murmur, rubs, gallop GI/Abdominal exam: Present: soft. Absent: distended, tenderness, guarding, rebound, rigid, mass Extremities exam: Present: normal inspection, normal capillary refill. Absent: pedal edema, calf tenderness Back exam: Present: normal inspection. Absent: CVA tenderness (R), CVA tenderness (L) Neurological exam: Present: alert Skin exam: Present: warm, dry, intact, normal color. Absent: rash Course Vital Signs 02/10/21 02/10/21 22:06 23:45 Temperature 98.2 F Pulse Rate 101 H 84 Respiratory 18 18 Rate Blood Pressure 103/74 114/71 O2 Sat by Pulse 99 100 Oximetry Medical Decision Making - Lab Data Result diagrams: 02/10/21 22:52 02/10/21 22:52 Lab Results 02/10/21 02/10/21 02/10/21 Range/Units 22:52 22:52 22:52 WBC 7.2 (3.8-10.6) k/uL RBC 3.93 (3.80-5.40) m/uL Hgb 12.2 (11.4-16.0) gm/dL Hct 34.5 (34.0-46.0) % MCV 87.7 (80.0-100.0) fL MCH 31.0 (25.0-35.0) pg MCHC 35.3 (31.0-37.0) g/dL RDW 13.0 (11.5-15.5) % Plt Count 194 (150-450) k/uL MPV 8.2 Neutrophils % 67 % Lymphocytes % 25 % Monocytes % 5 % Eosinophils % 1 % Basophils % 0 % Neutrophils # 4.8 (1.3-7.7) k/uL Lymphocytes # 1.8 (1.0-4.8) k/uL Monocytes # 0.4 (0-1.0) k/uL Eosinophils # 0.1 (0-0.7) k/uL Basophils # 0.0 (0-0.2) k/uL Sodium (137-145) mmol/L Potassium (3.5-5.1) mmol/L Chloride (98-107) mmol/L Carbon Dioxide (22-30) mmol/L Anion Gap mmol/L BUN (7-17) mg/dL Creatinine (0.52-1.04) mg/dL Est GFR (CKD-EPI)AfAm (>60 ml/min/1.73 sqM) Est GFR (CKD-EPI)NonAf (>60 ml/min/1.73 sqM) Glucose (74-99) mg/dL Calcium (8.4-10.2) mg/dL Total Bilirubin (0.2-1.3) mg/dL AST (14-36) U/L ALT (4-34) U/L Alkaline Phosphatase (38-126) U/L Total Protein (6.3-8.2) g/dL Albumin (3.5-5.0) g/dL Amylase (30-110) U/L Lipase (23-300) U/L Urine Color Yellow Urine Appearance Clear (Clear) Urine pH 7.0 (5.0-8.0) Ur Specific [place] 1.017 (1.001-1.035) Urine Protein Negative (Negative) Urine Glucose (UA) Negative (Negative) Urine Ketones 3+ H (Negative) Urine Blood Negative (Negative) Urine Nitrite Negative (Negative) Urine Bilirubin Negative (Negative) Urine Urobilinogen <2.0 (<2.0) mg/dL Ur Leukocyte Esterase Moderate H (Negative) Urine RBC 1 (0-5) /hpf Urine WBC 32 H (0-5) /hpf Ur Squamous Epith Cells 5 H (0-4) /hpf Urine Mucus Moderate H (None) /hpf Urine HCG, Qual Not Detected (Not Detectd) 02/10/21 Range/Units 22:52 WBC (3.8-10.6) k/uL RBC (3.80-5.40) m/uL Hgb (11.4-16.0) gm/dL Hct (34.0-46.0) % MCV (80.0-100.0) fL MCH (25.0-35.0) pg MCHC (31.0-37.0) g/dL RDW (11.5-15.5) % Plt Count (150-450) k/uL MPV Neutrophils % % Lymphocytes % % Monocytes % % Eosinophils % % Basophils % % Neutrophils # (1.3-7.7) k/uL Lymphocytes # (1.0-4.8) k/uL Monocytes # (0-1.0) k/uL Eosinophils # (0-0.7) k/uL Basophils # (0-0.2) k/uL Sodium 140 (137-145) mmol/L Potassium 3.5 (3.5-5.1) mmol/L Chloride 108 H (98-107) mmol/L Carbon Dioxide 25 (22-30) mmol/L Anion Gap 7 mmol/L BUN 3 L (7-17) mg/dL Creatinine 0.39 L (0.52-1.04) mg/dL Est GFR (CKD-EPI)AfAm >90 (>60 ml/min/1.73 sqM) Est GFR (CKD-EPI)NonAf >90 (>60 ml/min/1.73 sqM) Glucose 90 (74-99) mg/dL Calcium 8.9 (8.4-10.2) mg/dL Total Bilirubin 0.2 (0.2-1.3) mg/dL AST 18 (14-36) U/L ALT 12 (4-34) U/L Alkaline Phosphatase 57 (38-126) U/L Total Protein 6.1 L (6.3-8.2) g/dL Albumin 3.7 (3.5-5.0) g/dL Amylase 55 (30-110) U/L Lipase 62 (23-300) U/L Urine Color Urine Appearance (Clear) Urine pH (5.0-8.0) Ur Specific [place] (1.001-1.035) Urine Protein (Negative) Urine Glucose (UA) (Negative) Urine Ketones (Negative) Urine Blood (Negative) Urine Nitrite (Negative) Urine Bilirubin (Negative) Urine Urobilinogen (<2.0) mg/dL Ur Leukocyte Esterase (Negative) Urine RBC (0-5) /hpf Urine WBC (0-5) /hpf Ur Squamous Epith Cells (0-4) /hpf Urine Mucus (None) /hpf Urine HCG, Qual (Not Detectd) Disposition Clinical Impression: Nausea and vomiting, Abdominal pain Disposition: HOME SELF-CARE Condition: Good Instructions (If sedation given, give patient instructions): Acute Nausea and Vomiting (ED), Abdominal Pain (ED) Additional Instructions: As we discussed, follow with your physician for the urine culture results to find the antibiotic coverage. Is patient prescribed a controlled substance at d/c from ED?: No Referrals: Charlotte Slade MD [Primary Care Provider] - 1-2 days
[2021-02-10] MEDS ORDERED: HEPARIN SODIUM 1,000 UN/ML (10ML VL) IVP STA (22:48)
[2021-02-10 23:13] LABS: Basophils % (A) 0 %; Eosinophils # (A) 0.1 k/uL (0-0.7); Eosinophils % (A) 1 %; HCT 34.5 % (34.0-46.0); HGB 12.2 gm/dL (11.4-16.0); Lymphocytes # (A) 1.8 k/uL (1.0-4.8); Lymphocytes % (A) 25 %; MCHC 35.3 g/dL (31.0-37.0); MCV 87.7 fL (80.0-100.0); Mean Platelet Volume 8.2; Monocytes # (A) 0.4 k/uL (0-1.0); Monocytes % (A) 5 %; Neutrophils # (A) 4.8 k/uL (1.3-7.7); Neutrophils % (A) 67 %; Platelet Count 194 k/uL (150-450); RBC 3.93 m/uL (3.80-5.40); WBC 7.2 k/uL (3.8-10.6)
[2021-02-10 23:24] LABS: Appearance,Urine Clear (Clear); Bilirubin,Urine Negative (Negative); Blood,Urine Negative (Negative); Color,Urine Yellow; Glucose,Urine (UA) Negative (Negative); Ketones,Urine 3+ (Negative); Leukocyte Esterase,Urine Moderate (Negative); Mucus,Urine Moderate /hpf; Nitrite,Urine Negative (Negative); Protein,Urine Negative (Negative); RBC,Urine 1 /hpf (0-5); Specific Gravity,Urine 1.017 (1.001-1.035); Squamous Epithelial Cell,Urine 5 /hpf (0-4); Urobilinogen,Urine <2.0 mg/dL (<2.0); WBC,Urine 32 /hpf (0-5)
[2021-02-10 23:29] LABS: ALT 12 U/L (4-34); AST 18 U/L (14-36); African American GFR (CKD) >90 (>60 ml/min/1.73 sqM); Albumin 3.7 g/dL (3.5-5.0); Alkaline Phosphatase 57 U/L (38-126); Amylase 55 U/L (30-110); Anion Gap 7 mmol/L; Blood Urea Nitrogen 3 mg/dL (7-17); Calcium 8.9 mg/dL (8.4-10.2); Carbon Dioxide 25 mmol/L (22-30); Chloride 108 mmol/L (98-107); Glucose 90 mg/dL (74-99); Lipase 62 U/L (23-300); Non-African American GFR(CKD) >90 (>60 ml/min/1.73 sqM); Potassium 3.5 mmol/L (3.5-5.1); Sodium 140 mmol/L (137-145); Total Bilirubin 0.2 mg/dL (0.2-1.3); Total Protein 6.1 g/dL (6.3-8.2)
[2021-02-10] MEDS ORDERED: LORazepam 2 MG/ML INJ IV STA (23:38)
[2021-02-11] MEDS ORDERED: HYDROmorphone 0.5 MG/0.5 ML SYRINGE IVP STA (00:30)
[2021-02-11 00:34] VITALS: BP 100/73; PULSE 94
== END 2021-02-11 00:43 | disposition home or self-care (01) ==
LOC: EC 22:02
DX: R11.2 Nausea with vomiting, unspecified (principal); R10.84 Generalized abdominal pain; F31.9 Bipolar disorder, unspecified; F41.9 Anxiety disorder, unspecified; Z79.3 Long term (current) use of hormonal contraceptives; Z79.899 Other long term (current) drug therapy; Z88.0 Allergy status to penicillin; Z88.1 Allergy status to other antibiotic agents; Z90.49 Acquired absence of other specified parts of digestive tract
CPT/HCPCS: 96374 ×2; 96375 ×4; 96376 ×3; 96361 ×2; 99284 ×2; 36415; 80053; 82150; 83690; 85025; 81001; 81025; 87086; J2060; J2765; J1642; J1170 ×2

== ENCOUNTER 2021-03-12 22:12 | Emergency (ER) | payer MEDICARE, OTHER ==
[2021-03-12 22:23] VITALS: RESP 18
[2021-03-12] MEDS ORDERED: ONDANSETRON 4 MG/2 ML VIAL IVP STA (23:16)
[2021-03-12] MEDS ORDERED: HYDROmorphone 1 MG/ML 1 ML SYRINGE IVP STA (23:16)
--- NOTE | 2021-03-13 00:15 | XR ---
EXAMINATION TYPE: XR chest 1V DATE OF EXAM: 03/12/2021 COMPARISON: 01/10/2021 HISTORY: PICC line placement TECHNIQUE: FINDINGS: Heart and mediastinum are normal. Lungs are clear. There is right central venous catheter w ith tip in the superior vena cava. No pneumothorax. Bony thorax is intact. IMPRESSION: Catheter in good position. No cardiopulmonary disease.
--- NOTE | 2021-03-13 01:12 | US ---
EXAMINATION TYPE: US venous doppler duplex UE RT DATE OF EXAM: 03/13/2021 COMPARISON: US CLINICAL HISTORY: Right arm pain; hx DVT; PICC Line. Right arm pain. Hx of DVT. Patient has PICC line . PICC was placed about 2 months ago. SIDE PERFORMED: Right Arm. Right Arm: There appear to be internal echoes adjacent to the PICC line within the basilic vein. Por tions of this vein do not appear to compress completely. Color defect is shown. Difficult to compress axillary vein due to patient's pain tolerance. Color flow is shown. Limited exam due to bandage. IMPRESSION: Limited exam does not show evidence of deep vein thrombosis in the right arm. There is some superfici al vein thrombosis.
[2021-03-13] MEDS ORDERED: HYDROmorphone 1 MG/ML 1 ML SYRINGE IVP STA (01:34)
--- NOTE | 2021-03-13 01:42 | ED ---
General Adult HPI - General Chief complaint: Abdominal Pain Stated complaint: picc line issues, chest pain Time Seen by Provider: 03/12/21 22:48 Source: patient Mode of arrival: ambulatory Limitations: no limitations - History of Present Illness Initial comments: 25 year-old male patient presents to the emergency department for evaluation of right upper arm pain. She has a PICC line for outpatient fluid infusions. States when they changed the dressing last time the PICC line pulled out a little bit. States that the nurse cleansed the area and "shoved" the line back into her arm. States since then she has been having a lot of pain to the area. States she is concerned because she had DVT with her previous PICC line. She denies any swelling to the arm. Denies any fever or chills. States she has had some chest pain. States she is having some abdominal pain but it is not unusual for her with history of Crohns. Patient denies any recent rash, cough, shortness of breath, chest pain, nausea, vomiting, diarrhea, constipation, back pain, numbness, tingling, dizziness, weakness, hematuria, dysuria, urinary urgency, urinary frequency, headache, visual changes, or any other complaints. - Related Data Home Medications Medication Instructions Recorded Confirmed Medroxyprogesterone Acetate 150 mg IM Q90D 03/10/18 03/08/21 [Depo-Provera] Lurasidone [Latuda] 80 mg PO HS 03/07/19 03/08/21 Benztropine Mesylate [Cogentin] 2 mg PO BID PRN 12/06/19 03/08/21 Ustekinumab [Stelara] 90 mg IM Q56D 12/06/19 03/08/21 Amphetamine [Adzenys Xr-Odt] 6.3 mg PO DAILY 05/17/20 03/08/21 Dicyclomine [Bentyl] 10 mg PO QID PRN 05/17/20 03/08/21 FLUoxetine HCL [PROzac Weekly] 90 mg PO WE 05/17/20 03/08/21 Fluticasone Nasal [place] [Flonase 1 spray EA NOSTRIL DAILY PRN 05/17/20 03/08/21 Nasal [place]] Loratadine [Claritin] 10 mg PO DAILY PRN 05/17/20 03/08/21 Metoclopramide HCl [Reglan] 10 mg PO Q6H PRN 05/17/20 03/08/21 Na Phos,M-B/Na Phos,Di-Ba [Fleet 133 ml RECTAL DAILY PRN 05/17/20 03/08/21 Adult] Omeprazole [PriLOSEC] 40 mg PO HS 05/17/20 03/08/21 Ondansetron [Zofran ODT] 4 mg PO Q8HR PRN 05/17/20 03/08/21 Vitamin C/Biotin [Hair, Skin and 2 tab PO HS 05/17/20 03/08/21 Nails] hydrOXYzine pamoate [Vistaril] 100 mg PO TID PRN 05/17/20 03/08/21 oxyCODONE HCL/ACETAMINOPHEN 1 tab PO TID PRN 05/17/20 03/08/21 [Percocet 7.5-325 mg] Amitriptyline HCl 50 mg PO HS 01/24/21 03/08/21 Gabapentin [Neurontin] 400 mg PO DAILY 01/24/21 03/08/21 Previous Rx's Medication Instructions Recorded Pantoprazole [Protonix] 40 mg PO DAILY 14 Days #14 08/20/20 tablet. Metoclopramide [Reglan] 10 mg PO TID PRN #15 tab 09/19/20 Promethazine Suppository 25 mg RECTAL QID #28 supp 12/14/20 [Phenergan] Cephalexin [Keflex] 500 mg PO Q8HR #40 cap 02/07/21 Prochlorperazine [Compazine] 10 mg PO Q8H #20 tab 02/07/21 Allergies Allergy/AdvReac Type Severity Reaction Status Date / Time adalimumab [From Humira] Allergy RASH/NAUSEA/VOMITING/JOINT Verified 03/12/21 22:23 PAIN amoxicillin trihydrate Allergy Rash/Hives Verified 03/12/21 22:23 [From Augmentin] potassium clavulanate Allergy Rash/Hives Verified 03/12/21 22:23 [From Augmentin] Review of Systems ROS Statement: Those systems with pertinent positive or pertinent negative responses have been documented in the HPI. ROS Other: All systems not noted in ROS Statement are negative. 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, MRSA Date of last positivie culture/infection: 2002, Jul 2019 cdiff MDRO Source:: Hip Past Surgical History: Bowel Resection, Cholecystectomy Additional Past Surgical History / Comment(s): wisdom teeth, bowel resection x 2 in 2017, sepsis after first surgery, 2 PICC lines removed, Port removed Past Anesthesia/Blood Transfusion Reactions: No Reported Reaction Past Psychological History: Anxiety, Bipolar, Depression, PTSD Smoking Status: Never smoker Past Alcohol Use History: None Reported Past Drug Use History: None Reported - Past Family History Mother Family Medical History: Cancer Father Family Medical History: No Reported History General Exam Limitations: no limitations General appearance: alert, in no apparent distress, other (This is a well developed, well nourished adult female patient in no acute distress. V/S upon presentation are temperature 98.8 F, pulse 85, respiratory 18, BP 110/78, pulse ox 100% on room air. ) Respiratory exam: Present: normal lung sounds bilaterally. Absent: respiratory distress, wheezes, rales, rhonchi, stridor Cardiovascular Exam: Present: regular rate, normal rhythm, normal heart sounds. Absent: systolic murmur, diastolic murmur, rubs, gallop, clicks GI/Abdominal exam: Present: soft, tenderness (generalized tenderness), normal bowel sounds. Absent: distended, guarding, rebound, rigid Extremities exam: Present: normal inspection, full ROM, tenderness (right upper medial arm tenderness), normal capillary refill, other (Pulses 2+. No swelling.). Absent: pedal edema, joint swelling, calf tenderness Neurological exam: Present: alert, oriented X3, CN II-XII intact Psychiatric exam: Present: normal affect, normal mood Skin exam: Present: warm, dry, intact, normal color. Absent: rash Course Vital Signs 03/12/21 03/13/21 22:19 01:48 Temperature 98.8 F 98.1 F Pulse Rate 85 88 Respiratory 18 18 Rate Blood Pressure 110/78 111/67 O2 Sat by Pulse 100 97 Oximetry EKG Findings - EKG Comments: EKG Findings:: EKG obtained at 2240 shows normal sinus rhythm with a ventricular rate of 82, [place] interval 136, QRS duration 84, QT 370, QTC 432. No evidence of ST elevation or depression. Medical Decision Making - Medical Decision Making 25 year-old female patient presents to the emergency department for evaluation of right upper arm pain. She has PICC line in place. Physical exam is unremarkable. Chest xray shows good line placement. US right upper extremity shows superficial venous thrombosis. I did discuss findings with patient. She does need IV fluids and there is good patency of the line. She will be discharged to follow up with the physician who ordered the line. Return to emergency discuss in detail. She verbalizes understanding and agrees with this plan. Case discussed with my attending Dr. Hines. - Radiology Data Radiology results: report reviewed, image reviewed One view x-ray of the chest is obtained. Report was reviewed in its entirety. Impression by Dr. Sanford shows catheter in good position. No cardiopulmonary disease. Ultrasound right upper extremity is obtained. Report was reviewed in its enti rety. Impression by Dr. Sanford shows no evidence for deep vein thrombosis in the right arm. There are some superficial thrombosis. Disposition Clinical Impression: Superficial thrombophlebitis of right upper extremity Disposition: HOME SELF-CARE Condition: Good Instructions (If sedation given, give patient instructions): Superficial Thrombophlebitis (ED) Additional Instructions: Take all medication as directed. Apply warm compresses over the area. Follow- up with your doctor for further evaluation as soon as possible. Return for any new, worsening, or concerning symptoms. Is patient prescribed a controlled substance at d/c from ED?: No Referrals: Charlotte Slade MD [Primary Care Provider] - 1-2 days Time of Disposition: 01:41
[2021-03-13 01:53] VITALS: BP 111/67; PULSE 88; TEMP 98.1
== END 2021-03-13 01:51 | disposition home or self-care (01) ==
LOC: EC 22:12
DX: I80.8 Phlebitis and thrombophlebitis of other sites (principal); Z86.718 Personal history of other venous thrombosis and embolism; Z90.49 Acquired absence of other specified parts of digestive tract
CPT/HCPCS: 71045; 99284; 96375; 96374; 96376; J2405; J1170; 93005

== ENCOUNTER 2021-03-18 21:31 | Observation (INO) | payer MEDICARE, OTHER ==
[2021-03-18] MEDS ORDERED: MORPHINE SULFATE 4 MG/ML SYRINGE IV STA ×2 (22:17→23:33)
--- NOTE | 2021-03-18 23:40 | US ---
EXAMINATION TYPE: US venous doppler duplex UE RT DATE OF EXAM: 03/18/2021 COMPARISON: CLINICAL HISTORY: Possible DVT. PICC line in right arm. Patient states having pain in axilla region. Not on blood thinners. SIDE PERFORMED: Right Right Arm: Picc line visualized with vascular flow within surrounding line. Possible echogenic area/ thrombus off of picc line in lat subclavian region = 0.5 cm. Basilic vein appears patent and indu sible. IMPRESSION: There is evidence for some minimal thrombus around the PICC line catheter in the subclavian vein. The re is no complete occlusion.
[2021-03-19] MEDS ORDERED: NALOXONE 0.4 MG/ML 1 ML VIAL IV PRN (01:14)
[2021-03-19] MEDS ORDERED: SODIUM CHLORIDE 0.9% 1,000 ML IV SCH (01:15)
--- NOTE | 2021-03-19 01:19 | ED ---
General Adult HPI - General Chief complaint: Recheck/Abnormal Lab/Rx Stated complaint: pic line issues Time Seen by Provider: 03/18/21 21:53 Source: patient Mode of arrival: ambulatory Limitations: no limitations - History of Present Illness Initial comments: This patient is 25-year-old woman with history of Crohn's disease, currently having PICC line to the right arm, who presents with concerns about PICC line associated blood clot. The patient had been having pains going back a little over a week and was seen here. She had an ultrasound that showed some clot associated with the PICC line. The patient was discharged to be treated as outpatient. She did follow-up with her physician who felt that she should be seen here for possibility of thrombolytic therapy. The patient is not having any chest symptoms, no chest pain, dyspnea, hemoptysis, palpitations, diaphoresis, or syncope. Patient is complaining of some right upper extremity pain. Onset/Timin -: days(s) Location: right, upper extremity Radiation: non-radiation Quality: aching Consistency: constant Improves with: none Worsens with: none Associated Symptoms: denies other symptoms Treatments Prior to Arrival: none - Related Data Home Medications Medication Instructions Recorded Confirmed Medroxyprogesterone Acetate 150 mg IM Q90D 03/10/18 03/19/21 [Depo-Provera] Lurasidone [Latuda] 80 mg PO HS 03/07/19 03/19/21 Benztropine Mesylate [Cogentin] 2 mg PO BID 12/06/19 03/19/21 Ustekinumab [Stelara] 90 mg IM Q56D 12/06/19 03/19/21 Dicyclomine [Bentyl] 10 mg PO BID 05/17/20 03/19/21 FLUoxetine HCL [PROzac Weekly] 90 mg PO WE 05/17/20 03/19/21 Fluticasone Nasal [place] [Flonase 1 spray EA NOSTRIL DAILY PRN 05/17/20 03/19/21 Nasal [place]] Loratadine [Claritin] 10 mg PO DAILY PRN 05/17/20 03/19/21 Na Phos,M-B/Na Phos,Di-Ba [Fleet 133 ml RECTAL DAILY PRN 05/17/20 03/19/21 Adult] Omeprazole [PriLOSEC] 40 mg PO HS 05/17/20 03/19/21 Ondansetron [Zofran ODT] 4 mg PO Q8HR PRN 05/17/20 03/19/21 Vitamin C/Biotin [Hair, Skin and 2 tab PO HS 05/17/20 03/19/21 Nails] hydrOXYzine pamoate [Vistaril] 100 mg PO TID PRN 05/17/20 03/19/21 oxyCODONE HCL/ACETAMINOPHEN 1 tab PO TID PRN 05/17/20 03/19/21 [Percocet 7.5-325 mg] Amitriptyline HCl 100 mg PO HS 01/24/21 03/19/21 Amphetamine [Adzenys Xr-Odt] 9.4 mg PO DAILY 03/19/21 03/19/21 Gabapentin [Neurontin] 100 mg PO QID 03/19/21 03/19/21 Prochlorperazine [Compazine] 10 mg PO Q6H PRN 03/19/21 03/19/21 Previous Rx's Medication Instructions Recorded Metoclopramide [Reglan] 10 mg PO TID PRN #15 tab 09/19/20 Apixaban [Eliquis Starter Pack 0 mg PO DIRECTED 30 Days #1 pack 03/19/21 (for VTE)] Allergies Allergy/AdvReac Type Severity Reaction Status Date / Time adalimumab [From Humira] Allergy RASH/NAUSEA/VOMITING/JOINT Verified 03/19/21 06:26 PAIN amoxicillin trihydrate Allergy Rash/Hives Verified 03/19/21 06:26 [From Augmentin] potassium clavulanate Allergy Rash/Hives Verified 03/19/21 06:26 [From Augmentin] Review of Systems ROS Statement: Those systems with pertinent positive or pertinent negative responses have been documented in the HPI. ROS Other: All systems not noted in ROS Statement are negative. Constitutional: Denies: fever, chills, weakness Respiratory: Denies: cough, dyspnea, hemoptysis Cardiovascular: Denies: chest pain, palpitations, edema, syncope Gastrointestinal: Reports: nausea. 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, MRSA Date of last positivie culture/infection: 2002, Jul 2019 cdiff MDRO Source:: Hip Past Surgical History: Bowel Resection, Cholecystectomy Additional Past Surgical History / Comment(s): wisdom teeth, bowel resection x 2 in 2017, sepsis after first surgery, 2 PICC lines removed, Port removed Past Anesthesia/Blood Transfusion Reactions: No Reported Reaction Past Psychological History: Anxiety, Bipolar, Depression, PTSD Smoking Status: Never smoker Past Alcohol Use History: None Reported Past Drug Use History: None Reported - Past Family History Mother Family Medical History: Cancer Father Family Medical History: No Reported History General Exam Limitations: no limitations General appearance: alert, in no apparent distress Head exam: Present: atraumatic, normocephalic Eye exam: Present: normal appearance. Absent: scleral icterus, conjunctival injection Respiratory exam: Present: normal lung sounds bilaterally. Absent: respiratory distress, wheezes, rales, rhonchi, stridor Cardiovascular Exam: Present: regular rate, normal rhythm, normal heart sounds. Absent: systolic murmur, diastolic murmur, rubs, gallop GI/Abdominal exam: Present: soft. Absent: distended, tenderness, guarding, rebound, rigid, mass Extremities exam: Present: normal inspection, full ROM, normal capillary refill, other (The PICC line insertion site in the right upper extremity is normal. No erythema or drainage.) Neurological exam: Present: alert. Absent: motor sensory deficit Skin exam: Present: warm, dry, intact, normal color. Absent: rash Course Vital Signs 03/18/21 03/18/21 03/19/21 21:40 23:51 02:48 Temperature 97.9 F 98.2 F Pulse Rate 92 88 58 L Respiratory 18 16 18 Rate Blood Pressure 115/77 103/70 109/74 O2 Sat by Pulse 100 98 100 Oximetry 03/19/21 03/19/21 03/19/21 06:35 07:36 13:29 Temperature 98.0 F 97.9 F Pulse Rate 79 65 75 Respiratory 18 18 18 Rate Blood Pressure 98/62 98/62 98/63 O2 Sat by Pulse 98 98 100 Oximetry Medical Decision Making - Lab Data Result diagrams: 03/19/21 03:57 Lab Results 03/18/21 Range/Units 22:40 D-Dimer 0.34 (<0.60) mg/L FEU Disposition Clinical Impression: Subclavian vein thrombosis, right Disposition: HOME SELF-CARE Condition: Good Is patient prescribed a controlled substance at d/c from ED?: No
[2021-03-19 02:50] VITALS: RESP 18
[2021-03-19] MEDS: MORPHINE SULFATE 2 MG/ML SYRINGE IVP PRN ×3 (02:51→14:03)
[2021-03-19] MEDS ORDERED: HEPARIN SODIUM 1,000 UN/ML (10ML VL) IV PRN (03:01)
[2021-03-19] MEDS ORDERED: HEPARIN SODIUM 1,000 UN/ML (10ML VL) IV ONE (03:01)
--- NOTE | 2021-03-19 03:05 | P.HPIM ---
History of Present Illness H&P Date: 03/19/21 The patient is a 25-year-old female with a long-standing history of Crohn's disease with PICC line for hydration, history of DVT in setting of previous ports and PICC lines, normally follows with cardiovascular specialist at [facility] who presented to the emergency room for right arm thrombus. The patient had initially presented to the emergency room with complaints of right upper arm pain proximal to the PICC line site with radiation to the chest and warmth 1 week ago. The patient was found to have a superficial vein thrombosis without any evidence of DVT. She was subsequently discharged with follow-up with her primary care physician. Patient subsequently was seen by her primary care provider advised the patient to return to the emergency room since her pain persisted. Today, the patient reports ongoing right upper arm pain with radiation to the chest, currently at 7 out of 10. She denied chest discomfort or shortness of breath. She further reports chronic nausea, vomiting, diarrhea, and diffuse abdominal pain, unchanged from baseline. Repeat upper extremity venous duplex revealed minimal thrombus around the PICC line catheter in the subclavian vein without complete occlusion. Laboratory evaluation revealed a d- dimer 0.34. Review of systems: Pertinent positives and negatives as discussed in HPI, a complete review of systems was performed and all other systems are negative. Physical examination: General: non toxic, no distress, appears at stated age, normal weight Derm: no unusual rashes/lesions no unusual ecchymoses, warm, dry Head: atraumatic, normocephalic, symmetric Eyes: EOMI, no lid lag, anicteric sclera, pupils equal round reactive to light ENT: Nose and ears atraumatic, no thrush, no pharyngeal erythema Neck: No thyromegaly, no cervical lymphadenopathy, trachea midline, supple Mouth: no lip lesion, mucus membranes moist Cardiovascular: S1S2 reg, no murmur, positive posterior tibial pulse bilateral, no edema, capillary refill less than 2 seconds Lungs: CTA bilateral, no rhonchi, no rales , no accessory muscle use Abdominal: soft, nontender to palpation, no guarding, no appreciable organomegaly, normal bowel sounds Ext: no gross muscle atrophy, muscle strength 5 out of 5 in all 4 extremities grossly, no contractures, right proximal upper arm medial aspect mild tenderness Neuro: CN II-XI grossly intact, light touch intact all 4 extremities, finger to nose within normal limits, Psych: Alert, oriented, appropriate affect Assessment/plan Right upper extremity DVT in setting of right PICC line -Start heparin infusion -Vascular surgery consult requiring guidance for removal of PICC line and duration of therapy Chronic conditions: Crohn's disease -C/w home meds DVT prophylaxis -Heparin infusion The patient is admitted with an anticipated less than 2 midnight stay for evaluation of RUE DVT CODE STATUS: Full COde Discussed with: Patient, Mother Anticipated discharge date: in am Anticipated discharge place: Home 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, MRSA Date of last positivie culture/infection: 2002, Jul 2019 cdiff MDRO Source:: Hip Past Surgical History: Bowel Resection, Cholecystectomy Additional Past Surgical History / Comment(s): wisdom teeth, bowel resection x 2 in 2017, sepsis after first surgery, 2 PICC lines removed, Port removed Past Anesthesia/Blood Transfusion Reactions: No Reported Reaction Past Psychological History: Anxiety, Bipolar, Depression, PTSD Smoking Status: Never smoker Past Alcohol Use History: None Reported Past Drug Use History: None Reported - Past Family History Mother Family Medical History: Cancer Father Family Medical History: No Reported History Medications and Allergies Home Medications Medication Instructions Recorded Confirmed Type Medroxyprogesterone Acetate 150 mg IM Q90D 03/10/18 03/08/21 History [Depo-Provera] Lurasidone [Latuda] 80 mg PO HS 03/07/19 03/08/21 History Benztropine Mesylate [Cogentin] 2 mg PO BID PRN 12/06/19 03/08/21 History Ustekinumab [Stelara] 90 mg IM Q56D 12/06/19 03/08/21 History Amphetamine [Adzenys Xr-Odt] 6.3 mg PO DAILY 05/17/20 03/08/21 History Dicyclomine [Bentyl] 10 mg PO QID PRN 05/17/20 03/08/21 History FLUoxetine HCL [PROzac Weekly] 90 mg PO WE 05/17/20 03/08/21 History Fluticasone Nasal [place] [Flonase 1 spray EA NOSTRIL DAILY PRN 05/17/20 03/08/21 History Nasal [place]] Loratadine [Claritin] 10 mg PO DAILY PRN 05/17/20 03/08/21 History Metoclopramide HCl [Reglan] 10 mg PO Q6H PRN 05/17/20 03/08/21 History Na Phos,M-B/Na Phos,Di-Ba [Fleet 133 ml RECTAL DAILY PRN 05/17/20 03/08/21 History Adult] Omeprazole [PriLOSEC] 40 mg PO HS 05/17/20 03/08/21 History Ondansetron [Zofran ODT] 4 mg PO Q8HR PRN 05/17/20 03/08/21 History Vitamin C/Biotin [Hair, Skin and 2 tab PO HS 05/17/20 03/08/21 History Nails] hydrOXYzine pamoate [Vistaril] 100 mg PO TID PRN 05/17/20 03/08/21 History oxyCODONE HCL/ACETAMINOPHEN 1 tab PO TID PRN 05/17/20 03/08/21 History [Percocet 7.5-325 mg] Pantoprazole [Protonix] 40 mg PO DAILY 14 Days #14 08/20/20 03/08/21 Rx tablet. Metoclopramide [Reglan] 10 mg PO TID PRN #15 tab 09/19/20 03/08/21 Rx Promethazine Suppository 25 mg RECTAL QID #28 supp 12/14/20 03/08/21 Rx [Phenergan] Amitriptyline HCl 50 mg PO HS 01/24/21 03/08/21 History Gabapentin [Neurontin] 400 mg PO DAILY 01/24/21 03/08/21 History Cephalexin [Keflex] 500 mg PO Q8HR #40 cap 02/07/21 03/08/21 Rx Prochlorperazine [Compazine] 10 mg PO Q8H #20 tab 02/07/21 03/08/21 Rx Allergies Allergy/AdvReac Type Severity Reaction Status Date / Time adalimumab [From Humira] Allergy RASH/NAUSEA/VOMITING/JOINT Verified 03/18/21 21:40 PAIN amoxicillin trihydrate Allergy Rash/Hives Verified 03/18/21 21:40 [From Augmentin] potassium clavulanate Allergy Rash/Hives Verified 03/18/21 21:40 [From Augmentin] Physical Exam Vitals: Vital Signs Temp Pulse Resp BP Pulse Ox 03/19/21 02:48 98.2 F 58 L 18 109/74 100 03/18/21 23:51 88 16 103/70 98 03/18/21 21:40 97.9 F 92 18 115/77 100 Intake and Output 03/18/21 03/18/21 03/19/21 14:59 22:59 06:59 Other: Weight 58.513 kg
[2021-03-19] MEDS ORDERED: HEPARIN SOD,PORK IN 0.45% NACL 25,000 UNIT in 0.45% NACL 1 250ML.BAG IV SCH (03:15)
[2021-03-19 04:16] LABS: Basophils % (A) 1 %; Eosinophils # (A) 0.1 k/uL (0-0.7); Eosinophils % (A) 2 %; HGB 11.8 gm/dL (11.4-16.0); Lymphocytes # (A) 2.3 k/uL (1.0-4.8); Lymphocytes % (A) 34 %; MCH 30.4 pg (25.0-35.0); MCHC 32.9 g/dL (31.0-37.0); MCV 92.5 fL (80.0-100.0); Mean Platelet Volume 8.6; Monocytes # (A) 0.4 k/uL (0-1.0); Monocytes % (A) 5 %; Neutrophils # (A) 3.8 k/uL (1.3-7.7); Neutrophils % (A) 57 %; Platelet Count 180 k/uL (150-450); WBC 6.7 k/uL (3.8-10.6)
[2021-03-19 04:25] LABS: Partial Thromboplastin Time 22.8 sec (22.0-30.0); Prothrombin Time 10.6 sec (9.0-12.0)
[2021-03-19 07:38] VITALS: TEMP 97.9
--- NOTE | 2021-03-19 12:09 | P.GSCN ---
History of Present Illness Consult date: 03/19/21 Reason for Consult: subclavian thrombus Requesting physician: Antonio Choi History of present illness: This is a 25-year-old white female who presented to the emergency department with pain in her right upper extremity.she currently has a PICC line in her right upper extremity which she states was placed about 2 months ago at [facility] for IV fluids and infusions for her Crohn's disease. States she had a previous blood clot in her left upper extremity at that PICC line site. She states she had workup with her primary care physician for clotting disorder, however had not seen a commercial escrow assistant. he states her last left upper extremity DVT was in July 2020 and was on Eliquis for her previous left upper extremity DVT for 4 months. She denies any shortness of breath or chest pain. Denies any fevers, abdominal pain, nausea, or vomiting. Review of Systems a 14 point review of systems was completed and all pertinent positives and negatives as stated in HPI 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, MRSA Year Discovered:: 2002, Jul 2019 cdiff MDRO Source:: Hip Past Surgical History: Bowel Resection, Cholecystectomy Additional Past Surgical History / Comment(s): wisdom teeth, bowel resection x 2 in 2017, sepsis after first surgery, 2 PICC lines removed, Port removed Past Anesthesia/Blood Transfusion Reactions: No Reported Reaction Past Psychological History: Anxiety, Bipolar, Depression, PTSD Smoking Status: Never smoker Past Alcohol Use History: None Reported Past Drug Use History: None Reported - Past Family History Mother Family Medical History: Cancer Father Family Medical History: No Reported History Medications and Allergies Home Medications Medication Instructions Recorded Confirmed Type Medroxyprogesterone Acetate 150 mg IM Q90D 03/10/18 03/19/21 History [Depo-Provera] Lurasidone [Latuda] 80 mg PO HS 03/07/19 03/19/21 History Benztropine Mesylate [Cogentin] 2 mg PO BID 12/06/19 03/19/21 History Ustekinumab [Stelara] 90 mg IM Q56D 12/06/19 03/19/21 History Dicyclomine [Bentyl] 10 mg PO BID 05/17/20 03/19/21 History FLUoxetine HCL [PROzac Weekly] 90 mg PO WE 05/17/20 03/19/21 History Fluticasone Nasal [place] [Flonase 1 spray EA NOSTRIL DAILY PRN 05/17/20 03/19/21 History Nasal [place]] Loratadine [Claritin] 10 mg PO DAILY PRN 05/17/20 03/19/21 History Na Phos,M-B/Na Phos,Di-Ba [Fleet 133 ml RECTAL DAILY PRN 05/17/20 03/19/21 History Adult] Omeprazole [PriLOSEC] 40 mg PO HS 05/17/20 03/19/21 History Ondansetron [Zofran ODT] 4 mg PO Q8HR PRN 05/17/20 03/19/21 History Vitamin C/Biotin [Hair, Skin and 2 tab PO HS 05/17/20 03/19/21 History Nails] hydrOXYzine pamoate [Vistaril] 100 mg PO TID PRN 05/17/20 03/19/21 History oxyCODONE HCL/ACETAMINOPHEN 1 tab PO TID PRN 05/17/20 03/19/21 History [Percocet 7.5-325 mg] Metoclopramide [Reglan] 10 mg PO TID PRN #15 tab 09/19/20 03/19/21 Rx Amitriptyline HCl 100 mg PO HS 01/24/21 03/19/21 History Amphetamine [Adzenys Xr-Odt 9.4 mg 9.4 mg PO DAILY 03/19/21 03/19/21 History Tablet] Gabapentin [Neurontin] 100 mg PO QID 03/19/21 03/19/21 History Prochlorperazine [Compazine] 10 mg PO Q6H PRN 03/19/21 03/19/21 History Allergies Allergy/AdvReac Type Severity Reaction Status Date / Time adalimumab [From Humira] Allergy RASH/NAUSEA/VOMITING/JOINT Verified 03/19/21 06:26 PAIN amoxicillin trihydrate Allergy Rash/Hives Verified 03/19/21 06:26 [From Augmentin] potassium clavulanate Allergy Rash/Hives Verified 03/19/21 06:26 [From Augmentin] Surgical - Exam Vital Signs Temp Pulse Resp BP Pulse Ox 97.9 F 92 18 115/77 100 03/18/21 21:40 03/18/21 21:40 03/18/21 21:40 03/18/21 21:40 03/18/21 21:40 General appearance: The patient is alert, oriented, in no acute distress. HET: Head is normocephalic and atraumatic. Pupils are equal and reactive. Oropharynx is clear without lesions. Neck: Supple without lymphadenopathy. Trachea midline. Heart: S1 S2. Regular rate and rhythm. Lungs: No crackles or wheezes are heard. Abdomen: Soft, nontender, nondistended with bowel sounds. No peritoneal signs. No palpable organomegaly or masses. Extremities: Normal skin color and turgor. No cyanosis, rash, ulceration, clubbing, or edema. Radial and pedal pulses are 2/4 bilaterally. Patient has full range of motion of right upper extremity, however does state that there is some discomfort when she raises it up. No swelling or redness noted Neurological: No focal deficits. Strength and sensation are grossly intact. Results - Labs 03/19/21 03:57 - Imaging Comments: venous Doppler right upper extremity: Right arm PICC line visualized with vascular flow within the surrounding line. Evidence of some minimal thrombus around the PICC line catheter in the subclavian vein. Is no complete occlusion. Assessment and Plan Assessment: 1. Right subclavian thrombus 2. Crohn's disease with right upper extremity PICC line for fluids and infus ions. Plan: 1. Continue heparin drip 2. Transition to Eliquis tomorrow 3. Elevate RUE 4. Further recommendations to follow Thank you for this consultation and allowing us take part in the plan of care of your patient during her hospital stay The impression and plan of care has been dictated as directed. I performed a history and examination of this patient, discussed the same with the dictator. I agree with the dictator's note ,documented as a scribe. Any additional findings or plans will be noted.
--- NOTE | 2021-03-19 13:23 | P.DS ---
<Homar Carr - Last Filed: 03/19/21 14:53> Providers Expected date of discharge: 03/19/21 Hospital Course: Discharge Diagnosis: Acute DVT right upper extremity in the setting of Right PICC line Crohn's disease History of DVT Anxiety and depression Hospital Course: Patient is a 25-year-old female with a long-standing history of Crohn's disease follows phlebotomist supervisor/instructor with [facility], PICC line for use of reported hydration for patient's Crohn's disease, and history of DVT and not on anticoagulant. She presented to the hospital earlier this morning for reports of the right arm thrombosis as directed by her PCP. Patient was found to have an elevated d-dimer of 0.34. With right upper extremity duplex revealing a minimal thrombus around the PICC line catheter in the subclavian vein without complete occlusion. Patient was started on anticoagulation with heparin and admitted under our services with consultation to vascular surgery. Patient was transitioned over to oral anticoagulant. Prescription for Eliquis was sent to pharmacy to verify insurance coverage in which patient had $0 co-pay. Patient's condition is stable vital signs stable. She was updated on need for continued anticoagulation and instructed to take medications as directed without missing any doses. Patient to instructed to follow-up with her phlebotomist supervisor/instructor with [facility] and her PCP within the next week. Patient is stable for discharge home on oral anticoagulation at this time. Patient also educated that Depo-Provera increases risks of DVTs and she may consider alternative form of control. Physical examination Patient seen and examined at bedside. PICC line right upper extremity, dressing clean dry and intact with no surrounding redness or swelling present. Skin warm and dry. Patient denied having any headache, lightheadedness, dizziness, changes in vision or hearing, chest pain or palpitations, shortness of breath, dyspnea with exertion, or experiencing any numbness/tingling/weakness in her right upper extremity. Vital signs reviewed and stable. General: Nontoxic, no distress and appears stated age. Derm: Skin warm and dry, normal coloration for ethnicity. Head: Atraumatic, normocephalic and symmetric. Eyes: EOMs intact, no lid lag, and anicteric sclera Mouth: no lip lesions, mucus membranes moist Cardiovascular: regular rate and rhythm with normal S1S2, no murmur, positive radial pulses and posterior tibial pulses bilaterally, and cap refill < 2 seconds. PICC line RUE with dressing clean dry and intact with no surrounding redness or swelling present. Lungs: Respirations even, regular, and unlabored on room air. Lungs CTA bilaterally, no rhonchi, no rales, no wheezing, and no accessory muscle usage. Abdominal: soft, nontender to palpation, no guarding, no appreciable organomegaly Ext: ROM intact. No gross muscle atrophy, no edema, no contractures Neuro: Speech clear, face symmetrical and CN II-XII grossly intact with no noted focal neuro deficits Psych: Alert and oriented to person, place, time, and situation. Appropriate and pleasant affect. A total of 45 minutes of time were spent preparing this complex discharge summary. Patient Condition at Discharge: Good Plan - Discharge Summary New Discharge Prescriptions: New Apixaban [Eliquis Starter Pack (for VTE)] 0 mg PO DIRECTED 30 Days #1 pack Continue Medroxyprogesterone Acetate [Depo-Provera] 150 mg IM Q90D Lurasidone [Latuda] 80 mg PO HS Ustekinumab [Stelara] 90 mg IM Q56D Benztropine Mesylate [Cogentin] 2 mg PO BID Na Phos,M-B/Na Phos,Di-Ba [Fleet Adult] 133 ml RECTAL DAILY PRN PRN Reason: Constipation Vitamin C/Biotin [Hair, Skin and Nails] 2 tab PO HS FLUoxetine HCL [PROzac Weekly] 90 mg PO WE Ondansetron [Zofran ODT] 4 mg PO Q8HR PRN PRN Reason: Nausea Fluticasone Nasal [place] [Flonase Nasal [place]] 1 spray EA NOSTRIL DAILY PRN PRN Reason: ALLERGIES Omeprazole [PriLOSEC] 40 mg PO HS oxyCODONE HCL/ACETAMINOPHEN [Percocet 7.5-325 mg] 1 tab PO TID PRN PRN Reason: Pain hydrOXYzine pamoate [Vistaril] 100 mg PO TID PRN PRN Reason: Anxiety Loratadine [Claritin] 10 mg PO DAILY PRN PRN Reason: allergies Dicyclomine [Bentyl] 10 mg PO BID Metoclopramide [Reglan] 10 mg PO TID PRN #15 tab PRN Reason: GERD Amitriptyline HCl 100 mg PO HS Prochlorperazine [Compazine] 10 mg PO Q6H PRN PRN Reason: Nausea Amphetamine [Adzenys Xr-Odt] 9.4 mg PO DAILY Gabapentin [Neurontin] 100 mg PO QID Discharge Medication List Medroxyprogesterone Acetate [Depo-Provera] 150 mg IM Q90D 03/10/18 [History] Lurasidone [Latuda] 80 mg PO HS 03/07/19 [History] Benztropine Mesylate [Cogentin] 2 mg PO BID 12/06/19 [History] Ustekinumab [Stelara] 90 mg IM Q56D 12/06/19 [History] Dicyclomine [Bentyl] 10 mg PO BID 05/17/20 [History] FLUoxetine HCL [PROzac Weekly] 90 mg PO WE 05/17/20 [History] Fluticasone Nasal [place] [Flonase Nasal [place]] 1 spray EA NOSTRIL DAILY PRN 05/17/20 [History] Loratadine [Claritin] 10 mg PO DAILY PRN 05/17/20 [History] Na Phos,M-B/Na Phos,Di-Ba [Fleet Adult] 133 ml RECTAL DAILY PRN 05/17/20 [History] Omeprazole [PriLOSEC] 40 mg PO HS 05/17/20 [History] Ondansetron [Zofran ODT] 4 mg PO Q8HR PRN 05/17/20 [History] Vitamin C/Biotin [Hair, Skin and Nails] 2 tab PO HS 05/17/20 [History] hydrOXYzine pamoate [Vistaril] 100 mg PO TID PRN 05/17/20 [History] oxyCODONE HCL/ACETAMINOPHEN [Percocet 7.5-325 mg] 1 tab PO TID PRN 05/17/20 [History] Metoclopramide [Reglan] 10 mg PO TID PRN #15 tab 09/19/20 [Rx] Amitriptyline HCl 100 mg PO HS 01/24/21 [History] Amphetamine [Adzenys Xr-Odt] 9.4 mg PO DAILY 03/19/21 [History] Apixaban [Eliquis Starter Pack (for VTE)] 0 mg PO DIRECTED 30 Days #1 pack 03/19/21 [Rx] Gabapentin [Neurontin] 100 mg PO QID 03/19/21 [History] Prochlorperazine [Compazine] 10 mg PO Q6H PRN 03/19/21 [History] Follow up Appointment(s)/Referral(s): Charlotte Slade MD [Primary Care Provider] - 1-2 days Activity/Diet/Wound Care/Special Instructions: Special Instructions: You are being discharged home on an oral anticoagulant Eliquis for treatment of your DVT. You will need to call and notify her phlebotomist supervisor/instructor regarding right upper extremity DVT along PICC line. If they wish to continue PICC line for needed hydration, he will need to remain on anticoagulation. You will need to follow up with posterior PCP and phlebotomist supervisor/instructor within the next week. Take all medications as prescribed without missing any doses. Discharge Disposition: HOME SELF-CARE <AmbreenLeticia Fortino - Last Filed: 03/19/21 19:40> Providers Date of admission: 03/19/21 01:16 Attending physician: Antonio Choi MD Consults: 03/19/21 03:02 Consult Physician Urgent Consulting Provider: Donny Johnson Consult Reason/Comments: RUE DVT Do you want consulting provider notified?: Yes Primary care physician: Charlotte Slade MD Hospital Course: Patient seen and examined independently. Patient was also seen by Homar Carr NP and case was discussed. I am in agreement with discharge diagnosis, hospital course, and physical exam as written above and amended below. Discussed with patient importance of taking Eliquis, she reports that she has been on in the past for a PICC line before. She understands the importance of taking it. She will discuss with her phlebotomist supervisor/instructor and she can have her PICC line removed. She is aware that she will need to stay on Eliquis. 13 her PICC line in, and for 3 months after is improved. General: non toxic, no distress, appears at stated age Derm: warm, dry Head: atraumatic, normocephalic, symmetric Eyes: EOMI, no lid lag, anicteric sclera Mouth: no lip lesion, mucus membranes moist Cardiovascular: S1S2 reg, no murmur, positive posterior tibial pulse bilateral, Lungs: CTA bilateral, no rhonchi, no rales , no accessory muscle use Abdominal: soft, nontender to palpation, no guarding, no appreciable organomegaly Ext: no gross muscle atrophy, no edema, no contractures, no edema in the right upper extremity, PICC line without erythema or warmth Neuro: CN II-XI grossly intact, no focal neuro deficits Psych: Alert, oriented, appropriate affect
[2021-03-19 13:31] VITALS: BP 98/63; PULSE 75
== END 2021-03-19 14:10 | disposition home or self-care (01) ==
LOC: EC 21:31 → 6NMEDSUR 03-19 01:16
PROVIDERS: ADMIT Internal Medicine; ATTEND Internal Medicine
DX: I82.621 Acute embolism and thrombosis of deep veins of right upper extremity (principal); K50.90 Crohn's disease, unspecified, without complications; D68.9 Coagulation defect, unspecified; I82.819 Embolism and thrombosis of superficial veins of unspecified lower extremity; F31.9 Bipolar disorder, unspecified; F43.10 Post-traumatic stress disorder, unspecified; Z79.899 Other long term (current) drug therapy; Z79.01 Long term (current) use of anticoagulants; Z79.3 Long term (current) use of hormonal contraceptives; Z88.0 Allergy status to penicillin; Z88.8 Allergy status to other drugs, medicaments and biological substances; Z86.14 Personal history of Methicillin resistant Staphylococcus aureus infection; Z86.19 Personal history of other infectious and parasitic diseases; Z90.49 Acquired absence of other specified parts of digestive tract; Z86.718 Personal history of other venous thrombosis and embolism; Z80.9 Family history of malignant neoplasm, unspecified
CPT/HCPCS: 96376 ×2; 96365; 96366; 96375; 99285; 36415; 85379; 85025; 85610; 85730; 93971; G0378; J2270 ×2; J1644 ×2

== ENCOUNTER 2021-04-03 21:34 | Emergency (ER) | payer MEDICARE, OTHER ==
[2021-04-03 21:50] VITALS: TEMP 98
[2021-04-03] MEDS ORDERED: HYDROmorphone 0.5 MG/0.5 ML SYRINGE IVP STA (22:19)
[2021-04-03] MEDS ORDERED: PANTOPRAZOLE 40 MG/10 ML VIAL IVP STA (22:19)
[2021-04-03] MEDS ORDERED: SODIUM CHLORIDE 0.9% 1,000 ML IV STA (22:19)
[2021-04-03] MEDS ORDERED: ONDANSETRON 4 MG/2 ML VIAL IVP STA (22:19)
--- NOTE | 2021-04-03 22:47 | XR ---
EXAMINATION TYPE: XR KUB DATE OF EXAM: 04/03/2021 COMPARISON: 02/02/2021 HISTORY: Abdominal pain TECHNIQUE: 2 views upright FINDINGS: There is no sign of intestinal obstruction or pneumoperitoneum. Fecal pattern is normal. Lazara ng bases are clear. There are no pathologic calcifications over the kidneys. There is some metallic d ensity over the right iliac bone that is probably in the clothing. IMPRESSION: Nonacute abdomen. No adverse change.
[2021-04-03 23:12] LABS: Basophils % (A) 1 %; Eosinophils # (A) 0.1 k/uL (0-0.7); Eosinophils % (A) 2 %; Lymphocytes # (A) 2.5 k/uL (1.0-4.8); Lymphocytes % (A) 33 %; MCH 31.8 pg (25.0-35.0); MCHC 34.1 g/dL (31.0-37.0); MCV 93.1 fL (80.0-100.0); Mean Platelet Volume 8.4; Monocytes # (A) 0.4 k/uL (0-1.0); Monocytes % (A) 5 %; Neutrophils # (A) 4.3 k/uL (1.3-7.7); Neutrophils % (A) 57 %; Platelet Count 235 k/uL (150-450); RBC 4.08 m/uL (3.80-5.40); RDW 12.5 % (11.5-15.5); WBC 7.5 k/uL (3.8-10.6)
[2021-04-03 23:13] LABS: Appearance,Urine Clear (Clear); Bilirubin,Urine Negative (Negative); Blood,Urine Negative (Negative); Color,Urine Yellow; Glucose,Urine (UA) Negative (Negative); Ketones,Urine Negative (Negative); Leukocyte Esterase,Urine Negative (Negative); Nitrite,Urine Negative (Negative); Protein,Urine Trace (Negative); Specific Gravity,Urine 1.026 (1.001-1.035); Urobilinogen,Urine <2.0 mg/dL (<2.0)
[2021-04-03 23:23] LABS: ALT 9 U/L (4-34); AST 16 U/L (14-36); African American GFR (CKD) >90 (>60 ml/min/1.73 sqM); Albumin 3.6 g/dL (3.5-5.0); Alkaline Phosphatase 61 U/L (38-126); Anion Gap 8 mmol/L; Blood Urea Nitrogen 8 mg/dL (7-17); Calcium 8.8 mg/dL (8.4-10.2); Carbon Dioxide 22 mmol/L (22-30); Chloride 109 mmol/L (98-107); Glucose 92 mg/dL (74-99); Lipase 154 U/L (23-300); Non-African American GFR(CKD) >90 (>60 ml/min/1.73 sqM); Potassium 3.7 mmol/L (3.5-5.1); Sodium 139 mmol/L (137-145); Total Bilirubin <0.1 mg/dL (0.2-1.3); Total Protein 6.4 g/dL (6.3-8.2)
--- NOTE | 2021-04-03 23:24 | ED ---
Abdominal Pain HPI - General Chief Complaint: Abdominal Pain Stated Complaint: Sangeetha's Flareup Time Seen by Provider: 04/03/21 22:06 Source: patient Mode of arrival: wheelchair Limitations: no limitations - History of Present Illness Initial Comments: 25-year-old female with history of Crohn's disease presenting to the emergency department with a chief complaint of abdominal pain. Patient reports symptoms for the past 3-4 days. States she is prescribed Percocet for pain but has not been taken due to the constant nausea vomiting. Reports diffuse abdominal pain. States that she has a scheduled colonoscopy with her GI specialist out of [place]. She also reports diarrhea with occasional bright red bleeding. She denies any vaginal symptoms but suspects she has a urinary tract infection. She does report some dysuria but denies any urgency or frequency. States she has been previously seen for Crohn's exacerbation emergency department. Reports surgical history of colectomy. - Related Data Home Medications Medication Instructions Recorded Confirmed Medroxyprogesterone Acetate 150 mg IM Q90D 03/10/18 04/03/21 [Depo-Provera] Lurasidone [Latuda] 80 mg PO HS 03/07/19 04/03/21 Benztropine Mesylate [Cogentin] 2 mg PO BID 12/06/19 04/03/21 Ustekinumab [Stelara] 90 mg IM Q56D 12/06/19 04/03/21 Dicyclomine [Bentyl] 10 mg PO BID 05/17/20 04/03/21 FLUoxetine HCL [PROzac Weekly] 90 mg PO WE 05/17/20 04/03/21 Fluticasone Nasal [place] [Flonase 1 spray EA NOSTRIL DAILY PRN 05/17/20 04/03/21 Nasal [place]] Loratadine [Claritin] 10 mg PO DAILY PRN 05/17/20 04/03/21 Na Phos,M-B/Na Phos,Di-Ba [Fleet 133 ml RECTAL DAILY PRN 05/17/20 04/03/21 Adult] Omeprazole [PriLOSEC] 40 mg PO HS 05/17/20 04/03/21 Ondansetron [Zofran ODT] 4 mg PO Q8HR PRN 05/17/20 04/03/21 Vitamin C/Biotin [Hair, Skin and 2 tab PO HS 05/17/20 04/03/21 Nails] hydrOXYzine pamoate [Vistaril] 100 mg PO TID PRN 05/17/20 04/03/21 oxyCODONE HCL/ACETAMINOPHEN 1 tab PO TID PRN 05/17/20 04/03/21 [Percocet 7.5-325 mg] Amitriptyline HCl 100 mg PO HS 01/24/21 04/03/21 Amphetamine [Adzenys Xr-Odt] 9.4 mg PO DAILY 03/19/21 04/03/21 Gabapentin [Neurontin] 100 mg PO QID 03/19/21 04/03/21 Prochlorperazine [Compazine] 10 mg PO Q6H PRN 03/19/21 04/03/21 Apixaban [Eliquis Starter Pack See Taper PO DIRECTED 04/03/21 04/03/21 (for VTE)] Previous Rx's Medication Instructions Recorded Metoclopramide [Reglan] 10 mg PO TID PRN #15 tab 09/19/20 Allergies Allergy/AdvReac Type Severity Reaction Status Date / Time adalimumab [From Humira] Allergy RASH/NAUSEA/VOMITING/JOINT Verified 04/03/21 22:20 PAIN amoxicillin trihydrate Allergy Rash/Hives Verified 04/03/21 22:20 [From Augmentin] potassium clavulanate Allergy Rash/Hives Verified 04/03/21 22:20 [From Augmentin] Review of Systems ROS Statement: Those systems with pertinent positive or pertinent negative responses have been documented in the HPI. ROS Other: All systems not noted in ROS Statement are negative. 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, MRSA Date of last positivie culture/infection: 2002, Jul 2019 cdiff MDRO Source:: Hip Past Surgical History: Bowel Resection, Cholecystectomy Additional Past Surgical History / Comment(s): wisdom teeth, bowel resection x 2 in 2017, sepsis after first surgery, 2 PICC lines removed, Port removed Past Anesthesia/Blood Transfusion Reactions: No Reported Reaction Past Psychological History: Anxiety, Bipolar, Depression, PTSD Smoking Status: Never smoker Past Alcohol Use History: None Reported Past Drug Use History: None Reported - Past Family History Mother Family Medical History: Cancer Father Family Medical History: No Reported History General Exam Limitations: no limitations General appearance: alert, in no apparent distress Head exam: Present: atraumatic, normocephalic, normal inspection Eye exam: Present: normal appearance, PERRL, EOMI Pupils: Present: normal accommodation ENT exam: Present: normal exam, normal oropharynx, mucous membranes moist Neck exam: Present: normal inspection, full ROM. Absent: tenderness Respiratory exam: Present: normal lung sounds bilaterally. Absent: respiratory distress Cardiovascular Exam: Present: regular rate, normal rhythm, normal heart sounds. Absent: systolic murmur GI/Abdominal exam: Present: soft (Scarring noted in the abdomen), tenderness (Diffuse abdominal tenderness). Absent: distended, guarding, rebound, rigid Extremities exam: Present: normal inspection, full ROM, normal capillary refill. Absent: tenderness Back exam: Present: normal inspection, full ROM. Absent: tenderness, CVA tenderness (R), CVA tenderness (L), muscle spasm, paraspinal tenderness, vertebral tenderness Neurological exam: Present: alert, oriented X3 Psychiatric exam: Present: normal affect, normal mood Skin exam: Present: warm, dry, intact, normal color Course Vital Signs 04/03/21 21:47 Temperature 98.0 F Pulse Rate 90 Respiratory 16 Rate Blood Pressure 104/73 O2 Sat by Pulse 98 Oximetry Medical Decision Making - Medical Decision Making 25-year-old female with history of Crohn's disease presenting to the emergency department with a chief complaint of abdominal pain. On physical examination, patient is well-appearing. Some diffuse abdominal tenderness. Laboratory work is unremarkable. KUB shows no acute findings. Patient was given anti-medics, analgesia and IV fluids. On reevaluation, she reports improvement in symptoms. Patient states she is comfortable to be discharged and she is going to see her GI specialist this week. Strict return parameters were thoroughly discussed the patient was standing agreeable. - Lab Data Result diagrams: 04/03/21 22:36 04/03/21 22:36 Lab Results 04/03/21 04/03/21 04/03/21 Range/Units 22:36 22:36 22:36 WBC 7.5 (3.8-10.6) k/uL RBC 4.08 (3.80-5.40) m/uL Hgb 13.0 (11.4-16.0) gm/dL Hct 38.0 (34.0-46.0) % MCV 93.1 (80.0-100.0) fL MCH 31.8 (25.0-35.0) pg MCHC 34.1 (31.0-37.0) g/dL RDW 12.5 (11.5-15.5) % Plt Count 235 (150-450) k/uL MPV 8.4 Neutrophils % 57 % Lymphocytes % 33 % Monocytes % 5 % Eosinophils % 2 % Basophils % 1 % Neutrophils # 4.3 (1.3-7.7) k/uL Lymphocytes # 2.5 (1.0-4.8) k/uL Monocytes # 0.4 (0-1.0) k/uL Eosinophils # 0.1 (0-0.7) k/uL Basophils # 0.0 (0-0.2) k/uL Sodium 139 (137-145) mmol/L Potassium 3.7 (3.5-5.1) mmol/L Chloride 109 H (98-107) mmol/L Carbon Dioxide 22 (22-30) mmol/L Anion Gap 8 mmol/L BUN 8 (7-17) mg/dL Creatinine 0.51 L (0.52-1.04) mg/dL Est GFR (CKD-EPI)AfAm >90 (>60 ml/min/1.73 sqM) Est GFR (CKD-EPI)NonAf >90 (>60 ml/min/1.73 sqM) Glucose 92 (74-99) mg/dL Calcium 8.8 (8.4-10.2) mg/dL Total Bilirubin <0.1 L (0.2-1.3) mg/dL AST 16 (14-36) U/L ALT 9 (4-34) U/L Alkaline Phosphatase 61 (38-126) U/L Total Protein 6.4 (6.3-8.2) g/dL Albumin 3.6 (3.5-5.0) g/dL Lipase 154 (23-300) U/L Urine Color Yellow Urine Appearance Clear (Clear) Urine pH 7.0 (5.0-8.0) Ur Specific [place] 1.026 (1.001-1.035) Urine Protein Trace H (Negative) Urine Glucose (UA) Negative (Negative) Urine Ketones Negative (Negative) Urine Blood Negative (Negative) Urine Nitrite Negative (Negative) Urine Bilirubin Negative (Negative) Urine Urobilinogen <2.0 (<2.0) mg/dL Ur Leukocyte Esterase Negative (Negative) Disposition Clinical Impression: Exacerbation of Crohn's disease Disposition: HOME SELF-CARE Condition: Stable Instructions (If sedation given, give patient instructions): Crohn Disease (ED) Additional Instructions: Please return to the Emergency Department if symptoms worsen or any other concerns. Is patient prescribed a controlled substance at d/c from ED?: No Referrals: Charlotte Slade MD [Primary Care Provider] - 1-2 days Time of Disposition: 00:00
[2021-04-03] MEDS ORDERED: HYDROmorphone 1 MG/ML 1 ML SYRINGE IVP STA (23:59)
[2021-04-04 00:08] VITALS: RESP 18
[2021-04-04 01:55] VITALS: BP 111/78; PULSE 81
== END 2021-04-04 00:17 | disposition home or self-care (01) ==
LOC: EC 21:34
DX: K50.90 Crohn's disease, unspecified, without complications (principal); R30.0 Dysuria; F31.9 Bipolar disorder, unspecified; F41.9 Anxiety disorder, unspecified; Z79.01 Long term (current) use of anticoagulants; Z79.3 Long term (current) use of hormonal contraceptives; Z88.0 Allergy status to penicillin; Z88.1 Allergy status to other antibiotic agents; Z90.49 Acquired absence of other specified parts of digestive tract
CPT/HCPCS: 36415; 80053; 83690; 85025; 81003; 74018; 99284; 96374; 96375 ×2; 96376; 96361; J2405; J1170 ×2; C9113

== ENCOUNTER 2021-04-04 21:31 | Emergency (ER) | payer MEDICARE, OTHER ==
[2021-04-04 21:36] VITALS: BP 116/80; PULSE 84; RESP 22; TEMP 98.3
[2021-04-04] MEDS ORDERED: HYDROmorphone 0.5 MG/0.5 ML SYRINGE IVP STA (21:50)
[2021-04-04] MEDS ORDERED: SODIUM CHLORIDE 0.9% 1,000 ML IV STA (21:50)
[2021-04-04] MEDS ORDERED: PANTOPRAZOLE 40 MG/10 ML VIAL IVP STA (21:50)
[2021-04-04] MEDS ORDERED: ONDANSETRON 4 MG/2 ML VIAL IVP STA (21:50)
--- NOTE | 2021-04-04 21:56 | ED ---
GI Bleed HPI - General Chief complaint: GI Bleed Stated complaint: abd pain, vaginal bleeding Time Seen by Provider: 04/04/21 21:38 Source: patient Mode of arrival: ambulatory Limitations: no limitations - History of Present Illness Initial comments: 25-year-old female with history of Crohn's disease presenting to emergency Department with a chief complaint of rectal bleeding. Patient reports she was evaluated emergency department yesterday and felt better upon discharge. States these morning she attempted to have a bowel movement and felt the urge to but could not do it. States she waited several hours and about 2 hours prior to arrival. She strained quite a bit and past large amount of dark red blood. States it was slightly painful upon having the bowel movement. She reports the pain is still in the left lower quadrant as yesterday. Does report slight nausea but denies any vomiting. Denies any fevers or chills. Denies any urinary symptoms. Has no concern for . - Related Data Home Medications Medication Instructions Recorded Confirmed Medroxyprogesterone Acetate 150 mg IM Q90D 03/10/18 04/04/21 [Depo-Provera] Lurasidone [Latuda] 80 mg PO HS 03/07/19 04/04/21 Benztropine Mesylate [Cogentin] 2 mg PO BID 12/06/19 04/04/21 Ustekinumab [Stelara] 90 mg IM Q56D 12/06/19 04/04/21 Dicyclomine [Bentyl] 10 mg PO BID 05/17/20 04/04/21 FLUoxetine HCL [PROzac Weekly] 90 mg PO WE 05/17/20 04/04/21 Fluticasone Nasal [place] [Flonase 1 spray EA NOSTRIL DAILY PRN 05/17/20 04/04/21 Nasal [place]] Loratadine [Claritin] 10 mg PO DAILY PRN 05/17/20 04/04/21 Na Phos,M-B/Na Phos,Di-Ba [Fleet 133 ml RECTAL DAILY PRN 05/17/20 04/04/21 Adult] Omeprazole [PriLOSEC] 40 mg PO HS 05/17/20 04/04/21 Ondansetron [Zofran ODT] 4 mg PO Q8HR PRN 05/17/20 04/04/21 Vitamin C/Biotin [Hair, Skin and 2 tab PO HS 05/17/20 04/04/21 Nails] hydrOXYzine pamoate [Vistaril] 100 mg PO TID PRN 05/17/20 04/04/21 oxyCODONE HCL/ACETAMINOPHEN 1 tab PO TID PRN 05/17/20 04/04/21 [Percocet 7.5-325 mg] Amitriptyline HCl 50 mg PO HS 01/24/21 04/04/21 Amphetamine [Adzenys Xr-Odt] 9.4 mg PO DAILY 03/19/21 04/04/21 Gabapentin [Neurontin] 200 mg PO TID 03/19/21 04/04/21 Prochlorperazine [Compazine] 10 mg PO Q6H PRN 03/19/21 04/04/21 Apixaban [Eliquis Starter Pack See Taper PO DIRECTED 04/03/21 04/04/21 (for VTE)] Previous Rx's Medication Instructions Recorded Metoclopramide [Reglan] 10 mg PO TID PRN #15 tab 09/19/20 Allergies Allergy/AdvReac Type Severity Reaction Status Date / Time adalimumab [From Humira] Allergy RASH/NAUSEA/VOMITING/JOINT Verified 04/04/21 22:36 PAIN amoxicillin trihydrate Allergy Rash/Hives Verified 04/04/21 22:36 [From Augmentin] potassium clavulanate Allergy Rash/Hives Verified 04/04/21 22:36 [From Augmentin] Review of Systems ROS Statement: Those systems with pertinent positive or pertinent negative responses have been documented in the HPI. ROS Other: All systems not noted in ROS Statement are negative. Past Medical History Past Medical History: No Reported History Additional Past Medical History / Comment(s): crohns, IBD, colitis dx of crohns at age 10., Bloodclots in right arm, PICC line. 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, MRSA Date of last positivie culture/infection: 2002, Jul 2019 cdiff MDRO Source:: Hip Past Surgical History: Bowel Resection, Cholecystectomy Additional Past Surgical History / Comment(s): wisdom teeth, bowel resection x 2 in 2017, sepsis after first surgery, 2 PICC lines removed, Port removed Past Anesthesia/Blood Transfusion Reactions: No Reported Reaction Past Psychological History: Anxiety, Bipolar, Depression, PTSD Smoking Status: Never smoker Past Alcohol Use History: None Reported Past Drug Use History: None Reported - Past Family History Mother Family Medical History: Cancer Father Family Medical History: No Reported History General Exam Limitations: no limitations General appearance: alert, in no apparent distress Head exam: Present: atraumatic, normocephalic, normal inspection Eye exam: Present: normal appearance, PERRL, EOMI Pupils: Present: normal accommodation ENT exam: Present: normal exam, normal oropharynx, mucous membranes moist, TM's normal bilaterally, normal external ear exam Neck exam: Present: normal inspection, full ROM. Absent: tenderness Respiratory exam: Present: normal lung sounds bilaterally. Absent: respiratory distress, wheezes, rales, rhonchi, stridor Cardiovascular Exam: Present: regular rate, normal rhythm, normal heart sounds. Absent: systolic murmur, diastolic murmur GI/Abdominal exam: Present: soft, tenderness (Left lower quadrant tenderness). Absent: distended, guarding, rebound, rigid Extremities exam: Present: normal inspection, full ROM, normal capillary refill. Absent: tenderness, pedal edema, joint swelling Back exam: Present: normal inspection, full ROM. Absent: tenderness, CVA tenderness (R), CVA tenderness (L) Neurological exam: Present: alert, oriented X3 Psychiatric exam: Present: normal affect, normal mood Skin exam: Present: warm, dry, intact, normal color Course Vital Signs 04/04/21 21:32 Temperature 98.3 F Pulse Rate 84 Respiratory 22 Rate Blood Pressure 116/80 O2 Sat by Pulse 100 Oximetry Medical Decision Making - Medical Decision Making 25-year-old female with history of Crohn's disease presenting to emergency Department with a chief complaint of rectal bleeding. On physical examination, left-sided abdominal tenderness. I did evaluate the patient yesterday for the same chief complaint. The only difference today she has developed more rectal bleeding which is likely secondary to the blood thinner. Patient was started on this approximately one month ago for a right upper extremity DVT. I repeated the ultrasound which showed no signs of a DVT at this time. I advised the patient to stop taking the medication 48 hours in hopes of resolving her rectal bleeding. Otherwise CBC reveals no signs of anemia. CBC is unremarkable. She never give a urine sample. Patient was given IV fluids, analgesia and antiemetics. On reevaluation, she reports improvement in symptoms. Return parameters were thoroughly discussed the patient with worsening agreeable. Case discussed with - Lab Data Result diagrams: 04/04/21 22:15 04/04/21 22:15 Lab Results 04/04/21 04/04/21 04/04/21 Range/Units 22:15 22:15 22:15 WBC 7.6 (3.8-10.6) k/uL RBC 4.09 (3.80-5.40) m/uL Hgb 12.7 (11.4-16.0) gm/dL Hct 38.4 (34.0-46.0) % MCV 94.0 (80.0-100.0) fL MCH 31.2 (25.0-35.0) pg MCHC 33.2 (31.0-37.0) g/dL RDW 13.2 (11.5-15.5) % Plt Count 222 (150-450) k/uL MPV 8.6 Neutrophils % 65 % Lymphocytes % 27 % Monocytes % 4 % Eosinophils % 1 % Basophils % 1 % Neutrophils # 4.9 (1.3-7.7) k/uL Lymphocytes # 2.1 (1.0-4.8) k/uL Monocytes # 0.3 (0-1.0) k/uL Eosinophils # 0.1 (0-0.7) k/uL Basophils # 0.0 (0-0.2) k/uL PT 10.9 (9.0-12.0) sec INR 1.0 (<1.2) APTT 23.3 (22.0-30.0) sec Sodium 138 (137-145) mmol/L Potassium 3.5 (3.5-5.1) mmol/L Chloride 110 H (98-107) mmol/L Carbon Dioxide 21 L (22-30) mmol/L Anion Gap 7 mmol/L BUN 4 L (7-17) mg/dL Creatinine 0.44 L (0.52-1.04) mg/dL Est GFR (CKD-EPI)AfAm >90 (>60 ml/min/1.73 sqM) Est GFR (CKD-EPI)NonAf >90 (>60 ml/min/1.73 sqM) Glucose 103 H (74-99) mg/dL Plasma Lactic Acid Rehan (0.7-2.0) mmol/L Calcium 9.0 (8.4-10.2) mg/dL Total Bilirubin <0.1 L (0.2-1.3) mg/dL AST 16 (14-36) U/L ALT 10 (4-34) U/L Alkaline Phosphatase 57 (38-126) U/L Troponin I (0.000-0.034) ng/mL Total Protein 6.3 (6.3-8.2) g/dL Albumin 3.6 (3.5-5.0) g/dL Urine Color Urine Appearance (Clear) Urine pH (5.0-8.0) Ur Specific [place] (1.001-1.035) Urine Protein (Negative) Urine Glucose (UA) (Negative) Urine Ketones (Negative) Urine Blood (Negative) Urine Nitrite (Negative) Urine Bilirubin (Negative) Urine Urobilinogen (<2.0) mg/dL Ur Leukocyte Esterase (Negative) Urine RBC (0-5) /hpf Urine WBC (0-5) /hpf Ur Squamous Epith Cells (0-4) /hpf Urine Bacteria (None) /hpf Urine Mucus (None) /hpf 04/04/21 04/04/21 04/05/21 Range/Units 22:15 22:15 Unknown WBC (3.8-10.6) k/uL RBC (3.80-5.40) m/uL Hgb (11.4-16.0) gm/dL Hct (34.0-46.0) % MCV (80.0-100.0) fL MCH (25.0-35.0) pg MCHC (31.0-37.0) g/dL RDW (11.5-15.5) % Plt Count (150-450) k/uL MPV Neutrophils % % Lymphocytes % % Monocytes % % Eosinophils % % Basophils % % Neutrophils # (1.3-7.7) k/uL Lymphocytes # (1.0-4.8) k/uL Monocytes # (0-1.0) k/uL Eosinophils # (0-0.7) k/uL Basophils # (0-0.2) k/uL PT (9.0-12.0) sec INR (<1.2) APTT (22.0-30.0) sec Sodium (137-145) mmol/L Potassium (3.5-5.1) mmol/L Chloride (98-107) mmol/L Carbon Dioxide (22-30) mmol/L Anion Gap mmol/L BUN (7-17) mg/dL Creatinine (0.52-1.04) mg/dL Est GFR (CKD-EPI)AfAm (>60 ml/min/1.73 sqM) Est GFR (CKD-EPI)NonAf (>60 ml/min/1.73 sqM) Glucose (74-99) mg/dL Plasma Lactic Acid Rehan 0.8 (0.7-2.0) mmol/L Calcium (8.4-10.2) mg/dL Total Bilirubin (0.2-1.3) mg/dL AST (14-36) U/L ALT (4-34) U/L Alkaline Phosphatase (38-126) U/L Troponin I <0.012 (0.000-0.034) ng/mL Total Protein (6.3-8.2) g/dL Albumin (3.5-5.0) g/dL Urine Color Light Yellow Urine Appearance Clear (Clear) Urine pH 5.5 (5.0-8.0) Ur Specific [place] 1.010 (1.001-1.035) Urine Protein Negative (Negative) Urine Glucose (UA) Negative (Negative) Urine Ketones Negative (Negative) Urine Blood Negative (Negative) Urine Nitrite Negative (Negative) Urine Bilirubin Negative (Negative) Urine Urobilinogen <2.0 (<2.0) mg/dL Ur Leukocyte Esterase Trace H (Negative) Urine RBC 1 (0-5) /hpf Urine WBC 5 (0-5) /hpf Ur Squamous Epith Cells 3 (0-4) /hpf Urine Bacteria Rare H (None) /hpf Urine Mucus Occasional H (None) /hpf Disposition Clinical Impression: Rectal bleeding, Abdominal pain Disposition: ADMITTED IP TO THIS HOSP Condition: Stable Instructions (If sedation given, give patient instructions): Abdominal Pain (ED) Additional Instructions: Please return to the Emergency Department if symptoms worsen or any other concerns. Is patient prescribed a controlled substance at d/c from ED?: No Referrals: Charlotte Slade MD [Primary Care Provider] - 1-2 days Time of Disposition: 01:39
[2021-04-04 22:29] LABS: WBC 7.6 k/uL (3.8-10.6)
[2021-04-04 22:30] LABS: Basophils % (A) 1 %; Eosinophils # (A) 0.1 k/uL (0-0.7); Eosinophils % (A) 1 %; HCT 38.4 % (34.0-46.0); HGB 12.7 gm/dL (11.4-16.0); Lymphocytes # (A) 2.1 k/uL (1.0-4.8); Lymphocytes % (A) 27 %; MCH 31.2 pg (25.0-35.0); MCHC 33.2 g/dL (31.0-37.0); Mean Platelet Volume 8.6; Monocytes # (A) 0.3 k/uL (0-1.0); Monocytes % (A) 4 %; Neutrophils # (A) 4.9 k/uL (1.3-7.7); Neutrophils % (A) 65 %; Platelet Count 222 k/uL (150-450); RBC 4.09 m/uL (3.80-5.40); RDW 13.2 % (11.5-15.5)
[2021-04-04 22:36] LABS: Prothrombin Time 10.9 sec (9.0-12.0)
[2021-04-04 22:37] LABS: Partial Thromboplastin Time 23.3 sec (22.0-30.0)
[2021-04-04 22:41] LABS: ALT 10 U/L (4-34); AST 16 U/L (14-36); African American GFR (CKD) >90 (>60 ml/min/1.73 sqM); Albumin 3.6 g/dL (3.5-5.0); Alkaline Phosphatase 57 U/L (38-126); Anion Gap 7 mmol/L; Blood Urea Nitrogen 4 mg/dL (7-17); Carbon Dioxide 21 mmol/L (22-30); Chloride 110 mmol/L (98-107); Glucose 103 mg/dL (74-99); Non-African American GFR(CKD) >90 (>60 ml/min/1.73 sqM); Potassium 3.5 mmol/L (3.5-5.1); Sodium 138 mmol/L (137-145); Total Bilirubin <0.1 mg/dL (0.2-1.3); Total Protein 6.3 g/dL (6.3-8.2)
[2021-04-05] MEDS ORDERED: HYDROmorphone 1 MG/ML 1 ML SYRINGE IVP STA (00:11)
[2021-04-05 01:10] LABS: Appearance,Urine Clear (Clear); Bacteria,Urine Rare /hpf; Bilirubin,Urine Negative (Negative); Blood,Urine Negative (Negative); Color,Urine Light Yellow; Glucose,Urine (UA) Negative (Negative); Ketones,Urine Negative (Negative); Leukocyte Esterase,Urine Trace (Negative); Mucus,Urine Occasional /hpf; Nitrite,Urine Negative (Negative); PH, Urine 5.5 (5.0-8.0); Protein,Urine Negative (Negative); RBC,Urine 1 /hpf (0-5); Squamous Epithelial Cell,Urine 3 /hpf (0-4); Urobilinogen,Urine <2.0 mg/dL (<2.0); WBC,Urine 5 /hpf (0-5)
--- NOTE | 2021-04-05 01:32 | US ---
EXAMINATION TYPE: US venous doppler duplex UE RT DATE OF EXAM: 04/05/2021 COMPARISON: US CLINICAL HISTORY: r/o dvt. R/O DVT. Tenderness in arm pit. Hx DVT. Patient is on eliquis. SIDE PERFORMED: Right. Right Arm: No evidence of DVT in veins imaged at this time within the right arm. Ulnar veins are very small, color image not taken due to vein size. Color flow is seen surrounding PICC line. IMPRESSION: No evidence of deep vein thrombosis in the right arm.
== END 2021-04-05 02:00 | disposition other institution (70) ==
LOC: EC 21:31
DX: K62.5 Hemorrhage of anus and rectum (principal); R10.32 Left lower quadrant pain; F31.9 Bipolar disorder, unspecified; F41.9 Anxiety disorder, unspecified; Z79.01 Long term (current) use of anticoagulants; Z79.3 Long term (current) use of hormonal contraceptives; Z79.899 Other long term (current) drug therapy; Z86.718 Personal history of other venous thrombosis and embolism; Z88.0 Allergy status to penicillin; Z88.1 Allergy status to other antibiotic agents; Z90.49 Acquired absence of other specified parts of digestive tract
CPT/HCPCS: 36415; 80053; 83605; 84484; 85025; 85610; 85730; 96374; 96375 ×2; 96376; 96361; 99284; J2405; C9113; J1170; 81001

== ENCOUNTER 2021-04-09 19:36 | Emergency (ER) | payer MEDICARE, OTHER ==
[2021-04-09 19:57] VITALS: RESP 18; TEMP 98.5
[2021-04-09] MEDS ORDERED: HYDROmorphone 1 MG/ML 1 ML SYRINGE IM STA (20:14)
[2021-04-09] MEDS ORDERED: diphenhydrAMINE 50 MG/ML 1 ML VIAL IM STA (20:14)
--- NOTE | 2021-04-09 20:14 | ED ---
Abdominal Pain HPI - General Chief Complaint: Abdominal Pain Stated Complaint: Abd pain Source: patient, family (Mother), RN notes reviewed Mode of arrival: ambulatory Limitations: no limitations - History of Present Illness Initial Comments: 25-year-old white female patient presents to the emergency room with her mother, alert and oriented 4, complaining of abdominal pain. Patient states that she started a bowel prep for endoscopy and colonoscopy that she's having a try [place] tomorrow morning. She was told not to take any of her oral pain medications to prepare for the test in the morning. She states that she cannot tolerate the pain and the cramping from the prep. She is here for pain control only. She states that she does have a PICC line in and can get medications that way. She denies any abnormal bleeding or fevers. MD Complaint: abdominal pain -: days(s) (1) Location: periumbilical Radiation: none Severity: severe Severity scale (1-10): 9 Quality: sharp Consistency: constant Improves With: nothing Context: other (Bowel prep started today for colonoscopy and endoscopy tomorrow) Associated Symptoms: denies other symptoms - Related Data Home Medications Medication Instructions Recorded Confirmed Medroxyprogesterone Acetate 150 mg IM Q90D 03/10/18 04/04/21 [Depo-Provera] Lurasidone [Latuda] 80 mg PO 03/07/19 04/04/21 Benztropine Mesylate [Cogentin] 2 mg PO BID 12/06/19 04/04/21 Ustekinumab [Stelara] 90 mg IM Q56D 12/06/19 04/04/21 Dicyclomine [Bentyl] 10 mg PO BID 05/17/20 04/04/21 FLUoxetine HCL [PROzac Weekly] 90 mg PO WE 05/17/20 04/04/21 Fluticasone Nasal [place] [Flonase 1 spray EA NOSTRIL DAILY PRN 05/17/20 04/04/21 Nasal [place]] Loratadine [Claritin] 10 mg PO DAILY PRN 05/17/20 04/04/21 Na Phos,M-B/Na Phos,Di-Ba [Fleet 133 ml RECTAL DAILY PRN 05/17/20 04/04/21 Adult] Omeprazole [PriLOSEC] 40 mg PO 05/17/20 04/04/21 Ondansetron [Zofran ODT] 4 mg PO Q8HR PRN 05/17/20 04/04/21 Vitamin C/Biotin [Hair, Skin and 2 tab PO HS 05/17/20 04/04/21 Nails] hydrOXYzine pamoate [Vistaril] 100 mg PO TID PRN 05/17/20 04/04/21 oxyCODONE HCL/ACETAMINOPHEN 1 tab PO TID PRN 05/17/20 04/04/21 [Percocet 7.5-325 mg] Amitriptyline HCl 50 mg PO HS 01/24/21 04/04/21 Amphetamine [Adzenys Xr-Odt] 9.4 mg PO DAILY 03/19/21 04/04/21 Gabapentin [Neurontin] 200 mg PO TID 03/19/21 04/04/21 Prochlorperazine [Compazine] 10 mg PO Q6H PRN 03/19/21 04/04/21 Apixaban [Eliquis Starter Pack See Taper PO DIRECTED 04/03/21 04/04/21 (for VTE)] Previous Rx's Medication Instructions Recorded Metoclopramide [Reglan] 10 mg PO TID PRN #15 tab 09/19/20 Allergies Allergy/AdvReac Type Severity Reaction Status Date / Time adalimumab [From Humira] Allergy RASH/NAUSEA/VOMITING/JOINT Verified 04/09/21 19:57 PAIN amoxicillin trihydrate Allergy Rash/Hives Verified 04/09/21 19:57 [From Augmentin] potassium clavulanate Allergy Rash/Hives Verified 04/09/21 19:57 [From Augmentin] Review of Systems ROS Statement: Those systems with pertinent positive or pertinent negative responses have been documented in the HPI. ROS Other: All systems not noted in ROS Statement are negative. Past Medical History Past Medical History: No Reported History Additional Past Medical History / Comment(s): crohns, IBD, colitis dx of crohns at age 10., Bloodclots in right arm, PICC line. 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, MRSA Date of last positivie culture/infection: 2002, Jul 2019 cdiff MDRO Source:: Hip Past Surgical History: Bowel Resection, Cholecystectomy Additional Past Surgical History / Comment(s): wisdom teeth, bowel resection x 2 in 2017, sepsis after first surgery, 2 PICC lines removed, Port removed Past Anesthesia/Blood Transfusion Reactions: No Reported Reaction Past Psychological History: Anxiety, Bipolar, Depression, PTSD Smoking Status: Never smoker Past Alcohol Use History: None Reported Past Drug Use History: None Reported - Past Family History Mother Family Medical History: Cancer Father Family Medical History: No Reported History General Exam Limitations: no limitations General appearance: alert, in no apparent distress Head exam: Present: atraumatic, normocephalic, normal inspection Eye exam: Present: normal appearance, PERRL, EOMI. Absent: scleral icterus, conjunctival injection, periorbital swelling ENT exam: Present: normal exam, normal oropharynx, mucous membranes moist Neck exam: Present: normal inspection, full ROM. Absent: tenderness, meningismus, lymphadenopathy Respiratory exam: Present: normal lung sounds bilaterally. Absent: respiratory distress, wheezes, rales, rhonchi, stridor, chest wall tenderness, accessory muscle use, decreased breath sounds Cardiovascular Exam: Present: regular rate, normal rhythm, normal heart sounds. Absent: systolic murmur, diastolic murmur, rubs, gallop, clicks GI/Abdominal exam: Present: soft, tenderness (Diffuse). Absent: guarding, rebound, rigid, mass Extremities exam: Present: normal inspection, full ROM, normal capillary refill. Absent: tenderness, pedal edema, joint swelling, calf tenderness Back exam: Present: normal inspection, full ROM. Absent: tenderness, CVA tenderness (R), CVA tenderness (L), muscle spasm, paraspinal tenderness, vertebral tenderness Neurological exam: Present: alert, oriented X3, CN II-XII intact Psychiatric exam: Present: normal affect, normal mood Skin exam: Present: warm, dry, intact, normal color. Absent: rash, cyanosis, diaphoretic, erythema, petechiae, pallor, mottled Course Vital Signs 04/09/21 19:54 Temperature 98.5 F Pulse Rate 72 Respiratory 18 Rate Blood Pressure 110/70 O2 Sat by Pulse 96 Oximetry Medical Decision Making - Medical Decision Making Patient does not want any lab work or imaging done. She is here only for pain control since she is unable to take any oral medications. Mother is at bedside. They are agreeable to getting a shot of medication and then going home and going to bed. She has an appointment first thing in the morning at [facility] for endoscopy and colonoscopy for evaluation of Crohn's. Patient's mother at bedside states that she will stay with her tonight and bring her back if there is any complications. Case discussed with Dr. Mello who is agreeable to this plan of care. Disposition Clinical Impression: Abdominal pain Disposition: HOME SELF-CARE Condition: Good Instructions (If sedation given, give patient instructions): Abdominal Pain (ED) Additional Instructions: Return to the emergency room with any worsening pain, difficulty breathing or chest pain. Keep your appointment with [facility] in the morning. Have your mother stay with you tonneetu. Is patient prescribed a controlled substance at d/c from ED?: No Referrals: Charlotte Slade MD [Primary Care Provider] - 1-2 days Time of Disposition: 20:18
[2021-04-09 21:17] VITALS: BP 104/77; PULSE 68
== END 2021-04-09 21:09 | disposition home or self-care (01) ==
LOC: EC 19:36
DX: R10.84 Generalized abdominal pain (principal); F41.9 Anxiety disorder, unspecified; F31.9 Bipolar disorder, unspecified; F43.12 Post-traumatic stress disorder, chronic; Z88.1 Allergy status to other antibiotic agents; Z90.49 Acquired absence of other specified parts of digestive tract
CPT/HCPCS: 99283; 96372 ×2; J1200; J1170

== ENCOUNTER 2021-04-18 02:23 | Emergency (ER) | payer MEDICARE, OTHER ==
[2021-04-18 02:34] VITALS: RESP 18
[2021-04-18] MEDS ORDERED: diphenhydrAMINE 50 MG/ML 1 ML VIAL IVP STA (02:43)
[2021-04-18] MEDS ORDERED: SODIUM CHLORIDE 0.9% 1,000 ML IV STA (02:43)
[2021-04-18] MEDS ORDERED: HYDROmorphone 1 MG/ML 1 ML SYRINGE IVP STA (02:43)
[2021-04-18] MEDS ORDERED: PANTOPRAZOLE 40 MG/10 ML VIAL IVP STA (02:43)
[2021-04-18] MEDS ORDERED: PROCHLORPERAZINE INJ 10 MG/2 ML VIAL IVP STA (02:43)
--- NOTE | 2021-04-18 02:45 | ED ---
Recheck HPI - General Chief Complaint: Abdominal Pain Stated Complaint: Crohns Flare Time Seen by Provider: 04/18/21 02:28 Source: patient, RN notes reviewed, old records reviewed Mode of arrival: ambulatory Limitations: no limitations - History of Present Illness Initial Comments: This is a 26-year-old female to the emergency room today. Patient's pain today for evaluation of just significant abdominal pain related to Crohn's disease. Patient has history of Crohn's disease. Patient states she's been nausea vomiting and unable to keep down medications at home. Patient presents today for evaluation of pain control, no fevers no other complaints MD Complaint: medication refill request -: days(s) Returns Today for: persistent/worsening pain related to initial visit Symptoms Since Prior Visit: worsening pain Context: ran out of medication Associated Symptoms: malaise, nausea, abdominal pain Treatments Prior to Arrival: other medications, Given Pain Meds on - Related Data Home Medications Medication Instructions Recorded Confirmed Medroxyprogesterone Acetate 150 mg IM Q90D 03/10/18 04/27/21 [Depo-Provera] Lurasidone [Latuda] 80 mg PO HS 03/07/19 04/27/21 Benztropine Mesylate [Cogentin] 2 mg PO BID 12/06/19 04/27/21 Ustekinumab [Stelara] 90 mg IM Q56D 12/06/19 04/27/21 Dicyclomine [Bentyl] 10 mg PO BID PRN 05/17/20 04/27/21 FLUoxetine HCL [PROzac Weekly] 90 mg PO WE 05/17/20 04/27/21 hydrOXYzine pamoate [Vistaril] 100 mg PO TID PRN 05/17/20 04/27/21 oxyCODONE HCL/ACETAMINOPHEN 1 tab PO BID 05/17/20 04/27/21 [Percocet 7.5-325 mg] Amphetamine [Adzenys Xr-Odt] 9.4 mg PO DAILY 03/19/21 04/27/21 Cephalexin [Keflex] 500 mg PO Q12HR 04/27/21 04/27/21 Omeprazole 20 mg PO BID 04/27/21 04/27/21 Previous Rx's Medication Instructions Recorded Prochlorperazine [Compazine] 10 mg PO Q8H #60 tab 04/18/21 Allergies Allergy/AdvReac Type Severity Reaction Status Date / Time adalimumab [From Humira] Allergy RASH/NAUSEA/VOMITING/JOINT Verified 04/27/21 13:46 PAIN amoxicillin trihydrate Allergy Rash/Hives Verified 04/27/21 13:46 [From Augmentin] potassium clavulanate Allergy Rash/Hives Verified 04/27/21 13:46 [From Augmentin] Review of Systems ROS Statement: Those systems with pertinent positive or pertinent negative responses have been documented in the HPI. ROS Other: All systems not noted in ROS Statement are negative. Past Medical History Past Medical History: No Reported History Additional Past Medical History / Comment(s): crohns, IBD, colitis dx of crohns at age 10., Bloodclots in right arm, PICC line. 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, MRSA Date of last positivie culture/infection: 2002, Jul 2019 cdiff MDRO Source:: Hip Past Surgical History: Bowel Resection, Cholecystectomy Additional Past Surgical History / Comment(s): wisdom teeth, bowel resection x 2 in 2017, sepsis after first surgery, 2 PICC lines removed, Port removed Past Anesthesia/Blood Transfusion Reactions: No Reported Reaction Past Psychological History: Anxiety, Bipolar, Depression, PTSD Smoking Status: Never smoker Past Alcohol Use History: None Reported Past Drug Use History: None Reported - Past Family History Mother Family Medical History: Cancer Father Family Medical History: No Reported History General Exam Limitations: no limitations General appearance: alert, in no apparent distress Head exam: Present: atraumatic, normocephalic, normal inspection Eye exam: Present: normal appearance, PERRL, EOMI. Absent: scleral icterus, conjunctival injection, periorbital swelling ENT exam: Present: normal exam, mucous membranes moist Neck exam: Present: normal inspection. Absent: tenderness, meningismus, lymphadenopathy Respiratory exam: Present: normal lung sounds bilaterally. Absent: respiratory distress, wheezes, rales, rhonchi, stridor Cardiovascular Exam: Present: regular rate, normal rhythm, normal heart sounds. Absent: systolic murmur, diastolic murmur, rubs, gallop, clicks GI/Abdominal exam: Present: soft, normal bowel sounds. Absent: distended, tenderness, guarding, rebound, rigid Extremities exam: Present: normal inspection, full ROM, normal capillary refill. Absent: tenderness, pedal edema, joint swelling, calf tenderness Back exam: Present: normal inspection Neurological exam: Present: alert, oriented X3, CN II-XII intact Psychiatric exam: Present: normal affect, normal mood Skin exam: Present: warm, dry, intact, normal color. Absent: rash Course Vital Signs 04/18/21 04/18/21 04/18/21 02:31 03:31 05:15 Temperature 98.4 F 97.9 F Pulse Rate 85 62 79 Respiratory 18 18 18 Rate Blood Pressure 112/77 94/67 97/74 O2 Sat by Pulse 98 98 97 Oximetry - Reevaluation(s) Reevaluation #1: 04/18/21 Medical record is reviewed Symptoms are improved here in the emergency department Patient informed results and questions answered Patient is in no acute distress Medical Decision Making - Medical Decision Making 26 female to the emergency department for evaluation of chronic abdominal pain related to Crohn's disease with nausea vomiting. Symptoms resolved here in the ER and can be discharged home - Lab Data Result diagrams: 04/18/21 02:48 04/18/21 02:48 Lab Results 04/18/21 04/18/21 Range/Units 02:48 02:48 WBC 7.8 (3.8-10.6) k/uL RBC 3.97 (3.80-5.40) m/uL Hgb 12.9 (11.4-16.0) gm/dL Hct 37.5 (34.0-46.0) % MCV 94.5 (80.0-100.0) fL MCH 32.4 (25.0-35.0) pg MCHC 34.3 (31.0-37.0) g/dL RDW 13.2 (11.5-15.5) % Plt Count 209 (150-450) k/uL MPV 8.5 Neutrophils % 56 % Lymphocytes % 35 % Monocytes % 5 % Eosinophils % 1 % Basophils % 0 % Neutrophils # 4.4 (1.3-7.7) k/uL Lymphocytes # 2.8 (1.0-4.8) k/uL Monocytes # 0.4 (0-1.0) k/uL Eosinophils # 0.1 (0-0.7) k/uL Basophils # 0.0 (0-0.2) k/uL Sodium 138 (137-145) mmol/L Potassium 3.4 L (3.5-5.1) mmol/L Chloride 109 H (98-107) mmol/L Carbon Dioxide 23 (22-30) mmol/L Anion Gap 6 mmol/L BUN 8 (7-17) mg/dL Creatinine 0.48 L (0.52-1.04) mg/dL Est GFR (CKD-EPI)AfAm >90 (>60 ml/min/1.73 sqM) Est GFR (CKD-EPI)NonAf >90 (>60 ml/min/1.73 sqM) Glucose 110 H (74-99) mg/dL Calcium 8.9 (8.4-10.2) mg/dL Total Bilirubin <0.1 L (0.2-1.3) mg/dL AST 30 (14-36) U/L ALT 10 (4-34) U/L Alkaline Phosphatase 58 (38-126) U/L Total Protein 6.2 L (6.3-8.2) g/dL Albumin 3.6 (3.5-5.0) g/dL Lipase 152 (23-300) U/L Disposition Clinical Impression: Abdominal pain, Exacerbation of Crohn's disease, Crohn disease Disposition: HOME SELF-CARE Condition: Good Instructions (If sedation given, give patient instructions): Abdominal Pain (ED) Prescriptions: Prochlorperazine [Compazine] 10 mg PO Q8H #60 tab Is patient prescribed a controlled substance at d/c from ED?: No Referrals: Charlotte Slade MD [Primary Care Provider] - 1-2 days
[2021-04-18 03:20] LABS: Basophils % (A) 0 %; Eosinophils # (A) 0.1 k/uL (0-0.7); Eosinophils % (A) 1 %; HCT 37.5 % (34.0-46.0); HGB 12.9 gm/dL (11.4-16.0); Lymphocytes # (A) 2.8 k/uL (1.0-4.8); Lymphocytes % (A) 35 %; MCH 32.4 pg (25.0-35.0); MCHC 34.3 g/dL (31.0-37.0); MCV 94.5 fL (80.0-100.0); Mean Platelet Volume 8.5; Monocytes # (A) 0.4 k/uL (0-1.0); Monocytes % (A) 5 %; Neutrophils # (A) 4.4 k/uL (1.3-7.7); Neutrophils % (A) 56 %; Platelet Count 209 k/uL (150-450); RBC 3.97 m/uL (3.80-5.40); RDW 13.2 % (11.5-15.5); WBC 7.8 k/uL (3.8-10.6)
--- NOTE | 2021-04-18 03:24 | XR ---
EXAMINATION TYPE: XR KUB DATE OF EXAM: 04/18/2021 COMPARISON: 04/03/2021 HISTORY: Abdominal pain TECHNIQUE: 2 views upright FINDINGS: Bowel gas pattern is normal. There is no sign of intestinal obstruction or pneumoperitoneum . Fecal pattern is normal. Lung bases are clear. There are no pathologic calcifications over the kidn eys. Bony structures are intact. IMPRESSION: Nonacute abdomen. No change.
[2021-04-18 04:11] LABS: ALT 10 U/L (4-34); AST 30 U/L (14-36); African American GFR (CKD) >90 (>60 ml/min/1.73 sqM); Albumin 3.6 g/dL (3.5-5.0); Alkaline Phosphatase 58 U/L (38-126); Anion Gap 6 mmol/L; Blood Urea Nitrogen 8 mg/dL (7-17); Calcium 8.9 mg/dL (8.4-10.2); Carbon Dioxide 23 mmol/L (22-30); Chloride 109 mmol/L (98-107); Glucose 110 mg/dL (74-99); Lipase 152 U/L (23-300); Non-African American GFR(CKD) >90 (>60 ml/min/1.73 sqM); Potassium 3.4 mmol/L (3.5-5.1); Sodium 138 mmol/L (137-145); Total Bilirubin <0.1 mg/dL (0.2-1.3); Total Protein 6.2 g/dL (6.3-8.2)
[2021-04-18] MEDS ORDERED: HYDROmorphone 0.5 MG/0.5 ML SYRINGE IVP STA (04:21)
[2021-04-18 05:30] VITALS: BP 97/74; PULSE 79; TEMP 97.9
== END 2021-04-18 05:15 | disposition home or self-care (01) ==
LOC: EC 02:23
DX: K50.90 Crohn's disease, unspecified, without complications (principal); F31.9 Bipolar disorder, unspecified; F41.9 Anxiety disorder, unspecified; Z79.899 Other long term (current) drug therapy; Z79.3 Long term (current) use of hormonal contraceptives; Z88.0 Allergy status to penicillin; Z88.1 Allergy status to other antibiotic agents; Z90.49 Acquired absence of other specified parts of digestive tract
CPT/HCPCS: 36415; 80053; 83690; 85025; 74018; 96374; 96375 ×3; 96376; 96361; 99284; J1200; J0780; J1170 ×2; C9113

== ENCOUNTER → 2021-04-20 | Outpatient (CLI) | payer MEDICARE, OTHER ==
[2021-04-20 09:01] VITALS: BP 124/83; PULSE 102; RESP 15; TEMP 99
== END ==
LOC: PROCWHC3 08:41
PROVIDERS: ATTEND Family Medicine
DX: K50.819 Crohn's disease of both small and large intestine with unspecified complications (principal); R11.2 Nausea with vomiting, unspecified; Z45.2 Encounter for adjustment and management of vascular access device; Z88.1 Allergy status to other antibiotic agents; Z88.8 Allergy status to other drugs, medicaments and biological substances
CPT/HCPCS: 99211

== ENCOUNTER 2021-04-27 12:03 | Emergency (ER) | payer MEDICARE, OTHER ==
[2021-04-27 12:14] VITALS: TEMP 98
[2021-04-27] MEDS ORDERED: HYDROmorphone 0.5 MG/0.5 ML SYRINGE IVP STA (12:51)
--- NOTE | 2021-04-27 12:53 | ED ---
General Adult HPI - General Chief complaint: Chest Pain Stated complaint: Chest Pain, Possible Blood clot Time Seen by Provider: 04/27/21 12:22 Source: patient Mode of arrival: wheelchair Limitations: no limitations - History of Present Illness Initial comments: Dictation was produced using [employer] dictation software. please excuse any grammatical, word or spelling errors. Chief Complaint: 26-year-old female presents to the emergency department for concerns of PE and DVT History of Present Illness: 26-year-old female with extensive history of PEs and DVTs presents to the emergency department for concerns of DVT and PE. Patient was just stopped from taking her eliquis last week. She has started having multiple DVTs earlier this year. Patient states that she underwent extensive workup for causes of thromboembolism with no apparent cause. States that over the last couple days she is been experiencing pleuritic chest pain to her right anterior chest. She also feels that she has symptoms similar to when she's been diagnosed with DVT in the past. She has achy right upper extremity pain that radiates into the right chest. She also has left-sided calf pain. Patient has a history of Crohn's disease which led to her getting a PICC line and then a port. She's been tested for clot disorders which she reports have been negative. Denies any coughing. No fevers. States that her symptoms feel similar to when she's been diagnosed with thromboembolism's in the past. Denies . She has had the depot shot. The ROS documented in this emergency department record has been reviewed and confirmed by me. Those systems with pertinent positive or negative responses have been documented in the HPI. All other systems are other negative and/or noncontributory. PHYSICAL EXAM: General Impression: Alert and oriented x3, not in acute distress HEENT: Normocephalic atraumatic, extra-ocular movements intact, pupils equal and reactive to light bilaterally, mucous membranes moist. Cardiovascular: Heart regular rate and rhythm Chest: Able to complete full sentences, no retractions, no tachypnea Abdomen: abdomen soft, non-tender, non-distended, no organomegaly Musculoskeletal: Pulses present and equal in all extremities, no peripheral edema Motor: no focal deficits noted Neurological: CN II-XII grossly intact, no focal motor or sensory deficits noted Skin: Intact with no visualized rashes Psych: Normal affect and mood ED course: 26-year-old female presents to the emergency department with chest pain, shortness of breath right upper extremity ache and left calf tenderness. She is extensive history of thromboembolism. Vital signs upon arrival are within acceptable limits. EKG does not suggest right heart strain. Lab data evaluation obtained. CBC, coag panel is unremarkable. D-dimer 0.57, metabolic panel is negative. CT angios the chest, chest x-ray, venous Doppler of the right upper extremity and left lower extremity reveals no evidence of DVT or PE. Patient's pain is atypical likely pleurisy. No cough acute fractures noted. Patient observed in emergency department for more than 3 hours. She is reevaluated at bedside at 3:45 PM vitamin stable medical condition. Patient discharged told to follow-up with primary care doctor. EKG interpretation: Ventricular rate 87, normal sinus rhythm, NE interval 132, QRS 86, QTC 450. No NE prolongation, no QTC prolongation, no ST or T-wave ch anges noted. Overall, this EKG is unremarkable - Related Data Home Medications Medication Instructions Recorded Confirmed Medroxyprogesterone Acetate 150 mg IM Q90D 03/10/18 04/27/21 [Depo-Provera] Lurasidone [Latuda] 80 mg PO HS 03/07/19 04/27/21 Benztropine Mesylate [Cogentin] 2 mg PO BID 12/06/19 04/27/21 Ustekinumab [Stelara] 90 mg IM Q56D 12/06/19 04/27/21 Dicyclomine [Bentyl] 10 mg PO BID PRN 05/17/20 04/27/21 FLUoxetine HCL [PROzac Weekly] 90 mg PO WE 05/17/20 04/27/21 hydrOXYzine pamoate [Vistaril] 100 mg PO TID PRN 05/17/20 04/27/21 oxyCODONE HCL/ACETAMINOPHEN 1 tab PO BID 05/17/20 04/27/21 [Percocet 7.5-325 mg] Amphetamine [Adzenys Xr-Odt] 9.4 mg PO DAILY 03/19/21 04/27/21 Cephalexin [Keflex] 500 mg PO Q12HR 04/27/21 04/27/21 Omeprazole 20 mg PO BID 04/27/21 04/27/21 Previous Rx's Medication Instructions Recorded Prochlorperazine [Compazine] 10 mg PO Q8H #60 tab 04/18/21 Allergies Allergy/AdvReac Type Severity Reaction Status Date / Time adalimumab [From Humira] Allergy RASH/NAUSEA/VOMITING/JOINT Verified 04/27/21 13:46 PAIN amoxicillin trihydrate Allergy Rash/Hives Verified 04/27/21 13:46 [From Augmentin] potassium clavulanate Allergy Rash/Hives Verified 04/27/21 13:46 [From Augmentin] Review of Systems ROS Statement: Those systems with pertinent positive or pertinent negative responses have been documented in the HPI. ROS Other: All systems not noted in ROS Statement are negative. Past Medical History Past Medical History: No Reported History Additional Past Medical History / Comment(s): crohns, IBD, colitis dx of crohns at age 10., Bloodclots in right arm, PICC line. 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, MRSA Date of last positivie culture/infection: 2002, Jul 2019 cdiff MDRO Source:: Hip Past Surgical History: Bowel Resection, Cholecystectomy Additional Past Surgical History / Comment(s): wisdom teeth, bowel resection x 2 in 2017, sepsis after first surgery, 2 PICC lines removed, Port removed Past Anesthesia/Blood Transfusion Reactions: No Reported Reaction Past Psychological History: Anxiety, Bipolar, Depression, PTSD Smoking Status: Never smoker Past Alcohol Use History: None Reported Past Drug Use History: None Reported - Past Family History Mother Family Medical History: Cancer Father Family Medical History: No Reported History General Exam Limitations: no limitations Course Vital Signs 04/27/21 04/27/21 04/27/21 12:12 12:36 12:40 Temperature 98 F Pulse Rate 93 89 Pulse Rate [ 88 Stapler Machine ] Respiratory 16 24 24 Rate Blood Pressure 112/81 115/46 O2 Sat by Pulse 99 100 Oximetry Medical Decision Making - Lab Data Result diagrams: 04/27/21 12:33 04/27/21 12:33 Lab Results 04/27/21 04/27/21 04/27/21 Range/Units 12:33 12:33 12:33 WBC 4.0 (3.8-10.6) k/uL RBC 4.39 (3.80-5.40) m/uL Hgb 13.9 (11.4-16.0) gm/dL Hct 40.8 (34.0-46.0) % MCV 92.9 (80.0-100.0) fL MCH 31.6 (25.0-35.0) pg MCHC 34.0 (31.0-37.0) g/dL RDW 13.3 (11.5-15.5) % Plt Count 185 (150-450) k/uL MPV 8.0 Neutrophils % (Manual) 59 % Lymphocytes % (Manual) 33 % Monocytes % (Manual) 6 % Eosinophils % (Manual) 1 % Basophils % (Manual) 1 % Neutrophils # (Manual) 2.36 (1.3-7.7) k/uL Lymphocytes # (Manual) 1.32 (1.0-4.8) k/uL Monocytes # (Manual) 0.24 (0-1.0) k/uL Eosinophils # (Manual) 0.04 (0-0.7) k/uL Basophils # (Manual) 0.04 (0-0.2) k/uL Nucleated RBCs 0 (0-0) /100 WBC Manual Slide Review Performed PT 10.4 (9.0-12.0) sec INR 1.0 (<1.2) APTT 46.2 H (22.0-30.0) sec D-Dimer 0.57 (<0.60) mg/L FEU Sodium 138 (137-145) mmol/L Potassium 3.7 (3.5-5.1) mmol/L Chloride 105 (98-107) mmol/L Carbon Dioxide 23 (22-30) mmol/L Anion Gap 10 mmol/L BUN 6 L (7-17) mg/dL Creatinine 0.45 L (0.52-1.04) mg/dL Est GFR (CKD-EPI)AfAm >90 (>60 ml/min/1.73 sqM) Est GFR (CKD-EPI)NonAf >90 (>60 ml/min/1.73 sqM) Glucose 96 (74-99) mg/dL Calcium 8.5 (8.4-10.2) mg/dL Disposition Clinical Impression: Chest pain Disposition: HOME SELF-CARE Condition: Good Instructions (If sedation given, give patient instructions): Chest Pain (ED) Is patient prescribed a controlled substance at d/c from ED?: No Referrals: Charlotte Slade MD [Primary Care Provider] - 1-2 days
[2021-04-27 13:08] LABS: African American GFR (CKD) >90 (>60 ml/min/1.73 sqM); Anion Gap 10 mmol/L; Blood Urea Nitrogen 6 mg/dL (7-17); Calcium 8.5 mg/dL (8.4-10.2); Carbon Dioxide 23 mmol/L (22-30); Chloride 105 mmol/L (98-107); Glucose 96 mg/dL (74-99); Non-African American GFR(CKD) >90 (>60 ml/min/1.73 sqM); Potassium 3.7 mmol/L (3.5-5.1); Sodium 138 mmol/L (137-145)
[2021-04-27 13:18] LABS: Partial Thromboplastin Time 46.2 sec (22.0-30.0); Prothrombin Time 10.4 sec (9.0-12.0)
[2021-04-27 13:20] LABS: HCT 40.8 % (34.0-46.0); HGB 13.9 gm/dL (11.4-16.0); MCH 31.6 pg (25.0-35.0); MCV 92.9 fL (80.0-100.0); Platelet Count 185 k/uL (150-450); RBC 4.39 m/uL (3.80-5.40); RDW 13.3 % (11.5-15.5)
--- NOTE | 2021-04-27 13:25 | CT ---
EXAMINATION TYPE: CT angio chest DATE OF EXAM: 04/27/2021 COMPARISON: 08/07/2020 HISTORY: Chest pains CT DLP: 212.6 mGycm CONTRAST: CT chest with contrast and 3D reconstruction with MIP imaging is performed with IV Contrast, patient injected with 100, wasted 28 mL of Isovue 370. Contrast-enhanced CT of the chest was performed through the course of the pulmonary arteries with bee g and mediastinal window settings submitted. 3D reconstruction with MIP imaging was also performed. PULMONARY ARTERIES: The pulmonary arteries and their major tributaries are patent. I do not see em dence for sizable filling defect to suggest pulmonary embolic process. LUNGS: The lungs are clear and free of infiltrate. No evidence for atelectasis. No pulmonary nodule or mass is detected. No pleural effusion. MEDIASTINUM: Thoracic aorta is of normal caliber,however, evaluation is limited given timing of the contrast bolus. If there is concern for thoracic aortic pathology consider GERARDO. Correlate clinicall y . The heart is not enlarged. No evidence for mediastinal mass. No mediastinal lymph nodes greater than 1cm. HILAR STRUCTURES: No evidence for mass. No hilar lymph nodes greater than 1 cm. UPPER ABDOMEN: No significant abnormality is seen. IMPRESSION: 1. No evidence for Pulmonary embolism at this time.
--- NOTE | 2021-04-27 13:32 | XR ---
EXAMINATION TYPE: XR chest 1V portable DATE OF EXAM: 04/27/2021 COMPARISON: 03/12/2021 INDICATION: Chest pain short of breath TECHNIQUE: Single frontal view of the chest is obtained. FINDINGS: The heart size is normal. The pulmonary vasculature is normal. The lungs are clear. PICC line enters on the right with the tip in the distal superior vena cava region. IMPRESSION: 1. No acute pulmonary process.
[2021-04-27 13:39] LABS: Basophils # (M) 0.04 k/uL (0-0.2); Eosinophils # (M) 0.04 k/uL (0-0.7); Lymphocytes # (M) 1.32 k/uL (1.0-4.8); Monocytes # (M) 0.24 k/uL (0-1.0); Neutrophils # (M) 2.36 k/uL (1.3-7.7); Neutrophils % (M) 59 %; Nucleated Red Blood Cells 0 /100 WBC (0-0); Total Cells Counted 100
--- NOTE | 2021-04-27 14:47 | US ---
EXAMINATION TYPE: US venous doppler duplex UE RT DATE OF EXAM: 04/27/2021 COMPARISON: NONE CLINICAL HISTORY: suspect dvt. pain near previous port site in right chest, assess for DVT SIDE PERFORMED: Right Right Arm: Negative for DVT PICC line in Basilic vein was patent IMPRESSION: 1. Right upper extremity ultrasound negative for deep venous thrombosis. 2. No suspicious thrombosis adjacent to the PICC line within the basilic vein or subclavian vein.
--- NOTE | 2021-04-27 14:50 | US ---
EXAMINATION TYPE: US venous doppler duplex LE LT DATE OF EXAM: 04/27/2021 2:18 PM COMPARISON: NONE CLINICAL HISTORY: suspect dvt. swollen posterior left knee and pain SIDE PERFORMED: Left TECHNIQUE: The lower extremity deep venous system is examined utilizing real time linear array sonog luis with graded compression, doppler sonography and color-flow sonography. VESSELS IMAGED: Common Femoral Vein Deep Femoral Vein Greater Saphenous Vein * Femoral Vein Popliteal Vein Small Saphenous Vein * Proximal Calf Veins (* superficial vessels) Left Leg: Negative for DVT IMPRESSION: 1. Left lower extremity ultrasound negative for deep venous thrombosis
[2021-04-27 16:20] VITALS: BP 104/62; PULSE 79; RESP 16
== END 2021-04-27 16:19 | disposition home or self-care (01) ==
LOC: EC 12:03
DX: R07.9 Chest pain, unspecified (principal); F41.9 Anxiety disorder, unspecified; F31.9 Bipolar disorder, unspecified; F43.10 Post-traumatic stress disorder, unspecified; Z79.899 Other long term (current) drug therapy
CPT/HCPCS: 36415; 93005; 85379; 80048; 85025; 85610; 85730; 71045; 93971 ×2; 71275; 99285; 96374; J1170; Q9967

== ENCOUNTER → 2021-05-10 | Outpatient (CLI) | payer MEDICARE, OTHER ==
[2021-05-10 09:45] VITALS: BP 114/77; PULSE 90; RESP 16; TEMP 98.6
== END ==
LOC: PROCWHC3 09:21
PROVIDERS: ATTEND Family Medicine
DX: R11.2 Nausea with vomiting, unspecified (principal); K50.90 Crohn's disease, unspecified, without complications

== ENCOUNTER 2021-06-15 00:29 | Emergency (ER) | payer MEDICARE, OTHER ==
[2021-06-15 00:39] VITALS: TEMP 99.5
[2021-06-15] MEDS ORDERED: ONDANSETRON 4 MG/2 ML VIAL IVP STA (00:51)
[2021-06-15] MEDS ORDERED: SODIUM CHLORIDE 0.9% 1,000 ML IV STA (00:51)
[2021-06-15] MEDS ORDERED: HYDROmorphone 1 MG/ML 1 ML SYRINGE IVP STA ×2 (00:51→02:27)
[2021-06-15 01:29] LABS: Basophils # (A) 0.1 k/uL (0-0.2); Basophils % (A) 0 %; Eosinophils # (A) 0.1 k/uL (0-0.7); Eosinophils % (A) 1 %; HCT 40.9 % (34.0-46.0); HGB 13.4 gm/dL (11.4-16.0); Lymphocytes % (A) 17 %; MCH 30.2 pg (25.0-35.0); MCHC 32.6 g/dL (31.0-37.0); MCV 92.7 fL (80.0-100.0); Monocytes # (A) 0.6 k/uL (0-1.0); Monocytes % (A) 5 %; Neutrophils # (A) 8.4 k/uL (1.3-7.7); Neutrophils % (A) 75 %; Platelet Count 243 k/uL (150-450); RBC 4.42 m/uL (3.80-5.40); RDW 12.9 % (11.5-15.5); WBC 11.2 k/uL (3.8-10.6)
[2021-06-15 01:33] LABS: Amorphous Sediment,Urine Rare /hpf; Appearance,Urine Cloudy (Clear); Bacteria,Urine Rare /hpf; Bilirubin,Urine Negative (Negative); Blood,Urine Large (Negative); Color,Urine Yellow; Glucose,Urine (UA) Negative (Negative); Hyaline Casts,Urine 8 /lpf (0-2); Ketones,Urine Negative (Negative); Leukocyte Esterase,Urine Small (Negative); Mucus,Urine Occasional /hpf; Nitrite,Urine Negative (Negative); PH, Urine 6.5 (5.0-8.0); Protein,Urine Trace (Negative); RBC,Urine 3 /hpf (0-5); Specific Gravity,Urine 1.027 (1.001-1.035); Squamous Epithelial Cell,Urine 12 /hpf (0-4); Urobilinogen,Urine <2.0 mg/dL (<2.0); WBC,Urine 7 /hpf (0-5)
[2021-06-15 01:43] LABS: ALT 20 U/L (4-34); AST 22 U/L (14-36); African American GFR (CKD) >90 (>60 ml/min/1.73 sqM); Alkaline Phosphatase 66 U/L (38-126); Anion Gap 9 mmol/L; Blood Urea Nitrogen 11 mg/dL (7-17); Calcium 8.9 mg/dL (8.4-10.2); Carbon Dioxide 22 mmol/L (22-30); Chloride 106 mmol/L (98-107); Glucose 99 mg/dL (74-99); Lipase 116 U/L (23-300); Non-African American GFR(CKD) >90 (>60 ml/min/1.73 sqM); Potassium 3.8 mmol/L (3.5-5.1); Sodium 137 mmol/L (137-145); Total Bilirubin 0.2 mg/dL (0.2-1.3); Total Protein 7.5 g/dL (6.3-8.2)
--- NOTE | 2021-06-15 02:18 | ED ---
Abdominal Pain HPI - General Chief Complaint: Abdominal Pain Stated Complaint: Abdominal Pain Time Seen by Provider: 06/15/21 00:43 Source: patient, family Mode of arrival: ambulatory Limitations: no limitations - History of Present Illness Initial Comments: 26 year-old female patient with past history of crohn's disease currently maintained on stellara injections, presents for evaluation of left flank pain. Patient states pain started shortly after receiving her injection. She denies history of this happening or of this type of pain. States she feels somewhat nauseated. Denies vomiting or diarrhea. Denies any fever or chills. Denies hematuria, dysuria, urinary urgency, or urinary frequency. Denies any concern for . - Related Data Home Medications Medication Instructions Recorded Confirmed Medroxyprogesterone Acetate 150 mg IM Q90D 03/10/18 05/10/21 [Depo-Provera] Lurasidone [Latuda] 80 mg PO HS 03/07/19 05/10/21 Benztropine Mesylate [Cogentin] 2 mg PO BID 12/06/19 05/10/21 Ustekinumab [Stelara] 90 mg IM Q56D 12/06/19 05/10/21 Dicyclomine [Bentyl] 10 mg PO BID PRN 05/17/20 05/10/21 FLUoxetine HCL [PROzac Weekly] 90 mg PO WE 05/17/20 05/10/21 hydrOXYzine pamoate [Vistaril] 100 mg PO TID PRN 05/17/20 05/10/21 oxyCODONE HCL/ACETAMINOPHEN 1 tab PO BID 05/17/20 05/10/21 [Percocet 7.5-325 mg] Amphetamine [Adzenys Xr-Odt] 9.4 mg PO DAILY 03/19/21 05/10/21 Cephalexin [Keflex] 500 mg PO Q12HR 04/27/21 05/10/21 Omeprazole 20 mg PO BID 04/27/21 05/10/21 Previous Rx's Medication Instructions Recorded Prochlorperazine [Compazine] 10 mg PO Q8H #60 tab 04/18/21 Allergies Allergy/AdvReac Type Severity Reaction Status Date / Time adalimumab [From Humira] Allergy RASH/NAUSEA/VOMITING/JOINT Verified 06/15/21 00:39 PAIN amoxicillin trihydrate Allergy Rash/Hives Verified 06/15/21 00:39 [From Augmentin] potassium clavulanate Allergy Rash/Hives Verified 06/15/21 00:39 [From Augmentin] Review of Systems ROS Statement: Those systems with pertinent positive or pertinent negative responses have been documented in the HPI. ROS Other: All systems not noted in ROS Statement are negative. Past Medical History Past Medical History: No Reported History Additional Past Medical History / Comment(s): crohns, IBD, colitis dx of crohns at age 10., Bloodclots in right arm, PICC line. 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, MRSA Date of last positivie culture/infection: 2002, Jul 2019 cdiff MDRO Source:: Hip Past Surgical History: Bowel Resection, Cholecystectomy Additional Past Surgical History / Comment(s): wisdom teeth, bowel resection x 2 in 2017, sepsis after first surgery, 2 PICC lines removed, Port removed Past Anesthesia/Blood Transfusion Reactions: No Reported Reaction Past Psychological History: Anxiety, Bipolar, Depression, PTSD Smoking Status: Never smoker Past Alcohol Use History: None Reported Past Drug Use History: None Reported - Past Family History Mother Family Medical History: Cancer Father Family Medical History: No Reported History General Exam Limitations: no limitations General appearance: alert, in no apparent distress, other (This is a well- developed, well-nourished adult female patient in no acute distress.) Eye exam: Present: normal appearance, PERRL, EOMI. Absent: scleral icterus, conjunctival injection, periorbital swelling ENT exam: Present: normal exam, normal oropharynx, mucous membranes moist Respiratory exam: Present: normal lung sounds bilaterally. Absent: respiratory distress, wheezes, rales, rhonchi, stridor Cardiovascular Exam: Present: regular rate, normal rhythm, normal heart sounds. Absent: systolic murmur, diastolic murmur, rubs, gallop, clicks GI/Abdominal exam: Present: soft, tenderness (Left lower quadrant), normal bowel sounds. Absent: distended, guarding, rebound, rigid Back exam: Present: CVA tenderness (L). Absent: CVA tenderness (R) Neurological exam: Present: alert, oriented X3, CN II-XII intact Psychiatric exam: Present: normal affect, normal mood Skin exam: Present: warm, dry, intact, normal color. Absent: rash Course Vital Signs 10/22/21 10/22/21 00:35 02:40 Temperature 99.5 F Pulse Rate 83 74 Respiratory 22 18 Rate Blood Pressure 112/76 135/78 O2 Sat by Pulse 100 98 Oximetry Medical Decision Making - Medical Decision Making 26 year-old female patient presented for evaluation of left flank pain. She does have history of Crohn's disease. Pain is different from her usual. Labs reviewed and did reveal mildly elevated white blood cell count 11.2. CMP was unremarkable. Urinalysis did show 7 white blood cells though with contamination with squamous epithelial cells. I did discuss findings results with her. She was discharged follow up with primary care physician for recheck in 1-2 days. Return parameters were discussed in detail. She verbalizes understanding and agrees with this plan. This is my attending Dr. Hines. - Lab Data Result diagrams: 06/15/21 01:21 06/15/21 01:21 Lab Results 06/15/21 06/15/21 06/15/21 Range/Units 01:21 01:21 01:21 WBC 11.2 H (3.8-10.6) k/uL RBC 4.42 (3.80-5.40) m/uL Hgb 13.4 (11.4-16.0) gm/dL Hct 40.9 (34.0-46.0) % MCV 92.7 (80.0-100.0) fL MCH 30.2 (25.0-35.0) pg MCHC 32.6 (31.0-37.0) g/dL RDW 12.9 (11.5-15.5) % Plt Count 243 (150-450) k/uL MPV 8.0 Neutrophils % 75 % Lymphocytes % 17 % Monocytes % 5 % Eosinophils % 1 % Basophils % 0 % Neutrophils # 8.4 H (1.3-7.7) k/uL Lymphocytes # 2.0 (1.0-4.8) k/uL Monocytes # 0.6 (0-1.0) k/uL Eosinophils # 0.1 (0-0.7) k/uL Basophils # 0.1 (0-0.2) k/uL Sodium 137 (137-145) mmol/L Potassium 3.8 (3.5-5.1) mmol/L Chloride 106 (98-107) mmol/L Carbon Dioxide 22 (22-30) mmol/L Anion Gap 9 mmol/L BUN 11 (7-17) mg/dL Creatinine 0.52 (0.52-1.04) mg/dL Est GFR (CKD-EPI)AfAm >90 (>60 ml/min/1.73 sqM) Est GFR (CKD-EPI)NonAf >90 (>60 ml/min/1.73 sqM) Glucose 99 (74-99) mg/dL Plasma Lactic Acid Rehan (0.7-2.0) mmol/L Calcium 8.9 (8.4-10.2) mg/dL Total Bilirubin 0.2 (0.2-1.3) mg/dL AST 22 (14-36) U/L ALT 20 (4-34) U/L Alkaline Phosphatase 66 (38-126) U/L Total Protein 7.5 (6.3-8.2) g/dL Albumin 4.0 (3.5-5.0) g/dL Lipase 116 (23-300) U/L Urine Color Yellow Urine Appearance Cloudy H (Clear) Urine pH 6.5 (5.0-8.0) Ur Specific [place] 1.027 (1.001-1.035) Urine Protein Trace H (Negative) Urine Glucose (UA) Negative (Negative) Urine Ketones Negative (Negative) Urine Blood Large H (Negative) Urine Nitrite Negative (Negative) Urine Bilirubin Negative (Negative) Urine Urobilinogen <2.0 (<2.0) mg/dL Ur Leukocyte Esterase Small H (Negative) Urine RBC 3 (0-5) /hpf Urine WBC 7 H (0-5) /hpf Ur Squamous Epith Cells 12 H (0-4) /hpf Amorphous Sediment Rare H (None) /hpf Urine Bacteria Rare H (None) /hpf Hyaline Casts 8 H (0-2) /lpf Urine Mucus Occasional H (None) /hpf 06/15/21 Range/Units 01:21 WBC (3.8-10.6) k/uL RBC (3.80-5.40) m/uL Hgb (11.4-16.0) gm/dL Hct (34.0-46.0) % MCV (80.0-100.0) fL MCH (25.0-35.0) pg MCHC (31.0-37.0) g/dL RDW (11.5-15.5) % Plt Count (150-450) k/uL MPV Neutrophils % % Lymphocytes % % Monocytes % % Eosinophils % % Basophils % % Neutrophils # (1.3-7.7) k/uL Lymphocytes # (1.0-4.8) k/uL Monocytes # (0-1.0) k/uL Eosinophils # (0-0.7) k/uL Basophils # (0-0.2) k/uL Sodium (137-145) mmol/L Potassium (3.5-5.1) mmol/L Chloride (98-107) mmol/L Carbon Dioxide (22-30) mmol/L Anion Gap mmol/L BUN (7-17) mg/dL Creatinine (0.52-1.04) mg/dL Est GFR (CKD-EPI)AfAm (>60 ml/min/1.73 sqM) Est GFR (CKD-EPI)NonAf (>60 ml/min/1.73 sqM) Glucose (74-99) mg/dL Plasma Lactic Acid Rehan 1.3 (0.7-2.0) mmol/L Calcium (8.4-10.2) mg/dL Total Bilirubin (0.2-1.3) mg/dL AST (14-36) U/L ALT (4-34) U/L Alkaline Phosphatase (38-126) U/L Total Protein (6.3-8.2) g/dL Albumin (3.5-5.0) g/dL Lipase (23-300) U/L Urine Color Urine Appearance (Clear) Urine pH (5.0-8.0) Ur Specific [place] (1.001-1.035) Urine Protein (Negative) Urine Glucose (UA) (Negative) Urine Ketones (Negative) Urine Blood (Negative) Urine Nitrite (Negative) Urine Bilirubin (Negative) Urine Urobilinogen (<2.0) mg/dL Ur Leukocyte Esterase (Negative) Urine RBC (0-5) /hpf Urine WBC (0-5) /hpf Ur Squamous Epith Cells (0-4) /hpf Amorphous Sediment (None) /hpf Urine Bacteria (None) /hpf Hyaline Casts (0-2) /lpf Urine Mucus (None) /hpf Disposition Clinical Impression: Abdominal pain Disposition: HOME SELF-CARE Condition: Good Instructions (If sedation given, give patient instructions): Abdominal Pain (E D) Additional Instructions: Follow up with your primary care physician for recheck in 1-2 days. Return for any new, worsening, or concerning symptoms. Is patient prescribed a controlled substance at d/c from ED?: No Referrals: Charlotte Slade MD [Primary Care Provider] - 1-2 days Time of Disposition: 02:18
[2021-06-15 02:42] VITALS: BP 135/78; PULSE 74; RESP 18
== END 2021-06-15 02:42 | disposition home or self-care (01) ==
LOC: EC 00:29
DX: R10.32 Left lower quadrant pain (principal); F41.9 Anxiety disorder, unspecified; F31.9 Bipolar disorder, unspecified; F43.12 Post-traumatic stress disorder, chronic; Z88.1 Allergy status to other antibiotic agents; Z90.49 Acquired absence of other specified parts of digestive tract
CPT/HCPCS: 36415; 80053; 81001; 83605; 83690; 85025; 96361; 96374; 96375; 96376; 99284

== ENCOUNTER 2021-07-16 23:58 | Emergency (ER) | payer MEDICARE, OTHER ==
[2021-07-17 01:29] VITALS: BP 119/88; PULSE 100; RESP 22; TEMP 97.8
[2021-07-17] MEDS ORDERED: HYDROmorphone 1 MG/ML 1 ML SYRINGE IM STA (02:07)
[2021-07-17] MEDS ORDERED: ONDANSETRON ODT 4 MG TAB PO STA (02:07)
--- NOTE | 2021-07-17 02:34 | ED ---
Abdominal Pain HPI - General Source: patient, family, RN notes reviewed Mode of arrival: ambulatory Limitations: no limitations <Toro Suazo - Last Filed: 07/17/21 02:26> <Ana Moran - Last Filed: 07/18/21 23:43> - General Chief Complaint: Abdominal Pain Stated Complaint: Strep Throat Time Seen by Provider: 07/17/21 02:01 - History of Present Illness Initial Comments: Patient is a 26 she'll female that presents to the emergency department complaining of a sore throat and a Crohn's flareup. Patient notes that every time she gets antibiotics her Crohn's flares up. She notes that she has a sore throat. She no she can keep anything down. Patient notes she was on amoxicillin for strep throat which she is ALLERGIC to according to her chart. Patient Notes she's been on it for approximately 7 days. Patient denied other issues or complaints. He denied any chest pain shortness of breath headache dc sea vomiting diarrhea constipation fever fatigue chills. (Toro Suazo) - Related Data Home Medications Medication Instructions Recorded Confirmed Medroxyprogesterone Acetate 150 mg IM Q90D 03/10/18 05/10/21 [Depo-Provera] Lurasidone [Latuda] 80 mg PO HS 03/07/19 05/10/21 Benztropine Mesylate [Cogentin] 2 mg PO BID 12/06/19 05/10/21 Ustekinumab [Stelara] 90 mg IM Q56D 12/06/19 05/10/21 Dicyclomine [Bentyl] 10 mg PO BID PRN 05/17/20 05/10/21 FLUoxetine HCL [PROzac Weekly] 90 mg PO WE 05/17/20 05/10/21 hydrOXYzine pamoate [Vistaril] 100 mg PO TID PRN 05/17/20 05/10/21 oxyCODONE HCL/ACETAMINOPHEN 1 tab PO BID 05/17/20 05/10/21 [Percocet 7.5-325 mg] Amphetamine [Adzenys Xr-Odt] 9.4 mg PO DAILY 03/19/21 05/10/21 Cephalexin [Keflex] 500 mg PO Q12HR 04/27/21 05/10/21 Omeprazole 20 mg PO BID 04/27/21 05/10/21 Previous Rx's Medication Instructions Recorded Prochlorperazine [Compazine] 10 mg PO Q8H #60 tab 04/18/21 Azithromycin [Zithromax Z-pack (6 0 mg PO DIRECTED #6 tab 07/17/21 tabs)] Allergies Allergy/AdvReac Type Severity Reaction Status Date / Time adalimumab [From Humira] Allergy RASH/NAUSEA/VOMITING/JOINT Verified 07/17/21 01:29 PAIN amoxicillin trihydrate Allergy Rash/Hives Verified 07/17/21 01:29 [From Augmentin] potassium clavulanate Allergy Rash/Hives Verified 07/17/21 01:29 [From Augmentin] Review of Systems ROS Other: All systems not noted in ROS Statement are negative. <Toro Suazo - Last Filed: 07/17/21 02:26> ROS Other: All systems not noted in ROS Statement are negative. <Ana Moran - Last Filed: 07/18/21 23:43> ROS Statement: Those systems with pertinent positive or pertinent negative responses have been documented in the HPI. Past Medical History Past Medical History: No Reported History Additional Past Medical History / Comment(s): crohns, IBD, colitis dx of crohns at age 10., Bloodclots in right arm, PICC line. 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, MRSA Date of last positivie culture/infection: 2002, Jul 2019 cdiff MDRO Source:: Hip Past Surgical History: Bowel Resection, Cholecystectomy Additional Past Surgical History / Comment(s): wisdom teeth, bowel resection x 2 in 2017, sepsis after first surgery, 2 PICC lines removed, Port removed Past Anesthesia/Blood Transfusion Reactions: No Reported Reaction Past Psychological History: Anxiety, Bipolar, Depression, PTSD Smoking Status: Never smoker Past Alcohol Use History: None Reported Past Drug Use History: None Reported - Past Family History Mother Family Medical History: Cancer Father Family Medical History: No Reported History <Toro Suazo - Last Filed: 07/17/21 02:26> General Exam Limitations: no limitations General appearance: alert, in no apparent distress Head exam: Present: atraumatic, normocephalic, normal inspection Eye exam: Present: normal appearance, PERRL, EOMI. Absent: scleral icterus, conjunctival injection, periorbital swelling ENT exam: Present: normal exam, mucous membranes moist. Absent: normal oropharynx (White exudates on tonsils and posterior pharynx consistent with strep throat.) Neck exam: Present: normal inspection Respiratory exam: Present: normal lung sounds bilaterally. Absent: respiratory distress, wheezes, rales, rhonchi, stridor Cardiovascular Exam: Present: regular rate, normal rhythm, normal heart sounds. Absent: systolic murmur, diastolic murmur, rubs, gallop, clicks Extremities exam: Present: normal inspection, full ROM, normal capillary refill. Absent: tenderness, pedal edema, joint swelling, calf tenderness Neurological exam: Present: alert, oriented X3 Psychiatric exam: Present: normal affect, normal mood Skin exam: Present: warm, dry, intact, normal color. Absent: rash <Toro Suazo - Last Filed: 07/17/21 02:26> Course Vital Signs 07/17/21 01:23 Temperature 97.8 F Pulse Rate 100 Respiratory 22 Rate Blood Pressure 119/88 O2 Sat by Pulse 100 Oximetry Medical Decision Making <Toro Suazo - Last Filed: 07/17/21 02:26> <Ana Moran - Last Filed: 07/18/21 23:43> - Medical Decision Making 26-year-old female with strep throat and Crohn's disease having increased pain or discomfort. Upon physical exam patient's throat was erythematous with white exudate, failure of outpatient antibiotics. Antibiotics sent to pharmacy. 1 mg of Dilaudid, 4 mg of Zofran ordered per Case discussed with Dr. Moran, patient can discharge home. (Toro Suazo) I was available for consultation in the emergency department. The history and physical exam were done by the midlevel provider. I was consulted for this patients care. I reviewed the case with the midlevel provider and based on their presentation of the patient, I agree with the assessment, medical decision making and plan of care as documented. Chart was dictated using [employer] dictation software. Attempts were made to correct any dictation errors however some typographical errors may persist. (Ana Moran) Disposition Is patient prescribed a controlled substance at d/c from ED?: No Time of Disposition: 02:34 <Toro Suazo - Last Filed: 07/17/21 02:26> <Ana Moran - Last Filed: 07/18/21 23:43> Clinical Impression: Strep throat Disposition: HOME SELF-CARE Condition: Stable Instructions (If sedation given, give patient instructions): Strep Throat (ED) Additional Instructions: Please return to the Emergency Department if symptoms worsen or any other concerns. Follow-up with primary care 1-2 days. Follow-up with GI specialist for Crohn's maintenance. Taken Biaxin as prescribed. Prescriptions: Azithromycin [Zithromax Z-pack (6 tabs)] 0 mg PO DIRECTED #6 tab Referrals: Charlotte Slade MD [Primary Care Provider] - 1-2 days
== END 2021-07-17 02:36 | disposition home or self-care (01) ==
LOC: EC 23:58
DX: J02.0 Streptococcal pharyngitis (principal); F31.9 Bipolar disorder, unspecified; F41.9 Anxiety disorder, unspecified; Z79.899 Other long term (current) drug therapy
CPT/HCPCS: 99282; 96372; J1170

== ENCOUNTER 2021-07-26 21:45 | Emergency (ER) | payer MEDICARE, OTHER ==
[2021-07-26 23:16] VITALS: TEMP 98.9
--- NOTE | 2021-07-26 23:36 | XR ---
EXAMINATION TYPE: XR chest 1V portable DATE OF EXAM: 07/26/2021 COMPARISON: 04/27/2021 HISTORY: Chest pain TECHNIQUE: Single view FINDINGS: Heart and mediastinum are normal. Lungs are clear. Diaphragm is normal. Bony thorax is inta ct. IMPRESSION: Normal chest. No change.
[2021-07-27] MEDS ORDERED: MORPHINE SULFATE 4 MG/ML SYRINGE IV STA (01:23)
[2021-07-27] MEDS ORDERED: ONDANSETRON 4 MG/2 ML VIAL IVP STA (01:23)
[2021-07-27] MEDS ORDERED: SODIUM CHLORIDE 0.9% 1,000 ML IV STA (01:23)
[2021-07-27] MEDS ORDERED: methylPREDNISolone SOD SUCCI 125 MG/2 ML VIAL IV STA (01:24)
[2021-07-27 02:12] LABS: Basophils # (A) 0.1 k/uL (0-0.2); Basophils % (A) 0 %; Eosinophils # (A) 0.1 k/uL (0-0.7); Eosinophils % (A) 1 %; HCT 40.8 % (34.0-46.0); HGB 13.9 gm/dL (11.4-16.0); Lymphocytes # (A) 3.5 k/uL (1.0-4.8); Lymphocytes % (A) 29 %; MCH 30.7 pg (25.0-35.0); MCV 90.2 fL (80.0-100.0); Mean Platelet Volume 7.4; Monocytes # (A) 0.6 k/uL (0-1.0); Monocytes % (A) 4 %; Neutrophils # (A) 7.8 k/uL (1.3-7.7); Neutrophils % (A) 63 %; Platelet Count 321 k/uL (150-450); RBC 4.53 m/uL (3.80-5.40); WBC 12.4 k/uL (3.8-10.6)
--- NOTE | 2021-07-27 02:13 | ED ---
General Adult HPI - General Chief complaint: Chest Pain Stated complaint: Chest Pain, Crohn's Flareup Time Seen by Provider: 07/27/21 01:03 Source: patient, RN notes reviewed, old records reviewed Mode of arrival: ambulatory Limitations: no limitations - History of Present Illness Initial comments: Patient is a 26-year-old female with history of Crohn's, presenting to emergency Department with complaints of chest pain that started today. Patient has been here previous for similar complaints. Patient states she is also having abdominal pain and has been having bloody diarrhea. She also had an episode of hematemesis, with some small amount of blood mixed in. Patient is not on blood thinners. Currently she is in no acute distress. She states the chest pain started after she throughout. She states her abdominal pain is about a 6/10. She does follow with GI at [facility]. Patient has had no recent fevers or chills, no cough or congestion. Patient has no further complaints. Her vitals are stable upon arrival. - Related Data Home Medications Medication Instructions Recorded Confirmed Medroxyprogesterone Acetate 150 mg IM Q90D 03/10/18 05/10/21 [Depo-Provera] Lurasidone [Latuda] 80 mg PO HS 03/07/19 05/10/21 Benztropine Mesylate [Cogentin] 2 mg PO BID 12/06/19 05/10/21 Ustekinumab [Stelara] 90 mg IM Q56D 12/06/19 05/10/21 Dicyclomine [Bentyl] 10 mg PO BID PRN 05/17/20 05/10/21 FLUoxetine HCL [PROzac Weekly] 90 mg PO WE 05/17/20 05/10/21 hydrOXYzine pamoate [Vistaril] 100 mg PO TID PRN 05/17/20 05/10/21 oxyCODONE HCL/ACETAMINOPHEN 1 tab PO BID 05/17/20 05/10/21 [Percocet 7.5-325 mg] Amphetamine [Adzenys Xr-Odt] 9.4 mg PO DAILY 03/19/21 05/10/21 Cephalexin [Keflex] 500 mg PO Q12HR 04/27/21 05/10/21 Omeprazole 20 mg PO BID 04/27/21 05/10/21 Previous Rx's Medication Instructions Recorded Prochlorperazine [Compazine] 10 mg PO Q8H #60 tab 04/18/21 Azithromycin [Zithromax Z-pack (6 0 mg PO DIRECTED #6 tab 07/17/21 tabs)] Allergies Allergy/AdvReac Type Severity Reaction Status Date / Time adalimumab [From Humira] Allergy RASH/NAUSEA/VOMITING/JOINT Verified 07/26/21 23:16 PAIN amoxicillin trihydrate Allergy Rash/Hives Verified 07/26/21 23:16 [From Augmentin] potassium clavulanate Allergy Rash/Hives Verified 07/26/21 23:16 [From Augmentin] Review of Systems ROS Statement: Those systems with pertinent positive or pertinent negative responses have been documented in the HPI. ROS Other: All systems not noted in ROS Statement are negative. Past Medical History Past Medical History: No Reported History Additional Past Medical History / Comment(s): crohns, IBD, colitis dx of crohns at age 10., Bloodclots in right arm, PICC line. 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, MRSA Date of last positivie culture/infection: 2002, Jul 2019 cdiff MDRO Source:: Hip Past Surgical History: Bowel Resection, Cholecystectomy Additional Past Surgical History / Comment(s): wisdom teeth, bowel resection x 2 in 2017, sepsis after first surgery, 2 PICC lines removed, Port removed Past Anesthesia/Blood Transfusion Reactions: No Reported Reaction Past Psychological History: Anxiety, Bipolar, Depression, PTSD Smoking Status: Never smoker Past Alcohol Use History: None Reported Past Drug Use History: None Reported - Past Family History Mother Family Medical History: Cancer Father Family Medical History: No Reported History General Exam - General Exam Comments Initial Comments: GENERAL: Patient is well-developed and well-nourished. Patient is nontoxic and in no acute distress. HEAD: Atraumatic, normocephalic. EYES: Pupils equal round and reactive to light, extraocular movements intact, sclera anicteric, conjunctiva are normal. Eyelids were unremarkable. ENT: Nares patent, oropharynx clear without exudates. Moist mucous membranes. NECK: Normal range of motion, supple without lymphadenopathy or JVD. LUNGS: Unlabored respirations. Breath sounds clear to auscultation bilaterally and equal. No wheezes rales or rhonchi. HEART: Regular rate and rhythm without murmurs, rubs or gallops. ABDOMEN: Soft, mid abdominal discomfort, no other areas of pain, normoactive bowel sounds. No guarding, no rebound. No masses appreciated. MUSCULOSKELETAL: Normal extremities with adequate strength and normal range of motion, no pitting or edema. No clubbing or cyanosis. NEUROLOGICAL: Patient is alert and oriented x 3. Symmetrical smile. Normal speech, normal gait. PSYCH: Normal mood, normal affect. SKIN: Warm, Dry, normal turgor, no rashes or lesions noted. Limitations: no limitations Course Vital Signs 07/26/21 07/27/21 23:12 01:00 Temperature 98.9 F Pulse Rate 100 99 Respiratory 22 18 Rate Blood Pressure 119/79 117/68 O2 Sat by Pulse 99 95 Oximetry EKG Findings - EKG Comments: EKG Findings:: Normal sinus rhythm, right atrial enlargement, pulmonary disease pattern, no signs of acute ST segment elevation. This is similar to her previous on 04/27/2021. Ventricular rate 100, DC interval 124, QT 350. Medical Decision Making - Medical Decision Making Patient is a 26-year-old female with history of Crohn's, well-known to this ER, presenting with chest discomfort after she had an episode of vomiting as well as abdominal pain. Her vitals are stable upon arrival, EKG revealed no acute process, looks comparable to previous on 04/27/2021. Labs show a very slight white count at 12.4, this is most likely reactive from her pain. Rest of labs are unremarkable including a normal troponin. Urine is normal. Chest x-ray showed no acute process. Patient was given fluids, Zofran, dose of steroids as well as pain control. She has been resting comfortably. Patient has had no chest pain here in the ER. I recommended following up with her primary care, as well as her GI specialist is. She is agreeable to this. Return parameters were discussed with her and she verbalized understanding. Case discussed with Dr. Leon. - Lab Data Result diagrams: 07/27/21 01:49 07/27/21 01:49 Lab Results 07/27/21 07/27/21 07/27/21 Range/Units 01:49 01:49 01:49 WBC 12.4 H (3.8-10.6) k/uL RBC 4.53 (3.80-5.40) m/uL Hgb 13.9 (11.4-16.0) gm/dL Hct 40.8 (34.0-46.0) % MCV 90.2 (80.0-100.0) fL MCH 30.7 (25.0-35.0) pg MCHC 34.0 (31.0-37.0) g/dL RDW 14.0 (11.5-15.5) % Plt Count 321 (150-450) k/uL MPV 7.4 Neutrophils % 63 % Lymphocytes % 29 % Monocytes % 4 % Eosinophils % 1 % Basophils % 0 % Neutrophils # 7.8 H (1.3-7.7) k/uL Lymphocytes # 3.5 (1.0-4.8) k/uL Monocytes # 0.6 (0-1.0) k/uL Eosinophils # 0.1 (0-0.7) k/uL Basophils # 0.1 (0-0.2) k/uL PT 10.8 (9.0-12.0) sec INR 1.0 (<1.2) APTT 22.2 (22.0-30.0) sec Sodium 135 L (137-145) mmol/L Potassium 5.9 H (3.5-5.1) mmol/L Chloride 103 (98-107) mmol/L Carbon Dioxide 22 (22-30) mmol/L Anion Gap 10 mmol/L BUN 11 (7-17) mg/dL Creatinine 0.53 (0.52-1.04) mg/dL Est GFR (CKD-EPI)AfAm >90 (>60 ml/min/1.73 sqM) Est GFR (CKD-EPI)NonAf >90 (>60 ml/min/1.73 sqM) Glucose 88 (74-99) mg/dL Calcium 8.8 (8.4-10.2) mg/dL Magnesium 1.9 (1.6-2.3) mg/dL Total Bilirubin 1.3 (0.2-1.3) mg/dL AST 46 H (14-36) U/L ALT 15 (4-34) U/L Alkaline Phosphatase 61 (38-126) U/L Troponin I (0.000-0.034) ng/mL Total Protein 8.7 H (6.3-8.2) g/dL Albumin 4.8 (3.5-5.0) g/dL Lipase 97 (23-300) U/L Urine Color Urine Appearance (Clear) Urine pH (5.0-8.0) Ur Specific [place] (1.001-1.035) Urine Protein (Negative) Urine Glucose (UA) (Negative) Urine Ketones (Negative) Urine Blood (Negative) Urine Nitrite (Negative) Urine Bilirubin (Negative) Urine Urobilinogen (<2.0) mg/dL Ur Leukocyte Esterase (Negative) Urine RBC (0-5) /hpf Urine WBC (0-5) /hpf Ur Squamous Epith Cells (0-4) /hpf Hyaline Casts (0-2) /lpf Urine Mucus (None) /hpf 07/27/21 07/27/21 Range/Units 01:49 01:49 WBC (3.8-10.6) k/uL RBC (3.80-5.40) m/uL Hgb (11.4-16.0) gm/dL Hct (34.0-46.0) % MCV (80.0-100.0) fL MCH (25.0-35.0) pg MCHC (31.0-37.0) g/dL RDW (11.5-15.5) % Plt Count (150-450) k/uL MPV Neutrophils % % Lymphocytes % % Monocytes % % Eosinophils % % Basophils % % Neutrophils # (1.3-7.7) k/uL Lymphocytes # (1.0-4.8) k/uL Monocytes # (0-1.0) k/uL Eosinophils # (0-0.7) k/uL Basophils # (0-0.2) k/uL PT (9.0-12.0) sec INR (<1.2) APTT (22.0-30.0) sec Sodium (137-145) mmol/L Potassium (3.5-5.1) mmol/L Chloride (98-107) mmol/L Carbon Dioxide (22-30) mmol/L Anion Gap mmol/L BUN (7-17) mg/dL Creatinine (0.52-1.04) mg/dL Est GFR (CKD-EPI)AfAm (>60 ml/min/1.73 sqM) Est GFR (CKD-EPI)NonAf (>60 ml/min/1.73 sqM) Glucose (74-99) mg/dL Calcium (8.4-10.2) mg/dL Magnesium (1.6-2.3) mg/dL Total Bilirubin (0.2-1.3) mg/dL AST (14-36) U/L ALT (4-34) U/L Alkaline Phosphatase (38-126) U/L Troponin I 0.025 (0.000-0.034) ng/mL Total Protein (6.3-8.2) g/dL Albumin (3.5-5.0) g/dL Lipase (23-300) U/L Urine Color Yellow Urine Appearance Cloudy H (Clear) Urine pH 5.5 (5.0-8.0) Ur Specific [place] 1.030 (1.001-1.035) Urine Protein Trace H (Negative) Urine Glucose (UA) Negative (Negative) Urine Ketones Negative (Negative) Urine Blood Trace H (Negative) Urine Nitrite Negative (Negative) Urine Bilirubin Negative (Negative) Urine Urobilinogen <2.0 (<2.0) mg/dL Ur Leukocyte Esterase Negative (Negative) Urine RBC 1 (0-5) /hpf Urine WBC 5 (0-5) /hpf Ur Squamous Epith Cells 2 (0-4) /hpf Hyaline Casts 3 H (0-2) /lpf Urine Mucus Moderate H (None) /hpf Disposition Clinical Impression: Nausea and vomiting, Abdominal pain, Crohn disease, Atypical chest pain Disposition: HOME SELF-CARE Condition: Stable Instructions (If sedation given, give patient instructions): Abdominal Pain (ED) Additional Instructions: Please return to the Emergency Department if symptoms worsen or any other co ncerns. Please follow up with your regular doctors. Is patient prescribed a controlled substance at d/c from ED?: No Referrals: Charlotte Slade MD [Primary Care Provider] - 1-2 days Time of Disposition: 03:30
[2021-07-27 02:19] LABS: Appearance,Urine Cloudy (Clear); Bilirubin,Urine Negative (Negative); Blood,Urine Trace (Negative); Color,Urine Yellow; Glucose,Urine (UA) Negative (Negative); Hyaline Casts,Urine 3 /lpf (0-2); Ketones,Urine Negative (Negative); Leukocyte Esterase,Urine Negative (Negative); Mucus,Urine Moderate /hpf; Nitrite,Urine Negative (Negative); PH, Urine 5.5 (5.0-8.0); Protein,Urine Trace (Negative); RBC,Urine 1 /hpf (0-5); Squamous Epithelial Cell,Urine 2 /hpf (0-4); Urobilinogen,Urine <2.0 mg/dL (<2.0); WBC,Urine 5 /hpf (0-5)
[2021-07-27 02:26] LABS: ALT 15 U/L (4-34); AST 46 U/L (14-36); African American GFR (CKD) >90 (>60 ml/min/1.73 sqM); Albumin 4.8 g/dL (3.5-5.0); Alkaline Phosphatase 61 U/L (38-126); Anion Gap 10 mmol/L; Blood Urea Nitrogen 11 mg/dL (7-17); Calcium 8.8 mg/dL (8.4-10.2); Carbon Dioxide 22 mmol/L (22-30); Chloride 103 mmol/L (98-107); Glucose 88 mg/dL (74-99); Lipase 97 U/L (23-300); Magnesium 1.9 mg/dL (1.6-2.3); Non-African American GFR(CKD) >90 (>60 ml/min/1.73 sqM); Sodium 135 mmol/L (137-145); Total Bilirubin 1.3 mg/dL (0.2-1.3); Total Protein 8.7 g/dL (6.3-8.2)
[2021-07-27 02:29] LABS: Potassium 5.9 mmol/L (3.5-5.1)
[2021-07-27 02:38] LABS: Partial Thromboplastin Time 22.2 sec (22.0-30.0); Prothrombin Time 10.8 sec (9.0-12.0)
[2021-07-27] MEDS ORDERED: HYDROmorphone 0.5 MG/0.5 ML SYRINGE IVP STA (03:22)
[2021-07-27 03:43] VITALS: BP 100/64; PULSE 77; RESP 16
== END 2021-07-27 03:43 | disposition home or self-care (01) ==
LOC: EC 21:45
DX: R07.89 Other chest pain (principal); R10.9 Unspecified abdominal pain; K50.90 Crohn's disease, unspecified, without complications; R11.2 Nausea with vomiting, unspecified; F41.9 Anxiety disorder, unspecified; F31.9 Bipolar disorder, unspecified; F43.10 Post-traumatic stress disorder, unspecified
CPT/HCPCS: 36415; 93005; 80053; 83690; 83735; 84484; 85025; 85610; 85730; 81001; 71045; 99285; 96374; 96375 ×3; 96361; J2270; J2930; J2405; J1170

== ENCOUNTER 2021-08-05 17:45 | Emergency (ER) | payer MEDICARE, OTHER ==
[2021-08-05 17:52] VITALS: TEMP 97.9
[2021-08-05] MEDS ORDERED: ONDANSETRON 4 MG/2 ML VIAL IVP STA (18:38)
[2021-08-05] MEDS ORDERED: KETOROLAC 15 MG/ML 1 ML VIAL IVP STA (18:38)
[2021-08-05] MEDS ORDERED: SODIUM CHLORIDE 0.9% 1,000 ML IV STA (18:38)
--- NOTE | 2021-08-05 18:38 | ED ---
General Adult HPI - General Chief complaint: Abdominal Pain Stated complaint: Chrons Disease, GI bleed Time Seen by Provider: 08/05/21 18:13 Source: patient, family, RN notes reviewed Mode of arrival: ambulatory Limitations: no limitations - History of Present Illness Initial comments: 26-year-old female presents to the emergency Department with complaints of left- sided abdominal pain. Patient states she has a history of colitis and has recently been on several antibiotics to treat an ear infection and strep throat. States she was seen last week after an episode of hematemesis and has been unable to follow up with her GI doctor since. States this evening she had one episode of bright red bloody diarrhea with no formed stool. Patient states she is certain that she has C. diff. Reports persistent nausea, ongoing pain, and overall weakness. Denies fever at this time, chest pain, difficulty breathing, dysuria, or hematuria. - Related Data Home Medications Medication Instructions Recorded Confirmed Medroxyprogesterone Acetate 150 mg IM Q84D 03/10/18 08/05/21 [Depo-Provera] Lurasidone [Latuda] 80 mg PO HS 03/07/19 08/05/21 Benztropine Mesylate [Cogentin] 2 mg PO BID PRN 12/06/19 08/05/21 Ustekinumab [Stelara] 90 mg IM Q56D 12/06/19 08/05/21 Dicyclomine [Bentyl] 10 mg PO QID PRN 05/17/20 08/05/21 FLUoxetine HCL [PROzac Weekly] 90 mg PO WE 05/17/20 08/05/21 hydrOXYzine pamoate [Vistaril] 50 mg PO QID PRN 05/17/20 08/05/21 oxyCODONE HCL/ACETAMINOPHEN 1 tab PO BID PRN 05/17/20 08/05/21 [Percocet 7.5-325 mg] Amitriptyline HCl [Elavil] 10 mg PO BID 08/05/21 08/05/21 Dextroamphetamine/Amphetamine 20 mg PO DAILY 08/05/21 08/05/21 [Adderall Xr] Fluticasone Nasal [place] [Flonase 2 spr EA NOSTRIL DAILY 08/05/21 08/05/21 Nasal [place]] Gabapentin [Neurontin] 500 mg PO HS 08/05/21 08/05/21 Loratadine [Claritin] 10 mg PO DAILY 08/05/21 08/05/21 Prochlorperazine [Compazine] 10 mg PO BID PRN 08/05/21 08/05/21 Allergies Allergy/AdvReac Type Severity Reaction Status Date / Time adalimumab [From Humira] Allergy RASH/NAUSEA/VOMITING/JOINT Verified 08/05/21 22:19 PAIN amoxicillin trihydrate Allergy Rash/Hives Verified 08/05/21 22:19 [From Augmentin] potassium clavulanate Allergy Rash/Hives Verified 08/05/21 22:19 [From Augmentin] Review of Systems ROS Statement: Those systems with pertinent positive or pertinent negative responses have been documented in the HPI. ROS Other: All systems not noted in ROS Statement are negative. Past Medical History Past Medical History: No Reported History Additional Past Medical History / Comment(s): crohns, IBD, colitis dx of crohns at age 10., Bloodclots in right arm, PICC line. 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, MRSA Date of last positivie culture/infection: 2002, Jul 2019 cdiff MDRO Source:: Hip Past Surgical History: Bowel Resection, Cholecystectomy Additional Past Surgical History / Comment(s): wisdom teeth, bowel resection x 2 in 2017, sepsis after first surgery, 2 PICC lines removed, Port removed Past Anesthesia/Blood Transfusion Reactions: No Reported Reaction Past Psychological History: Anxiety, Bipolar, Depression, PTSD Smoking Status: Never smoker Past Alcohol Use History: None Reported Past Drug Use History: None Reported - Past Family History Mother Family Medical History: Cancer Father Family Medical History: No Reported History General Exam Limitations: no limitations General appearance: alert, other (This is a well-developed, well-nourished female who appears anxious but is in no acute distress. Initial temperature 97.9, pulse 92, respirations 18, blood pressure 117/82, pulse ox 99% on room air.) Eye exam: Present: normal appearance, PERRL, EOMI. Absent: scleral icterus, conjunctival injection, periorbital swelling ENT exam: Present: normal exam, normal oropharynx, mucous membranes moist, TM's normal bilaterally Respiratory exam: Present: normal lung sounds bilaterally. Absent: respiratory distress, wheezes, rales, rhonchi, stridor Cardiovascular Exam: Present: regular rate, normal rhythm, normal heart sounds. Absent: systolic murmur, diastolic murmur, rubs, gallop, clicks GI/Abdominal exam: Present: soft, tenderness (Left periumbilical pain that worsens with palpation.), normal bowel sounds. Absent: distended, guarding, rebound, rigid Rectal exam: Present: normal inspection, normal rectal tone, other (Unable to obtain stool for Hemoccult). Absent: hemorrhoids Back exam: Absent: CVA tenderness (R), CVA tenderness (L) Neurological exam: Present: alert, oriented X3, CN II-XII intact Psychiatric exam: Present: normal affect, normal mood Skin exam: Present: warm, dry, intact, pallor Course Vital Signs 08/05/21 08/05/21 08/05/21 17:47 21:52 23:37 Temperature 97.9 F Pulse Rate 92 68 82 Respiratory 18 18 17 Rate Blood Pressure 117/82 107/70 100/74 O2 Sat by Pulse 99 100 99 Oximetry 08/06/21 00:23 Temperature Pulse Rate 62 Respiratory 18 Rate Blood Pressure 117/63 O2 Sat by Pulse 99 Oximetry - Reevaluation(s) Reevaluation #1: 08/06/21 00:00 Prior to departure, patient's color has significantly improved. She is able to tolerate oral intake. Still has some pain, but nausea has resolved. No episodes of bloody diarrhea. The patient was not able to provide a stool sample while present in the emergency department this evening. Did clarify that she has provided a stool sample in which her PCP has ordered cultures and C. diff, though results are pending, but anticipated on Friday. 08/06/21 01:30 Medical Decision Making - Medical Decision Making 26-year-old female with a history of Crohn's disease presents to the emergency Department with complaints of left lower quadrant abdominal pain and one episode of bloody diarrhea prior to arrival. Upon exam, patient appears slightly pale and moderately uncomfortable. Abdomen is tender upon palpation of the left lower quadrant. Patient is hemodynamically stable with no active bleeding. Laboratory studies are unremarkable with no abnormal findings. Patient was given IV fluids, pain medicine, antinausea medicine with improvement. CT of the abdomen and pelvis shows no acute findings. Patient was unable to provide a stool sample wh ile present in the emergency department, however does state her PCP ordered one and the results are pending, anticipated on Friday. Patient states she does have an appointment scheduled with her GI doctor. She is tolerating oral intake at this time. Patient will be discharged home to follow-up as scheduled. Return parameters were discussed in detail. Patient verbalizes understanding and agrees with this plan. This patient's care was discussed with my attending Dr. Leon. - Lab Data Result diagrams: 08/05/21 19:49 08/05/21 20:40 Lab Results 08/05/21 08/05/21 08/05/21 Range/Units 19:49 19:49 19:49 WBC 8.7 (3.8-10.6) k/uL RBC 4.62 (3.80-5.40) m/uL Hgb 14.2 (11.4-16.0) gm/dL Hct 43.1 (34.0-46.0) % MCV 93.3 (80.0-100.0) fL MCH 30.7 (25.0-35.0) pg MCHC 32.9 (31.0-37.0) g/dL RDW 14.4 (11.5-15.5) % Plt Count 312 (150-450) k/uL MPV 7.8 Neutrophils % 63 % Lymphocytes % 30 % Monocytes % 4 % Eosinophils % 0 % Basophils % 0 % Neutrophils # 5.5 (1.3-7.7) k/uL Lymphocytes # 2.6 (1.0-4.8) k/uL Monocytes # 0.4 (0-1.0) k/uL Eosinophils # 0.0 (0-0.7) k/uL Basophils # 0.0 (0-0.2) k/uL PT 10.6 (9.0-12.0) sec INR 1.0 (<1.2) APTT 22.8 (22.0-30.0) sec Sodium (137-145) mmol/L Potassium (3.5-5.1) mmol/L Chloride (98-107) mmol/L Carbon Dioxide (22-30) mmol/L Anion Gap mmol/L BUN (7-17) mg/dL Creatinine (0.52-1.04) mg/dL Est GFR (CKD-EPI)AfAm (>60 ml/min/1.73 sqM) Est GFR (CKD-EPI)NonAf (>60 ml/min/1.73 sqM) Glucose (74-99) mg/dL Calcium (8.4-10.2) mg/dL Total Bilirubin (0.2-1.3) mg/dL AST (14-36) U/L ALT (4-34) U/L Alkaline Phosphatase (38-126) U/L Total Protein (6.3-8.2) g/dL Albumin (3.5-5.0) g/dL Urine Color Yellow Urine Appearance Clear (Clear) Urine pH 7.5 (5.0-8.0) Ur Specific [place] 1.013 (1.001-1.035) Urine Protein Negative (Negative) Urine Glucose (UA) Negative (Negative) Urine Ketones Negative (Negative) Urine Blood Negative (Negative) Urine Nitrite Negative (Negative) Urine Bilirubin Negative (Negative) Urine Urobilinogen <2.0 (<2.0) mg/dL Ur Leukocyte Esterase Small H (Negative) Urine RBC <1 (0-5) /hpf Urine WBC 1 (0-5) /hpf Ur Squamous Epith Cells 1 (0-4) /hpf Hyaline Casts 1 (0-2) /lpf Blood Type Blood Type Recheck Bld Type Recheck Status Antibody Screen Spec Expiration Date 08/05/21 08/05/21 Range/Units 19:49 20:40 WBC (3.8-10.6) k/uL RBC (3.80-5.40) m/uL Hgb (11.4-16.0) gm/dL Hct (34.0-46.0) % MCV (80.0-100.0) fL MCH (25.0-35.0) pg MCHC (31.0-37.0) g/dL RDW (11.5-15.5) % Plt Count (150-450) k/uL MPV Neutrophils % % Lymphocytes % % Monocytes % % Eosinophils % % Basophils % % Neutrophils # (1.3-7.7) k/uL Lymphocytes # (1.0-4.8) k/uL Monocytes # (0-1.0) k/uL Eosinophils # (0-0.7) k/uL Basophils # (0-0.2) k/uL PT (9.0-12.0) sec INR (<1.2) APTT (22.0-30.0) sec Sodium 138 (137-145) mmol/L Potassium 4.3 (3.5-5.1) mmol/L Chloride 102 (98-107) mmol/L Carbon Dioxide 22 (22-30) mmol/L Anion Gap 14 mmol/L BUN 7 (7-17) mg/dL Creatinine 0.56 (0.52-1.04) mg/dL Est GFR (CKD-EPI)AfAm >90 (>60 ml/min/1.73 sqM) Est GFR (CKD-EPI)NonAf >90 (>60 ml/min/1.73 sqM) Glucose 88 (74-99) mg/dL Calcium 9.3 (8.4-10.2) mg/dL Total Bilirubin 0.5 (0.2-1.3) mg/dL AST 25 (14-36) U/L ALT 14 (4-34) U/L Alkaline Phosphatase 69 (38-126) U/L Total Protein 8.2 (6.3-8.2) g/dL Albumin 4.6 (3.5-5.0) g/dL Urine Color Urine Appearance (Clear) Urine pH (5.0-8.0) Ur Specific [place] (1.001-1.035) Urine Protein (Negative) Urine Glucose (UA) (Negative) Urine Ketones (Negative) Urine Blood (Negative) Urine Nitrite (Negative) Urine Bilirubin (Negative) Urine Urobilinogen (<2.0) mg/dL Ur Leukocyte Esterase (Negative) Urine RBC (0-5) /hpf Urine WBC (0-5) /hpf Ur Squamous Epith Cells (0-4) /hpf Hyaline Casts (0-2) /lpf Blood Type O Positive Blood Type Recheck O Pos Bld Type Recheck Status No Antibody Screen NEGATIVE Spec Expiration Date 08/08/20212348 - Radiology Data Radiology results: report reviewed, image reviewed CT of the abdomen and pelvis was obtained with contrast. Report was reviewed in its entirety. Impression per Dr. Stanton's previous right colon surgery. No evidence for bowel obstruction. No acute abnormality of the abdomen and pelvis. There is clearing of the fluid-filled dilated large bowel compared to exam. Disposition Clinical Impression: Abdominal pain, Crohn disease, Diarrhea Disposition: HOME SELF-CARE Condition: Stable Instructions (If sedation given, give patient instructions): Crohn Disease (ED), Acute Diarrhea (ED) Additional Instructions: Continue your regular home medications as prescribed. Follow-up with your PCP for recheck this week. You really need to see your GI doctor. Return to the emergency department with any new, worsening, or concerning symptoms. Is patient prescribed a controlled substance at d/c from ED?: No Referrals: Charlotte Slade MD [Primary Care Provider] - 1-2 days Time of Disposition: 23:52
[2021-08-05] MEDS ORDERED: MORPHINE SULFATE 2 MG/ML SYRINGE IVP ONE (19:51)
[2021-08-05 20:23] LABS: Partial Thromboplastin Time 22.8 sec (22.0-30.0); Prothrombin Time 10.6 sec (9.0-12.0)
[2021-08-05 20:27] LABS: Appearance,Urine Clear (Clear); Bilirubin,Urine Negative (Negative); Blood,Urine Negative (Negative); Color,Urine Yellow; Glucose,Urine (UA) Negative (Negative); Hyaline Casts,Urine 1 /lpf (0-2); Ketones,Urine Negative (Negative); Leukocyte Esterase,Urine Small (Negative); Nitrite,Urine Negative (Negative); PH, Urine 7.5 (5.0-8.0); Protein,Urine Negative (Negative); RBC,Urine <1 /hpf (0-5); Specific Gravity,Urine 1.013 (1.001-1.035); Squamous Epithelial Cell,Urine 1 /hpf (0-4); Urobilinogen,Urine <2.0 mg/dL (<2.0); WBC,Urine 1 /hpf (0-5)
[2021-08-05 20:28] LABS: Basophils % (A) 0 %; Eosinophils % (A) 0 %; HCT 43.1 % (34.0-46.0); HGB 14.2 gm/dL (11.4-16.0); Lymphocytes # (A) 2.6 k/uL (1.0-4.8); Lymphocytes % (A) 30 %; MCH 30.7 pg (25.0-35.0); MCHC 32.9 g/dL (31.0-37.0); MCV 93.3 fL (80.0-100.0); Mean Platelet Volume 7.8; Monocytes # (A) 0.4 k/uL (0-1.0); Monocytes % (A) 4 %; Neutrophils # (A) 5.5 k/uL (1.3-7.7); Neutrophils % (A) 63 %; Platelet Count 312 k/uL (150-450); RBC 4.62 m/uL (3.80-5.40); RDW 14.4 % (11.5-15.5); WBC 8.7 k/uL (3.8-10.6)
[2021-08-05] MEDS ORDERED: HYDROmorphone 1 MG/ML 1 ML SYRINGE IVP STA (20:43)
[2021-08-05 21:10] LABS: ALT 14 U/L (4-34); AST 25 U/L (14-36); African American GFR (CKD) >90 (>60 ml/min/1.73 sqM); Albumin 4.6 g/dL (3.5-5.0); Alkaline Phosphatase 69 U/L (38-126); Anion Gap 14 mmol/L; Blood Urea Nitrogen 7 mg/dL (7-17); Calcium 9.3 mg/dL (8.4-10.2); Carbon Dioxide 22 mmol/L (22-30); Chloride 102 mmol/L (98-107); Glucose 88 mg/dL (74-99); Non-African American GFR(CKD) >90 (>60 ml/min/1.73 sqM); Potassium 4.3 mmol/L (3.5-5.1); Sodium 138 mmol/L (137-145); Total Bilirubin 0.5 mg/dL (0.2-1.3); Total Protein 8.2 g/dL (6.3-8.2)
[2021-08-05] MEDS ORDERED: HYDROmorphone 0.5 MG/0.5 ML SYRINGE IVP STA ×2 (22:33→23:58)
--- NOTE | 2021-08-05 22:52 | CT ---
EXAMINATION TYPE: CT abdomen pelvis w con DATE OF EXAM: 08/05/2021 COMPARISON: 05/17/2020HISTORY: Left lower quadrant pain around colon resection site. Bloody diarrhea. History of Crohn's and colitis. CT DLP: 542.8 mGycm Automated exposure control for dose reduction was used. CONTRAST: Performed with IV Contrast, patient injected with 100 mL of Isovue 300. Images obtained from the diaphragm to the floor the pelvis with IV contrast. lung bases are clear. There is no pleural effusion. Heart size is normal. There is no pericardial ef fusion. Liver spleen stomach pancreas appear intact. The bile ducts are not dilated. There is no adrenal mass. Kidneys show satisfactory contrast opacification. There is no hydronephrosi s. There is no retroperitoneal adenopathy. Bladder distends smoothly. There is no inguinal hernia. Th ere is no free fluid in the pelvis. There is no evidence of a pelvic mass. There are surgical clips in the right mid abdomen. There is no evidence of a bowel obstruction. There is no mesenteric edema. There is no ascites or free air. The lumbar vertebra have normal alignment. Posterior elements are intact. Disc spaces are fairly norm al. Bony pelvis is intact. Hip joints are intact. IMPRESSION: Previous right colon surgery. No evidence of a bowel obstruction. No acute abnormality of the abdomen pelvis. There is clearing of the fluid-filled dilated large bowel compared to old exam.
[2021-08-06 00:25] VITALS: BP 117/63; PULSE 62; RESP 18
== END 2021-08-06 00:25 | disposition home or self-care (01) ==
LOC: EC 17:45
DX: K50.90 Crohn's disease, unspecified, without complications (principal); F31.9 Bipolar disorder, unspecified; F41.9 Anxiety disorder, unspecified; Z79.899 Other long term (current) drug therapy
CPT/HCPCS: 36415; 86900; 86901; 80053; 85025; 85610; 85730; 86850; 81001; 74177; 96374; 96375 ×2; 96376 ×2; 96361 ×2; 99284; J2405; J2270; J1170 ×3; Q9967

== ENCOUNTER 2021-09-12 19:52 | Emergency (ER) | payer MEDICARE, OTHER ==
[2021-09-12] MEDS ORDERED: HYDROmorphone 0.5 MG/0.5 ML SYRINGE IVP STA ×2 (20:27→21:53)
[2021-09-12] MEDS ORDERED: SODIUM CHLORIDE 0.9% 1,000 ML IV STA (20:27)
--- NOTE | 2021-09-12 20:34 | ED ---
General Adult HPI - General Chief complaint: Abdominal Pain Stated complaint: Possible Bowel Obstruction Time Seen by Provider: 09/12/21 20:20 Source: patient, RN notes reviewed, old records reviewed Mode of arrival: ambulatory Limitations: no limitations - History of Present Illness Initial comments: 26 year female alert and oriented 4, presents to the emergency room with complaints of abdominal pain. She states she has not had bowel movement since Friday. She states that she felt a pop in her mid abdomen on Friday does have a history of Crohn's and normally has 5-6 bowel movements a day. She does have a history of bowel resection 2 last one in 2017 at [facility]. She is scheduled to have a Mediport placed in a [place] for hydration therapy. She states that she has no vomiting but does have a low-grade fever. She is on Depo-Provera and not sexually active for several months. -: days(s) (4) Location: abdomen Radiation: non-radiation Severity scale (1-10): 8 Quality: constant Consistency: constant Improves with: none Associated Symptoms: fever/chills, loss of appetite Treatments Prior to Arrival: none - Related Data Home Medications Medication Instructions Recorded Confirmed Medroxyprogesterone Acetate 150 mg IM Q84D 03/10/18 09/12/21 [Depo-Provera] Lurasidone [Latuda] 80 mg PO HS 03/07/19 09/12/21 Benztropine Mesylate [Cogentin] 2 mg PO BID PRN 12/06/19 09/12/21 Ustekinumab [Stelara] 90 mg IM Q56D 12/06/19 09/12/21 Dicyclomine [Bentyl] 10 mg PO QID PRN 05/17/20 09/12/21 FLUoxetine HCL [PROzac Weekly] 90 mg PO WE 05/17/20 09/12/21 hydrOXYzine pamoate [Vistaril] 50 mg PO QID PRN 05/17/20 09/12/21 oxyCODONE HCL/ACETAMINOPHEN 1 tab PO BID PRN 05/17/20 09/12/21 [Percocet 7.5-325 mg] Amitriptyline HCl [Elavil] 10 mg PO BID 08/05/21 09/12/21 Fluticasone Nasal [place] [Flonase 2 spr EA NOSTRIL DAILY PRN 08/05/21 09/12/21 Nasal [place]] Loratadine [Claritin] 10 mg PO DAILY PRN 08/05/21 09/12/21 Prochlorperazine [Compazine] 20 mg PO Q6H PRN 08/05/21 09/12/21 Dextroamphetamine/Amphetamine 25 mg PO DAILY 09/12/21 09/12/21 [Adderall Xr] Tamsulosin HCl [Flomax] 0.4 mg PO HS 09/12/21 09/12/21 Allergies Allergy/AdvReac Type Severity Reaction Status Date / Time adalimumab [From Humira] Allergy RASH/NAUSEA/VOMITING/JOINT Verified 09/12/21 22:51 PAIN amoxicillin trihydrate Allergy Rash/Hives Verified 09/12/21 22:51 [From Augmentin] potassium clavulanate Allergy Rash/Hives Verified 09/12/21 22:51 [From Augmentin] Review of Systems ROS Statement: Those systems with pertinent positive or pertinent negative responses have been documented in the HPI. ROS Other: All systems not noted in ROS Statement are negative. Past Medical History Past Medical History: No Reported History Additional Past Medical History / Comment(s): crohns, IBD, colitis dx of crohns at age 10., Bloodclots in right arm, PICC line. 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, MRSA Date of last positivie culture/infection: 2002, Jul 2019 cdiff MDRO Source:: Hip Past Surgical History: Bowel Resection, Cholecystectomy Additional Past Surgical History / Comment(s): wisdom teeth, bowel resection x 2 in 2017, sepsis after first surgery, 2 PICC lines removed, Port removed Past Anesthesia/Blood Transfusion Reactions: No Reported Reaction Past Psychological History: Anxiety, Bipolar, Depression, PTSD Smoking Status: Never smoker Past Alcohol Use History: None Reported Past Drug Use History: None Reported - Past Family History Mother Family Medical History: Cancer Father Family Medical History: No Reported History General Exam Limitations: no limitations General appearance: alert, in no apparent distress Head exam: Present: atraumatic, normocephalic, normal inspection Eye exam: Present: normal appearance, EOMI. Absent: scleral icterus, conjunctival injection ENT exam: Present: normal exam, normal oropharynx, mucous membranes moist Neck exam: Present: normal inspection, full ROM. Absent: tenderness, meningismus, lymphadenopathy, thyromegaly Respiratory exam: Present: normal lung sounds bilaterally. Absent: respiratory distress, wheezes, rales, rhonchi, stridor, chest wall tenderness, accessory muscle use Cardiovascular Exam: Present: tachycardia, normal heart sounds. Absent: JVD GI/Abdominal exam: Present: soft, distended, tenderness. Absent: guarding, rebound, rigid Extremities exam: Present: normal inspection, full ROM, normal capillary refill. Absent: tenderness, pedal edema Back exam: Present: normal inspection, full ROM. Absent: tenderness, CVA tenderness (R), CVA tenderness (L), rash noted Neurological exam: Present: alert, oriented X3, normal gait Psychiatric exam: Present: normal affect, normal mood Skin exam: Present: warm, dry, intact, normal color. Absent: cyanosis, diaphoretic Course Vital Signs 09/12/21 09/12/21 09/12/21 19:59 22:07 23:00 Temperature 99.4 F 98.3 F Pulse Rate 106 H 78 77 Respiratory 20 16 16 Rate Blood Pressure 101/67 95/56 96/52 O2 Sat by Pulse 98 98 Oximetry Medical Decision Making - Medical Decision Making 26 year female presents with complaints of abdominal pain and no bowel movement since Friday. She has a history of Crohn's with 5-6 bowel movements a day normally. She was concerned for obstruction. X-ray shows a nonacute abdomen. Bowel gas pattern is normal there is no signs of intestinal obstruction or pneumoperitoneum. Fecal pattern is normal. There is no evidence of leukocytosis hemoglobin and hematocrit are stable. Electrolytes are unremarkable. Urinalysis is a dirty specimen was sent for culture. Patient has no dysuria. Patient was given a liter normal saline, 2 doses of Dilaudid with Benadryl and Solu-Medrol. Her abdomen is soft with minimal tenderness in the left lower quadrant. She states that she is feeling better and ready to be discharged home. 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 She does have an appointment to have a Mediport placed for IV hydration therapy. She is comfortable being discharged with strict return parameters to return with a fever, vomiting or increased pain. Case was discussed with Dr. Banks. - Lab Data Result diagrams: 09/12/21 20:43 09/12/21 20:43 Lab Results 09/12/21 09/12/21 09/12/21 Range/Units 20:43 20:43 20:43 WBC 6.4 (3.8-10.6) k/uL RBC 4.07 (3.80-5.40) m/uL Hgb 12.9 (11.4-16.0) gm/dL Hct 39.5 (34.0-46.0) % MCV 97.0 (80.0-100.0) fL MCH 31.7 (25.0-35.0) pg MCHC 32.7 (31.0-37.0) g/dL RDW 12.8 (11.5-15.5) % Plt Count 204 (150-450) k/uL MPV 8.3 Neutrophils % 58 % Lymphocytes % 34 % Monocytes % 4 % Eosinophils % 2 % Basophils % 1 % Neutrophils # 3.7 (1.3-7.7) k/uL Lymphocytes # 2.2 (1.0-4.8) k/uL Monocytes # 0.2 (0-1.0) k/uL Eosinophils # 0.2 (0-0.7) k/uL Basophils # 0.0 (0-0.2) k/uL PT (9.0-12.0) sec INR (<1.2) APTT (22.0-30.0) sec Sodium 139 (137-145) mmol/L Potassium 4.3 (3.5-5.1) mmol/L Chloride 106 (98-107) mmol/L Carbon Dioxide 25 (22-30) mmol/L Anion Gap 8 mmol/L BUN 14 (7-17) mg/dL Creatinine 0.68 (0.52-1.04) mg/dL Est GFR (CKD-EPI)AfAm >90 (>60 ml/min/1.73 sqM) Est GFR (CKD-EPI)NonAf >90 (>60 ml/min/1.73 sqM) Glucose 83 (74-99) mg/dL Plasma Lactic Acid Rehan (0.7-2.0) mmol/L Calcium 9.0 (8.4-10.2) mg/dL Total Bilirubin 0.2 (0.2-1.3) mg/dL AST 17 (14-36) U/L ALT 10 (4-34) U/L Alkaline Phosphatase 50 (38-126) U/L Total Protein 6.9 (6.3-8.2) g/dL Albumin 3.7 (3.5-5.0) g/dL Amylase 78 (30-110) U/L Lipase 130 (23-300) U/L Urine Color Yellow Urine Appearance Cloudy H (Clear) Urine pH 5.5 (5.0-8.0) Ur Specific [place] 1.023 (1.001-1.035) Urine Protein Negative (Negative) Urine Glucose (UA) Negative (Negative) Urine Ketones Negative (Negative) Urine Blood Small H (Negative) Urine Nitrite Negative (Negative) Urine Bilirubin Negative (Negative) Urine Urobilinogen <2.0 (<2.0) mg/dL Ur Leukocyte Esterase Large H (Negative) Urine RBC 3 (0-5) /hpf Urine WBC 17 H (0-5) /hpf Ur Squamous Epith Cells 11 H (0-4) /hpf Urine Bacteria Rare H (None) /hpf Hyaline Casts 4 H (0-2) /lpf Urine Mucus Rare H (None) /hpf Urine HCG, Qual (Not Detectd) 09/12/21 09/12/21 09/12/21 Range/Units 20:43 20:43 20:50 WBC (3.8-10.6) k/uL RBC (3.80-5.40) m/uL Hgb (11.4-16.0) gm/dL Hct (34.0-46.0) % MCV (80.0-100.0) fL MCH (25.0-35.0) pg MCHC (31.0-37.0) g/dL RDW (11.5-15.5) % Plt Count (150-450) k/uL MPV Neutrophils % % Lymphocytes % % Monocytes % % Eosinophils % % Basophils % % Neutrophils # (1.3-7.7) k/uL Lymphocytes # (1.0-4.8) k/uL Monocytes # (0-1.0) k/uL Eosinophils # (0-0.7) k/uL Basophils # (0-0.2) k/uL PT 10.0 (9.0-12.0) sec INR 0.9 (<1.2) APTT 22.3 (22.0-30.0) sec Sodium (137-145) mmol/L Potassium (3.5-5.1) mmol/L Chloride (98-107) mmol/L Carbon Dioxide (22-30) mmol/L Anion Gap mmol/L BUN (7-17) mg/dL Creatinine (0.52-1.04) mg/dL Est GFR (CKD-EPI)AfAm (>60 ml/min/1.73 sqM) Est GFR (CKD-EPI)NonAf (>60 ml/min/1.73 sqM) Glucose (74-99) mg/dL Plasma Lactic Acid Rehan 1.2 (0.7-2.0) mmol/L Calcium (8.4-10.2) mg/dL Total Bilirubin (0.2-1.3) mg/dL AST (14-36) U/L ALT (4-34) U/L Alkaline Phosphatase (38-126) U/L Total Protein (6.3-8.2) g/dL Albumin (3.5-5.0) g/dL Amylase (30-110) U/L Lipase (23-300) U/L Urine Color Urine Appearance (Clear) Urine pH (5.0-8.0) Ur Specific [place] (1.001-1.035) Urine Protein (Negative) Urine Glucose (UA) (Negative) Urine Ketones (Negative) Urine Blood (Negative) Urine Nitrite (Negative) Urine Bilirubin (Negative) Urine Urobilinogen (<2.0) mg/dL Ur Leukocyte Esterase (Negative) Urine RBC (0-5) /hpf Urine WBC (0-5) /hpf Ur Squamous Epith Cells (0-4) /hpf Urine Bacteria (None) /hpf Hyaline Casts (0-2) /lpf Urine Mucus (None) /hpf Urine HCG, Qual Not Detected (Not Detectd) Disposition Clinical Impression: Abdominal pain Disposition: HOME SELF-CARE Condition: Good Instructions (If sedation given, give patient instructions): Abdominal Pain (ED) Additional Instructions: Follow-up with your primary care doctor and culinary instructor this week. Return to the emergency room with any new or concerning symptoms including fever, increased pain or vomiting. Is patient prescribed a controlled substance at d/c from ED?: No Referrals: Charlotte Slade MD [Primary Care Provider] - 1-2 days Time of Disposition: 22:51
[2021-09-12 20:49] LABS: Basophils % (A) 1 %; Eosinophils # (A) 0.2 k/uL (0-0.7); Eosinophils % (A) 2 %; HCT 39.5 % (34.0-46.0); HGB 12.9 gm/dL (11.4-16.0); Lymphocytes # (A) 2.2 k/uL (1.0-4.8); Lymphocytes % (A) 34 %; MCH 31.7 pg (25.0-35.0); MCHC 32.7 g/dL (31.0-37.0); Mean Platelet Volume 8.3; Monocytes # (A) 0.2 k/uL (0-1.0); Monocytes % (A) 4 %; Neutrophils # (A) 3.7 k/uL (1.3-7.7); Neutrophils % (A) 58 %; Platelet Count 204 k/uL (150-450); RBC 4.07 m/uL (3.80-5.40); RDW 12.8 % (11.5-15.5); WBC 6.4 k/uL (3.8-10.6)
[2021-09-12 20:52] LABS: Appearance,Urine Cloudy (Clear); Bacteria,Urine Rare /hpf; Bilirubin,Urine Negative (Negative); Blood,Urine Small (Negative); Color,Urine Yellow; Glucose,Urine (UA) Negative (Negative); Hyaline Casts,Urine 4 /lpf (0-2); Ketones,Urine Negative (Negative); Leukocyte Esterase,Urine Large (Negative); Mucus,Urine Rare /hpf; Nitrite,Urine Negative (Negative); PH, Urine 5.5 (5.0-8.0); Protein,Urine Negative (Negative); RBC,Urine 3 /hpf (0-5); Specific Gravity,Urine 1.023 (1.001-1.035); Squamous Epithelial Cell,Urine 11 /hpf (0-4); Urobilinogen,Urine <2.0 mg/dL (<2.0); WBC,Urine 17 /hpf (0-5)
[2021-09-12 21:03] LABS: ALT 10 U/L (4-34); AST 17 U/L (14-36); African American GFR (CKD) >90 (>60 ml/min/1.73 sqM); Albumin 3.7 g/dL (3.5-5.0); Alkaline Phosphatase 50 U/L (38-126); Amylase 78 U/L (30-110); Anion Gap 8 mmol/L; Blood Urea Nitrogen 14 mg/dL (7-17); Carbon Dioxide 25 mmol/L (22-30); Chloride 106 mmol/L (98-107); Glucose 83 mg/dL (74-99); Lipase 130 U/L (23-300); Non-African American GFR(CKD) >90 (>60 ml/min/1.73 sqM); Potassium 4.3 mmol/L (3.5-5.1); Sodium 139 mmol/L (137-145); Total Bilirubin 0.2 mg/dL (0.2-1.3); Total Protein 6.9 g/dL (6.3-8.2)
--- NOTE | 2021-09-12 21:09 | XR ---
EXAMINATION TYPE: XR KUB DATE OF EXAM: 09/12/2021 COMPARISON: 04/18/2021 HISTORY: Abdominal pain TECHNIQUE: 2 views upright FINDINGS: Bowel gas pattern is normal. There is no sign of intestinal obstruction or pneumoperitoneum . Fecal pattern is normal. Lung bases are clear. IMPRESSION: Nonacute abdomen. No change.
[2021-09-12] MEDS ORDERED: methylPREDNISolone SOD SUCCI 125 MG/2 ML VIAL IV STA (21:53)
[2021-09-12 22:08] VITALS: RESP 16
[2021-09-12 22:41] LABS: INR 0.9 (<1.2); Partial Thromboplastin Time 22.3 sec (22.0-30.0)
[2021-09-12] MEDS ORDERED: diphenhydrAMINE 50 MG/ML 1 ML VIAL IVP STA (22:48)
[2021-09-12 23:01] VITALS: BP 96/52; PULSE 77; TEMP 98.3
== END 2021-09-12 23:14 | disposition home or self-care (01) ==
LOC: EC 19:52
DX: R10.32 Left lower quadrant pain (principal); F41.9 Anxiety disorder, unspecified; F31.9 Bipolar disorder, unspecified; F43.12 Post-traumatic stress disorder, chronic; Z88.1 Allergy status to other antibiotic agents; Z90.49 Acquired absence of other specified parts of digestive tract
CPT/HCPCS: 99284; 96374; 96375 ×2; 96376; 36415; 80053; 82150; 83605; 83690; 85025; 85610; 85730; 81001; 81025; 87086; 74018; J1200; J2930; J1170

== ENCOUNTER 2021-09-22 05:56 | Emergency (ER) | payer MEDICARE, OTHER ==
[2021-09-22 06:02] VITALS: TEMP 98.4
[2021-09-22] MEDS ORDERED: SODIUM CHLORIDE 0.9% 2,000 ML IV STA (06:06)
[2021-09-22] MEDS ORDERED: HYDROmorphone 0.5 MG/0.5 ML SYRINGE IVP STA (06:32)
[2021-09-22] MEDS ORDERED: diphenhydrAMINE 50 MG/ML 1 ML VIAL IVP STA (06:32)
[2021-09-22 06:39] LABS: Basophils % (A) 0 %; Eosinophils % (A) 1 %; HGB 12.6 gm/dL (11.4-16.0); Lymphocytes # (A) 1.9 k/uL (1.0-4.8); Lymphocytes % (A) 22 %; MCH 30.9 pg (25.0-35.0); MCHC 32.3 g/dL (31.0-37.0); MCV 95.7 fL (80.0-100.0); Mean Platelet Volume 7.1; Monocytes # (A) 0.5 k/uL (0-1.0); Monocytes % (A) 6 %; Neutrophils # (A) 5.9 k/uL (1.3-7.7); Neutrophils % (A) 69 %; Platelet Count 318 k/uL (150-450); RBC 4.07 m/uL (3.80-5.40); RDW 12.8 % (11.5-15.5); WBC 8.7 k/uL (3.8-10.6)
[2021-09-22 06:51] LABS: ALT 17 U/L (4-34); AST 20 U/L (14-36); African American GFR (CKD) >90 (>60 ml/min/1.73 sqM); Albumin 4.2 g/dL (3.5-5.0); Alkaline Phosphatase 71 U/L (38-126); Anion Gap 9 mmol/L; Blood Urea Nitrogen 12 mg/dL (7-17); Calcium 9.3 mg/dL (8.4-10.2); Carbon Dioxide 24 mmol/L (22-30); Chloride 103 mmol/L (98-107); Glucose 98 mg/dL (74-99); Lipase 72 U/L (23-300); Non-African American GFR(CKD) >90 (>60 ml/min/1.73 sqM); Potassium 3.7 mmol/L (3.5-5.1); Sodium 136 mmol/L (137-145); Total Bilirubin 0.3 mg/dL (0.2-1.3); Total Protein 8.1 g/dL (6.3-8.2)
[2021-09-22 06:57] LABS: Appearance,Urine Clear (Clear); Bilirubin,Urine Negative (Negative); Blood,Urine Small (Negative); Color,Urine Yellow; Glucose,Urine (UA) Negative (Negative); Ketones,Urine Negative (Negative); Leukocyte Esterase,Urine Negative (Negative); Mucus,Urine Occasional /hpf; Nitrite,Urine Negative (Negative); Protein,Urine Negative (Negative); RBC,Urine <1 /hpf (0-5); Specific Gravity,Urine 1.018 (1.001-1.035); Squamous Epithelial Cell,Urine <1 /hpf (0-4); Urobilinogen,Urine <2.0 mg/dL (<2.0); WBC,Urine 1 /hpf (0-5)
--- NOTE | 2021-09-22 07:18 | ED ---
General Adult HPI - General Chief complaint: Nausea/Vomiting/Diarrhea Stated complaint: Vomiting, Bowel obstruction Time Seen by Provider: 09/22/21 06:03 Source: patient, RN notes reviewed Mode of arrival: ambulatory Limitations: no limitations - History of Present Illness Initial comments: This a 26-year-old female presents emergency Department chief complaint abdominal issues. Patient states that she has known Crohn's in which she's had 2 bowel resections in the past, wound dilations for stenosis. Patient states that over the last week or 2 she's been having worsening symptoms she's had decreased stool output at one point she had no output. Patient states that she's been vomiting., Complaint sore throat, fever. Patient complains of left lower quadrant abdominal pain which has been consistent for this patient. She has no dysuria no hematuria. - Related Data Home Medications Medication Instructions Recorded Confirmed Medroxyprogesterone Acetate 150 mg IM Q84D 03/10/18 09/12/21 [Depo-Provera] Lurasidone [Latuda] 80 mg PO HS 03/07/19 09/12/21 Benztropine Mesylate [Cogentin] 2 mg PO BID PRN 12/06/19 09/12/21 Ustekinumab [Stelara] 90 mg IM Q56D 12/06/19 09/12/21 Dicyclomine [Bentyl] 10 mg PO QID PRN 05/17/20 09/12/21 FLUoxetine HCL [PROzac Weekly] 90 mg PO WE 05/17/20 09/12/21 hydrOXYzine pamoate [Vistaril] 50 mg PO QID PRN 05/17/20 09/12/21 oxyCODONE HCL/ACETAMINOPHEN 1 tab PO BID PRN 05/17/20 09/12/21 [Percocet 7.5-325 mg] Amitriptyline HCl [Elavil] 10 mg PO BID 08/05/21 09/12/21 Fluticasone Nasal [place] [Flonase 2 spr EA NOSTRIL DAILY PRN 08/05/21 09/12/21 Nasal [place]] Loratadine [Claritin] 10 mg PO DAILY PRN 08/05/21 09/12/21 Prochlorperazine [Compazine] 20 mg PO Q6H PRN 08/05/21 09/12/21 Dextroamphetamine/Amphetamine 25 mg PO DAILY 09/12/21 09/12/21 [Adderall Xr] Tamsulosin HCl [Flomax] 0.4 mg PO HS 09/12/21 09/12/21 Allergies Allergy/AdvReac Type Severity Reaction Status Date / Time adalimumab [From Humira] Allergy RASH/NAUSEA/VOMITING/JOINT Verified 09/22/21 06:02 PAIN amoxicillin trihydrate Allergy Rash/Hives Verified 09/22/21 06:02 [From Augmentin] potassium clavulanate Allergy Rash/Hives Verified 09/22/21 06:02 [From Augmentin] Review of Systems ROS Statement: Those systems with pertinent positive or pertinent negative responses have been documented in the HPI. ROS Other: All systems not noted in ROS Statement are negative. Past Medical History Past Medical History: No Reported History Additional Past Medical History / Comment(s): crohns, IBD, colitis dx of crohns at age 10., Bloodclots in right arm, PICC line. 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, MRSA Date of last positivie culture/infection: 2002, Jul 2019 cdiff MDRO Source:: Hip Past Surgical History: Bowel Resection, Cholecystectomy Additional Past Surgical History / Comment(s): wisdom teeth, bowel resection x 2 in 2017, sepsis after first surgery, 2 PICC lines removed, Port removed Past Anesthesia/Blood Transfusion Reactions: No Reported Reaction Past Psychological History: Anxiety, Bipolar, Depression, PTSD Smoking Status: Never smoker Past Alcohol Use History: None Reported Past Drug Use History: None Reported - Past Family History Mother Family Medical History: Cancer Father Family Medical History: No Reported History General Exam Limitations: no limitations General appearance: alert, in no apparent distress Head exam: Present: atraumatic, normocephalic, normal inspection Neck exam: Present: normal inspection, full ROM. Absent: tenderness, meningismus, lymphadenopathy Respiratory exam: Present: normal lung sounds bilaterally. Absent: respiratory distress, wheezes, rales, rhonchi, stridor Cardiovascular Exam: Present: regular rate, normal rhythm, normal heart sounds. Absent: systolic murmur, diastolic murmur, rubs, gallop, clicks GI/Abdominal exam: Present: soft, tenderness, normal bowel sounds. Absent: distended, guarding, rebound, rigid Back exam: Absent: CVA tenderness (R), CVA tenderness (L) Neurological exam: Present: alert Course Vital Signs 09/22/21 09/22/21 05:58 07:34 Temperature 98.4 F Pulse Rate 96 86 Respiratory 22 18 Rate Blood Pressure 119/79 112/58 O2 Sat by Pulse 100 99 Oximetry Medical Decision Making - Medical Decision Making CT does not reveal any evidence of obstruction, no inflammatory process. Labs unremarkable and no changes from prior labs. Patient will be discharged with magnesium citrate, Therevac issue stool throughout her colon and has been constipated. Patient will follow-up with her GI physician return parameters were discussed. - Lab Data Result diagrams: 09/22/21 06:31 09/22/21 06:31 Lab Results 09/22/21 09/22/21 09/22/21 Range/Units 06:31 06:31 06:31 WBC 8.7 (3.8-10.6) k/uL RBC 4.07 (3.80-5.40) m/uL Hgb 12.6 (11.4-16.0) gm/dL Hct 39.0 (34.0-46.0) % MCV 95.7 (80.0-100.0) fL MCH 30.9 (25.0-35.0) pg MCHC 32.3 (31.0-37.0) g/dL RDW 12.8 (11.5-15.5) % Plt Count 318 (150-450) k/uL MPV 7.1 Neutrophils % 69 % Lymphocytes % 22 % Monocytes % 6 % Eosinophils % 1 % Basophils % 0 % Neutrophils # 5.9 (1.3-7.7) k/uL Lymphocytes # 1.9 (1.0-4.8) k/uL Monocytes # 0.5 (0-1.0) k/uL Eosinophils # 0.0 (0-0.7) k/uL Basophils # 0.0 (0-0.2) k/uL Sodium (137-145) mmol/L Potassium (3.5-5.1) mmol/L Chloride (98-107) mmol/L Carbon Dioxide (22-30) mmol/L Anion Gap mmol/L BUN (7-17) mg/dL Creatinine (0.52-1.04) mg/dL Est GFR (CKD-EPI)AfAm (>60 ml/min/1.73 sqM) Est GFR (CKD-EPI)NonAf (>60 ml/min/1.73 sqM) Glucose (74-99) mg/dL Plasma Lactic Acid Rehan (0.7-2.0) mmol/L Calcium (8.4-10.2) mg/dL Total Bilirubin (0.2-1.3) mg/dL AST (14-36) U/L ALT (4-34) U/L Alkaline Phosphatase (38-126) U/L Total Protein (6.3-8.2) g/dL Albumin (3.5-5.0) g/dL Lipase (23-300) U/L Urine Color Yellow Urine Appearance Clear (Clear) Urine pH 6.0 (5.0-8.0) Ur Specific [place] 1.018 (1.001-1.035) Urine Protein Negative (Negative) Urine Glucose (UA) Negative (Negative) Urine Ketones Negative (Negative) Urine Blood Small H (Negative) Urine Nitrite Negative (Negative) Urine Bilirubin Negative (Negative) Urine Urobilinogen <2.0 (<2.0) mg/dL Ur Leukocyte Esterase Negative (Negative) Urine RBC <1 (0-5) /hpf Urine WBC 1 (0-5) /hpf Ur Squamous Epith Cells <1 (0-4) /hpf Urine Mucus Occasional H (None) /hpf Urine HCG, Qual Not Detected (Not Detectd) Coronavirus (PCR) (Not Detectd) 09/22/21 09/22/21 09/22/21 Range/Units 06:31 06:31 07:40 WBC (3.8-10.6) k/uL RBC (3.80-5.40) m/uL Hgb (11.4-16.0) gm/dL Hct (34.0-46.0) % MCV (80.0-100.0) fL MCH (25.0-35.0) pg MCHC (31.0-37.0) g/dL RDW (11.5-15.5) % Plt Count (150-450) k/uL MPV Neutrophils % % Lymphocytes % % Monocytes % % Eosinophils % % Basophils % % Neutrophils # (1.3-7.7) k/uL Lymphocytes # (1.0-4.8) k/uL Monocytes # (0-1.0) k/uL Eosinophils # (0-0.7) k/uL Basophils # (0-0.2) k/uL Sodium 136 L (137-145) mmol/L Potassium 3.7 (3.5-5.1) mmol/L Chloride 103 (98-107) mmol/L Carbon Dioxide 24 (22-30) mmol/L Anion Gap 9 mmol/L BUN 12 (7-17) mg/dL Creatinine 0.66 (0.52-1.04) mg/dL Est GFR (CKD-EPI)AfAm >90 (>60 ml/min/1.73 sqM) Est GFR (CKD-EPI)NonAf >90 (>60 ml/min/1.73 sqM) Glucose 98 (74-99) mg/dL Plasma Lactic Acid Rehan 0.9 (0.7-2.0) mmol/L Calcium 9.3 (8.4-10.2) mg/dL Total Bilirubin 0.3 (0.2-1.3) mg/dL AST 20 (14-36) U/L ALT 17 (4-34) U/L Alkaline Phosphatase 71 (38-126) U/L Total Protein 8.1 (6.3-8.2) g/dL Albumin 4.2 (3.5-5.0) g/dL Lipase 72 (23-300) U/L Urine Color Urine Appearance (Clear) Urine pH (5.0-8.0) Ur Specific [place] (1.001-1.035) Urine Protein (Negative) Urine Glucose (UA) (Negative) Urine Ketones (Negative) Urine Blood (Negative) Urine Nitrite (Negative) Urine Bilirubin (Negative) Urine Urobilinogen (<2.0) mg/dL Ur Leukocyte Esterase (Negative) Urine RBC (0-5) /hpf Urine WBC (0-5) /hpf Ur Squamous Epith Cells (0-4) /hpf Urine Mucus (None) /hpf Urine HCG, Qual (Not Detectd) Coronavirus (PCR) Not Detected (Not Detectd) Disposition Clinical Impression: Crohn disease, Nausea and vomiting, Abdominal pain, Constipation Disposition: HOME SELF-CARE Condition: Stable Instructions (If sedation given, give patient instructions): Abdominal Pain (ED) Additional Instructions: Please return to the Emergency Department if symptoms worsen or any other concerns. Is patient prescribed a controlled substance at d/c from ED?: No Referrals: Charlotte Slade MD [Primary Care Provider] - 1-2 days Time of Disposition: 08:18
--- NOTE | 2021-09-22 07:34 | CT ---
EXAMINATION TYPE: CT abdomen pelvis w con DATE OF EXAM: 09/22/2021 COMPARISON: 08/05/2021 HISTORY: Crohns, llq pain, history of colon resection CT DLP: 599.7 mGycm Automated exposure control for dose reduction was used. TECHNIQUE: Helical acquisition of images was performed from the lung bases through the pelvis. CONTRAST: Performed without Oral Contrast and with IV Contrast, patient injected with 100 mL of Isovue 300. FINDINGS: The lung bases are clear. There are 2 small ill-defined hypodensities in the inferior aspect of the posterior segment of the ri ght lobe of liver which most like represent hemangiomas. There is surgical absence of the gallbladder and no biliary ductal dilatation. There is no focal mass within the pancreas, spleen or adrenal glan ds. Kidneys excrete contrast promptly and symmetrically and there is no solid renal mass or hydronephrosi s. There is no retroperitoneal adenopathy or hemorrhage in the caliber of the abdominal aorta is norm al. There are postsurgical changes involving the proximal transverse colon otherwise the bowel is normal without obstruction. No inflammatory changes are identified within the mesentery and there is no free intraperitoneal air or fluid. There is no pelvic mass, free fluid, abscess or adenopathy. The osseous structures are intact. IMPRESSION: 1. Postsurgical changes involving the proximal transverse colon which were seen previously. 2. Cholecystectomy. 3. No acute changes identified within the abdomen including no evidence of free intraperitoneal air, fluid, bowel obstruction or inflammation. No renal mass or hydronephrosis.
[2021-09-22 07:38] VITALS: BP 112/58; PULSE 86; RESP 18
[2021-09-22] MEDS ORDERED: DOCUSATE 283 MG/5 ML ENEMA RECTAL STA (08:17)
[2021-09-22] MEDS ORDERED: MAGNESIUM CITRATE 296 ML BOTTLE PO ONE (08:17)
== END 2021-09-22 08:42 | disposition home or self-care (01) ==
LOC: EC 05:56
DX: K50.90 Crohn's disease, unspecified, without complications (principal); K59.00 Constipation, unspecified; Z20.822 Contact with and (suspected) exposure to COVID-19; F31.9 Bipolar disorder, unspecified; F41.9 Anxiety disorder, unspecified; Z79.899 Other long term (current) drug therapy
CPT/HCPCS: 36415; 80053; 83605; 83690; 85025; 81001; 81025; 87635; 74177; 96374; 96375 ×2; 96361 ×2; 99284; J1200; J1170; Q9967; J1790

== ENCOUNTER 2021-10-10 20:59 | Emergency (ER) | payer MEDICARE, OTHER ==
[2021-10-10 21:03] VITALS: TEMP 98.1
[2021-10-10] MEDS ORDERED: SODIUM CHLORIDE 0.9% 1,000 ML IV ONE (21:16)
[2021-10-10] MEDS ORDERED: ONDANSETRON 4 MG/2 ML VIAL IVP STA (21:42)
[2021-10-10] MEDS ORDERED: MORPHINE SULFATE 4 MG/ML SYRINGE IV STA ×3 (21:42→23:32)
[2021-10-10 21:46] LABS: Basophils # (A) 0.1 k/uL (0-0.2); Basophils % (A) 1 %; Eosinophils # (A) 0.1 k/uL (0-0.7); Eosinophils % (A) 2 %; HCT 43.3 % (34.0-46.0); HGB 14.1 gm/dL (11.4-16.0); Lymphocytes # (A) 3.2 k/uL (1.0-4.8); Lymphocytes % (A) 38 %; MCH 30.6 pg (25.0-35.0); MCHC 32.5 g/dL (31.0-37.0); MCV 94.2 fL (80.0-100.0); Mean Platelet Volume 7.3; Monocytes # (A) 0.3 k/uL (0-1.0); Monocytes % (A) 3 %; Neutrophils # (A) 4.6 k/uL (1.3-7.7); Neutrophils % (A) 55 %; Platelet Count 281 k/uL (150-450); RDW 11.8 % (11.5-15.5); WBC 8.4 k/uL (3.8-10.6)
--- NOTE | 2021-10-10 21:46 | ED ---
General Adult HPI - General Chief complaint: Nausea/Vomiting/Diarrhea Stated complaint: dehydration Time Seen by Provider: 10/10/21 21:14 Source: patient Mode of arrival: ambulatory Limitations: no limitations - History of Present Illness Initial comments: This patient is a 26-year-old woman with history of Crohn's colitis. She has been having abdominal pains and vomiting since Friday. She tried managing at home with the Percocet and Zofran that she is prescribed. She states that now she is not keeping any medication down. 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 Patient is not noting any fever or chills. No blood or mucus in the stools. Onset/Timin -: days(s) Location: abdomen Radiation: non-radiation Quality: aching, sharp Consistency: constant Improves with: none Worsens with: none Associated Symptoms: nausea/vomiting Treatments Prior to Arrival: none - Related Data Home Medications Medication Instructions Recorded Confirmed Medroxyprogesterone Acetate 150 mg IM Q84D 03/10/18 10/10/21 [Depo-Provera] Lurasidone [Latuda] 80 mg PO HS 03/07/19 10/10/21 Benztropine Mesylate [Cogentin] 2 mg PO BID PRN 12/06/19 10/10/21 Ustekinumab [Stelara] 90 mg IM Q56D 12/06/19 10/10/21 Dicyclomine [Bentyl] 10 mg PO QID PRN 05/17/20 10/10/21 FLUoxetine HCL [PROzac Weekly] 90 mg PO WE@2100 05/17/20 10/10/21 hydrOXYzine pamoate [Vistaril] 50 mg PO QID PRN 05/17/20 10/10/21 oxyCODONE HCL/ACETAMINOPHEN 1 tab PO BID PRN 05/17/20 10/10/21 [Percocet 7.5-325 mg] Amitriptyline HCl [Elavil] 10 mg PO BID 08/05/21 10/10/21 Fluticasone Nasal [place] [Flonase 2 spr EA NOSTRIL DAILY PRN 08/05/21 10/10/21 Nasal [place]] Loratadine [Claritin] 10 mg PO DAILY PRN 08/05/21 10/10/21 Prochlorperazine [Compazine] 20 mg PO Q6H PRN 08/05/21 10/10/21 Dextroamphetamine/Amphetamine 25 mg PO DAILY 09/12/21 10/10/21 [Adderall Xr] Tamsulosin HCl [Flomax] 0.4 mg PO DIRECTED 09/12/21 10/10/21 Allergies Allergy/AdvReac Type Severity Reaction Status Date / Time adalimumab [From Humira] Allergy RASH/NAUSEA/VOMITING/JOINT Verified 10/10/21 22:10 PAIN amoxicillin trihydrate Allergy Rash/Hives Verified 10/10/21 22:10 [From Augmentin] potassium clavulanate Allergy Rash/Hives Verified 10/10/21 22:10 [From Augmentin] Review of Systems ROS Statement: Those systems with pertinent positive or pertinent negative responses have been documented in the HPI. ROS Other: All systems not noted in ROS Statement are negative. Constitutional: Denies: fever, chills Respiratory: Denies: cough, dyspnea Cardiovascular: Denies: chest pain, palpitations Gastrointestinal: Reports: abdominal pain, nausea, vomiting. Denies: diarrhea, constipation, melena, hematochezia Genitourinary: Denies: dysuria, hematuria, abnormal menses Musculoskeletal: Denies: back pain Skin: Denies: rash Neurological: Denies: headache, weakness Past Medical History Past Medical History: No Reported History Additional Past Medical History / Comment(s): crohns, IBD, colitis dx of crohns at age 10., Bloodclots in right arm, PICC line. 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, MRSA Date of last positivie culture/infection: 2002, Jul 2019 cdiff MDRO Source:: Hip Past Surgical History: Bowel Resection, Cholecystectomy Additional Past Surgical History / Comment(s): wisdom teeth, bowel resection x 2 in 2017, sepsis after first surgery, 2 PICC lines removed, Port removed Past Anesthesia/Blood Transfusion Reactions: No Reported Reaction Past Psychological History: Anxiety, Bipolar, Depression, PTSD Smoking Status: Never smoker Past Alcohol Use History: None Reported Past Drug Use History: None Reported - Past Family History Mother Family Medical History: Cancer Father Family Medical History: No Reported History General Exam Limitations: no limitations General appearance: alert, in no apparent distress Head exam: Present: atraumatic, normocephalic Eye exam: Present: normal appearance. Absent: scleral icterus, conjunctival injection ENT exam: Present: normal oropharynx Neck exam: Present: normal inspection Respiratory exam: Present: normal lung sounds bilaterally. Absent: respiratory distress, wheezes, rales, rhonchi, stridor Cardiovascular Exam: Present: regular rate, normal rhythm, normal heart sounds. Absent: systolic murmur, diastolic murmur, rubs, gallop GI/Abdominal exam: Present: soft. Absent: distended, tenderness, guarding, rebound, rigid, mass, pulsatile mass, hernia Extremities exam: Present: normal inspection, normal capillary refill. Absent: pedal edema, calf tenderness Back exam: Present: normal inspection. Absent: CVA tenderness (R), CVA tenderne ss (L) Neurological exam: Present: alert Skin exam: Present: warm, dry, intact, normal color. Absent: rash Course Vital Signs 10/10/21 10/10/21 21:00 22:54 Temperature 98.1 F Pulse Rate 78 93 Respiratory 20 18 Rate Blood Pressure 114/84 114/79 O2 Sat by Pulse 98 98 Oximetry Medical Decision Making - Lab Data Result diagrams: 10/10/21 21:32 10/10/21 21:32 Lab Results 10/10/21 10/10/21 10/10/21 Range/Units 21:32 21:32 21:32 WBC 8.4 (3.8-10.6) k/uL RBC 4.60 (3.80-5.40) m/uL Hgb 14.1 (11.4-16.0) gm/dL Hct 43.3 (34.0-46.0) % MCV 94.2 (80.0-100.0) fL MCH 30.6 (25.0-35.0) pg MCHC 32.5 (31.0-37.0) g/dL RDW 11.8 (11.5-15.5) % Plt Count 281 (150-450) k/uL MPV 7.3 Neutrophils % 55 % Lymphocytes % 38 % Monocytes % 3 % Eosinophils % 2 % Basophils % 1 % Neutrophils # 4.6 (1.3-7.7) k/uL Lymphocytes # 3.2 (1.0-4.8) k/uL Monocytes # 0.3 (0-1.0) k/uL Eosinophils # 0.1 (0-0.7) k/uL Basophils # 0.1 (0-0.2) k/uL Sodium 137 (137-145) mmol/L Potassium 3.9 (3.5-5.1) mmol/L Chloride 102 (98-107) mmol/L Carbon Dioxide 24 (22-30) mmol/L Anion Gap 11 mmol/L BUN 8 (7-17) mg/dL Creatinine 0.65 (0.52-1.04) mg/dL Est GFR (CKD-EPI)AfAm >90 (>60 ml/min/1.73 sqM) Est GFR (CKD-EPI)NonAf >90 (>60 ml/min/1.73 sqM) Glucose 91 (74-99) mg/dL Plasma Lactic Acid Rehan 1.3 (0.7-2.0) mmol/L Calcium 9.5 (8.4-10.2) mg/dL Total Bilirubin 0.3 (0.2-1.3) mg/dL AST 20 (14-36) U/L ALT 12 (4-34) U/L Alkaline Phosphatase 74 (38-126) U/L C-Reactive Protein <0.5 (<1.0) mg/dL Total Protein 8.4 H (6.3-8.2) g/dL Albumin 4.6 (3.5-5.0) g/dL Amylase 61 (30-110) U/L Lipase 64 (23-300) U/L HCG, Quant <2.4 mIU/mL Urine HCG, Qual (Not Detectd) 10/10/21 Range/Units 21:32 WBC (3.8-10.6) k/uL RBC (3.80-5.40) m/uL Hgb (11.4-16.0) gm/dL Hct (34.0-46.0) % MCV (80.0-100.0) fL MCH (25.0-35.0) pg MCHC (31.0-37.0) g/dL RDW (11.5-15.5) % Plt Count (150-450) k/uL MPV Neutrophils % % Lymphocytes % % Monocytes % % Eosinophils % % Basophils % % Neutrophils # (1.3-7.7) k/uL Lymphocytes # (1.0-4.8) k/uL Monocytes # (0-1.0) k/uL Eosinophils # (0-0.7) k/uL Basophils # (0-0.2) k/uL Sodium (137-145) mmol/L Potassium (3.5-5.1) mmol/L Chloride (98-107) mmol/L Carbon Dioxide (22-30) mmol/L Anion Gap mmol/L BUN (7-17) mg/dL Creatinine (0.52-1.04) mg/dL Est GFR (CKD-EPI)AfAm (>60 ml/min/1.73 sqM) Est GFR (CKD-EPI)NonAf (>60 ml/min/1.73 sqM) Glucose (74-99) mg/dL Plasma Lactic Acid Rehan (0.7-2.0) mmol/L Calcium (8.4-10.2) mg/dL Total Bilirubin (0.2-1.3) mg/dL AST (14-36) U/L ALT (4-34) U/L Alkaline Phosphatase (38-126) U/L C-Reactive Protein (<1.0) mg/dL Total Protein (6.3-8.2) g/dL Albumin (3.5-5.0) g/dL Amylase (30-110) U/L Lipase (23-300) U/L HCG, Quant mIU/mL Urine HCG, Qual Not Detected (Not Detectd) Disposition Clinical Impression: Abdominal pain, Nausea and vomiting Disposition: HOME SELF-CARE Condition: Good Instructions (If sedation given, give patient instructions): Acute Nausea and Vomiting (ED), Abdominal Pain (ED) Is patient prescribed a controlled substance at d/c from ED?: No Referrals: Charlotte Slade MD [Primary Care Provider] - 1-2 days
[2021-10-10 21:59] LABS: ALT 12 U/L (4-34); AST 20 U/L (14-36); African American GFR (CKD) >90 (>60 ml/min/1.73 sqM); Albumin 4.6 g/dL (3.5-5.0); Alkaline Phosphatase 74 U/L (38-126); Amylase 61 U/L (30-110); Anion Gap 11 mmol/L; Blood Urea Nitrogen 8 mg/dL (7-17); C Reactive Protein <0.5 mg/dL (<1.0); Calcium 9.5 mg/dL (8.4-10.2); Carbon Dioxide 24 mmol/L (22-30); Chloride 102 mmol/L (98-107); Glucose 91 mg/dL (74-99); Lipase 64 U/L (23-300); Non-African American GFR(CKD) >90 (>60 ml/min/1.73 sqM); Potassium 3.9 mmol/L (3.5-5.1); Sodium 137 mmol/L (137-145); Total Bilirubin 0.3 mg/dL (0.2-1.3); Total Protein 8.4 g/dL (6.3-8.2)
[2021-10-10 22:12] LABS: HCG,Quantitative Serum <2.4 mIU/mL
[2021-10-10 22:55] VITALS: BP 114/79; PULSE 93; RESP 18
== END 2021-10-10 23:54 | disposition home or self-care (01) ==
LOC: EC 20:59
DX: R10.9 Unspecified abdominal pain (principal); R11.2 Nausea with vomiting, unspecified; F41.9 Anxiety disorder, unspecified; F31.9 Bipolar disorder, unspecified; F43.10 Post-traumatic stress disorder, unspecified; Z90.49 Acquired absence of other specified parts of digestive tract
CPT/HCPCS: 99284; 96374; 96375; 96376 ×2; 36415; 80053; 82150; 83605; 83690; 85025; 86140; 81025; 84702; J2270; J2405

== ENCOUNTER 2021-10-28 02:21 | Emergency (ER) | payer MEDICARE, OTHER ==
[2021-10-28 02:25] VITALS: TEMP 97.9
[2021-10-28] MEDS ORDERED: SODIUM CHLORIDE 0.9% 1,000 ML IV STA ×2 (02:35)
[2021-10-28] MEDS ORDERED: diphenhydrAMINE 50 MG/ML 1 ML VIAL IVP STA (02:35)
[2021-10-28] MEDS ORDERED: MORPHINE SULFATE 4 MG/ML SYRINGE IV STA (02:35)
[2021-10-28] MEDS ORDERED: SODIUM CHLORIDE 0.9% 500 ML 500 ML IV STA (02:35)
[2021-10-28] MEDS ORDERED: PANTOPRAZOLE 40 MG/10 ML VIAL IVP STA (02:36)
[2021-10-28] MEDS ORDERED: PROCHLORPERAZINE INJ 10 MG/2 ML VIAL IVP STA (02:36)
--- NOTE | 2021-10-28 02:37 | ED ---
Recheck HPI - General Chief Complaint: GI Bleed Stated Complaint: vomiting Time Seen by Provider: 10/28/21 02:25 Source: patient, RN notes reviewed, old records reviewed Mode of arrival: ambulatory Limitations: no limitations - History of Present Illness Initial Comments: This is a 26-year-old female DF for evaluation. Patient is well-known to our emergency department for evaluation regards to abdominal pain nausea vomiting dehydration weakness. She has history of Crohn's severe Crohn's disease. All the above. No other changes. No blood in diarrhea or vomit. No fevers MD Complaint: medication refill request -: hour(s) Returns Today for: request for prescription, persistent/worsening pain related to initial visit Symptoms Since Prior Visit: worsening pain Context: ran out of medication Associated Symptoms: malaise, nausea, abdominal pain Treatments Prior to Arrival: Given Pain Meds on - Related Data Home Medications Medication Instructions Recorded Confirmed Medroxyprogesterone Acetate 150 mg IM Q84D 03/10/18 10/10/21 [Depo-Provera] Lurasidone [Latuda] 80 mg PO HS 03/07/19 10/10/21 Benztropine Mesylate [Cogentin] 2 mg PO BID PRN 12/06/19 10/10/21 Ustekinumab [Stelara] 90 mg IM Q56D 12/06/19 10/10/21 Dicyclomine [Bentyl] 10 mg PO QID PRN 05/17/20 10/10/21 FLUoxetine HCL [PROzac Weekly] 90 mg PO WE@2100 05/17/20 10/10/21 hydrOXYzine pamoate [Vistaril] 50 mg PO QID PRN 05/17/20 10/10/21 oxyCODONE HCL/ACETAMINOPHEN 1 tab PO BID PRN 05/17/20 10/10/21 [Percocet 7.5-325 mg] Amitriptyline HCl [Elavil] 10 mg PO BID 08/05/21 10/10/21 Fluticasone Nasal [place] [Flonase 2 spr EA NOSTRIL DAILY PRN 08/05/21 10/10/21 Nasal [place]] Loratadine [Claritin] 10 mg PO DAILY PRN 08/05/21 10/10/21 Prochlorperazine [Compazine] 20 mg PO Q6H PRN 08/05/21 10/10/21 Dextroamphetamine/Amphetamine 25 mg PO DAILY 09/12/21 10/10/21 [Adderall Xr] Tamsulosin HCl [Flomax] 0.4 mg PO DIRECTED 09/12/21 10/10/21 Allergies Allergy/AdvReac Type Severity Reaction Status Date / Time adalimumab [From Humira] Allergy RASH/NAUSEA/VOMITING/JOINT Verified 10/28/21 02:25 PAIN amoxicillin trihydrate Allergy Rash/Hives Verified 10/28/21 02:25 [From Augmentin] potassium clavulanate Allergy Rash/Hives Verified 10/28/21 02:25 [From Augmentin] Review of Systems ROS Statement: Those systems with pertinent positive or pertinent negative responses have been documented in the HPI. ROS Other: All systems not noted in ROS Statement are negative. Past Medical History Past Medical History: No Reported History Additional Past Medical History / Comment(s): crohns, IBD, colitis dx of crohns at age 10., Bloodclots in right arm, PICC line. 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, MRSA Date of last positivie culture/infection: 2002, Jul 2019 cdiff MDRO Source:: Hip Past Surgical History: Bowel Resection, Cholecystectomy Additional Past Surgical History / Comment(s): wisdom teeth, bowel resection x 2 in 2017, sepsis after first surgery, 2 PICC lines removed, Port removed Past Anesthesia/Blood Transfusion Reactions: No Reported Reaction Past Psychological History: Anxiety, Bipolar, Depression, PTSD Smoking Status: Never smoker Past Alcohol Use History: None Reported Past Drug Use History: None Reported - Past Family History Mother Family Medical History: Cancer Father Family Medical History: No Reported History General Exam General appearance: alert, in no apparent distress, anxious Head exam: Present: atraumatic, normocephalic, normal inspection Eye exam: Present: normal appearance, PERRL, EOMI. Absent: scleral icterus, conjunctival injection, periorbital swelling ENT exam: Present: normal exam, mucous membranes moist Neck exam: Present: normal inspection. Absent: tenderness, meningismus, lymphadenopathy Respiratory exam: Present: normal lung sounds bilaterally. Absent: respiratory distress, wheezes, rales, rhonchi, stridor Cardiovascular Exam: Present: normal rhythm, tachycardia, normal heart sounds. Absent: systolic murmur, diastolic murmur, rubs, gallop, clicks GI/Abdominal exam: Present: soft, tenderness, normal bowel sounds. Absent: distended, guarding, rebound, rigid Extremities exam: Present: normal inspection, full ROM, normal capillary refill. Absent: tenderness, pedal edema, joint swelling, calf tenderness Back exam: Present: normal inspection Neurological exam: Present: alert, oriented X3, CN II-XII intact Psychiatric exam: Present: normal affect, normal mood Skin exam: Present: warm, dry, intact, normal color. Absent: rash Course Vital Signs 10/28/21 10/28/21 10/28/21 02:23 03:31 04:43 Temperature 97.9 F Pulse Rate 107 H 91 64 Respiratory 19 16 16 Rate Blood Pressure 119/67 121/68 117/62 O2 Sat by Pulse 99 97 97 Oximetry 10/28/21 06:19 Temperature Pulse Rate 71 Respiratory 18 Rate Blood Pressure 124/68 O2 Sat by Pulse 97 Oximetry - Reevaluation(s) Reevaluation #1: 10/28/21 Medical record is reviewed Patient symptoms are improved here in the ER Patient feels comfortable for discharge home Medical Decision Making - Medical Decision Making 26 female to the emergency department for evaluation of worsening Crohn's disease and pain. Patient has adequate pain control currently and can be discharged home - Lab Data Result diagrams: 10/28/21 02:45 10/28/21 02:45 Lab Results 10/28/21 10/28/21 10/28/21 Range/Units 02:45 02:45 02:45 WBC 8.8 (3.8-10.6) k/uL RBC 4.23 (3.80-5.40) m/uL Hgb 13.0 (11.4-16.0) gm/dL Hct 39.3 (34.0-46.0) % MCV 92.9 (80.0-100.0) fL MCH 30.6 (25.0-35.0) pg MCHC 33.0 (31.0-37.0) g/dL RDW 13.0 (11.5-15.5) % Plt Count 243 (150-450) k/uL MPV 8.4 Neutrophils % 64 % Lymphocytes % 27 % Monocytes % 6 % Eosinophils % 1 % Basophils % 0 % Neutrophils # 5.7 (1.3-7.7) k/uL Lymphocytes # 2.3 (1.0-4.8) k/uL Monocytes # 0.5 (0-1.0) k/uL Eosinophils # 0.1 (0-0.7) k/uL Basophils # 0.0 (0-0.2) k/uL Sodium (137-145) mmol/L Potassium (3.5-5.1) mmol/L Chloride (98-107) mmol/L Carbon Dioxide (22-30) mmol/L Anion Gap mmol/L BUN (7-17) mg/dL Creatinine (0.52-1.04) mg/dL Est GFR (CKD-EPI)AfAm (>60 ml/min/1.73 sqM) Est GFR (CKD-EPI)NonAf (>60 ml/min/1.73 sqM) Glucose (74-99) mg/dL Lactic Ac Sepsis Rflx Plasma Lactic Acid Rehan (0.7-2.0) mmol/L Calcium (8.4-10.2) mg/dL Total Bilirubin (0.2-1.3) mg/dL AST (14-36) U/L ALT (4-34) U/L Alkaline Phosphatase (38-126) U/L Total Protein (6.3-8.2) g/dL Albumin (3.5-5.0) g/dL Amylase (30-110) U/L Lipase (23-300) U/L Urine Color Light Yellow Urine Appearance Clear (Clear) Urine pH 5.5 (5.0-8.0) Ur Specific [place] 1.007 (1.001-1.035) Urine Protein Negative (Negative) Urine Glucose (UA) Negative (Negative) Urine Ketones Negative (Negative) Urine Blood Trace H (Negative) Urine Nitrite Negative (Negative) Urine Bilirubin Negative (Negative) Urine Urobilinogen <2.0 (<2.0) mg/dL Ur Leukocyte Esterase Small H (Negative) Urine RBC 2 (0-5) /hpf Urine WBC 7 H (0-5) /hpf Urine WBC Clumps Rare H (None) /hpf Ur Squamous Epith Cells 3 (0-4) /hpf Urine Bacteria Rare H (None) /hpf Urine Mucus Rare H (None) /hpf Urine HCG, Qual Not Detected (Not Detectd) 10/28/21 10/28/21 10/28/21 Range/Units 02:45 02:45 03:44 WBC (3.8-10.6) k/uL RBC (3.80-5.40) m/uL Hgb (11.4-16.0) gm/dL Hct (34.0-46.0) % MCV (80.0-100.0) fL MCH (25.0-35.0) pg MCHC (31.0-37.0) g/dL RDW (11.5-15.5) % Plt Count (150-450) k/uL MPV Neutrophils % % Lymphocytes % % Monocytes % % Eosinophils % % Basophils % % Neutrophils # (1.3-7.7) k/uL Lymphocytes # (1.0-4.8) k/uL Monocytes # (0-1.0) k/uL Eosinophils # (0-0.7) k/uL Basophils # (0-0.2) k/uL Sodium 134 L (137-145) mmol/L Potassium 3.7 (3.5-5.1) mmol/L Chloride 102 (98-107) mmol/L Carbon Dioxide 19 L (22-30) mmol/L Anion Gap 13 mmol/L BUN 4 L (7-17) mg/dL Creatinine 0.58 (0.52-1.04) mg/dL Est GFR (CKD-EPI)AfAm >90 (>60 ml/min/1.73 sqM) Est GFR (CKD-EPI)NonAf >90 (>60 ml/min/1.73 sqM) Glucose 126 H (74-99) mg/dL Lactic Ac Sepsis Rflx Y Plasma Lactic Acid Rehan 2.8 H* (0.7-2.0) mmol/L Calcium 8.6 (8.4-10.2) mg/dL Total Bilirubin 0.5 (0.2-1.3) mg/dL AST 29 (14-36) U/L ALT 17 (4-34) U/L Alkaline Phosphatase 54 (38-126) U/L Total Protein 7.6 (6.3-8.2) g/dL Albumin 4.3 (3.5-5.0) g/dL Amylase 45 (30-110) U/L Lipase 35 (23-300) U/L Urine Color Urine Appearance (Clear) Urine pH (5.0-8.0) Ur Specific [place] (1.001-1.035) Urine Protein (Negative) Urine Glucose (UA) (Negative) Urine Ketones (Negative) Urine Blood (Negative) Urine Nitrite (Negative) Urine Bilirubin (Negative) Urine Urobilinogen (<2.0) mg/dL Ur Leukocyte Esterase (Negative) Urine RBC (0-5) /hpf Urine WBC (0-5) /hpf Urine WBC Clumps (None) /hpf Ur Squamous Epith Cells (0-4) /hpf Urine Bacteria (None) /hpf Urine Mucus (None) /hpf Urine HCG, Qual (Not Detectd) - Radiology Data Radiology results: report reviewed (X-ray KUB negative for acute disease), image reviewed Disposition Clinical Impression: Nausea and vomiting, Abdominal pain, Weight loss, Intractable vomiting with nausea, Epigastric abdominal pain Disposition: HOME SELF-CARE Condition: Fair Instructions (If sedation given, give patient instructions): Abdominal Pain ( ED) Is patient prescribed a controlled substance at d/c from ED?: No Referrals: Charlotte Slade MD [Primary Care Provider] - 1-2 days
--- NOTE | 2021-10-28 03:15 | XR ---
EXAMINATION TYPE: XR KUB DATE OF EXAM: 10/28/2021 COMPARISON: 09/12/2021 HISTORY: Pain TECHNIQUE: 2 views upright FINDINGS: Bowel gas pattern is normal. There is no sign of intestinal obstruction or pneumoperitoneum . Fecal pattern is normal. There is no evidence of a mass. There are no pathologic calcifications ove r the kidneys. Lung bases are clear. IMPRESSION: Nonacute abdomen. No change.
[2021-10-28 03:16] LABS: Basophils % (A) 0 %; Eosinophils # (A) 0.1 k/uL (0-0.7); Eosinophils % (A) 1 %; HCT 39.3 % (34.0-46.0); Lymphocytes # (A) 2.3 k/uL (1.0-4.8); Lymphocytes % (A) 27 %; MCH 30.6 pg (25.0-35.0); MCV 92.9 fL (80.0-100.0); Mean Platelet Volume 8.4; Monocytes # (A) 0.5 k/uL (0-1.0); Monocytes % (A) 6 %; Neutrophils # (A) 5.7 k/uL (1.3-7.7); Neutrophils % (A) 64 %; Platelet Count 243 k/uL (150-450); RBC 4.23 m/uL (3.80-5.40); WBC 8.8 k/uL (3.8-10.6)
[2021-10-28 03:23] LABS: ALT 17 U/L (4-34); AST 29 U/L (14-36); African American GFR (CKD) >90 (>60 ml/min/1.73 sqM); Albumin 4.3 g/dL (3.5-5.0); Alkaline Phosphatase 54 U/L (38-126); Amylase 45 U/L (30-110); Anion Gap 13 mmol/L; Blood Urea Nitrogen 4 mg/dL (7-17); Calcium 8.6 mg/dL (8.4-10.2); Carbon Dioxide 19 mmol/L (22-30); Chloride 102 mmol/L (98-107); Glucose 126 mg/dL (74-99); Lipase 35 U/L (23-300); Non-African American GFR(CKD) >90 (>60 ml/min/1.73 sqM); Potassium 3.7 mmol/L (3.5-5.1); Sodium 134 mmol/L (137-145); Total Bilirubin 0.5 mg/dL (0.2-1.3); Total Protein 7.6 g/dL (6.3-8.2)
[2021-10-28 03:58] LABS: Appearance,Urine Clear (Clear); Bacteria,Urine Rare /hpf; Bilirubin,Urine Negative (Negative); Blood,Urine Trace (Negative); Color,Urine Light Yellow; Glucose,Urine (UA) Negative (Negative); Ketones,Urine Negative (Negative); Leukocyte Esterase,Urine Small (Negative); Mucus,Urine Rare /hpf; Nitrite,Urine Negative (Negative); PH, Urine 5.5 (5.0-8.0); Protein,Urine Negative (Negative); RBC,Urine 2 /hpf (0-5); Specific Gravity,Urine 1.007 (1.001-1.035); Squamous Epithelial Cell,Urine 3 /hpf (0-4); Urobilinogen,Urine <2.0 mg/dL (<2.0); WBC,Urine 7 /hpf (0-5)
[2021-10-28 06:21] VITALS: BP 124/68; PULSE 71; RESP 18
[2021-10-28] MEDS ORDERED: HYDROmorphone 0.5 MG/0.5 ML SYRINGE IVP STA (06:40)
== END 2021-10-28 07:01 | disposition home or self-care (01) ==
LOC: EC 02:21
DX: R10.13 Epigastric pain (principal); R11.2 Nausea with vomiting, unspecified; R63.4 Abnormal weight loss; F41.9 Anxiety disorder, unspecified; F31.9 Bipolar disorder, unspecified; F43.10 Post-traumatic stress disorder, unspecified; Z88.1 Allergy status to other antibiotic agents; Z90.49 Acquired absence of other specified parts of digestive tract
CPT/HCPCS: 99285; 96374; 96375 ×4; 36415; 80053; 82150; 83605; 83690; 85025; 81001; 81025; 74018; J2270; J1200; J0780; C9113; J1170

== ENCOUNTER 2021-11-02 21:26 | Emergency (ER) | payer MEDICARE, OTHER ==
[2021-11-02 21:42] VITALS: TEMP 98.6
[2021-11-02] MEDS ORDERED: MORPHINE SULFATE 2 MG/ML SYRINGE IVP STA (22:42)
[2021-11-02] MEDS ORDERED: SODIUM CHLORIDE 0.9% 1,000 ML IV STA (22:42)
[2021-11-02] MEDS ORDERED: SODIUM CHLORIDE 0.9% 500 ML 500 ML IV STA (22:42)
[2021-11-02] MEDS ORDERED: ONDANSETRON 4 MG/2 ML VIAL IVP STA (22:43)
--- NOTE | 2021-11-02 23:50 | ED ---
Abdominal Pain HPI - General Chief Complaint: Abdominal Pain Stated Complaint: Crohn's Flare up Time Seen by Provider: 11/02/21 21:41 Source: patient, family, RN notes reviewed Mode of arrival: ambulatory Limitations: no limitations - History of Present Illness Initial Comments: This is a 26-year-old female who presents to the emergency department with a bdominal pain consistent with a Crohn's flare. States that she has not had a flareup in quite a while, and she has an appointment scheduled with her specialist at [facility] for an MRI and a port placement to get fluids. States that for the last few days, she has been unable to keep down her medication, or any food or liquid. She was also started on Keflex for a UTI a few days ago, however she has also been unable to keep down those antibiotics. She is also having a lot of pain because she is unable to keep down her Percocet. She has not found anything to make her symptoms better at this point, and she comes to the emergency room when she needs symptomatic management. MD Complaint: abdominal pain Consistency: constant Improves With: nothing Associated Symptoms: nausea, vomiting - Related Data Home Medications Medication Instructions Recorded Confirmed Medroxyprogesterone Acetate 150 mg IM Q84D 03/10/18 10/10/21 [Depo-Provera] Lurasidone [Latuda] 80 mg PO HS 03/07/19 10/10/21 Benztropine Mesylate [Cogentin] 2 mg PO BID PRN 12/06/19 10/10/21 Ustekinumab [Stelara] 90 mg IM Q56D 12/06/19 10/10/21 Dicyclomine [Bentyl] 10 mg PO QID PRN 05/17/20 10/10/21 FLUoxetine HCL [PROzac Weekly] 90 mg PO WE@2100 05/17/20 10/10/21 hydrOXYzine pamoate [Vistaril] 50 mg PO QID PRN 05/17/20 10/10/21 oxyCODONE HCL/ACETAMINOPHEN 1 tab PO BID PRN 05/17/20 10/10/21 [Percocet 7.5-325 mg] Amitriptyline HCl [Elavil] 10 mg PO BID 08/05/21 10/10/21 Fluticasone Nasal [place] [Flonase 2 spr EA NOSTRIL DAILY PRN 08/05/21 10/10/21 Nasal [place]] Loratadine [Claritin] 10 mg PO DAILY PRN 08/05/21 10/10/21 Prochlorperazine [Compazine] 20 mg PO Q6H PRN 08/05/21 10/10/21 Dextroamphetamine/Amphetamine 25 mg PO DAILY 09/12/21 10/10/21 [Adderall Xr] Tamsulosin HCl [Flomax] 0.4 mg PO DIRECTED 09/12/21 10/10/21 Previous Rx's Medication Instructions Recorded oxyCODONE-APAP 7.5-325MG [Percocet 1 tab PO BID PRN #8 tab 11/03/21 7.5-325 mg] Allergies Allergy/AdvReac Type Severity Reaction Status Date / Time adalimumab [From Humira] Allergy RASH/NAUSEA/VOMITING/JOINT Verified 11/02/21 21:40 PAIN amoxicillin trihydrate Allergy Rash/Hives Verified 11/02/21 21:40 [From Augmentin] potassium clavulanate Allergy Rash/Hives Verified 11/02/21 21:40 [From Augmentin] Review of Systems ROS Statement: Those systems with pertinent positive or pertinent negative responses have been documented in the HPI. ROS Other: All systems not noted in ROS Statement are negative. Constitutional: Denies: fever, chills ENT: Denies: ear pain, throat pain Respiratory: Denies: cough, dyspnea Cardiovascular: Denies: chest pain, palpitations Endocrine: Reports: fatigue Gastrointestinal: Reports: abdominal pain, nausea, vomiting Genitourinary: Denies: urgency, dysuria Skin: Denies: rash Neurological: Denies: headache Past Medical History Past Medical History: No Reported History Additional Past Medical History / Comment(s): crohns, IBD, colitis dx of crohns at age 10., Bloodclots in right arm, PICC line. 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, MRSA Date of last positivie culture/infection: 2002, Jul 2019 cdiff MDRO Source:: Hip Past Surgical History: Bowel Resection, Cholecystectomy Additional Past Surgical History / Comment(s): wisdom teeth, bowel resection x 2 in 2017, sepsis after first surgery, 2 PICC lines removed, Port removed Past Anesthesia/Blood Transfusion Reactions: No Reported Reaction Past Psychological History: Anxiety, Bipolar, Depression, PTSD Smoking Status: Never smoker Past Alcohol Use History: None Reported Past Drug Use History: None Reported - Past Family History Mother Family Medical History: Cancer Father Family Medical History: No Reported History General Exam Limitations: no limitations General appearance: alert, in distress Respiratory exam: Present: normal lung sounds bilaterally. Absent: respiratory distress, wheezes, rales, rhonchi, stridor Cardiovascular Exam: Present: regular rate, normal rhythm, normal heart sounds. Absent: systolic murmur, diastolic murmur, rubs, gallop, clicks GI/Abdominal exam: Present: soft, tenderness, guarding, normal bowel sounds. Absent: rebound, rigid, organomegaly, mass, bruit Neurological exam: Present: alert, oriented X3, CN II-XII intact Psychiatric exam: Present: normal affect, normal mood Skin exam: Present: warm, dry, intact, normal color. Absent: rash Course Vital Signs 11/02/21 21:40 Temperature 98.6 F Pulse Rate 84 Respiratory 20 Rate Blood Pressure 149/77 O2 Sat by Pulse 100 Oximetry - Reevaluation(s) Reevaluation #1: 11/03/21 01:48 Patient complaining of sudden onset right side pain. Denies any hx of kidney stones. Concerned about a kidney infection. Medical Decision Making - Medical Decision Making This is a 26-year-old female who presents to the emergency department with a Crohn's disease flare up. Given that her symptoms are consistent with prior flareups, we will proceed with symptomatic management. Shared decision-making took place with the patient and her mother, and we discussed that we would avoid any further imaging at this time, as she has had so much imaging in the past, and her symptoms are not different from anything she has had before. Furthermore, she has an extensive amount of bowel adhesions, which makes it difficult to visualize abnormalities on x-rays and CT scans, and is the reason her specialists are proceeding with an MRI. Patient given a 500 mL bolus of normal saline, and started on 50 mL an hour of maintenance fluids. Zofran given for nausea and morphine given for pain. Labwork and urinalysis were unrema rkable. Patient states that she is being treated for a UTI but has not been able to keep down any of the medication. Also states that she is concerned about a developing kidney infection. 1g Ceftriaxone administered since she has not been table to take her antibiotic as instructed. Patient's pain persists despite the morphine, patient has been noted to improve in the past with 1mg of Dilauded, 1mg of Ativan, and 20mg of Benaryl, and she was treated with such. After this combination, her symptoms improved and she was able to eat. States that she is in the process of moving and requests a bridge on her pain medication for 4 days until she is able to get it at the new pharmacy. I am agreeable to this and will provide 8 7.5mg Percocet. Tylenol #3 starter pack provided as well to get the patient through the night. Return precautions reviewed in depth, the patient is instructed to return to the emergency department if symptoms worsen or do not improve. Patient verbalized understanding. This case was discussed in detail with the attending ED physician. Presentation, findings, and treatment plan discussed in detail as well. - Lab Data Result diagrams: 11/03/21 00:15 11/03/21 00:15 Lab Results 11/03/21 11/03/21 11/03/21 Range/Units 00:15 00:15 00:15 WBC 8.6 (3.8-10.6) k/uL RBC 4.45 (3.80-5.40) m/uL Hgb 13.6 (11.4-16.0) gm/dL Hct 40.6 (34.0-46.0) % MCV 91.4 (80.0-100.0) fL MCH 30.5 (25.0-35.0) pg MCHC 33.4 (31.0-37.0) g/dL RDW 12.3 (11.5-15.5) % Plt Count 266 (150-450) k/uL MPV 7.5 Neutrophils % 54 % Lymphocytes % 37 % Monocytes % 6 % Eosinophils % 1 % Basophils % 1 % Neutrophils # 4.6 (1.3-7.7) k/uL Lymphocytes # 3.2 (1.0-4.8) k/uL Monocytes # 0.5 (0-1.0) k/uL Eosinophils # 0.1 (0-0.7) k/uL Basophils # 0.1 (0-0.2) k/uL Sodium 137 (137-145) mmol/L Potassium 4.0 (3.5-5.1) mmol/L Chloride 106 (98-107) mmol/L Carbon Dioxide 24 (22-30) mmol/L Anion Gap 7 mmol/L BUN 9 (7-17) mg/dL Creatinine 0.63 (0.52-1.04) mg/dL Est GFR (CKD-EPI)AfAm >90 (>60 ml/min/1.73 sqM) Est GFR (CKD-EPI)NonAf >90 (>60 ml/min/1.73 sqM) Glucose 82 (74-99) mg/dL Plasma Lactic Acid Rehan 1.0 (0.7-2.0) mmol/L Calcium 8.7 (8.4-10.2) mg/dL Total Bilirubin 0.4 (0.2-1.3) mg/dL AST 19 (14-36) U/L ALT 13 (4-34) U/L Alkaline Phosphatase 65 (38-126) U/L Total Protein 7.5 (6.3-8.2) g/dL Albumin 4.1 (3.5-5.0) g/dL Amylase 70 (30-110) U/L Lipase 93 (23-300) U/L Urine Color Urine Appearance (Clear) Urine pH (5.0-8.0) Ur Specific [place] (1.001-1.035) Urine Protein (Negative) Urine Glucose (UA) (Negative) Urine Ketones (Negative) Urine Blood (Negative) Urine Nitrite (Negative) Urine Bilirubin (Negative) Urine Urobilinogen (<2.0) mg/dL Ur Leukocyte Esterase (Negative) Urine HCG, Qual (Not Detectd) 11/03/21 11/03/21 Range/Units 01:03 01:03 WBC (3.8-10.6) k/uL RBC (3.80-5.40) m/uL Hgb (11.4-16.0) gm/dL Hct (34.0-46.0) % MCV (80.0-100.0) fL MCH (25.0-35.0) pg MCHC (31.0-37.0) g/dL RDW (11.5-15.5) % Plt Count (150-450) k/uL MPV Neutrophils % % Lymphocytes % % Monocytes % % Eosinophils % % Basophils % % Neutrophils # (1.3-7.7) k/uL Lymphocytes # (1.0-4.8) k/uL Monocytes # (0-1.0) k/uL Eosinophils # (0-0.7) k/uL Basophils # (0-0.2) k/uL Sodium (137-145) mmol/L Potassium (3.5-5.1) mmol/L Chloride (98-107) mmol/L Carbon Dioxide (22-30) mmol/L Anion Gap mmol/L BUN (7-17) mg/dL Creatinine (0.52-1.04) mg/dL Est GFR (CKD-EPI)AfAm (>60 ml/min/1.73 sqM) Est GFR (CKD-EPI)NonAf (>60 ml/min/1.73 sqM) Glucose (74-99) mg/dL Plasma Lactic Acid Rehan (0.7-2.0) mmol/L Calcium (8.4-10.2) mg/dL Total Bilirubin (0.2-1.3) mg/dL AST (14-36) U/L ALT (4-34) U/L Alkaline Phosphatase (38-126) U/L Total Protein (6.3-8.2) g/dL Albumin (3.5-5.0) g/dL Amylase (30-110) U/L Lipase (23-300) U/L Urine Color Yellow Urine Appearance Clear (Clear) Urine pH 7.5 (5.0-8.0) Ur Specific [place] 1.023 (1.001-1.035) Urine Protein Trace H (Negative) Urine Glucose (UA) Negative (Negative) Urine Ketones Negative (Negative) Urine Blood Negative (Negative) Urine Nitrite Negative (Negative) Urine Bilirubin Negative (Negative) Urine Urobilinogen <2.0 (<2.0) mg/dL Ur Leukocyte Esterase Negative (Negative) Urine HCG, Qual Not Detected (Not Detectd) Disposition Clinical Impression: Crohn disease Disposition: HOME SELF-CARE Instructions (If sedation given, give patient instructions): Crohn Disease (ED) Additional Instructions: Return to the emergency department if her symptoms worsen or do not improve. Prescriptions: oxyCODONE-APAP 7.5-325MG [Percocet 7.5-325 mg] 1 tab PO BID PRN #8 tab PRN Reason: Pain Is patient prescribed a controlled substance at d/c from ED?: Yes When asked, does pt state using other controlled substances?: Yes If prescribed controlled substance>3 days was MAPS reviewed?: Yes Referrals: Charlotte Slade MD [Primary Care Provider] - 1-2 days
[2021-11-03 00:39] LABS: Basophils # (A) 0.1 k/uL (0-0.2); Basophils % (A) 1 %; Eosinophils # (A) 0.1 k/uL (0-0.7); Eosinophils % (A) 1 %; HCT 40.6 % (34.0-46.0); HGB 13.6 gm/dL (11.4-16.0); Lymphocytes # (A) 3.2 k/uL (1.0-4.8); Lymphocytes % (A) 37 %; MCH 30.5 pg (25.0-35.0); MCHC 33.4 g/dL (31.0-37.0); MCV 91.4 fL (80.0-100.0); Mean Platelet Volume 7.5; Monocytes # (A) 0.5 k/uL (0-1.0); Monocytes % (A) 6 %; Neutrophils # (A) 4.6 k/uL (1.3-7.7); Neutrophils % (A) 54 %; Platelet Count 266 k/uL (150-450); RBC 4.45 m/uL (3.80-5.40); RDW 12.3 % (11.5-15.5); WBC 8.6 k/uL (3.8-10.6)
[2021-11-03] MEDS ORDERED: HYDROmorphone 0.5 MG/0.5 ML SYRINGE IVP STA ×2 (01:00→01:39)
[2021-11-03 01:02] LABS: ALT 13 U/L (4-34); AST 19 U/L (14-36); African American GFR (CKD) >90 (>60 ml/min/1.73 sqM); Albumin 4.1 g/dL (3.5-5.0); Alkaline Phosphatase 65 U/L (38-126); Amylase 70 U/L (30-110); Anion Gap 7 mmol/L; Blood Urea Nitrogen 9 mg/dL (7-17); Calcium 8.7 mg/dL (8.4-10.2); Carbon Dioxide 24 mmol/L (22-30); Chloride 106 mmol/L (98-107); Glucose 82 mg/dL (74-99); Lipase 93 U/L (23-300); Non-African American GFR(CKD) >90 (>60 ml/min/1.73 sqM); Sodium 137 mmol/L (137-145); Total Bilirubin 0.4 mg/dL (0.2-1.3); Total Protein 7.5 g/dL (6.3-8.2)
[2021-11-03 01:18] LABS: Appearance,Urine Clear (Clear); Bilirubin,Urine Negative (Negative); Blood,Urine Negative (Negative); Color,Urine Yellow; Glucose,Urine (UA) Negative (Negative); Ketones,Urine Negative (Negative); Leukocyte Esterase,Urine Negative (Negative); Nitrite,Urine Negative (Negative); PH, Urine 7.5 (5.0-8.0); Protein,Urine Trace (Negative); Specific Gravity,Urine 1.023 (1.001-1.035); Urobilinogen,Urine <2.0 mg/dL (<2.0)
[2021-11-03] MEDS ORDERED: cefTRIAXone IN SWFI 1,000 MG/10 ML SYRINGE IVP STA (01:45)
[2021-11-03] MEDS ORDERED: LORazepam 2 MG/ML INJ IV STA (01:58)
[2021-11-03] MEDS ORDERED: diphenhydrAMINE 50 MG/ML 1 ML VIAL IVP STA (01:59)
[2021-11-03] MEDS ORDERED: ACET/COD 300 MG/30 MG STARTER PACK 6 TAB BTL PO STA (02:41)
[2021-11-03 03:21] VITALS: BP 118/79; PULSE 81; RESP 16
== END 2021-11-03 03:22 | disposition home or self-care (01) ==
LOC: EC 21:26
DX: K50.90 Crohn's disease, unspecified, without complications (principal); F41.9 Anxiety disorder, unspecified; F31.9 Bipolar disorder, unspecified; F43.10 Post-traumatic stress disorder, unspecified; Z90.49 Acquired absence of other specified parts of digestive tract
CPT/HCPCS: 99284; 96374; 96375 ×5; 96376; 96361; 36415; 80053; 82150; 83605; 83690; 85025; 81003; 81025; J2060; J1200; J2405; J0696; J2270; J1170

== ENCOUNTER 2022-02-02 03:42 | Emergency (ER) | payer MEDICARE, OTHER ==
[2022-02-02 03:56] VITALS: RESP 18
[2022-02-02] MEDS ORDERED: SODIUM CHLORIDE 0.9% 1,000 ML IV STA ×2 (03:58)
[2022-02-02] MEDS ORDERED: PANTOPRAZOLE 40 MG/10 ML VIAL IVP STA (03:58)
[2022-02-02] MEDS ORDERED: HYDROmorphone 1 MG/ML 1 ML SYRINGE IVP STA ×2 (03:58→05:26)
[2022-02-02] MEDS ORDERED: ONDANSETRON 4 MG/2 ML VIAL IVP STA (03:58)
--- NOTE | 2022-02-02 03:59 | ED ---
Nausea/Vomiting/Diarrhea HPI - General Chief complaint: Abdominal Pain Stated complaint: Crohn's Flare up Time Seen by Provider: 02/02/22 03:55 Source: patient, RN notes reviewed, old records reviewed Mode of arrival: ambulatory - History of Present Illness Initial comments: This is a 26-year-old female to the emergency room today for evaluation. Patient presents today for evaluation of recurrent abdominal pain. History of Crohn's disease. Patient said failure. Recent medical history with poor placement for IV hydration and symptom control. She has been having difficulty with abdominal pain and following a for evaluation. Patient is having severe abdominal pain today that was worse. No blood in the stool no vomiting no fevers MD complaint: nausea, vomiting, abdominal pain -: days(s) Description of Vomiting: food contents, watery Description of Diarrhea: water, mucous Location: diffuse Radiation: none Severity: moderate, severe Severity scale (1-10): 8 Quality: stabbing, aching Consistency: constant Improves with: none Worsens with: none Context: other (History of Crohn's disease) Associated Symptoms: loss of appetite, nausea/vomiting, weakness - Related Data Home Medications Medication Instructions Recorded Confirmed Medroxyprogesterone Acetate 150 mg IM Q84D 03/10/18 11/29/21 [Depo-Provera] Benztropine Mesylate [Cogentin] 2 mg PO BID PRN 12/06/19 11/29/21 Ustekinumab [Stelara] 90 mg IM Q56D 12/06/19 11/29/21 Dicyclomine [Bentyl] 20 mg PO QID PRN 05/17/20 11/29/21 FLUoxetine HCL [PROzac Weekly] 90 mg PO WE@2100 05/17/20 11/29/21 hydrOXYzine pamoate [Vistaril] 50 mg PO QID PRN 05/17/20 11/29/21 oxyCODONE HCL/ACETAMINOPHEN 1 tab PO BID PRN 05/17/20 11/29/21 [Percocet 7.5-325 mg] Amitriptyline HCl [Elavil] 20 mg PO DIRECTED 08/05/21 11/29/21 Fluticasone Nasal [place] [Flonase 1 spr EA NOSTRIL DAILY PRN 08/05/21 11/29/21 Nasal [place]] Loratadine [Claritin] 10 mg PO DAILY PRN 08/05/21 11/29/21 Dextroamphetamine/Amphetamine 25 mg PO DAILY 09/12/21 11/29/21 [Adderall Xr] Tamsulosin HCl [Flomax] 0.4 mg PO DIRECTED 09/12/21 11/29/21 Clopidogrel [Plavix] 1 tab PO DAILY 11/27/21 11/29/21 Lurasidone HCl [Latuda] 60 mg PO HS 11/29/21 11/29/21 Metoclopramide [Reglan] 10 mg PO DIRECTED PRN 11/29/21 11/29/21 Omeprazole 40 mg PO DIRECTED 11/29/21 11/29/21 Ondansetron [Zofran] 4 mg PO DIRECTED PRN 11/29/21 11/29/21 Allergies Allergy/AdvReac Type Severity Reaction Status Date / Time adalimumab [From Humira] Allergy RASH/NAUSEA/VOMITING/JOINT Verified 02/02/22 03:56 PAIN amoxicillin trihydrate Allergy Rash/Hives Verified 02/02/22 03:56 [From Augmentin] potassium clavulanate Allergy Rash/Hives Verified 02/02/22 03:56 [From Augmentin] Review of Systems ROS Statement: Those systems with pertinent positive or pertinent negative responses have been documented in the HPI. ROS Other: All systems not noted in ROS Statement are negative. Past Medical History Past Medical History: No Reported History Additional Past Medical History / Comment(s): crohns, IBD, colitis dx of crohns at age 10., Bloodclots in right arm,. 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, MRSA Date of last positivie culture/infection: 2002, Jul 2019 cdiff MDRO Source:: Hip Past Surgical History: Appendectomy, Bowel Resection, Cholecystectomy Additional Past Surgical History / Comment(s): wisdom teeth, bowel resection x 2 in 2017, sepsis after first surgery, 2 PICC lines removed, Port placed Past Anesthesia/Blood Transfusion Reactions: No Reported Reaction Past Psychological History: Anxiety, Bipolar, Depression, PTSD Smoking Status: Never smoker Past Alcohol Use History: None Reported Past Drug Use History: None Reported - Past Family History Mother Family Medical History: Cancer Father Family Medical History: No Reported History General Exam General appearance: alert, in no apparent distress Head exam: Present: atraumatic, normocephalic, normal inspection Eye exam: Present: normal appearance, PERRL, EOMI. Absent: scleral icterus, conjunctival injection, periorbital swelling ENT exam: Present: normal exam, mucous membranes moist Neck exam: Present: normal inspection. Absent: tenderness, meningismus, lymphadenopathy Respiratory exam: Present: normal lung sounds bilaterally. Absent: respiratory distress, wheezes, rales, rhonchi, stridor Cardiovascular Exam: Present: regular rate, normal rhythm, normal heart sounds. Absent: systolic murmur, diastolic murmur, rubs, gallop, clicks GI/Abdominal exam: Present: soft, normal bowel sounds. Absent: distended, tenderness, guarding, rebound, rigid Extremities exam: Present: normal inspection, full ROM, normal capillary refill. Absent: tenderness, pedal edema, joint swelling, calf tenderness Back exam: Present: normal inspection Neurological exam: Present: alert, oriented X3, CN II-XII intact Psychiatric exam: Present: normal affect, normal mood Skin exam: Present: warm, dry, intact, normal color. Absent: rash Course Vital Signs 02/02/22 02/02/22 02/02/22 03:55 05:36 06:38 Temperature 98.4 F 97.8 F Pulse Rate 80 110 H 92 Respiratory 18 18 18 Rate Blood Pressure 126/89 126/89 91/64 O2 Sat by Pulse 98 100 96 Oximetry - Reevaluation(s) Reevaluation #1: 02/02/22 Medical record is reviewed Reevaluation #2: 02/02/22 Patient was difficult to control pain Second dose of pain medication has improved pain Reevaluation #3: 02/02/22 Patient informed of results and questions answered Medical Decision Making - Medical Decision Making 26 female to the emergency department with acute on chronic abdominal pain recurrent abdominal pain with Crohn's disease. Feels better with hydration symptom management and can be discharged home - Lab Data Result diagrams: 02/02/22 04:16 02/02/22 04:16 Lab Results 02/02/22 02/02/22 02/02/22 Range/Units 04:16 04:16 04:16 WBC 12.8 H (3.8-10.6) k/uL RBC 4.47 (3.80-5.40) m/uL Hgb 13.2 (11.4-16.0) gm/dL Hct 40.7 (34.0-46.0) % MCV 91.1 (80.0-100.0) fL MCH 29.6 (25.0-35.0) pg MCHC 32.5 (31.0-37.0) g/dL RDW 13.2 (11.5-15.5) % Plt Count 281 (150-450) k/uL MPV 7.3 Neutrophils % 80 % Lymphocytes % 15 % Monocytes % 4 % Eosinophils % 0 % Basophils % 0 % Neutrophils # 10.2 H (1.3-7.7) k/uL Lymphocytes # 1.9 (1.0-4.8) k/uL Monocytes # 0.5 (0-1.0) k/uL Eosinophils # 0.0 (0-0.7) k/uL Basophils # 0.0 (0-0.2) k/uL Sodium 135 L (137-145) mmol/L Potassium 3.7 (3.5-5.1) mmol/L Chloride 101 (98-107) mmol/L Carbon Dioxide 24 (22-30) mmol/L Anion Gap 10 mmol/L BUN 11 (7-17) mg/dL Creatinine 0.70 (0.52-1.04) mg/dL Est GFR (CKD-EPI)AfAm >90 (>60 ml/min/1.73 sqM) Est GFR (CKD-EPI)NonAf >90 (>60 ml/min/1.73 sqM) Glucose 92 (74-99) mg/dL Plasma Lactic Acid Rehan 1.7 (0.7-2.0) mmol/L Calcium 9.2 (8.4-10.2) mg/dL Total Bilirubin 0.4 (0.2-1.3) mg/dL AST 29 (14-36) U/L ALT 14 (4-34) U/L Alkaline Phosphatase 66 (38-126) U/L Total Protein 8.0 (6.3-8.2) g/dL Albumin 4.8 (3.5-5.0) g/dL Amylase 94 (30-110) U/L Lipase 112 (23-300) U/L HCG, Quant <2.4 mIU/mL Urine Color Urine Appearance (Clear) Urine pH (5.0-8.0) Ur Specific [place] (1.001-1.035) Urine Protein (Negative) Urine Glucose (UA) (Negative) Urine Ketones (Negative) Urine Blood (Negative) Urine Nitrite (Negative) Urine Bilirubin (Negative) Urine Urobilinogen (<2.0) mg/dL Ur Leukocyte Esterase (Negative) 02/02/22 Range/Units 05:40 WBC (3.8-10.6) k/uL RBC (3.80-5.40) m/uL Hgb (11.4-16.0) gm/dL Hct (34.0-46.0) % MCV (80.0-100.0) fL MCH (25.0-35.0) pg MCHC (31.0-37.0) g/dL RDW (11.5-15.5) % Plt Count (150-450) k/uL MPV Neutrophils % % Lymphocytes % % Monocytes % % Eosinophils % % Basophils % % Neutrophils # (1.3-7.7) k/uL Lymphocytes # (1.0-4.8) k/uL Monocytes # (0-1.0) k/uL Eosinophils # (0-0.7) k/uL Basophils # (0-0.2) k/uL Sodium (137-145) mmol/L Potassium (3.5-5.1) mmol/L Chloride (98-107) mmol/L Carbon Dioxide (22-30) mmol/L Anion Gap mmol/L BUN (7-17) mg/dL Creatinine (0.52-1.04) mg/dL Est GFR (CKD-EPI)AfAm (>60 ml/min/1.73 sqM) Est GFR (CKD-EPI)NonAf (>60 ml/min/1.73 sqM) Glucose (74-99) mg/dL Plasma Lactic Acid [place]han (0.7-2.0) mmol/L Calcium (8.4-10.2) mg/dL Total Bilirubin (0.2-1.3) mg/dL AST (14-36) U/L ALT (4-34) U/L Alkaline Phosphatase (38-126) U/L Total Protein (6.3-8.2) g/dL Albumin (3.5-5.0) g/dL Amylase (30-110) U/L Lipase (23-300) U/L HCG, Quant mIU/mL Urine Color Yellow Urine Appearance Clear (Clear) Urine pH 6.0 (5.0-8.0) Ur Specific [place] 1.020 (1.001-1.035) Urine Protein Trace H (Negative) Urine Glucose (UA) Negative (Negative) Urine Ketones Negative (Negative) Urine Blood Negative (Negative) Urine Nitrite Negative (Negative) Urine Bilirubin Negative (Negative) Urine Urobilinogen <2.0 (<2.0) mg/dL Ur Leukocyte Esterase Negative (Negative) Disposition Clinical Impression: Abdominal pain, Nausea and vomiting, Intractable vomiting with nausea, Epigastric abdominal pain, Weight loss, Crohn disease Disposition: HOME SELF-CARE Condition: Fair Instructions (If sedation given, give patient instructions): Abdominal Pain (ED) Is patient prescribed a controlled substance at d/c from ED?: No Referrals: Charlotte Slade MD [Primary Care Provider] - 1-2 days Decision Time: 06:20
[2022-02-02 04:49] LABS: Basophils % (A) 0 %; Eosinophils % (A) 0 %; HCT 40.7 % (34.0-46.0); HGB 13.2 gm/dL (11.4-16.0); Lymphocytes # (A) 1.9 k/uL (1.0-4.8); Lymphocytes % (A) 15 %; MCH 29.6 pg (25.0-35.0); MCHC 32.5 g/dL (31.0-37.0); MCV 91.1 fL (80.0-100.0); Mean Platelet Volume 7.3; Monocytes # (A) 0.5 k/uL (0-1.0); Monocytes % (A) 4 %; Neutrophils # (A) 10.2 k/uL (1.3-7.7); Neutrophils % (A) 80 %; Platelet Count 281 k/uL (150-450); RBC 4.47 m/uL (3.80-5.40); RDW 13.2 % (11.5-15.5); WBC 12.8 k/uL (3.8-10.6)
[2022-02-02 05:01] LABS: ALT 14 U/L (4-34); African American GFR (CKD) >90 (>60 ml/min/1.73 sqM); Albumin 4.8 g/dL (3.5-5.0); Amylase 94 U/L (30-110); Anion Gap 10 mmol/L; Blood Urea Nitrogen 11 mg/dL (7-17); Calcium 9.2 mg/dL (8.4-10.2); Carbon Dioxide 24 mmol/L (22-30); Chloride 101 mmol/L (98-107); Glucose 92 mg/dL (74-99); Lipase 112 U/L (23-300); Non-African American GFR(CKD) >90 (>60 ml/min/1.73 sqM); Sodium 135 mmol/L (137-145); Total Bilirubin 0.4 mg/dL (0.2-1.3)
[2022-02-02] MEDS ORDERED: PROCHLORPERAZINE INJ 10 MG/2 ML VIAL IVP STA (05:26)
[2022-02-02 05:56] LABS: AST 29 U/L (14-36); Alkaline Phosphatase 66 U/L (38-126); HCG,Quantitative Serum <2.4 mIU/mL; Potassium 3.7 mmol/L (3.5-5.1)
[2022-02-02 06:05] LABS: Appearance,Urine Clear (Clear); Bilirubin,Urine Negative (Negative); Blood,Urine Negative (Negative); Color,Urine Yellow; Glucose,Urine (UA) Negative (Negative); Ketones,Urine Negative (Negative); Leukocyte Esterase,Urine Negative (Negative); Nitrite,Urine Negative (Negative); Protein,Urine Trace (Negative); Urobilinogen,Urine <2.0 mg/dL (<2.0)
[2022-02-02 06:39] VITALS: BP 91/64; PULSE 92; TEMP 97.8
== END 2022-02-02 06:43 | disposition home or self-care (01) ==
LOC: EC 03:42
DX: K50.90 Crohn's disease, unspecified, without complications (principal); R63.4 Abnormal weight loss; F31.9 Bipolar disorder, unspecified; F41.9 Anxiety disorder, unspecified; Z79.02 Long term (current) use of antithrombotics/antiplatelets; Z79.899 Other long term (current) drug therapy; Z88.0 Allergy status to penicillin; Z88.1 Allergy status to other antibiotic agents; Z90.49 Acquired absence of other specified parts of digestive tract; Z68.1 Body mass index [BMI] 19.9 or less, adult
CPT/HCPCS: 36415; 80053; 82150; 83605; 83690; 85025; 81003; 84702; 99284; 96374; 96375 ×3; 96376; 96361 ×2; J0780; J2405; J1170; C9113

== ENCOUNTER → 2022-02-19 | Outpatient (CLI) | payer MEDICARE, OTHER ==
[2022-02-19 15:10] LABS: Basophils # (A) 0.1 k/uL (0-0.2); Basophils % (A) 1 %; Eosinophils # (A) 0.1 k/uL (0-0.7); Eosinophils % (A) 2 %; HCT 38.8 % (34.0-46.0); HGB 12.4 gm/dL (11.4-16.0); Lymphocytes # (A) 1.6 k/uL (1.0-4.8); Lymphocytes % (A) 30 %; MCH 29.6 pg (25.0-35.0); MCHC 31.9 g/dL (31.0-37.0); MCV 93.1 fL (80.0-100.0); Mean Platelet Volume 7.4; Monocytes # (A) 0.2 k/uL (0-1.0); Monocytes % (A) 4 %; Neutrophils # (A) 3.4 k/uL (1.3-7.7); Neutrophils % (A) 62 %; Platelet Count 217 k/uL (150-450); RBC 4.17 m/uL (3.80-5.40); RDW 12.5 % (11.5-15.5); WBC 5.5 k/uL (3.8-10.6)
[2022-02-19 15:20] LABS: ALT 12 U/L (4-34); AST 18 U/L (14-36); African American GFR (CKD) >90 (>60 ml/min/1.73 sqM); Albumin 4.2 g/dL (3.5-5.0); Albumin/Globulin Ratio 1.4; Alkaline Phosphatase 57 U/L (38-126); Anion Gap 9 mmol/L; Blood Urea Nitrogen 10 mg/dL (7-17); Calcium 9.3 mg/dL (8.4-10.2); Carbon Dioxide 27 mmol/L (22-30); Chloride 101 mmol/L (98-107); Globulin 2.9 g/dL; Glucose 93 mg/dL (74-99); Non-African American GFR(CKD) >90 (>60 ml/min/1.73 sqM); Potassium 3.9 mmol/L (3.5-5.1); Sodium 137 mmol/L (137-145); Total Bilirubin 0.1 mg/dL (0.2-1.3); Total Protein 7.1 g/dL (6.3-8.2)
== END | disposition home or self-care (01) ==
LOC: LABWHC1 14:39
PROVIDERS: ATTEND Family Medicine
DX: R31.9 Hematuria, unspecified (principal)
CPT/HCPCS: 36415; 80053; 85025

== ENCOUNTER 2022-03-26 20:34 | Emergency (ER) | payer MEDICARE, OTHER ==
[2022-03-26 20:38] VITALS: BP 124/76; PULSE 84; RESP 16; TEMP 98.2
[2022-03-26] MEDS ORDERED: HYDROmorphone 0.5 MG/0.5 ML SYRINGE IVP STA (21:08)
[2022-03-26] MEDS ORDERED: ONDANSETRON 4 MG/2 ML VIAL IVP STA (21:08)
[2022-03-26] MEDS ORDERED: SODIUM CHLORIDE 0.9% 1,000 ML IV STA (21:08)
[2022-03-26] MEDS ORDERED: PANTOPRAZOLE 40 MG/10 ML VIAL IVP STA (21:09)
--- NOTE | 2022-03-26 21:28 | ED ---
General Adult HPI - General Chief complaint: Abdominal Pain Stated complaint: Abd pain Time Seen by Provider: 03/26/22 20:40 Source: patient, RN notes reviewed Mode of arrival: ambulatory Limitations: no limitations - History of Present Illness Initial comments: Patient is a 26-year-old female presents the emergency room with complaints of abdominal pain, nausea without emesis and constipation. She has a past medical history significant for Crohn's disease and reports that she recently underwent an upper and lower endoscopy with her primary GI provider out of [place]. She reports since that time she has been nauseated and constipated. She denies any emesis over the last few hours and she denies any emesis with blood. She denies any blood or mucus in her last bowel movement the last stated above she has been constipated. She denies any fevers, chills, chest pain, shortness of breath, weakness or lethargy. She is on Stelera for immune suppressant therapy for her Crohn's disease. In addition to her Crohn's disease she has past medical history significant for factor V deficiency bipolar depression and anxiety. She denies any other complaints or concerns at this time. - Related Data Home Medications Medication Instructions Recorded Confirmed Medroxyprogesterone Acetate 150 mg IM Q84D 03/10/18 03/26/22 [Depo-Provera] Benztropine Mesylate [Cogentin] 2 mg PO BID PRN 12/06/19 03/26/22 Ustekinumab [Stelara] 90 mg IM Q56D 12/06/19 03/26/22 Dicyclomine [Bentyl] 20 mg PO DIRECTED PRN 05/17/20 03/26/22 FLUoxetine HCL [PROzac Weekly] 90 mg PO WE@2100 05/17/20 03/26/22 hydrOXYzine pamoate [Vistaril] 50 mg PO QID PRN 05/17/20 03/26/22 oxyCODONE HCL/ACETAMINOPHEN 1 tab PO BID PRN 05/17/20 03/26/22 [Percocet 7.5-325 mg] Amitriptyline HCl [Elavil] 20 mg PO DIRECTED 08/05/21 03/26/22 Fluticasone Nasal [place] [Flonase 1 spr EA NOSTRIL DAILY PRN 08/05/21 03/26/22 Nasal [place]] Loratadine [Claritin] 10 mg PO DAILY PRN 08/05/21 03/26/22 Dextroamphetamine/Amphetamine 25 mg PO DAILY 09/12/21 03/26/22 [Adderall Xr] Tamsulosin HCl [Flomax] 0.4 mg PO HS 09/12/21 03/26/22 Clopidogrel [Plavix] 75 mg PO HS 11/27/21 03/26/22 Lurasidone HCl [Latuda] 60 mg PO HS 11/29/21 03/26/22 Metoclopramide [Reglan] 10 mg PO DIRECTED PRN 11/29/21 03/26/22 Omeprazole 40 mg PO DIRECTED 11/29/21 03/26/22 Ondansetron [Zofran] 4 mg PO DIRECTED PRN 11/29/21 03/26/22 Cyproheptadine [Cyproheptadine HCl] 4 mg PO BID 03/26/22 03/26/22 Rimegepant Sulfate [Nurtec Odt] 75 mg PO DAILY PRN 03/26/22 03/26/22 Allergies Allergy/AdvReac Type Severity Reaction Status Date / Time adalimumab [From Humira] Allergy RASH/NAUSEA/VOMITING/JOINT Verified 03/26/22 21:51 PAIN amoxicillin trihydrate Allergy Rash/Hives Verified 03/26/22 21:51 [From Augmentin] potassium clavulanate Allergy Rash/Hives Verified 03/26/22 21:51 [From Augmentin] Review of Systems ROS Statement: Those systems with pertinent positive or pertinent negative responses have been documented in the HPI. ROS Other: All systems not noted in ROS Statement are negative. Past Medical History Past Medical History: No Reported History Additional Past Medical History / Comment(s): crohns, IBD, colitis dx of crohns at age 10., Bloodclots in right arm,. 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, MRSA Date of last positivie culture/infection: 2002, Jul 2019 cdiff MDRO Source:: Hip Past Surgical History: Appendectomy, Bowel Resection, Cholecystectomy Additional Past Surgical History / Comment(s): wisdom teeth, bowel resection x 2 in 2017, sepsis after first surgery, 2 PICC lines removed, Port placed Past Anesthesia/Blood Transfusion Reactions: No Reported Reaction Past Psychological History: Anxiety, Bipolar, Depression, PTSD Smoking Status: Never smoker Past Alcohol Use History: None Reported Past Drug Use History: None Reported - Past Family History Mother Family Medical History: Cancer Father Family Medical History: No Reported History General Exam Limitations: no limitations General appearance: alert, in no apparent distress Head exam: Present: atraumatic, normocephalic, normal inspection Eye exam: Present: normal appearance, PERRL, EOMI. Absent: scleral icterus, conjunctival injection, periorbital swelling ENT exam: Present: normal exam, mucous membranes moist Neck exam: Present: normal inspection. Absent: tenderness, meningismus, lymphadenopathy Respiratory exam: Present: normal lung sounds bilaterally. Absent: respiratory distress, wheezes, rales, rhonchi, stridor Cardiovascular Exam: Present: regular rate, normal rhythm, normal heart sounds. Absent: systolic murmur, diastolic murmur, rubs, gallop, clicks GI/Abdominal exam: Present: soft, tenderness, guarding, normal bowel sounds. Absent: distended, rebound, rigid Rectal exam: Present: deferred Extremities exam: Present: normal inspection, full ROM, normal capillary refill. Absent: tenderness, pedal edema, joint swelling, calf tenderness Back exam: Present: normal inspection Neurological exam: Present: alert, oriented X3, CN II-XII intact Psychiatric exam: Present: normal affect, normal mood Skin exam: Present: warm, dry, intact, normal color. Absent: rash Course Vital Signs 03/26/22 20:35 Temperature 98.2 F Pulse Rate 84 Respiratory 16 Rate Blood Pressure 124/76 O2 Sat by Pulse 99 Oximetry Medical Decision Making - Medical Decision Making Patient is a 26-year-old female presents to the emergency room with known Crohn's disease complaining of abdominal pain without emesis or diarrhea at this time. In the setting her recent upper and lower endoscopy along with computed tomography scan approximately 2 months ago will be deferred diagnostic imaging. Will start on IV fluids along with pain management anti-medic and PPI. Will check CMP, amylase, lipase along with CBC. Pending labs will potentially check further diagnostic imaging. IV fluids infusing. Nausea stable with antiemetic Continuing to have intractable pain after half a milligram of IV push Dilaudid requesting more pain medication will give additional 1 mg. some improvement in pain with additional 1 mg of IV Dilaudid. Still some abdominal pain. Will give Reglan and Benadryl in addition to already given Dilaudid. Will Monitor response if pain improved will plan for discharge home with follow-up with her GI provider. Overall lab stable without any acute findings. No indication for further diagnostic imaging. No indication for further IV fluids after 1 L bolus. Pain stable and patient agreeable for discharge with follow-up with her primary care provider along with her GI provider. Return parameters discussed. Case discussed with Dr. Leon. - Lab Data Result diagrams: 03/26/22 21:22 03/26/22 21: Lab Results 03/26/22 03/26/22 03/26/22 Range/Units 21:22 21:22 21:30 WBC 7.1 (3.8-10.6) k/uL RBC 4.14 (3.80-5.40) m/uL Hgb 12.0 (11.4-16.0) gm/dL Hct 37.4 (34.0-46.0) % MCV 90.2 (80.0-100.0) fL MCH 29.1 (25.0-35.0) pg MCHC 32.2 (31.0-37.0) g/dL RDW 13.2 (11.5-15.5) % Plt Count 236 (150-450) k/uL MPV 7.8 Neutrophils % 56 % Lymphocytes % 36 % Monocytes % 4 % Eosinophils % 1 % Basophils % 0 % Neutrophils # 4.0 (1.3-7.7) k/uL Lymphocytes # 2.6 (1.0-4.8) k/uL Monocytes # 0.3 (0-1.0) k/uL Eosinophils # 0.1 (0-0.7) k/uL Basophils # 0.0 (0-0.2) k/uL Sodium 134 L (137-145) mmol/L Potassium 5.4 H (3.5-5.1) mmol/L Chloride 106 (98-107) mmol/L Carbon Dioxide 23 (22-30) mmol/L Anion Gap 5 mmol/L BUN 10 (7-17) mg/dL Creatinine 0.57 (0.52-1.04) mg/dL Est GFR (CKD-EPI)AfAm >90 (>60 ml/min/1.73 sqM) Est GFR (CKD-EPI)NonAf >90 (>60 ml/min/1.73 sqM) Glucose 81 (74-99) mg/dL Calcium 9.2 (8.4-10.2) mg/dL Total Bilirubin 0.7 (0.2-1.3) mg/dL AST 37 H (14-36) U/L ALT 12 (4-34) U/L Alkaline Phosphatase 44 (38-126) U/L Total Protein 7.7 (6.3-8.2) g/dL Albumin 4.5 (3.5-5.0) g/dL Amylase 70 (30-110) U/L Lipase 74 (23-300) U/L Urine Color Colorless Urine Appearance Clear (Clear) Urine pH 6.5 (5.0-8.0) Ur Specific [place] 1.006 (1.001-1.035) Urine Protein Negative (Negative) Urine Glucose (UA) Negative (Negative) Urine Ketones Negative (Negative) Urine Blood Negative (Negative) Urine Nitrite Negative (Negative) Urine Bilirubin Negative (Negative) Urine Urobilinogen <2.0 (<2.0) mg/dL Ur Leukocyte Esterase Negative (Negative) Disposition Clinical Impression: Acute abdomen Disposition: HOME SELF-CARE Condition: Stable Instructions (If sedation given, give patient instructions): Abdominal Pain (ED) Additional Instructions: Please resume your home GI cocktail and pain medication per primary care provider and gastrointestinal specialist recommendations. Continue good oral fluid intake avoiding caffeinated products. Avoid foods that may cause gastric irritation such as food times acidic foods, lactose and gluten. 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 Please return to the Emergency Department if symptoms worsen or any other concerns. Is patient prescribed a controlled substance at d/c from ED?: No Referrals: None,Stated [Primary Care Provider] - 1-2 days Time of Disposition: 23:40
[2022-03-26 21:48] LABS: Appearance,Urine Clear (Clear); Bilirubin,Urine Negative (Negative); Blood,Urine Negative (Negative); Color,Urine Colorless; Glucose,Urine (UA) Negative (Negative); Ketones,Urine Negative (Negative); Leukocyte Esterase,Urine Negative (Negative); Nitrite,Urine Negative (Negative); PH, Urine 6.5 (5.0-8.0); Protein,Urine Negative (Negative); Specific Gravity,Urine 1.006 (1.001-1.035); Urobilinogen,Urine <2.0 mg/dL (<2.0)
[2022-03-26 21:49] LABS: Basophils % (A) 0 %; Eosinophils # (A) 0.1 k/uL (0-0.7); Eosinophils % (A) 1 %; HCT 37.4 % (34.0-46.0); Lymphocytes # (A) 2.6 k/uL (1.0-4.8); Lymphocytes % (A) 36 %; MCH 29.1 pg (25.0-35.0); MCHC 32.2 g/dL (31.0-37.0); MCV 90.2 fL (80.0-100.0); Mean Platelet Volume 7.8; Monocytes # (A) 0.3 k/uL (0-1.0); Monocytes % (A) 4 %; Neutrophils % (A) 56 %; Platelet Count 236 k/uL (150-450); RBC 4.14 m/uL (3.80-5.40); RDW 13.2 % (11.5-15.5); WBC 7.1 k/uL (3.8-10.6)
[2022-03-26 21:59] LABS: ALT 12 U/L (4-34); African American GFR (CKD) >90 (>60 ml/min/1.73 sqM); Albumin 4.5 g/dL (3.5-5.0); Amylase 70 U/L (30-110); Anion Gap 5 mmol/L; Blood Urea Nitrogen 10 mg/dL (7-17); Calcium 9.2 mg/dL (8.4-10.2); Carbon Dioxide 23 mmol/L (22-30); Chloride 106 mmol/L (98-107); Glucose 81 mg/dL (74-99); Lipase 74 U/L (23-300); Non-African American GFR(CKD) >90 (>60 ml/min/1.73 sqM); Sodium 134 mmol/L (137-145); Total Bilirubin 0.7 mg/dL (0.2-1.3); Total Protein 7.7 g/dL (6.3-8.2)
[2022-03-26 22:05] LABS: AST 37 U/L (14-36); Potassium 5.4 mmol/L (3.5-5.1)
[2022-03-26 22:06] LABS: Alkaline Phosphatase 44 U/L (38-126)
[2022-03-26] MEDS ORDERED: HYDROmorphone 1 MG/ML 1 ML SYRINGE IVP STA (22:27)
[2022-03-26] MEDS ORDERED: METOCLOPRAMIDE 5 MG/ML 2 ML VIAL IVP STA (23:15)
[2022-03-26] MEDS ORDERED: diphenhydrAMINE 50 MG/ML 1 ML VIAL IVP STA (23:36)
== END 2022-03-26 23:53 | disposition home or self-care (01) ==
LOC: EC 20:34
DX: R10.0 Acute abdomen (principal); Z88.0 Allergy status to penicillin; Z88.8 Allergy status to other drugs, medicaments and biological substances
CPT/HCPCS: 36415; 80053; 82150; 83690; 85025; 81003; 99283; 96374; 96375; 96376; 96361; J2405; J1170 ×2; C9113

== ENCOUNTER 2022-04-24 21:14 | Emergency (ER) | payer MEDICARE, OTHER ==
[2022-04-24 21:29] VITALS: BP 118/78; PULSE 109; RESP 16; TEMP 98.5
--- NOTE | 2022-04-25 01:02 | ED ---
Abdominal Pain HPI - General Source: patient, family, RN notes reviewed Mode of arrival: ambulatory Limitations: no limitations - History of Present Illness MD Complaint: abdominal pain <Marva Gaspar - Last Filed: 04/25/22 00:58> - General Source: RN notes reviewed, old records reviewed - History of Present Illness MD Complaint: abdominal pain (Patient here for abdominal pain, concern for aneurysm sent by primary care) -: week(s) Location: periumbilical Migration to: no migration Severity: severe Severity scale (1-10): 10 Quality: cramping, stabbing, aching Consistency: intermittent Improves With: nothing Worsens With: nothing Associated Symptoms: nausea Treatments Prior to Arrival: prescription analgesics <Lewis Hines - Last Filed: 04/25/22 02:33> - General Chief Complaint: Abdominal Pain Stated Complaint: Abdominal pain Time Seen by Provider: 04/24/22 23:56 - History of Present Illness Initial Comments: This is a 26-year-old female with a past medical history of Crohn's disease who presents to the emergency department for abdominal pain. She was evaluated by her primary care provider today for a new abdominal pain that she describes as being pulsating. He was concerned about an aneurysm and sent her to the emergency department for further evaluation. She does have associated nausea, but attributes this to the nervousness around a possible aneurysm. She does have a very complicated past medical history with several abdominal surgeries and subsequent complications. Denies any fevers, chills, sore throat, cough, dyspnea, chest pain, palpitations, diarrhea, back pain, or headaches. (Marva Gaspar) - Related Data Home Medications Medication Instructions Recorded Confirmed Medroxyprogesterone Acetate 150 mg IM Q84D 03/10/18 03/26/22 [Depo-Provera] Benztropine Mesylate [Cogentin] 2 mg PO BID PRN 12/06/19 03/26/22 Ustekinumab [Stelara] 90 mg IM Q56D 12/06/19 03/26/22 Dicyclomine [Bentyl] 20 mg PO DIRECTED PRN 05/17/20 03/26/22 FLUoxetine HCL [PROzac Weekly] 90 mg PO WE@2100 05/17/20 03/26/22 hydrOXYzine pamoate [Vistaril] 50 mg PO QID PRN 05/17/20 03/26/22 oxyCODONE HCL/ACETAMINOPHEN 1 tab PO BID PRN 05/17/20 03/26/22 [Percocet 7.5-325 mg] Amitriptyline HCl [Elavil] 20 mg PO DIRECTED 08/05/21 03/26/22 Fluticasone Nasal [place] [Flonase 1 spr EA NOSTRIL DAILY PRN 08/05/21 03/26/22 Nasal [place]] Loratadine [Claritin] 10 mg PO DAILY PRN 08/05/21 03/26/22 Dextroamphetamine/Amphetamine 25 mg PO DAILY 09/12/21 03/26/22 [Adderall Xr] Tamsulosin HCl [Flomax] 0.4 mg PO HS 09/12/21 03/26/22 Clopidogrel [Plavix] 75 mg PO HS 11/27/21 03/26/22 Lurasidone HCl [Latuda] 60 mg PO HS 11/29/21 03/26/22 Metoclopramide [Reglan] 10 mg PO DIRECTED PRN 11/29/21 03/26/22 Omeprazole 40 mg PO DIRECTED 11/29/21 03/26/22 Ondansetron [Zofran] 4 mg PO DIRECTED PRN 11/29/21 03/26/22 Cyproheptadine [Cyproheptadine HCl] 4 mg PO BID 03/26/22 03/26/22 Rimegepant Sulfate [Nurtec Odt] 75 mg PO DAILY PRN 03/26/22 03/26/22 Allergies Allergy/AdvReac Type Severity Reaction Status Date / Time adalimumab [From Humira] Allergy RASH/NAUSEA/VOMITING/JOINT Verified 04/24/22 21:25 PAIN amoxicillin trihydrate Allergy Rash/Hives Verified 04/24/22 21:25 [From Augmentin] potassium clavulanate Allergy Rash/Hives Verified 04/24/22 21:25 [From Augmentin] Review of Systems ROS Other: All systems not noted in ROS Statement are negative. <Marva Gaspar - Last Filed: 04/25/22 00:58> ROS Other: All systems not noted in ROS Statement are negative. <Lewis Hines - Last Filed: 04/25/22 02:33> ROS Statement: Those systems with pertinent positive or pertinent negative responses have been documented in the HPI. Past Medical History Past Medical History: No Reported History Additional Past Medical History / Comment(s): crohns, IBD, colitis dx of crohns at age 10., Bloodclots in right arm,. 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, MRSA Date of last positivie culture/infection: 2002, Jul 2019 cdiff MDRO Source:: Hip Past Surgical History: Appendectomy, Bowel Resection, Cholecystectomy Additional Past Surgical History / Comment(s): wisdom teeth, bowel resection x 2 in 2017, sepsis after first surgery, 2 PICC lines removed, Port placed Past Anesthesia/Blood Transfusion Reactions: No Reported Reaction Past Psychological History: Anxiety, Bipolar, Depression, PTSD Smoking Status: Never smoker Past Alcohol Use History: None Reported Past Drug Use History: None Reported - Past Family History Mother Family Medical History: Cancer Father Family Medical History: No Reported History <Marva Gaspar - Last Filed: 04/25/22 00:58> General Exam Limitations: no limitations General appearance: alert, in distress Respiratory exam: Present: normal lung sounds bilaterally. Absent: respiratory distress, wheezes, rales, rhonchi, stridor Cardiovascular Exam: Present: normal rhythm, tachycardia, normal heart sounds. Absent: systolic murmur, diastolic murmur, rubs, gallop, clicks GI/Abdominal exam: Present: soft, other (Pulsating sensation in the chest and upper abdomen. No pulsating mass near the umbilicus.). Absent: distended, tenderness Neurological exam: Present: alert, oriented X3, CN II-XII intact Psychiatric exam: Present: normal affect, normal mood Skin exam: Present: warm, dry, intact, normal color. Absent: rash <Marva Gaspar - Last Filed: 04/25/22 00:58> General appearance: alert, in no apparent distress, anxious Head exam: Present: atraumatic, normocephalic, normal inspection Eye exam: Present: normal appearance, PERRL, EOMI. Absent: scleral icterus, conjunctival injection, periorbital swelling ENT exam: Present: normal exam, mucous membranes moist Neck exam: Present: normal inspection. Absent: tenderness, meningismus, lymphadenopathy Respiratory exam: Present: normal lung sounds bilaterally. Absent: respiratory distress, wheezes, rales, rhonchi, stridor Cardiovascular Exam: Present: normal rhythm, tachycardia, normal heart sounds. Absent: systolic murmur, diastolic murmur, rubs, gallop, clicks GI/Abdominal exam: Present: soft, normal bowel sounds. Absent: distended, tenderness, guarding, rebound, rigid Extremities exam: Present: normal inspection, full ROM, normal capillary refill. Absent: tenderness, pedal edema, joint swelling, calf tenderness Back exam: Present: normal inspection Neurological exam: Present: alert, oriented X3, CN II-XII intact Psychiatric exam: Present: normal affect, normal mood, depressed, anxious Skin exam: Present: warm, dry, intact, normal color. Absent: rash <Lewis Hines - Last Filed: 04/25/22 02:33> Course <Lewis Hines - Last Filed: 04/25/22 02:33> Vital Signs 04/24/22 21:26 Temperature 98.5 F Pulse Rate 109 H Respiratory 16 Rate Blood Pressure 118/78 O2 Sat by Pulse 98 Oximetry - Reevaluation(s) Reevaluation #1: 04/25/22 01:21 medical records reviewed (Lewis Hines) Reevaluation #2: 04/25/22 01:21 Spoke with family at length, family very upset due to inability to pass to get an IV on this patient, patient does have a poor family does not want any when using this due to the fact that it has been recurrent before she is related to re-placement, I did speak with patient and mom at length stating that we can definitely see an aneurysm on computed tomography scan without contrast or any abnormal significant abnormality that she might have of her aorta, patient is very anxious, mother is at bedside also very angry due to a combination patient's significant history of illness and current concern anxiety over possible diagnosis (Lewis Hines) Reevaluation #3: 04/25/22 02:32 Patient family informed of results here in the ER (Lewis Hines) Medical Decision Making <Marva Gaspar - Last Filed: 04/25/22 00:58> - Radiology Data Radiology results: report reviewed (CT of the abdomen and pelvis is negative for acute disease normal aorta), image reviewed <Lewis Hines - Last Filed: 04/25/22 02:33> - Medical Decision Making This is a 26-year-old female who presents to the emergency department for pulsating abdominal pain. (Marva Gaspar) 26 female sent here to rule out aortic aneurysm. Patient has no evidence of aneurysm on computed tomography scan here in the ER and can be discharged home (Lewis Hines) Disposition <Marva Gaspar - Last Filed: 04/25/22 00:58> Is patient prescribed a controlled substance at d/c from ED?: No Time of Disposition: 02:30 <Lewis Hines - Last Filed: 04/25/22 02:33> Clinical Impression: Abdominal pain Disposition: HOME SELF-CARE Condition: Good Instructions (If sedation given, give patient instructions): Abdominal Pain (ED) Referrals: Kg Dueñas MD [Primary Care Provider] - 1-2 days
--- NOTE | 2022-04-25 02:27 | CT ---
EXAMINATION TYPE: CT ChestAbdPelvis wo con DATE OF EXAM: 04/25/2022 COMPARISON: 09/22/2021 CT abdomen HISTORY: abd pain CT DLP: 439.3 mGycm Automated exposure control for dose reduction was used. Images obtained from the thoracic inlet to the floor the pelvis without contrast. The lungs are clear of infiltrate. No mediastinal adenopathy. There are no hilar masses. Heart size i s normal. Thoracic aorta has normal size. No aneurysm. There is left side central venous catheter wit h tip in the superior vena cava. No pericardial effusion. The liver spleen and stomach pancreas appear intact. The bile ducts are not dilated. Gallbladder not well seen. Gallbladder could be contracted. There is no adrenal mass. Kidneys have normal size. No hydronephrosis. Ureters are not dilated. No re troperitoneal adenopathy. There are multiple surgical clips in the right side of the abdomen involvin g the right colon. The bladder distends smoothly. Uterus is intact. No adnexal mass. No free fluid in the pelvis. There is apparent resection of the ascending colon. There is right hemicolectomy. There is no evidence of a bowel obstruction. No mesenteric edema. No ascites. No free air. The lumbar vertebrae have normal alignment. Sternum is intact. There is no paraspinal mass. No compre ssion fracture. Thoracic vertebrae appear intact. The bony pelvis is intact. IMPRESSION: There is right hemicolectomy. No acute abnormality in the abdomen pelvis. No evidence of aortic aneur ysm. Abdomen not changed compared to the old exam. Negative CT scan of the chest. No evidence of aortic aneurysm.
== END 2022-04-25 03:11 | disposition home or self-care (01) ==
LOC: EC 21:14
DX: R10.9 Unspecified abdominal pain (principal); F41.9 Anxiety disorder, unspecified; F31.9 Bipolar disorder, unspecified; Z88.8 Allergy status to other drugs, medicaments and biological substances; Z88.1 Allergy status to other antibiotic agents; Z79.899 Other long term (current) drug therapy
CPT/HCPCS: 71250; 74176; 99284

== ENCOUNTER → 2023-03-13 | Outpatient (CLI) | payer MEDICARE, OTHER ==
[2023-03-13 20:19] LABS: % Iron Saturation 32.73 (12.00-45.00); BUN/Creat Ratio 11.43 Ratio (12.00-20.00); C Reactive Protein <0.30 mg/dL (0.00-0.80); Calcium 9.9 mg/dL (8.7-10.3); Carbon Dioxide 21.1 mmol/L (21.6-31.8); Chloride 103 mmol/L (96-109); Ferritin 72.6 ng/mL (10.0-291.0); Glucose 87 mg/dL (70-110); Iron 126 UG/DL (50-170); Potassium 4.2 mmol/L (3.5-5.5); Sodium 140 mmol/L (135-145); Total Iron Binding Capacity 385 UG/DL (228-460)
== END | disposition home or self-care (01) ==
LOC: LABWHC1 13:00
DX: K50.10 Crohn's disease of large intestine without complications (principal); F41.9 Anxiety disorder, unspecified; G89.29 Other chronic pain
CPT/HCPCS: 36415; 80048; 82542; 82607; 82657; 82728; 83540; 83550; 85652; 86140; 86480

== ENCOUNTER → 2024-10-27 | Outpatient (CLI) | payer MEDICARE, OTHER ==
[2024-10-27 15:45] LABS: Basophils # (A) 0.02 X 10*3/uL (0.00-0.10); Basophils % (A) 0.3 %; Eosinophils # (A) 0.03 X 10*3/uL (0.04-0.35); Eosinophils % (A) 0.5 %; HCT 41.2 % (37.2-46.3); HGB 13.1 g/dL (12.0-15.0); Lymphocytes # (A) 1.31 X 10*3/uL (0.90-5.00); Lymphocytes % (A) 20.3 %; MCH 29.2 pg (27.0-32.0); MCHC 31.8 g/dL (32.0-37.0); Mean Platelet Volume 10.5 FL (9.5-12.2); Monocytes % (A) 4.7 %; NRBC Per 100 WBC 0 X 10*3/uL (0.00-0.01); Neutrophils # (A) 4.77 X 10*3/uL (1.80-7.70); Neutrophils % (A) 73.9 %; Platelet Count 280 X 10*3/uL (140-440); RBC 4.48 X 10*6/uL (4.10-5.20); WBC 6.45 X 10*3/uL (4.50-10.00)
[2024-10-27 16:25] LABS: ALT 17 U/L (8-44); AST 22 U/L (13-35); Albumin 4.4 g/dL (3.8-4.9); Albumin/Globulin Ratio 1.47 Ratio (1.60-3.17); Alkaline Phosphatase 57 U/L (41-126); Blood Urea Nitrogen 7.6 mg/dL (9.0-27.0); C Reactive Protein <0.30 mg/dL (0.00-0.80); Calcium 9.5 mg/dL (8.7-10.3); Carbon Dioxide 21.5 mmol/L (21.6-31.8); Chloride 102 mmol/L (96-109); Chol/HDL Ratio 1.72 Ratio; Glucose 92 mg/dL (70-110); Potassium 3.6 mmol/L (3.5-5.5); Sodium 138 mmol/L (135-145); T4, Free (Free Thyroxine) 1.18 ng/dL (0.80-1.80); Total Bilirubin 0.4 mg/dL (0.3-1.2); Total Protein 7.4 g/dL (6.2-8.2); VLDL Calculation 16.14 mg/dL (5.00-40.00)
[2024-10-27 16:27] LABS: Erythrocyte Sedimentation Rate 20 mm/Hr (0-20)
[2024-10-27 18:26] LABS: Appearance,Urine Clear (Clear); Bilirubin,Urine Negative (Negative); Blood,Urine Trace (Negative); Color,Urine Yellow (Yellow); Ketones,Urine Negative (Negative); Nitrite,Urine Negative (Negative); PH, Urine 5.5; Specific Gravity,Urine 1.029 (1.001-1.030); Urobilinogen,Urine 0.2 E.U./DL
[2024-10-27 18:34] LABS: Bacteria,Urine None Seen (None Seen)
== END | disposition home or self-care (01) ==
LOC: LABWHC1 10:29
PROVIDERS: ATTEND Internal Medicine Gastroenterology
DX: Z00.01 Encounter for general adult medical examination with abnormal findings (principal); K59.89 Other specified functional intestinal disorders; K50.90 Crohn's disease, unspecified, without complications; R10.33 Periumbilical pain
CPT/HCPCS: 36415; 80053; 80061; 81001; 82306; 82656; 83036; 83993; 84439; 84443; 85025; 85652; 86140; 86480

== ENCOUNTER → 2024-11-19 | Day surgery (SDC) | payer MEDICARE, OTHER ==
[2024-11-19 10:51] VITALS: BP 101/86; PULSE 63; RESP 18
[2024-11-19] MEDS: GLUCAGON 1 MG/ML VIAL IM STA (11:08)
--- NOTE | 2024-11-19 18:26 | MR ---
EXAMINATION TYPE: MR Enterography DATE OF EXAM: 11/19/2024 11:50 AM COMPARISON: 01/08/2024. CLINICAL INDICATION: Female, 29 years old with history of K50.90 Crohns disease; PHH, Crohns disease. TECHNIQUE: Standard multiplanar, multisequence imaging of the abdomen is performed without and with I V contrast, patient is injected with mL intravenous Gadobutrol gadolinium contrast. Oral Glucagon was given as per enterography protocol. Oral Contrast: 1500 Breeza FINDINGS: LOWER CHEST: No significant findings. ABDOMEN Bowel: Postsurgical changes to the bowel and likely terminal ileum. The ascending colon appears surgi sheeba absent. There is some narrowing of the transverse colon as it crosses midline over the abdomen possibly due to peristalsis. Prominence of the sigmoid colon wall in the pelvis just above the uterus with mild mucosal hyperenhan cement.. Wall thickening up to 4 mm. Series 801 image 113 foot-119 No evidence of bowel obstruction. No evidence additional for mucosal hyperenhancement, stricture or fistulous tract formation. Peritoneum: No evidence of pneumoperitoneum, free fluid, or adenopathy. Liver: Unremarkable. Gallbladder and Bile ducts: Unremarkable. Pancreas: Unremarkable. Spleen: Unremarkable. Adrenal glands: Unremarkable. Kidneys: Unremarkable. Bladder: Unremarkable. Reproductive: Unremarkable. Lymph Nodes: Vasculature: Unremarkable. No aortic aneurysm. Musculoskeletal: The osseous structures appear intact. Abdominal wall: Post surgical changes anterior abdominal wall. IMPRESSION: There is mild circumferential wall thickening of sigmoid colon with some enhancement correlate for pa in/active Crohn's disease. Postsurgical changes to the large bowel and suspected terminal ileum. [facility], , 11/19/2024 6:24 PM
== END ==
LOC: RADMRIMAIN 09:39
PROVIDERS: ATTEND Internal Medicine Gastroenterology
DX: K50.90 Crohn's disease, unspecified, without complications (principal)
CPT/HCPCS: 96372; 72197; 74183; J1610; A9585

== ENCOUNTER → 2025-02-26 | Outpatient (CLI) | payer MEDICARE, OTHER ==
--- NOTE | 2025-02-27 13:05 | MR ---
EXAMINATION TYPE: MR liver wo/w con DATE OF EXAM: 02/26/2025 10:34 AM COMPARISON: 11/11/2022 5. CLINICAL INDICATION: Female, 29 years old with history of K76.9 LIVER DISEASE, UNSPECIFIED; PHH, Live r disease, Crohns. TECHNIQUE: Multiplanar multi-sequence imaging was performed without contrast. Post contrast imaging was performed. Post IV contrast subtraction images were also submitted for review. IV Contrast: 6.5 mL Gadobutrol FINDINGS: LOWER CHEST: No gross irregularity. ABDOMEN Liver: No evidence for hepatic steatosis or cirrhosis. There is some subcutaneous fatty infiltration with chemical shift in phase imaging loss of signal in segment 6. Gallbladder and Bile ducts: Mild central intrahepatic biliary dilation which can be seen in normal po st cholecystomy physiology. The common bile duct is within normal limits for size. No evidence for ch oledocholithiasis. The gallbladder is surgically absent. Pancreas: No ductal dilation. No evidence for solid mass. Spleen: Normal for size. Adrenal glands: Unremarkable. Kidneys: No evidence for obstructive uropathy. No suspicious renal masses. Stomach and Bowel: No evidence for bowel wall thickening or evidence for obstruction. Postsurgical ch anges of the bowel without evidence for obstruction. Retroperitoneum/Peritoneum: No evidence of pneumoperitoneum or free fluid. Vasculature: No aortic aneurysm. Musculoskeletal: The osseous structures appear intact. Lymph Nodes: No gross evidence for lymphadenopathy. Abdominal wall: Postsurgical changes anterior abdominal wall e IMPRESSION: 1. No evidence for liver disease. No suspicious liver masses. 2. Post cholecystomy changes. 3. Postsurgical changes to the bowel without evidence for obstruction. 4. Focal fatty infiltration in segment 6 of the liver. [facility], , 02/27/2025 1:02 PM
== END | disposition home or self-care (01) ==
LOC: RADMRIMAIN 09:46
PROVIDERS: ATTEND Family Medicine
DX: K76.9 Liver disease, unspecified (principal); K76.0 Fatty (change of) liver, not elsewhere classified; Z90.49 Acquired absence of other specified parts of digestive tract; Z98.890 Other specified postprocedural states
CPT/HCPCS: 74183; A9585